=== PATIENT | female | born 1950 | race Caucasian/White ===

== ENCOUNTER 2023-08-15 10:11 | Outpatient (CLI) | payer MEDICARE, BC, SELFPAY ==
--- NOTE | 2023-08-15 10:30 | PE_ITS ---
[facility] [address] [address] Phone:?[phone] Fax:?[phone] Referring Physician Information: Elsie Dewey M.D. [address] [address] Phone:?[phone] Fax:?[phone] Patient:Chapito Cobos D.O.B:?1950 Sex:?Female Phone:?[phone] [facility] MRN:?[id number] Exam Date:?08/15/2023 EXAM: PET/CT EYES TO THIGHS, CANCER RESTAGING CLINICAL INFORMATION: Lung cancer, restaging. TECHNICAL INFORMATION: Helical acquisition of data was obtained from the orbits to the upper thighs with reconstruction of 3.75 mm thick images at 3.[address] data was used for attenuation correction. PET scanning was performed through the same anatomic range 60 minutes following administration of 9.6 mCi of 18-FDG delivered intravenously. The patient's glucose at the time of the injection was 120 mg/dL. PET, CT and PET/CT fusion images are interpreted using a computer viewing workstation. PET, CT and PET/CT fusion images were archived and saved in the patient's permanent medical record. COMPARISON: Chest CT report (no available images) from 06/22/2023. INTERPRETATION: Head and Neck: There are no abnormal hypermetabolic foci within the head or neck. There is physiologic uptake in the intracranial soft tissues. Chest: Perihilar nodule in the right upper lobe (Se 2 Im 92) measures 1.8 x 1.8 cm with a maximum SUV of 25.69. Spiculated opacity in the right lower lobe (Se 2 Im 126) has a maximum SUV of 3.97, indeterminate. Right hilar lymph node (Se 2 Im 102) measures 1.2 x 1.0 cm with a maximum SUV of 21.69. Right lower paratracheal lymph node (Se 2 Im 98) measures 1.0 x 0.6 cm with a maximum SUV of 16.66. Background mediastinal blood pool uptake has a maximum SUV of 2.54. Abdomen and Pelvis: There are no abnormal hypermetabolic foci within the abdomen or pelvis. Background hepatic parenchymal uptake has a maximum SUV of 3.10. There is physiologic excretion of radiotracer in the urine and bowel. Bilateral adnexal cysts are present, measuring up to 7 cm on the left. Skeleton, Musculature, and Integument: No abnormal hypermetabolic foci within the skeleton. No freida osteoblastic or osteolytic disease. CONCLUSION: 1. Findings suggest primary lung cancer in the right upper lobe with two ipsilateral (N2) gayle metastases. A spiculated opacity in the right lower lobe shows modest FDG uptake, indeterminate for neoplastic versus benign etiology. 2. Bilateral adnexal cysts are present. No hypermetabolism or internal complexity is identified, but recommend nonemergent pelvic ultrasound for further evaluation, if/when clinically appropriate. Electronically signed on 08/16/2023 1:17:00 PM by Vic Kennedy M.D.
== END 2023-08-15 10:12 | disposition home or self-care (01) ==
LOC: RAD 10:19
PROVIDERS: PCP Internal Medicine; Visit Provider Radiology Radiation Oncology
DX: C34.32 Malignant neoplasm of lower lobe, left bronchus or lung (principal)
CPT/HCPCS: 78815; A9552

== ENCOUNTER 2023-09-06 13:26 | Outpatient (CLI) | payer MEDICARE, BC, SELFPAY ==
--- NOTE | 2023-09-06 13:45 | MR_ITS ---
Patient: OLU ROMERO Facility:?[facility] Patient ID:?[id number] Site Patient ID:?[id number]. Site :?1950 Study:?MRI-Head W/ and W/O Cont 11cc dotarem-09/06/2023 2:51:29 PM Ordering Physician:Terrell Glover Final Report: INDICATION: Lung cancer. TECHNIQUE: Multiplanar multisequence MR imaging of the brain prior to and following intravenous contrast. COMPARISON: CT brain 03/29/2023. 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 Mild diffuse cerebral volume loss. No mass effect or midline shift. Patchy FLAIR hyperintensities in the supratentorial white matter, typical for moderate chronic microvascular ischemic changes. Small chronic infarctions within the high right frontal lobe, right basal ganglia, thalami, and right hemipons. No diffusion restriction to suggest acute infarction. No pathologic intracranial enhancement. Numerous punctate foci of susceptibility at the cortical- subcortical interface of both cerebral hemispheres, as well as involving the right cerebellar hemisphere to a lesser degree, typical for chronic microhemorrhages. No recent intracranial hemorrhage or pathologic extra-axial fluid collection. The major arterial flow voids of the skullbase are preserved. Thinning of the ocular lenses. Minimal ethmoid sinus mucosal thickening. The mastoid air cells are clear. IMPRESSION: 1. No acute intracranial abnormality or evidence for intracranial metastatic disease. 2. 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 Small chronic infarctions in the supratentorial and infratentorial parenchyma. 3. Numerous chronic microhemorrhages in the cerebral hemispheres, most typical for sequelae of cerebral amyloid angiopathy. A lesser degree of microhemorrhages in the cerebellum raises the possibility of superimposed hypertensive angiopathy. 4. Moderate chronic microvascular ischemic changes and mild diffuse cerebral volume loss. Dictated by Geo Nunez MD @ 09/07/2023 2:16:56 PM Signed by:?Geo Nunez MD @09/07/2023 2:16:56 PM (Electronic Signature)
== END 2023-09-06 13:27 | disposition home or self-care (01) ==
LOC: MRI 13:27
PROVIDERS: PCP Internal Medicine; Visit Provider Physician Assistant
DX: C34.91 Malignant neoplasm of unspecified part of right bronchus or lung (principal); I63.89 Other cerebral infarction; I67.82 Cerebral ischemia
CPT/HCPCS: 70553; A9575

== ENCOUNTER 2023-09-23 07:02 | Day surgery (SDC) | payer MEDICARE, BC, SELFPAY ==
--- OUTSIDE RECORDS SUMMARY | 2023-09-23 07:05 | XMS_ITS | Clinical Summary ---
Author Name Unknown Organization [facility] Address [place], [place] [address] Care Team Providers Care Bureau Chief Name Role Phone [facility] Primary Care Provider Allergies Active Allergy Reactions Criticality Noted Date Comments Aspirin Bleeding 03/21/2012 Atenolol Rash 02/24/2018 Penicillins *Unknown - Pt Doesn't Remember 09/16 Medications Medication Sig Dispensed Refills Start Date End Date Status multivitamin (MVI) tablet Take 1 tablet by mouth once daily. 0 2 Active medication order composer [facility] Collagen pepides, powder form, 1 scoop daily 1 Active albuterol HFA (PRO-AIR; VENTOLIN; PROVENTIL) 90 mcg/actuation inhalerIndications:C hronic obstructive pulmonary disease, unspecified COPD type (HC) Inhale 1-2 Puffs by mouth every 4 hours if needed for Shortness Of Breath or Wheezing (cough). 1 Each 2 3 Active warfarin (COUMADIN) 2 mg tabletIndications:Ce rebrovascular accident (CVA) due to embolism of left middle cerebral artery (HC),Anticoagulation monitoring, INR range 2-3,Acute ischemic stroke (HC),Cerebrovascular accident (CVA) due to thrombosis of precerebral artery (HC),Cerebrovascular accident (CVA), unspecified mechanism (HC) Take by mouth 2 mg (2 mg x 1) every Mon, Wed, Fri; 4 mg (2 mg x 2) all other days in the evening OR as directed 3 Active levothyroxine (SYNTHROID) 75 mcg tabletIndications:Hy pothyroidism (acquired) TAKE ONE TABLET BY MOUTH EVERY DAY 90 Tablet 2 3 Active sertraline (ZOLOFT) 50 mg tabletIndications:De pression, unspecified depression type TAKE ONE TABLET BY MOUTH EVERY DAY 90 Tablet 2 3 Active simvastatin (ZOCOR) 40 mg tabletIndications:Hy perlipidemia, unspecified hyperlipidemia type TAKE ONE TABLET BY MOUTH AT BEDTIME 90 Tablet 2 3 Active fluticasone bzl-yrfizxbrbhzx-ygu anterol (Trelegy Ellipta) 100-62.5-25 mcg inhalerIndications:C hronic obstructive pulmonary disease, unspecified COPD type (HC) Inhale 1 Puff by mouth once daily. 180 Each 3 4 Active HYDROcodone-acetamin ophen (5-325 mg/tablet)Indication s:Acute left-sided thoracic back pain Take 1 Tablet by mouth every 4 hours if needed for Pain. Max acetaminophen dose: 4000 mg in 24 hrs. 20 Tablet 4 09/18/19 24 Discontinu ed(*Patien t states no longer taking) Active Problems Problem Noted Date Diagnosed Date Adenocarcinoma of left lung 07/09/2018 Wears glasses 03/13/2018 Overview: Follows at [facility]. Hypothyroidism (acquired) 09/09/2017 Hyperlipidemia 08/25/2014 Depression 08/25/2014 COPD (chronic obstructive pulmonary disease) 04/2015 HTN (hypertension) 03/21/2012 Anticoagulation monitoring, INR range 2-3 2011 Overview: Ok for every 6 weeks. See telephone enc dated 08/25/14. Anticoagulation JOSE- 11/06/17 WANTS TO STAY 6 WKS INR NURSE VISITS Verbal messages may be left for anticoagulation result, dosing, and instructions. Nina Mcmanus RN .................... 11/06/2017 2:05 PM Cerebrovascular accident (CV A) due to embolism of left middle cerebral artery 10/04/2011 Resolved Problems Problem Noted Date Diagnosed Date Resolved Date Pneumonia of right middle lo be due to infectious organism 08/15/2015 12/30/2017 Encounters Date Type Department Care Team Description 09/20/[address] [facility] [place] [address] [facility], Questions 09/18/2023 11:30 AM CDT Preop Visit [address], [place] [address] [facility] DO Pre-Op Exam (port placement 0408/24 [employer] discuss going off warfrin) 09/18/2023 Travel 09/13/[address] [address] [facility] DO Referral (Port Placement order) 09/13/[address], [place] [address] [facility] DO Procedure (PORT PLACEMENT) 09/06/2023 Orders Only [facility] Scanner 1 scan: (1-Ord) [place], [place] W/WO, 09/06/2023 08/29/2023 1:00 PM CDT Orders Only [address], [place] [address] Lab, [facility] 08/29/2023 Anticoagulation (warfarin) [address], [place] [address] 1, [facility] Anticoagulation 08/29/2023 Travel 08/15/2023 Orders Only [facility] Scanner 1 scan: (1-Ord) [facility], PET SKULL TO MID THIGH, 08/15/2023 08/01/2023 1:30 PM PRODUCTION CLERK Orders Only [address] [place] [address] Lab, [facility] 08/01/2023 Anticoagulation (warfarin) [address] [place] [address] 1, [facility] Anticoagulation 08/01/2023 Travel 07/29/[address], [place] [address] [facility] DO Anticoagulation (Annual re-enrollment ) 07/24/2023 Medical Messaging [address], [place] [address] [facility] [facility] [address] Scans 07/15/2023 8:50 AM PRODUCTION CLERK Office Visit [address], [place] [address] [facility] DO Follow Up (on results) 07/14/2023 Travel 07/11/2023 1:00 PM PRODUCTION CLERK Orders Only [address], [place] [address] Lab, [facility] 07/11/2023 Anticoagulation (warfarin) [address] [place] [address] 1, [facility] Anticoagulation 07/11/2023 Travel 07/01/[address], [place] [address] [facility] DO Refill Request (Kailyn Roberts) from Last 3 Months Immunizations Name Administration Dates Next Due COVID-19 Vaccine Spikevax (M oderna 50mcg/0.5mL) 12YO+ [id number] Formula PF 03/28/2023 COVID-19 vaccine ([employer] 30mcg/0.3mL) 12YO+ BIVALENT PF, MDV 04/02/2022 COVID-19 vaccine ([employer] 30mcg/0.3mL) PF, MDV 04/20/2021,09/10/2020,08/20/2020 Influenza, High-dose Inactivated 02/13/2016,02/16 Influenza, IIV3 (Age >=3 years) 04/01/2013 Influenza, IIV4 03/10/2014 Influenza, Inactivated AIIV4 (Age 65+ Years) Preserv Free 03/28/2023,04/02/2022,04/20/2021,2019 Influenza, Inactivated IIV3 (Age 65+ Years) Preserv Free 03/13/2019,02/24/2018,03/08/2017,2012 Pneumococcal Conj 20-valent (Prevnar 20) 05/28/2022 Pneumococcal Poly,23-Valent (Pneumovax) 12/10/2013 Pneumococcal conj 13-Valent (Prevnar 13) 02/13/2016 Tdap 10/16/2012 Zoster (Shingrix-RZV, recombinant) 12/01/2018, Family History Medical History Relation Name Comments Heart Disease Brother 2 [place] Cancer-breast Maternal Aunt Diabetes Maternal Grandmother Heart Disease Mother Other Sister 2 emphysema Relation Name Status Comments Brother 1 Brother 2 Daughter Alive Father unknow Maternal Aunt Maternal Grandmother Mother (Age 71) Sister 1 (Age 54) emphysema Sister 2 Son car accident Social History Tobacco Use Types Packs/Day Years Used Date Smoking Tobacco: Former Cigarettes 2 50 0 09/18/1961 - 09/19/2011 Smokeless Tobacco: Never Tobacco Cessation:Counseling Given: Not Answered Alcohol Use Standard Drinks/Week Comments Yes 0 (1 standard drink = 0.6 oz pur e alcohol) occassionally PHQ-2 Answer Date Recorded PHQ-2 TOTAL SCORE 0 03/28/2023 Social Connections Answer Date Recorded Frequency of Communication with Friends and Fami ly Not on file 06/12/2021 Financial Resource Strain Answer Date R ecorded Difficulty of Paying Living Expenses Not on file 06/12/2021 Difficulty of Paying Living Expenses Not on file 06/12/2021 Sex and Gender Information Value Date Recorded Sex Assigned at Not on file Gender Identity Not on file Sexual Orientation Not on file Obstetrics History Last Filed Vital Signs Vital Sign Reading Time Taken Comments Blood Pressure 152/92 09/18/2023 11:59 AM CDT Pulse 75 09/18/2023 11:57 AM CDT Temperature 37.1 ??C (98.8 ??F) 03/29/2023 8:58 AM CD T Respiratory Rate 16 06/20/2023 3:30 PM PRODUCTION CLERK Oxygen Saturation 94% 09/18/2023 11:57 AM CDT Inhaled Oxygen Concentration - - Weight 59.1 kg (130 lb 3.2 oz) 09/18/2023 11:57 AM CDT Height 160 cm (5' 3) 09/18/2023 11:57 AM CDT Body Mass Index 23.06 09/18/2023 11:57 AM CDT Plan of Treatment Health Maintenance Due Date Last Done Comments Tetanus booster 10/16/2022 10/16/2012, 10/16/2012 COVID-19 vaccine series ( season) 2023 03/28/2023, 04/02/2022, 04/20/2021, Additional history exists Influenza for age 65+ 02/16/2024 03/28/2023 , 04/02/2022, 04/20/2021, Additional history exists Medicare Wellness for age 65+ 03/28/2024, 03/30/2020, 03/13/2019 Depression screening for age 12+ 03/29/2024 03/29/2023, 03/29/2023, 03/28/2023, Additional history exists Mammogram for age 45-75 04/23/2024 04/23/20, 04/08/2020, 09/16/2017, Additional history exists Low Dose CT (for lung CA) ag e 50-80 2024 2023, 11/01/2022, 10/30/2021, Additional history exists BMI (ht and wt on same day) for age 18+ 09/17/2024 09/18/2023, 07/15/2023, 03/28/2023, Additional history exists Fecal testing sDNA-FIT (Cary guard) for age 45-75 09/27/2024 09/27/2021 Lipids for age 45-75 03/28/2028 03/28/2023, 05/28/2022, 04/14/2021, Additional history exists Tdap Completed 10/16/2012 DEXA/DXA scan for age 65+ Completed 09/10/2016 Zoster (shingles) series for age 50+ Completed 12/01/2018, 09/30/2018 Hepatitis C screening for ag e 18-79 Completed 03/13/2019 Pneumococcal series for age 65+ Completed 05/28/2022, 02/13/2016, 12/10/2013 Procedures Procedure Name Priority Date/Time Associated Diagnosis Comments SCAN-MRI INTERPRETATION 09/06/2023 12:00 AM CDT PROTIME-INR STAT 08/29/2023 12:56 PM CDT Cerebrovascular accident (CVA) due to embolism of left middle cerebral artery (HC) Anticoagulation monitoring, INR range 2-3 SCAN-PET SCAN 08/15/2023 12:00 AM PRODUCTION CLERK PROTIME-INR STAT 08/01/2023 1:25 PM PRODUCTION CLERK Cerebrovascular accident (CVA) due to embolism of left middle cerebral artery (HC) Anticoagulation monitoring, INR range 2-3 PROTIME-INR STAT 07/11/2023 12:50 PM PRODUCTION CLERK Cerebrovascular accident (CVA) due to embolism of left middle cerebral artery (HC) Anticoagulation monitoring, INR range 2-3 CT CHEST WO KELLIE 2023 2:09 PM PRODUCTION CLERK Acute left-sided thoracic back pain Adenocarcinoma of left lung (HC) LIPID PANEL W REFLEX MEASURED LDL Routine 03/28/2023 1:16 PM CDT HTN (hypertension) Cerebrovascular accident (CVA) due to embolism of left middle cerebral artery (HC) Other hyperlipidemia XR MAMMO BILAT SCREENING Routine 04/23/2022 10:11 AM PRODUCTION CLERK Encounter for screening mammogram for malignant neoplasm of breast FECAL DNA (AKA COLOGUARD) Routine 09/27/2021 12:00 AM CDT Screening for colon cancer ANTI HCV Routine 03/13/2019 3:42 PM CDT Need for hepatitis C screening test XR DXA BONE DENSITY 2 SITES AXIAL Routine 09/10/2016 2:54 PM CDT Asymptomatic postmenopausal state from Last 3 Months or Most Recently Relevant to Health Maintenance Results * SCAN-MRI INTERPRETATION (09/06/2023 12:00 AM CDT) Anatomical Region Laterality Modality Other Scanner OTHER * (ABNORMAL) PROTIME-INR (08/29/2023 12:56 PM CDT) Only the most recent of3 resultswithin the time period is included. INR 2.1(H) <1.3 08/29/2023 1:13 PM CDT [facility] PROTIME 22.8(H) 10.3 - 12.3 sec 08/29/2023 1:13 PM CDT [facility] Blood BLOOD SPECIMEN / Unknown Venipuncture / Unknown 08/29/2023 12:56 PM CDT 08/29/2023 12:56 PM CDT Narrative [facility] - 08/29/2023 1:13 PM CDT ?Therapeutic Range 2.0-3.0 for most anticoagulated patients 2.5-3.5 or 4.0 for high risk patients The INR is only used for patients on stable oral anticoagulant therapy. It makes no significant contribution to the diagnosis or treatment of patients whose Protime is prolonged for other reasons. INR results are increased when heparin levels exceed 1.0 U/mL, which corresponds to an aPTT >125 seconds if the patient is on UFH. Marbella Heart DO HEMATOLOGY [facility] [address] [place] [address] * SCAN-PET SCAN (08/15/2023 12:00 AM PRODUCTION CLERK) Anatomical Region Laterality Modality Other Scanner OTHER * CT CHEST WO (2023 2:09 PM PRODUCTION CLERK) Anatomical Region Laterality Modality CHEST, THORAX, HEART Computed To mography 06/22/2023 1:16 AM PRODUCTION CLERK Addenda Addendum by Janna Wood MD on 07/17/2023 11:15 AM PRODUCTION CLERK For Patients: ??As a result of the s Act, medical imaging exams and procedure reports are released immediately into your electronic medical record. ??You may view this report before your referring provider. ?? If you have questions, please contact your health care provider. Addendum: The chest CT from July 10 2023 was compared to that of November 01, 2022. 1. A spiculated mass in the left upper lobe measuring 7.6 mm is unchanged compared to the prior study. 2. A spiculated mass near the right hilum measuring 1.8 x 1.4 cm is increased in size compared to the prior study at which time it measured 5.6 mm. 3. A spiculated mass in the right lower lobe measuring 2.2 x 1.4 cm on 2023 study currently measures 2.2 x 1.4 cm and contains more soft tissue density compared to the prior exam. 4. An ill-defined ground-glass opacity in the right lower lobe on image 64 currently measures 1.2 x 2.7 cm and appears stable compared to the prior exam. 5. These findings are concerning for metastatic disease. Consider PET-CT for further evaluation. Remainder of the exam is stable compared to the prior study. Please note that all CT scans at this facility use dose modulation, iterative reconstruction, and/or weight-based dosing when appropriate to reduce radiation dose to as low as reasonably achievable. Dictated by Janna Wood MD @ Jul 17 2023 11:14AM (Electronically Signed) ?? Impressions 06/22/2023 1:16 AM PRODUCTION CLERK 1. No etiology seen to explain left sided back pain. 2. Pulmonary masses in the left upper lobe, right hilum, right lower lobe, and left lower lobe. Findings are concerning for metastatic disease. Consider PET-CT for further evaluation. 3. Chronic pancreatitis. 4. Coronary artery disease. Please note that all CT scans at this facility use dose modulation, iterative reconstruction, and/or weight-based dosing when appropriate to reduce radiation dose to as low as reasonably achievable. Dictated by Janna Wood MD @ 06/22/2023 1:16:40 AM (Electronically Signed) Narrative 06/22/2023 1:16 AM PRODUCTION CLERK For Patients: ??As a result of the 21st Century Cures Act, medical imaging exams and procedure reports are released immediately into your electronic medical record. ??You may view this report before your referring provider. ??If you have questions, please contact your health care provider. INDICATION: Acute left-sided thoracic back pain, history of adenocarcinoma of the left lower lobe TECHNIQUE: CT chest without contrast. COMPARISON: Chest radiograph March 12, 2022 FINDINGS: Cardiovascular structures: Heart size is normal. Coronary artery calcifications. Thoracic aorta and main pulmonary artery are normal in caliber. ? Mediastinum and ruy: No sign of mass or adenopathy. ?? Lungs: Emphysema. 7.6 mm pulmonary nodule in left upper lobe on image 14 series 3. Spiculated mass near the right hilum measuring 1.8 x 1.4 cm. Spiculated mass in the right lower lobe measuring 2.2 x 1.4 cm. Ill-defined ground-glass opacity in the right lower lobe image 64 series 3. 1.2 x 2.7 cm mass in the left lower lobe image 61 series 3. Pleura and pericardium: No effusions. ?? Chest wall and axilla: No mass or adenopathy. ?? Upper abdomen: Multiple pancreatic calcifications. Bones: No significant findings. Specifically, no fracture, subluxation, bony erosion, or suspicious osseous lesion. Procedure Note Janna Wood MD - 06/22/2023 For Patients: As a result of the Cures Act, medical imagingexams and procedure reports are released immediately into your electronicmedical record. You may view this report before your referring provider.If you have questions, please contact your health care provider. INDICATION: Acute left-sided thoracic back pain, history of adenocarcinoma of the leftlower lobe TECHNIQUE: CT chest without contrast. COMPARISON: Chest radiograph March 12, 2022 FINDINGS: Cardiovascular structures: Heart size is normal. Coronary arterycalcifications. Thoracic aorta and main pulmonary artery are normal incaliber. Mediastinum and ruy: No sign of mass or adenopathy. Lungs: Emphysema. 7.6 mm pulmonary nodule in left upper lobe on image 14series 3. Spiculated mass near the right hilum measuring 1.8 x 1.4 cm.Spiculated mass in the right lower lobe measuring 2.2 x 1.4 cm.Ill-defined ground-glass opacity in the right lower lobe image 64 series3. 1.2 x 2.7 cm mass in the left lower lobe image 61 series 3. Pleura and pericardium: No effusions. Chest wall and axilla: No mass or adenopathy. Upper abdomen: Multiple pancreatic calcifications. Bones: No significant findings. Specifically, no fracture, subluxation,bony erosion, or suspicious osseous lesion. IMPRESSION: 1. No etiology seen to explain left sided back pain. 2. Pulmonary masses in the left upper lobe, right hilum, right lower lobe,and left lower lobe. Findings are concerning for metastatic disease.Consider PET-CT for further evaluation. 3. Chronic pancreatitis. 4. Coronary artery disease. Please note that all CT scans at this facility use dose modulation,iterative reconstruction, and/or weight-based dosing when appropriate toreduce radiation dose to as low as reasonably achievable. Dictated by Janna Wood MD @ 06/22/2023 1:16:40 AM (Electronically Signed) [facility] DO CT * (ABNORMAL) LIPID PANEL W REFLEX MEASURED LDL (03/28/2023 1:16 PM CDT) CHOLESTEROL,TOTAL 167 100 - 199 mg/dL 03/28/2023 2:56 PM [facility] Comment: Cholesterol, Total Reference Ranges Desirable <200 mg/dL Borderline 200-239 mg/dL High >=240 mg/dL TRIGLYCERIDES 150(H) <150 mg/dL 03/28/2023 2:56 PM [facility] HDL CHOLESTEROL 66 >40 mg/dL 2:56 PM [facility] NON-HDL CHOLESTEROL 101 <145 mg/dl 03/28/2023 2:56 PM [facility] CHOL/HDL RATIO 2.53 <4.50 03/28/2023 2:56 PM [facility] LDL CHOLESTEROL 71 <=130 mg/dL 03/28/2023 2:56 PM [facility] VLDL CHOLESTEROL 30 <=30 mg/dL 03/28/2023 2:56 PM [facility] PROVIDER ORDERED STATUS RANDOM 03/28/2023 2:56 PM CDT [facility] Blood BLOOD SPECIMEN / Unknown Venipuncture / Unknown 03/28/2023 1:16 PM CDT 03/28/2023 1:17 PM CDT [facility] DO CHEMISTRY [facility] [address] [place] [address] * XR MAMMO BILAT SCREENING (04/23/2022 10:11 AM PRODUCTION CLERK) Anatomical Region Laterality Modality BREASTS, Breast Left, Breast Right Bilateral Mammography Impressions 04/23/2022 11:55 AM PRODUCTION CLERK ??There is no radiographic evidence for malignancy. ??Recommend annual mammograms. MAMMOGRAM ASSESSMENT: ??ACR 1 Negative PATIENTS: You will also receive a letter with your examination results in an easy to read format. ??If you have questions about your results, please contact your referring provider. Narrative 04/23/2022 11:55 AM PRODUCTION CLERK For Patients: As a result of the Century Cures Act, medical imaging exams and procedure reports are released immediately into your electronic medical record. You may view this report before your referring provider. If you have questions, please contact your health care provider. XR MAMMO BILAT SCREENING [[id number]] CLINICAL HISTORY: ??This is an asymptomatic 71 y.o. patient. INDICATION FOR EXAM: Mammogram Screening. TECHNIQUE: CC & MLO views were obtained. ??This study was evaluated with the assistance of Computer-Aided Detection. COMPARISON FILM: Yes 04/08/20 ? FINDINGS: ??The breasts have scattered areas of fibroglandular density. There are no dominant masses, suspicious micro calcifications or areas of architectural distortion. [facility] DO MAMMO * FECAL DNA (AKA COLOGUARD) (09/27/2021 12:00 AM CDT) [facility] DO COMMUNICATION ORD * ANTI HCV (03/13/2019 3:42 PM CDT) HEPATITIS C ANTIBODY Non-React thanh Non-React thanh 03/13/2019 11:18 PM CDT [facility] Comment:Antibodies to HCV no t detected; does not exclude the possibility of exposure to HCV. Blood BLOOD SPECIMEN / Unknown Venipuncture / Unknown 03/13/2019 3:42 PM CDT 03/13/2019 3:42 PM CDT [facility] DO SEND OUTS [facility] [address] [place] [address], [place] * XR DXA BONE DENSITY 2 SITES AXIAL (09/10/2016 2:54 PM CDT) Anatomical Region Laterality Modality Spine, HIPS, HIPL, HIPR Bone Den sitometry Narrative 09/12/2016 8:48 AM CDT Please see scanned document for results of this study. [facility] DO DEXA from Last 3 Months or Most Recently Relevant to Health Maintenance Advance Directives Documents on File Type Date Recorded Patient Spring Forger Expl anation Healthcare Directive 06/30/2012 2:01 PM AD SHAFFER DIRECTIVE, 06/30/2012 Care Teams Bureau Chief Relationship Specialty Start Date End Date [facility] Heart DO [address] [place] [address] [place] [address] PCP - General Internal Medicine 08/25/14
--- OUTSIDE RECORDS SUMMARY | 2023-09-23 07:06 | XMS_ITS ---
Author Name Unknown Organization [facility] Address [address] [place] [address] Care Team Providers Care Shot Lighter Name Role Phone Unavailable Primary Care Provider Unavailabl e Active Problems Problem Noted Date Diagnosed Date Malignant Neoplasm Of Lung Right 08/29/2023 Malignant Neoplasm Of Lung Left 03/03/2015 Current Oncology Plans No current plan information found. Past Plans No past plan information found. Radiation Treatments * No radiation treatments are documented for this patient in [facility]. Treatments may have been administered in another system. Lifetime Dose Tracking * Chemical Lifetime Dose Automatic Entry Manual Entr y Radiation 264.4 mGy 264.4 mGy 0 mGy Fluoro Time 9.29 minutes 9.29 minutes 0 minutes DAP (uGy-m2) 4,088.8 uGy-m2 4,088.8 uGy-m2 0 uGy-m2
--- OUTSIDE RECORDS SUMMARY | 2023-09-23 07:06 | XMS_ITS | Encounter Summary ---
Author Name Unknown Organization [facility] Address [address] [place] [address] Care Team Providers Care Flat Lock Operator Name Role Phone Unavailable Primary Care Provider Unavailabl e Reason for Referral * Radiation Therapy (Routine) - Closed Specialty Diagnoses / Procedures Referred By Ervin frye Referred To Contact Diagnoses Malignant Neoplasm Of Lung Right (HCC) Procedures Initial Rad Onc Treatment Planning CT Simulation Elsie Dewey M.D. [address] [place] [address] [facility] Region Referral ID Status Reason Start Date Expiration Date Visits Re quested Visits Authorized [id number] Closed 09/09/2023 09/08/2024 1 1 Reason for Visit * Radiation Therapy (Routine) - Closed Specialty Diagnoses / Procedures Referred By Ervin frye Referred To Contact Diagnoses Malignant Neoplasm Of Lung Right (HCC) Procedures Initial Rad Onc Treatment Planning CT Simulation Elsie Dewey M.D. [address] [place] [address] [facility] Region Referral ID Status Reason Start Date Expiration Date Visits Re quested Visits Authorized [id number] Closed 09/09/2023 09/08/2024 1 1 Encounter Details Date Type Department Care Team (Latest Contact Info) Description 09/11/2023 12:30 PM CDT - 09/11/2023 3:09 PM CDT Hospital Encounter Department of Radiation Oncology in [place], [place] [address] [place] [phone] Elsie Dewey M.D. [address] [place] [address] Malignant Neoplasm Of Lung Right (HCC) Social History Tobacco Use Types Packs/Day Years Used Date Smoking Tobacco: Former Cigarettes 2.5 45 0 09/25/1962 - 10/19/2011 Smokeless Tobacco: Never Alcohol Use Standard Drinks/Week Comments Yes 1 (1 standard drink = 0.6 oz pur e alcohol) Humiliation, Afraid, Rape, and Kick questionnair e Answer Date Recorded Within the last year, have y ou been afraid of your partner or ex-partner? No 10/31/2022 Within the last year, have y ou been humiliated or emotionally abused in other ways by your partner or ex-partner? No Within the last year, have y ou been kicked, hit, slapped, or otherwise physically hurt by your partner or ex-partner? No 10/31/2022 Within the last year, have y ou been raped or forced to have any kind of sexual activity by your partner or ex-partner? No 10/31/2022 Social Connection and Isolation Panel [NHANES] A nswer Date Recorded In a typical week, how many times do you talk on the phone with family, friends, or neighbors? Once a week 10/31/2022 How often do you get togethe r with friends or relatives? Patient declined 10/31/2022 How often do you attend caodaism or orthodoxy serv ices? Never 10/31/2022 Do you belong to any clubs o r organizations such as caodaism groups, unions, fraternal or athletic groups, or school groups? No 10/31/2022 How often do you attend meet ings of the clubs or organizations you belong to? Never 10/31/2022 Are you , , di vorced, , never , or living with a partner? 10/31/2022 AUDIT-C Answer Date Recorded Q1: How often do you have a drink containing alc ohol? Monthly or less 10/31/2022 Q2: How many drinks containi ng alcohol do you have on a typical day when you are drinking? 3 or 4 10/31/2022 Q3: How often do you have si x or more drinks on one occasion? Never 10/31/2022 Overall Financial Resource Strain (CARDIA) Answe r Date Recorded How hard is it for you to pa y for the very basics like food, housing, medical care, and heating? Not hard at all 10/31/2022 [facility] Occup[facility] - Occupational Stress Questionnaire Answer Date Recorded Do you feel stress - tense, restless, nervous, or anxious, or unable to sleep at night because your mind is troubled all the time - these days? Only a little 10/31/2022 Exercise Vital Sign Answer Date Recorde d On average, how many days pe r week do you engage in moderate to strenuous exercise (like a brisk walk)? 3 days 10/31/2022 On average, how many minutes do you engage in exercise at this level? 60 min 10/31/2022 Hunger Vital Sign Answer Date Recorded Within the past 12 months, y ou worried that your food would run out before you got the money to buy more. Never true 11/01/19 23 Within the past 12 months, t he food you bought just didn't last and you didn't have money to get more. Never true 10/31/2022 PRAPARE - Transportation Answer Date Re corded In the past 12 months, has l ack of transportation kept you from medical appointments or from getting medications? No 10/15 In the past 12 months, has l ack of transportation kept you from meetings, work, or from getting things needed for daily living? No 10/31/2022 Housing Stability Vital Sign Answer Mckay e Recorded In the last 12 months, was t here a time when you were not able to pay the mortgage or rent on time? No 10/31/2022 In the last 12 months, how many places have you lived? 1 10/31/2022 In the last 12 months, was t here a time when you did not have a steady place to sleep or slept in a residential (including now)? No 10/31/2022 Nutrition Answer Date Recorded Nutrition: EVOO Fat Source Yes 10/31 On average, how many serving s of fruits and vegetables do you eat per day (serving size is equal to 1 cup or approximately the size of a tennis ball)? 2-3 10/31/2022 Dental Answer Date Recorded Dental: Regular Dentist No 11/01/19 Employment Answer Date Recorded Employment status Retired 10/31/2022 Education Answer Date Recorded What is the highest level of school you have completed or the highest degree you have received? 10th grade 10/24/2020 Sex and Gender Information Value Date Recorded Sex Assigned at Female 04/17/2018 10:15 AM CDT Gender Identity Female 04/17/2018 10:15 AM CDT Sexual Orientation Straight 04/17/2018 10 :15 AM CDT documented as of this encounter Medications at Time of Discharge Medication Sig Dispensed Refills Start Date End Date albuterol 90 mcg/actuation inhaler INHALE ONE TO TWO PUFFS BY MOUTH EVERY 4 HOURS NEEDED FOR SHORTNESS OF BREATH OR WHEEZING 0 levothyroxine (SYNTHROID, LEVOTHROID) 75 mcg tablet Take 75 mcg by mouth daily. 0 05/28/2022 multivitamin tablet Take 1 tablet by mouth daily. 0 09/19/2011 sertraline (ZOLOFT) 50 mg tablet Take 50 mg by mouth daily. 0 05/28/2022 simvastatin (ZOCOR) 40 mg tablet Take 40 mg by mouth at bedtime. 0 05/28/2022 warfarin (COUMADIN) 2 mg tablet TAKE 1.5 TABLETS BY MOUTH EVERY E AND SAT; TAKE TWO TABLETS ALL OTHER DAYS OR DIRECTED 0 09/17/2022 Advair Diskus 250-50 mcg/act diskus inhaler 1 puff 2 (two) times a day. 0 10/10/2022 09/13/2023 ipratropium-albuterol (COMBIVENT RESPIMAT) 20-100 mcg/actuation inhaler Inhale 1-2 puffs 4 (four) times a day as needed. shortness of breath, wheezing 0 11/25/2013 09/13/2023 ipratropium-albuteroL (Combivent Respimat) 20-100 mcg/actuation inhaler Inhale 1 puff as needed. 0 05/28/2022 09/13/2023 documented as of this encounter Procedure Notes * Ese Castaneda José Miguel, RTT - 09/11/2023 1:00 PM CDTAssociated Order(s): Initial Rad Onc Treatment Planning CT Simulation Pre-Procedure Diagnose(s): Malignant Neoplasm Of Lung Right (HCC) Post-Procedure Diagnose(s): Malignant Neoplasm Of Lung Right (HCC) Initial Rad Onc Treatment Planning CT Simulation Performed by: Elsie Dewey M.D. Authorized by: Elsie Dewey M.D. Simulation was performed under physician supervision based on physician order in preparation for radiation therapy. Physician was immediately available to provide assistance and direction throughout the procedure. Written consent for treatment was completed or confirmed. The patient was appropriately identified and placed in the treatment position using the necessary immobilization to ensure a reproducible treatment position. Reference smith were placed to facilitate marking of isocenter. Area scanned:Chest Contrast used for the simulation procedure: IV Patient position:head first supine and arms up Custom immobilization: Vac-cara Motion management: 4D CT scan Bolus: No CT guidance: Following positioning of the patient, a series of slices was obtained to be utilized in treatment planning. CT images were transferred to the Eclipse treatment planning system, after a reference isocenter was determined and marked. Segmentation and treatment planning will take place prior to treatment delivery. Patient set up and imaging was appropriate and completed without incident. Skirt Panel Assembler use:No Associated attestation - Elsie Dewey M.D. - 09/11/2023 3:09 PM CDT I was present during all critical and eubanks portions of the procedure(s) and immediately available [facility] services the entire duration. See note for details. documented in this encounter Plan of Treatment Upcoming Encounters Date Type Department Care Team (Late st Contact Info) Description 09/23/2023 2:00 PM CDT Appointment Department of Radiation Oncology in [address] [phone] Elsie Dewey M.D. [address] [place] [phone] 09/24/2023 9:00 AM CDT Appointment Department of Radiation Oncology in [place], [place] [address] [place] [address] Elsie Dewey M.D. [address] [place] [phone] 09/24/2023 9:30 AM CDT Appointment Department of Radiation Oncology in [address] [phone] Elsie Dewey M.D. [address] [place] [phone] 09/25/2023 1:00 PM CDT Appointment Department of Radiation Oncology in [place], [place] [address] [place] [phone] Elsie Dewey M.D. [address] [place] [phone] 09/26/2023 1:00 PM CDT Appointment Department of Radiation Oncology in [address] [address] Elsie Dewey M.D. [address] [place] [phone] 09/26/2023 1:15 PM CDT Appointment Department of Radiation Oncology in [address] [phone] Elsie Dewey M.D. [address] [place] [phone] Kirsten Bella R.N. [address] [place] [phone] 09/27/2023 1:00 PM CDT Appointment Department of Radiation Oncology in [address] [phone] Elsie Dewey M.D. [address] [place] [address] 09/30/2023 1:00 PM CDT Appointment Department of Radiation Oncology in [address] [address] Elsie Dewey M.D. [address] [place] [phone] 10/01/2023 1:45 PM CDT Appointment Department of Radiation Oncology in [address] [address] Elsie Dewey M.D. [address] [place] [phone] 10/01/2023 2:00 PM CDT Appointment Department of Radiation Oncology in [address] [address] Elsie Dewey M.D. [address] [place] [phone] 10/02/2023 1:00 PM CDT Appointment Department of Radiation Oncology in [address] [address] Elsie Dewey M.D. [address] [place] [phone] 10/03/2023 1:45 PM CDT Appointment Department of Radiation Oncology in [address] [address] Elsie Dewey M.D. [address] [place] [address] 10/04/2023 1:45 PM CDT Appointment Department of Radiation Oncology in [place], [place] [address] [place] [phone] Elsie Dewey M.D. [address] [place] [phone] 10/07/2023 1:45 PM CDT Appointment Department of Radiation Oncology in [address] [phone] Elsie Dewey M.D. [address] [place] [phone] 10/08/2023 1:45 PM CDT Appointment Department of Radiation Oncology in [address] [address] Elsie Dewey M.D. [address] [place] [phone] 10/08/2023 2:00 PM CDT Appointment Department of Radiation Oncology in [address] [address] Elsie Dewey M.D. [address] [place] [phone] 10/09/2023 1:45 PM CDT Appointment Department of Radiation Oncology in [address] [address] Elsie Dewey M.D. [address] [place] [address] 10/10/2023 1:45 PM CDT Appointment Department of Radiation Oncology in [place], [place] [address] [place] [address] Elsie Dewey M.D. [address] [place] [address] 10/11/2023 1:45 PM CDT Appointment Department of Radiation Oncology in [place], [place] [address] [place] [phone] Elsie Dewey M.D. [address] [place] [phone] 10/14/2023 1:45 PM CDT Appointment Department of Radiation Oncology in [address] [phone] Elsie Dewey M.D. [address] [place] [phone] 10/15/2023 1:45 PM CDT Appointment Department of Radiation Oncology in [address] [address] Elsie Dewey M.D. [address] [place] [phone] 10/15/2023 2:15 PM CDT Appointment Department of Radiation Oncology in [address] [address] Elsie Dewey M.D. [address] [place] [phone] 10/16/2023 1:45 PM CDT Appointment Department of Radiation Oncology in [address] [address] Elsie Dewey M.D. [address] [place] [phone] 10/17/2023 1:45 PM CDT Appointment Department of Radiation Oncology in [place], [place] [address] [place] [phone] Elsie Dewey M.D. [address] [place] [address] 10/18/2023 1:45 PM CDT Appointment Department of Radiation Oncology in [place], [place] [address] [place] [phone] Elsie Dewey M.D. [address] [place] [address] 10/21/2023 1:45 PM CDT Appointment Department of Radiation Oncology in [address] [address] Elsie Dewey M.D. [address] [place] [phone] 10/22/2023 1:45 PM CDT Appointment Department of Radiation Oncology in [address] [address] Elsie Dewey M.D. [address] [place] [address] 10/22/2023 2:00 PM CDT Appointment Department of Radiation Oncology in [place], [place] [address] [place] [phone] Elsie Dewey M.D. [address] [place] [phone] 10/23/2023 1:45 PM CDT Appointment Department of Radiation Oncology in [place], [place] [address] [place] [phone] Elsie Dewey M.D. [address] [place] [address] 10/24/2023 1:45 PM CDT Appointment Department of Radiation Oncology in [place], [place] [address] [place] [phone] Elsie Dewey M.D. [address] [place] [address] 10/25/2023 1:45 PM CDT Appointment Department of Radiation Oncology in [address] [address] Elsie Dewey M.D. [address] [place] [phone] 10/28/2023 1:45 PM CDT Appointment Department of Radiation Oncology in [address] [address] Elsie Dewey M.D. [address] [place] [address] 10/29/2023 1:45 PM CDT Appointment Department of Radiation Oncology in [address] [address] Elsie Dewey M.D. [address] [place] [address] 10/29/2023 2:00 PM CDT Appointment Department of Radiation Oncology in [address] [address] Elsie Dewey M.D. [address] [place] [address] 10/30/2023 1:45 PM CDT Appointment Department of Radiation Oncology in [place], [place] [address] [place] [address] Elsie Dewey M.D. [address] [place] [address] 10/31/2023 1:45 PM CDT Appointment Department of Radiation Oncology in [place], [place] [address] [place] [phone] Elsie Dewey M.D. [address] [place] [phone] 11/01/2023 1:45 PM CDT Appointment Department of Radiation Oncology in [place], [place] [address] [place] [address] Elsie Dewey M.D. [address] [place] [phone] documented as of this encounter Procedures Procedure Name Priority Date/Time Associated Diagnosis Comments INITIAL RAD ONC TREATMENT PLANNING CT SIMULATION Routine 09/11/2023 1:00 PM CDT Malignant Neoplasm Of Lung Right (HCC) documented in this encounter Results * Initial Rad Onc Treatment Planning CT Simulation (09/11/2023 1:00 PM CDT) Narrative [facility] - 09/11/2023 1:00 PM CDT Ese Castaneda, RTT ? 09/11/2023 ??1:10 PM Initial Rad Onc Treatment Planning CT Simulation Performed by: Elsie Dewey M.D. Authorized by: Zuleima, Elsie I., M.D. ?? Elsie Dewey M.D. RADIATION ONCOLOG Y ORDERABLES MENDOZA JAIME na documented in this encounter Visit Diagnoses Diagnosis Malignant Neoplasm Of Lung Right (HCC) documented in this encounter
--- OUTSIDE RECORDS SUMMARY | 2023-09-23 07:06 | XMS_ITS | Encounter Summary ---
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 [address] [place] [phone] Social History Tobacco Use Types Packs/Day Years [...] declined 10/31/2022 How often do you attend baptist or denominational serv ices? Never 10/31/2022 Do you belong to any clubs o r organizations such as baptist groups, unions, fraternal or athletic groups, or [...] and heating? Not hard at all 10/31/2022 [facility] - Occupational Stress Questionnaire Answer Date Recorded [...] the money to buy more. Never true 05/17/20 23 Within the past 12 months, t [...] place to sleep or slept in a detention (including now)? No 10/31/2022 Nutrition Answer Date [...] AM CDT documented as of this encounter Miscellaneous Notes * Tumor Board Note - Elsie Dewey M.D. - 09/10/2023 1:12 PM CDT MULTIDISCIPLINARY TUMOR BOARD NOTE This patient's case was presented at our multidisciplinary tumor board on 09/10/[address] Elsie Dewey. 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 Pathology reviewed: none Discussion: We discussed that we are still waiting for her PDL1 and NGS testing. We discussed that she likely would not want neoadjuvant chemotherapy and that she is a good candidate for definitive radiation and chemotherapy. Medical Oncology suggested weekly carboplatin/taxol with definitive radiation. If she is felt not to be a chemotherapy candidate, then hypofractionated radiation alone is reasonable. Adjuvant immunotherapy would depend upon NGS testing. Recommendation: See above. Elsie Dewey M.D. Note: Tumor board recommendations are developed via multidisciplinary specialty participation with the most current information available at that time, therefore, final treatment plan is to be decided between the patient and the treating physician. documented in this encounter Plan of Treatment Upcoming Encounters Date Type Department Care Team (Late st Contact Info) Description 09/23/2023 2:00 PM CDT Appointment Department of Radiation Oncology in [address] [phone] Elsie Dewey M.D. [address] [place] [phone] 09/24/2023 9:00 AM CDT Appointment Department of Radiation Oncology in [address] [phone] Elsie Dewey M.D. [address] [place] [phone] 09/24/2023 9:30 AM CDT Appointment Department of Radiation Oncology in [address] [phone] Elsie Dewey M.D. [address] [place] [phone] 09/25/2023 1:00 PM CDT Appointment Department of Radiation Oncology in [address] [phone] Elsie Dewey M.D. [address] [place] [phone] 09/26/2023 1:00 PM CDT Appointment Department of Radiation Oncology in [place], [place] [address] [place] [address] Elsie Dewey M.D. [address] [place] [phone] 09/26/2023 1:15 PM CDT Appointment Department of Radiation Oncology in [place], [place] [address] [place] [phone] Elsie Dewey M.D. [address] [place] [phone] Kirsten Bella R.N. [address] [place] [phone] 09/27/2023 1:00 PM CDT Appointment Department of Radiation Oncology in [place], [place] [address] [place] [phone] Elsie Dewey M.D. [address] [place] [phone] 09/30/2023 1:00 PM CDT Appointment Department of Radiation Oncology in [place], [place] [address] [place] [address] Elsie Dewey M.D. [address] [place] [phone] 10/01/2023 1:45 PM CDT Appointment Department of Radiation Oncology in [place], [place] [address] [place] [address] Elsie Dewey M.D. [address] [place] [phone] 10/01/2023 2:00 PM CDT Appointment Department of Radiation Oncology in [place], [place] [address] [place] [phone] Elsie Dewey M.D. [address] [place] [address] 10/02/2023 1:00 PM CDT Appointment Department of Radiation Oncology in [place], [place] [address] [place] [phone] Elsie Dewey M.D. [address] [place] [phone] 10/03/2023 1:45 PM CDT Appointment Department of Radiation Oncology in [place], [place] [address] [place] [phone] Elsie Dewey M.D. [address] [place] [phone] 10/04/2023 1:45 PM CDT Appointment Department of Radiation Oncology in [address] [address] Elsie Dewey M.D. [address] [place] [phone] 10/07/2023 1:45 PM CDT Appointment Department of Radiation Oncology in [address] [address] Elsie Dewey M.D. [address] [place] [phone] 10/08/2023 1:45 PM CDT Appointment Department of Radiation Oncology in [address] [place] [address] Elsie Dewey M.D. [address] [place] [phone] 10/08/2023 2:00 PM CDT Appointment Department of Radiation Oncology in [address] [address] Elsie Dewey M.D. [address] [place] [phone] 10/09/2023 1:45 PM CDT Appointment Department of Radiation Oncology in [address] [address] Elsie Dewey M.D. [address] [place] [phone] 10/10/2023 1:45 PM CDT Appointment Department of Radiation Oncology in [place], [place] [address] [place] [phone] Elsie Dewey M.D. [address] [place] [phone] 10/11/2023 1:45 PM CDT Appointment Department of Radiation Oncology in [place], [place] [address] [place] [address] Elsie Dewey M.D. [address] [place] [phone] 10/14/2023 1:45 PM CDT Appointment Department of Radiation Oncology in [address] [phone] Elsie Dewey M.D. [address] [place] [phone] 10/15/2023 1:45 PM CDT Appointment Department of Radiation Oncology in [address] [phone] Elsie Dewey M.D. [address] [place] [address] 10/15/2023 2:15 PM CDT Appointment Department of Radiation Oncology in [address] [phone] Elsie Dewey M.D. [address] [place] [phone] 10/16/2023 1:45 PM CDT Appointment Department of Radiation Oncology in [address] [phone] Elsie Dewey M.D. [address] [place] [phone] 10/17/2023 1:45 PM CDT Appointment Department of Radiation Oncology in [address] [phone] Elsie Dewey M.D. [address] [place] [phone] 10/18/2023 1:45 PM CDT Appointment Department of Radiation Oncology in [address] [address] Elsie Dewey M.D. [address] [place] [phone] 10/21/2023 1:45 PM CDT Appointment Department of Radiation Oncology in [address] [address] Elsie Dewey M.D. [address] [place] [phone] 10/22/2023 1:45 PM CDT Appointment Department of Radiation Oncology in [place], [place] [address] [place] [phone] Elsie Dewey M.D. [address] [place] [phone] 10/22/2023 2:00 PM CDT Appointment Department of Radiation Oncology in [place], [place] [address] [place] [phone] Elsie Dewey M.D. [address] [place] [phone] 10/23/2023 1:45 PM CDT Appointment Department of Radiation Oncology in [place], [place] [address] [place] [phone] Elsie Dewey M.D. [address] [place] [phone] 10/24/2023 1:45 PM CDT Appointment Department of Radiation Oncology in [place], [place] [address] [place] [phone] Elsie Dewey M.D. [address] [place] [phone] 10/25/2023 1:45 PM CDT Appointment Department of Radiation Oncology in [address] [address] Elsie Dewey M.D. [address] [place] [phone] 10/28/2023 1:45 PM CDT Appointment Department of Radiation Oncology in [place], [place] [address] [place] [phone] Elsie Dewey M.D. [address] [place] [phone] 10/29/2023 1:45 PM CDT Appointment Department of Radiation Oncology in [place], [place] [address] [place] [phone] Elsie Dewey M.D. [address] [place] [phone] 10/29/2023 2:00 PM CDT Appointment Department of Radiation Oncology in [address] [address] Elsie Dewey M.D. [address] [place] [phone] 10/30/2023 1:45 PM CDT Appointment Department of Radiation Oncology in [address] [address] Elsie Dewey M.D. [address] [place] [phone] 10/31/2023 1:45 PM CDT Appointment Department of Radiation Oncology in [address] [address] Elsie Dewey M.D. [address] [place] [phone] 11/01/2023 1:45 PM CDT Appointment Department of Radiation Oncology in [address] [address] Elsie Dewey M.D. [address] [place] [phone] documented as of this encounter Visit Diagnoses Not on filedocumented in this encounter
--- OUTSIDE RECORDS SUMMARY | 2023-09-23 07:06 | XMS_ITS | Clinical Summary ---
Author Name Unknown Organization [facility] Address [address] [place] [address] Care Team Providers Care Train Electronic Technician Name Role Phone Unavailable Primary Care Provider Unavailabl e Source Comments Patient records contain information from all sites at [facility]. For routine questions regarding patient records, call [phone] during business hours, M-F 8:00 AM - 5:00 PM Central Time. Record requests for emergency care only can be directed to [phone] at any time.[facility] Allergies Active Allergy Reactions Criticality Noted Date Comments Aspirin GI bleeding 03/21/2012 Atenolol Rash 10/29/2019 Penicillins Other (see comments) 09/22/2011 Unknown reaction Medications Medication Sig Dispensed Refills Start Date End Date Status multivitamin tablet Take 1 tablet by mouth daily. 0 09/19/2011 Active levothyroxine (SYNTHROID, LEVOTHROID) 75 mcg tablet Take 75 mcg by mouth daily. 0 05/28/2022 Active simvastatin (ZOCOR) 40 mg tablet Take 40 mg by mouth at bedtime. 0 05/28/2022 Active sertraline (ZOLOFT) 50 mg tablet Take 50 mg by mouth daily. 0 05/28/2022 Active warfarin (COUMADIN) 2 mg tablet TAKE 1.5 TABLETS BY MOUTH EVERY SAT AND SAT; TAKE TWO TABLETS ALL OTHER DAYS OR DIRECTED 0 09/17/2022 Active albuterol 90 mcg/actuation inhaler INHALE ONE TO TWO PUFFS BY MOUTH EVERY 4 HOURS NEEDED FOR SHORTNESS OF BREATH OR WHEEZING 0 Active ipratropium-albut tammie (COMBIVENT RESPIMAT) 20-100 mcg/actuation inhaler Inhale 1-2 puffs 4 (four) times a day as needed. shortness of breath, wheezing 0 11/25/2013 09/13/2023 Discontinue d Advair Diskus 250-50 mcg/act diskus inhaler 1 puff 2 (two) times a day. 0 10/10/2022 09/13/2023 Discontinued ipratropium-albut Tammie (Combivent Respimat) 20-100 mcg/actuation inhaler Inhale 1 puff as needed. 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 Malignant Neoplasm Of Lung Right (HCC) 09/11/2023 12:06 PM CDT - 09/13/2023 3:24 PM CDT Hospital Encounter Department of Radiation Oncology in [address] [phone] Elsie Dewey M.D. Grieman, Kari A, R.N. Malignant Neoplasm Of Lung Right (HCC) (Primary Dx); Malignant Neoplasm Of Lung Left (HCC) 09/10/2023 Clinical Communication Department of Radiation Oncology in [address] [address] Albertina Stiles APRN, C.N.P., D.N.P. Results 09/10/2023 Tumor Board Conference Department of Radiation Oncology in [address] [address] Elsie Dewey M.D. 09/09/2023 2:53 PM CDT - 09/09/2023 4:42 PM CDT Hospital Encounter Department of Radiation Oncology in [place], [place] [address] [place] [address] Elsie Dewey M.D. Malignant Neoplasm Of Lung Left (HCC) (Primary Dx); Malignant Neoplasm Of Lung Right (HCC) 09/09/2023 Orders Only Division of Pulmonary Medicine in [place], [place] [address] [place] [phone] Nilo Pickett APRN, C.N.P., D.N.P. 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 Housmans, Philippe R, M.D., Ph.D. 09/05/2023 7:15 AM CDT - 09/05/2023 10:05 AM CDT Surgery [facility] [address] [place] [phone] Phil Abreu M.D. BRONCHOSCOPY FLEXIBLE, ENDOBRONCHIAL ULTRASOUND-GUIDED TRANSBRONCHIAL NEEDLE ASPIRATION. 09/05/2023 6:35 AM CDT Ancillary Procedure Department of General Surgery 09/05/2023 5:44 AM CDT - 09/05/2023 11:57 AM CDT Hospital Encounter [facility] [address] [place] [phone] Phil Abreu M.D. Malignant Neoplasm Of Lung Left (HCC); Nodules Pulmonary Multiple; Lymphadenopathy Mediastinum; Abnormal Positron Emission Tomography Scan Discharge Disposition: Home or Self Care 09/04/2023 11:59 AM CDT - 09/04/2023 11:59 PM CDT Hospital Encounter Department of Laboratory Medicine and Pathology, [facility], in [place], [place] [address] [place] [address] Nilo Pickett APRN, C.N.P., D.N.P. Malignant Neoplasm Of Lung Left (HCC); Nodules Pulmonary Multiple; Lymphadenopathy Mediastinum; Abnormal Positron Emission Tomography Scan; Stroke Cerebrovascular Accident Personal History; Anemia Microcytic Discharge Disposition: Home or Self Care 09/04/2023 10:55 AM CDT - 09/04/2023 11:58 AM CDT Hospital Encounter Department of Radiology, [facility] in [place], [place] [address] [place] [address] Nilo Pickett APRN C.N.P., D.N.P. Malignant Neoplasm Of Lung Left (HCC); Nodules Pulmonary Multiple; Lymphadenopathy Mediastinum; Abnormal Positron Emission Tomography Scan Discharge Disposition: Home or Self Care 09/04/2023 Documentation Division of Pulmonary Medicine in [place], [place] [address] [place] [address] Nilo Pickett APRN, C.N.Carlos., D.N.P. 09/04/2023 Orders Only Division of Pulmonary Medicine in [place], [place] [address] [place] [address] Nilo Pickett APRN, C.N.PJessica, D.N.P. Anemia Microcytic (Primary Dx) 08/30/2023 Clinical Communication Department of Radiation Oncology in [address] [phone] Elsie Dewey M.D. 08/29/2023 9:14 AM CDT - 08/29/2023 4:11 PM CDT Hospital Encounter Department of Radiation Oncology in [address] [phone] Elsie Dewey M.D. Malignant Neoplasm Of Lung Left (HCC) (Primary Dx); Malignant Neoplasm Of Lung Right (HCC) 08/29/2023 Documentation Division of Pulmonary Medicine in [place], [place] [address] [place] [address] Nilo Pickett APRN, C.N.Murtaza, D.N.P. 08/27/2023 Orders Only Department of Radiation Oncology in [place] [id number] [place] [address] Danielle Glover P.A.-C., M.S. 07/30/2023 2:54 PM FILTER TANK TENDER - 07/30/2023 4:35 PM FILTER TANK TENDER Hospital Encounter Department of Radiation Oncology in [place], [place] [address] [place] [address] Elsie Dewey M.D. Malignant Neoplasm Of Lung Left (HCC) (Primary Dx) 07/30/2023 Tumor Board Conference Department of Radiation Oncology in [place], [place] [address] [place] [address] Elsie Dewey M.D. from Last 3 Months Immunizations Name Administration Dates Next Due Influenza Split 03/24/2013 Social History Tobacco Use Types Packs/Day Years Used Date Smoking Tobacco: Former Cigarettes 2.5 45 0 09/25/1962 - 10/19/2011 Smokeless Tobacco: Never Tobacco Cessation:Counseling Given: Not Answered Alcohol Use Standard Drinks/Week Comments Yes 1 [...] declined 10/31/2022 How often do you attend episcopalian or gnosticist serv ices? Never 10/31/2022 Do you belong to any clubs o r organizations such as episcopalian groups, unions, fraternal or athletic groups, or [...] and heating? Not hard at all 10/31/2022 [facility] - Occupational Stress [...] place to sleep or slept in a nursing home (including now)? No 10/31/2022 Nutrition Answer Date [...] Orientation Straight 04/17/2018 10 :15 AM CDT Last Filed Vital Signs Vital Sign Reading Time Taken Comments Blood Pressure 152/84 09/09/2023 3:26 PM CDT Pulse 87 09/09/2023 3:26 PM CDT Temperature 36.5 ??C (97.7 ??F) 09/09/2023 3:26 PM CD T Respiratory Rate 15 09/05/2023 11:1 5 AM CDT Oxygen Saturation 92% 09/05/2023 11: 40 AM CDT Inhaled Oxygen Concentration - - Weight 57.9 kg (127 lb 10.3 oz) 024 12:36 PM CDT Height 157.5 cm (5' 2) 09/05/2023 6:11 AM CDT Body Mass Index 23.35 09/05/2023 6:11 AM CDT Plan of Treatment Upcoming Encounters Date Type Department Care Team (Late st Contact Info) Description 09/23/2023 2:00 PM CDT Appointment Department of Radiation Oncology in [place], [place] [address] [place] [address] Elsie Dewey M.D. [address] [place] [phone] 09/24/2023 9:00 AM CDT Appointment Department of Radiation Oncology in [place], [place] [address] [place] [phone] Elsie Dewey M.D. [address] [place] [phone] 09/24/2023 9:30 AM CDT Appointment Department of Radiation Oncology in [address] [address] Elsie Dewey M.D. [address] [place] [phone] 09/25/2023 1:00 PM CDT Appointment Department of Radiation Oncology in [place], [place] [address] [place] [phone] Elsie Dewey M.D. [address] [place] [phone] 09/26/2023 1:00 PM CDT Appointment Department of Radiation Oncology in [address] [address] Elsie Dewey M.D. [address] [place] [phone] 09/26/2023 1:15 PM CDT Appointment Department of Radiation Oncology in [address] [phone] Elsie Dewey M.D. [address] [place] [phone] Kirsten Bella R.N. [address] [place] [phone] 09/27/2023 1:00 PM CDT Appointment Department of Radiation Oncology in [address] [phone] Elsie Dewey M.D. [address] [place] [phone] 09/30/2023 1:00 PM CDT Appointment Department of Radiation Oncology in [address] [address] Elsie Dewey M.D. [address] [place] [phone] 10/01/2023 1:45 PM CDT Appointment Department of Radiation Oncology in [address] [phone] Elsie Dewey M.D. [address] [place] [phone] 10/01/2023 2:00 PM CDT Appointment Department of Radiation Oncology in [address] [address] Elsie Dewey M.D. [address] [place] [phone] 10/02/2023 1:00 PM CDT Appointment Department of Radiation Oncology in [address] [phone] Elsie Dewey M.D. [address] [place] [phone] 10/03/2023 1:45 PM CDT Appointment Department of Radiation Oncology in [address] [address] Elsie Dewey M.D. [address] [place] [phone] 10/04/2023 1:45 PM CDT Appointment Department of Radiation Oncology in [place], [place] [address] [place] [address] Elsie Dewey M.D. [address] [place] [phone] 10/07/2023 1:45 PM CDT Appointment Department of Radiation Oncology in [place], [place] [address] [place] [phone] Elsie Dewey M.D. [address] [place] [phone] 10/08/2023 1:45 PM CDT Appointment Department of Radiation Oncology in [address] [address] Elsie Dewey M.D. [address] [place] [phone] 10/08/2023 2:00 PM CDT Appointment Department of Radiation Oncology in [place], [place] [address] [place] [phone] Elsie Dewey M.D. [address] [place] [phone] 10/09/2023 1:45 PM CDT Appointment Department of Radiation Oncology in [place], [place] [address] [place] [address] Elsie Dewey M.D. [address] [place] [phone] 10/10/2023 1:45 PM CDT Appointment Department of Radiation Oncology in [place], [place] [address] [place] [phone] Elsie Dewey M.D. [address] [place] [phone] 10/11/2023 1:45 PM CDT Appointment Department of Radiation Oncology in [place], [place] [address] [place] [address] Elsie Dewey M.D. [address] [place] [phone] 10/14/2023 1:45 PM CDT Appointment Department of Radiation Oncology in [address] [address] Elsie Dewey M.D. [address] [place] [phone] 10/15/2023 1:45 PM CDT Appointment Department of Radiation Oncology in [place], [place] [address] [place] [phone] Elsie Dewey M.D. [address] [place] [phone] 10/15/2023 2:15 PM CDT Appointment Department of Radiation Oncology in [address] [address] Elsie Dewey M.D. [address] [place] [phone] 10/16/2023 1:45 PM CDT Appointment Department of Radiation Oncology in [address] [address] Elsie Dewey M.D. [address] [place] [phone] 10/17/2023 1:45 PM CDT Appointment Department of Radiation Oncology in [place], [place] [address] [place] [address] Elsie Dewey M.D. [address] [place] [phone] 10/18/2023 1:45 PM CDT Appointment Department of Radiation Oncology in [place], [place] [address] [place] [address] Elsie Dewey M.D. [address] [place] [phone] 10/21/2023 1:45 PM CDT Appointment Department of Radiation Oncology in [place], [place] [address] [place] [phone] Elsie Dewey M.D. [address] [place] [phone] 10/22/2023 1:45 PM CDT Appointment Department of Radiation Oncology in [place], [place] [address] [place] [phone] Elsie Dewey M.D. [address] [place] [phone] 10/22/2023 2:00 PM CDT Appointment Department of Radiation Oncology in [place], [place] [address] [place] [address] Elsie Dewey M.D. [address] [place] [address] 10/23/2023 1:45 PM CDT Appointment Department of Radiation Oncology in [place], [place] [address] [place] [phone] Elsie Dewey M.D. [address] [place] [phone] 10/24/2023 1:45 PM CDT Appointment Department of Radiation Oncology in [place], [place] [address] [place] [phone] Elsie Dewey M.D. [address] [place] [phone] 10/25/2023 1:45 PM CDT Appointment Department of Radiation Oncology in [address] [phone] Elsie Dewey M.D. [address] [place] [phone] 10/28/2023 1:45 PM CDT Appointment Department of Radiation Oncology in [address] [phone] Elsie Dewey M.D. [address] [place] [phone] 10/29/2023 1:45 PM CDT Appointment Department of Radiation Oncology in [address] [phone] Elsie Dewey M.D. [address] [place] [phone] 10/29/2023 2:00 PM CDT Appointment Department of Radiation Oncology in [address] [phone] Elsie Dewey M.D. [address] [place] [address] 10/30/2023 1:45 PM CDT Appointment Department of Radiation Oncology in [place], [place] [address] [place] [address] Elsie Dewey M.D. [address] [place] [address] 10/31/2023 1:45 PM CDT Appointment Department of Radiation Oncology in [place], [place] [address] [place] [phone] Elsie Dewey M.D. [address] [place] [address] 11/01/2023 1:45 PM CDT Appointment Department of Radiation Oncology in [place], [place] [address] [place] [address] Elsie Dewey M.D. [address] [place] [address] Health Maintenance Due Date Last Done Comments Bone Density Scan (Osteoporosis Screen) 1949 CT Colonography 1950 Cologuard 1950 FIT 1950 Hepatitis C Screening 1950 Mammogram 11/24/2013 11/24/2012 (Perf ormed elsewhere), 10/15/2012 (Performed elsewhere), 10/16/2011 (Performed elsewhere) Colonoscopy 01/15/2022 01/16/2012 Colorectal Cancer Screening 01/15/2022 DTaP,Tdap,and Td Vaccines (2 - Td or Tdap) 10/16/2022 10/16/2012 Depression Screening (Annual PHQ-2) 06/17/2023 Fall Risk Screen (Annual) 06/17/2023 Thyroid Stimulating Hormone (TSH) test for thyroid function 03/28/2024 03/28/2023, 05/28/2022, 04/14/2021, Additional history exists Fasting Glucose for Diabetes Screening 09/03/2026 09/04/2023, 03/29/2023, 03/28/2023, Additional history exists Zoster Vaccines Completed 12/01/2018, 09/30/2018 Pneumococcal vaccine (65+ years) Completed 05/28/2022, 02/13/2016, 12/10/2013 COVID-19 Vaccine Completed 03/28/2023, , 04/20/2021, Additional history exists Influenza Vaccine Completed 03/28/2023, , 04/20/2021, Additional history exists HPV Vaccines Aged Out No longer eligi ble based on patient's age to complete this topic Procedures Procedure Name Priority Date/Time Associated Diagnosis Comments INITIAL RAD ONC TREATMENT PLANNING CT SIMULATION Routine 09/11/2023 1:00 PM CDT Malignant Neoplasm Of Lung Right (HCC) OUTSIDE MR NEURO Routine 09/06/2023 2:00 PM CDT SPSMA RESULT Routine 09/05/2023 12:02 PM CDT Anemia Microcytic VITAMIN B12 ASSAY, S Routine 09/05/2023 12:02 PM CDT Anemia Microcytic FOLATE, S Routine 09/05/2023 12:02 PM CDT Anemia Microcytic FERRITIN, S Routine 09/05/2023 12:02 PM CDT Anemia Microcytic IRON AND TOT IRON-BINDING CAPACITY, S/P Routine 09/05/2023 12:02 PM CDT Anemia Microcytic ADULT OXYGEN THERAPY Routine 09/05/2023 10:19 AM CDT FL FLUORO LESS THAN 1 HOUR RAD - Routine (most inpatients and all outpatients) 09/05/2023 10:18 AM CDT CYTOLOGY FINE NEEDLE ASPIRATION (INCLUDES CORE BIOPSIES Routine 09/05/2023 8:10 AM CDT Malignant Neoplasm Of Lung Left (HCC) Nodules Pulmonary Multiple Lymphadenopathy Mediastinum Abnormal Positron Emission Tomography Scan LDA ANE ENDOTRACHEAL AIRWAY Routine 09/05/2023 7:54 AM CDT ROBOTIC-ASSISTED BRONCHOSCOPY 09/05/2023 7:08 AM CDT Malignant Neoplasm Of Lung Left (HCC) Nodules Pulmonary Multiple Lymphadenopathy Mediastinum Abnormal Positron Emission Tomography Scan BRONCHOSCOPY FLEXIBLE: TRANSBRONCHOSCOPIC BIOPSY (FORCEPS) 09/05/2023 7:08 AM CDT Malignant Neoplasm Of Lung Left (HCC) Nodules Pulmonary Multiple Lymphadenopathy Mediastinum Abnormal Positron Emission Tomography Scan BRONCHOSCOPY FLEXIBLE: ENDOBRONCHIAL ULTRASOUND GUIDED TRANSBRONCHIAL NEEDLE ASPIRATION 09/05/2023 7:08 AM CDT Malignant Neoplasm Of Lung Left (HCC) Nodules Pulmonary Multiple Lymphadenopathy Mediastinum Abnormal Positron Emission Tomography Scan SURGERY IMAGE EXAM Routine 09/05/2023 6:35 AM CDT ECG Routine 09/04/2023 12:32 PM CDT Malignant Neoplasm Of Lung Left (HCC) Nodules Pulmonary Multiple Lymphadenopathy Mediastinum Abnormal Positron Emission Tomography Scan PROTHROMBIN TIME (PT), P Routine 09/04/2023 12:11 PM CDT Malignant Neoplasm Of Lung Left (HCC) Nodules Pulmonary Multiple Lymphadenopathy Mediastinum Abnormal Positron Emission Tomography Scan Stroke Cerebrovascular Accident Personal History COMPREHENSIVE METABOLIC PANEL, S/P Routine 09/04/2023 12:11 PM CDT Malignant Neoplasm Of Lung Left (HCC) Nodules Pulmonary Multiple Lymphadenopathy Mediastinum Abnormal Positron Emission Tomography Scan CBC WITH DIFFERENTIAL, B Routine 09/04/2023 12:11 PM CDT Malignant Neoplasm Of Lung Left (HCC) Nodules Pulmonary Multiple Lymphadenopathy Mediastinum Abnormal Positron Emission Tomography Scan CT CHEST WITHOUT IV CONTRAST RAD - Routine (most inpatients and all outpatients) 09/04/2023 11:56 AM CDT Malignant Neoplasm Of Lung Left (HCC) Nodules Pulmonary Multiple Lymphadenopathy Mediastinum Abnormal Positron Emission Tomography Scan OUTSIDE NM PET Routine 08/15/2023 12:05 PM FILTER TANK TENDER from Last 3 Months Results * Initial Rad Onc Treatment Planning CT Simulation (09/11/2023 1:00 PM CDT) Narrative REJI SANDOVAL - 09/11/2023 1:00 PM CDT Ese Castaneda, RTT ? 09/11/2023 ??1:10 PM Initial Rad Onc Treatment Planning CT Simulation Performed by: Elsie Dewey M.D. Authorized by: Elsie Dewey M.D. ?? Elsie Dewey M.D. RADIATION ONCOLOG Y ORDERABLES Performing Organization Address City/[facility]/ZIP Co de Phone Number REJI SANDOVAL na * MR head/brain wo/w con-Outside MR Neuro (09/06/2023 2:00 PM CDT) Narrative [facility] - 09/09/2023 2:16 PM CDT This order has been created and auto-finalized to support the import of outside images. If available, original interpretation can be found on the Media Tab in Chart Review, in Document Viewer, or as an image in QREADS. If a re-interpretation or overread is required please follow defined workflow. ?? Provider Not In System IMG MRI PROCEDURE S Performing Organization Address [facility] Co de Phone Number [facility] NA * (ABNORMAL) SPSMA Result (09/05/2023 12:02 PM CDT) Neutrophilic Segs and Bands 86(H) 50 - 75 % 09/05/2023 1:36 PM CDT [facility] Lymphocytes 12(L) 18 - 42 % 09/05/2023 1:36 PM CDT [facility] Monocytes 1(L) 2 - 11 % 09/05/2023 1:36 PM CDT [facility] Basophils 1 0 - 2 % 09/05/2023 1:36 PM CDT [facility] Interpretation See Comment 1:36 PM CDT [facility] Comment: Hypochromic microcytic red blood cells are present: consider iron deficiency anemia. Reviewed by: Sina 09/05/2023 1:36 PM CDT [facility] Blood (Blood, Venous) 09/05/2023 12:02 PM CDT 09/05/2023 12:21 PM CDT Nilo Pickett APRN, C.N.P., Perri.N.P. L AB BLOOD ADD-ON [facility] [address] [place] [address], [facility] [address] [place] [address] * (ABNORMAL) Iron and Total Iron-Binding Capacity (09/05/2023 12:02 PM CDT) Iron 14(L) 35 - 145 mcg/dL 09/05/2023 1:04 PM CDT DTL Total Iron Binding Capacity 372 250 - 400 mcg/dL 09/05/2023 1:04 PM CDT DTL Percent Saturation 4(L) 14 - 50 % 09/05/2023 1:04 PM CDT DTL Blood (Blood, Venous) 09/05/2023 12:02 PM CDT 09/05/2023 12:31 PM CDT Nilo Pickett APRN, C.N.P., Perri.N.P. L AB BLOOD ADD-ON Performing Organization Address City/[facility]/ZIP Co de Phone Number [facility] [address] [place] [address], [facility] [address] [place] [address] * Folate (09/05/2023 12:02 PM CDT) Folate, S >20.0 >=4.0 mcg/L 09/05/2023 1: 21 PM CDT DTL Blood (Blood, Venous) 09/05/2023 12:02 PM CDT 09/05/2023 12:31 PM CDT Nilo Pickett APRN, C.N.P., Perri.N.P. L AB BLOOD ADD-ON [facility] [address] [place], [place] [address] [address] [place] [address] * Ferritin (09/05/2023 12:02 PM CDT) [facility] Ferritin, S 14 11 - 328 mcg/L 09/05/2023 1:04 PM CDT DTL Blood (Blood, Venous) 09/05/2023 12:02 PM CDT 09/05/2023 12:31 PM CDT Sylvia Tejeda APRN.N.P., D.N.P. L AB BLOOD ADD-ON [facility] [address] [address] * (ABNORMAL) Vitamin B12 Assay (09/05/2023 12:02 PM CDT) [facility] Vitamin B12 Assay, S 1127(H) 180 - 914 ng/L 09/05/2023 1:22 PM CDT DTL Comment: ----ADDITIONAL INFORMATION---- In patients being evaluated for vitamin B12 deficiency who have intrinsic factor blocking antibodies (IFBA), false elevations of B12 may occur due to IFBA interference thus potentially obscuring a physiological deficiency of B12. If observed B12 concentrations are discordant with clinical presentation, measurement of methylmalonic acid (MMA) should be considered. Blood (Blood, Venous) 09/05/2023 12:02 PM CDT 09/05/2023 12:31 PM CDT Sylvia Tejeda APRN.N.P., D.N.P. L AB BLOOD ADD-ON Performing Organization Address City/[facility]/ZIP Co de Phone Number [facility] [address] [place] [address], [facility] [address] [place] [address] * FL Fluoro Less Than 1 Hour (09/05/2023 10:18 AM CDT) Narrative [facility] [address] [facility] - 09/05/2023 10:19 AM CDT This exam does not require a radiologist review or interpretation. Please refer to the patient's medical record on this date for clinical details. Phil Abreu M.D. IMG FLUOROSCOPY PRO CEDURES [address] [facility] [address] [facility] * (ABNORMAL) Cytology Fine Needle Aspiration (including core biopsies) (09/05/2023 8:10 AM CDT) (A) 09/09/2023 9:40 AM CDT DTL Participated in the Interpretation Josseline Frank M.D.-Pathology Fellow(A) 09/09/2023 9:40 AM CDT DTL Report electronically signed by Segun Carrillo M.D. I verify that I have examined all relevant slides/materials for the specimen(s) and rendered or confirmed the diagnosis. (A) 09/09/2023 9:40 AM CDT DTL Gross Description A: Received 4 spray-fixed smears, 4 Diff-Quik stained smears, and 2cc of blood-tinged fluid. Specimen evaluated for adequacy on site. B: Received 9 Diff-Quik stained smears and tissue. Specimen evaluated for adequacy on site. Additionally, received in formalin labeled with the patient's name, medical record number and lung, right upper lobe is a 1.4 x 0.1 x 0.1 cm brown-brown soft tissue core and multiple fragments, fragments measuring 0.2-0.4 cm in length. ??The specimens are submitted en toto in cassettes B1-B2, B1 containing one core and three fragments and B2 containing eight fragments. ??Grossed by LMB. C: Received 3 spray-fixed smears, 3 Diff-Quik stained smears, and 2cc of blood-tinged fluid. Specimen evaluated for adequacy on site. D: Received 5 spray-fixed smears, 5 Diff-Quik stained smears, and 2cc of blood-tinged fluid. Specimen evaluated for adequacy on site. (A) 09/09/2023 9:40 AM CDT DTL Source A. Lung, Right upper lobe, EBUS fine needle aspiration B. Lung, Right upper lobe, Biopsy Touch Prep C. Lymph node, Station 7, EBUS fine needle aspiration D. Lymph node, Station 4, right, EBUS fine needle aspiration (A) 09/09/2023 9:40 AM CDT DTL Addendum Lymph node, Station 4, right, EBUs fine needle aspiration (smears/cell block), specimen for PD-L1 immunohistochemist ry studies (cone 22C3, [employer] [place], [place], [place]; using a proprietary detection system (D1): 99% tumor cells are positive for PD-L1 (membranous positivity). Interpretation: Studies suggest that positive PD-L1 immunohistochemist ry in tumor cells and/or tumor-associated immune cells may predict tumor response to therapy with immune checkpoint inhibitors. This result should not be used as the sole factor in determining treatment, as other factors (for example, tumor mutation burden, and microsatellite instability) have been also studied as predictive markers. Fixation: This test has been validated for non-decalcified paraffin embedded tissue specimens fixed in 10% neutral buffered formalin. ??This assay has not been validated on tissues subjected to the decalcification process and/or use of alternative fixatives for bone/bone marrow specimens or cell blocks. Signed by Tena Kay M.D. 09/12/2023 8:24 AM This test was developed using an analyte specific reagent. Its performance characteristics were determined by [facility] in a manner consistent with CLIA requirements. This test has not been cleared or approved by the U.S. Food and Drug Administration. Test results for (IHC or SARA) testing are valid for specimens fixed between 6 and 72 hours. ??Delay to fixation, under fixation or over fixation fall outside of guidelines and may affect these results. Genetic testing for [facility] Solid Tumor Panel (MCSTP) will be performed and resulted in the patient's medical record. Signed by Palmer Chang M.D., Ph.D. 09/10/2023 11:52 AM(A) 09/12/2023 8:24 AM CDT DTL Comment:REVISED RESULTS Interpretation A. Lung, Right upper lobe, EBUS fine needle aspiration (smears/cell block): Atypical. ??Abnormal epithelial cells, favor reactive/degenerat thanh etiology. Scanty cellularity. ? The cell block is noncontributory. B. Lung, Right upper lobe, Biopsy Touch Prep (smears/tissue): Atypical. Scanty cellularity. ?Scattered atypical cells within alveolated lung parenchyma and bronchial tissue. The scarcity of atypical cells precludes a definitive diagnosis. C. Lymph node, Station 7, EBUS fine needle aspiration (smears/cell block): Negative for malignancy. Lymphocytes consistent with sampled lymph node. ?? The cell block is noncontributory. D. Lymph node, Station 4, right, EBUS fine needle aspiration (smears/cell block): Positive for malignancy. Consistent with metastatic pulmonary adenocarcinoma. Note: Tumor cells are positive for TTF-1, Napsin A, and CK7, and negative for p40, supporting the above diagnosis. Immunohistochemica l stains were performed at [facility] (block A1). KRT7, Napsin A, TTF1(SPT24), p40.(A) 09/12/2023 8:24 AM CDT DTL Aspirate (Lung, Right Upper Lobe) 09/05/2023 8:10 AM CDT Tissue (Lung, Right Upper Lobe) 09/05/2023 9:11 AM CDT Aspirate (Lymph Node) 09/05/2023 9:38 AM CDT Aspirate (Lymph Node) 09/05/2023 9:43 AM CDT Phil Abreu M.D. LAB SURG PATH ORDER MAGDALENO [facility] [address] [place] [address], [facility] DTL [address] [place] [address] * LDA ANE ENDOTRACHEAL AIRWAY (09/05/2023 7:54 AM CDT) Narrative Dariusz Pacheco APRN, CRNA, DNAP - 09/05/2023 7:54 AM CDT Dariusz Pacheco APRN, CRNA, DNAP ? 09/05/2023 ??7:57 AM Airway Date/Time: 09/05/2023 7:54 AM Performed by: Rufino Saavedra M.D., M.B.A. Authorized by: Darshana Reyes M.D. ?? Patient location during procedure: OR / Procedure Area PROCEDURE DETAILS: Mask difficulty assessment: oral/nasal airway needed Final airway type: video laryngoscope Laryngeal Manipulation: no ?? Final best view of glottic structures - Cormack/Lehane Score: grade 2A ETT location: oral VL device: glide scope Golden scope blade size: 3 Tube size: 8 ETT distance at teeth/gum: 21 Oral tube type: standard ETT Cuffed: yes Number of attempt to successful placement: 1 Airway confirmation: bilateral breath sounds, positive ETCO2 and bilateral chest rise Other previous techniques attempted: none PRE PROCEDURE DETAILS: Pre evaluation for airway management: procedure Urgency: elective Preop assessment of probable difficulty: no difficulty anticipated Preoxygenation: bag valve mask SEDATION / ANESTHESIA Anesthesia method: anesthesia POST PROCEDURE DETAILS: ? Procedure outcome: successful ?? Notable Events: no complications Darshana Reyes M.D. ANESTHESIA ORDERAB LES * Surgery Image Exam-Surgery Image Exam (09/05/2023 6:35 AM CDT) 09/05/2023 6:31 AM CDT Narrative IIMS - 09/05/2023 10:19 AM CDT This order has been created and auto-finalized to support the import of images acquired without order. The clinical documentation to support these images can be found on the encounter that produced images. Provider Not In System IMG NON RAD IMAGI NG PROCEDURES IIWV NA * ECG 12 Lead (09/04/2023 12:32 PM CDT) Ventricular Rate ECG/Min 70 BPM MUSE MN Interval 168 ms MUSE QRSD Interval 74 ms MUSE QT Interval 408 ms MUSE QTC Interval 440 ms MUSE P [place] 81 degrees MUSE R [place] 27 degrees MUSE T Wave [place] 49 degrees MUSE 09/04/2023 12:3 2 PM CDT 09/04/2023 12:49 PM CDT Impressions MUSE - 09/04/2023 12:49 PM CDT Normal sinus rhythm Normal ECG When compared with ECG of 30-MAR-2015 10:29, No significant change was found Reviewed by MATT Zuñiga Narrative Procedure Note Jerson Deleon M.D., M.P.H. - 09/04/2023 IMPRESSION: Normal sinus rhythm Normal ECG When compared with ECG of 30-MAR-2015 10:29, No significant change was found Reviewed by MATT Zuñiga Nilo Pickett APRN, C.N.P., D.N.P. E CG ORDERABLES Performing Organization Address City/[facility]/ZIP Co de Phone Number MUSE NA * Prothrombin Time (PT) (09/04/2023 12:11 PM CDT) Prothrombin Time, P 11.8 9.4 - 12.5 sec 09/04/2023 1:14 PM CDT DTL INR 1.1 0.9 - 1.1 09/04/2023 1:14 PM CDT DTL Comment: ----ADDITIONAL INFORMATION---- Standard intensity warfarin therapeutic range: 2.0 to 3.0 ?? High intensity warfarin therapeutic range: 2.5 to 3.5 Blood (Blood, Venous) 09/04/2023 12:11 PM CDT 09/04/2023 12:36 PM CDT Agustina Tejeda APRNN.PJessica, D.N.P. L AB BLOOD ADD-ON Performing Organization Address City/[facility]/ZIP Co de Phone Number [facility] [address] [place] [address], [facility] DTL [facility] [address] [place] [address] * (ABNORMAL) CBC with Differential, Blood (09/04/2023 12:11 PM CDT) Pathologist [facility] Hemoglobin 9.5(L) 11.6 - 15.0 g/dL 09/04/2023 12:47 PM CDT DTL Hematocrit 31.6(L) 35.5 - 44.9 % 09/04/2023 12:47 PM CDT DTL Erythrocytes 4.20 3.92 - 5.13 x10(12)/L 09/04/2023 12:47 PM CDT DTL MCV 75.2(L) 78.2 - 97.9 fL 09/04/2023 12:47 PM CDT DTL RBC Distrib Width 17.6(H) 12.2 - 16.1 % 09/04/2023 12:47 PM CDT DTL Platelet Count 297 157 - 371 x10(9)/L 09/04/2023 12:47 PM CDT DTL Leukocytes 7.5 3.4 - 9.6 x10(9)/L 09/04/2023 12:47 PM CDT DTL Neutrophils 4.15 1.56 - 6.45 x10(9)/L 09/04/2023 12:47 PM CDT DHPM Lymphocytes 2.55 0.95 - 3.07 x10(9)/L 09/04/2023 12:47 PM CDT DTL Monocytes 0.64 0.26 - 0.81 x10(9)/L 09/04/2023 12:47 PM CDT DTL Eosinophils 0.12 0.03 - 0.48 x10(9)/L 09/04/2023 12:47 PM CDT DTL Basophils 0.06 0.01 - 0.08 x10(9)/L 09/04/2023 12:47 PM CDT DTL Blood (Blood, Venous) 09/04/2023 12:11 PM CDT 09/04/2023 12:36 PM CDT Nilo Pickett APRN, C.N.P., D.N.P. L AB BLOOD ADD-ON [facility] [address] [place] [address], [facility] DTL [facility] [address] [place] [address] [facility] [address] [place] [address] * (ABNORMAL) Comprehensive Metabolic Panel (09/04/2023 12:11 PM CDT) [facility] Potassium, S 4.4 3.6 - 5.2 mmol/L 09/04/2023 1:33 PM CDT DTL Sodium, S 140 135 - 145 mmol/L 09/04/2023 1:33 PM CDT DTL Chloride, S 102 98 - 107 mmol/L 09/04/2023 1:33 PM CDT DTL Bicarbonate, S 28 22 - 29 mmol/L 09/04/2023 1:33 PM CDT DTL Anion Gap 10 7 - 15 09/04/2023 1:33 PM CDT DTL BUN (Blood Urea Nitrogen), S 20 6 - 21 mg/dL 09/04/2023 1:33 PM CDT DTL Creatinine 1.16(H) 0.59 - 1.04 mg/dL 09/04/2023 1:33 PM CDT DTL Estimated GFR (eGFR) 49(L) >=60 mL/min/BS A 09/04/2023 1:33 PM CDT DTL Comment: Estimated GFR calculated using the 2020 CKD_EPI creatinine equation. Calcium, Total, S 9.3 8.8 - 10.2 mg/dL 09/04/2023 1:33 PM CDT DTL Glucose, S 104 70 - 140 mg/dL 09/04/2023 1:33 PM CDT DTL Protein, Total, S 7.5 6.3 - 7.9 g/dL 09/04/2023 1:33 PM CDT DTL Albumin, S 4.6 3.5 - 5.0 g/dL 09/04/2023 1:33 PM CDT DTL Aspartate Aminotransferase (AST), S 23 8 - 43 U/L 09/04/2023 1:33 PM CDT DTL Alkaline Phosphatase, S 67 35 - 104 U/L 09/04/2023 1:33 PM CDT DTL Alanine Aminotransferase (ALT), S 15 7 - 45 U/L 09/04/2023 1:33 PM CDT DTL Bilirubin, Total, S 0.4 0.0 - 1.2 mg/dL 09/04/2023 1:33 PM CDT DTL Blood (Blood, Venous) 09/04/2023 12:11 PM CDT 09/04/2023 1:07 PM CDT Sylvia Tejeda APRN.N.P., D.N.PJessica L AB BLOOD ADD-ON [facility] [address] [place] [address], [place] DTL [facility] [address] [place] [address] * CT Chest without IV Contrast (09/04/2023 11:56 AM CDT) Anatomical Region Laterality Modality Chest, Thoracic RST LOS, Tho racic ARZ LOS, Thoracic FLA LOS N/A Computed Tomography, Compute d Tomography Impressions 09/04/2023 12:40 PM CDT 1. Continued interval increase in soft tissue component of a 20 mm nodule in the medial right upper lobe which is FDG avid on recent PET/CT and concerning for malignancy. 2. New indeterminate 3-4 mm soft tissue nodule in the central right upper lobe. 3. Stability of multiple variable sized irregular pulmonary nodules. Although stable cannot exclude multifocal bronchogenic carcinoma. Narrative 09/04/2023 12:40 PM CDT EXAM: CT CHEST WITHOUT IV CONTRAST COMPARISON: PET/CT 08/15/2023, chest CT 2023, 11/01/2022 FINDINGS: Continued interval increase in size of soft tissue component of a 20 mm soft tissue nodule in the medial right upper lobe (series 3/image 185). The lesion now completely fills of prior cavitary thin-walled lesion in this same location on comparison exams. Lesion has significant FDG activity on recent PET/CT and is concerning for malignancy. New 3-4 mm soft tissue nodule in the central right upper lobe (3/186). Stable 2 mm micronodule in the lateral anterior right upper lobe (3/251). Stable 20 mm peripheral groundglass lesion with central lucency in the lateral right lower lobe (3/403). Stable 20 mm thin-walled cavitary cyst in the central right lower lobe (3/361). Stable 20 x 18 mm irregular mixed solid and groundglass nodule in the posterior right lower lobe (3/452). Stable 26 x 13 mm mildly spiculated solid nodule in the medial left lower lobe (3/381). Stable 8 x 5 mm oval soft tissue nodule at the left apex (3/87). Scattered areas of diffuse mild and moderate centrilobular emphysema. No lymphadenopathy. Aberrant right subclavian artery. Aortic and moderate coronary artery calcification. Stable scattered coarse calcifications throughout the pancreas consistent with chronic pancreatitis. Slices of the upper abdomen otherwise negative. Mild degenerative changes of the spine. No aggressive osseous lesions. Procedure Note Jose Armando Villavicencio M.D. - 09/04/2023 EXAM: CT CHEST WITHOUT IV CONTRAST COMPARISON: PET/CT 08/15/2023, chest CT 2023, 11/01/2022 FINDINGS: Continued interval increase in size of soft tissue component of a 20 mmsoft tissue nodule in the medial right upper lobe (series 3/image 185).The lesion now completely fills of prior cavitary thin-walled lesion inthis same location on comparison exams. Lesion has significant FDG activity on recent PET/CT and isconcerning for malignancy. New 3-4 mm soft tissue nodule in the central right upper lobe (3/186). Stable 2 mm micronodule in the lateral anterior right upper lobe(3/251). Stable 20 mm peripheral groundglass lesion with central lucency in thelateral right lower lobe (3/403). Stable 20 mm thin-walled cavitary cyst in the central right lower lobe(3/361). Stable 20 x 18 mm irregular mixed solid and groundglass nodule in theposterior right lower lobe (3/452). Stable 26 x 13 mm mildly spiculated solid nodule in the medial left lowerlobe (3/381). Stable 8 x 5 mm oval soft tissue nodule at the left apex (3/87). Scattered areas of diffuse mild and moderate centrilobular emphysema. No lymphadenopathy. Aberrant right subclavian artery. Aortic and moderate coronary arterycalcification. Stable scattered coarse calcifications throughout thepancreas consistent with chronic pancreatitis. Slices of the upper abdomenotherwise negative. Mild degenerative changes of the spine. No aggressive osseous lesions. IMPRESSION: 1. Continued interval increase in soft tissue component of a 20 mm nodulein the medial right upper lobe which is FDG avid on recent PET/CT andconcerning for malignancy. 2. New indeterminate 3-4 mm soft tissue nodule in the central right upperlobe. 3. Stability of multiple variable sized irregular pulmonary nodules.Although stable cannot exclude multifocal bronchogenic carcinoma. Nilo Pickett APRN, C.N.P., D.N.P. I MG CT PROCEDURES * PET skull to mid thigh-Outside NM Pet (08/15/2023 12:05 PM FILTER TANK TENDER) 08/15/2023 12:0 5 PM FILTER TANK TENDER Narrative IIMS - 08/15/2023 1:19 PM FILTER TANK TENDER This order has been created and auto-finalized to support the import of outside images. If available, original interpretation can be found on the Media Tab in Chart Review, in Document Viewer, or as an image in QREADS. If a re-interpretation or overread is required please follow defined workflow. ?? 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 See document viewer.
--- OUTSIDE RECORDS SUMMARY | 2023-09-23 07:06 | XMS_ITS | Encounter Summary ---
Author Name Unknown Organization [facility] Address [address] [place] [address] Care Team Providers Care Consumer Safety Inspector Name Role Phone Unavailable Primary Care Provider Unavailabl e Reason for Visit * Reason Onset Date Comments Results 09/10/2023 Encounter Details Date Type Department Care Team (Late st Contact Info) Description 09/10/2023 Clinical Communication Department of Radiation Oncology in [place], [place] [address] [place] [phone] Albertina Stiles, SELINA, C.N.P., D.N.P. [address] [place] [phone] Results Social History Tobacco Use Types Packs/Day Years [...] declined 10/31/2022 How often do you attend roman catholic or worship serv ices? Never 10/31/2022 Do you belong to any clubs o r organizations such as roman catholic groups, unions, fraternal or athletic groups, or [...] and heating? Not hard at all 10/31/2022 [facility] [place] [facility] Occupat ional Health - Occupational Stress [...] money to buy more. Never true 11/01/19 Within the past 12 months, t he [...] place to sleep or slept in a half-way (including now)? No 10/31/2022 Nutrition Answer Date [...] as of this encounter Miscellaneous Notes * Telephone Encounter - Albertina Stiles APRN, C.N.P., D.N.P. - 09/10/2023 1:26 PM CDT I contacted the patient to update her of her final brain MRI report. This was not available at the time of her visit yesterday, 3/25, with Dr. Dewey. Brain MRI demonstrated no evidence for intracranial metastatic disease. She was reassured by this and verbalized appreciation. I reviewed her upcoming appointments scheduled for 09/10 regarding a planning scan to undergo radiation treatment. She verbalized understanding and agreement to the plan. documented in this encounter Plan of Treatment Upcoming Encounters Date Type Department Care Team (Late st Contact Info) Description 09/23/2023 2:00 PM CDT Appointment Department of Radiation Oncology in [address] [phone] Elsie Dewey M.D. [address] [place] [phone] 09/24/2023 9:00 AM CDT Appointment Department of Radiation Oncology in [address] [phone] Elsie Dewey M.D. [address] [place] [phone] 09/24/2023 9:30 AM CDT Appointment Department of Radiation Oncology in [address] [phone] Elsie Dewey M.D. [address] [place] [phone] 09/25/2023 1:00 PM CDT Appointment Department of Radiation Oncology in [address] [phone] Elsie Dewey M.D. [address] [place] [phone] 09/26/2023 1:00 PM CDT Appointment Department of Radiation Oncology in [place], [place] [address] [place] [phone] Elsie Dewey M.D. [address] [place] [phone] 09/26/2023 1:15 PM CDT Appointment Department of Radiation Oncology in [address] [phone] Elsie Dewey M.D. [address] [place] [phone] Kirsten Bella R.N. [address] [place] [phone] 09/27/2023 1:00 PM CDT Appointment Department of Radiation Oncology in [address] [phone] Elsie Dewey M.D. [address] [place] [phone] 09/30/2023 1:00 PM CDT Appointment Department of Radiation Oncology in [address] [phone] Elsie Dewey M.D. [address] [place] [phone] 10/01/2023 1:45 PM CDT Appointment Department of Radiation Oncology in [address] [phone] Elsie Dewey M.D. [address] [place] [phone] 10/01/2023 2:00 PM CDT Appointment Department of Radiation Oncology in [address] [phone] Elsie Dewey M.D. [address] [place] [phone] 10/02/2023 1:00 PM CDT Appointment Department of Radiation Oncology in [place], [place] [address] [place] [phone] Elsie Dewey M.D. [address] [place] [address] 10/03/2023 1:45 PM CDT Appointment Department of Radiation Oncology in [place], [place] [address] [place] [address] Elsie Dewey M.D. 200 [place] [phone] 10/04/2023 1:45 PM CDT Appointment Department of Radiation Oncology in [place], [place] [address] [place] [phone] Elsie Dewey M.D. 200 [place] [phone] 10/07/2023 1:45 PM CDT Appointment Department of Radiation Oncology in [place], [place] [address] [place] [address] Elsie Dewey M.D. 200 [place] [address] 10/08/2023 1:45 PM CDT Appointment Department of Radiation Oncology in [address] [phone] Elsie Dewey M.D. 200 [place] [address] 10/08/2023 2:00 PM CDT Appointment Department of Radiation Oncology in [address] [phone] Elsie Dewey M.D. [address] [place] [phone] 10/09/2023 1:45 PM CDT Appointment Department of Radiation Oncology in [address] [phone] Elsie Dewey M.D. [address] [place] [phone] 10/10/2023 1:45 PM CDT Appointment Department of Radiation Oncology in [address] [address] Elsie Dewey M.D. [address] [place] [phone] 10/11/2023 1:45 PM CDT Appointment Department of Radiation Oncology in [address] [phone] Elsie Dewey M.D. [address] [place] [phone] 10/14/2023 1:45 PM CDT Appointment Department of Radiation Oncology in [address] [address] Elsie Dewey M.D. [address] [place] [phone] 10/15/2023 1:45 PM CDT Appointment Department of Radiation Oncology in [address] [phone] Elsie Dewey M.D. [address] [place] [phone] 10/15/2023 2:15 PM CDT Appointment Department of Radiation Oncology in [place], [place] [address] [place] [address] Elsie Dewey M.D. [address] [place] [phone] 10/16/2023 1:45 PM CDT Appointment Department of Radiation Oncology in [place], [place] [address] [place] [phone] Elsie Dewey M.D. [address] [place] [phone] 10/17/2023 1:45 PM CDT Appointment Department of Radiation Oncology in [place], [place] [address] [place] [phone] Elsie Dewey M.D. [address] [place] [phone] 10/18/2023 1:45 PM CDT Appointment Department of Radiation Oncology in [place], [place] [address] [place] [phone] Elsie Dewey M.D. [address] [place] [phone] 10/21/2023 1:45 PM CDT Appointment Department of Radiation Oncology in [place], [place] [address] [place] [address] Elsei Dewey M.D. [address] [place] [phone] 10/22/2023 1:45 PM CDT Appointment Department of Radiation Oncology in [place], [place] [address] [place] [phone] Elsie Dewey M.D. [address] [place] [phone] 10/22/2023 2:00 PM CDT Appointment Department of Radiation Oncology in [place], [place] [address] [place] [phone] Elsie Dewey M.D. [address] [place] [phone] 10/23/2023 1:45 PM CDT Appointment Department of Radiation Oncology in [address] [address] Elsie Dewey M.D. [address] [place] [phone] 10/24/2023 1:45 PM CDT Appointment Department of Radiation Oncology in [place], [place] [address] [place] [phone] Elsie Dewey M.D. [address] [place] [phone] 10/25/2023 1:45 PM CDT Appointment Department of Radiation Oncology in [address] [address] Elsie Dewey M.D. [address] [place] [phone] 10/28/2023 1:45 PM CDT Appointment Department of Radiation Oncology in [address] [address] Elsie Dewey M.D. [address] [place] [phone] 10/29/2023 1:45 PM CDT Appointment Department of Radiation Oncology in [place], [place] [address] [place] [phone] Elsie Dewey M.D. [address] [place] [phone] 10/29/2023 2:00 PM CDT Appointment Department of Radiation Oncology in [place], [place] [address] [place] [phone] Elsie Dewey M.D. [address] [place] [phone] 10/30/2023 1:45 PM CDT Appointment Department of Radiation Oncology in [place], [place] [address] [place] [phone] Elsie Dewey M.D. [address] [place] [phone] 10/31/2023 1:45 PM CDT Appointment Department of Radiation Oncology in [place], [place] [address] [place] [phone] Elsie Dewey M.D. [address] [place] [phone] 11/01/2023 1:45 PM CDT Appointment Department of Radiation Oncology in [place], [place] [address] [place] [phone] Elsie Dewey M.D. [address] [place] [phone] documented as of this encounter Visit Diagnoses Not on filedocumented in this encounter
--- OUTSIDE RECORDS SUMMARY | 2023-09-23 07:06 | XMS_ITS | Encounter Summary ---
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 [address] [place] [address] [facility] Region Referral ID Status Reason Start Date Expiration Date Visits Re quested Visits Authorized [id number] Closed 09/09/2023 09/08/2024 1 1 Encounter Details Date Type Department Care Team (Latest Contact Info) Description 09/11/2023 12:06 PM CDT - 09/13/2023 3:24 PM CDT Hospital Encounter Department of Radiation Oncology in [place], [place] [address] [place] [phone] Elsie Dewey M.D. [address] [place] [phone] Bella Win R.N. [address] [place] [phone] Malignant Neoplasm Of Lung Right (HCC) (Primary Dx); Malignant Neoplasm Of Lung Left (HCC) Social History Tobacco Use Types Packs/Day [...] declined 10/31/2022 How often do you attend jewish or caodaism serv ices? Never 10/31/2022 Do you belong to any clubs o r organizations such as jewish groups, unions, fraternal or athletic groups, or [...] and heating? Not hard at all 10/31/2022 [facility] [place] [facility] Occup[facility] - Occupational Stress Questionnaire Answer Date Recorded [...] place to sleep or slept in a mcc (including now)? No 10/31/2022 Nutrition Answer Date Recorded Nutrition: EVOO Fat Source Yes 10/31 On average, how many serving s of fruits and vegetables do you eat per day (serving size is equal to 1 cup or approximately the size of a tennis ball)? 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 documented as of this encounter Last Filed Vital Signs Vital Sign Reading Time Taken Comments Blood Pressure - - Pulse - - Temperature - - Respiratory Rate - - Oxygen Saturation - - Inhaled Oxygen Concentration - - Weight 57.9 kg (127 lb 10.3 oz) 024 12:36 PM CDT Height - - Body Mass Index 23.35 09/05/2023 6:11 AM CDT documented in this encounter Medications at Time of Discharge [...] tablet TAKE 1.5 TABLETS BY MOUTH EVERY TUE AND SAT; TAKE TWO TABLETS ALL OTHER DAYS OR DIRECTED 0 09/17/2022 documented as of this encounter Plan of Treatment Upcoming Encounters Date Type Department Care Team (Late st Contact Info) Description 09/23/2023 2:00 PM CDT Appointment Department of Radiation Oncology in [place], [place] [address] [place] [phone] Elsie Dewey M.D. [address] [place] [address] 09/24/2023 9:00 AM CDT Appointment Department of Radiation Oncology in [place], [place] [address] [place] [address] Elsie Dewey M.D. [address] [place] [phone] 09/24/2023 9:30 AM CDT Appointment Department of Radiation Oncology in [address] [phone] Elsie Dewey M.D. [address] [place] [phone] 09/25/2023 1:00 PM CDT Appointment Department of Radiation Oncology in [place], [place] [address] [place] [phone] Elsie Dewey M.D. [address] [place] [phone] 09/26/2023 1:00 PM CDT Appointment Department of Radiation Oncology in [place], [place] [address] [place] [phone] Elsie Dewey M.D. [address] [place] [phone] 09/26/2023 1:15 PM CDT Appointment Department of Radiation Oncology in [place], [place] [address] [place] [address] Elsie Dewey M.D. [address] [place] [phone] Kirsten Bella R.N. [address] [place] [phone] 09/27/2023 1:00 PM CDT Appointment Department of Radiation Oncology in [place], [place] [address] [place] [address] Elsie Dewey M.D. [address] [place] [phone] 09/30/2023 1:00 PM CDT Appointment Department of Radiation Oncology in [place], [place] [address] [place] [address] Elsie Dewey M.D. [address] [place] [phone] 10/01/2023 1:45 PM CDT Appointment Department of Radiation Oncology in [place], [place] [address] [place] [phone] Eslie Dewey M.D. [address] [place] [phone] 10/01/2023 2:00 PM CDT Appointment Department of Radiation Oncology in [address] [phone] Elsie Dewey M.D. [address] [place] [phone] 10/02/2023 1:00 PM CDT Appointment Department of Radiation Oncology in [place], [place] [address] [place] [phone] Elsie Dewey M.D. [address] [place] [phone] 10/03/2023 1:45 PM CDT Appointment Department of Radiation Oncology in [place], [place] [address] [place] [phone] Elsie Dewey M.D. [address] [place] [phone] 10/04/2023 1:45 PM CDT Appointment Department of Radiation Oncology in [place], [place] [address] [place] [phone] Elsie Dewey M.D. [address] [place] [address] 10/07/2023 1:45 PM CDT Appointment Department of Radiation Oncology in [place], [place] [address] [place] [phone] Elsie Dewey M.D. [address] [place] [phone] 10/08/2023 1:45 PM CDT Appointment Department of Radiation Oncology in [address] [phone] Elsie Dewey M.D. [address] [place] [phone] 10/08/2023 2:00 PM CDT Appointment Department of Radiation Oncology in [address] [address] Elsie Dewey M.D. [address] [place] [phone] 10/09/2023 1:45 PM CDT Appointment Department of Radiation Oncology in [address] [address] Elsie Dewey M.D. [address] [place] [address] 10/10/2023 1:45 PM CDT Appointment Department of Radiation Oncology in [address] [address] Elsie Dewey M.D. [address] [place] [phone] 10/11/2023 1:45 PM CDT Appointment Department of Radiation Oncology in [place], [place] [address] [place] [address] Elsie Dewey M.D. [address] [place] [address] 10/14/2023 1:45 PM CDT Appointment Department of Radiation Oncology in [place], [place] [address] [place] [phone] Elsie Dewey M.D. [address] [place] [phone] 10/15/2023 1:45 PM CDT Appointment Department of Radiation Oncology in [place], [place] [address] [place] [address] Elsie Dewey M.D. [address] [place] [phone] 10/15/2023 2:15 PM CDT Appointment Department of Radiation Oncology in [place], [place] [address] [place] [phone] Elsie Dewey M.D. [address] [place] [address] 10/16/2023 1:45 PM CDT Appointment Department of Radiation Oncology in [place], [place] [address] [place] [phone] Elsie Dewey M.D. [address] [place] [phone] 10/17/2023 1:45 PM CDT Appointment Department of Radiation Oncology in [place], [place] [address] [place] [phone] Elsie Dewey M.D. [address] [place] [phone] 10/18/2023 1:45 PM CDT Appointment Department of Radiation Oncology in [place], [place] [address] [place] [phone] Elsie Dewey M.D. [address] [place] [phone] 10/21/2023 1:45 PM CDT Appointment Department of Radiation Oncology in [address] [address] Elsie Dewey M.D. [address] [place] [phone] 10/22/2023 1:45 PM CDT Appointment Department of Radiation Oncology in [place], [place] [address] [place] [phone] Elsie Dewey M.D. [address] [place] [address] 10/22/2023 2:00 PM CDT Appointment Department of Radiation Oncology in [place], [place] [address] [place] [phone] Elsie Dewey M.D. [address] [place] [phone] 10/23/2023 1:45 PM CDT Appointment Department of Radiation Oncology in [address] [address] Elsie Dewey M.D. [address] [place] [phone] 10/24/2023 1:45 PM CDT Appointment Department of Radiation Oncology in [place], [place] [address] [place] [phone] Elsie Dewey M.D. [address] [place] [address] 10/25/2023 1:45 PM CDT Appointment Department of Radiation Oncology in [address] [address] Elsie Dewey M.D. [address] [place] [address] 10/28/2023 1:45 PM CDT Appointment Department of Radiation Oncology in [address] [address] Elsie Dewey M.D. [address] [place] [address] 10/29/2023 1:45 PM CDT Appointment Department of Radiation Oncology in [address] [address] Elsie Dewey M.D. [address] [place] [address] 10/29/2023 2:00 PM CDT Appointment Department of Radiation Oncology in [address] [address] Elsie Dewey M.D. [address] [place] [address] 10/30/2023 1:45 PM CDT Appointment Department of Radiation Oncology [place] [address] [place] [address] Elsie Dewey M.D. [address] [place] [address] 10/31/2023 1:45 PM CDT Appointment Department of Radiation Oncology in [place], [place] [address] [place] [phone] Elsie Dewey M.D. [address] [place] [address] 11/01/2023 1:45 PM CDT Appointment Department of Radiation Oncology in [place], [place] [address] [place] [address] Elsie Dewey M.D. [address] [place] [address] documented as of this encounter Visit Diagnoses Diagnosis Malignant Neoplasm Of Lung Right (HCC)- Primary Malignant Neoplasm Of Lung Left (HCC) documented in this encounter Administered Medications Inactive Administered Medications - up to 3 most recent administrations Medication Order MAR Action Action Date Dose Rate Site iohexoL 300 mg iodine/mL solution 80 mL (OMNIPAQUE) 80 mL, intravenous, Once in imaging, contrast, Starting on Sat09/11/23 at 1426, For 1 dose Given 09/11/2023 1:18 PM CDT 80 mL sodium chloride 0.9 % injection 10 mL 10 mL, intravenous, As needed, line care, Peripheral Intravenous Catheter and Rapid Infusion Catheter, Starting on Sat09/11/23 at 1426, Prior to blood sampling, post blood transfusion or post blood sampling. Given 09/11/2023 1:25 PM CDT 10 mL Given 09/11/2023 1:10 PM CDT 10 mL documented in this encounter
--- OUTSIDE RECORDS SUMMARY | 2023-09-23 07:06 | XMS_ITS | Referral Summary ---
Author Name Unknown Organization [facility] Address [address] [place] [address] Care Team Providers Care Head Stock Transfer Clerk Name Role Phone Unavailable Primary Care Provider Unavailabl e Source Comments Patient records contain information from all sites at [facility]. For routine questions regarding patient records, call [phone] during business hours, M-F 8:00 AM - 5:00 PM Central Time. Record requests for emergency care only can be directed to [phone] at any time.[facility] Encounters Date Type Department Care Team Description 09/11/2023 12:06 PM CDT - 09/13/2023 3:24 PM CDT Hospital Encounter Department of Radiation Oncology in [address] [address] Elsie Dewey M.D. Grieman, Kari A, R.N. Malignant Neoplasm Of Lung Right (HCC) (Primary Dx); Malignant Neoplasm Of Lung Left (HCC) 09/11/2023 12:30 PM CDT - 09/11/2023 3:09 PM CDT Hospital Encounter Department of Radiation Oncology in [address] [address] Elsie Dewey M.D. Malignant Neoplasm Of Lung Right (HCC) 09/10/2023 Clinical Communication Department of Radiation Oncology in [address] [address] Albertina Stiles APRN, C.NGavin, D.N.P. Results 09/10/2023 Tumor Board Conference Department of Radiation Oncology in [place], [place] [address] [place] [address] Elsie Dewey M.D. 09/09/2023 Orders Only Division of Pulmonary Medicine in [place], [place] [address] [place] [address] Nilo Pickett APRN, C.NGavin, D.N.P. 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 Malignant Neoplasm Of Lung Left (HCC) (Primary Dx); Malignant Neoplasm Of Lung Right (HCC) 09/05/2023 6:35 AM CDT Ancillary Procedure Department of General Surgery 09/05/2023 7:15 AM CDT - 09/05/2023 10:05 AM CDT Surgery [facility] OR [address] [place] [phone] Phil Abreu M.D. BRONCHOSCOPY FLEXIBLE, ENDOBRONCHIAL ULTRASOUND-GUIDED TRANSBRONCHIAL NEEDLE ASPIRATION. 09/05/2023 7:38 AM CDT Anesthesia Event [facility] OR [address] [place] [phone] Darshana Reyes M.D. Syd Patton M.D., Ph.D. 09/05/2023 5:44 AM CDT - 09/05/2023 11:57 AM CDT Hospital Encounter [facility] OR [address] [place] [phone] Phil Abreu M.D. Malignant Neoplasm Of Lung Left (HCC); Nodules Pulmonary Multiple; Lymphadenopathy Mediastinum; Abnormal Positron Emission Tomography Scan Discharge Disposition: Home or Self Care 09/04/2023 Documentation Division of Pulmonary Medicine in [place], [place] [address] [place] [address] Nilo Pickett APRN, AgustinaN.PJessica, D.N.P. 09/04/2023 Orders Only Division of Pulmonary Medicine in [place], [place] [address] [place] [address] Nilo Pickett APRN, C.N.PJessica, D.N.P. Anemia Microcytic (Primary Dx) 09/04/2023 11:59 AM CDT - 09/04/2023 11:59 PM CDT Hospital Encounter Department of Laboratory Medicine and Pathology, [place], [place] [address] [place] [address] Nilo Pickett APRN, Sylvia.N.P., D.N.P. Malignant Neoplasm Of Lung Left (HCC); Nodules Pulmonary Multiple; Lymphadenopathy Mediastinum; Abnormal Positron Emission Tomography Scan; Stroke Cerebrovascular Accident Personal History; Anemia Microcytic Discharge Disposition: Home or Self Care 09/04/2023 10:55 AM CDT - 09/04/2023 11:58 AM CDT Hospital Encounter Department of Radiology, [facility] in [place], [place] [address] [place] [address] Nilo Pickett APRN, Sylvia.N.P., D.N.P. Malignant Neoplasm Of Lung Left (HCC); Nodules Pulmonary Multiple; Lymphadenopathy Mediastinum; Abnormal Positron Emission Tomography Scan Discharge Disposition: Home or Self Care 08/30/2023 Clinical Communication Department of Radiation Oncology in [place], [place] [address] [place] [address] Elsie Dewey M.D. 08/29/2023 Documentation Division of Pulmonary Medicine in [place], [place] [address] [place] [address] Nilo Pickett APRN, Sylvia.N.P., D.N.P. 08/29/2023 9:14 AM CDT - 08/29/2023 4:11 PM CDT Hospital Encounter Department of Radiation Oncology in [place], [place] [address] [place] [phone] Elsie Dewey M.D. Malignant Neoplasm Of Lung Left (HCC) (Primary Dx); Malignant Neoplasm Of Lung Right (HCC) 08/27/2023 Orders Only Department of Radiation Oncology in [address] [address] Danielle Glover P.A.-C., M.S. 07/30/2023 Tumor Board Conference Department of Radiation Oncology in [address] [address] Elsie Dewey M.D. 07/30/2023 2:54 PM SENIOR QC TECHNICIAN - 07/30/2023 4:35 PM SENIOR QC TECHNICIAN Hospital Encounter Department of Radiation Oncology in [address] [address] Elsie Dewey M.D. Malignant Neoplasm Of Lung Left (HCC) (Primary Dx) from Last 3 Months Allergies Active Allergy Reactions Criticality Noted Date [...] 08/29/2023 Malignant Neoplasm Of Lung Left 03/03/2015 Immunizations Name Administration Dates Next Due Influenza [...] declined 10/31/2022 How often do you attend gnosticist or yazdanism serv ices? Never 10/31/2022 Do you belong to any clubs o r organizations such as gnosticist groups, unions, fraternal or athletic groups, or [...] and heating? Not hard at all 10/31/2022 [facility] - Occupational [...] CDT Appointment Department of Radiation Oncology in [place], [place] [address] [place] [address] Elsie Dewey M.D. [address] [place] [address] 09/24/2023 9:00 AM CDT Appointment Department of Radiation Oncology in [place], [place] [address] [place] [phone] Elsie Dewey M.D. [address] [place] [address] 09/24/2023 9:30 AM CDT Appointment Department of Radiation Oncology in [address] [address] Elsie Dewey M.D. [address] [place] [address] 09/25/2023 1:00 PM CDT Appointment Department of Radiation Oncology in [place], [place] [address] [place] [phone] Elsie Dewey M.D. [address] [place] [phone] 09/26/2023 1:00 PM CDT Appointment Department of Radiation Oncology in [address] [address] Elsie Dewey M.D. [address] [place] [address] 09/26/2023 1:15 PM CDT Appointment Department of Radiation Oncology in [address] [address] Elsie Dewey M.D. [address] [place] [phone] Kirsten Bella R.N. [address] [place] [address] 09/27/2023 1:00 PM CDT Appointment Department of Radiation Oncology in [address] [address] Elsie Dewey M.D. [address] [place] [address] 09/30/2023 1:00 PM CDT Appointment Department of Radiation Oncology in [address] [address] Elsie Dewey M.D. [address] [place] [address] 10/01/2023 1:45 PM CDT Appointment Department of Radiation Oncology in [address] [address] Elsie Dewey M.D. [address] [place] [address] 10/01/2023 2:00 PM CDT Appointment Department of Radiation Oncology in [address] [address] Elsie Dewey M.D. [address] [place] [address] 10/02/2023 1:00 PM CDT Appointment Department of Radiation Oncology in [address] [address] Elsie Dewey M.D. [address] [place] [address] 10/03/2023 1:45 PM CDT Appointment Department of Radiation Oncology in [address] [address] Elsie Dewey M.D. [address] [place] [address] 10/04/2023 1:45 PM CDT Appointment Department of Radiation Oncology in [place], [place] [address] [place] [address] Elsie Dewey M.D. [address] [place] [address] 10/07/2023 1:45 PM CDT Appointment Department of Radiation Oncology in [place], [place] [address] [place] [phone] Elsie Dewey M.D. [address] [place] [address] 10/08/2023 1:45 PM CDT Appointment Department of Radiation Oncology in [address] [address] Elsie Dewey M.D. [address] [place] [phone] 10/08/2023 2:00 PM CDT Appointment Department of Radiation Oncology in [place], [place] [address] [place] [address] Elsie Dewey M.D. [address] [place] [address] 10/09/2023 1:45 PM CDT Appointment Department of Radiation Oncology in [place], [place] [address] [place] [address] Elsie Dewey M.D. [address] [place] [phone] 10/10/2023 1:45 PM CDT Appointment Department of Radiation Oncology in [place], [place] [address] [place] [address] Elsie Dewey M.D. [address] [place] [address] 10/11/2023 1:45 PM CDT Appointment Department of Radiation Oncology in [place], [place] [address] [place] [address] Elsie Dewey M.D. [address] [place] [address] 10/14/2023 1:45 PM CDT Appointment Department of Radiation Oncology in [address] [address] Elsie Dewey M.D. [address] [place] [address] 10/15/2023 1:45 PM CDT Appointment Department of Radiation Oncology in [place], [place] [address] [place] [phone] Elsie Dewey M.D. [address] [place] [address] 10/15/2023 2:15 PM CDT Appointment Department of Radiation Oncology in [address] [address] Elsie Dewey M.D. [address] [place] [address] 10/16/2023 1:45 PM CDT Appointment Department of Radiation Oncology in [address] [address] Elsie Dewey M.D. [address] [place] [phone] 10/17/2023 1:45 PM CDT Appointment Department of Radiation Oncology in [place], [place] [address] [place] [address] Elsie Dewey M.D. [address] [place] [address] 10/18/2023 1:45 PM CDT Appointment Department of Radiation Oncology in [place], [place] [address] [place] [address] Elsie Dewey M.D. [address] [place] [address] 10/21/2023 1:45 PM CDT Appointment Department of Radiation Oncology in [place], [place] [address] [place] [phone] Elsie Dewey M.D. [address] [place] [address] 10/22/2023 1:45 PM CDT Appointment Department of Radiation Oncology in [place], [place] [address] [place] [address] Elsie Dewey M.D. [address] [place] [phone] 10/22/2023 2:00 PM CDT Appointment Department of Radiation Oncology in [place], [place] [address] [place] [address] Elsie Dewey M.D. [address] [place] [address] 10/23/2023 1:45 PM CDT Appointment Department of Radiation Oncology in [place], [place] [address] [place] [phone] Elsie Dewey M.D. [address] [place] [address] 10/24/2023 1:45 PM CDT Appointment Department of Radiation Oncology in [place], [place] [address] [place] [phone] Elsie Dewey M.D. [address] [place] [address] 10/25/2023 1:45 PM CDT Appointment Department of Radiation Oncology in [address] [address] Elsie Dewey M.D. [address] [place] [phone] 10/28/2023 1:45 PM CDT Appointment Department of Radiation Oncology in [address] [address] Elsie Dewey M.D. [address] [place] [address] 10/29/2023 1:45 PM CDT Appointment Department of Radiation Oncology in [address] [address] Elsie Dewey M.D. [address] [place] [address] 10/29/2023 2:00 PM CDT Appointment Department of Radiation Oncology in [address] [address] Elsie Dewey M.D. [address] [place] [address] 10/30/2023 1:45 PM CDT Appointment Department of Radiation Oncology in [place], [place] [address] [place] [address] Elsie Dewey M.D. [address] [place] [address] 10/31/2023 1:45 PM CDT Appointment Department of Radiation Oncology in [place], [place] [address] [place] [address] Elsie Dewey M.D. [address] [place] [address] 11/01/2023 1:45 PM CDT Appointment Department of Radiation Oncology in [place], [place] [address] [place] [address] Elsie Dewey M.D. [address] [place] [address] Procedures Procedure Name Priority Date/Time Associated Diagnosis [...] OUTSIDE NM PET Routine 08/15/2023 12:05 PM SENIOR QC TECHNICIAN from Last 3 Months Results * Initial Rad Onc Treatment Planning CT Simulation (09/11/2023 1:00 PM CDT) Narrative REJI SANDOVAL - 09/11/2023 1:00 PM CDT Ese Castaneda, RTT ? 09/11/2023 ??1:10 PM Initial Rad Onc Treatment Planning CT Simulation Performed by: Elsie Dewey M.D. Authorized by: Elsie Dewey M.D. ?? Elsie Dewey M.D. RADIATION ONCOLOG Y ORDERABLES Performing Organization Address City/[facility]/ZIP Co de Phone Number REJI SANDOVAL na * MR head/brain wo/w con-Outside MR Neuro (09/06/2023 2:00 PM CDT) Narrative IIMS - 09/09/2023 2:16 PM CDT This order has been created and auto-finalized to support the import of outside images. If available, original interpretation can be found on the Media Tab in Chart Review, in Document Viewer, or as an image in [employer]. If a re-interpretation or overread is required please follow defined workflow. ?? Provider Not In System IMG MRI PROCEDURE S Performing Organization Address City/[facility] Co de Phone Number MARISSA NA * (ABNORMAL) SPSMA Result (09/05/2023 12:02 [...] 12:02 PM CDT 09/05/2023 12:21 PM CDT Agustina Tejeda APRNN.P., D.N.P. L AB BLOOD ADD-ON Performing Organization Address City/[facility]/ZIP Co de Phone Number [facility] [address] DHPM [facility] [address] [place] [address] * (ABNORMAL) Iron and Total Iron-Binding Capacity [...] Tejeda APRN.N.P., D.N.P. L AB BLOOD ADD-ON [facility] [address] DTL [facility] [address] [place] [address] * Folate (09/05/2023 12:02 PM CDT) [facility] Folate, S >20.0 >=4.0 mcg/L 09/05/2023 1: 21 PM CDT DT Blood (Blood, Venous) 09/05/2023 12:02 PM CDT 09/05/2023 12:31 PM CDT Agustina Tejeda APRNN.P., D.N.P. L AB BLOOD ADD-ON Performing Organization Address City/[facility]/ZIP Co de Phone Number [facility] [address] [place] [address] * Ferritin (09/05/2023 12:02 PM CDT) [facility] Ferritin, S 14 11 - 328 mcg/L 09/05/2023 1:04 PM CDT DT Blood (Blood, Venous) 09/05/2023 12:02 PM CDT 09/05/2023 12:31 PM CDT Sylvia Tejeda APRN.N.P., D.N.P. L AB BLOOD ADD-ON Performing Organization Address City/[facility] Co de Phone Number [facility] [address] [place] [address], [facility] 200 [place] [address] * (ABNORMAL) Vitamin B12 Assay (09/05/2023 12:02 PM CDT) [facility] Vitamin B12 Assay, S 1127(H) 180 - 914 ng/L 09/05/2023 1:22 PM CDT DT Comment: ----ADDITIONAL INFORMATION---- In patients being evaluated [...] 12:02 PM CDT 09/05/2023 12:31 PM CDT Agustina Tejeda APRNNGavin, JeanethPJessica L AB BLOOD ADD-ON Performing Organization Address City/[facility]/ZIP Co de Phone Number [facility] [address] [place] [address], [facility] DTL [facility] [address] [place] [address] * FL Fluoro Less Than 1 Hour (09/05/2023 10:18 AM CDT) Narrative [address] - 09/05/2023 10:19 AM CDT This exam does not require a radiologist review or interpretation. Please refer to the patient's medical record on this date for clinical details. Phil Abreu M.D. IMG FLUOROSCOPY PRO CEDURES Performing Organization Address City/[facility] Co de Phone Number [address] * (ABNORMAL) Cytology [...] ry studies (cone 22C3, [employer] [place], [place], [place]; using a proprietary detection system (D1): [...] reagent. Its performance characteristics were determined by [facility] in a manner consistent with CLIA requirements. This test has not been cleared or approved by the U.S. Food and Drug Administration. Test results for (IHC or SARA) testing are valid for specimens fixed between 6 and 72 hours. ??Delay to fixation, under fixation or over fixation fall outside of guidelines and may affect these results. Genetic testing for [facility] Solid Tumor Panel (MCSTP) will be performed [...] diagnosis. Immunohistochemica l stains were performed at [facility] (block A1). KRT7, Napsin A, TTF1(SPT24), p40.(A) 09/12/2023 8:24 AM CDT DTL Aspirate (Lung, Right Upper Lobe) 09/05/2023 8:10 AM CDT Tissue (Lung, Right Upper Lobe) 09/05/2023 9:11 AM CDT Aspirate (Lymph Node) 09/05/2023 9:38 AM CDT Aspirate (Lymph Node) 09/05/2023 9:43 AM CDT Phil Abreu M.D. LAB SURG PATH ORDER MAGDALENO [facility] [address] [place], [place] [address] DT 200 [facility] 200 [place] [address] * LDA ANE ENDOTRACHEAL AIRWAY (09/05/2023 7:54 [...] ETT location: oral VL device: glide scope [place] scope blade size: 3 Tube size: 8 [...] System IMG NON RAD IMAGI NG PROCEDURES IIMS NA * ECG 12 Lead (09/04/2023 12:32 PM CDT) Ventricular Rate ECG/Min 70 BPM MUSE DC Interval 168 ms MUSE QRSD Interval 74 ms MUSE QT Interval 408 ms MUSE QTC Interval 440 ms MUSE P [place] 81 degrees MUSE R [place] 27 degrees MUSE T Wave [place] 49 degrees MUSE 09/04/2023 12:3 2 PM [...] change was found Reviewed by MATT Zuñiga Agustina Tejeda APRNNGavin, D.N.P. E CG ORDERABLES Performing Organization Address [facility] de Phone Number [place] NA * Prothrombin Time (PT) (09/04/2023 12:11 PM CDT) Prothrombin Time, P 11.8 9.4 - 12.5 sec 09/04/2023 1:14 PM CDT DTL INR 1.1 0.9 - 1.1 09/04/2023 1:14 PM CDT DTL Comment: ----ADDITIONAL INFORMATION---- Standard intensity warfarin therapeutic range: 2.0 to 3.0 ?? High intensity warfarin therapeutic range: 2.5 to 3.5 Blood (Blood, Venous) 09/04/2023 12:11 PM CDT 09/04/2023 12:36 PM CDT Sylvia Tejeda APRN.N.P., D.N.P. L AB BLOOD ADD-ON Performing Organization Address City/State/[facility] Co de Phone Number [facility] [address] [place] [address], [facility] DTL [facility] [address] [place] [address] * (ABNORMAL) CBC with Differential, Blood (09/04/2023 12:11 PM CDT) Hemoglobin 9.5(L) 11.6 - 15.0 g/dL 09/04/2023 [...] 09/04/2023 12:36 PM CDT Nilo Pickett APRN, Sylvia.N.PJessica, JeanethPJessica L AB BLOOD ADD-ON [facility] [address] [place] [address], [place] DTL [facility] [address] [place] [address] [facility] [address] [place] [address] * (ABNORMAL) Comprehensive Metabolic Panel (09/04/2023 12:11 PM CDT) [facility] Potassium, S 4.4 3.6 - 5.2 mmol/L [...] 12:11 PM CDT 09/04/2023 1:07 PM CDT Nilo Pickett APRN, C.N.P., D.N.P. L AB BLOOD ADD-ON [facility] [address] [place] [address], [place] DTL [facility] [address] [place] [address] * CT Chest without IV Contrast (09/04/2023 [...] soft tissue nodule at the left apex (). Scattered areas of diffuse mild and moderate [...] cannot exclude multifocal bronchogenic carcinoma. Nilo Pickett APRN C.N.P., D.N.P. I MG CT PROCEDURES * PET skull to mid thigh-Outside NM Pet (08/15/2023 12:05 PM SENIOR QC TECHNICIAN) 08/15/2023 12:0 5 PM SENIOR QC TECHNICIAN Narrative IIMS - 08/15/2023 1:19 PM SENIOR QC TECHNICIAN This order has been created and auto-finalized [...] Advance Directives For more information, please contact: [phone] Documents on File Type Date Recorded Patient Observatory Director Expl anation Advance Directives 09/20/2023 6:06 PM SUSANNA LUCERO VALIDATION Advance Directives 01/12/2013 12:00 AM Leg acy document. See document viewer.
--- OUTSIDE RECORDS SUMMARY | 2023-09-23 07:06 | XMS_ITS ---
Author Name Unknown Organization [facility] Address [address] [place] [address] Care Team Providers Care Bundles Hanger Name Role Phone Unavailable Unavailable Unavailable Surgery Details Not on file Complications Check Surgery Details section. Procedure Estimated Blood Loss Check Surgery Details section. Procedure Findings Check Surgery Details section. Procedure Specimens Taken Check Surgery Details section.
--- OUTSIDE RECORDS SUMMARY | 2023-09-23 07:07 | XMS_ITS | Encounter Summary ---
Author Name Unknown Organization [facility] Address [address] [place] [address] Care Team Providers Care Property Underwriter Name Role Phone Unavailable Primary Care Provider Unavailabl e Encounter Details Date Type Department Care Team (Latest Contact Info) Description 09/05/2023 5:44 AM CDT - 09/05/2023 11:57 AM CDT Hospital Encounter [facility] OR [address] [place] [address] Phil Abreu M.D. [address] [place] [address] Malignant Neoplasm Of Lung Left (HCC); Nodules Pulmonary Multiple; Lymphadenopathy Mediastinum; Abnormal Positron Emission Tomography Scan Discharge Disposition: Home or Self Care Social History Tobacco Use Types Packs/Day Years [...] declined 10/31/2022 How often do you attend sabianist or zoroastrian serv ices? Never 10/31/2022 Do you belong to any clubs o r organizations such as sabianist groups, unions, fraternal or athletic groups, or [...] and heating? Not hard at all 10/31/2022 [facility] - Occupational Stress [...] Sign Reading Time Taken Comments Blood Pressure 136/76 09/05/2023 11:40 AM CDT Pulse 73 09/05/2023 11:40 AM CDT Temperature 36.7 ??C (98.1 ??F) 09/05/2023 1 1:52 AM CDT Respiratory Rate 15 09/05/2023 11:1 5 AM CDT Oxygen Saturation 92% 09/05/2023 11: 40 AM CDT Inhaled Oxygen Concentration - - Weight 56.1 kg (123 lb 10.9 oz) 09/05/2023 6:11 AM CDT Height 157.5 cm (5' 2) 09/05/2023 6:11 AM CDT Body Mass Index 22.62 09/05/2023 6:11 AM CDT documented in this encounter Discharge Instructions * Discharge Instructions* Cass Orozco R.N. - 09/05/2023 10:32 AM CDT Care After Your Bronchoscopy: After the procedure After the procedure a member of your team will let you know when you can leave. Eating Your mouth and throat stay numb for one to two hours. Do not eat or drink while your mouth and throat are numb. This helps keep food and liquids from entering your airways and lungs. You may begin to eat and drink after your mouth and throat no longer feel numb and you are able to swallow, gag, and cough normally again. Start with sips of water. If you have no problems and you can feel as you swallow, you may eat soft foods such as soup and applesauce. Add other foods when you feel comfortable. When you are able to swallow, warm water gargles and throat lozenges may help lessen discomfort. Medications Begin taking your medications as you have been told by your health care provider. Results Your primary health care provider usually discusses results with you the day after the procedure. Common Side Effects The following side effects are common: Coughing Sore throat for two to three days Small streaks of blood in your mucus, also called sputum Mild fever or rise in temperature Talk with your health care provider about these and any other side effects or risks. Some common pain relievers can affect blood thinning. Examples include aspirin, aspirin-containing products, ibuprofen products such as Advil??? and Motrin???, and naproxen such as Aleve??? and Naprosyn???. Talk with your health care provider about what you can take for pain. When to seek medical help A mild rise in temperature or a mild fever is common after your procedure. However, if your temperature continues to be higher than normal after you take the pain reliever recommended by your health care provider, call and ask to speak with your health care provider. When to call 911 Call 911 or your local emergency response telephone number, or have someone take you to an emergency department if you have: New or different chest pain. New or different breathing difficulty. Repeated coughing up of ?? cup or more of blood, or coughing up increasing amounts of blood. * Attachments The following attachments cannot be sent through Care Everywhere. * Instructions After Sedation or Anesthesia for Adults (Greek) documented in this encounter Medications at Time [...] 05/28/2022 09/13/2023 documented as of this encounter OR Notes * Op Note - Phil Abreu M.D. - 09/05/2023 7:59 AM CDT Pre-op Diagnosis Malignant Neoplasm Of Lung Left (HCC),Nodules Pulmonary Multiple,Lymphadenopathy Mediastinum,Abnormal Positron Emission Tomography Scan Post-op Diagnosis Malignant Neoplasm Of Lung Left (HCC),Nodules Pulmonary Multiple,Lymphadenopathy Mediastinum,Abnormal Positron Emission Tomography Scan Findings As expected. Complications Operative Note Narrative Following a procedural pause for patient identification she was intubated after rapid sequence induction under anesthesia guidance. A cuffed endotracheal tube was placed. Inspection with the P1 90 thereafter showed a small amount of thick ropy secretions but inspection was otherwise unremarkable. Robot planning had been achieved the night before. The robot was brought into position docked and registration achieved. We then navigated to the lesion. This was in the posterior branch of the apical segment and more than 180??. We could see the lesion under fluoroscopy. The radial probe signal was eccentric in our initial couple spins showed us to be just anterior to the lesion. We had trouble getting the catheter to point enough in a posterior direction which I believe was due to the more [id number] degree position and the size of the bronchus. A 23 gauge needle was placed and appeared to be on the edge within the lesion however several passes were nondiagnostic. We eventually switched to the many cryoprobe when we had a much better radial signal though the samples remained diagnostic. We did a total of 4 Cios spins and never achieved the center of the lesion, but did appear within the edge. The robot was then undocked and we then inspected with the P1 90. There was minimal amount of bleeding that had stopped and was easily removed with suctioning. We then switched to the linear EBUSscope. We did not find any evaluable nodes in 4 L. In station 7 we sampled a 6 mm node. In station 4R adjacent to the azygous we identified the 6 mm node that was hot on the PET scan. This was diagnostic. A total of 8 specimens were obtained from the node with support for adequacy on several slidesfor mutation. Five slides were made in 3 passes were placed directly into the container for cell block analysis. Phil Abreu M.D. documented in this encounter Plan of Treatment Upcoming Encounters Date Type Department Care Team (Late st Contact Info) Description 09/23/2023 2:00 PM CDT Appointment Department of Radiation Oncology in [address] [phone] Elsie Dewey M.D. [address] [place] [phone] 09/24/2023 9:00 AM CDT Appointment Department of Radiation Oncology in [address] [phone] Elsie Dewey M.D. [address] [place] [phone] 09/24/2023 9:30 AM CDT Appointment Department of Radiation Oncology in [address] [address] Elsie Dewey M.D. [address] [place] [phone] 09/25/2023 1:00 PM CDT Appointment Department of Radiation Oncology in [address] [address] Elsie Dewey M.D. [address] [place] [phone] 09/26/2023 1:00 PM CDT Appointment Department of Radiation Oncology in [address] [address] Elsie Dewey M.D. [address] [place] [phone] 09/26/2023 1:15 PM CDT Appointment Department of Radiation Oncology in [address] [place] [address] Elsie Dewey M.D. [address] [place] [phone] Kirsten Bella R.N. [address] [place] [phone] 09/27/2023 1:00 PM CDT Appointment Department of Radiation Oncology in [address] [address] Elsie Dewey M.D. [address] [place] [phone] 09/30/2023 1:00 PM CDT Appointment Department of Radiation Oncology in [address] [address] Elsie Dewey M.D. [address] [place] [phone] 10/01/2023 1:45 PM CDT Appointment Department of Radiation Oncology in [address] [address] Elsie Dewey M.D. [address] [place] [phone] 10/01/2023 2:00 PM CDT Appointment Department of Radiation Oncology in [address] [address] Elsie Dewey M.D. [address] [place] [phone] 10/02/2023 1:00 PM CDT Appointment Department of Radiation Oncology in [address] [address] Elsie Dewey M.D. [address] [place] [phone] 10/03/2023 1:45 PM CDT Appointment Department of Radiation Oncology in [place], [place] [address] [place] [address] Elsie Dewey M.D. [address] [place] [phone] 10/04/2023 1:45 PM CDT Appointment Department of Radiation Oncology in [place], [place] [address] [place] [phone] Elsie Dewey M.D. [address] [place] [phone] 10/07/2023 1:45 PM CDT Appointment Department of Radiation Oncology in [place], [place] [address] [place] [phone] Elsie Dewey M.D. [address] [place] [phone] 10/08/2023 1:45 PM CDT Appointment Department of Radiation Oncology in [place], [place] [address] [place] [phone] Elsie Dewey M.D. [address] [place] [phone] 10/08/2023 2:00 PM CDT Appointment Department of Radiation Oncology in [place], [place] [address] [place] [address] Elsie Dewey M.D. [address] [place] [phone] 10/09/2023 1:45 PM CDT Appointment Department of Radiation Oncology in [place], [place] [address] [place] [phone] Elsie Dewey M.D. [address] [place] [phone] 10/10/2023 1:45 PM CDT Appointment Department of Radiation Oncology in [place], [place] [address] [place] [phone] Elsie Dewey M.D. [address] [place] [phone] 10/11/2023 1:45 PM CDT Appointment Department of Radiation Oncology in [address] [address] Elsie Dewey M.D. [address] [place] [phone] 10/14/2023 1:45 PM CDT Appointment Department of Radiation Oncology in [address] [address] Elsie Dewey M.D. [address] [place] [phone] 10/15/2023 1:45 PM CDT Appointment Department of Radiation Oncology in [address] [address] Elsie Dewey M.D. [address] [place] [phone] 10/15/2023 2:15 PM CDT Appointment Department of Radiation Oncology in [address] [address] Elsie Dewey M.D. [address] [place] [phone] 10/16/2023 1:45 PM CDT Appointment Department of Radiation Oncology in [place], [place] [address] [place] [phone] Elsie Dewey M.D. [address] [place] [phone] 10/17/2023 1:45 PM CDT Appointment Department of Radiation Oncology in [place], [place] [address] [place] [phone] Elsie Dewey M.D. [address] [place] [phone] 10/18/2023 1:45 PM CDT Appointment Department of Radiation Oncology in [place], [place] [address] [place] [phone] Elsie Dewey M.D. [address] [place] [phone] 10/21/2023 1:45 PM CDT Appointment Department of Radiation Oncology in [place], [place] [address] [place] [phone] Elsie Dewey M.D. [address] [place] [phone] 10/22/2023 1:45 PM CDT Appointment Department of Radiation Oncology in [place], [place] [address] [place] [phone] Elsie Dewey M.D. [address] [place] [phone] 10/22/2023 2:00 PM CDT Appointment Department of Radiation Oncology in [place], [place] [address] [place] [phone] Elsie Dewey M.D. [address] [place] [phone] 10/23/2023 1:45 PM CDT Appointment Department of Radiation Oncology in [address] [address] Elsie Dewey M.D. [address] [place] [phone] 10/24/2023 1:45 PM CDT Appointment Department of Radiation Oncology in [address] [address] Elsie Dewey M.D. [address] [place] [phone] 10/25/2023 1:45 PM CDT Appointment Department of Radiation Oncology in [address] [address] Elsie Dewey M.D. [address] [place] [phone] 10/28/2023 1:45 PM CDT Appointment Department of Radiation Oncology in [address] [address] Elsie Dewey M.D. [address] [place] [phone] 10/29/2023 1:45 PM CDT Appointment Department of Radiation Oncology in [address] [address] Elsie Dewey M.D. [address] [place] [phone] 10/29/2023 2:00 PM CDT Appointment Department of Radiation Oncology in [place], [place] [address] [place] [phone] Elsie Dewey M.D. [address] [place] [phone] 10/30/2023 1:45 PM CDT Appointment Department of Radiation Oncology in [place], [place] [address] [place] [phone] Elsie Dewey M.D. [address] [place] [phone] 10/31/2023 1:45 PM CDT Appointment Department of Radiation Oncology in [place], [place] [address] [place] [phone] Elsie Dewey M.D. [address] [place] [phone] 11/01/2023 1:45 PM CDT Appointment Department of Radiation Oncology in [place], [place] [address] [place] [phone] Elsie Dewey M.D. [address] [place] [phone] documented as of this encounter Procedures Procedure Name Priority Date/Time Associated Diagnosis Comments ADULT OXYGEN THERAPY Routine 09/05/2023 10:19 AM CDT FL FLUORO LESS THAN 1 HOUR RAD - Routine (most inpatients and all outpatients) 09/05/2023 10:18 AM CDT CYTOLOGY FINE NEEDLE ASPIRATION (INCLUDES CORE BIOPSIES Routine 09/05/2023 8:10 AM CDT Malignant Neoplasm Of Lung Left (HCC) Nodules Pulmonary Multiple Lymphadenopathy Mediastinum Abnormal Positron Emission Tomography Scan ROBOTIC-ASSISTED BRONCHOSCOPY 09/05/2023 7:08 AM CDT Malignant [...] Lymphadenopathy Mediastinum Abnormal Positron Emission Tomography Scan documented in this encounter Results * FL Fluoro Less Than 1 Hour (09/05/2023 10:18 AM CDT) Narrative 152 HOS LOS R[facility] - 09/05/2023 10:19 AM CDT This exam does not require a radiologist review or interpretation. Please refer to the patient's medical record on this date for clinical details. Phil Abreu M.D. IMMarcy FLUOROSCOPY PRO CEDURES 152 HOS LOS RST [...] ry studies (cone 22C3, [employer] [place], [place], [place]; using a proprietary detection system (D1): [...] reagent. Its performance characteristics were determined by [facility] in a manner consistent with CLIA requirements. This test has not been cleared or approved by the U.S. Food and Drug Administration. Test results for (IHC or SARA) testing are valid for specimens fixed between 6 and 72 hours. ??Delay to fixation, under fixation or over fixation fall outside of guidelines and may affect these results. Genetic testing for [facility] Solid Tumor Panel (MCSTP) will be [...] diagnosis. Immunohistochemica l stains were performed at [facility] (block A1). KRT7, Napsin A, TTF1(SPT24), p40.(A) 09/12/2023 8:24 AM CDT DTL Aspirate (Lung, Right Upper Lobe) 09/05/2023 8:10 AM CDT Tissue (Lung, Right Upper Lobe) 09/05/2023 9:11 AM CDT Aspirate (Lymph Node) 09/05/2023 9:38 AM CDT Aspirate (Lymph Node) 09/05/2023 9:43 AM CDT Phil Abreu M.D. LAB SURG PATH ORDER [facility] [address] [place] [address], [facility] [address] [place] [address] documented in this encounter Visit Diagnoses Diagnosis Malignant Neoplasm Of Lung Left (HCC) Nodules Pulmonary Multiple Lymphadenopathy Mediastinum Abnormal Positron Emission Tomography Scan documented in this encounter Administered Medications Inactive Administered Medications - up to 3 most recent administrations Medication Order MAR Action Action Date Dose Rate Site acetaminophen tablet 1,000 mg (TYLENOL) 1,000 mg, oral, Once, On Natali 09/05/23 at 0730, For 1 dose, Pre-Op Given 09/05/2023 7:20 AM CDT 1,000 mg Lactated Ringer's 20 mL/hr, intravenous, Continuous, Starting on Natali 09/05/23 at 0830, PACU & Post-Op Continued from OR 09/05/2023 10:24 AM CDT 20 mL/hr 20 mL/hr documented in this encounter Active and Recently Administered Medications Times are shown in CDT. Scheduled Medication Order 09/03/2023 09/04/2023 09/05/2023 acetaminophen tablet 1,000 mg (TYLENOL) (COMPLETED) 1,000 mg, oral, Once, On Natali 09/05/23 at 0730, For 1 dose, Pre-Op 0720 (Given - Provid er: Marbella Heard R.N.) Continuous Medication Order 09/03/2023 09/04/2023 09/05/2023 Lactated Ringer's 80 mL/hr, intravenous, Continuous, Starting on Natali 09/05/23 at 0730, Pre-Op 0730 (Due) Lactated Ringer's 20 mL/hr, intravenous, Continuous, Starting on Natali 09/05/23 at 0830, PACU & Post-Op 1024 (Continued from OR - Provider: Cass Orozco R.N.) PRN Medication Order 09/03/2023 09/04/2023 09/05/2023 fentaNYL injection 25 mcg (SUBLIMAZE) 25 mcg, intravenous, Every 2 min PRN, moderate pain or score 4-6 of 10, severe pain or score 7-10 of 10, Starting on Natali 09/05/23 at 1019, PACU (only), Up to maximum total dose of 200 mcg documented in this encounter
--- OUTSIDE RECORDS SUMMARY | 2023-09-23 07:07 | XMS_ITS | Encounter Summary ---
Author Name Unknown Organization [facility] Address [address] [place] [address] Care Team Providers Care Detective Precinct Name Role Phone Unavailable Primary Care Provider Unavailabl e Encounter Details Date Type Department Care Team (Late st Contact Info) Description 09/04/2023 Orders Only Division of Pulmonary Medicine in [place], [place] [address] [place] [phone] Nilo Pickett APRN, C.N.P., D.N.P. [address] [place] [phone] Anemia Microcytic (Primary Dx) Social History Tobacco Use Types Packs/Day Years [...] declined 10/31/2022 How often do you attend tenriism or church serv ices? Never 10/31/2022 Do you belong to any clubs o r organizations such as tenriism groups, unions, fraternal or athletic groups, or [...] and heating? Not hard at all 10/31/2022 [facility] - Occupational [...] place to sleep or slept in a retirement (including now)? No 10/31/2022 Nutrition Answer Date [...] AM CDT documented as of this encounter Plan of Treatment Upcoming Encounters Date Type Department Care Team (Late st Contact Info) Description 09/23/2023 2:00 PM CDT Appointment Department of Radiation Oncology in [place], [place] [address] [place] [address] Elsie Dewey M.D. 200 [place] [address] 09/24/2023 9:00 AM CDT Appointment Department of Radiation Oncology in [place], [place] [address] [place] [phone] Elsie Dewey M.D. [address] [place] [phone] 09/24/2023 9:30 AM CDT Appointment Department of Radiation Oncology in [place], [place] [address] [place] [phone] Elsie Dewey M.D. [address] [place] [address] 09/25/2023 1:00 PM CDT Appointment Department of Radiation Oncology in [address] [address] Elsie Dewey M.D. [address] [place] [address] 09/26/2023 1:00 PM CDT Appointment Department of Radiation Oncology in [address] [address] Elsie Dewey M.D. [address] [place] [address] 09/26/2023 1:15 PM CDT Appointment Department of Radiation Oncology in [address] [address] Elsie Dewey M.D. [address] [place] [phone] Kirsten Bella R.N. [address] [place] [address] 09/27/2023 1:00 PM CDT Appointment Department of Radiation Oncology in [place], [place] [address] [place] [phone] Elsie Dewey M.D. [address] [place] [address] 09/30/2023 1:00 PM CDT Appointment Department of Radiation Oncology in [address] [address] Elsie Dewey M.D. [address] [place] [address] 10/01/2023 1:45 PM CDT Appointment Department of Radiation Oncology in [address] [address] Elsie Dewey M.D. [address] [place] [address] 10/01/2023 2:00 PM CDT Appointment Department of Radiation Oncology in [address] [address] Elsie Dewey M.D. [address] [place] [phone] 10/02/2023 1:00 PM CDT Appointment Department of Radiation Oncology in [address] [address] Elsie Dewey M.D. [address] [place] [address] 10/03/2023 1:45 PM CDT Appointment Department of Radiation Oncology in [address] [address] Elsie Dewey M.D. [address] [place] [address] 10/04/2023 1:45 PM CDT Appointment Department of Radiation Oncology in [place], [place] [address] [place] [address] Elsie Dewey M.D. [address] [place] [address] 10/07/2023 1:45 PM CDT Appointment Department of Radiation Oncology in [place], [place] [address] [place] [phone] Elsie Dewey M.D. [address] [place] [address] 10/08/2023 1:45 PM CDT Appointment Department of Radiation Oncology in [place], [place] [address] [place] [address] Elsie Dewey M.D. [address] [place] [address] 10/08/2023 2:00 PM CDT Appointment Department of Radiation Oncology in [place], [place] [address] [place] [address] Elsie Dewey M.D. [address] [place] [address] 10/09/2023 1:45 PM CDT Appointment Department of Radiation Oncology in [place], [place] [address] [place] [phone] Elsie Dewey M.D. [address] [place] [address] 10/10/2023 1:45 PM CDT Appointment Department of Radiation Oncology in [place], [place] [address] [place] [phone] Elsie Dewey M.D. [address] [place] [address] 10/11/2023 1:45 PM CDT Appointment Department of Radiation Oncology in [place], [place] [address] [place] [phone] Elsie Dewey M.D. [address] [place] [address] 10/14/2023 1:45 PM CDT Appointment Department of Radiation Oncology in [address] [address] Elsie Dewey M.D. [address] [place] [address] 10/15/2023 1:45 PM CDT Appointment Department of Radiation Oncology in [place], [place] [address] [place] [phone] Elsie Dewey M.D. [address] [place] [address] 10/15/2023 2:15 PM CDT Appointment Department of Radiation Oncology in [place], [place] [address] [place] [address] Elsie Dewey M.D. [address] [place] [address] 10/16/2023 1:45 PM CDT Appointment Department of Radiation Oncology in [address] [address] Elsie Dewey M.D. [address] [place] [address] 10/17/2023 1:45 PM CDT Appointment Department of Radiation Oncology in [place], [place] [address] [place] [phone] Elsie Dewey M.D. [address] [place] [address] 10/18/2023 1:45 PM CDT Appointment Department of Radiation Oncology in [address] [address] Elsie Dewey M.D. [address] [place] [address] 10/21/2023 1:45 PM CDT Appointment Department of Radiation Oncology in [address] [address] Elsie Dewey M.D. 200 [place] [address] 10/22/2023 1:45 PM CDT Appointment Department of Radiation Oncology in [address] [address] Elsie Dewey M.D. [address] [place] [address] 10/22/2023 2:00 PM CDT Appointment Department of Radiation Oncology in [address] [address] Elsie Dewey M.D. [address] [place] [address] 10/23/2023 1:45 PM CDT Appointment Department of Radiation Oncology in [address] [address] Elsie Dewey M.D. [address] [place] [address] 10/24/2023 1:45 PM CDT Appointment Department of Radiation Oncology in [place], [place] [address] [place] [address] Elsie Dewey M.D. 200 [place] [address] 10/25/2023 1:45 PM CDT Appointment Department of Radiation Oncology in [place], [place] [address] [place] [address] Elsie Dewey M.D. 200 [place] [address] 10/28/2023 1:45 PM CDT Appointment Department of Radiation Oncology in [address] [address] Elsie Dewey M.D. 200 [place] [address] 10/29/2023 1:45 PM CDT Appointment Department of Radiation Oncology in [place], [place] [address] [place] [address] Elsie Dewey M.D. 200 [place] [address] 10/29/2023 2:00 PM CDT Appointment Department of Radiation Oncology in [address] [address] Elsie Dewey M.D. 200 [place] [address] 10/30/2023 1:45 PM CDT Appointment Department of Radiation Oncology in [place], [place] [address] [place] [address] Elsie Dewey M.D. [address] [place] [address] 10/31/2023 1:45 PM CDT Appointment Department of Radiation Oncology in [place], [place] [address] [place] [address] Elsie Dewey M.D. [address] [place] [address] 11/01/2023 1:45 PM CDT Appointment Department of Radiation Oncology in [place], [place] [address] [place] [address] Elsie Dewey M.D. [address] [place] [address] documented as of this encounter Visit Diagnoses Diagnosis Anemia Microcytic- Primary documented in this encounter
--- OUTSIDE RECORDS SUMMARY | 2023-09-23 07:07 | XMS_ITS | Encounter Summary ---
Author Name Unknown Organization [facility] Address [address] [place] [address] Care Team Providers Care [employer] Name Role Phone Unavailable Primary Care Provider Unavailabl e Encounter Details Date Type Department Care Team (Late st Contact Info) Description 09/05/2023 6:35 AM CDT Ancillary Procedure Department of General Surgery Social History Tobacco Use Types Packs/Day Years [...] declined 10/31/2022 How often do you attend anabaptism or jain serv ices? Never 10/31/2022 Do you belong to any clubs o r organizations such as anabaptism groups, unions, fraternal or athletic groups, or [...] and heating? Not hard at all 10/31/2022 [facility] - Occupational Stress [...] place to sleep or slept in a senior care (including now)? No 10/31/2022 Nutrition Answer Date [...] CDT Appointment Department of Radiation Oncology in [place], [place] [address] [place] [address] Elsie Dewey M.D. 200 [place] [phone] 09/24/2023 9:00 AM CDT Appointment Department of Radiation Oncology in [place], [place] [address] [place] [address] Elsie Dewey M.D. 200 [place] [address] 09/24/2023 9:30 AM CDT Appointment Department of Radiation Oncology in [address] [address] Elsie Dewey M.D. [address] [place] [address] 09/25/2023 1:00 PM CDT Appointment Department of Radiation Oncology in [address] [address] Elsie Dewey M.D. [address] [place] [address] 09/26/2023 1:00 PM CDT Appointment Department of Radiation Oncology in [address] [address] Elsie Dewey M.D. [address] [place] [address] 09/26/2023 1:15 PM CDT Appointment Department of Radiation Oncology in [address] [address] Elsie Dewey M.D. [address] [place] [address] Kirsten Bella R.N. [address] [place] [address] 09/27/2023 1:00 PM CDT Appointment Department of Radiation Oncology in [address] [address] Elsie Dewey M.D. [address] [place] [address] 09/30/2023 1:00 PM CDT Appointment Department of Radiation Oncology in [place], [place] [address] [place] [address] Elsie Dewey M.D. [address] [place] [address] 10/01/2023 1:45 PM CDT Appointment Department of Radiation Oncology in [place], [place] [address] [place] [address] Elsie Dewey M.D. [address] [place] [address] 10/01/2023 2:00 PM CDT Appointment Department of Radiation Oncology in [address] [address] Elsie Dewey M.D. [address] [place] [address] 10/02/2023 1:00 PM CDT Appointment Department of Radiation Oncology in [place], [place] [address] [place] [phone] Elsie Dewey M.D. [address] [place] [address] 10/03/2023 1:45 PM CDT Appointment Department of Radiation Oncology in [address] [address] Elsie Dewey M.D. [address] [place] [address] 10/04/2023 1:45 PM CDT Appointment Department of Radiation Oncology in [address] [address] Elsie Dewey M.D. [address] [place] [address] 10/07/2023 1:45 PM CDT Appointment Department of Radiation Oncology in [place], [place] [address] [place] [address] Elsie Dewey M.D. [address] [place] [address] 10/08/2023 1:45 PM CDT Appointment Department of Radiation Oncology in [place], [place] [address] [place] [phone] Elsie Dewey M.D. [address] [place] [address] 10/08/2023 2:00 PM CDT Appointment Department of Radiation Oncology in [address] [address] Elsie Dewey M.D. [address] [place] [address] 10/09/2023 1:45 PM CDT Appointment Department of Radiation Oncology in [place], [place] [address] [place] [address] Elsie Dewey M.D. [address] [place] [address] 10/10/2023 1:45 PM CDT Appointment Department of Radiation Oncology in [place], [place] [address] [place] [address] Elsie Dewey M.D. [address] [place] [address] 10/11/2023 1:45 PM CDT Appointment Department of Radiation Oncology in [place], [place] [address] [place] [phone] Elsie Dewey M.D. [address] [place] [address] 10/14/2023 1:45 PM CDT Appointment Department of Radiation Oncology in [place], [place] [address] [place] [address] Elsie Dewey M.D. 200 [place] [address] 10/15/2023 1:45 PM CDT Appointment Department of Radiation Oncology in [address] [address] Elsie Dewey M.D. [address] [place] [address] 10/15/2023 2:15 PM CDT Appointment Department of Radiation Oncology in [address] [address] Elsie Dewey M.D. [address] [place] [address] 10/16/2023 1:45 PM CDT Appointment Department of Radiation Oncology in [address] [address] Elsie Dewey M.D. [address] [place] [address] 10/17/2023 1:45 PM CDT Appointment Department of Radiation Oncology in [address] [address] Elsie Dewey M.D. [address] [place] [address] 10/18/2023 1:45 PM CDT Appointment Department of Radiation Oncology in [place], [place] [address] [place] [address] Elsie Dewey M.D. 200 [place] [address] 10/21/2023 1:45 PM CDT Appointment Department of Radiation Oncology in [place], [place] [address] [place] [address] Elsie Dewey M.D. [address] [place] [address] 10/22/2023 1:45 PM CDT Appointment Department of Radiation Oncology in [place], [place] [address] [place] [address] Elsie Dewey M.D. [address] [place] [address] 10/22/2023 2:00 PM CDT Appointment Department of Radiation Oncology in [place], [place] [address] [place] [address] Elsie Dewey M.D. [address] [place] [address] 10/23/2023 1:45 PM CDT Appointment Department of Radiation Oncology in [place], [place] [address] [place] [address] Elsie Dewey M.D. [address] [place] [address] 10/24/2023 1:45 PM CDT Appointment Department of Radiation Oncology in [place], [place] [address] [place] [address] Elsie Dewey M.D. [address] [place] [address] 10/25/2023 1:45 PM CDT Appointment Department of Radiation Oncology in [place], [place] [address] [place] [address] Elsie Dewey M.D. [address] [place] [address] 10/28/2023 1:45 PM CDT Appointment Department of Radiation Oncology in [address] [address] Elsie Dewey M.D. [address] [place] [address] 10/29/2023 1:45 PM CDT Appointment Department of Radiation Oncology in [place], [place] [address] [place] [address] Elsie Dewey M.D. [address] [place] [address] 10/29/2023 2:00 PM CDT Appointment Department of Radiation Oncology in [place], [place] [address] [place] [address] Elsie Dewey M.D. [address] [place] [address] 10/30/2023 1:45 PM CDT Appointment Department of Radiation Oncology in [address] [address] Elsie Dewey M.D. [address] [place] [address] 10/31/2023 1:45 PM CDT Appointment Department of Radiation Oncology in [place], [place] [address] [place] [address] Elsie Dewey M.D. [address] [place] [address] 11/01/2023 1:45 PM CDT Appointment Department of Radiation Oncology in [place], [place] [address] [place] [address] Elsie Dewey M.D. 200 [place] [address] documented as of this encounter Procedures Procedure Name Priority Date/Time Associated Diagnosis Comments SURGERY IMAGE EXAM Routine 09/05/2023 6: 35 AM CDT documented in this encounter Results * Surgery Image Exam-Surgery Image Exam (09/05/2023 [...] NON RAD IMAGI NG PROCEDURES IIMS NA documented in this encounter Visit Diagnoses Not on filedocumented in this encounter
--- OUTSIDE RECORDS SUMMARY | 2023-09-23 07:07 | XMS_ITS | Encounter Summary ---
Author Name Unknown Organization [facility] Address [address] [place] [address] Care Team Providers Care Dry Talc Racker Name Role Phone Unavailable Primary Care Provider Unavailabl e Encounter Details Date Type Department Care Team (Late st Contact Info) Description 09/09/2023 Orders Only Division of Pulmonary Medicine in [place], [place] [address] [place] [phone] Nilo Pickett APRN, C.N.P., D.N.P. 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 Never 10/31/2022 Do you belong to any clubs o r organizations such as confucianism groups, unions, fraternal or athletic groups, or [...] and heating? Not hard at all 10/31/2022 [facility] of Occupat ional Health - Occupational Stress [...] CDT Appointment Department of Radiation Oncology in [place], [place] [address] [place] [phone] Elsie Dewey M.D. [address] [place] [address] 09/24/2023 9:00 AM CDT Appointment Department of Radiation Oncology in [address] [address] Elsie Dewey M.D. [address] [place] [phone] 09/24/2023 9:30 AM CDT Appointment Department of Radiation Oncology in [address] [address] Elsie Dewey M.D. [address] [place] [phone] 09/25/2023 1:00 PM CDT Appointment Department of Radiation Oncology in [address] [address] Elsie Dewey M.D. [address] [place] [phone] 09/26/2023 1:00 PM CDT Appointment Department of Radiation Oncology in [address] [address] Elsie Dewey M.D. [address] [place] [phone] 09/26/2023 1:15 PM CDT Appointment Department of Radiation Oncology in [address] [address] Elsie Dewey M.D. [address] [place] [phone] Kirsten Bella R.N. [address] [place] [phone] 09/27/2023 1:00 PM CDT Appointment Department of Radiation Oncology in [address] [address] Elsie Dewey M.D. [address] [place] [phone] 09/30/2023 1:00 PM CDT Appointment Department of Radiation Oncology in [address] [address] Elsie Dewey M.D. [address] [place] [phone] 10/01/2023 1:45 PM CDT Appointment Department of Radiation Oncology in [address] [address] Elsie Dewey M.D. [address] [place] [phone] 10/01/2023 2:00 PM CDT Appointment Department of Radiation Oncology in [address] [address] Elsie Dewey M.D. [address] [place] [phone] 10/02/2023 1:00 PM CDT Appointment Department of Radiation Oncology in [address] [address] Elsie Dewey M.D. [address] [place] [phone] 10/03/2023 1:45 PM CDT Appointment Department of Radiation Oncology in [address] [address] Elsie Dewey M.D. [address] [place] [address] 10/04/2023 1:45 PM CDT Appointment Department of Radiation Oncology in [place], [place] [address] [place] [address] Elsie Dewey M.D. [address] [place] [address] 10/07/2023 1:45 PM CDT Appointment Department of Radiation Oncology in [place], [place] [address] [place] [address] Elsie Dewey M.D. [address] [place] [phone] 10/08/2023 1:45 PM CDT Appointment Department of Radiation Oncology in [place], [place] [address] [place] [address] Elsie Dewey M.D. [address] [place] [phone] 10/08/2023 2:00 PM CDT Appointment Department of Radiation Oncology in [address] [address] Elsie Dewey M.D. [address] [place] [phone] 10/09/2023 1:45 PM CDT Appointment Department of Radiation Oncology in [address] [address] Elsie Dewey M.D. [address] [place] [phone] 10/10/2023 1:45 PM CDT Appointment Department of Radiation Oncology in [place], [place] [address] [place] [address] Elsie Dewey M.D. [address] [place] [phone] 10/11/2023 1:45 PM CDT Appointment Department of Radiation Oncology in [place], [place] [address] [place] [address] Elsie Dewey M.D. [address] [place] [phone] 10/14/2023 1:45 PM CDT Appointment Department of Radiation Oncology in [address] [address] Elsie Dewey M.D. [address] [place] [phone] 10/15/2023 1:45 PM CDT Appointment Department of Radiation Oncology in [place], [place] [address] [place] [address] Elsie Dewey M.D. [address] [place] [phone] 10/15/2023 2:15 PM CDT Appointment Department of Radiation Oncology in [place], [place] [address] [place] [phone] Elsie Dewey M.D. [address] [place] [phone] 10/16/2023 1:45 PM CDT Appointment Department of Radiation Oncology in [place], [place] [address] [place] [address] Elsie Dewey M.D. [address] [place] [phone] 10/17/2023 1:45 PM CDT Appointment Department of Radiation Oncology in [place], [place] [address] [place] [address] Elsie Dewey M.D. [address] [place] [address] 10/18/2023 1:45 PM CDT Appointment Department of Radiation Oncology in [place], [place] [address] [place] [address] Elsie Dewey M.D. [address] [place] [address] 10/21/2023 1:45 PM CDT Appointment Department of Radiation Oncology in [place], [place] [address] [place] [address] Elsie Dewey M.D. 200 [place] [address] 10/22/2023 1:45 PM CDT Appointment Department of Radiation Oncology in [address] [address] Elsie Dewey M.D. 200 [place] [address] 10/22/2023 2:00 PM CDT Appointment Department of Radiation Oncology in [address] [address] Elsie Dewey M.D. [address] [place] [address] 10/23/2023 1:45 PM CDT Appointment Department of Radiation Oncology in [address] [place] [address] Elsie Dewey M.D. [address] [place] [phone] 10/24/2023 1:45 PM CDT Appointment Department of Radiation Oncology in [place], [place] [address] [place] [phone] Elsie Dewey M.D. 200 [place] [address] 10/25/2023 1:45 PM CDT Appointment Department of Radiation Oncology in [address] [address] Elsie Dewey M.D. 200 [place] [address] 10/28/2023 1:45 PM CDT Appointment Department of Radiation Oncology in [place], [place] [address] [place] [address] Elsie Dewey M.D. [address] [place] [phone] 10/29/2023 1:45 PM CDT Appointment Department of Radiation Oncology in [place], [place] [address] [place] [address] Elsie Dewey M.D. 200 [place] [address] 10/29/2023 2:00 PM CDT Appointment Department of Radiation Oncology in [address] [address] Elsie Dewey M.D. 200 [place] [address] 10/30/2023 1:45 PM CDT Appointment Department of Radiation Oncology in [place], [place] [address] [place] [address] Elsie Dewey M.D. [address] [place] [address] 10/31/2023 1:45 PM CDT Appointment Department of Radiation Oncology in [place], [place] [address] [place] [address] Elsie Dewey M.D. [address] [place] [address] 11/01/2023 1:45 PM CDT Appointment Department of Radiation Oncology in [place], [place] [address] [place] [address] Elsie Dewey M.D. [address] [place] [address] documented as of this encounter Visit Diagnoses Diagnosis Malignant Neoplasm Of Lung Adenocarcinoma Right (HCC)- Primary documented in this encounter
--- OUTSIDE RECORDS SUMMARY | 2023-09-23 07:07 | XMS_ITS | Encounter Summary ---
Author Name Unknown Organization [facility] Address [address] [place] [address] Care Team Providers Care Shagger Name Role Phone Unavailable Primary Care Provider Unavailabl e Encounter Details Date Type Department Care Team (Late st Contact Info) Description 09/05/2023 7:15 AM CDT - 09/05/2023 10:05 AM CDT Surgery [facility] MAIN OR [address] [place] [phone] Phil Abreu M.D. [address] [place] [phone] BRONCHOSCOPY FLEXIBLE, ENDOBRONCHIAL ULTRASOUND-GUIDED TRANSBRONCHIAL NEEDLE ASPIRATION. Social History Tobacco Use Types Packs/Day Years [...] declined 10/31/2022 How often do you attend rastafari or baptism serv ices? Never 10/31/2022 Do you belong to any clubs o r organizations such as rastafari groups, unions, fraternal or athletic groups, or [...] and heating? Not hard at all 10/31/2022 [facility] of Occupat ional Health - Occupational Stress [...] place to sleep or slept in a alf (including now)? No 10/31/2022 Nutrition Answer Date [...] Sign Reading Time Taken Comments Blood Pressure 159/73 09/05/2023 6:11 AM CDT Pulse - - Temperature 36.1 ??C (97 ??F) 09/05/2023 6:11 AM CDT Respiratory Rate 16 09/05/2023 6:11 AM CDT Oxygen Saturation 95% 09/05/2023 6:11 AM CDT Inhaled Oxygen Concentration - - [...] Instructions After Sedation or Anesthesia for Adults (Somali) documented in this encounter Medications at Time [...] I believe was due to the more [id number] degree position and the size of the [...] CDT Appointment Department of Radiation Oncology in [address] [address] Elsie Dewey M.D. [address] [place] [phone] 09/24/2023 9:00 AM CDT Appointment Department of Radiation Oncology in [address] [address] Elsie Dewey M.D. [address] [place] [address] 09/24/2023 9:30 AM CDT Appointment Department of Radiation Oncology in [address] [address] Elsie Dewey M.D. [address] [place] [address] 09/25/2023 1:00 PM CDT Appointment Department of Radiation Oncology in [address] [address] Elsie Dewey M.D. [address] [place] [address] 09/26/2023 1:00 PM CDT Appointment Department of Radiation Oncology in [address] [address] Elsie Dewey M.D. [address] [place] [address] 09/26/2023 1:15 PM CDT Appointment Department of Radiation Oncology in [address] [address] Elsie Dewey M.D. [address] [place] [phone] Kirsten Bella R.N. [address] [place] [address] 09/27/2023 1:00 PM CDT Appointment Department of Radiation Oncology in [address] [address] Elsie Dewey M.D. [address] [place] [address] 09/30/2023 1:00 PM CDT Appointment Department of Radiation Oncology in [address] [address] Elsie Dewey M.D. [address] [place] [address] 10/01/2023 1:45 PM CDT Appointment Department of Radiation Oncology in [address] [address] Elsie Dewey M.D. [address] [place] [address] 10/01/2023 2:00 PM CDT Appointment Department of Radiation Oncology in [address] [address] Elsie Dewey M.D. [address] [place] [address] 10/02/2023 1:00 PM CDT Appointment Department of Radiation Oncology in [address] [address] Elsie Dewey M.D. [address] [place] [address] 10/03/2023 1:45 PM CDT Appointment Department of Radiation Oncology in [address] [address] Elsie Dewey M.D. [address] [place] [address] 10/04/2023 1:45 PM CDT Appointment Department of Radiation Oncology in [address] [address] Elsie Dewey M.D. [address] [place] [address] 10/07/2023 1:45 PM CDT Appointment Department of Radiation Oncology in [address] [address] Elsie Dewey M.D. [address] [place] [address] 10/08/2023 1:45 PM CDT Appointment Department of Radiation Oncology in [address] [address] Elsie Dewey M.D. [address] [place] [address] 10/08/2023 2:00 PM CDT Appointment Department of Radiation Oncology in [address] [address] Elsie Dewey M.D. [address] [place] [phone] 10/09/2023 1:45 PM CDT Appointment Department of Radiation Oncology in [address] [address] Elsie Dewey M.D. [address] [place] [address] 10/10/2023 1:45 PM CDT Appointment Department of Radiation Oncology in [place], [place] [address] [place] [address] Elsie Dewey M.D. [address] [place] [address] 10/11/2023 1:45 PM CDT Appointment Department of Radiation Oncology in [address] [address] Elsie Dewey M.D. [address] [place] [address] 10/14/2023 1:45 PM CDT Appointment Department of Radiation Oncology in [address] [address] Elsie Dewey M.D. [address] [place] [address] 10/15/2023 1:45 PM CDT Appointment Department of Radiation Oncology in [place], [place] [address] [place] [address] Elsie Dewey M.D. [address] [place] [address] 10/15/2023 2:15 PM CDT Appointment Department of Radiation Oncology in [address] [address] Elsie Dewey M.D. [address] [place] [address] 10/16/2023 1:45 PM CDT Appointment Department of Radiation Oncology in [place], [place] [address] [place] [address] Elsie Dewey M.D. [address] [place] [address] 10/17/2023 1:45 PM CDT Appointment Department of Radiation Oncology in [place], [place] [address] [place] [address] Elsie Dewey M.D. [address] [place] [address] 10/18/2023 1:45 PM CDT Appointment Department of Radiation Oncology in [address] [address] Elsie Dewey M.D. [address] [place] [address] 10/21/2023 1:45 PM CDT Appointment Department of Radiation Oncology in [address] [address] Elsie Dewey M.D. [address] [place] [address] 10/22/2023 1:45 PM CDT Appointment Department of Radiation Oncology in [address] [address] Elsie Dewey M.D. [address] [place] [address] 10/22/2023 2:00 PM CDT Appointment Department of Radiation Oncology in [address] [address] Elsie Dewey M.D. [address] [place] [address] 10/23/2023 1:45 PM CDT Appointment Department of Radiation Oncology in [place], [place] [address] [place] [address] Elsie Dewey M.D. [address] [place] [address] 10/24/2023 1:45 PM CDT Appointment Department of Radiation Oncology in [place], [place] [address] [place] [address] Elsie Dewey M.D. [address] [place] [address] 10/25/2023 1:45 PM CDT Appointment Department of Radiation Oncology in [place], [place] [address] [place] [address] Elsie Dewey M.D. [address] [place] [address] 10/28/2023 1:45 PM CDT Appointment Department of Radiation Oncology in [place], [place] [address] [place] [address] Elsie Dewey M.D. [address] [place] [address] 10/29/2023 1:45 PM CDT Appointment Department of Radiation Oncology in [place], [place] [address] [place] [address] Elsie Dewye M.D. [address] [place] [address] 10/29/2023 2:00 PM CDT Appointment Department of Radiation Oncology in [place], [place] [address] [place] [address] Elsie Dewey M.D. [address] [place] [address] 10/30/2023 1:45 PM CDT Appointment Department of Radiation Oncology in [place], [place] [address] [place] [address] Elsie Dewey M.D. [address] [place] [address] 10/31/2023 1:45 PM CDT Appointment Department of Radiation Oncology in [address] [address] Elsie Dewey M.D. [address] [place] [address] 11/01/2023 1:45 PM CDT Appointment Department of Radiation Oncology in [address] [address] Elsie Dewey M.D. [address] [place] [address] documented as of this encounter Procedures Procedure [...] ry studies (cone 22C3, [employer] [place], [place], [place]; using a proprietary detection system (D1): [...] reagent. Its performance characteristics were determined by [facility] in a manner consistent with CLIA requirements. This test has not been cleared or approved by the U.S. Food and Drug Administration. Test results for (IHC or SARA) testing are valid for specimens fixed between 6 and 72 hours. ??Delay to fixation, under fixation or over fixation fall outside of guidelines and may affect these results. Genetic testing for [facility] Solid Tumor Panel (MCSTP) will be [...] diagnosis. Immunohistochemica l stains were performed at [facility] (block A1). KRT7, Napsin A, TTF1(SPT24), p40.(A) 09/12/2023 8:24 AM CDT DTL Aspirate (Lung, Right Upper Lobe) 09/05/2023 8:10 AM CDT Tissue (Lung, Right Upper Lobe) 09/05/2023 9:11 AM CDT Aspirate (Lymph Node) 09/05/2023 9:38 AM CDT Aspirate (Lymph Node) 09/05/2023 9:43 AM CDT Phil Abreu M.D. LAB SURG PATH ORDER [facility] [address] [place] [address], [facility] DTL [address] [place] [address] documented in this encounter Visit Diagnoses Diagnosis Malignant Neoplasm Of Lung Left (HCC) Nodules Pulmonary Multiple Lymphadenopathy Mediastinum Abnormal Positron Emission Tomography Scan Malignant Neoplasm Of Lung Left (HCC) Nodules [...]
--- OUTSIDE RECORDS SUMMARY | 2023-09-23 07:07 | XMS_ITS | Encounter Summary ---
Author Name Unknown Organization [facility] Address [address] [place] [id number] Care Team Providers Care Family And Divorce Legal Assistant Name Role Phone Unavailable Primary Care Provider Unavailabl e Encounter Details Date Type Department Care Team (Late st Contact Info) Description 09/04/2023 Documentation Division of Pulmonary Medicine in [place], [place] [address] [place] [phone] Nilo Pickett APRN, C.N.P., D.N.P. [address] [place] [phone] Social History Tobacco Use Types Packs/Day Years [...] declined 10/31/2022 How often do you attend buddhism or hoahaoism serv ices? Never 10/31/2022 Do you belong to any clubs o r organizations such as buddhism groups, unions, fraternal or athletic groups, or [...] place to sleep or slept in a longterm (including now)? No 10/31/2022 Nutrition Answer Date [...] AM CDT documented as of this encounter Progress Notes * Nilo Pickett APRN, C.N.P., D.N.P. - 09/04/2023 1:35 PM CDT Chart Update Preprocedure laboratory studies do demonstrate a microcytic anemia. Will obtain a basic laboratory anemia workup. I have updated the referring provider, Dr. Dewey. documented in this encounter Plan of Treatment Upcoming Encounters Date Type Department Care Team (Late st Contact Info) Description 09/23/2023 2:00 PM CDT Appointment Department of Radiation Oncology in [address] [phone] Elsie Dewey M.D. [address] [place] [address] 09/24/2023 9:00 AM CDT Appointment Department of Radiation Oncology in [address] [phone] Elsie Dewey M.D. [address] [place] [address] 09/24/2023 9:30 AM CDT Appointment Department of Radiation Oncology in [address] [phone] Elsie Dewey M.D. [address] [place] [phone] 09/25/2023 1:00 PM CDT Appointment Department of Radiation Oncology in [address] [phone] Elsie Dewey M.D. [address] [place] [address] 09/26/2023 1:00 PM CDT Appointment Department of Radiation Oncology in [address] [address] Elsie Dewey M.D. [address] [place] [phone] 09/26/2023 1:15 PM CDT Appointment Department of Radiation Oncology in [address] [address] Elsie Dewey M.D. [address] [place] [phone] Kirsten Bella R.N. [address] [place] [phone] 09/27/2023 1:00 PM CDT Appointment Department of Radiation Oncology in [address] [address] Elsie Dewey M.D. [address] [place] [phone] 09/30/2023 1:00 PM CDT Appointment Department of Radiation Oncology in [address] [phone] Elsie Dewey M.D. [address] [place] [phone] 10/01/2023 1:45 PM CDT Appointment Department of Radiation Oncology in [address] [address] Elsie Dewey M.D. [address] [place] [phone] 10/01/2023 2:00 PM CDT Appointment Department of Radiation Oncology in [address] [phone] Elsie Dewey M.D. [address] [place] [phone] 10/02/2023 1:00 PM CDT Appointment Department of Radiation Oncology in [address] [address] Elsie Dewey M.D. [address] [place] [phone] 10/03/2023 1:45 PM CDT Appointment Department of Radiation Oncology in [place], [place] [address] [place] [phone] Elsie Dewey M.D. [address] [place] [phone] 10/04/2023 1:45 PM CDT Appointment Department of Radiation Oncology in [place], [place] [address] [place] [phone] Elsie Dewey M.D. [address] [place] [phone] 10/07/2023 1:45 PM CDT Appointment Department of Radiation Oncology in [address] [address] Elsie Dewey M.D. [address] [place] [phone] 10/08/2023 1:45 PM CDT Appointment Department of Radiation Oncology in [place], [place] [address] [place] [phone] Elsie Deewy M.D. [address] [place] [phone] 10/08/2023 2:00 PM CDT Appointment Department of Radiation Oncology in [address] [address] Elsie Dewey M.D. [address] [place] [phone] 10/09/2023 1:45 PM CDT Appointment Department of Radiation Oncology in [place], [place] [address] [place] [phone] Elsie Dewey M.D. [address] [place] [phone] 10/10/2023 1:45 PM CDT Appointment Department of Radiation Oncology in [address] [address] Elsie Dewey M.D. [address] [place] [phone] 10/11/2023 1:45 PM CDT Appointment Department of Radiation Oncology in [address] [address] Elsie Dewey M.D. [address] [place] [phone] 10/14/2023 1:45 PM CDT Appointment Department of Radiation Oncology in [address] [address] Elsie Dewey M.D. [address] [place] [phone] 10/15/2023 1:45 PM CDT Appointment Department of Radiation Oncology in [address] [address] Elsie Dewey M.D. [address] [place] [phone] 10/15/2023 2:15 PM CDT Appointment Department of Radiation Oncology in [address] [address] Elsie Dewey M.D. [address] [place] [phone] 10/16/2023 1:45 PM CDT Appointment Department of Radiation Oncology in [place], [place] [address] [place] [phone] Elsie Dewey M.D. [address] [place] [phone] 10/17/2023 1:45 PM CDT Appointment Department of Radiation Oncology in [place], [place] [address] [place] [phone] Elsie Dewey M.D. [address] [place] [phone] 10/18/2023 1:45 PM CDT Appointment Department of Radiation Oncology in [place], [place] [address] [place] [phone] Elsie Dewey M.D. [address] [place] [phone] 10/21/2023 1:45 PM CDT Appointment Department of Radiation Oncology in [place], [place] [address] [place] [address] Elsie Dewey M.D. [address] [place] [phone] 10/22/2023 1:45 PM CDT Appointment Department of Radiation Oncology in [place], [place] [address] [place] [address] Elsie Dewey M.D. [address] [place] [phone] 10/22/2023 2:00 PM CDT Appointment Department of Radiation Oncology in [place], [place] [address] [place] [phone] Elsie Dewey M.D. [address] [place] [phone] 10/23/2023 1:45 PM CDT Appointment Department of Radiation Oncology in [place], [place] [address] [place] [phone] Elsie Dewey M.D. [address] [place] [phone] 10/24/2023 1:45 PM CDT Appointment Department of Radiation Oncology in [address] [address] Elsie Dewey M.D. [address] [place] [phone] 10/25/2023 1:45 PM CDT Appointment Department of Radiation Oncology in [address] [address] Elsie Dewey M.D. [address] [place] [phone] 10/28/2023 1:45 PM CDT Appointment Department of Radiation Oncology in [address] [address] Elsie Dewey M.D. [address] [place] [phone] 10/29/2023 1:45 PM CDT Appointment Department of Radiation Oncology in [address] [address] Elsie Dewey M.D. [address] [place] [phone] 10/29/2023 2:00 PM CDT Appointment Department of Radiation Oncology in [place], [place] [address] [place] [phone] Elsie Dewey M.D. [address] [place] [phone] 10/30/2023 1:45 PM CDT Appointment Department of Radiation Oncology in [place], [place] [address] [place] [phone] Elsie Dewey M.D. [address] [place] [phone] 10/31/2023 1:45 PM CDT Appointment Department of Radiation Oncology in [place], [place] [address] [place] [phone] Elsie Dewey M.D. [address] [place] [phone] 11/01/2023 1:45 PM CDT Appointment Department of Radiation Oncology in [place], [place] [address] [place] [phone] Elsie Dewey M.D. [address] [place] [phone] documented as of this encounter Visit Diagnoses Not on filedocumented in this encounter
--- OUTSIDE RECORDS SUMMARY | 2023-09-23 07:07 | XMS_ITS | Encounter Summary ---
Author Name Unknown Organization [facility] Address [address] [place] [address] Care Team Providers Care Health Program Manager Name Role Phone Unavailable Primary Care Provider Unavailabl e Reason for Referral * Specialty Diagnoses / Procedures Referred By Cassac t Referred To Contact Albertina Stiles APRN, C.N.PJessica, D.N.PJessica [address] [place] [address] [facility] Region Referral ID Status Reason Start Date Expiration Date Visits Re quested Visits Authorized * Specialty Diagnoses / Procedures Referred By Contac t Referred To Contact Albertina Stiles APRN C.N.PJessica, D.N.P. [address] [place] [address] [facility] Region Referral ID Status Reason Start Date Expiration Date Visits Re quested Visits Authorized * Radiation Therapy (Routine) - Authorized Specialty Diagnoses / Procedures Referred By Contac t Referred To Contact Diagnoses Malignant Neoplasm Of Lung Right (HCC) Procedures Management Visit Elsie Dewey M.D. [address] [place] [address] [facility] Region Referral ID Status Reason Start Date Expiration Date V isits Requested Visits Authorized [id number] Authorized 09/09/2023 09/08/2024 10 10 * Radiation Therapy (Routine) - Authorized Specialty Diagnoses / Procedures Referred By Contac t Referred To Contact Diagnoses Malignant Neoplasm Of Lung Right (HCC) Procedures Prior Auth Rad Tx Elsie Dewey M.D. [address] [place] [address] [facility] Referral ID Status Reason Start Date Expiration Date V isits Requested Visits Authorized [id number] Authorized 09/09/2023 09/08/2024 1 1 * Radiation Therapy (Routine) - Closed Specialty Diagnoses / Procedures Referred By Contac t Referred To Contact Diagnoses Malignant Neoplasm Of Lung Right (HCC) Procedures Initial Rad Onc Treatment Planning CT Simulation Elsie Dewey M.D. [address] [place] [phone] [facility] Region Referral ID Status Reason Start Date Expiration Date Visits Re quested Visits Authorized [id number] Closed 09/09/2023 09/08/2024 1 1 * Outpatient (Routine) - Closed Specialty Diagnoses / Procedures Referred By Contac t Referred To Contact Radiation Oncology Danielle Glover P.A.-C., M.S. [address] [place] [phone] Elsie Dewey M.D. [address] [place] [phone] Referral ID Status Reason Start Date Expiration Date Visits Re quested Visits Authorized [id number] Closed 08/29/2023 02/27/2025 1 1 Scheduling Instructions MRI brain and bronchoscopy prior in [place] Reason for Visit * Outpatient (Routine) - Closed Specialty Diagnoses / Procedures Referred By Contfely t Referred To Contact Radiation Oncology Danielle Glover P.A.-C., M.S. [address] [place] [phone] Elsie Dewey M.D. [address] [place] [phone] Referral ID Status Reason Start Date Expiration Date Visits Re quested Visits Authorized [id number] Closed 08/29/2023 02/27/2025 1 1 Encounter Details Date Type Department Care Team (Latest Contact Info) Description 09/09/2023 2:53 PM CDT - 09/09/2023 4:42 PM CDT Hospital Encounter Department of Radiation Oncology in [place], [place] [address] [place] [address] Elsie Dewey M.D. [address] [place] [phone] Malignant Neoplasm Of Lung Left (HCC) (Primary Dx); Malignant Neoplasm Of Lung Right (HCC) Social [...] declined 10/31/2022 How often do you attend sikh or anabaptist serv ices? Never 10/31/2022 Do you belong to any clubs o r organizations such as sikh groups, unions, fraternal or athletic groups, or [...] and heating? Not hard at all 10/31/2022 [facility] [place] [facility] ional [facility] - Occupational Stress [...] 09/09/2023 3:26 PM CD T Respiratory Rate - - Oxygen Saturation - - Inhaled Oxygen Concentration - - Weight 57.8 kg (127 lb 6.8 oz) 09/09/2023 3:26 P M CDT Height - - Body Mass Index 23.31 09/05/2023 6:11 AM CDT documented in this [...] tablet TAKE 1.5 TABLETS BY MOUTH EVERY TU AND SAT; TAKE TWO TABLETS ALL OTHER [...] 05/28/2022 09/13/2023 documented as of this encounter Progress Notes * Elsie Dewey M.D. - 09/09/2023 3:30 PM CDT RADIATION ONCOLOGY FOLLOW-UP NOTE SUBJECTIVE REFERRAL SOURCE Established patient DIAGNOSIS 1. Multifocal lung cancer, progressing nodules 2. Medically inoperable lung cancer, s/p SBRT 2014 3. PET/CT avid mediastinal node and rapidly enlarging RUL lesion, s/p biopsy CHIEF COMPLAINT/REASON FOR VISIT Mrs. Anila Henderson is a 73 y.o. woman with history of a history of multifocal lung cancer and a previously treated MILC with SBRT in 2014 who now returns after undergoing bronchoscopy and EBUS for mediastinal avidity and a rapidly enlarging RUL lesion. She also underwent a brain MRI last Saturday at [facility]. She returns now to receive the results. She is accompanied by her and daughter today. Oncology History Malignant Neoplasm Of Lung Left (HCC) 09/2011 Other 1. September 2011: Mrs. Henderson was diagnosed with endocarditis and an embolic stroke for which she was placed on Coumadin. A CT of the chest completed at that time showed indeterminate pulmonary nodules. Most of these were ground-glass, although a left upper lobe nodule was solid. This left upper lobe nodule had been stable, however, over the previous three years. 2. June 25, 2012: PFTs showed an FEV1 of 1.6 L, or 49% of predicted, that clair to 1.45 L with bronchodilation, and her DLCO was 54% of predicted. 3. November 25, 2013: Left lower lobe nodule identified on scans measuring 3.7 mm. 4. November 2014: Followup scans continued to show the left lower lung nodule. 5. February 16, 2015: Increasing size of the left lower lobe nodule, now measuring 8 mm. 03/21/2015 - 03/23/2015 Radiation Therapy SBRT (5400 in three fractions) completed to the left lower lung nodule. 03/2015 Other 7. March 30, 2015: ETU evaluation for left-sided chest pain. CT of the chest negative for PE. 8. July 11, 2015: CT scan of the chest showed a decrease in the size of the left lower lobe pulmonary nodule treated with radiation. There were changes in this area consistent with the radiation. Ground-glass nodules present in the right lung appeared minimally increased. 9. January 19, 2016: CT of the chest showing changes at the site of the nodule in the left lower lobewhich was targeted with radiation therapy including increasing opacity and surrounding ground-glass. This could represent either post radiation fibrosis versus a disease progression. An additional ground-glass nodule in the lateral right lobe is slightly increased in size and density. Another ground-glass nodule in the posterior right lobe remains unchanged. 10. July 23, 2016: CT scan of the chest showing stable postradiation changes in the left lower lobe stable since scans in January. A 13-mm nodule in the right lower lobe posterior laterally has grown only slightly. Additional ground-glass and solid nodules are stable. No new nodules present. No lymphadenopathy. Adrenal glands are negative. 11. January 31, 2017, CT chest shows new and increasing nodules in the right apex and left base, indeterminate. This includes an irregular 15 x 9 mm nodular opacity in the left base abutting the hemidiaphragm. Increased in size as compared to prior scan. A new 5 millimeter solid nodule in the right upper lobe is noted. This could be a mucus plug. Additional small ground-glass nodules in both lungsare stable and unchanged including a 13 x 8 mm nodule in the right lower lobe and an 11 mm ground-glass nodule in the right lower lobe. 12. April 30, 2017, CT chest shows that the 15 x 8 mm nodular opacity in the left lower lobe abutting the diaphragm is unchanged in size as are the surrounding reticular opacities and micro nodularity. The nodular opacity in the right upper lobe has resolved and was likely a mucous plug. Radiation fibrosis in the left lower lobe at the site of the treated nodule is stable. Additional solid andsub solid nodules including the 2 ground-glass opacities in the right lower lobe are stable. A partially calcified solid nodule in the left apex is unchanged. 13. April 17, 2018, CT chest showed increased soft tissue density at the site of previous radiation fibrosis in the medial left lower lobe. Disease recurrence cannot be excluded. Stable solid and subsolid nodules, with the two right lower nodules likely in home sales representative of low-grade adenocarcinoma. 14. April 22, 2019, CT chest demonstrated continued increased soft tissue density at the site of previous radiation fibrosis in the medial left lower lobe. Two right lower lobe sub-solid nodules, one of which had increased in size, likely representing low-grade adenocarcinoma. Solid partially calcified irregular nodule in the left apex had increased in size, indeterminate. 15. October 26, 2019: CT chest demonstrated stable 1.5 x 3.7 cm mass in the left lower lobe. Interval decrease in the size of the 13 mm ground-glass nodule in the right lower lobe. The remaining pulmonary nodules were stable. 16. October 26, 2020: CT chest demonstrated a stable left lower lobe lesion. Stable additional smaller bilateral pulmonary nodules. 17. October 30, 2021: CT chest demonstrated a stable exam with stable few scattered lateral pulmonary nodular opacities and areas of scarring. Negative for new or progressive neoplasm. 18. November 03, 2021: CANARY analysis was performed on the dominant right lower lobe nodule and retrospectively on the same nodule back to 2017. The volume of the nodule had increased. The CANARY features had shifted from the good category to the indeterminate category, which corresponds to the increase in size and enlarging solid density components that had developed in the interval. The CANARY features suggest there may be a transition to more aggressive/invasive disease than on older exams. 19. November 01, 2022: CT chest without IV contrast demonstrated a stable ovoid nodular area with volumeloss in the left lower lobe, compatible with the site of the left lower lobe nodule that was treated with radiation. Increased cavitary changes in the inferior nodularity associated in the right upper lobe measuring approximately 2.1 x 1.8 cm. The increased nodularity measured approximately 10 x 8 mm. 2.1 x 1.5 cm semi solid irregular right lower lobe nodule showed some increased nodularity alongits inferior aspect measuring 7 mm. There was a 2.2 x 1.8 cm cystic area with surrounding ground-glass attenuation and slight reticulation in the right lower lobe laterally, unchanged. A small area of subsolid nodularity or reticulation in the left upper lobe medially appeared unchanged. Additionalsmaller nodular opacities bilaterally were unchanged, including a stable partially calcified left apical nodule. No thoracic adenopathy. 20. November 29, 2022: PFTs demonstrate and FEV1 of 1.08 L (54% of predicted); unable to perform a DLCO. 12/20/2022 Other Last f/u visit with Dr. Dewey. Patient elected to not get any additional imaging or follow-up unless clinically indicated by symptoms. [address] chest demonstrated a spiculated mass in the left upper lobe measuring 7.6 mm, unchanged. Malignant Neoplasm Of Lung Right (HCC) 06/20/2023 Other Patient being followed by her primary care provider after she elected not to pursue any additional CT imaging in December 2022. She started to notice back pain in early May 2023 in left mid back that was progressively worsening without any relief. Primary care provider obtained CT imaging for further evaluation [address] chest demonstrated a spiculated mass near the right hilum measuring 1.8 x 1.4 cm, increased in size. A spiculated mass in the right lower lobe measuring 2.2 x 1.4 cm and contains more soft tissue density compared to the prior exam. An ill-defined ground-glass opacity in the right lower lobe currently measures 1.2 x 2.7 cm and appears stable. These findings are concerning for metastatic disease. Consider PET-CT for further evaluation. Remainder of the exam is stable compared to the prior study. 07/30/2023 Tumor Board Her case was reviewed at daily lung tumor board. Recommendation was to consider PET/CT, biopsy and chemo, chemo/immunotherapy or radiation. 08/15/2023 Critical Imaging PET-CT demonstrated a nodule in the right upper lobe measuring 1.8 x 1.8 cm, SUV max 25.69. Spiculated opacity in the right lower lobe, SUV max 3.97, indeterminate. Right hilar lymph node measuring 1.2 x 1.0 cm, SUV max 21.69. Right lower paratracheal lymph node measuring 1.0 x 0.6 cm, SUV max 16.66. Bilateral adnexal cysts were present. No hypermetabolism or internal complexity was identified, but recommend nonemergent pelvic ultrasound for further evaluation, if/when clinically appropriate. 09/04/[address] Chest without IV contrast demonstrated continued interval increase in soft tissue component of a20 mm nodule in the medial right upper lobe which is FDG avid on recent PET/CT and concerning for malignancy. A new indeterminate 3-4 mm soft tissue nodule in the central right upper lobe. Stability of multiple variable sized irregular pulmonary nodules, although stable cannot exclude multifocal bronchogenic carcinoma 09/05/2023 Biopsy/Pathology EBUS demonstrated lesion was in the posterior branch of the apical segment and more than 180??. We could see the lesion under fluoroscopy. The radial probe signal was eccentric in our initial couple spins showed us to be just anterior to the lesion. We had trouble getting the catheter to point enough in a posterior direction which I believe was due to the more than 180 degree position and the size of the [...] lesion, but did appear within the edge. We then switched to the linear EBUS scope. We did not find any evaluable nodes in 4 L. In station 7 we sampled a 6 mm node. In station 4R adjacent to the azygous we identified the 6 mm node that was hot on the PET scan. This was diagnostic. A total of 8 specimens were obtained from the node with support for adequacy on several slides for mutation A. Lung, Right upper lobe, EBUS fine needle aspiration (smears/cell block): Atypical. Abnormal epithelial cells, favor reactive/degenerative etiology. Scanty cellularity. B. Lung, Right upper lobe, Biopsy Touch Prep (smears/tissue): Atypical. Scanty cellularity. Scattered atypical cells within alveolated lung parenchyma and bronchial tissue. The scarcity of atypical cells precludes a definitive diagnosis. C. Lymph node, Station 7, EBUS fine needle aspiration (smears/cell block): Negative for malignancy.Lymphocytes consistent with sampled lymph node. The cell block is noncontributory. D. Lymph node, Station 4, right, EBUS fine needle aspiration (smears/cell block): Positive for malignancy. Consistent with metastatic pulmonary adenocarcinoma. Note: Tumor cells are positive for TTF-1, Napsin A, and CK7, and negative for p40, supporting the above diagnosis. 09/06/2023 Critical Imaging Brain MRI results are pending. 09/23/2023 - Radiation Therapy Radiation Therapy Treatment Details (Noted on 09/09/2023) Site: Right Lung Technique: No technique specified Goal: Curative Planned Treatment Start Date: 09/23/2023 INTERVAL HISTORY: Since I last saw Mrs. Anila Henderson she reports that she tolerated the bronchoscopy well and she is back on her Coumadin. She has no new complaints. PATIENT REPORTED SYMPTOM SCREEN FATIGUE (Scale: 0 = no fatigue; 10 = worst fatigue you can imagine):2 PAIN (Scale: 0 = no pain; 10 = worst pain you can imagine): 0 OVERALL QUALITY OF LIFE (Scale: 0 = as bad as can be; 10 = as good as can be):8 OBJECTIVE There were no vitals taken for this visit. General: Mrs. Anila Henderson is a well-developed, well-nourished woman. she is seated in the examination room in no acute distress. ECO - asymptomatic. DIAGNOSTICS I have reviewed the available imaging, operative and pathology reports as described above and reviewed in the EMR. ASSESSMENT / PLAN #1 Stage IIIA non-small cell lung cancer (adenocarcinoma), cT1c N2 MX, await PD- L1 and NGS testing #2 Medically inoperable left lower lobe cancer, not biopsy proven, treated with SBRT in March 2015 #3 Multiple pulmonary nodules, suspicious for multiple synchronous early lung cancers I reviewed the above findings with Mrs. Henderson and her family. We reviewed her imaging together. Her MRI has not yet been finalized by [facility]. I have reviewed the imaging and see no obvious brain metastases, but await the final report. We had a discussion regarding her treatment options assuming that this scan is negative. We also discussed that we are awaiting her PDL1 and NGS testing on her recent biopsy. We discussed her treatment alternatives. We discussed curative vs palliative treatments. We discussed curative radiation and chemotherapy followed by Durvalumab. If she is not a chemo/immunotherapy candidate we discussed hypofractionated radiation therapy with 60 Gy in 15 fractions. I shared with them that we would continue to watch the other multifocal lung cancers for now as they are very slowly changing. We also discussed that sometimes there isn't enough tissue for the PD-L1 or NGS testing and that this likely wouldn't change my recommendations for now. I don't think I would put her through another bronchoscopy for more tissue if this were the case. I also shared with them that she does have smallvolume disease, so I see no indications for neoadjuvant therapy. Also, I am pleased that I will be a ble to stay off of her esophagus with my radiation plan as that will make it much more tolerable for her. We discussed the rationale, risks, side effects and goals of radiation therapy. We discussed the acute as well as parts counterman risks, including, but not limited to fatigue, esophagitis (I do not anticipate being on her esophagus), rib fracture, chest wall pain, radiation pneumonitis (10-15% risk with a 1% mortality), and cardiac risks. They understood and their questions were answered. He wished to proceed with treatment. We tentatively plan on delivering 6000 cGy in 30 fractions with chemotherapystarting after she has been evaluated by Medical Oncology. She has an appointment to see them on September 25, 2023. I will see if I can move that sooner. They also know that I am away this coming Saturday and all next week. I will sign out her case to my colleague Dr. Cardona to make final decisions on 15 vs 30 treatments if this happens when I am away. My thanks to Rosalia and Stephen for the opportunity to participate in this patient's care. Mrs. Anila Henderson knows to contact us at any point should any questions or concerns arise. EDUCATION: Ready to learn, no apparent learning barriers were identified; learning preferences include listening. Explained diagnosis and treatment plan; patient expressed understanding of the content. CONSENT: Discussed the risks, benefits, alternatives, and the necessity of other members of the healthcare team participating in the procedure. All questions answered and consent given. I personally spent 45 minutes in care of the patient today. Time includes both non face to face andface to face patient care. Signed by: Elsie Dewey M.D. 09/09/2023 4:39 PM CDT Radiation Oncology [facility] [address] [place] [phone] documented in this encounter Plan of Treatment Upcoming Encounters Date Type Department Care Team (Late st Contact Info) Description 09/23/2023 2:00 PM CDT Appointment Department of Radiation Oncology in [address] [phone] Elsie Dewey M.D. [address] [place] [phone] 09/24/2023 9:00 AM CDT Appointment Department of Radiation Oncology in [address] [phone] Elsie Dewey M.D. [address] [place] [phone] 09/24/2023 9:30 AM CDT Appointment Department of Radiation Oncology in [address] [place] [address] Elsie Dewey M.D. [address] [place] [phone] 09/25/2023 1:00 PM CDT Appointment Department of Radiation Oncology in [address] [phone] Elsie Dewey M.D. [address] [place] [phone] 09/26/2023 1:00 PM CDT Appointment Department of Radiation Oncology in [address] [phone] Elsie Dewey M.D. [address] [place] [phone] 09/26/2023 1:15 PM CDT Appointment Department of Radiation Oncology in [address] [phone] Elsie Dewey M.D. [address] [place] [phone] Kirsten Bella R.N. [address] [place] [phone] 09/27/2023 1:00 PM CDT Appointment Department of Radiation Oncology in [address] [phone] Elsie Dewey M.D. [address] [place] [phone] 09/30/2023 1:00 PM CDT Appointment Department of Radiation Oncology in [address] [phone] Elsie Dewey M.D. [address] [place] [phone] 10/01/2023 1:45 PM CDT Appointment Department of Radiation Oncology in [place], [place] [address] [place] [phone] Elsie Dewey M.D. [address] [place] [phone] 10/01/2023 2:00 PM CDT Appointment Department of Radiation Oncology in [address] [phone] Elsie Dewey M.D. [address] [place] [phone] 10/02/2023 1:00 PM CDT Appointment Department of Radiation Oncology in [address] [phone] Elsie Dewey M.D. [address] [place] [phone] 10/03/2023 1:45 PM CDT Appointment Department of Radiation Oncology in [address] [phone] Elsie Dewey M.D. [address] [place] [phone] 10/04/2023 1:45 PM CDT Appointment Department of Radiation Oncology in [address] [phone] Elsie Dewey M.D. [address] [place] [phone] 10/07/2023 1:45 PM CDT Appointment Department of Radiation Oncology in [address] [phone] Elsie Dewey M.D. [address] [place] [phone] 10/08/2023 1:45 PM CDT Appointment Department of Radiation Oncology in [address] [phone] Elsie Dewey M.D. [address] [place] [phone] 10/08/2023 2:00 PM CDT Appointment Department of Radiation Oncology in [address] [phone] Elsie Dewey M.D. [address] [place] [phone] 10/09/2023 1:45 PM CDT Appointment Department of Radiation Oncology in [address] [address] Elsie Dewey M.D. [address] [place] [phone] 10/10/2023 1:45 PM CDT Appointment Department of Radiation Oncology in [address] [phone] Elsie Dewey M.D. [address] [place] [phone] 10/11/2023 1:45 PM CDT Appointment Department of Radiation Oncology in [address] [phone] Elsie Dewey M.D. [address] [place] [address] 10/14/2023 1:45 PM CDT Appointment Department of Radiation Oncology in [place], [place] [address] [place] [phone] Elsie Dewey M.D. [address] [place] [address] 10/15/2023 1:45 PM CDT Appointment Department of Radiation Oncology in [place], [place] [address] [place] [phone] Elsie Dewey M.D. [address] [place] [phone] 10/15/2023 2:15 PM CDT Appointment Department of Radiation Oncology in [address] [phone] Elsie Dewey M.D. [address] [place] [phone] 10/16/2023 1:45 PM CDT Appointment Department of Radiation Oncology in [address] [phone] Elsie Dewey M.D. [address] [place] [phone] 10/17/2023 1:45 PM CDT Appointment Department of Radiation Oncology in [address] [phone] Elsie Dewey M.D. [address] [place] [phone] 10/18/2023 1:45 PM CDT Appointment Department of Radiation Oncology in [place], [place] [address] [place] [phone] Elsie Dewey M.D. [address] [place] [phone] 10/21/2023 1:45 PM CDT Appointment Department of Radiation Oncology in [address] [phone] Elsie Dewey M.D. [address] [place] [phone] 10/22/2023 1:45 PM CDT Appointment Department of Radiation Oncology in [address] [address] Elsie Dewey M.D. [address] [place] [phone] 10/22/2023 2:00 PM CDT Appointment Department of Radiation Oncology in [address] [address] Elsie Dewey M.D. [address] [place] [phone] 10/23/2023 1:45 PM CDT Appointment Department of Radiation Oncology in [address] [address] Elsie Dewey M.D. [address] [place] [phone] 10/24/2023 1:45 PM CDT Appointment Department of Radiation Oncology in [address] [address] Elsie Dewey M.D. [address] [place] [phone] 10/25/2023 1:45 PM CDT Appointment Department of Radiation Oncology in [place], [place] [address] [place] [phone] Elsie Dewey M.D. 200 [place] [address] 10/28/2023 1:45 PM CDT Appointment Department of Radiation Oncology in [place], [place] [address] [place] [phone] Elsie Dewey M.D. [address] [place] [phone] 10/29/2023 1:45 PM CDT Appointment Department of Radiation Oncology in [place], [place] [address] [place] [phone] Elsie Dewey M.D. 200 [place] [address] 10/29/2023 2:00 PM CDT Appointment Department of Radiation Oncology in [address] [address] Elsie Dewey M.D. [address] [place] [phone] 10/30/2023 1:45 PM CDT Appointment Department of Radiation Oncology in [address] [address] Elsie Dewey M.D. [address] [place] [phone] 10/31/2023 1:45 PM CDT Appointment Department of Radiation Oncology in [address] [place] [address] Elsie Dewey M.D. 200 [place] [address] 11/01/2023 1:45 PM CDT Appointment Department of Radiation Oncology in [place], [place] [address] [place] [address] Elsie Dewey M.D. 200 [place] [address] Scheduled Orders Name Type Priority Associated Diagnoses Order Schedule Prior Auth Rad Tx Radiation Oncology Routine Malignant Neoplasm Of Lung Right (HCC) Ordered: 09/09/2023 Management Visit Radiation Oncology Routine Malignant Neoplasm Of Lung Right (HCC) 10 Occurrences starting 09/09/2023 until 09/08/2024 Scheduled Referrals Name Type Priority Associated Diagnoses Order Schedule Radiation Oncology office visit (clinic) Outpatient Referral Routine Once for 1 Occurrences starting 09/09/2023 until 09/09/2023 Radiation Oncology - PRO education visit Outpatient Referral Routine Malignant Neoplasm Of Lung Right (HCC) Expected: 09/09/2023 (Approximate), Expires: 12/09/2024 Radiation Oncology - Nurse education visit (clinic) Outpatient Referral Routine Malignant Neoplasm Of Lung Right (HCC) Expected: 09/09/2023 (Approximate), Expires: 09/08/2024 documented as of this encounter Results * Initial Rad Onc Treatment Planning CT Simulation (09/11/2023 1:00 PM CDT) Narrative [facility] - 09/11/2023 1:00 PM CDT Ese Castaneda, RTT ? 09/11/2023 ??1:10 PM Initial Rad Onc Treatment Planning CT Simulation Performed by: Elsie Dewey M.D. Authorized by: Elsie Dewey M.D. ?? Elsie Dewey M.D. RADIATION ONCOLOG Y ORDERABLES REJI SANDOVAL neelima documented in this encounter Visit Diagnoses Diagnosis Malignant Neoplasm Of Lung Left (HCC)- Primary Malignant Neoplasm Of Lung Right (HCC) Malignant Neoplasm Of Lung Right (HCC) documented in this encounter
--- OUTSIDE RECORDS SUMMARY | 2023-09-23 07:07 | XMS_ITS | Encounter Summary ---
Author Name Unknown Organization [facility] Address [address] [place] [address] Care Team Providers Care Replenishment Associate Name Role Phone Unavailable Primary Care Provider Unavailabl e Encounter Details Date Type Department Care Team (Latest Contact Info) Description 09/04/2023 11:59 AM CDT - 09/04/2023 11:59 PM CDT Hospital Encounter Department of Laboratory Medicine and Pathology, [facility], in [place], [place] [address] [place] [address] Nilo Pickett APRN, C.N.P., D.N.P. [address] [place] [address] Malignant Neoplasm Of Lung Left (HCC); Nodules Pulmonary Multiple; Lymphadenopathy Mediastinum; Abnormal Positron Emission Tomography Scan; Stroke Cerebrovascular Accident Personal History; Anemia Microcytic Discharge Disposition: Home or Self Care Social [...] declined 10/31/2022 How often do you attend mu-ism or sikh serv ices? Never 10/31/2022 Do you belong to any clubs o r organizations such as mu-ism groups, unions, fraternal or athletic groups, or [...] and heating? Not hard at all 10/31/2022 [facility] [place] of Occupat ional Health - Occupational Stress [...] place to sleep or slept in a [facility] (including now)? No 10/31/2022 Nutrition Answer Date [...] 05/28/2022 09/13/2023 documented as of this encounter Plan of Treatment Upcoming Encounters Date Type Department Care Team (Late st Contact Info) Description 09/23/2023 2:00 PM CDT Appointment Department of Radiation Oncology in [address] [phone] Elsie Dewey M.D. 200 [place] [address] 09/24/2023 9:00 AM CDT Appointment Department of Radiation Oncology in [place] [address] [place] [address] Elsie Dewey M.D. 200 [place] [address] 09/24/2023 9:30 AM CDT Appointment Department of Radiation Oncology in [place], [place] [address] [place] [phone] Elsie Dewey M.D. [address] [place] [phone] 09/25/2023 1:00 PM CDT Appointment Department of Radiation Oncology in [place], [place] [address] [place] [phone] Elsie Dewey M.D. [address] [place] [phone] 09/26/2023 1:00 PM CDT Appointment Department of Radiation Oncology in [address] [address] Elsie Dewey M.D. [address] [place] [phone] 09/26/2023 1:15 PM CDT Appointment Department of Radiation Oncology in [address] [address] Elsie Dewey M.D. [address] [place] [phone] Kirsten Bella R.N. [address] [place] [phone] 09/27/2023 1:00 PM CDT Appointment Department of Radiation Oncology in [address] [address] Elsie Dewey M.D. [address] [place] [phone] 09/30/2023 1:00 PM CDT Appointment Department of Radiation Oncology in [address] [address] Elsie Dewey M.D. [address] [place] [phone] 10/01/2023 1:45 PM CDT Appointment Department of Radiation Oncology in [place], [place] [address] [place] [phone] Elsie Dewey M.D. [address] [place] [phone] 10/01/2023 2:00 PM CDT Appointment Department of Radiation Oncology in [address] [address] Elsie Dewey M.D. [address] [place] [phone] 10/02/2023 1:00 PM CDT Appointment Department of Radiation Oncology in [place], [place] [address] [place] [phone] Elsie Dewey M.D. [address] [place] [phone] 10/03/2023 1:45 PM CDT Appointment Department of Radiation Oncology in [place], [place] [address] [place] [phone] Elsie Dewey M.D. [address] [place] [phone] 10/04/2023 1:45 PM CDT Appointment Department of Radiation Oncology in [address] [address] Elsie Dewey M.D. [address] [place] [phone] 10/07/2023 1:45 PM CDT Appointment Department of Radiation Oncology in [place], [place] [address] [place] [phone] Elsie Dewey M.D. [address] [place] [phone] 10/08/2023 1:45 PM CDT Appointment Department of Radiation Oncology in [place], [place] [address] [place] [phone] Elsie Dewey M.D. [address] [place] [phone] 10/08/2023 2:00 PM CDT Appointment Department of Radiation Oncology in [address] [address] Elsie Dewey M.D. [address] [place] [phone] 10/09/2023 1:45 PM CDT Appointment Department of Radiation Oncology in [address] [address] Elsie Dewey M.D. [address] [place] [phone] 10/10/2023 1:45 PM CDT Appointment Department of Radiation Oncology in [address] [address] Elsie Dewey M.D. [address] [place] [address] 10/11/2023 1:45 PM CDT Appointment Department of Radiation Oncology in [address] [address] Elsie Dewey M.D. [address] [place] [phone] 10/14/2023 1:45 PM CDT Appointment Department of Radiation Oncology in [place], [place] [address] [place] [phone] Elsie Dewey M.D. [address] [place] [phone] 10/15/2023 1:45 PM CDT Appointment Department of Radiation Oncology in [address] [address] Elsie Dewey M.D. [address] [place] [phone] 10/15/2023 2:15 PM CDT Appointment Department of Radiation Oncology in [address] [address] Elsie Dewey M.D. [address] [place] [phone] 10/16/2023 1:45 PM CDT Appointment Department of Radiation Oncology in [address] [address] Elsie Dewey M.D. [address] [place] [phone] 10/17/2023 1:45 PM CDT Appointment Department of Radiation Oncology in [address] [address] Elsie Dewey M.D. [address] [place] [phone] 10/18/2023 1:45 PM CDT Appointment Department of Radiation Oncology in [place], [place] [address] [place] [phone] Elsie Dewey M.D. [address] [place] [phone] 10/21/2023 1:45 PM CDT Appointment Department of Radiation Oncology in [place], [place] [address] [place] [phone] Elsie Dewey M.D. [address] [place] [address] 10/22/2023 1:45 PM CDT Appointment Department of Radiation Oncology in [address] [address] Elsie Dewey M.D. [address] [place] [address] 10/22/2023 2:00 PM CDT Appointment Department of Radiation Oncology in [address] [address] Elsie Dewey M.D. [address] [place] [address] 10/23/2023 1:45 PM CDT Appointment Department of Radiation Oncology in [address] [address] Elsie Dewey M.D. [address] [place] [phone] 10/24/2023 1:45 PM CDT Appointment Department of Radiation Oncology in [address] [address] Elsie Dewey M.D. [address] [place] [address] 10/25/2023 1:45 PM CDT Appointment Department of Radiation Oncology in [place], [place] [address] [place] [address] Elsie Dewey M.D. 200 [place] [address] 10/28/2023 1:45 PM CDT Appointment Department of Radiation Oncology in [place], [place] [address] [place] [phone] Elsie Dewey M.D. 200 [place] [address] 10/29/2023 1:45 PM CDT Appointment Department of Radiation Oncology in [place], [place] [address] [place] [address] Elsie Dewey M.D. [address] [place] [phone] 10/29/2023 2:00 PM CDT Appointment Department of Radiation Oncology in [address] [address] Elsie Dewey M.D. 200 [place] [address] 10/30/2023 1:45 PM CDT Appointment Department of Radiation Oncology in [place], [place] [address] [place] [phone] Elsie Dewey M.D. [address] [place] [phone] 10/31/2023 1:45 PM CDT Appointment Department of Radiation Oncology in [place], [place] [address] [place] [address] Elsie Dewey M.D. 200 [place] [address] 11/01/2023 1:45 PM CDT Appointment Department of Radiation Oncology in [place], [place] [address] [place] [address] Elsie Dewey M.D. 200 [place] [address] Scheduled Orders Name Type Priority Associated Diagnoses Order Schedule SPSMA Result Pathology and Cytology Routine Anemia Microcytic Once for 1 Occurrences starting 09/04/2023 until 09/04/2023 Iron and Total Iron-Binding Capacity Lab Routine Anemia Microcytic Once for 1 Occurrences starting 09/04/2023 until 09/04/2023 Ferritin Lab Routine Anemia Microcytic Once for 1 Occurrences starting 09/04/2023 until 09/04/2023 Vitamin B12 Assay Lab Routine Anemia Microcytic Once for 1 Occurrences starting 09/04/2023 until 09/04/2023 Folate Lab Routine Anemia Microcytic Once for 1 Occurrences starting 09/04/2023 until 09/04/2023 documented as of this encounter Procedures Procedure Name Priority Date/Time Associated Diagnosis Comments PROTHROMBIN TIME (PT), P Routine 09/04/2023 12:11 PM CDT Malignant Neoplasm Of Lung Left (HCC) Nodules Pulmonary Multiple Lymphadenopathy Mediastinum Abnormal Positron Emission Tomography Scan Stroke Cerebrovascular Accident Personal History CBC WITH DIFFERENTIAL, B Routine 09/04/2023 12:11 PM CDT Malignant Neoplasm Of Lung Left (HCC) Nodules Pulmonary Multiple Lymphadenopathy Mediastinum Abnormal Positron Emission Tomography Scan COMPREHENSIVE METABOLIC PANEL, S/P Routine 09/04/2023 12:11 PM CDT Malignant Neoplasm Of Lung Left (HCC) Nodules Pulmonary Multiple Lymphadenopathy Mediastinum Abnormal Positron Emission Tomography Scan documented in this encounter Results * Prothrombin Time (PT) (09/04/2023 12:11 PM [...] APRN, C.N.P., D.N.P. L AB BLOOD ADD-ON [facility] [address] [place] [address], [facility] [place] [address] [place] [address] * (ABNORMAL) Comprehensive Metabolic Panel (09/04/2023 12:11 PM CDT) Pathologist [facility] Potassium, S 4.4 3.6 - [...] APRN, C.N.P., D.N.P. L AB BLOOD ADD-ON [address] [address], [facility] [place] [address] [place] [address] * (ABNORMAL) CBC with Differential, Blood (09/04/2023 [...] APRN, C.N.P., D.N.P. L AB BLOOD ADD-ON [facility] [address] [place] [address], [facility] DTL [facility] [address] [place] [address] DHPM [facility] [address] [place] [address] documented in this encounter Visit Diagnoses Diagnosis Malignant Neoplasm Of Lung Left (HCC) Nodules Pulmonary Multiple Lymphadenopathy Mediastinum Abnormal Positron Emission Tomography Scan Stroke Cerebrovascular Accident Personal History Anemia Microcytic documented in this encounter
--- OUTSIDE RECORDS SUMMARY | 2023-09-23 07:07 | XMS_ITS | Encounter Summary ---
Author Name Unknown Organization [facility] Address [address] [place] [id number] Care Team Providers Care Drawer In Jacquard Loom Name Role Phone Unavailable Primary Care Provider Unavailabl e Encounter Details Date Type Department Care Team (Late st Contact Info) Description 09/05/2023 7:38 AM CDT Anesthesia Event RST ROMB MAIN OR [address] [place] [phone] Darshana Reyes M.D. [address] [place] [address] [phone] Syd Patton M.D., Ph.D. [address] [place] [address] [phone] Anesthesia Record Procedure Summary Procedure Name Responsible Anesthesiologist Anesthesia Start Time Anesthesia Stop Time BRONCHOSCOPY FLEXIBLE, ENDOBRONCHIAL ULTRASOUND-GUIDED TRANSBRONCHIAL NEEDLE ASPIRATION. Darshana Reyes M.D. 09/05/23 0738 09/05/23 1018 Events Date Time Event Comment 09/05/2023 0730 0738 An Start Machine/Equipme nt Checked Infection Precautions Followed Procedure/Site Verified NPO Status Verified Supine Standard ASA Monitors Applied 0744 An Induction 0754 An Intubation 0756 Turnover to Proceduralist 0759 Proc Start 1002 Turnover to ANE Staff 1003 Proc Fin 1010 Airway Removal Criteria Met 1010 Extubation/Airway Removed 1013 an stop data 1018 An End I completed my handoff to the receiving staff during which we 1. Identified the patient 2. Identified the responsible provider 3. Reviewed the pertinent medical history 4. Discussed the surgical course 5. Reviewed intra-op anesthesia management and issues during anesthesia 6. Set expectations for post-procedure period 7. Allowed opportunity for questions and acknowledgement of understanding. Meds Name Total fentanyl injection 50 mcg/mL 100 mcg lidocaine 2% (mg) injection 60 mg rocuronium 10 mg/mL injection 80 mg phenylephrine 100 mcg/mL injection 450 m cg ondansetron 4 mg/2 mL injection 4 mg sugammadex 100 mg/mL injection 200 mg propofol 10 mg/mL infusion 741.08 mg propofol 10 mg/mL injection 200 mg dexAMETHasone (DECADRON) injection 4 mg/ mL 8 mg Lactated Ringers Free Drip 800 mL * Agents No agents on file. * Blood No blood administrations on file. Lines, Drains, and Airways Type Details Placement Removal Peripheral IV Placement Date: 08/16 07/10; Placement Time: 0612; Catheter Size: 20 G; Orientation: Right; Location: Forearm; Site Prep: Chlorhexidine (Preferred); Technique: Anatomical landmarks; Insertion Attempts: 1; Removal Date: 09/05/23; Removal Time: 1155 09/05/23 0612 by Daisy Pizano, R.NJessica 09/05/23 1155 by Cass Orozco, R.N. ETT Placement Date: 08/16 07/10; Placement Time: 0754 (created via procedure documentation); Mask Ventilation: Oral/Nasal airway needed; Technique: Video laryngoscopy; Type: Standard ETT; Single Lumen Tube Size: 8 mm; Cuffed: Yes; Location: Oral; Grade View: Grade 2A; Insertion Attempts: 1; Placement Verification: Bilateral breath sounds, Positive ETCO2, Symmetrical chest wall movement; Removal Date: 09/05/23; Removal Time: 1013 09/05/23 0754 by Rufino Saavedra M.D., M.B.A. 09/05/23 1013 by Dariusz Pacheco APRN, STEVE, DNAP documented in this encounter Social History Tobacco Use Types Packs/Day Years [...] declined 10/31/2022 How often do you attend lutheran or orthodoxy serv ices? Never 10/31/2022 Do you belong to any clubs o r organizations such as lutheran groups, unions, fraternal or athletic groups, or [...] and heating? Not hard at all 10/31/2022 [employer] - Occupational Stress [...] AM CDT documented as of this encounter OR Notes * Anesthesia Postprocedure Evaluation - Darshana Reyes M.D. - 09/05/2023 10:42 AM CDT Patient: Anila Henderson Procedure Summary Date: 09/05/23 Room / Location: [address] / [facility] in [place], [place] Anesthesia Start: 737 Anesthesia Stop: 101 Procedures: BRONCHOSCOPY FLEXIBLE, ENDOBRONCHIAL ULTRASOUND-GUIDED TRANSBRONCHIAL NEEDLE ASPIRATION. BRONCHOSCOPY FLEXIBLE, TRANSBRONCHOSCOPIC BIOPSY, FORCEPS. ROBOTIC-ASSISTED BRONCHOSCOPY. Diagnosis: Malignant Neoplasm Of Lung Left (HCC) Nodules Pulmonary Multiple Lymphadenopathy Mediastinum Abnormal Positron Emission Tomography Scan (Malignant Neoplasm Lung Left (HCC) [C34.92], Nodules Pulmonary Multiple [R91.8], Lymphadenopathy Mediastinum [R59.0], Abnormal Positron Emission Tomography Scan [R94.8].) Providers: Phil Abreu M.D. Responsible Provider: Darshana Reyes M.D. Anesthesia Type: general ASA Status: 3 Anesthesia Type: general Last vitals Vitals Value Taken Time BP 143/77 09/05/23 1030 Temp 36.6 ??C 09/05/23 1020 Pulse 72 09/05/23 1042 Resp 16 09/05/23 1042 SpO2 95 % 09/05/23 1042 Vitals shown include unfiled device data. Please reference Vitals flowsheet for most recent vital signs. Anesthesia Post Evaluation Patient Disposition: dismissal Cardiovascular status: hemodynamics (HR & BP) acceptable Respiratory status: patent airway with spontaneous effort Temperature: normothermic Oxygen requirements: room air Level of consciousness: awake Pain score: pain adequately controlled and/or at baseline Post Op nausea/vomiting: none Hydration status: euvolemic * Anesthesia Procedure Notes - Dariusz Pacheco, WAGE CONCILIATOR, FIXING MACHINE OPERATOR, DNAP - 09/05/2023 7:56 AM CDTAssociated Order(s): Airway Airway Date/Time: 09/05/2023 7:54 AM Performed by: Rufino Saavedra M.D., M.B.A. Authorized by: Darshana Reyes M.D. Patient location during procedure: OR / Procedure Area PROCEDURE DETAILS: Mask difficulty assessment: oral/nasal airway needed Final airway type: video laryngoscope Laryngeal Manipulation: no Final best view of glottic structures - Cormack/Lehane Score: grade 2A ETT location: oral VL device: glide scope Zelienople scope blade size: 3 Tube size: 8 [...] ANESTHESIA Anesthesia method: anesthesia POST PROCEDURE DETAILS: Procedure outcome: successful Notable Events: no complications * Anesthesia Preprocedure Evaluation - Darshana Reyes M.D. - 09/05/2023 7:30 AM CDT Preprocedure Anesthesia & H&P Assessment Procedure Summary Date/Time: 09/05/23 0715 Procedures: BRONCHOSCOPY FLEXIBLE, ENDOBRONCHIAL ULTRASOUND-GUIDED TRANSBRONCHIAL NEEDLE ASPIRATION. BRONCHOSCOPY FLEXIBLE, TRANSBRONCHOSCOPIC BIOPSY, FORCEPS. ROBOTIC-ASSISTED BRONCHOSCOPY. Diagnosis: Malignant Neoplasm Of Lung Left (HCC) [C34.92] Nodules Pulmonary Multiple [R91.8] Lymphadenopathy Mediastinum [R59.0] Abnormal Positron Emission Tomography Scan [R94.8] Pre-op diagnosis: Malignant Neoplasm Lung Left (HCC) [C34.92], Nodules Pulmonary Multiple [R91.8], Lymphadenopathy Mediastinum [R59.0], Abnormal Positron Emission Tomography Scan [R94.8]. Location: [address] [facility] / [facility] in [place], [place] Providers: Phil Abreu M.D. Pertinent components of the patient's history including current problem list, medical history, surgical history, family history, social history, medications and allergies were reviewed. Present illness and pre-op diagnosis were confirmed. The planned surgery / procedure was verified with the patient / legal guardian. The patient's general health condition remains unchanged RELEVANT COMORBID CONDITIONS No relevant active problems OBJECTIVE PHYSICAL EXAMINATION Airway (HEENT) Mallampati: III TM Distance: >3 FB Neck ROM: Full Mouth Opening: >3 cm Cardiovascular Rhythm: Regular Rate: Normal Cardiovascular Assessment: cardiovascular normal Pulmonary Pulmonary Assessment: Clear General / Constitutional Constitutional Assessment: Normal General State of Health:: healthy appearing and calm Neurological Neurologic Assessment: alert and alert and oriented x 3 Dental Dental Assessment: lower dentures and upper dentures ASSESSMENT / PLAN ANESTHESIA PLAN ASA: 3 Anesthesia Plan: general Videolaryngoscopy; GETA Patient seen and allergies reviewed, anesthesia plan and risks discussed directly with patient /legal guardian or through an letter of credit document examiner. Risks/Benefits/Alternatives of Blood transfusion discussed with patient / legal guardian, includingan opportunity to ask questions and/or decline some or all transfusion therapies. The patient / legal guardian consented to the use of all blood products, as deemed medically necessary Approval to Proceed: approved for anesthesia documented in this encounter Plan of Treatment Upcoming Encounters Date Type Department Care Team (Late st Contact Info) Description 09/23/2023 2:00 PM CDT Appointment Department of Radiation Oncology in [address] [phone] Elsie Dewey M.D. 200 [place] [phone] 09/24/2023 9:00 AM CDT Appointment Department of Radiation Oncology in [address] [phone] Elsie Dewey M.D. 200 [place] [phone] 09/24/2023 9:30 AM CDT Appointment Department of Radiation Oncology [place] [address] [place] [phone] Elsie Dewey M.D. [address] [place] [phone] 09/25/2023 1:00 PM CDT Appointment Department of Radiation Oncology in [address] [phone] Elsie Dewey M.D. [address] [place] [phone] 09/26/2023 1:00 PM CDT Appointment Department of Radiation Oncology in [address] [phone] Elsie Dewey M.D. [address] [place] [phone] 09/26/2023 1:15 PM CDT Appointment Department of Radiation Oncology in [address] [phone] Elsie Dewey M.D. [address] [place] [phone] Kirsten Bella R.N. [address] [place] [phone] 09/27/2023 1:00 PM CDT Appointment Department of Radiation Oncology in [address] [phone] Elsie Dewey M.D. [address] [place] [phone] 09/30/2023 1:00 PM CDT Appointment Department of Radiation Oncology in [address] [phone] Elsie Dewey M.D. [address] [place] [phone] 10/01/2023 1:45 PM CDT Appointment Department of Radiation Oncology in [place] [address] [place] [phone] Elsie Dewey M.D. [address] [place] [phone] 10/01/2023 2:00 PM CDT Appointment Department of Radiation Oncology in [address] [phone] Elsie Dewey M.D. [address] [place] [phone] 10/02/2023 1:00 PM CDT Appointment Department of Radiation Oncology in [place], [place] [address] [place] [phone] Elsie Dewey M.D. [address] [place] [phone] 10/03/2023 1:45 PM CDT Appointment Department of Radiation Oncology in [place], [place] [address] [place] [phone] Elsie Dewey M.D. [address] [place] [phone] 10/04/2023 1:45 PM CDT Appointment Department of Radiation Oncology in [place], [place] [address] [place] [phone] Elsie Dewey M.D. [address] [place] [phone] 10/07/2023 1:45 PM CDT Appointment Department of Radiation Oncology in [place], [place] [address] [place] [phone] Elsie Dewey M.D. [address] [place] [phone] 10/08/2023 1:45 PM CDT Appointment Department of Radiation Oncology in [address] [phone] Elsie Dewey M.D. [address] [place] [phone] 10/08/2023 2:00 PM CDT Appointment Department of Radiation Oncology in [address] [phone] Elsie Dewey M.D. [address] [place] [phone] 10/09/2023 1:45 PM CDT Appointment Department of Radiation Oncology in [address] [phone] Elsie Dewey M.D. [address] [place] [phone] 10/10/2023 1:45 PM CDT Appointment Department of Radiation Oncology in [address] [phone] Elsie Dewey M.D. [address] [place] [phone] 10/11/2023 1:45 PM CDT Appointment Department of Radiation Oncology in [address] [phone] Elsie Dewey M.D. [address] [place] [phone] 10/14/2023 1:45 PM CDT Appointment Department of Radiation Oncology in [place], [place] [address] [place] [phone] Elsie Dewey M.D. [address] [place] [phone] 10/15/2023 1:45 PM CDT Appointment Department of Radiation Oncology in [address] [phone] Elsie Dewey M.D. [address] [place] [phone] 10/15/2023 2:15 PM CDT Appointment Department of Radiation Oncology in [address] [phone] Elsie Dewey M.D. [address] [place] [phone] 10/16/2023 1:45 PM CDT Appointment Department of Radiation Oncology in [address] [phone] Elsie Dewey M.D. [address] [place] [phone] 10/17/2023 1:45 PM CDT Appointment Department of Radiation Oncology in [address] [phone] Elsie Dewey M.D. [address] [place] [phone] 10/18/2023 1:45 PM CDT Appointment Department of Radiation Oncology in [place], [place] [address] [place] [phone] Elsie Dewey M.D. [address] [place] [phone] 10/21/2023 1:45 PM CDT Appointment Department of Radiation Oncology in [address] [phone] Elsie Dewey M.D. [address] [place] [phone] 10/22/2023 1:45 PM CDT Appointment Department of Radiation Oncology in [address] [phone] Elsie Dewey M.D. [address] [place] [phone] 10/22/2023 2:00 PM CDT Appointment Department of Radiation Oncology in [address] [phone] Elsie Dewey M.D. [address] [place] [phone] 10/23/2023 1:45 PM CDT Appointment Department of Radiation Oncology in [address] [phone] Elsie Dewey M.D. [address] [place] [phone] 10/24/2023 1:45 PM CDT Appointment Department of Radiation Oncology in [address] [phone] Elsie Dewey M.D. [address] [place] [phone] 10/25/2023 1:45 PM CDT Appointment Department of Radiation Oncology in [place], [place] [address] [place] [address] Elsie Dewey M.D. 200 [place] [address] 10/28/2023 1:45 PM CDT Appointment Department of Radiation Oncology in [place], [place] [address] [place] [phone] Elsie Dewey M.D. [address] [place] [phone] 10/29/2023 1:45 PM CDT Appointment Department of Radiation Oncology in [place], [place] [address] [place] [phone] Elsie Dewey M.D. 200 [place] [address] 10/29/2023 2:00 PM CDT Appointment Department of Radiation Oncology in [place], [place] [address] [place] [phone] Elsie Dewey M.D. [address] [place] [phone] 10/30/2023 1:45 PM CDT Appointment Department of Radiation Oncology in [place], [place] [address] [place] [phone] Elsie Dewey M.D. [address] [place] [phone] 10/31/2023 1:45 PM CDT Appointment Department of Radiation Oncology in [place] [address] [place] [address] Elsie Dewey M.D. 200 [place] [address] 11/01/2023 1:45 PM CDT Appointment Department of Radiation Oncology in [place], [place] [address] [place] [address] Elsie Dewey M.D. 200 [place] [phone] documented as of this encounter Procedures Procedure Name Priority Date/Time Associated Diagnosis Comments LDA ANE ENDOTRACHEAL AIRWAY Routine 09/05/2023 7:54 AM CDT documented in this encounter Results * LDA ANE ENDOTRACHEAL AIRWAY (09/05/2023 7:54 [...] ETT location: oral VL device: glide scope Zelienople scope blade size: 3 Tube size: 8 [...] complications Darshana Reyes M.D. ANESTHESIA ORDERAB LES documented in this encounter Visit Diagnoses Not on filedocumented in this encounter Administered Medications Inactive Administered Medications - up to 3 most recent administrations Medication Order MAR Action Action Date Dose Rate Site dexAMETHasone injection (DECADRON) intravenous, As needed, Starting on Natali 09/05/23 at 0802, Anesthesia Intra-op Given 09/05/2023 8:02 AM CDT 8 mg fentaNYL injection (SUBLIMAZE) intravenous, As needed, Starting on Natali 09/05/23 at 0758, Anesthesia Intra-op Given 09/05/2023 9:10 AM CDT 50 mcg Given 09/05/2023 9:07 AM CDT 25 mcg Given 09/05/2023 7:58 AM CDT 25 mcg Lactated Ringer's intravenous, Continuous Infusion: Per Instructions PRN, Starting on Natali 09/05/23 at 0741, Anesthesia Intra-op New Bag 09/05/2023 7:41 AM CDT lidocaine (PF) (cardiac) injection intravenous, As needed, Starting on Natali 09/05/23 at 0748, Anesthesia Intra-op Given 09/05/2023 7:48 AM CDT 60 mg ondansetron (PF) injection (ZOFRAN) intravenous, As needed, Starting on Natali 09/05/23 at 0930, Anesthesia Intra-op Given 09/05/2023 9:30 AM CDT 4 mg phenylephrine injection intravenous, As needed, Starting on Natali 09/05/23 at 0823, Anesthesia Intra-op Given 09/05/2023 9:26 AM CDT 100 mcg Given 09/05/2023 9:19 AM CDT 100 mcg Given 09/05/2023 9:16 AM CDT 50 mcg propofol 10 mg/mL infusion (DIPRIVAN) intravenous, Continuous Infusion: Per Instructions PRN, Starting on Natali 09/05/23 at 0748, Anesthesia Intra-op Rate/Dose Change 09/05/2023 9:58 AM CDT 50 mcg/kg/min 16.83 mL/hr Rate/Dose Change 09/05/2023 9:51 AM CDT 70 mcg/kg/min 23.5 62 mL/hr Rate/Dose Change 09/05/2023 9:32 AM CDT 80 mcg/kg/min 26.9 28 mL/hr propofoL injection (DIPRIVAN) intravenous, As needed, Starting on Natali 09/05/23 at 0748, Anesthesia Intra-op Given 09/05/2023 9:11 AM CDT 40 mg Given 09/05/2023 8:05 AM CDT 30 mg Given 09/05/2023 7:51 AM CDT 30 mg rocuronium injection (ZEMURON) intravenous, As needed, Starting on Natali 09/05/23 at 0748, Anesthesia Intra-op Given 09/05/2023 9:08 AM CDT 20 mg Given 09/05/2023 8:34 AM CDT 20 mg Given 09/05/2023 7:48 AM CDT 40 mg sugammadex injection (BRIDION) intravenous, As needed, Starting on Natali 09/05/23 at 1003, Anesthesia Intra-op Given 09/05/2023 10:03 AM CDT 200 mg documented in this encounter
--- OUTSIDE RECORDS SUMMARY | 2023-09-23 07:08 | XMS_ITS | Encounter Summary ---
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 [address] [place] [phone] Elsie Dewey M.D. [address] [place] [phone] Referral ID Status Reason Start Date Expiration Date Visits Re quested Visits Authorized [id number] Closed 08/29/2023 02/27/2025 1 1 Scheduling Instructions MRI brain and bronchoscopy prior in [place] * Outpatient (Routine) - Authorized Specialty Diagnoses / Procedures Referred By Ervin frye Referred To Contact Medical Oncology / Oncology Diagnoses Malignant Neoplasm Of Lung Right (HCC) Danielle Glover P.A.-C., M.S. [address] [place] [phone] [facility] Referral ID Status Reason Start Date Expiration Date V isits Requested Visits Authorized [id number] Authorized 08/29/2023 02/27/2025 1 1 Scheduling Instructions [facility] [place], please schedule in approximately 2 weeks. MRI brain and bronchoscopy consult already ordered in [place]. * Outpatient (Routine) - Closed Specialty Diagnoses / Procedures Referred By Ervin frye Referred To Contact Radiation Oncology Danielle Glover P.A.-C., M.S. [address] [place] [phone] Elsie Dewey M.D. [address] [place] [phone] Referral ID Status Reason Start Date Expiration Date Visits Re quested Visits Authorized [id number] Closed 08/27/2023 02/25/2025 1 1 Reason for Visit * Outpatient (Routine) - Closed Specialty Diagnoses / Procedures Referred By Ervin frye Referred To Contact Radiation Oncology Danielle Glover P.A.-C., M.S. [address] [place] [phone] Elsie Dewey M.D. [address] [place] [phone] Referral ID Status Reason Start Date Expiration Date Visits Re quested Visits Authorized [id number] Closed 08/27/2023 02/25/2025 1 1 Encounter Details Date Type Department Care Team (Latest Contact Info) Description 08/29/2023 9:14 AM CDT - 08/29/2023 4:11 PM CDT Hospital Encounter Department of Radiation Oncology in [place], [place] [address] [place] [phone] Elsie Dewey M.D. [address] [place] [address] [place] [phone] Malignant Neoplasm Of Lung Left (HCC) (Primary [...] declined 10/31/2022 How often do you attend [employer] or druze serv ices? Never 10/31/2022 Do you belong to any clubs o r organizations such as [employer] groups, unions, fraternal or athletic groups, or [...] and heating? Not hard at all 10/31/2022 [facility] - Occupational [...] place to sleep or slept in a fdc (including now)? No 10/31/2022 Nutrition Answer Date [...] Sign Reading Time Taken Comments Blood Pressure 155/75 08/29/2023 9:19 AM CDT Pulse 82 08/29/2023 9:19 AM CDT Temperature 35.7 ??C (96.3 ??F) 08/29/2023 9:19 AM CD T Respiratory Rate - - Oxygen Saturation - - Inhaled Oxygen Concentration - - Weight 57.9 kg (127 lb 10.3 oz) 08/29/2023 9:19 AM CDT Height - - Body Mass Index 23.25 11/19/2014 2:51 PM CDT documented in this encounter Medications at [...] as of this encounter Progress Notes * Danielle Glover P.A.-C., M.S. - 08/29/2023 9:30 AM CDT SUBJECTIVE DIAGNOSIS 1. Malignant Neoplasm Of Lung Left (HCC) 2. Malignant Neoplasm Of Lung Right (HCC) SUPERVISED BY: Elsie Dewey M.D. HISTORY OF PRESENT ILLNESS Mrs. Anila Henderson is a 73-year-old female with a history of left lower lung cancer and multiple pulmonary nodules that had been monitored until December 2022 when the patient elected to discontinue routine monitoring. She is now being seen for a follow-up visit after a having a PET-CT scan performed. Her oncologic history is as follows: 1. September 2011: Mrs. Henderson was diagnosed [...] lower lobe nodule, now measuring 8 mm. 6. March 23, 2015: SBRT (5400 in three fractions) completed to the left lower lung nodule. 7. March 30, 2015: ETU evaluation for [...] with the two right lower nodules likely marketing representative of low-grade adenocarcinoma. 14. April 22, [...] retrospectively on the same nodule back to 2016. The volume of the nodule had increased. [...] 29, 2022: PFTs demonstrate and FEV1 of 1.08L (54% of predicted); unable to perform a DLCO. 21. 2023: CT chest demonstrated a spiculated mass in the left upper lobe measuring 7.6 mm, unchanged. A spiculated mass near the right hilum [...] is stable compared to the prior study. 22. July 30, 2023: Her case was reviewed at daily lung tumor board. Recommendation was to consider PET/CT, biopsy and chemo, chemo/immunotherapy or radiation. 23. August 15, 2023: PET-CT demonstrated a nodule in the right upper lobe measuring 1.8 x 1.8 cm,SUV max 25.69. Spiculated opacity in the right lower lobe, SUV max 3.97, indeterminate. Right hilarlymph node measuring 1.2 x 1.0 cm, SUV max 21.69. Right lower paratracheal lymph node measuring 1.0x 0.6 cm, SUV max 16.66. Bilateral adnexal cysts were present. No hypermetabolism or internal complexity was identified, but recommend nonemergent pelvic ultrasound for further evaluation, if/when clinically appropriate. INTERVAL HISTORY: The patient was seen and examined today with Dr. Dewey. The patient reports good energy levels. She denies shortness of breath at rest. She reports being able to walk on the treadmill for 12 minutes before needing to stop due to breathing. She has persistent swallowing issues since her stroke and she will cough with eating. She otherwise denies coughing. She denies hemoptysis. She denies fever. She reports occasional discomfort in the central chest that comes and goes. She is not aware of any precipitating causes of the pain. She denies any other specific symptoms or concerns at this time. REVIEW OF SYSTEMS Review of systems was negative except as documented above. PATIENT REPORTED SYMPTOM SCREEN: FATIGUE (Scale: 0 = no fatigue; 10 = worst fatigue you can imagine): 1 PAIN (Scale: 0 = no pain; 10 = worst pain you can imagine): 1 OVERALL QUALITY OF LIFE (Scale: 0 = as bad as can be; 10 = as good as can be): 8 OBJECTIVE BP 155/75 (BP Location: Right arm, Patient Position: Sitting, Cuff Size: Regular) Pulse 82 Temp(!) 35.7 ??C (Temporal) Wt 57.9 kg BMI 23.25 kg/m?? PHYSICAL EXAMINATION General: Patient is alert and oriented and in no apparent distress. The patient is here today with her .. Heart: Regular rate and rhythm. Lungs: Clear to auscultation bilaterally. Lymph: No palpable cervical, supraclavicular, or infraclavicular lymphadenopathy. ASSESSMENT / PLAN #1 RUL nodule, moderate progression #2 Right lower lobe lesion, mild progression #3 Stable AMANDA and upper RLL lesions #4 Medically inoperable left lower lobe cancer, not biopsy proven, treated with SBRT in March 2015 #5 Multiple pulmonary nodules, suspicious for multiple synchronous early lung cancers #6 PET avid right upper lung and mediastinal/hilar lymph nodes #7 Mild FDG avidity in a right lower lung lesion The patient is doing well overall. She denies any specific symptoms or concerns today. She does have persistent swallowing difficulties following her stroke. We reviewed her recent PET-CT scan results that demonstrated findings suggesting a primary lung cancer in the right upper lobe of the lung with two ipsilateral gayle metastases. There was also an indeterminate opacity in the right lower lobewith modest FDG uptake. We discussed Dr. Dewey' recommendation to proceed with a brain MRI and bronchoscopy and EBUS evaluation for tissue confirmation. She also recommends referral to Medical Oncology. Dr. Dewey also metwith the patient today, please see her attestation for details. After their discussion it was agreed to order for a brain MRI and bronchoscopy consult to be scheduled in [place]. Dr. Dewey plans to present the patient's case at Tumor Board today as well. In addition, a referral order to Medical Oncology at [facility] was placed, to be scheduled in approximately 2 weeks. We will also order for a return visit to be scheduled here to review the results and discuss the plan of care for the patient. The patient will contact us with questions or concerns. She verbally expressed her understanding of the plan. EDUCATION: Ready to learn, no apparent learning barriers were identified; learning preferences include listening. Explained diagnosis and treatment plan; patient expressed understanding of the content. I personally spent 35 minutes in care of the patient today. Time includes both non face to face andface to face patient care. Signed by: Danielle Glover P.A.-C., MDong. 08/29/2023 10:51 AM CDT [facility] [address] [place] [address] Associated attestation - Elsie Dewey M.D. - 08/29/2023 4:10 PM CDT RADIATION ONCOLOGY FOLLOW-UP VISIT I saw and evaluated the patient and participated in the eubanks portions of the service. I reviewed thedocumentation of Ms. Danielle Glover PA-C, and agree with the findings and plan. Mrs. Anila Henderson is a 73-year-old female former smoker treated in March of 2015 with 54Gy in 3 fractions for a growing left lower lobe lung nodule consistent with early stage lung cancer. She had pulmonary nodules that were being monitored, but then in December of 2022 she elected to not want routine monitoring with me and was sent back to her primary care, Dr. Heart, for regular follow-up and imaging if clinically needed. She then had some back pain that prompted a CT chest that show progression of some of the known lung nodules. She returns now to discuss results from her PET/CT. We discussed the findings above and below in this note with the patient and her . We discussed her treatment alternatives. We reviewed her imaging together. I would recommend that we obtain a brain MRI and tissue confirmation. I would recommend bronchoscopy and EBUS evaluation of her lymph nodes and biopsy of the enlarging highly PET avid right upper lung lesion. I am concerned that she could have more advanced gayle disease. I will refer her to [facility] and see her back after these tests are done for further discussion. My thanks to for the opportunity to participate in this patient's care. EDUCATION Ready to learn, no apparent learning barriers were identified; learning preferences include listening. Explained diagnosis and treatment plan; patient expressed understanding of the content. CONSENT Discussed the risks, benefits, alternatives, and the necessity of other members of the healthcare team participating in the procedure. All questions answered and consent given. DIAGNOSIS #1 RUL nodule, moderate progression #2 Right lower lobe lesion, mild progression #3 Stable AMANDA and upper RLL lesions #4 Medically inoperable left lower lobe cancer, not biopsy proven, treated with SBRT in March 2015 #5 Multiple pulmonary nodules, suspicious for multiple synchronous early lung cancers #6 PET avid right upper lung and mediastinal/hilar lymph nodes. #7 Mild FDG avidity in a right lower and upper lung lesions Signed by: Elsie Dewey M.D., 08/29/2023 documented in this encounter Plan of Treatment Upcoming Encounters Date Type Department Care Team (Late st Contact Info) Description 09/23/2023 2:00 PM CDT Appointment Department of Radiation Oncology in [address] [phone] Elsie Dewey M.D. [address] [place] [phone] 09/24/2023 9:00 AM CDT Appointment Department of Radiation Oncology in [address] [phone] Elsie Dewey M.D. [address] [place] [phone] 09/24/2023 9:30 AM CDT Appointment Department of Radiation Oncology in [address] [phone] Elsie Dewey M.D. [address] [place] [phone] 09/25/2023 1:00 PM CDT Appointment Department of Radiation Oncology in [address] [phone] Elsie Dewey M.D. [address] [place] [phone] 09/26/2023 1:00 PM CDT Appointment Department of Radiation Oncology in [place], [place] [address] [place] [phone] Elsie Dewey M.D. [address] [place] [phone] 09/26/2023 1:15 PM CDT Appointment Department of Radiation Oncology in [address] [phone] Elsie Dewey M.D. [address] [place] [phone] Kirsten Bella R.N. [address] [place] [phone] 09/27/2023 1:00 PM CDT Appointment Department of Radiation Oncology in [address] [phone] Elsie Dewey M.D. [address] [place] [phone] 09/30/2023 1:00 PM CDT Appointment Department of Radiation Oncology in [address] [phone] Elsie Dewey M.D. [address] [place] [phone] 10/01/2023 1:45 PM CDT Appointment Department of Radiation Oncology in [address] [phone] Elsie Dewey M.D. [address] [place] [phone] 10/01/2023 2:00 PM CDT Appointment Department of Radiation Oncology in [address] [phone] Elsie Dewey M.D. [address] [place] [phone] 10/02/2023 1:00 PM CDT Appointment Department of Radiation Oncology in [place], [place] [address] [place] [address] Elsie Dewey M.D. [address] [place] [phone] 10/03/2023 1:45 PM CDT Appointment Department of Radiation Oncology in [place], [place] [address] [place] [phone] Elsie Dewey M.D. [address] [place] [phone] 10/04/2023 1:45 PM CDT Appointment Department of Radiation Oncology in [place], [place] [address] [place] [phone] Elsie Dewey M.D. [address] [place] [phone] 10/07/2023 1:45 PM CDT Appointment Department of Radiation Oncology in [place], [place] [address] [place] [phone] Elsie Dewey M.D. [address] [place] [phone] 10/08/2023 1:45 PM CDT Appointment Department of Radiation Oncology in [address] [phone] Elsie Dewey M.D. [address] [place] [phone] 10/08/2023 2:00 PM CDT Appointment Department of Radiation Oncology in [place], [place] [address] [place] [phone] Elsie Dewey M.D. [address] [place] [phone] 10/09/2023 1:45 PM CDT Appointment Department of Radiation Oncology in [address] [phone] Elsie Dewey M.D. [address] [place] [phone] 10/10/2023 1:45 PM CDT Appointment Department of Radiation Oncology in [address] [phone] Elsie Dewey M.D. [address] [place] [phone] 10/11/2023 1:45 PM CDT Appointment Department of Radiation Oncology in [address] [phone] Elsie Dewey M.D. [address] [place] [phone] 10/14/2023 1:45 PM CDT Appointment Department of Radiation Oncology in [address] [phone] Elsie Dewey M.D. [address] [place] [phone] 10/15/2023 1:45 PM CDT Appointment Department of Radiation Oncology in [address] [phone] Elsie Dewey M.D. [address] [place] [phone] 10/15/2023 2:15 PM CDT Appointment Department of Radiation Oncology in [place], [place] [address] [place] [phone] Elsie Dewey M.D. [address] [place] [phone] 10/16/2023 1:45 PM CDT Appointment Department of Radiation Oncology in [place], [place] [address] [place] [phone] Elsie Dewey M.D. [address] [place] [phone] 10/17/2023 1:45 PM CDT Appointment Department of Radiation Oncology in [place], [place] [address] [place] [phone] Elsie Dewey M.D. [address] [place] [phone] 10/18/2023 1:45 PM CDT Appointment Department of Radiation Oncology in [place], [place] [address] [place] [address] Elsie Dewey M.D. [address] [place] [phone] 10/21/2023 1:45 PM CDT Appointment Department of Radiation Oncology in [place], [place] [address] [place] [address] Elsie Dewey M.D. [address] [place] [phone] 10/22/2023 1:45 PM CDT Appointment Department of Radiation Oncology in [place], [place] [address] [place] [phone] Elsie Dewey M.D. [address] [place] [phone] 10/22/2023 2:00 PM CDT Appointment Department of Radiation Oncology in [place], [place] [address] [place] [phone] Elsie Dewey M.D. [address] [place] [phone] 10/23/2023 1:45 PM CDT Appointment Department of Radiation Oncology in [address] [phone] Elsie Dewey M.D. [address] [place] [phone] 10/24/2023 1:45 PM CDT Appointment Department of Radiation Oncology in [address] [address] Elsie Dewey M.D. [address] [place] [phone] 10/25/2023 1:45 PM CDT Appointment Department of Radiation Oncology in [address] [address] Elsie Dewey M.D. [address] [place] [phone] 10/28/2023 1:45 PM CDT Appointment Department of Radiation Oncology in [address] [address] Elsie Dewey M.D. [address] [place] [phone] 10/29/2023 1:45 PM CDT Appointment Department of Radiation Oncology in [address] [address] Elsie Dewey M.D. [address] [place] [phone] 10/29/2023 2:00 PM CDT Appointment Department of Radiation Oncology in [address] [phone] Elsie Dewey M.D. [address] [place] [phone] 10/30/2023 1:45 PM CDT Appointment Department of Radiation Oncology in [address] [phone] Elsie Dewey M.D. [address] [place] [phone] 10/31/2023 1:45 PM CDT Appointment Department of Radiation Oncology in [address] [address] Elsie Dewey M.D. [address] [place] [phone] 11/01/2023 1:45 PM CDT Appointment Department of Radiation Oncology in [address] [phone] Elsie Dewey M.D. [address] [place] [phone] Scheduled Referrals Name Type Priority Associated Diagnoses Order Schedule Radiation Oncology office visit (clinic) Outpatient Referral Routine Once for 1 Occurrences starting 08/29/2023 until 08/29/2023 Oncology - Medical, lung consult (clinic) Outpatient Referral Routine Malignant Neoplasm Of Lung Right (HCC) Expected: 08/29/2023 (Approximate), Expires: 11/28/2024 Radiation Oncology office visit (clinic) Outpatient Referral Routine Expected: 09/12/2023, Expires: 11/28/2024 documented as of this encounter Visit Diagnoses Diagnosis Malignant Neoplasm Of Lung Left (HCC)- Primary Malignant Neoplasm Of Lung Right (HCC) documented in this encounter
--- OUTSIDE RECORDS SUMMARY | 2023-09-23 07:08 | XMS_ITS | Encounter Summary ---
Author Name Unknown Organization [facility] Address [address] [place] [address] Care Team Providers Care Crester Name Role Phone Unavailable Primary Care Provider Unavailabl e Reason for Referral * MRI/CAT/PET Scan (Routine) - Closed Specialty Diagnoses / Procedures Referred By Contac t Referred To Contact Radiology Diagnoses Malignant Neoplasm Of Lung Left (HCC) Nodules Pulmonary Multiple Lymphadenopathy Mediastinum Abnormal Positron Emission Tomography Scan Procedures CT Chest without IV Contrast Nilo Pickett APRN, C.N.P., D.N.P. [address] [place] [phone] [facility] Referral ID Status Reason Start Date Expiration Date Visits Re quested Visits Authorized [id number] Closed 08/29/2023 08/28/2024 1 1 * Outpatient (Routine) - Closed Specialty Diagnoses / Procedures Referred By Contac t Referred To Contact Diagnoses Malignant Neoplasm Of Lung Left (HCC) Nodules Pulmonary Multiple Lymphadenopathy Mediastinum Abnormal Positron Emission Tomography Scan Procedures ECG 12 Lead Nilo Pickett APRN, C.N.P., D.N.P. [address] [place] [phone] [facility] Referral ID Status Reason Start Date Expiration Date Visits Re quested Visits Authorized [id number] Closed 08/29/2023 08/28/2024 1 1 Encounter Details Date Type Department Care Team (Late st Contact Info) Description 08/29/2023 Documentation Division of Pulmonary Medicine in [place], [place] [address] [place] [address] Nilo Pickett APRN, C.N.P., Perri.N.P. [address] [place] [address] Social History Tobacco Use Types Packs/Day Years [...] declined 10/31/2022 How often do you attend cheondoism or sikhism serv ices? Never 10/31/2022 Do you belong to any clubs o r organizations such as cheondoism groups, unions, fraternal or athletic groups, or [...] heating? Not hard at all 10/31/2022 [facility] of Occupat ional Health - Occupational Stress [...] place to sleep or slept in a penitentiary (including now)? No 10/31/2022 Nutrition Answer Date [...] of this encounter Progress Notes * Nilo Pickett, SELINA, C.N.P., D.N.P. - 08/29/2023 1:28 PM CDT Images from the original note were not included. Chart Update I was contacted by my radiation oncology colleague, Dr Dewey, to assist in listing this patient for bronchoscopy. Note, I have not personally evaluated this patient. Briefly, this is a 73 year-old female former smoker status post left lower lobe radiation therapy in March 2015. Her most recent PET scan from 08/15/2023 demonstrates slow progression of mixed density nodules and dominant right upper lobe hypermetabolic solid nodule; additional hypermetabolic intrathoracic nodes (not enlarged) are noted. She is reportedly of good functional status. History of stroke in 2011 for which she is on warfarin. Her case was discussed at our multidisciplinary tumor board with recommendation to proceed with bronchoscopy for lymph node sampling and transbronchial sampling of the right upper lobe nodule. We will update a thin cut chest CT scan for robotic bronchoscopy planning. She will hold anticoagulation for five days prior to procedure. We will obtain an INR the morning of her procedure. Preprocedure laboratory studies and EKG will all be updated. Note to proceduralist: Please perform flexible bronchoscopy with EBUS and TBNA for mediastinal surveillance; please also perform transbronchial sampling of the right upper lobe centrally located hypermetabolic nodule. Please obtain sufficient sampling for genomic analysis. PDL1 and MCSTP have been pre-requested for these specimens. Note: This is a bronchoscopy listing note only, not a formal pulmonary consult. Therefore, the results of this bronchoscopy will be the responsibility of the referring service: Radiation Oncology. documented in this encounter Plan of Treatment Upcoming Encounters Date Type Department Care Team (Late st Contact Info) Description 09/23/2023 2:00 PM CDT Appointment Department of Radiation Oncology in [address] [address] Elsie Dewey M.D. [address] [place] [phone] 09/24/2023 9:00 AM CDT Appointment Department of Radiation Oncology in [address] [address] Elsie Dewey M.D. [address] [place] [phone] 09/24/2023 9:30 AM CDT Appointment Department of Radiation Oncology in [address] [address] Elsie Dewey M.D. [address] [place] [phone] 09/25/2023 1:00 PM CDT Appointment Department of Radiation Oncology in [address] [address] Elsie Dewey M.D. [address] [place] [phone] 09/26/2023 1:00 PM CDT Appointment Department of Radiation Oncology in [place], [place] [address] [place] [phone] Elsie Dewey M.D. [address] [place] [phone] 09/26/2023 1:15 PM CDT Appointment Department of Radiation Oncology in [address] [address] Elsie Dewey M.D. [address] [place] [phone] Kirsten Bella R.N. [address] [place] [phone] 09/27/2023 1:00 PM CDT Appointment Department of Radiation Oncology in [address] [address] Elsie Dewey M.D. [address] [place] [phone] 09/30/2023 1:00 PM CDT Appointment Department of Radiation Oncology in [address] [address] Elsie Dewey M.D. [address] [place] [phone] 10/01/2023 1:45 PM CDT Appointment Department of Radiation Oncology in [address] [address] Elsie Dewey M.D. [address] [place] [phone] 10/01/2023 2:00 PM CDT Appointment Department of Radiation Oncology in [address] [address] Elsie Dewey M.D. [address] [place] [phone] 10/02/2023 1:00 PM CDT Appointment Department of Radiation Oncology in [address] [address] Elsie Dewey M.D. [address] [place] [phone] 10/03/2023 1:45 PM CDT Appointment Department of Radiation Oncology in [address] [address] Elsie Dewey M.D. [address] [place] [phone] 10/04/2023 1:45 PM CDT Appointment Department of Radiation Oncology in [address] [address] Elsie Dewey M.D. [address] [place] [phone] 10/07/2023 1:45 PM CDT Appointment Department of Radiation Oncology in [address] [address] Elsie Dewey M.D. [address] [place] [phone] 10/08/2023 1:45 PM CDT Appointment Department of Radiation Oncology in [address] [address] Elsie Dewey M.D. [address] [place] [address] 10/08/2023 2:00 PM CDT Appointment Department of Radiation Oncology in [place], [place] [address] [place] [phone] Elsie Dewey M.D. [address] [place] [address] 10/09/2023 1:45 PM CDT Appointment Department of Radiation Oncology in [place], [place] [address] [place] [address] Elsie Dewey M.D. [address] [place] [phone] 10/10/2023 1:45 PM CDT Appointment Department of Radiation Oncology in [place], [place] [address] [place] [address] Elsie Dewey M.D. [address] [place] [phone] 10/11/2023 1:45 PM CDT Appointment Department of Radiation Oncology in [address] [address] Elsie Dewey M.D. [address] [place] [phone] 10/14/2023 1:45 PM CDT Appointment Department of Radiation Oncology in [place], [place] [address] [place] [address] Elsie Dewey M.D. [address] [place] [phone] 10/15/2023 1:45 PM CDT Appointment Department of Radiation Oncology in [place], [place] [address] [place] [phone] Elsie Dewey M.D. [address] [place] [phone] 10/15/2023 2:15 PM CDT Appointment Department of Radiation Oncology in [address] [address] Elsie Dewey M.D. [address] [place] [phone] 10/16/2023 1:45 PM CDT Appointment Department of Radiation Oncology in [address] [address] Elsie Dewey M.D. [address] [place] [phone] 10/17/2023 1:45 PM CDT Appointment Department of Radiation Oncology in [address] [address] Elsie Dewey M.D. [address] [place] [phone] 10/18/2023 1:45 PM CDT Appointment Department of Radiation Oncology in [place], [place] [address] [place] [phone] Elsie Dewey M.D. [address] [place] [phone] 10/21/2023 1:45 PM CDT Appointment Department of Radiation Oncology in [address] [address] Elsie Dewey M.D. [address] [place] [phone] 10/22/2023 1:45 PM CDT Appointment Department of Radiation Oncology in [place], [place] [address] [place] [phone] Elsie Dewey M.D. 200 [place] [address] 10/22/2023 2:00 PM CDT Appointment Department of Radiation Oncology in [place], [place] [address] [place] [phone] Elsie Dewey M.D. [address] [place] [phone] 10/23/2023 1:45 PM CDT Appointment Department of Radiation Oncology in [place], [place] [address] [place] [phone] Elsie Dewey M.D. 200 [place] [address] 10/24/2023 1:45 PM CDT Appointment Department of Radiation Oncology in [address] [address] Elsie Dewey M.D. [address] [place] [phone] 10/25/2023 1:45 PM CDT Appointment Department of Radiation Oncology in [place], [place] [address] [place] [address] Elsie Dewey M.D. [address] [place] [phone] 10/28/2023 1:45 PM CDT Appointment Department of Radiation Oncology in [address] [place] [address] Elsie Dewey M.D. [address] [place] [phone] 10/29/2023 1:45 PM CDT Appointment Department of Radiation Oncology in [place], [place] [address] [place] [address] Elsie Dewey M.D. [address] [place] [phone] 10/29/2023 2:00 PM CDT Appointment Department of Radiation Oncology in [address] [address] Elsie Dewey M.D. [address] [place] [phone] 10/30/2023 1:45 PM CDT Appointment Department of Radiation Oncology in [place], [place] [address] [place] [address] Elsie Dewey M.D. [address] [place] [phone] 10/31/2023 1:45 PM CDT Appointment Department of Radiation Oncology in [place], [place] [address] [place] [address] Elsie Dewey M.D. [address] [place] [phone] 11/01/2023 1:45 PM CDT Appointment Department of Radiation Oncology in [address] [address] Elsie Dewey M.D. [address] [place] [phone] Pending Results Name Type Priority Associated Diagnoses Date /Time [facility] Panel, Next-Generation Sequencing, Tumor Lab Routine Malignant Neoplasm Of Lung Left (HCC) Nodules Pulmonary Multiple Lymphadenopathy Mediastinum Abnormal Positron Emission Tomography Scan 09/05/2023 10:05 AM CDT Scheduled Orders Name Type Priority Associated Diagnoses Orde r Schedule [facility] Solid Tumor Panel, Next-Generation Sequencing, Tumor Lab Add-On Malignant Neoplasm Of Lung Left (HCC) Nodules Pulmonary Multiple Lymphadenopathy Mediastinum Abnormal Positron Emission Tomography Scan Expected: 09/05/2023 (Approximate), Expires: 11/28/2024 documented as of this encounter Results * ECG 12 Lead (09/04/2023 12:32 PM CDT) Ventricular Rate ECG/Min 70 BPM MUSE WI Interval 168 ms MUSE QRSD Interval 74 ms MUSE QT Interval 408 ms MUSE QTC Interval 440 ms MUSE P Mission 81 degrees MUSE R Mission 27 degrees MUSE T Wave Mission 49 degrees MUSE 09/04/2023 12:3 2 PM [...] Pickett APRN, C.N.P., D.N.P. E CG ORDERABLES MUSE NA * Prothrombin Time (PT) (09/04/2023 [...] APRN, C.N.P., D.N.P. L AB BLOOD ADD-ON [facility] [address] [place] [address], [facility] [address] [place] [address] * (ABNORMAL) Comprehensive Metabolic Panel (09/04/2023 12:11 PM CDT) [facility] Potassium, S 4.4 3.6 - 5.2 mmol/L [...] APRN, C.N.P., D.N.P. L AB BLOOD ADD-ON [facility] [address] [place] [address], [facility] [address] [place] [address] * (ABNORMAL) CBC with Differential, Blood (09/04/2023 12:11 PM CDT) Pathologist [facility] Hemoglobin 9.5(L) 11.6 - 15.0 g/dL 09/04/2023 [...] APRN, C.N.P., D.N.P. L AB BLOOD ADD-ON [facility] [address] [place] [address], [facility] DTL [facility] [address] [place] [address] DHPM [facility] [address] [place] [address] * CT Chest without IV Contrast (09/04/2023 [...] APRN, C.N.P., D.N.P. I MG CT PROCEDURES documented in this encounter Visit Diagnoses Diagnosis Malignant Neoplasm Of Lung Left (HCC)- Primary Nodules Pulmonary Multiple Lymphadenopathy Mediastinum Abnormal Positron Emission Tomography Scan Abnormal Finding Of Blood Chemistry Unspecified Stroke Cerebrovascular Accident Personal History Malignant Neoplasm Of Lung Left (HCC) Nodules Pulmonary Multiple Lymphadenopathy Mediastinum Abnormal Positron Emission Tomography Scan documented in this encounter
--- OUTSIDE RECORDS SUMMARY | 2023-09-23 07:08 | XMS_ITS | Encounter Summary ---
Author Name Unknown Organization [facility] Address [address] [place] [address] Care Team Providers Care Vp Customer Service Name Role Phone Unavailable Primary Care Provider Unavailabl e Encounter Details Date Type Department Care Team (Late st Contact Info) Description 08/30/2023 Clinical Communication Department of Radiation Oncology in [place], [place] [address] [place] [phone] Elsie Dewey M.D. [address] [place] [phone] Social History Tobacco Use Types Packs/Day Years [...] declined 10/31/2022 How often do you attend religion or mandaen serv ices? Never 10/31/2022 Do you belong to any clubs o r organizations such as religion groups, unions, fraternal or athletic groups, or [...] and heating? Not hard at all 10/31/2022 [facility] of Occupat ional Health - Occupational Stress [...] place to sleep or slept in a assisted (including now)? No 10/31/2022 Nutrition Answer Date [...] CDT Appointment Department of Radiation Oncology in [place], [place] [address] [place] [address] Elsie Dewey M.D. [address] [place] [phone] 09/24/2023 9:00 AM CDT Appointment Department of Radiation Oncology in [place], [place] [address] [place] [phone] Elsie Dewey M.D. [address] [place] [phone] 09/24/2023 9:30 AM CDT Appointment Department of Radiation Oncology in [address] [address] Elsie Dewey M.D. [address] [place] [phone] 09/25/2023 1:00 PM CDT Appointment Department of Radiation Oncology in [address] [address] Elsie Dewey M.D. [address] [place] [address] 09/26/2023 1:00 PM CDT Appointment Department of Radiation Oncology in [address] [address] Elsie Dewey M.D. [address] [place] [phone] 09/26/2023 1:15 PM CDT Appointment Department of Radiation Oncology in [address] [address] Elsie Dewey M.D. [address] [place] [phone] Kirsten Bella R.N. [address] [place] [phone] 09/27/2023 1:00 PM CDT Appointment Department of Radiation Oncology in [place] [address] [place] [address] Elsie Dewey M.D. [address] [place] [phone] 09/30/2023 1:00 PM CDT Appointment Department of Radiation Oncology in [place], [place] [address] [place] [address] Elsie Dewey M.D. [address] [place] [phone] 10/01/2023 1:45 PM CDT Appointment Department of Radiation Oncology in [address] [address] Elsie Dewey M.D. [address] [place] [phone] 10/01/2023 2:00 PM CDT Appointment Department of Radiation Oncology in [address] [address] Elsie Dewey M.D. [address] [place] [address] 10/02/2023 1:00 PM CDT Appointment Department of Radiation Oncology in [place], [place] [address] [place] [address] Elsie Dewey M.D. [address] [place] [phone] 10/03/2023 1:45 PM CDT Appointment Department of Radiation Oncology in [address] [address] Elsie Dewey M.D. [address] [place] [phone] 10/04/2023 1:45 PM CDT Appointment Department of Radiation Oncology in [address] [address] Elsie Dewey M.D. [address] [place] [phone] 10/07/2023 1:45 PM CDT Appointment Department of Radiation Oncology in [address] [address] Elsie Dewey M.D. [address] [place] [address] 10/08/2023 1:45 PM CDT Appointment Department of Radiation Oncology in [address] [address] Elsie Dewey M.D. [address] [place] [phone] 10/08/2023 2:00 PM CDT Appointment Department of Radiation Oncology in [address] [address] Elsie Dewey M.D. [address] [place] [phone] 10/09/2023 1:45 PM CDT Appointment Department of Radiation Oncology in [address] [address] Elsie Dewey M.D. [address] [place] [phone] 10/10/2023 1:45 PM CDT Appointment Department of Radiation Oncology in [address] [address] Elsie Dewey M.D. [address] [place] [address] 10/11/2023 1:45 PM CDT Appointment Department of Radiation Oncology in [place], [place] [address] [place] [address] Elsie Dewey M.D. [address] [place] [phone] 10/14/2023 1:45 PM CDT Appointment Department of Radiation Oncology in [place], [place] [address] [place] [address] Elsie Dewey M.D. [address] [place] [address] 10/15/2023 1:45 PM CDT Appointment Department of Radiation Oncology in [place], [place] [address] [place] [address] Elsie Dewey M.D. [address] [place] [phone] 10/15/2023 2:15 PM CDT Appointment Department of Radiation Oncology in [place], [place] [address] [place] [address] Elsie Dewey M.D. [address] [place] [address] 10/16/2023 1:45 PM CDT Appointment Department of Radiation Oncology in [address] [address] Elsie Dewey M.D. [address] [place] [phone] 10/17/2023 1:45 PM CDT Appointment Department of Radiation Oncology in [place], [place] [address] [place] [address] Elsie Dewey M.D. [address] [place] [address] 10/18/2023 1:45 PM CDT Appointment Department of Radiation Oncology in [address] [address] Elsie Dewey M.D. [address] [place] [phone] 10/21/2023 1:45 PM CDT Appointment Department of Radiation Oncology in [address] [address] Elsie Dewey M.D. [address] [place] [phone] 10/22/2023 1:45 PM CDT Appointment Department of Radiation Oncology in [address] [address] Elsie Dewey M.D. [address] [place] [address] 10/22/2023 2:00 PM CDT Appointment Department of Radiation Oncology in [address] [address] Elsie Dewey M.D. [address] [place] [phone] 10/23/2023 1:45 PM CDT Appointment Department of Radiation Oncology in [address] [address] Elsie Dewey M.D. [address] [place] [address] 10/24/2023 1:45 PM CDT Appointment Department of Radiation Oncology in [place], [place] [address] [place] [address] Elsie Dewey M.D. [address] [place] [phone] 10/25/2023 1:45 PM CDT Appointment Department of Radiation Oncology in [place], [place] [address] [place] [address] Elsie Dewey M.D. [address] [place] [address] 10/28/2023 1:45 PM CDT Appointment Department of Radiation Oncology in [place], [place] [address] [place] [address] Elsie Dewey M.D. [address] [place] [phone] 10/29/2023 1:45 PM CDT Appointment Department of Radiation Oncology in [place], [place] [address] [place] [address] Elsie Dewey M.D. [address] [place] [phone] 10/29/2023 2:00 PM CDT Appointment Department of Radiation Oncology in [place], [place] [address] [place] [address] Elsie Dewey M.D. [address] [place] [address] 10/30/2023 1:45 PM CDT Appointment Department of Radiation Oncology in [place], [place] [address] [place] [address] Elsie Dewey M.D. [address] [place] [address] 10/31/2023 1:45 PM CDT Appointment Department of Radiation Oncology in [place], [place] [address] [place] [address] Elsie Dewey M.D. [address] [place] [phone] 11/01/2023 1:45 PM CDT Appointment Department of Radiation Oncology in [place], [place] [address] [place] [address] Elsie Dewey M.D. [address] [place] [address] documented as of this encounter Visit Diagnoses Not on filedocumented in this encounter
--- OUTSIDE RECORDS SUMMARY | 2023-09-23 07:08 | XMS_ITS | Encounter Summary ---
Author Name Unknown Organization [facility] Address [address] [place] [address] Care Team Providers Care Forger Helper Name Role Phone Unavailable Primary Care Provider Unavailabl e Reason for Referral * Outpatient (Routine) - Closed Specialty Diagnoses / Procedures Referred By Ervin frye Referred To Contact Radiation Oncology Danielle Glover P.A.-C., M.S. [address] [place] [phone] Elsie Dewey M.D. [address] [place] [phone] Referral ID Status Reason Start Date Expiration Date Visits Re quested Visits Authorized [id number] Closed 08/27/2023 02/25/2025 1 1 Encounter Details Date Type Department Care Team (Late st Contact Info) Description 08/27/2023 Orders Only Department of Radiation Oncology in [place], [place] [address] [place] [address] Danielle Glover P.A.-C., M.S. [address] [place] [phone] Social History Tobacco Use Types Packs/Day Years [...] declined 10/31/2022 How often do you attend orthodox or alevism serv ices? Never 10/31/2022 Do you belong to any clubs o r organizations such as orthodox groups, unions, fraternal or athletic groups, or [...] and heating? Not hard at all 10/31/2022 [facility] of Occupat ional Health - Occupational Stress [...] place to sleep or slept in a long-term (including now)? No 10/31/2022 Nutrition Answer Date [...] CDT Appointment Department of Radiation Oncology in [address] [address] Elsie Dewey M.D. [address] [place] [phone] 09/24/2023 9:00 AM CDT Appointment Department of Radiation Oncology in [address] [address] Elsie Dewey M.D. [address] [place] [phone] 09/24/2023 9:30 AM CDT Appointment Department of Radiation Oncology in [address] [address] Elsie Dewey M.D. [address] [place] [phone] 09/25/2023 1:00 PM CDT Appointment Department of Radiation Oncology in [address] [address] Elsie Dewey M.D. [address] [place] [phone] 09/26/2023 1:00 PM CDT Appointment Department of Radiation Oncology in [address] [address] Elsie Dewey M.D. [address] [place] [phone] 09/26/2023 1:15 PM CDT Appointment Department of Radiation Oncology in [place], [place] [address] [place] [address] Elsie Dewey M.D. [address] [place] [phone] Kirsten Bella R.N. [address] [place] [phone] 09/27/2023 1:00 PM CDT Appointment Department of Radiation Oncology in [address] [address] Elsie Dewey M.D. [address] [place] [phone] 09/30/2023 1:00 PM CDT Appointment Department of Radiation Oncology in [address] [address] Elsie Dewey M.D. [address] [place] [phone] 10/01/2023 1:45 PM CDT Appointment Department of Radiation Oncology in [address] [address] Elsie Dewey M.D. [address] [place] [phone] 10/01/2023 2:00 PM CDT Appointment Department of Radiation Oncology in [address] [address] Elsie Dewey M.D. [address] [place] [address] 10/02/2023 1:00 PM CDT Appointment Department of Radiation Oncology in [place], [place] [address] [place] [address] Elsie Dewey M.D. 200 [place] [address] 10/03/2023 1:45 PM CDT Appointment Department of Radiation Oncology in [place], [place] [address] [place] [phone] Elsie Dewey M.D. [address] [place] [address] 10/04/2023 1:45 PM CDT Appointment Department of Radiation Oncology in [place], [place] [address] [place] [address] Elsie Dewey M.D. 200 [place] [address] 10/07/2023 1:45 PM CDT Appointment Department of Radiation Oncology in [address] [address] Elsie Dewey M.D. [address] [place] [phone] 10/08/2023 1:45 PM CDT Appointment Department of Radiation Oncology in [place], [place] [address] [place] [address] Elsie Dewey M.D. [address] [place] [phone] 10/08/2023 2:00 PM CDT Appointment Department of Radiation Oncology in [place] [address] [place] [address] Elsie Dewey M.D. [address] [place] [phone] 10/09/2023 1:45 PM CDT Appointment Department of Radiation Oncology in [place], [place] [address] [place] [address] Elsie Dewey M.D. [address] [place] [address] 10/10/2023 1:45 PM CDT Appointment Department of Radiation Oncology in [address] [address] Elsie Dewey M.D. [address] [place] [address] 10/11/2023 1:45 PM CDT Appointment Department of Radiation Oncology in [place], [place] [address] [place] [address] Elsie Dewey M.D. [address] [place] [phone] 10/14/2023 1:45 PM CDT Appointment Department of Radiation Oncology in [place], [place] [address] [place] [address] Elsie Dewey M.D. [address] [place] [phone] 10/15/2023 1:45 PM CDT Appointment Department of Radiation Oncology in [address] [address] Elsie Dewey M.D. [address] [place] [phone] 10/15/2023 2:15 PM CDT Appointment Department of Radiation Oncology in [address] [address] Elsie Dewey M.D. [address] [place] [phone] 10/16/2023 1:45 PM CDT Appointment Department of Radiation Oncology in [address] [address] Elsie Dewey M.D. [address] [place] [phone] 10/17/2023 1:45 PM CDT Appointment Department of Radiation Oncology in [address] [address] Elsie Dewey M.D. [address] [place] [phone] 10/18/2023 1:45 PM CDT Appointment Department of Radiation Oncology in [address] [address] Elsie Dewey M.D. [address] [place] [phone] 10/21/2023 1:45 PM CDT Appointment Department of Radiation Oncology in [address] [address] Elsie Dewey M.D. [address] [place] [phone] 10/22/2023 1:45 PM CDT Appointment Department of Radiation Oncology in [address] [address] Elsie Dewey M.D. [address] [place] [address] 10/22/2023 2:00 PM CDT Appointment Department of Radiation Oncology in [place], [place] [address] [place] [address] Elsie Dewey M.D. [address] [place] [address] 10/23/2023 1:45 PM CDT Appointment Department of Radiation Oncology in [place], [place] [address] [place] [address] Elsie Dewey M.D. [address] [place] [address] 10/24/2023 1:45 PM CDT Appointment Department of Radiation Oncology in [place], [place] [address] [place] [address] Elsie Dewey M.D. [address] [place] [phone] 10/25/2023 1:45 PM CDT Appointment Department of Radiation Oncology in [place], [place] [address] [place] [address] Elsie Dewey M.D. 200 [place] [address] 10/28/2023 1:45 PM CDT Appointment Department of Radiation Oncology in [address] [address] Elsie Dewey M.D. [address] [place] [phone] 10/29/2023 1:45 PM CDT Appointment Department of Radiation Oncology in [place], [place] [address] [place] [address] Elsie Dewey M.D. [address] [place] [phone] 10/29/2023 2:00 PM CDT Appointment Department of Radiation Oncology in [address] [address] Elsie Dewey M.D. [address] [place] [phone] 10/30/2023 1:45 PM CDT Appointment Department of Radiation Oncology in [address] [address] Elsie Dewey M.D. [address] [place] [phone] 10/31/2023 1:45 PM CDT Appointment Department of Radiation Oncology in [address] [address] Elsie Dewey M.D. [address] [place] [phone] 11/01/2023 1:45 PM CDT Appointment Department of Radiation Oncology in [address] [address] Elsie Dewey M.D. [address] [place] [phone] Scheduled Referrals Name Type Priority Associated Diagnoses Orde r Schedule Radiation Oncology office visit (clinic) Outpatient Referral Routine Expected: 08/27/2023 (Approximate), Expires: 11/26/2024 documented as of this encounter Visit Diagnoses Not on filedocumented in this encounter
--- OUTSIDE RECORDS SUMMARY | 2023-09-23 07:08 | XMS_ITS | Encounter Summary ---
Author Name Unknown Organization [facility] Address [address] [place] [address] Care Team Providers Care Peanut Grader Name Role Phone Unavailable Primary Care Provider Unavailabl e Reason for Referral * MRI/CAT/PET Scan (Routine) - Closed Specialty Diagnoses / Procedures Referred By Ervin frye Referred To Contact Radiology Diagnoses Malignant Neoplasm Of Lung Left (HCC) Nodules Pulmonary Multiple Lymphadenopathy Mediastinum Abnormal Positron Emission Tomography Scan Procedures CT Chest without IV Contrast Nilo Pickett APRN, C.N.P., D.N.P. [address] [place] [phone] [facility] Referral ID Status Reason Start Date Expiration Date Visits Re quested Visits Authorized [id number] Closed 08/29/2023 08/28/2024 1 1 Reason for Visit * MRI/CAT/PET Scan (Routine) - Closed Specialty Diagnoses / Procedures Referred By Ervin frye Referred To Contact Radiology Diagnoses Malignant Neoplasm Of Lung Left (HCC) Nodules Pulmonary Multiple Lymphadenopathy Mediastinum Abnormal Positron Emission Tomography Scan Procedures CT Chest without IV Contrast Nilo Pickett APRN, C.N.P., D.N.P. [address] [place] [phone] [facility] Referral ID Status Reason Start Date Expiration Date Visits Re quested Visits Authorized [id number] Closed 08/29/2023 08/28/2024 1 1 Encounter Details Date Type Department Care Team (Latest Contact Info) Description 09/04/2023 10:55 AM CDT - 09/04/2023 11:58 AM CDT Hospital Encounter [facility] [place], [place] [address] [place] [address] Nilo Pickett APRN, C.N.P., D.N.P. [address] [place] [address] Malignant Neoplasm Of Lung Left (HCC); Nodules [...] often do you attend roman catholic or methodist serv ices? Never 10/31/2022 Do you belong [...] and heating? Not hard at all 10/31/2022 [facility] of Occupat ional Health - Occupational Stress [...] CDT Appointment Department of Radiation Oncology in [address] [address] Elsie Dewey M.D. [address] [place] [address] 09/24/2023 9:00 AM CDT Appointment Department of Radiation Oncology in [address] [address] Elsie Dewey M.D. [address] [place] [address] 09/24/2023 9:30 AM CDT Appointment Department of Radiation Oncology in [address] [address] Elsie Dewey M.D. [address] [place] [phone] 09/25/2023 1:00 PM CDT Appointment Department of Radiation Oncology in [address] [address] Elsie Dewey M.D. [address] [place] [address] 09/26/2023 1:00 PM CDT Appointment Department of Radiation Oncology in [address] [address] Elsie Dewey M.D. [address] [place] [address] 09/26/2023 1:15 PM CDT Appointment Department of Radiation Oncology in [place], [place] [address] [place] [address] Elsie Dewey M.D. [address] [place] [address] Kirsten Bella R.N. [address] [place] [address] 09/27/2023 1:00 PM CDT Appointment Department of Radiation Oncology in [address] [address] Elsie Dewey M.D. [address] [place] [address] 09/30/2023 1:00 PM CDT Appointment Department of Radiation Oncology in [place], [place] [address] [place] [address] Elsie Dewey M.D. [address] [place] [address] 10/01/2023 1:45 PM CDT Appointment Department of Radiation Oncology in [address] [address] Elsie Dewey M.D. [address] [place] [address] 10/01/2023 2:00 PM CDT Appointment Department of Radiation Oncology in [address] [address] Elsie Dewey M.D. [address] [place] [address] 10/02/2023 1:00 PM CDT Appointment Department of Radiation Oncology in [place], [place] [address] [place] [address] Elsie Dewey M.D. [address] [place] [address] 10/03/2023 1:45 PM CDT Appointment Department of Radiation Oncology in [place], [place] [address] [place] [address] Elsie Dewey M.D. [address] [place] [address] 10/04/2023 1:45 PM CDT Appointment Department of Radiation Oncology in [place], [place] [address] [place] [address] Elsie Dewey M.D. [address] [place] [address] 10/07/2023 1:45 PM CDT Appointment Department of Radiation Oncology in [place], [place] [address] [place] [phone] Elsie Dewey M.D. [address] [place] [address] 10/08/2023 1:45 PM CDT Appointment Department of Radiation Oncology in [place], [place] [address] [place] [address] Elsie Dewey M.D. [address] [place] [address] 10/08/2023 2:00 PM CDT Appointment Department of Radiation Oncology in [place], [place] [address] [place] [address] Elsie Dewey M.D. [address] [place] [address] 10/09/2023 1:45 PM CDT Appointment Department of Radiation Oncology in [address] [address] Elsie Dewey M.D. [address] [place] [address] 10/10/2023 1:45 PM CDT Appointment Department of Radiation Oncology in [address] [address] Elsie Dewey M.D. [address] [place] [address] 10/11/2023 1:45 PM CDT Appointment Department of Radiation Oncology in [address] [address] Elsie Dewey M.D. [address] [place] [address] 10/14/2023 1:45 PM CDT Appointment Department of Radiation Oncology in [address] [address] Elsie Dewey M.D. [address] [place] [address] 10/15/2023 1:45 PM CDT Appointment Department of Radiation Oncology in [address] [address] Elsie Dewey M.D. [address] [place] [address] 10/15/2023 2:15 PM CDT Appointment Department of Radiation Oncology in [place], [place] [address] [place] [address] Elsie Dewey M.D. 200 [place] [address] 10/16/2023 1:45 PM CDT Appointment Department of Radiation Oncology in [place], [place] [address] [place] [address] Elsie Dewey M.D. [address] [place] [address] 10/17/2023 1:45 PM CDT Appointment Department of Radiation Oncology in [place], [place] [address] [place] [address] Elsie Dewey M.D. [address] [place] [address] 10/18/2023 1:45 PM CDT Appointment Department of Radiation Oncology in [place], [place] [address] [place] [address] Elsie Dewey M.D. [address] [place] [address] 10/21/2023 1:45 PM CDT Appointment Department of Radiation Oncology in [place], [place] [address] [place] [address] Elsie Dewey M.D. [address] [place] [address] 10/22/2023 1:45 PM CDT Appointment Department of Radiation Oncology in [place], [place] [address] [place] [address] Elsie Dewey M.D. [address] [place] [address] 10/22/2023 2:00 PM CDT Appointment Department of Radiation Oncology in [place], [place] [address] [place] [address] Elsie Dewey M.D. [address] [place] [address] 10/23/2023 1:45 PM CDT Appointment Department of Radiation Oncology in [address] [address] Elsie Dewey M.D. [address] [place] [address] 10/24/2023 1:45 PM CDT Appointment Department of Radiation Oncology in [place], [place] [address] [place] [address] Elsie Dewey M.D. [address] [place] [address] 10/25/2023 1:45 PM CDT Appointment Department of Radiation Oncology in [place], [place] [address] [place] [address] Elsie Dewey M.D. [address] [place] [phone] 10/28/2023 1:45 PM CDT Appointment Department of Radiation Oncology in [address] [address] Elsie Dewey M.D. [address] [place] [address] 10/29/2023 1:45 PM CDT Appointment Department of Radiation Oncology in [address] [address] Elsie Dewey M.D. [address] [place] [phone] 10/29/2023 2:00 PM CDT Appointment Department of Radiation Oncology in [address] [address] Elsie Dewey M.D. [address] [place] [address] 10/30/2023 1:45 PM CDT Appointment Department of Radiation Oncology in [address] [address] Elsie Dewey M.D. [address] [place] [phone] 10/31/2023 1:45 PM CDT Appointment Department of Radiation Oncology in [address] [address] Elsie Dewey M.D. [address] [place] [address] 11/01/2023 1:45 PM CDT Appointment Department of Radiation Oncology in [address] [address] Elsie Dewey M.D. [address] [place] [phone] documented as of this encounter Procedures Procedure Name Priority Date/Time Associated Diagnosis Comments CT CHEST WITHOUT IV CONTRAST RAD - Routine (most inpatients and all outpatients) 09/04/2023 11:56 AM CDT Malignant Neoplasm Of Lung Left (HCC) Nodules Pulmonary Multiple Lymphadenopathy Mediastinum Abnormal Positron Emission Tomography Scan documented in this encounter Results * CT Chest without IV Contrast (09/04/2023 [...] APRN C.N.P., D.N.P. I MG CT PROCEDURES documented in this encounter Visit Diagnoses Diagnosis Malignant Neoplasm Of Lung Left (HCC) Nodules Pulmonary Multiple Lymphadenopathy Mediastinum Abnormal Positron Emission Tomography Scan documented in this encounter
--- OUTSIDE RECORDS SUMMARY | 2023-09-23 07:08 | XMS_ITS | Encounter Summary ---
Author Name Unknown Organization [facility] Address [address] [place] [address] Care Team Providers Care Air Hose Coupler Name Role Phone Unavailable Primary Care Provider Unavailabl e Encounter Details Date Type Department Care Team (Late st Contact Info) Description 07/30/2023 Tumor Board Conference Department of Radiation Oncology in [place], [place] [address] [place] [phone] Elsie Dewey M.D. [address] [place] [phone] Social History Tobacco Use Types Packs/Day Years [...] How often do you attend cheondoism or uatsdin serv ices? Never 10/31/2022 Do you belong [...] and heating? Not hard at all 10/31/2022 [facility] - Occupational Stress Questionnaire Answer Date [...] place to sleep or slept in a custodial (including now)? No 10/31/2022 Nutrition Answer Date [...] Board Note - Elsie Dewey M.D. - 07/30/2023 3:43 PM CST MULTIDISCIPLINARY TUMOR BOARD NOTE This patient's case was presented at our multidisciplinary tumor board on 07/30/2023 by Elsie Dewey. Diagnosis: Multifocal lung cancer Stage: Medically inoperable early lung cancers, multifocal Imaging reviewed: yes, CT chest from [address] chest from 11/01/2022 Pathology reviewed: n/a Discussion: We reviewed her last two CT scans that show progression of some of the lesions. We understand that the CT was done due to back pain. Recommendation: We discussed obtaining a PET/CT and then biopsy for either chemotherapy, chemo/immunotherapy or radiation pending the results. Elsie Dewey M.D. Note: Tumor board recommendations are developed via multidisciplinary specialty participation with the most current information available at that time, therefore, final treatment plan is to be decided between the patient and the treating physician. SUPERVISOR documented in this encounter Plan of Treatment Upcoming Encounters Date Type Department Care Team (Late st Contact Info) Description 09/23/2023 2:00 PM CDT Appointment Department of Radiation Oncology in [address] [phone] Elsie Dewey M.D. [address] [place] [address] 09/24/2023 9:00 AM CDT Appointment Department of Radiation Oncology in [address] [address] Elsie Dewey M.D. [address] [place] [address] 09/24/2023 9:30 AM CDT Appointment Department of Radiation Oncology in [address] [address] Elsie Dewey M.D. [address] [place] [address] 09/25/2023 1:00 PM CDT Appointment Department of Radiation Oncology in [address] [address] Elsie Dewey M.D. [address] [place] [address] 09/26/2023 1:00 PM CDT Appointment Department of Radiation Oncology in [place], [place] [address] [place] [address] Elsie Dewey M.D. [address] [place] [address] 09/26/2023 1:15 PM CDT Appointment Department of Radiation Oncology in [place], [place] [address] [place] [address] Elsie Dewey M.D. [address] [place] [address] Kirsten Bella R.N. [address] [place] [phone] 09/27/2023 1:00 PM CDT Appointment Department of Radiation Oncology in [address] [address] Elsie Dewey M.D. [address] [place] [address] 09/30/2023 1:00 PM CDT Appointment Department of Radiation Oncology in [place], [place] [address] [place] [phone] Elsie Dewey M.D. [address] [place] [address] 10/01/2023 1:45 PM CDT Appointment Department of Radiation Oncology in [address] [address] Elsie Dewey M.D. [address] [place] [address] 10/01/2023 2:00 PM CDT Appointment Department of Radiation Oncology in [place], [place] [address] [place] [address] Elsie Dewey M.D. [address] [place] [address] 10/02/2023 1:00 PM CDT Appointment Department of Radiation Oncology in [address] [address] Elsie Dewey M.D. [address] [place] [address] 10/03/2023 1:45 PM CDT Appointment Department of Radiation Oncology in [address] [address] Elsie Dewey M.D. [address] [place] [address] 10/04/2023 1:45 PM CDT Appointment Department of Radiation Oncology in [address] [address] Elsie Dewye M.D. [address] [place] [address] 10/07/2023 1:45 PM CDT Appointment Department of Radiation Oncology in [address] [address] Elsie Dewey M.D. [address] [place] [address] 10/08/2023 1:45 PM CDT Appointment Department of Radiation Oncology in [address] [address] Elsie Dewey M.D. [address] [place] [address] 10/08/2023 2:00 PM CDT Appointment Department of Radiation Oncology in [place], [place] [address] [place] [address] Elsie Dewey M.D. [address] [place] [address] 10/09/2023 1:45 PM CDT Appointment Department of Radiation Oncology in [place], [place] [address] [place] [address] Elsie Dewey M.D. [address] [place] [address] 10/10/2023 1:45 PM CDT Appointment Department of Radiation Oncology in [place], [place] [address] [place] [phone] Elsie Dewey M.D. [address] [place] [address] 10/11/2023 1:45 PM CDT Appointment Department of Radiation Oncology in [place], [place] [address] [place] [phone] Elsie Dewey M.D. [address] [place] [address] 10/14/2023 1:45 PM CDT Appointment Department of Radiation Oncology in [place], [place] [address] [place] [address] Elsie Dewey M.D. [address] [place] [address] 10/15/2023 1:45 PM CDT Appointment Department of Radiation Oncology in [place], [place] [address] [place] [address] Elsie Dewey M.D. [address] [place] [address] 10/15/2023 2:15 PM CDT Appointment Department of Radiation Oncology in [place], [place] [address] [place] [address] Elsie Dewey M.D. [address] [place] [address] 10/16/2023 1:45 PM CDT Appointment Department of Radiation Oncology in [address] [address] Elsie Dewey M.D. [address] [place] [address] 10/17/2023 1:45 PM CDT Appointment Department of Radiation Oncology in [place], [place] [address] [place] [phone] Elsie Dewey M.D. [address] [place] [phone] 10/18/2023 1:45 PM CDT Appointment Department of Radiation Oncology in [address] [address] Elsie Dewey M.D. [address] [place] [phone] 10/21/2023 1:45 PM CDT Appointment Department of Radiation Oncology in [address] [address] Elsie Dewey M.D. [address] [place] [phone] 10/22/2023 1:45 PM CDT Appointment Department of Radiation Oncology in [place], [place] [address] [place] [address] Elsie Dewey M.D. [address] [place] [address] 10/22/2023 2:00 PM CDT Appointment Department of Radiation Oncology in [place], [place] [address] [place] [phone] Elsie Dewey M.D. [address] [place] [address] 10/23/2023 1:45 PM CDT Appointment Department of Radiation Oncology in [place], [place] [address] [place] [address] Elsie Dewey M.D. [address] [place] [address] 10/24/2023 1:45 PM CDT Appointment Department of Radiation Oncology in [place], [place] [address] [place] [address] Elsie Dewey M.D. [address] [place] [address] 10/25/2023 1:45 PM CDT Appointment Department of Radiation Oncology in [place], [place] [address] [place] [address] Elsie Dewey M.D. [address] [place] [address] 10/28/2023 1:45 PM CDT Appointment Department of Radiation Oncology in [place], [place] [address] [place] [address] Elsie Dewey M.D. [address] [place] [address] 10/29/2023 1:45 PM CDT Appointment Department of Radiation Oncology in [address] [address] Elsie Dewey M.D. [address] [place] [address] 10/29/2023 2:00 PM CDT Appointment Department of Radiation Oncology in [address] [address] Elsie Dewey M.D. [address] [place] [address] 10/30/2023 1:45 PM CDT Appointment Department of Radiation Oncology in [address] [address] Elsie Dewey M.D. [address] [place] [address] 10/31/2023 1:45 PM CDT Appointment Department of Radiation Oncology in [address] [address] Elsie Dewey M.D. [address] [place] [address] 11/01/2023 1:45 PM CDT Appointment Department of Radiation Oncology in [address] [address] Elsie Dewey M.D. [address] [place] [address] documented as of this encounter Visit Diagnoses Not on filedocumented in this encounter
--- OUTSIDE RECORDS SUMMARY | 2023-09-23 07:08 | XMS_ITS | Encounter Summary ---
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 [address] [place] [address] Referral ID Status Reason Start Date Expiration Date Visits Re quested Visits Authorized [id number] Closed 07/29/2023 07/28/2024 1 1 Encounter Details Date Type Department Care Team (Latest Contact Info) Description 07/30/2023 2:54 PM SALES ENGINEER [employer] - 07/30/2023 4:35 PM [facility] Hospital Encounter Department of Radiation Oncology in [place], [place] [address] [place] [phone] Elsie Dewey M.D. [address] [place] [address] Malignant Neoplasm Of Lung Left (HCC) (Primary Dx) Social History Tobacco Use [...] declined 10/31/2022 How often do you attend voodoo or denominational serv ices? Never 10/31/2022 Do you belong to any clubs o r organizations such as voodoo groups, unions, fraternal or athletic groups, or [...] and heating? Not hard at all 10/31/2022 [facility] - Occupational [...] Sign Reading Time Taken Comments Blood Pressure 154/73 07/30/2023 3:04 PM SALES ENGINEER [employer] Pulse 105 07/30/2023 3:04 PM SALES ENGINE[employer] Temperature 35.8 ??C (96.4 ??F) 07/30/2023 3:04 PM CS T Respiratory Rate - - Oxygen Saturation - - Inhaled Oxygen Concentration - - Weight 57.7 kg (127 lb 3.3 oz) 07/30/2023 3:04 P M SALES ENGINEER [employer] Height - - Body Mass Index 23.17 11/19/2014 2:51 PM CDT documented in this [...] Progress Notes * Elsie Dewey M.D. - 07/30/2023 3:00 PM CST RADIATION ONCOLOGY FOLLOW-UP NOTE SUBJECTIVE REFERRAL SOURCE Established patient DIAGNOSIS 1. Multifocal lung cancer, progressing nodules 2. Medically inoperable lung cancer, s/p SBRT 2014 CHIEF COMPLAINT/REASON FOR VISIT Mrs. Anila Henderson is a 73-year-old female [...] Heart, for regular follow-up and imaging if clincally needed. She returns now after having back pain and undergoing a CT chest that show progression of some of the known lung nodules. Her oncologic history is as follows: 1. [...] with the two right lower nodules likely liability claims representative of low-grade adenocarcinoma. 14. April 22, [...] perform a DLCO. 21. 2023: CT chest shows the following: Addendum: The chest CT from July 10 [...] lobe on image 64 currently measures 1.2 x2.7 cm and appears stable compared to the prior exam. 5. These findings are concerning for metastatic disease. Consider PET-CT for further evaluation. Remainder of the exam is stable compared to the prior study. 22. July 30, 2023: Her case was reviewed at daily lung tumor board. Recommendation was to consider PET/CT, biopsy and chemo,chemo/immunotherapy or radiation. INTERVAL HISTORY: Since I last saw Mrs. Anila Henderson she reports that in her breathing improved after being placed on Trelegy inhaler, but she still has a chronic cough. She notes no hemoptysis. She states that in May she developed severe upper left sided back pain. It was not like the back pain she had after radiation in 2014. She states that she was found to have scoliosis and a started using a brace for a couple hours a day and noticing her posture more. The pain has now improved and is almost gone. She notes no other back or bone pain. She denies headache, nausea/vomiting, lumps or masses. She remains active going out with her friends. PATIENT REPORTED SYMPTOM SCREEN FATIGUE (Scale: 0 = no fatigue; 10 = worst fatigue you can imagine):6 PAIN (Scale: 0 = no pain; 10 = worst pain you can imagine): 1 OVERALL QUALITY OF LIFE (Scale: 0 = as bad as can be; 10 = as good as can be):9 OBJECTIVE BP 154/73 (BP Location: Right arm, Patient Position: Sitting, Cuff Size: Regular) Pulse 105 Temp (!) 35.8 ??C (Temporal) Wt 57.7 kg BMI 23.17 kg/m?? General: Mrs. Anila Henderson is a well-developed, well-nourished woman. she is seated in the examination room in no acute distress. ECO - asymptomatic. HEENT: Mucous membranes are pink and intact. No oral lesions. No palpable masses. Good opening of mouth. Good movement of tongue. Lymph: There is no cervical or supraclavicular lymphadenopathy. Cardiovascular: Heart rhythm with regular rate. Lungs: Lung keenan are clear to auscultation throughout. No adventitious lung sounds. Abdomen: Soft, non-tender and non-distended. Musculoskeletal: No pain to palpation along the spine. DIAGNOSTICS I have reviewed the available imaging, operative and pathology reports as described above and reviewed in the EMR. ASSESSMENT / PLAN #1 RUL nodule, moderate progression #2 Right lower lobe lesion, mild progression #3 Stable AMANDA and upper RLL lesions #4 Medically inoperable left lower lobe cancer, not biopsy proven, treated with SBRT in March 2015 #5 Multiple pulmonary nodules, suspicious for multiple synchronous early lung cancers I reviewed the above findings with Mrs. Henderson and her . We reviewed her imaging together. The right upper lung nodule has progressed quite a bit and is larger and more solid. The right lower lung nodule also has had some mild progression, but the other three lesions look fairly stable to me. I don't see any obvious metastatic disease and her back pain has improved. So, I think she still has multifocal lung cancer. We discussed the tumor board recommendation which was for a PET/CT as our next step, if she is willing to accept some treatment. At this time, she is more willing to consider it given the change in the RUL nodule/cancer. I will get this at [facility] and then see her back for further discussion. We discussed the possibility of a biopsy (endobronchially to target more than 1 lesion) and then pending those results to consider either chemotherapy to treat all the lesions or SBRT to the dominantmore rapidly changing lesion. Of course, we also discussed the option of continuing to observe her or going back to supportive care only for symptoms. I will see her back after her PET/CT for further discussion. Their questions were answered; they were comfortable with this plan. Mrs. Anila Henderson knows to contact us at any point should any questions or concerns arise. My thanks to for the opportunity to participate in this patient's care. EDUCATION: Ready to learn, no apparent learning barriers were identified; learning preferences include listening. Explained diagnosis and treatment plan; patient expressed understanding of the content. I personally spent 45 minutes in care of the patient today. Time includes both non face to face andface to face patient care. Signed by: Elsie Dewey M.D. 07/30/2023 4:27 PM SALES ENGINEER [employer] Radiation Oncology [facility] [address] [place] [phone] S ENGINEER [employer] documented in this encounter Plan of Treatment Upcoming Encounters Date Type Department Care Team (Late st Contact Info) Description 09/23/2023 2:00 PM CDT Appointment Department of Radiation Oncology in [address] [address] Elsie Dewey M.D. [address] [place] [address] 09/24/2023 9:00 AM CDT Appointment Department of Radiation Oncology in [address] [address] Elsie Dewey M.D. [address] [place] [address] 09/24/2023 9:30 AM CDT Appointment Department of Radiation Oncology in [address] [address] Elsie Dewey M.D. [address] [place] [address] 09/25/2023 1:00 PM CDT Appointment Department of Radiation Oncology in [address] [address] Elsie Dewey M.D. [address] [place] [address] 09/26/2023 1:00 PM CDT Appointment Department of Radiation Oncology in [place], [place] [address] [place] [address] Elsie Dewey M.D. [address] [place] [address] 09/26/2023 1:15 PM CDT Appointment Department of Radiation Oncology in [place], [place] [address] [place] [address] Elsie Dewey M.D. [address] [place] [address] Kirsten Bella R.N. [address] [place] [address] 09/27/2023 1:00 PM CDT Appointment Department of Radiation Oncology in [address] [address] Elsie Dewey M.D. [address] [place] [address] 09/30/2023 1:00 PM CDT Appointment Department of Radiation Oncology in [address] [address] Elsie Dewey M.D. [address] [place] [address] 10/01/2023 1:45 PM CDT Appointment Department of Radiation Oncology in [address] [address] Elsie Dewey M.D. [address] [place] [address] 10/01/2023 2:00 PM CDT Appointment Department of Radiation Oncology in [address] [address] Elsie Dewey M.D. [address] [place] [address] 10/02/2023 1:00 PM CDT Appointment Department of Radiation Oncology in [place], [place] [address] [place] [address] Elsie Dewey M.D. [address] [place] [address] 10/03/2023 1:45 PM CDT Appointment Department of Radiation Oncology in [place], [place] [address] [place] [address] Elsie Dewey M.D. [address] [place] [address] 10/04/2023 1:45 PM CDT Appointment Department of Radiation Oncology in [place], [place] [address] [place] [address] Elsie Dewey M.D. [address] [place] [address] 10/07/2023 1:45 PM CDT Appointment Department of Radiation Oncology in [place], [place] [address] [place] [address] Elsie Dewey M.D. [address] [place] [address] 10/08/2023 1:45 PM CDT Appointment Department of Radiation Oncology in [address] [address] Elsie Dewey M.D. [address] [place] [address] 10/08/2023 2:00 PM CDT Appointment Department of Radiation Oncology in [place], [place] [address] [place] [address] Elsie Dewey M.D. [address] [place] [address] 10/09/2023 1:45 PM CDT Appointment Department of Radiation Oncology in [place], [place] [address] [place] [address] Elsie Dewey M.D. [address] [place] [address] 10/10/2023 1:45 PM CDT Appointment Department of Radiation Oncology in [address] [address] Elsie Dewey M.D. [address] [place] [address] 10/11/2023 1:45 PM CDT Appointment Department of Radiation Oncology in [address] [address] Elsie Dewey M.D. [address] [place] [address] 10/14/2023 1:45 PM CDT Appointment Department of Radiation Oncology in [address] [address] Elsie Dewey M.D. [address] [place] [address] 10/15/2023 1:45 PM CDT Appointment Department of Radiation Oncology in [address] [address] Elsie Dewey M.D. [address] [place] [address] 10/15/2023 2:15 PM CDT Appointment Department of Radiation Oncology in [place], [place] [address] [place] [address] Elsie Dewey M.D. [address] [place] [address] 10/16/2023 1:45 PM CDT Appointment Department of Radiation Oncology in [place], [place] [address] [place] [address] Elsie Dewey M.D. [address] [place] [address] 10/17/2023 1:45 PM CDT Appointment Department of Radiation Oncology in [address] [address] Elsie Dewey M.D. [address] [place] [address] 10/18/2023 1:45 PM CDT Appointment Department of Radiation Oncology in [place], [place] [address] [place] [address] Elsie Dewey M.D. [address] [place] [address] 10/21/2023 1:45 PM CDT Appointment Department of Radiation Oncology in [place], [place] [address] [place] [address] Elsie Dewey M.D. [address] [place] [address] 10/22/2023 1:45 PM CDT Appointment Department of Radiation Oncology in [place], [place] [address] [place] [address] Elsie Dewey M.D. [address] [place] [address] 10/22/2023 2:00 PM CDT Appointment Department of Radiation Oncology in [place], [place] [address] [place] [address] Elsie Dewey M.D. [address] [place] [address] 10/23/2023 1:45 PM CDT Appointment Department of Radiation Oncology in [address] [address] Elsie Dewey M.D. [address] [place] [phone] 10/24/2023 1:45 PM CDT Appointment Department of Radiation Oncology in [address] [address] Elsie Dewey M.D. [address] [place] [address] 10/25/2023 1:45 PM CDT Appointment Department of Radiation Oncology in [address] [address] Elsie Dewey M.D. [address] [place] [address] 10/28/2023 1:45 PM CDT Appointment Department of Radiation Oncology in [address] [address] Elsie Dewey M.D. [address] [place] [address] 10/29/2023 1:45 PM CDT Appointment Department of Radiation Oncology in [place], [place] [address] [place] [address] Elsie Dewey M.D. [address] [place] [address] 10/29/2023 2:00 PM CDT Appointment Department of Radiation Oncology in [address] [address] Elsie Dewey M.D. [address] [place] [address] 10/30/2023 1:45 PM CDT Appointment Department of Radiation Oncology in [place], [place] [address] [place] [address] Elsie Dewey M.D. [address] [place] [address] 10/31/2023 1:45 PM CDT Appointment Department of Radiation Oncology in [address] [address] Elsie Dewey M.D. [address] [place] [address] 11/01/2023 1:45 PM CDT Appointment Department of Radiation Oncology in [address] [address] Elsie Dewey M.D. [address] [place] [address] documented as of this encounter Visit Diagnoses Diagnosis Malignant Neoplasm Of Lung Left (HCC)- Primary documented in this encounter
[2023-09-23 07:28] VITALS: BMI 23.5
[2023-09-23 07:51] VITALS: BP 147/83; PULSE 89; RESP 16; TEMP 36.7; O2SAT 92
[2023-09-23] MEDS: LACTATED RINGERS 1000 ML 1,000 ML 100 ML IV (08:22)
[2023-09-23] MEDS: SODIUM CHLORIDE 0.9 % (FLUSH) 10 ML SYRINGE IVF (08:22)
[2023-09-23 08:26] LABS: INR, Point of Care* 0.9 (0.8-1.4)
--- NOTE | 2023-09-23 08:26 | SUR.PREOP ---
POC INR performed in preop room, result 0.9
--- NOTE | 2023-09-23 08:30 | XR_ITS ---
Patient: OLU ROMERO Facility:?[facility] RIS Patient ID:?[id number] Site Patient ID:?[id number] Site :?06/21/1990 Study:?XRay-Chest PORT PLACEMENT-09/23/2023 10:23:55 AM Ordering Physician:JOSE ALFREDO Final Report: Indication: Port placement Technique: Fluoroscopic image of the chest. Fluoroscopic time 33.9 seconds. IMPRESSION: Fluoroscopic guidance for port placement. Dictated by Phil Muhammad MD @ 09/23/2023 12:01:53 PM Signed by:?Phil Muhammad MD @09/23/2023 12:01:53 PM (Electronic Signature)
--- NOTE | 2023-09-23 09:34 | W.PM.H&PU ---
History & Physical Update History & Physical Update H&P Reviewed and patient assessed: No changes noted H&P Updates: Patient has held Coumadin. INR 0.9. Images reviewed.
[2023-09-23] MEDS: CEFAZOLIN 2 GM INJ IVP (09:45)
[2023-09-23] MEDS: BUPIVACAINE 0.5% 30 ML INJECTION (09:59)
[2023-09-23] MEDS: LIDOCAINE 1% MDV 20 ML INJECTION (09:59)
[2023-09-23] MEDS: 0.9% SODIUM CHL 50 ML VIAL INJECTION (10:18)
--- NOTE | 2023-09-23 10:30 | W.ANESCHARGE ---
Anesthesia Charges Start Date/Time Anesthesia Start Date: 09/23/23 Anesthesia Start Time: 09:33 Stop Date/Time Anesthesia Stop Date: 09/23/23 Anesthesia Stop Time: 10:55 Summary Extremes of Age - Over 70 or under 1: MDA
--- NOTE | 2023-09-23 10:31 | XR_ITS ---
Patient: OLU ROMERO Facility:?[facility] RIS Patient ID:?[id number] Site Patient ID:?[id number]. Site :?[id number] Study:?XRay-Chest 1 VIEW PORTABLE-09/23/2023 10:58:22 AM Ordering Physician:?DR. PEÑA Final Report: INDICATION: Check port placement. TECHNIQUE: Chest 1 views. COMPARISON: PET-CT 08/15/2023. FINDINGS: Cardiovasculature and mediastinum: Interval placement of right chest wall port with catheter tip projecting over the lower SVC. Heart size and vasculature are normal in caliber and appearance. Lungs and pleural spaces: Known spiculated FDG avid nodules in the right lung left lung clear. No sign of infiltrate or mass. No sign of pleural effusion. No pneumothorax. Bones and soft tissues: No significant findings. IMPRESSION: 1. Interval placement of chest port in satisfactory position. No pneumothorax. 2. Known FDG avid pulmonary nodules in the right lung. Dictated by Michelet Martinez MD @ 09/23/2023 11:13:30 AM Signed by:?Michelet Martinez MD @09/23/2023 11:13:30 AM (Electronic Signature)
--- NOTE | 2023-09-23 10:32 | PM.GSPRC ---
Operative Note Date of procedure: 09/23/23 Pre-op diagnosis: Multifocal lung cancer Post-op diagnosis: Same Type of Procedure: Right IJ port placement with ultrasound and fluoroscopic guidance Indications: The patient is a 73-year-old female with inoperable bilateral lung cancer with planned chemo radiation therapy. Port placement was requested for chemotherapy administration. Imaging was reviewed and the patient had right hilar and lower lobe lesions as well as left upper lesions. Therefore, the right side was chosen for port placement. Procedure Description: After discussing the risks and benefits of the procedure, the patient signed informed consent.? The operative site was marked and the patient was brought to the operating room and placed on the operating table in supine position.? Care was taken to pad the patient's pressure points.?? The patient was then given sedation by anesthesia.?? The operative site was then prepped and draped in the usual sterile fashion.? A time-out was then performed. The patient's right internal jugular vein was visualized using ultrasound. Local anesthetic was injected into the skin overlying the vein. This was accessed percutaneously using ultrasound guidance. Using Seldinger technique, a guidewire was threaded through the needle. A skin sherin was made around the wire. Next, local anesthetic was injected into the skin below the clavicle and along the proposed tract to the neck incision. A skin incision was then made with a 15 blade and a pocket created in the subcutaneous tissue with cautery. A tunneler was then used to thread the catheter from the chest wall pocket to the neck incision. Once this was done fluoroscopy was brought into the field. Over the wire the tract was dilated using fluoroscopy. The wire and the dilator were then removed leaving the sheath in the vein. Through this, the catheter was threaded. Using fluoroscopy, the catheter was positioned into the distal SVC. The catheter was noted to flush and aspirate easily. The catheter was then connected to the port. The port was placed in the pocket and secured in place with 2 0 Prolene sutures. It was noted to flush and aspirate easily. The skin was closed with absorbable suture. Sterile dressings were applied. The port was then access for planned chemotherapy tomorrow. Tegaderm and a cushioned dressing with Kerlix was placed. Instrument sponge and needle counts were correct at the end of the case. The patient was woken and taken to the PACU in stable condition. The patient tolerated the procedure well. Findings: Right IJ power port placed in the low SVC. Implants: Power port. Anesthesia: GETA Surgeon: Ese Amaral MD Estimated blood loss (mL): 5 Condition: stable Disposition: same day
[2023-09-23 10:35] VITALS: BP 162/88; PULSE 67; RESP 16; TEMP 36.4; O2SAT 91
--- NOTE | 2023-09-23 10:39 | W.ANESCHARGE ---
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
[2023-09-23 10:45] VITALS: BP 151/103; PULSE 70; RESP 16; O2SAT 91
[2023-09-23 11:00] VITALS: BP 166/96; PULSE 68; RESP 16; O2SAT 95
[2023-09-23 11:41] VITALS: BP 170/85; PULSE 81; RESP 16; O2SAT 92
== END 2023-09-23 11:50 | disposition home or self-care (01) ==
PROVIDERS: PCP Internal Medicine; Visit Provider Surgery
PROC: (CPT 36561; principal; 2023-09-23 08:30)
DX: Z45.2 Encounter for adjustment and management of vascular access device (principal); C34.11 Malignant neoplasm of upper lobe, right bronchus or lung; C77.1 Secondary and unspecified malignant neoplasm of intrathoracic lymph nodes
CPT/HCPCS: 36561; 00532; 71045; 76000; 76998; 85610; 99100; C1788; J0665; J0690; J1100; J2250; J2405; J2704; J3010; J3490; J7120

== ENCOUNTER 2023-10-02 09:59 | Emergency (ER) | payer MEDICARE, BC, SELFPAY ==
[2023-10-02 10:13] VITALS: BP 166/91; PULSE 79; RESP 18; TEMP 37.2; O2SAT 98; BMI 23.6
--- NOTE | 2023-10-02 11:30 | CT_ITS ---
Patient: OLU ROMERO Facility:?[facility] RIS Patient ID:?[id number] Site Patient ID:?[id number]. Site :?[id number] Study:?CT-Chest 95CC ISOVUE 370-10/02/2023 12:18:50 PM Ordering Physician:?DR. ALVARADO Final Report: Indication: Chest pain Technique: CTA chest, pulmonary embolism protocol, utilizing 95 mL Isovue 370 Comparison: None Findings: No thyroid nodules. There are few prominent mediastinal lymph nodes. The heart is normal in size. No significant pericardial effusion. Coronary artery calcifications. The thoracic aorta and pulmonary artery are within normal limits in caliber. Right IJ approach port catheter with tip in the mid SVC. There is a small pulmonary embolism in the right apical segmental artery (series number 4, image 64). There is a nodule in the medial aspect of the right upper lobe measuring approximately 1.7 by 1.8 centimeters. Additional nodular like opacity seen in the medial aspect of the left lung base measuring approximately 1.8 x 1.1 centimeters. Mild centrilobular emphysematous changes throughout. There are some focal cystic changes seen in the right lower lobe with some surrounding ground- glass opacities. Ground-glass and solid posterior right lower lung zone opacity measuring approximately 2.1 centimeters in greatest dimension. These findings are grossly unchanged compared to prior PET-CT. The visualized upper abdomen is without acute process. No acute fracture or malalignment. No suspicious osseous lesions. Impression: 1. Small pulmonary embolism in the right apical segmental artery (series number 4, image 64). 2. Right upper lobe pulmonary nodule and additional nodular and ground-glass opacities seen in the bilateral lungs, stable compared to prior PET-CT, consistent with history of lung malignancy. Findings were discussed with Dr. Alvarado by Dr. Jones at 12:35 p.m. central standard time on 10/02/2023. Please note that all CT scans at this facility use dose modulation, iterative reconstruction, and/or weight-based dosing when appropriate to reduce radiation dose to as low as reasonably achievable. Dictated by Yusef Jones MD @ 10/02/2023 12:40:20 PM Signed by:?Yusef Jones MD @10/02/2023 12:40:20 PM (Electronic Signature)
--- NOTE | 2023-10-02 11:32 | ED_ITS ---
HPI - Chest Pain General Chief Complaint: Chest Pain Stated Complaint: chest pain Time Seen by Provider: 10/02/23 10:51 History of Present Illness HPI narrative: This 73-year-old female comes here from the cancer center because she had stated that she had some occasions of mild chest discomfort over the past couple days. She has a history of a cerebral vascular accident with some persistent speech difficulty. This occurred several years ago. She is on Coumadin. This had been discontinued for procedure few weeks ago but she has been taking it now for 9 days again. She does not report any shortness of breath. She does have history of chronic anemia due to iron deficiency and hemoglobin today is noted to be at 8.2. The patient and her state this is not new for her. She does not report any nausea, vomiting, lightheadedness, shortness of breath, diaphoresis, or exercise intolerance. The patient states that she did have a workup with labs and imaging at the [facility] a couple weeks ago. She thinks that her symptoms are related to the recent radiation treatment. She also states that she wants to do whatever it takes to be able to resume her treatments for her lung cancer. Related Data Home Medications Medication Instructions Recorded Confirmed acetaminophen 500 mg tablet 1,000 mg PO Q6H PRN 09/11/23 10/02/23 (Tylenol Extra Strength) albuterol sulfate 90 mcg/actuation 1 - 2 puff inhalation Q4H PRN 09/11/23 10/02/23 aerosol inhaler wheezing cholecalciferol (vitamin D3) 10 10 mcg PO QDAY 09/11/23 10/02/23 mcg (400 unit) tablet fluticasone fur. 100 mcg-umeclid 1 ea inhalation DAILY 09/11/23 10/02/23 62.5 mcg-vilant 25 mcg inhalat.powder (Trelegy Ellipta) levothyroxine 75 mcg tablet 75 mcg PO DAILY 09/11/23 10/02/23 multivitamin 1 tab PO QAM 09/11/23 10/02/23 sertraline 50 mg tablet 50 mg PO DAILY 09/11/23 10/02/23 simvastatin 40 mg tablet 40 mg PO QPM 09/11/23 10/02/23 amino acid-hydrolyzed 1 ea PO DAILY 09/24/23 10/02/23 collagen-whey 15 gram-100 kcal/30 mL oral liquid warfarin 2 mg tablet 2 mg PO .COMPLEX 09/30/23 10/02/23 Previous Rx's Medication Instructions Recorded ondansetron HCl 4 mg tablet 4 mg PO Q8H #30 tabs 09/24/23 prochlorperazine maleate 5 mg 5 mg PO TID PRN nausea and 09/24/23 tablet (Compazine) vomiting #30 tabs apixaban 5 mg (74 tabs) tablets in See Rx Instructions PO .COMPLEX 10/02/23 a dose pack (Eliquis DVT-PE Treat #74 ea 30D Start) Allergies Allergy/AdvReac Type Severity Reaction Status Date / Time aspirin Allergy Intermediate Unknown Verified 10/02/23 12:11 atenolol Allergy Intermediate psoriasis Verified 10/02/23 12:11 Penicillins Allergy Unknown Verified 10/02/23 12:11 Review of Systems Status of ROS Reports: 10 or more systems reviewed and unremarkable except as noted in History and below Narrative Constitutional: No fevers, no weight gain or loss. Eyes: No discharge. No vision changes. HENT: No congestion, no sore throat, no ear pain. Cardiovascular: No palpitations. Chest discomfort as described above. Respiratory: No shortness of breath, no wheezes, no cough. Gastrointestinal: No abdominal pain, no vomiting, no diarrhea. Genitourinary: No dysuria, no hematuria. Musculoskeletal: Normal range of motion. Skin: No pruritis. Neurological: No dizziness, weakness, sensory change, speech change. Late effects of CVA occurring several years ago. Endo/Heme/Allergies: No bruising or bleeding. No polydipsia. Pysch: no suicidality, no anxiety, no insomnia. All other systems reviewed and are negative. [facility] Medical History (Updated 10/02/23 @ 13:06 by Evan Méndez MD) Vegetative endocarditis of mitral valve ?I33.0 - Acute and subacute infective endocarditis (ICD-10) Social History Smoking Status: Former smoker How often do you have a drink containing alcohol: monthly or less How many standard drinks containing alcohol do you have on a typical day: 1 or 2 How often do you have six or more drinks on one occasion: Never AUDIT-C Alcohol total score: 1 Non-prescribed substance use: denies use Caffeine: Yes (coffee) Exam Narrative Exam Narrative: Constitutional: Well-developed, well-nourished, no acute distress. HEENT: Normocephalic, atraumatic. Neck: Normal range of motion. Nontender. Supple. Heart: Regular. No murmurs. Normal rate. Intact distal pulses. Lungs: Clear to auscultation. No chest discomfort. No wheezes, rhonchi, or rales. Abdomen: Normal bowel sounds. Nontender. No rebound tenderness. Genitalia: Deferred. Back: No midline tenderness. Normal range of motion. Extremities: Normal range of motion. No injury. Skin: Intact. No rash. Warm. No erythema or pallor. Neurologic: No altered sensation. No weakness. Alert and oriented. Psychiatric: No suicidality. No anxiety or depression. No insomnia. Nursing notes and vitals signs are reviewed. Const Vital Signs, click to edit/add: Vital Signs - 24 hr 10/02/23 10:13 Temperature 98.9 F Pulse Rate [Right] 79 Respiratory Rate 18 Blood Pressure [Right Upper Arm] 166/91 H Pulse Oximetry 98 Oxygen Delivery Method Room Air Course Vital Signs Vital signs: Initial Vital Signs Temperature 98.9 F 10/02/23 10:13 Temperature Source Temporal Artery Scan 10/02/23 10:13 Pulse Rate 79 10/02/23 10:13 Respiratory Rate 18 10/02/23 10:13 Blood Pressure 166/91 H 10/02/23 10:13 Blood Pressure Mean 116 H 10/02/23 10:13 Blood Pressure Position Sitting 10/02/23 10:13 Pulse Oximetry 98 10/02/23 10:13 Oxygen Delivery Method Room Air 10/02/23 10:13 Vital Signs Temperature 98.9 F 10/02/23 10:13 Pulse Rate 79 10/02/23 10:13 Respiratory Rate 18 10/02/23 10:13 Blood Pressure 166/91 H 10/02/23 10:13 Pulse Oximetry 98 10/02/23 10:13 Oxygen Delivery Method Room Air 10/02/23 10:13 Temperature 98.9 F 10/02/23 10:13 Pulse Rate 79 10/02/23 10:13 Respiratory Rate 18 10/02/23 10:13 Blood Pressure 166/91 H 10/02/23 10:13 Pulse Oximetry 98 10/02/23 10:13 Oxygen Delivery Method Room Air 10/02/23 10:13 MDM - Chest Pain MDM Narrative Medical decision making narrative: This patient comes in with a report of very mild chest discomfort and is requested to have CT scan of her chest to rule out pulmonary embolism as well as evaluate for cardiac cause of her chest discomfort. Her EKG is reassuring and her troponin returns at 0. CT scan of the chest does show small embolism in the right apical with no heart strain. The patient has normal vital signs. She is taking Coumadin and has been doing so resuming this treatment for the past 9 days. She takes 2 mg tablets with every other day taking 4 mg dose. Today her INR returns at 1.13. The patient did receive an oral dose of Eliquis and I did prescribe a starter pack for this same medicine. They plan to connect with her primary physician to consider this is a medicine instead of Coumadin. She is okay to be discharged home. Lab Data Labs: Lab Results 10/02/23 10/02/23 Range/Units 11:31 11:40 INR 1.13 H (0.91-1.10) Sodium 137 (135-149) mmol/L Potassium 3.9 (3.6-5.1) mmol/L Chloride 108 (96-114) mmol/L Carbon Dioxide 28 (20-32) mmol/L Anion Gap 1 L (7-15) mEq/L BUN 31 H (7-30) mg/dL Creatinine 0.9 (0.5-1.5) mg/dL Estimated Creat Clear 39.04 Estimated GFR 67 ml/min Glucose 90 (60-115) mg/dL Calcium 8.7 (8.4-10.6) mg/dL POC Troponin I 0.00 L (0.01-0.04) ng/ml Imaging Data CT scan - chest: Radiologist's impression: 1. Small pulmonary embolism in the right apical segmental artery (series number 4, image 64). 2. Right upper lobe pulmonary nodule and additional nodular and ground-glass opacities seen in the bilateral lungs, stable compared to prior PET-CT, consistent with history of lung malignancy. ECG Data Attestation: I personally reviewed and interpreted this ECG as follows: Interpretation: Normal sinus rhythm. Rate is 69 beats per minute. There are no ST or T-wave abnormalities. Discharge Plan Discharge Clinical Impression: Pulmonary embolism, Adenocarcinoma, lung, Subtherapeutic international normalized ratio (INR) Patient Disposition: Home w/ Parent or Adult Condition: Stable Additional Instructions: Follow-up with primary physician and INR Clinic for ongoing management of anticoagulation. Consider Eliquis instead of Coumadin. Follow up with MD as scheduled and needed. Return if worsening. Prescriptions: New Eliquis DVT-PE Treat 30D Start 5 mg (74 tabs) tablets,dose pack See Rx Instructions PO .COMPLEX Qty: 74 0RF Rx Instructions: orally per package directions No Action simvastatin 40 mg tablet 40 mg PO QPM sertraline 50 mg tablet 50 mg PO DAILY levothyroxine 75 mcg tablet 75 mcg PO DAILY Trelegy Ellipta 100-62.5-25 mcg blister with device 1 ea inhalation DAILY albuterol sulfate 90 mcg/actuation HFA aerosol inhaler 1 - 2 puff inhalation Q4H PRN (Reason: wheezing) multivitamin Tablet 1 tab PO QAM acetaminophen [Tylenol Extra Strength] 500 mg tablet 1,000 mg PO Q6H PRN cholecalciferol (vitamin D3) 10 mcg (400 unit) tablet 10 mcg PO QDAY warfarin 2 mg tablet 2 mg PO .COMPLEX Rx Instructions: Take one tablet, MWF. Take 2 tablets, the remainder. amino ac-hydroly collagen-whey 15 gram-100 kcal/30 mL liquid 1 ea PO DAILY ondansetron HCl 4 mg tablet 4 mg PO Q8H Qty: 30 0RF prochlorperazine maleate [Compazine] 5 mg tablet 5 mg PO TID PRN (Reason: nausea and vomiting) Qty: 30 0RF Follow Up/Referrals: [facility] [Primary Care Provider] - Stand Alone Forms: [employer] Info Instructions
--- OUTSIDE RECORDS SUMMARY | 2023-10-02 11:43 | XMS_ITS | Clinical Summary ---
Author Name Unknown Organization [facility] Address [place], [place] [address] Care Team Providers Care Band Edger Name Role Phone [facility] Primary Care [...] BEDTIME 90 Tablet 2 3 Active fluticasone lst-epadnphakecd-jvb anterol (Trelegy Ellipta) 100-62.5-25 mcg inhalerIndications:C hronic [...] 07/09/2018 Wears glasses 03/13/2018 Overview: Follows at [facility]. Hypothyroidism (acquired) 09/09/2017 Hyperlipidemia 08/25/2014 Depression 08/25/2014 [...] Encounters Date Type Department Care Team Description 10/01/2023 12:50 PM CDT Office Visit [address] [address] Amrita Henriquez NP Follow Up (After chemo infusions, iron low and blood pressure elevated) 10/01/2023 Travel 09/23/2023 8:00 AM CDT Office Visit [facility] [address] [place] [address] Ese Amaral MD 09/23/2023 Orders Only [facility] Scanner 1 scan: (1-Ord) [facility], XR CHEST 1V, 09/23/2023 09/23/2023 Orders Only [facility] Scanner 1 scan: (1-Ord) [facility], RT IJ PORT PLACEMENT W US AND FLUOROSCOPIC GUIDANCE, 09/23/2023 09/20/[address] [address] [facility], Questions 09/18/2023 11:30 AM CDT Preop Visit [address] [address] [facility] DO Pre-Op Exam (port placement 0408/24 [facility] discuss going off warfrin) 09/18/2023 Travel 09/13/[address] [address] Marbella Herat DO Referral (Port Placement order) 09/13/[address] [address] [facility] DO Procedure (PORT PLACEMENT) 09/06/2023 Orders Only [facility] Scanner 1 scan: (1-Ord) [facility], HEAD W/WO, 09/06/2023 08/29/2023 1:00 PM CDT Orders Only [address] [place] [address] Lab, [facility] 08/29/2023 Anticoagulation (warfarin) [address] [place] [address] 1, [facility] Anticoagulation 08/29/2023 Travel 08/15/2023 Orders Only [facility] Scanner 1 scan: (1-Ord) [facility], PET SKULL TO MID THIGH, 08/15/2023 08/01/2023 1:30 PM SENIOR ENGINEERING SPECIALIST Orders Only [address] [place] [address] Lab, [facility] 08/01/2023 Anticoagulation (warfarin) [address] [place] [address] 1, [facility] Anticoagulation 08/01/2023 Travel 07/29/[address] [place] [address] [facility], Anticoagulation (Annual re-enrollment ) 07/24/2023 Medical Messaging [address] [place] [address] [facility], DO CT Scans 07/15/2023 8:50 AM SENIOR ENGINEERING SPECIALIST Office Visit [address], [place] [address] [facility], Follow Up (on results) 07/14/2023 Travel 07/11/2023 1:00 PM SENIOR ENGINEERING SPECIALIST Orders Only [address] [place] [address] Lab, [facility] 07/11/2023 Anticoagulation (warfarin) [address] [place] [address] 1, [facility] Anticoagulation 07/11/2023 Travel from Last 3 Months Immunizations Name Administration Dates Next Due COVID-19 Vaccine Spikevax (M oderna 50mcg/0.5mL) 12YO+ 6800-5222 Formula PF 03/28/2023 COVID-19 vaccine ([employer] NTech 30mcg/0.3mL) 12YO+ BIVALENT PF, MDV 04/02/2022 COVID-19 vaccine ([employer] NTech 30mcg/0.3mL) PF, MDV 04/20/2021,09/10/2020,08/20/2020 Influenza, High-dose [...] Relation Name Comments Heart Disease Brother 2 [place] Cancer-breast Maternal Aunt Diabetes Maternal Grandmother Heart [...] Sign Reading Time Taken Comments Blood Pressure 140/82 10/01/2023 12:57 PM CDT Pulse 72 10/01/2023 12:52 PM CDT Temperature 37.1 ??C (98.8 ??F) 03/29/2023 8:58 AM CD T Respiratory Rate 16 06/20/2023 3:30 PM SENIOR ENGINEERING SPECIALIST Oxygen Saturation 93% 10/01/2023 12:52 PM CDT Inhaled Oxygen Concentration - - Weight 59.7 kg (131 lb 9.6 oz) 10/01/2023 12:52 PM CDT Height 160 cm (5' 3) 10/01/2023 12:52 PM CDT Body Mass Index 23.31 10/01/2023 12:52 PM CDT Plan of Treatment Health Maintenance Due [...] history exists Mammogram for age 45-75 04/23/2024 04/23/20 22, 04/08/2020, 09/16/2017, Additional history exists Low Dose CT (for lung CA) ag e 50-80 2024 2023, 11/01/2022, 10/30/2021, Additional history exists Fecal testing sDNA-FIT ([place] guard) for age 45-75 09/27/2024 09/27/2021 BMI (ht and wt on same day) for age 18+ 09/30/2024 10/01/2023, 09/18/2023, 07/15/2023, Additional history exists Lipids for age 45-75 03/28/2028 03/28/2023, 05/28/2022, 04/14/2021, Additional history exists Tdap Completed 10/16/2012 DEXA/DXA scan for age 65+ Completed 09/10/2016 Zoster (shingles) series for age 50+ Completed 12/01/2018, 09/30/2018 Hepatitis C screening for ag e 18-79 Completed 03/13/2019 Pneumococcal series for age 65+ Completed 05/28/2022, 02/13/2016, 12/10/2013 Procedures Procedure Name Priority Date/Time Associated Diagnosis Comments SCAN-RADIOLOGY REPORT 09/23/2023 12:00 AM CDT SCAN-OPERATIVE/PROCEDU RE REPORT 09/23/2023 12:00 AM CDT SCAN-MRI INTERPRETATION 09/06/2023 12:00 AM CDT PROTIME-INR STAT 08/29/2023 12:56 PM CDT Cerebrovascular accident (CVA) due to embolism of left middle cerebral artery (HC) Anticoagulation monitoring, INR range 2-3 SCAN-PET SCAN 08/15/2023 12:00 AM SENIOR ENGINEERING SPECIALIST PROTIME-INR STAT 08/01/2023 1:25 PM SENIOR ENGINEERING SPECIALIST Cerebrovascular accident (CVA) due to embolism of left middle cerebral artery (HC) Anticoagulation monitoring, INR range 2-3 PROTIME-INR STAT 07/11/2023 12:50 PM SENIOR ENGINEERING SPECIALIST Cerebrovascular accident (CVA) due to embolism of left middle cerebral artery (HC) Anticoagulation monitoring, INR range 2-3 CT CHEST WO KELLIE 2023 2:09 PM SENIOR ENGINEERING SPECIALIST Acute left-sided thoracic back pain Adenocarcinoma of left lung (HC) LIPID PANEL W REFLEX MEASURED LDL Routine 03/28/2023 1:16 PM CDT HTN (hypertension) Cerebrovascular accident (CVA) due to embolism of left middle cerebral artery (HC) Other hyperlipidemia XR MAMMO BILAT SCREENING Routine 04/23/2022 10:11 AM SENIOR ENGINEERING SPECIALIST Encounter for screening mammogram for malignant neoplasm of breast FECAL DNA (AKA COLOGUARD) Routine 09/27/2021 12:00 AM CDT Screening for colon cancer ANTI HCV Routine 03/13/2019 3:42 PM CDT Need for hepatitis C screening test XR DXA BONE DENSITY 2 SITES AXIAL Routine 09/10/2016 2:54 PM CDT Asymptomatic postmenopausal state from Last 3 Months or Most Recently Relevant to Health Maintenance Results * SCAN-RADIOLOGY REPORT (09/23/2023 12:00 AM CDT) Anatomical Region Laterality Modality Other Scanner OTHER * SCAN-OPERATIVE/PROCEDURE REPORT (09/23/2023 12:00 AM CDT) Scanner OTHER * SCAN-MRI INTERPRETATION (09/06/2023 12:00 AM CDT) Anatomical Region Laterality Modality Other Scanner OTHER * (ABNORMAL) PROTIME-INR (08/29/2023 12:56 PM CDT) Only the most recent of3 resultswithin the time period is included. INR 2.1(H) <1.3 08/29/2023 1:13 PM CDT [facility] PROTIME 22.8(H) 10.3 - 12.3 sec 08/29/2023 1:13 PM CDT [facility] Blood BLOOD SPECIMEN / Unknown Venipuncture / Unknown 08/29/2023 12:56 PM CDT 08/29/2023 12:56 PM CDT Narrative [facility] - 08/29/2023 1:13 PM CDT ?Therapeutic [...] is on UFH. [facility] DO HEMATOLOGY [facility] [address] [place] [address] * SCAN-PET SCAN (08/15/2023 12:00 AM SENIOR ENGINEERING SPECIALIST) Anatomical Region Laterality Modality Other Scanner OTHER * CT CHEST WO (2023 2:09 PM SENIOR ENGINEERING SPECIALIST) Anatomical Region Laterality Modality CHEST, THORAX, HEART Computed To mography 06/22/2023 1:16 AM SENIOR ENGINEERING SPECIALIST Addenda Addendum by Janna Wood MD on 07/17/2023 11:15 AM SENIOR ENGINEERING SPECIALIST For Patients: ??As a result of the Cures Act, medical imaging exams and procedure [...] (Electronically Signed) ?? Impressions 06/22/2023 1:16 AM SENIOR ENGINEERING SPECIALIST 1. No etiology seen to explain left [...] AM (Electronically Signed) Narrative 06/22/2023 1:16 AM SENIOR ENGINEERING SPECIALIST For Patients: ??As a result of the [...] 100 - 199 mg/dL 03/28/2023 2:56 PM CDT [facility] Comment: Cholesterol, Total Reference Ranges Desirable <200 mg/dL Borderline 200-239 mg/dL High >=240 mg/dL TRIGLYCERIDES 150(H) <150 mg/dL 03/28/2023 2:56 PM CDT [facility] HDL CHOLESTEROL 66 >40 mg/dL 2:56 PM T [facility] NON-HDL CHOLESTEROL 101 <145 mg/dl 03/28/2023 2:56 PM T [facility] CHOL/HDL RATIO 2.53 <4.50 03/28/2023 2:56 PM CDT [facility] LDL CHOLESTEROL 71 <=130 mg/dL 03/28/2023 2:56 PM T [facility] VLDL CHOLESTEROL 30 <=30 mg/dL 03/28/2023 2:56 PM T [facility] PROVIDER ORDERED STATUS RANDOM 03/28/2023 2:56 PM T [facility] Blood BLOOD SPECIMEN / Unknown Venipuncture / Unknown 03/28/2023 1:16 PM CDT 03/28/2023 1:17 PM CDT [facility] DO CHEMISTRY Performing Organization Address [facility] Co de Phone Number [facility] [address] [place] [address] * XR MAMMO BILAT SCREENING (04/23/2022 10:11 AM SENIOR ENGINEERING SPECIALIST) Anatomical Region Laterality Modality BREASTS, Breast Left, Breast Right Bilateral Mammography Impressions 04/23/2022 11:55 AM SENIOR ENGINEERING SPECIALIST ??There is no radiographic evidence for malignancy. ??Recommend annual mammograms. MAMMOGRAM ASSESSMENT: ??ACR 1 Negative PATIENTS: You will also receive a letter with your examination results in an easy to read format. ??If you have questions about your results, please contact your referring provider. Narrative 04/23/2022 11:55 AM SENIOR ENGINEERING SPECIALIST For Patients: As a result of the Century Cures Act, medical imaging exams and procedure reports are released immediately into your electronic medical record. You may view this report before your referring provider. If you have questions, please contact your health care provider. XR MAMMO BILAT SCREENING [[id number]] CLINICAL HISTORY: ??This is an asymptomatic 71 [...] thanh Non-React thanh 03/13/2019 11:18 PM CDT [facility] Comment:Antibodies to HCV no t detected; does not exclude the possibility of exposure to HCV. Blood BLOOD SPECIMEN / Unknown Venipuncture / Unknown 03/13/2019 3:42 PM CDT 03/13/2019 3:42 PM CDT [facility] DO [facility] [address] [place] [address], * XR DXA BONE DENSITY 2 SITES AXIAL (09/10/2016 2:54 PM CDT) Anatomical Region Laterality Modality Spine, HIPS, HIPL, HIPR Bone Den sitometry Narrative 09/12/2016 8:48 AM CDT Please see scanned document for results of this study. Mar[facility]ella BOBA from Last 3 Months or Most Recently Relevant to Health Maintenance Advance Directives Documents on File Type Date Recorded Patient Television Servicer Expl anation Healthcare Directive 09/17/2023 024 Healthcare Directive 06/30/2012 2:01 PM AD SHAFFER DIRECTIVE, 06/30/2012 Care Teams Band Edger Relationship Specialty Start Date End Date [facility] DO [address] [place] [address] [place] [address] PCP - General Internal Medicine 08/25/14
--- OUTSIDE RECORDS SUMMARY | 2023-10-02 11:43 | XMS_ITS | Clinical Summary ---
Author Name Unknown Organization [facility] Address [address] [place] [address] Care Team Providers Care Director Supplier Quality Name Role Phone Unavailable Primary Care Provider Unavailabl e Source Comments Patient records contain information from all sites at [facility]. For routine questions regarding patient records, call [phone] during business hours, M-F 8:00 AM - 5:00 PM Central Time. Record requests for emergency care only can be directed to [phone] at any time.[facility] Allergies Active Allergy Reactions Criticality Noted Date Comments Aspirin GI bleeding 03/21/2012 Atenolol Rash 10/29/2019 Penicillins Other (see comments) 09/22/2011 Unknown reaction Medications Medication Sig Dispensed Refills Start Date End Date Status multivitamin tablet Take 1 tablet by mouth daily. 09/19/2011 Active levothyroxine (SYNTHROID, LEVOTHROID) 75 mcg tablet Take 75 mcg by mouth daily. 05/28/2022 Active simvastatin (ZOCOR) 40 mg tablet Take 40 mg by mouth at bedtime. 05/28/2022 Active sertraline (ZOLOFT) 50 mg tablet Take 50 mg by mouth daily. 05/28/2022 Active warfarin (COUMADIN) 2 mg tablet TAKE 1.5 TABLETS BY MOUTH EVERY E AND SAT; TAKE TWO TABLETS ALL OTHER DAYS OR DIRECTED 09/17/2022 Active albuterol 90 mcg/actuation inhaler INHALE ONE TO TWO PUFFS BY MOUTH EVERY 4 HOURS NEEDED FOR SHORTNESS OF BREATH OR WHEEZING Active prochlorperazine (COMPAZINE) 5 mg tablet Take 5 mg by mouth every 8 (eight) hours as needed for nausea or vomiting. 09/24/2023 Active ondansetron (ZOFRAN) 4 mg tablet Take 1 tablet by mouth 3 (three) times a day with meals. 09/24/2023 Active Trelegy Ellipta 100-62.5-25 mcg inhaler Inhale 1 puff daily. Active cholecalciferol, vitamin D3, 10 mcg (400 unit) capsule Take 10 mcg by mouth. 09/11/2023 Active ipratropium-albut tammie (COMBIVENT RESPIMAT) 20-100 mcg/actuation inhaler Inhale 1-2 puffs 4 (four) times a day as needed. shortness of breath, wheezing 11/25/2013 09/13/2023 Discontinue d Advair Diskus 250-50 mcg/act diskus inhaler 1 puff 2 (two) times a day. 10/10/2022 09/13/2023 Discontinued ipratropium-albut Tammie (Combivent Respimat) 20-100 mcg/actuation inhaler Inhale 1 puff as needed. 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 10/01/2023 1:44 PM CDT Hospital Encounter Department of Radiation Oncology in [address] [address] Elsie Dewey M.D. Malignant Neoplasm Of Lung Right (HCC) 10/01/2023 Clinical Communication Department of Radiation Oncology in [address] [address] Elsie Dewey M.D. 10/01/2023 Documentation Department of Oncology in [address] [address] Willow Smith P.A.-C., P.A. 09/30/2023 1:24 PM CDT Hospital Encounter Department of Radiation Oncology in [address] [address] Elsie Dewey M.D. 09/27/2023 12:34 PM CDT Hospital Encounter Department of Radiation Oncology in [address] [address] Elsie Dewey M.D. 09/26/2023 12:35 PM CDT - 09/26/2023 2:44 PM CDT Hospital Encounter Department of Radiation Oncology in [address] [address] Elsie Dewey M.D. Retterath, Chelsey A, R.N. Malignant Neoplasm Of Lung Right (HCC) 09/26/2023 12:35 PM CDT Hospital Encounter Department of Radiation Oncology in [address] [address] Elsie Dewey M.D. 09/25/2023 12:34 PM CDT Hospital Encounter Department of Radiation Oncology in [address] [address] lEsie Dewey M.D. 09/24/2023 9:00 AM CDT Hospital Encounter Department of Radiation Oncology in [address] [address] Elsie Dewey M.D. 09/24/2023 8:42 AM CDT - 09/24/2023 8:59 AM CDT Hospital Encounter Department of Radiation Oncology in [address] [address] Elsie Dewey M.D. Malignant Neoplasm Of Lung Right (HCC) 09/23/2023 1:23 PM CDT Hospital Encounter Department of Radiation Oncology in [address] [address] Elsie Dewey M.D. 09/23/2023 Abstract [place], [place] [address] [place] [phone] Provider, Historical 09/11/2023 12:30 PM CDT - 09/11/2023 3:09 PM CDT Hospital Encounter Department of Radiation Oncology in [address] [address] Elsie Dewey M.D. Malignant Neoplasm Of Lung Right (HCC) 09/11/2023 12:06 PM CDT - 09/13/2023 3:24 PM CDT Hospital Encounter Department of Radiation Oncology in [address] [phone] Elsie Dewey M.D. Grieman, Kari A, R.NJessica Malignant Neoplasm Of Lung Right (HCC) (Primary Dx); Malignant Neoplasm Of Lung Left (HCC) 09/10/2023 Clinical Communication Department of Radiation Oncology in [address] [address] Albertina Stiles APRN, C.N.P., D.N.P. Results 09/10/2023 Tumor Board Conference Department of Radiation Oncology in [address] [address] Elsie Dewey M.D. 09/09/2023 2:53 PM CDT - 09/09/2023 4:42 PM CDT Hospital Encounter Department of Radiation Oncology in [address] [address] Elsie Dewey M.D. Malignant Neoplasm Of Lung Left (HCC) (Primary Dx); Malignant Neoplasm Of Lung Right (HCC) 09/09/2023 Orders Only Division of Pulmonary Medicine in [place], [place] [address] [place] [phone] Nilo Pickett APRN, C.N.P., D.N.P. 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 Malignant Neoplasm Of Lung Left (HCC); Nodules Pulmonary Multiple; Lymphadenopathy Mediastinum; Abnormal Positron Emission Tomography Scan 09/05/2023 7:38 AM CDT Anesthesia Event RST ROMB MAIN OR [facility] [place] [phone] Darshana Reyes M.D. Housmans, Philippe R, M.D., Ph.D. 09/05/2023 7:15 AM CDT - 09/05/2023 10:05 AM CDT Surgery RST ROM MAIN OR [address] [place] [phone] Phil Abreu M.D. BRONCHOSCOPY FLEXIBLE, ENDOBRONCHIAL ULTRASOUND-GUIDED TRANSBRONCHIAL NEEDLE ASPIRATION. 09/05/2023 6:35 AM CDT Ancillary Procedure Department of General Surgery 09/05/2023 5:44 AM CDT - 09/05/2023 11:57 AM CDT [facility] [address] [place] [phone] Phil Abreu M.D. Malignant Neoplasm Of Lung Left (HCC); Nodules Pulmonary Multiple; Lymphadenopathy Mediastinum; Abnormal Positron Emission Tomography Scan Discharge Disposition: Home or Self Care 09/04/2023 11:59 AM CDT - 09/04/2023 11:59 PM CDT Hospital Encounter Department of Laboratory Medicine and Pathology, [facility] in [place], [place] [address] [place] [phone] Nilo Pickett APRN, C.N.P., D.N.P. Malignant Neoplasm Of Lung Left (HCC); Nodules Pulmonary Multiple; Lymphadenopathy Mediastinum; Abnormal Positron Emission Tomography Scan; Stroke Cerebrovascular Accident Personal History; Anemia Microcytic Discharge Disposition: Home or Self Care 09/04/2023 10:55 AM CDT - 09/04/2023 11:58 AM CDT Hospital Encounter Department of Radiology, [facility], in [place], [place] [address] [place] [address] Nilo Pickett APRN, C.N.P., D.N.P. Malignant Neoplasm Of Lung Left (HCC); Nodules Pulmonary Multiple; Lymphadenopathy Mediastinum; Abnormal Positron Emission Tomography Scan Discharge Disposition: Home or Self Care 09/04/2023 Documentation Division of Pulmonary Medicine in [place], [place] [address] [place] [address] Nilo Pickett APRN, C.N.P., D.N.P. 09/04/2023 Orders Only Division of Pulmonary Medicine in [place], [place] [address] [place] [address] Nilo Pickett APRN, C.N.Carlos., D.N.P. Anemia Microcytic (Primary Dx) 08/30/2023 Clinical Communication Department of Radiation Oncology in [address] [phone] Elsie Dewey M.D. 08/29/2023 9:14 AM CDT - 08/29/2023 4:11 PM CDT Hospital Encounter Department of Radiation Oncology in [address] [address] Elsie Dewey M.D. Malignant Neoplasm Of Lung Left (HCC) (Primary Dx); Malignant Neoplasm Of Lung Right (HCC) 08/29/2023 Documentation Division of Pulmonary Medicine in [place], [place] [address] [place] [address] Nilo Pickett APRN, C.N.P., D.N.P. 08/27/2023 Orders Only Department of Radiation Oncology in [address] [address] Danielle Glover P.A.-C., M.S. 07/30/2023 2:54 PM HOTBED TRANSFER OPERATOR - 07/30/2023 4:35 PM HOTBED TRANSFER OPERATOR Hospital Encounter Department of Radiation Oncology in [place], [place] [address] [place] [address] Elsie Dewey M.D. Malignant Neoplasm Of Lung Left (HCC) (Primary Dx) 07/30/2023 Tumor Board Conference Department of Radiation Oncology in [place], [place] [address] [place] [address] Elsie Dewey M.D. from Last 3 Months Immunizations Name Administration Dates Next Due Influenza Split 03/24/2013 Social History Tobacco Use Types Packs/Day Years Used Date Smoking Tobacco: Former Cigarettes 2.5 49.1 0 09/25/1962 - 10/19/2011 Smokeless Tobacco: Never [...] declined 10/31/2022 How often do you attend moravian or yazidism serv ices? Never 10/31/2022 Do you belong to any clubs o r organizations such as moravian groups, unions, fraternal or athletic groups, or [...] and heating? Not hard at all 10/31/2022 [facility] [place] of Occupat ional Health - Occupational Stress [...] place to sleep or slept in a prison (including now)? No 10/31/2022 Nutrition Answer Date [...] Sign Reading Time Taken Comments Blood Pressure 149/71 10/01/2023 2:20 PM CDT Pulse 74 10/01/2023 2:40 PM CDT Temperature 36.4 ??C (97.5 ??F) 10/01/2023 2:20 PM CD T Respiratory Rate 18 10/01/2023 2:20 PM CDT Oxygen Saturation 98% 10/01/2023 2:20 PM CDT Inhaled Oxygen Concentration - - Weight 59.2 kg (130 lb 8.2 oz) 10/01/2023 2:20 P M CDT Height 157.5 cm (5' 2) 09/05/2023 6:11 AM CDT Body Mass Index 23.87 09/05/2023 6:11 AM CDT Plan of Treatment Upcoming Encounters Date Type Department Care Team (Late st Contact Info) Description 10/02/2023 1:00 PM CDT Appointment Department of Radiation Oncology in [place], [place] [address] [place] [phone] Elsie Dewey M.D. [address] [place] [address] 10/03/2023 1:45 PM CDT Appointment Department of Radiation Oncology in [place], [place] [address] [place] [phone] Elsie Dewey M.D. [address] [place] [phone] 10/04/2023 1:45 PM CDT Appointment Department of Radiation Oncology in [place], [place] [address] [place] [address] Elsie Dewey M.D. [address] [place] [phone] 10/07/2023 1:45 PM CDT Appointment Department of Radiation Oncology in [address] [address] Elsie Dewey M.D. [address] [place] [phone] 10/08/2023 1:45 PM CDT Appointment Department of Radiation Oncology in [place], [place] [address] [place] [address] Elsie Dewey M.D. [address] [place] [phone] 10/08/2023 2:00 PM CDT Appointment Department of Radiation Oncology in [place], [place] [address] [place] [phone] Elsie Dewey M.D. [address] [place] [phone] 10/09/2023 1:45 PM CDT Appointment Department of Radiation Oncology in [address] [address] Elsie Dewey M.D. [address] [place] [phone] 10/10/2023 1:45 PM CDT Appointment Department of Radiation Oncology in [place], [place] [address] [place] [address] Elsie Dewey M.D. [address] [place] [phone] 10/11/2023 1:45 PM CDT Appointment Department of Radiation Oncology in [place], [place] [address] [place] [phone] Elsie Dewey M.D. [address] [place] [phone] 10/14/2023 1:45 PM CDT Appointment Department of Radiation Oncology in [address] [phone] Elsie Dewey M.D. [address] [place] [phone] 10/15/2023 1:45 PM CDT Appointment Department of Radiation Oncology in [address] [address] Elsie Dewey M.D. [address] [place] [phone] 10/15/2023 2:15 PM CDT Appointment Department of Radiation Oncology in [address] [address] Elsie Dewey M.D. [address] [place] [phone] 10/16/2023 1:45 PM CDT Appointment Department of Radiation Oncology in [place], [place] [address] [place] [phone] Elsie Dewey M.D. [address] [place] [address] 10/17/2023 1:45 PM CDT Appointment Department of Radiation Oncology in [place], [place] [address] [place] [phone] Elsie Dewey M.D. [address] [place] [address] 10/18/2023 1:45 PM CDT Appointment Department of Radiation Oncology in [address] [address] Elsie Dewey M.D. [address] [place] [address] 10/21/2023 1:45 PM CDT Appointment Department of Radiation Oncology in [address] [address] Elsie Dewey M.D. [address] [place] [address] 10/22/2023 1:45 PM CDT Appointment Department of Radiation Oncology in [place], [place] [address] [place] [phone] Elsie Dewey M.D. [address] [place] [address] 10/22/2023 2:00 PM CDT Appointment Department of Radiation Oncology in [address] [phone] Elsie Dewey M.D. [address] [place] [address] 10/23/2023 1:45 PM CDT Appointment Department of Radiation Oncology in [place], [place] [address] [place] [address] Elsie Dewey M.D. [address] [place] [address] 10/24/2023 1:45 PM CDT Appointment Department of Radiation Oncology in [place], [place] [address] [place] [phone] Elsie Dewey M.D. [address] [place] [phone] 10/25/2023 1:45 PM CDT Appointment Department of Radiation Oncology in [place], [place] [address] [place] [address] Elsie Dewey M.D. [address] [place] [phone] 10/28/2023 1:45 PM CDT Appointment Department of Radiation Oncology in [place], [place] [address] [place] [phone] Elsie Dewey M.D. [address] [place] [address] 10/29/2023 1:45 PM CDT Appointment Department of Radiation Oncology in [place], [place] [address] [place] [phone] Elsie Dewey M.D. [address] [place] [phone] 10/29/2023 2:00 PM CDT Appointment Department of Radiation Oncology in [place], [place] [address] [place] [phone] Elsie Dewey M.D. [address] [place] [phone] 10/30/2023 1:45 PM CDT Appointment Department of Radiation Oncology in [place], [place] [address] [place] [phone] Elsie Dewey M.D. [address] [place] [phone] 10/31/2023 1:45 PM CDT Appointment Department of Radiation Oncology in [address] [phone] Elsie Dewey M.D. [address] [place] [phone] 11/01/2023 1:45 PM CDT Appointment Department of Radiation Oncology in [place], [place] [address] [place] [phone] Elsie Dewey M.D. [address] [place] [phone] Health Maintenance Due Date Last Done Comments Bone Density Scan (Osteoporosis Screen) 1949 CT Colonography 1950 Cologuard 1949 FIT 1950 Hepatitis C Screening 1950 Mammogram 11/24/2013 11/24/2012 (Perf ormed elsewhere), 10/15/2012 (Performed elsewhere), 10/16/2011 (Performed elsewhere) Colonoscopy 01/15/2022 01/16/2012 Colorectal Cancer Screening 01/15/2022 DTaP,Tdap,and Td Vaccines (2 - Td or Tdap) 10/16/2022 10/16/2012 Depression Screening (Annual PHQ-2) 06/17/2023 Thyroid Stimulating Hormone (TSH) test for thyroid function 03/28/2024 03/28/2023, 05/28/2022, 04/14/2021, Additional history exists Fasting Glucose for Diabetes Screening 09/03/2026 09/04/2023, 03/29/2023, 03/28/2023, Additional history exists Zoster Vaccines Completed 12/01/2018, 09/30/2018 Pneumococcal vaccine (65+ years) Completed 05/28/2022, 02/13/2016, 12/10/2013 COVID-19 Vaccine Completed 03/28/2023, , 04/20/2021, Additional history exists Influenza Vaccine Completed 03/28/2023, , 04/20/2021, Additional history exists Fall Risk Screen (Annual) Completed 09/26/2023 HPV Vaccines Aged Out No longer eligi ble based on patient's age to complete this topic Procedures Procedure Name Priority Date/Time Associated Diagnosis Comments ARIA DAILY TREATMENT INFORMATION Routine 10/01/2023 2:11 PM CDT ARIA DAILY TREATMENT INFORMATION Routine 09/30/2023 2:03 PM CDT ARIA DAILY TREATMENT INFORMATION Routine 09/27/2023 1:18 PM CDT ARIA DAILY TREATMENT INFORMATION Routine 09/26/2023 12:53 PM CDT ARIA DAILY TREATMENT INFORMATION Routine 09/25/2023 1:00 PM CDT ARIA DAILY TREATMENT INFORMATION Routine 09/24/2023 9:28 AM CDT ARIA DAILY TREATMENT INFORMATION Routine 09/23/2023 2:05 PM CDT INITIAL RAD ONC TREATMENT PLANNING CT SIMULATION [...] and all outpatients) 09/05/2023 10:18 AM CDT [facility] SOLID TUMOR PANEL Routine 09/05/2023 10:05 AM CDT Malignant Neoplasm Of Lung Left (HCC) Nodules Pulmonary Multiple Lymphadenopathy Mediastinum Abnormal Positron Emission Tomography Scan CYTOLOGY FINE NEEDLE ASPIRATION (INCLUDES CORE BIOPSIES [...] OUTSIDE NM PET Routine 08/15/2023 12:05 PM HOTBED TRANSFER OPERATOR EXTI THYROID-STIMULATING HORMONE-SENSITIVE (S-TSH), S Routine 03/28/2023 1:16 PM CDT from Last 3 Months or Most Recently Relevant to Health Maintenance Results * Aria Daily Treatment Information (10/01/2023 2:11 PM CDT) Only the most recent of7 resultswithin the time period is included. Course ID [id number] [facility] Course Start Date 4 15:26 CDT [facility] First Treatment Date 4 14:04 CDT [facility] Last Treatment Date 4 14:11 CDT [facility] Treatment Elapsed Days 8 [facility] Reference Point [id number] [facility] ARIA Dosage Given to Date cGy 1400 [facility] Session Dosage Given 200 [facility] Plan ID [id number] [facility] Fractions Treated to Date 7 [facility] Planned Total Fractions 30 [facility] Prescribed Dose Per Fraction 200 [facility] Prescription Dose in cGy 6000 [facility] Plan Primary Reference Point [id number] [facility] 10/01/2023 2:11 PM CDT Provider Not In System RADIATION ONCOLOG Y ORDERABLES Performing Organization Address [facility] de Phone Number REJI SANDOVAL na * Initial Rad Onc Treatment Planning CT Simulation (09/11/2023 1:00 PM CDT) Narrative [facility] - 09/11/2023 1:00 PM CDT Ese Castaneda, RTT ? 09/11/2023 ??1:10 PM Initial Rad Onc Treatment Planning CT Simulation Performed by: Elsie Dewey M.D. Authorized by: Elsie Dewey M.D. ?? Elsie Dewey M.D. RADIATION ONCOLOG Y ORDERABLES Performing Organization Address [facility] Phone Number REJI SANDOVAL na * MR head/brain wo/w con-Outside MR Neuro (09/06/2023 2:00 PM CDT) Narrative [facility] - 09/09/2023 2:16 PM CDT This order [...] IMG MRI PROCEDURE S Performing Organization Address [facility] Co de Phone Number [facility] NA * (ABNORMAL) SPSMA Result (09/05/2023 12:02 [...] 12:02 PM CDT 09/05/2023 12:21 PM CDT Sylvia Tejeda APRN.N.P., D.N.P. L AB BLOOD ADD-ON Performing Organization Address City/[facility]/ZIP Co de Phone Number [facility] [address] [place], [place] [phone] [place] [address] [address] [place] [address] * (ABNORMAL) Iron and Total Iron-Binding Capacity [...] L AB BLOOD ADD-ON Performing Organization Address City/[facility]/ZIP Co de Phone Number [facility] [address] [place] [address], [facility] [place] [address] [place] [address] * Folate (09/05/2023 12:02 PM CDT) Folate, S >20.0 >=4.0 mcg/L 09/05/2023 1: 21 PM CDT DTL Blood (Blood, Venous) 09/05/2023 12:02 PM CDT 09/05/2023 12:31 PM CDT Agustina Tejeda APRNN.P., Perri.N.P. L AB BLOOD ADD-ON [facility] [address] [place] [address] * Ferritin (09/05/2023 12:02 PM CDT) Ferritin, S 14 11 - 328 mcg/L 09/05/2023 1:04 PM CDT DT Blood (Blood, Venous) 09/05/2023 12:02 PM CDT 09/05/2023 12:31 PM CDT Sylvia Tejeda APRN.N.P., D.N.P. L AB BLOOD ADD-ON [facility] [address] [place] [address] * (ABNORMAL) Vitamin B12 Assay (09/05/2023 12:02 PM CDT) Vitamin B12 Assay, S 1127(H) 180 - [...] 09/05/2023 12:31 PM CDT Nilo Pickett APRN, CJessicaNJessicaP., JeanethPJessica L AB BLOOD ADD-ON [facility] [address] [place] [address], [place] DTL [facility] [address] [place] [address] * FL Fluoro Less Than 1 Hour (09/05/2023 10:18 AM CDT) Narrative 152 HOS LOS RST - 09/05/2023 10:19 AM CDT This exam does not require a radiologist review or interpretation. Please refer to the patient's medical record on this date for clinical details. Phil Abreu M.D. IMG FLUOROSCOPY PRO CEDURES 152 [facility] RST * [facility] Solid Tumor Panel, Next-Generation Sequencing, Tumor (09/05/2023 10:05 AM CDT) Result PROVIDED DIAGNOSIS: LUNG ADENOCARCINOMA INVOLVING A LYMPH NODE 09/25/2023 6:50 PM CDT DTL Additional Information Sequencing coverage greater than or equal to 100X was observed in 98.2% of targeted regions. Low coverage regions (< 100X coverage): ACVR1B (Promoter); ARID1A (Exon 1); CHD2 (Exon 11, Exon 15); COP1 (5'UTR); EPCAM (5'UTR); FANCE (5'UTR, Exon 1); FLT3 (Exon 1); GATA4 (Exon 2); MALT1 (5'UTR); NCOR1 (Exon 42,Exon 43); PRKDC (5'UTR); RAB35 (5'UTR); RANBP2 (Exon 11); SETBP1 (5'UTR); SH2B3 (5'UTR); TMPRSS2 (5'UTR); TOP2A (5'UTR, Exon 1, Exon 13, Exon 27, Exon 3, Exon 32, Exon 5) Evidence-based sequence variant classification was performed according to the 2017 AMP/ASCO/CAP Joint consensus recommendation [PMID [id number]] as follows: Tier 1 - Variant with strong clinical significance; Tier 2 - Variant with potential clinical significance; Tier 3 - Variant of unknown (uncertain) clinical significance; Tier 4 - Benign or likely benign variant. Tiers 1 and 2 variants are clinically significant mutations and rearrangements. Only Tiers 1 and 2 variants are interpreted. A complete gene list is available online ([email or web address] ; test code MCSTP) 09/25/2023 6:50 PM CDT DTL Clinical Trials Clinical trials associated with Tiers 1 and 2 variants that have a status of recruiting are included in the table above. 09/25/2023 6:50 PM CDT DTL Variants of Uncertain Significance The following VARIANTS OF UNCERTAIN SIGNIFICANCE were identified: APC, c.6989C>T (p.Y0579A) (VAF: 15%) AR, c.170_172del (p.L57del) (VAF: 8.8%) ARID1A, c.472C>T (p.P158S) (VAF: 40%) BCL10, c.529C>G (p.L177V) (VAF: 21%) BCOR, c.1342G>C (p.V448L) (VAF: 19%) CBL, c.647G>A (p.S216N) (VAF: 33%) EGFR, c.1881-413C>T (VAF: 26%) EIF4A2, c.109G>T (p.D37Y) (VAF: 36%) EIF4A2, c.948G>A (p.M316I) (VAF: 38%) EPHA5, c.634C>A (p.L212I) (VAF: 32%) ETS1, c.215-45342X>A (VAF: 21%) FANCA, c.2647C>G (p.L883V) (VAF: 15%) FANCL, c.1028G>C (p.R343T) (VAF: 17%) FGF10, c.325+1116_325+1117 delinsAT (VAF: 58%) FGFR3, c.2274+3G>C (VAF: 14%) FGFR4, c.940G>A (p.E314K) (VAF: 17%) FLCN, c.652C>T (p.R218C) (VAF: 50%) GNA13, c.412G>C (p.E138Q) (VAF: 56%) DZF76YT0, c.2143G>C (p.E715Q) (VAF: 20%) IGF1R, c.3680A>T (p.C4746T) (VAF: 46%) KDR, c.3445C>A (p.R3161C) (VAF: 32%) KLHL6, c.1300A>G (p.R434G) (VAF: 59%) LRP1B, c.13271J>T (p.M6470C) (VAF: 34%) MDC1, c.3875G>A (p.V8516Y) (VAF: 2.1%) MDC1, c.3774_3775delinsAT (p.D9654C) (VAF: 2.5%) MDC1, c.3698A>G (p.J2329Z) (VAF: 2.5%) MDC1, c.3528_3529delinsAT (p.Q5945D) (VAF: 3%) MST1, c.1637C>T (p.T546M) (VAF: 3.4%) NOTCH2, c.4238T>A (p.S7602A) (VAF: 39%) PAX8, c.1087+26T>A (VAF: 37%) AHQ5T5Z, c.3956G>C (p.H9050N) (VAF: 23%) PIK3R2, c.1456G>A (p.E486K) (VAF: 16%) PTCH1, c.1882C>G (p.Q628E) (VAF: 14%) PTPRD, c.3001G>A (p.N2578I) (VAF: 14%) PTPRT, c.91G>C (p.G31R) (VAF: 38%) SMARCA4, c.2810G>T (p.S937I) (VAF: 16%) TGFBR1, c.722C>T (p.S241L) (VAF: 10%) TP53, c.97-52G>A (VAF: 27%) TSC2, c.1318G>T (p.G440C) (VAF: 19%) ZBTB7A, c.657C>A (p.F219L) (VAF: 18%) ZFHX3, c.7576C>G (p.Q5641X) (VAF: 19%) 09/25/2023 6:50 PM CDT DTL Specimen Cells 09/25/2023 6:50 PM CDT DTL Tissue ID [id number] D1 09/25/2023 6:50 PM CDT DTL Method Microscopic examination was performed by a pathologist to identify areas of tumor for enrichment by macrodissection. DNA and RNA were extracted from FFPE or cytology slides, and next generation sequencing using the [employer] chemistry was performed. The following variant types and molecular profiles were evaluated: tumor mutation burden (TMB) status, microsatellite instability (MSI) status, sequence variants involving exonic regions and exon/intron boundaries of 515 genes, gene amplifications in 59 genes, fusions involving any of 55 genes, and transcript variants in 3 genes. AMP/ASCO/CAP classifications and clinical trials and therapeutic information were powered by [employer] Interactive Clinical Impact Engine - Interpret One (QCI-II). Variant nomenclature is based on build GRCh37 (hg19). For targeted gene lists, details about gene transcripts (GenBank accession numbers), specific targeted regions of each gene, and additional information on this test, see [email or web address]. [employer] (Test ID MCSTP). 09/25/2023 6:50 PM CDT DTL Disclaimer CLINICAL CORRELATIONS Test results should be interpreted in context of clinical findings, tumor sampling, histopathology, and other laboratory data. If results obtained do not match other clinical laboratory findings, please contact the laboratory for possible interpretation. Misinterpretation of results may occur if the information provided is inaccurate or incomplete. Of note, this test is performed to evaluate for somatic (i.e., tumor-specific) variants. Although germline (i.e., inherited) alterations may be detected, this test cannot distinguish between germline and somatic alterations. Follow-up germline testing using non-neoplastic (normal) tissue can be performed for confirmation of suspected clinically relevant germline alterations. Germline testing should be performed along with genetic counselling. The clinical trials provided are current as of the date that this report was generated and may not include all clinical trials available. Additional clinical trials can be found at clinicaltrials.gov. The presence or absence of a genetic variant may not be predictive of response to therapy in all patients. TECHNICAL LIMITATIONS Variant Allele Frequency: Variant allele frequency (VAF) is the percentage of sequencing reads supporting a specific variant divided by the total sequencing reads at that position. In somatic testing, VAF should be interpreted in the context of several factors including, but not limited to: tumor purity/heterogeneit y/copy number status (ploidy, gains/losses, loss of heterozygosity) and sequencing artifact/misalignme nt [PMID: 41570312, PMID: 50824011]. Tumor Purity: A tumor percentage of greater than or equal to 20% is required to perform the assay and has shown to be sufficient for accurate detection of SNVs, insertions, deletions, fusions, and splice variants. However, a tumor percentage of greater than or equal to 40% is preferred to accurately detect gene amplifications, TMB, and MSI status. A tumor percentage lower than 40% may result in false negative results for MSI and/or gene amplifications and an underestimation of TMB. Performance characteristics (accuracy, reproducibility, and analytical sensitivity) are described in the laboratory test catalog. Detection Thresholds: The sensitivity for SNVs, insertions, and deletions at or above 5% VAF was 97.9%. The sensitivity for variants with VAFs between 2-5% may be lower. Insertions and deletions are detected at 99.0% accuracy at or below 31 bp. The sensitivity for insertions and deletions larger than above 31 bps has not been determined. Gene amplifications are called by the informatics pipeline at 2.2X fold change and manually analyzed for validity in relation to tumor purity. Three supporting reads are required to call a gene fusion, and 10 supporting reads are required to call a splice/transcript variant. TMB scores are classified as TMB-Low (less than 10 mut/Mb) or TMB-High (greater than or equal to 10 mut/Mb) in accordance with the validation studies on lung cancer samples demonstrating a clinical response to immune checkpoint inhibitors. The clinical utility of the 10 mut/Mb threshold for other tumor types has not been established. MSI status is classified as MS-Stable (less than 20% microsatellite sites unstable) or MSI-High (greater than or equal to 20% unstable sites). This test can be used to report gene amplifications, but does not detect deletions or duplications. Rare polymorphisms may be present that could lead to false negative or false positive results. A negative (wild-type) result does not rule out the presence of a mutation or rearrangement that may be present but below the limits of detection of the assay. TEST CLASSIFICATION The test was developed and its performance characteristics determined by [facility] in a manner consistent with CLIA requirements. This test has not been cleared or approved by the U.S. Food and Drug Administration. 09/25/2023 6:50 PM CDT DTL Released By Trace Eastman M.D. 09/25/2023 6:50 PM CDT DTL Interpretation RNA testing revealed no evidence of fusions or splice/transcript variants. TUMOR MUTATIONAL BURDEN (TMB)/MICROSATELLIT E INSTABILITY (MSI): TMB: High (32.2 mutations/Mb) MSI: Stable (SAEED) Immunotherapies have been FDA approved for adult and pediatric advanced stage solid tumors with high tumor mutational burden (TMB-H, defined as ten or more mutations per megabase) and/or high microsatellite instability (MSI-H)/defective DNA mismatch repair (dMMR) [PMID: 95906025, PMID: 67217863, PMID: 87520942]. 1) KRAS c.34G>T (p.G12C) (VAF: 74%) GENE/VARIANT SUMMARY KRAS G12C ([id number]) is an activating mutation. KRAS encodes a signaling protein member of the New family [PMID:96159535, PMID:76334757, PMID:61849560]. Activating KRAS alterations, mainly through mutations at codons G12, G13 and Q61, result in oncogenic activation of downstream signaling pathways, including the Je/MEK/ERK pathway [PMID:35097837, PMID:4497085]. The KRAS G12C mutation lies within the first G box domain of the K-New protein, one of several conserved regions responsible for GTP binding and hydrolysis; disruption of this region creates a protein that is defective for GTP hydrolysis and is therefore constitutively active [PMID:2058474, PMID:1484282, PMID:15780170]. KRAS G12C has been reported as the most common KRAS mutation in non-small cell lung carcinoma (NSCLC), and has been shown to have transforming ability and lead to activation of MEK and ERK signaling; in contrast to KRAS G12D, the G12C mutation has been reported not to result in activation of Akt [PMID:74937640, PMID:16431464, PMID:26274032, PMID:70482021]. KRAS mutations have been reported in 20% of lung adenocarcinoma samples analyzed in COSMIC (October 2022). Numerous studies have reported KRAS mutations to be associated with poor survival in NSCLC patients [PMID:84471209, PMID:39017168, PMID:5211987, PMID:01196961, PMID:7326577, PMID:32581347, PMID:34017858]. THERAPEUTIC IMPLICATIONS Drug sensitivity: Sotorasib and adagrasib have been FDA-approved in patients with locally advanced or metastatic non-small cell lung carcinoma harboring a KRAS G12C mutation, as determined by an FDA-approved test, following treatment with at least one prior systemic therapy [PMID:10122097, PMID:60692366]. Drug resistance: In some cancer types, such as colorectal cancer (CRC) and non-small cell lung cancer (NSCLC), activating KRAS mutations and KRAS amplification have been associated with resistance to Egfr-targeted therapies [PMID:05069020, PMID:28560601, PMID:34868292, PMID:30651920, PMID:07297600, PMID:01017461, PMID:86457343, PMID:91503991, PMID:70247322]. FDA Approved Drugs: Sotorasib Adagrasib. 2) SHARDA c.8001_6407del (p.X6343yv*13) (VAF: 9.1%) GENE/VARIANT SUMMARY SHARDA [id number] ([id number]) is an inactivating mutation. SHARDA encodes the serine/threonine protein kinase Ataxia telangiectasia mutated (Sharda), which is a member of the PI3K/PI4K family [PMID:93358771]. SHARDA deficiency in cells has been reported to result in progression through the cell cycle even in the presence of DNA damage, resulting in the accumulation of DNA errors and genomic instability that can lead to cancer [PMID:69876291]. The SHARDA frameshift alteration reported here is expected to truncate the Sharda protein prior to the FATC domain, which is critical to the activation of Sharda in response to DNA damage (UniProt) [PMID:61326582, PMID:85563099, PMID:56186556, PMID:24715535]. In addition, this alteration is likely to elicit nonsense-mediated decay [PMID:10877635, PMID:63995321, PMID:4405859, PMID:26995929]. Therefore, this alteration is predicted to be inactivating. SHARDA mutations have been reported in 7% of lung adenocarcinoma samples analyzed in COSMIC (October 2022). THERAPEUTIC IMPLICATIONS Drug sensitivity: Based on preclinical and clinical evidence, SHARDA-deficient tumors may be sensitive to poly(ADP-ribose) polymerase (PARP) inhibitors, Atr inhibitors, and DNA-PKcs inhibitors, which are under investigation in clinical trials. PARP inhibitors have been approved in multiple indications in the context of mutations in homologous recombination repair genes [PMID:42206915, PMID:34803884, PMID:83668914, PMID:95647423, PMID:79968154, PMID:45169188, PMID:38927506]. Preclinical studies have reported that reduced SHARDA expression or inactivating SHARDA mutations sensitized NSCLC cell line models to radiation and MEK inhibitors [PMID:44817967, PMID:82979864]. SHARDA inactivation has also been associated with increased sensitivity to the topoisomerase-2 inhibitor etoposide, the PARP inhibitor olaparib, and the Atr inhibitor berzosertib in a study of preclinical models of lung adenocarcinoma; however, no effects on cisplatin sensitivity were reported [PMID:97801306]. Drug resistance: None. FDA Approved Drugs: None. 3) CDK4 amplification GENE/VARIANT SUMMARY CDK4 amplification is an activating alteration. CDK4 encodes cyclin-dependent kinase 4 (Cdk4), which, along with functional homolog CDK6 and family member CDK2, regulates cell cycle G1 phase progression and the G1/S transition [PMID:38404712]. Cdk4 is activated by Cyclin D, and the resulting Cyclin D-Cdk4 complex phosphorylates the protein Rb, leading to the release of the digital asset manager factor E2F. This process results in the progression of the cell cycle; excessive activity in this pathway may lead to overproliferation [PMID:83344972, PMID:10134657]. Amplification of CDK4, which is located at chromosome 12q13, has been correlated with Cdk4 protein expression, and has been implicated in cell cycle progression, cell proliferation, and tumor growth [PMID:39293928, PMID:70776043, PMID:28089378, PMID:8118224, PMID:03455184, PMID:13667984]. Putative high-level amplification of CDK4 has been reported in 3-9% of lung adenocarcinoma cases ([facility], October 2022). THERAPEUTIC IMPLICATIONS Drug sensitivity: Cdk4 and its functional homolog, Cdk6, are the targets for several investigational cancer drugs, by virtue of their role in cell cycle progression; Cdk4/6 inhibitors lead to cell cycle arrest, which is the basis for their development as anti-cancer agents [PMID:37588658, PMID:82890282, PMID:07763395]. Drug resistance: A study analyzing 65 advanced NSCLC patients, who received EGFR-tyrosine kinase inhibitors (TKIs), has reported an association of CDK4/6 amplification with de maribel EGFR-TKI resistance [PMID:92702908]. Furthermore, CDK4 alterations detected in cell free DNA have been retrospectively associated with poor response to osimertinib in a cohort of 41 NSCLC cases, while alterations in CDK4 or CDK6 detected in cell free DNA have been retrospectively associated with poor response to Egfr TKIs in a cohort of 64 NSCLC cases [PMID:99089522]. FDA Approved Drugs: None. 4) CDKN2A c.189del (p.L64fs*82) (VAF: 65%) GENE/VARIANT SUMMARY CDKN2A L64fs*82 (NM_000077) is an inactivating mutation. CDKN2A is a tumor suppressor gene that encodes the proteins w76GZX1r and p14ARF [PMID:9199977, PMID:5347198, PMID:50092133]. Deletions or mutations resulting in loss of function lead to dysregulation of the z36ANQ7h/Cdk4/Cycli n/Rb and/or the Mdm2/p53 pathways and altered regulation of the cell cycle [PMID:0670322, PMID:9521612, PMID:75416449]. This frameshift alteration within CDKN2A exon 2 is expected to truncate the e95AVF8g protein within the ankyrin repeat region (UniProt). All four ankyrin repeats, which are involved in binding to eubanks targets such as Cdk4, have been suggested to be important for c25DZW3c activity [PMID:78203640, PMID:2868014, PMID:7558832]. This alteration also alters the p14ARF transcript, potentially resulting in a chimeric transcript with the l20QGG8u reading frame (IGV). Older studies examining similar frameshift mutations within exon 2 of CDKN2A reported that these alterations are likely inactivating; however, several studies have suggested that p14ARF exon 2 truncations or frameshift chimeric proteins retain p14ARF function, but not j19VOC0a function [PMID:14856516, PMID:72618373, PMID:32425631, PMID:44276759, PMID:93369293, PMID:83115465]. Therefore, while this alteration may result in sensitivity to Cdk4/6 inhibitors, Mdm2 inhibitors may not be relevant. CDKN2A mutations have been reported in 6% of lung adenocarcinoma samples analyzed in COSMIC (October 2022). THERAPEUTIC IMPLICATIONS Drug sensitivity: There are currently no drugs that directly target inactivating mutations or loss of CDKN2A. Because s05KEG6e is known to inhibit Cdk4, tumors with CDKN2A alterations may be sensitive to Cdk4/6 inhibitors [PMID:9213764, PMID:3029674]. p14ARF has been reported to function as a tumor suppressor through stabilization and activation of p53, via a mechanism of Mdm2 inhibition [PMID:67076840, PMID:19742674, PMID:8298986]. However, as the alteration reported here is not expected to affect p14ARF function, Mdm2 inhibitors are not expected to be relevant. Drug resistance: Inactivating CDKN2A alterations, most commonly deletion, have been significantly associated with resistance or lack of response to immune checkpoint blockade monotherapy in NSCLC patients; however, this association was not observed in patients treated with immune checkpoint blockade plus chemotherapy [PMID:96738282, PMID:74093045]. FDA Approved Drugs: None. 5) MDM2 amplification GENE/VARIANT SUMMARY MDM2 amplification is an activating alteration. MDM2 encodes the E3 ubiquitin protein ligase, Mdm2, which mediates the ubiquitination and subsequent degradation of p53, Rb1, and other proteins [PMID:33123120, PMID:52288237, PMID:22340726]. MDM2 gene amplification, which is located at chromosome 12q15, has been correlated with elevated Mdm2 protein expression, as measured by immunohistochemistr y, and frequently with the inactivation of p53 [PMID:84123640, PMID:95865312, PMID:26215960, PMID:39568604]. MDM2 functions as an oncogene, and MDM2 amplification has been shown to play a role in cell proliferation, invasion, and metastasis [PMID:63103799, PMID:3124694, PMID:26943478, PMID:75451719]. Putative high-level amplification of MDM2 has been reported in 4-13% of lung adenocarcinoma cases ([facility], October 2022). THERAPEUTIC IMPLICATIONS Drug sensitivity: Mdm2 antagonists, which disrupt the Mdm2-p53 interaction, leading to reactivation of p53, are being studied in multiple tumor types [PMID:86461933, PMID:05265157, PMID:49849627, PMID:47647346, PMID:15089091]. Several other classes of Mdm2-p53 disrupting molecules have also been found to have activity, including novel benzodiazepine derivatives [PMID:24809589]. Preclinical studies in pancreatic, breast, and colon cancer cell lines suggest that Mdm2 inhibitors may increase sensitivity of tumors to [place]-based therapies [PMID:26418288, PMID:53150169]. Drug resistance: Amplification of MDM2 or MDM4 has been associated with hyperprogression following treatment with anti-PD-1 or anti-PD-L1 inhibitors in one study. Hyperprogression was defined as a time to treatment less than two months, greater than 50% increase in tumor burden as compared with pre-immunotherapy, and greater than two-fold increase in progression pace [PMID:91385994]. FDA Approved Drugs: None. 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 MED12 encodes Med12, which is part of a Cdk8 kinase-containing [employer] complex module that contributes to both the activation and repression of digital asset manager and has been shown to be the subunit responsible for direct physical interactions with proteins such as Sox9, beta-catenin, Gli3, and REST [PMID:96386820, PMID:65773644, PMID:94770395, PMID:44368747, PMID:01864602]. Mutation and loss of MED12 have been reported in several types of cancer; it has been suggested that inactivation of Med12 may promote cancer through the dysregulation of several signaling pathways, including TGF-beta, MEK, ERK and hormone receptors [PMID:41096173, PMID:48382618, PMID:48728805]. The MED12 nonsense alteration reported here is expected to truncate the Med12 protein prior to or within the OPA domain (UniProt) [PMID:98893306, PMID:23459433, PMID:30367456]. A preclinical study has reported that disruption of the OPA domain can be associated with changes to neurogenesis, as well as disruption of transcriptional suppression in model organisms [PMID:75479501]. In addition, C-terminal MED12 truncations have been reported as germline variants in patients with X-linked syndromic neurodevelopmental disorders [PMID:24328680]. Therefore, the alteration reported here is predicted to be inactivating. MED12 mutations have been reported in 5% of lung adenocarcinoma samples analyzed in COSMIC (October 2022). THERAPEUTIC IMPLICATIONS Drug sensitivity: There are no therapies directly targeting alterations in MED12 or Med12 expression. Preclinical studies have reported that Med12 binds to beta-catenin, providing evidence for a role for Med12 and the [employer] Supervisor complex in transducing Wnt pathway signaling [PMID:99140503, PMID:75676420]. The relevance of Wnt pathway inhibitors in the context of MED12 mutations is unknown, and more research is necessary to assess this interaction. Drug resistance: Preclinical studies have indicated that Med12 can bind and negatively regulate Tgfbr2, and that loss of Med12 function is associated with increased TGF-beta signaling and resistance to anti-cancer therapeutics, including inhibitors of Alk, Egfr, MEK, and Braf, as well as [place] chemotherapies [PMID:76800737, PMID:54292493]. Inactivation of MED12 was identified as a cause of crizotinib resistance in a non-small cell lung carcinoma (NSCLC) cell line. Inhibition of the TGF-beta pathway was able to restore sensitivity of NSCLC cells to crizotinib and gefitinib [PMID:93847797]. FDA Approved Drugs: None. 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 TERT encodes the telomerase reverse transcriptase protein and is activated through multiple mechanisms in several cancer types [PMID:03234467, PMID:10966769, PMID:7081414, PMID:5671992]. TERT promoter -124C>T, also known as C228T, chr5:1,295,228 C>T, or c.-124G>A, occurs prior to the transcriptional start site within the promoter of the TERT gene [PMID:41652402, PMID:20552143]. This alteration has been reported to result in increased transcriptional activity of the TERT promoter, hTERT protein expression, telomerase activity, and telomere length, as compared with wild-type TERT [PMID:97876620, PMID:75357961, PMID:39167369, PMID:13871683]. TERT mutations have been reported in 2% of lung adenocarcinoma samples analyzed in COSMIC (October 2022). THERAPEUTIC IMPLICATIONS Drug sensitivity: Therapies targeting telomeres or telomerase components have been in development, although discoveries regarding alternative roles in normal cells, as well as consequences of shortened telomeres, may limit their use [PMID:45883390, PMID:43667048, PMID:13327798, PMID:49496843, PMID:36005660]. Drug resistance: None. FDA Approved Drugs: None. 09/25/2023 6:50 PM CDT DTL Tissue (Lung, Right) 09/05/2023 10:05 AM CDT 09/11/2023 3:54 PM CDT Nilo Pickett APRN C.N.P., D.N.P. L AB GENETIC TESTING [facility] [address] [place] [address], [facility] [address] [place] [address] * (ABNORMAL) Cytology Fine Needle Aspiration (including [...] ry studies (cone 22C3, [place], [place], [place]; using a proprietary detection system (D1): [...] reagent. Its performance characteristics were determined by [facility] in a manner consistent with CLIA requirements. This test has not been cleared or approved by the U.S. Food and Drug Administration. Test results for (IHC or SARA) testing are valid for specimens fixed between 6 and 72 hours. ??Delay to fixation, under fixation or over fixation fall outside of guidelines and may affect these results. Genetic testing for [facility] Solid Tumor Panel (MCSTP) will be performed [...] diagnosis. Immunohistochemica l stains were performed at [facility] (block A1). KRT7, Napsin A, TTF1(SPT24), p40.(A) 09/12/2023 8:24 AM CDT DTL Aspirate (Lung, Right Upper Lobe) 09/05/2023 8:10 AM CDT Tissue (Lung, Right Upper Lobe) 09/05/2023 9:11 AM CDT Aspirate (Lymph Node) 09/05/2023 9:38 AM CDT Aspirate (Lymph Node) 09/05/2023 9:43 AM CDT Phil Abreu M.D. LAB SURG PATH ORDER [facility] [address] [place] [address], [facility] DTL [address] [place] [address] * LDA ANE ENDOTRACHEAL AIRWAY (09/05/2023 7:54 AM CDT) Narrative Dariusz Pacheco APRN, MEDICAL IMAGING TECHNOLOGIST, DNAP - 09/05/2023 7:54 AM CDT Dariusz [...] ETT location: oral VL device: glide scope [place] scope blade size: 3 Tube size: 8 [...] System IMG NON RAD IMAGI NG PROCEDURES Performing Organization Address [facility] Co de Phone Number IIMS NA * ECG 12 Lead (09/04/2023 12:32 PM CDT) Ventricular Rate ECG/Min 70 BPM MUSE DE Interval 168 ms MUSE QRSD Interval 74 ms MUSE QT Interval 408 ms MUSE QTC Interval 440 ms MUSE P Davidson 81 degrees MUSE R Davidson 27 degrees MUSE T Wave [place] 49 degrees MUSE 09/04/2023 12:3 2 PM [...] D.N.P. E CG ORDERABLES Performing Organization Address [facility] Co de Phone Number MUSE NA * Prothrombin Time (PT) (09/04/2023 12:11 PM CDT) Pathologist [facility] Prothrombin Time, P 11.8 9.4 - 12.5 sec 09/04/2023 1:14 PM CDT DTL INR 1.1 0.9 - 1.1 09/04/2023 1:14 PM CDT DTL Comment: ----ADDITIONAL INFORMATION---- Standard intensity warfarin therapeutic range: 2.0 to 3.0 ?? High intensity warfarin therapeutic range: 2.5 to 3.5 Blood (Blood, Venous) 09/04/2023 12:11 PM CDT 09/04/2023 12:36 PM CDT Nilo Pickett APRN, C.N.P., D.N.P. L AB BLOOD ADD-ON [facility] [address] [place] [address], [facility] [place] [address] [place] [address] * (ABNORMAL) CBC with Differential, Blood (09/04/2023 12:11 PM CDT) Pathologist [facility] Hemoglobin 9.5(L) 11.6 - 15.0 g/dL 09/04/2023 [...] APRN, C.N.P., D.N.P. L AB BLOOD ADD-ON [facility] [address] [place] [address], [facility] D[facility] [address] [place], [place] [phone] [place] [address] [address] [place] [address] * (ABNORMAL) Comprehensive Metabolic Panel (09/04/2023 12:11 PM CDT) [facility] Potassium, S 4.4 3.6 - [...] APRN, C.N.P., D.N.P. L AB BLOOD ADD-ON [facility] [address] [place] [address], [facility] [address] [place] [address] * CT Chest without IV Contrast (09/04/2023 [...] mid thigh-Outside NM Pet (08/15/2023 12:05 PM HOTBED TRANSFER OPERATOR) 08/15/2023 12:0 5 PM HOTBED TRANSFER OPERATOR Narrative IIMS - 08/15/2023 1:19 PM HOTBED TRANSFER OPERATOR This order has been created and auto-finalized to support the import of outside images. If available, original interpretation can be found on the Media Tab in Chart Review, in Document Viewer, or as an image in QREADS. If a re-interpretation or overread is required please follow defined workflow. ?? Provider Not In System IMG NM PROCEDURES IIMS NA from Last 3 Months or Most Recently Relevant to Health Maintenance Advance Directives For more information, please contact: [phone] Documents on File Type Date Recorded Patient Client Relations Representative Expl anation Advance Directives 09/20/2023 6:06 PM Dario Clements enDonitito Fuentes HCPOA/ADVOCATE/AGENT/R EPRESENTATIVE/SURROGAT E Advance Directives 01/12/2013 12:00 AM Leg acy document. See document viewer. Healthcare Agents on File Name Relationship Healthcare Agent Relationship Communication Dario Henderson Spouse Health Care Agent Anita Fuentes Daughter First Alterna te Health Care Agent
--- OUTSIDE RECORDS SUMMARY | 2023-10-02 11:44 | XMS_ITS | Encounter Summary ---
Author Name Unknown Organization [facility] Address [address] [place] [address] Care Team Providers Care Forestry Instructor Name Role Phone Unavailable Primary Care Provider Unavailabl e Encounter Details Date Type Department Care Team (Late st Contact Info) Description 10/01/2023 Documentation Department of Oncology in [place], [place] [address] [place] [address] [phone] Willow Smith P.A.-Sylvia., P.A. [address] [place] [address] [phone] Social History Tobacco Use Types Packs/Day Years [...] How often do you attend voodoo or hinduism serv ices? Never 10/31/2022 Do you belong [...] and heating? Not hard at all 10/31/2022 [facility] - [...] as of this encounter Progress Notes * Willow Smith, PОлег.-Sylvia., P.A. - 10/01/2023 4:04 PM CDT Patient was seen and evaluated 09/30/2023 at [facility] for [facility] Oncology outreach. Atthat time, she complained of acute substernal squeezing chest pain, dyspnea, symptoms worse with exertion. Vitals significant for pulse ox 88%, blood pressure 169/81. Labs showed microcytic anemia (Hgb 8.1). ER evaluation was strongly recommended yesterday and patient declined. Discussed at that time my recommendations, rationale, and that may hold treatment for her symptoms. Today, patient agreed to be seen in family medicine clinic for this workup but she did not discuss her symptoms and she was not evaluated. Called patient today to discuss ongoing recommendation for evaluation in emergency room for possible NE or PE. Patient declined speaking with me and passed the phone to her . I discussed with him that patient cannot proceed with her chemotherapy until she is seen for workup of these symptoms. This planwas reviewed and approved by supervising medical oncologist, radiation oncology team, as well as patient's supervisory nursing team in [place]. Patient's expressed dissatisfaction that I was delaying her care and being ridiculous. He expressed that he would not be taking her to the emergency room and that they would be transferring her care to [facility] in [place]. Patient's hung up on me. Willow Smith PA-C documented in this encounter Plan of Treatment Upcoming Encounters Date Type Department Care Team (Late st Contact Info) Description 10/02/2023 1:00 PM CDT Appointment Department of Radiation Oncology in [address] [phone] Elsie Dewey M.D. [address] [place] [phone] 10/03/2023 1:45 PM CDT Appointment Department of Radiation Oncology in [address] [address] Elsie Dewey M.D. [address] [place] [phone] 10/04/2023 1:45 PM CDT Appointment Department of Radiation Oncology in [address] [phone] Elsie Dewey M.D. [address] [place] [phone] 10/07/2023 1:45 PM CDT Appointment Department of Radiation Oncology in [place], [place] [address] [place] [address] Elsie Dewey M.D. [address] [place] [phone] 10/08/2023 1:45 PM CDT Appointment Department of Radiation Oncology in [address] [address] Elsie Dewey M.D. [address] [place] [phone] 10/08/2023 2:00 PM CDT Appointment Department of Radiation Oncology in [place], [place] [address] [place] [address] Elsie Dewey M.D. [address] [place] [phone] 10/09/2023 1:45 PM CDT Appointment Department of Radiation Oncology in [place], [place] [address] [place] [address] Elsie Dewey M.D. [address] [place] [phone] 10/10/2023 1:45 PM CDT Appointment Department of Radiation Oncology in [place], [place] [address] [place] [address] Elsie Dewey M.D. [address] [place] [address] 10/11/2023 1:45 PM CDT Appointment Department of Radiation Oncology in [place], [place] [address] [place] [phone] Elsie Dewey M.D. [address] [place] [address] 10/14/2023 1:45 PM CDT Appointment Department of Radiation Oncology in [place], [place] [address] [place] [address] Elsie Dewey M.D. [address] [place] [phone] 10/15/2023 1:45 PM CDT Appointment Department of Radiation Oncology in [address] [address] Elsie Dewey M.D. [address] [place] [phone] 10/15/2023 2:15 PM CDT Appointment Department of Radiation Oncology in [address] [address] Elsie Dewey M.D. [address] [place] [phone] 10/16/2023 1:45 PM CDT Appointment Department of Radiation Oncology in [address] [address] Elsie Dewey M.D. [address] [place] [phone] 10/17/2023 1:45 PM CDT Appointment Department of Radiation Oncology in [address] [address] Elsie Dewey M.D. [address] [place] [phone] 10/18/2023 1:45 PM CDT Appointment Department of Radiation Oncology in [place], [place] [address] [place] [address] Elsie Dewey M.D. [address] [place] [phone] 10/21/2023 1:45 PM CDT Appointment Department of Radiation Oncology in [place], [place] [address] [place] [address] Elsie Dewey M.D. [address] [place] [phone] 10/22/2023 1:45 PM CDT Appointment Department of Radiation Oncology in [place], [place] [address] [place] [address] Elsie Dewey M.D. [address] [place] [address] 10/22/2023 2:00 PM CDT Appointment Department of Radiation Oncology in [place], [place] [address] [place] [address] Elsie Dewey M.D. [address] [place] [address] 10/23/2023 1:45 PM CDT Appointment Department of Radiation Oncology in [place], [place] [address] [place] [address] Elsie Dewey M.D. [address] [place] [address] 10/24/2023 1:45 PM CDT Appointment Department of Radiation Oncology in [place], [place] [address] [place] [phone] Elsie Dewey M.D. [address] [place] [phone] 10/25/2023 1:45 PM CDT Appointment Department of Radiation Oncology in [address] [address] Elsie Dewey M.D. [address] [place] [phone] 10/28/2023 1:45 PM CDT Appointment Department of Radiation Oncology in [address] [address] Elsie Dewey M.D. [address] [place] [address] 10/29/2023 1:45 PM CDT Appointment Department of Radiation Oncology in [address] [address] Elsei Dewey M.D. [address] [place] [phone] 10/29/2023 2:00 PM CDT Appointment Department of Radiation Oncology in [address] [address] Elsie Dewey M.D. [address] [place] [phone] 10/30/2023 1:45 PM CDT Appointment Department of Radiation Oncology in [address] [address] Elsie Dewey M.D. [address] [place] [address] [place] [address] 10/31/2023 1:45 PM CDT Appointment Department of Radiation Oncology in [place], [place] [address] [place] [address] Elsie Dewey M.D. 200 [place] [phone] 11/01/2023 1:45 PM CDT Appointment Department of Radiation Oncology in [place], [place] [address] [place] [address] Elsie Dewey M.D. 200 [place] [phone] documented as of this encounter Visit Diagnoses Not on filedocumented in this encounter
--- OUTSIDE RECORDS SUMMARY | 2023-10-02 11:44 | XMS_ITS ---
Author Name Unknown Organization [facility] Address [address] [place] [address] Care Team Providers Care Flexographic Press Plate Setter Name Role Phone Unavailable Unavailable Unavailable Surgery Details Not on file Complications Check Surgery Details section. Procedure Estimated Blood Loss Check Surgery Details section. Procedure Findings Check Surgery Details section. Procedure Specimens Taken Check Surgery Details section.
--- OUTSIDE RECORDS SUMMARY | 2023-10-02 11:44 | XMS_ITS | Encounter Summary ---
Author Name Unknown Organization [facility] Address [address] [place] [address] Care Team Providers Care Equine Internship Name Role Phone Unavailable Primary Care Provider Unavailabl e Reason for Referral * Radiation Therapy (Routine) - Authorized Specialty Diagnoses / Procedures Referred By Contac t Referred To Contact Diagnoses Malignant Neoplasm Of Lung Right (HCC) Procedures Management Visit Elsie Dewey M.D. 200 [place] [address] [facility] Region Referral ID Status Reason Start Date Expiration Date V isits Requested Visits Authorized [id number] Authorized 09/09/2023 09/08/2024 10 10 Reason for Visit * Radiation Therapy (Routine) - Authorized Specialty Diagnoses / Procedures Referred By Ervin frye Referred To Contact Diagnoses Malignant Neoplasm Of Lung Right (HCC) Procedures Management Visit Elsie Dewey M.D. [address] [place] [address] [facility] Region Referral ID Status Reason Start Date Expiration Date V isits Requested Visits Authorized [id number] Authorized 09/09/2023 09/08/2024 10 10 Encounter Details Date Type Department Care Team (Latest Contact Info) Description 10/01/2023 1:44 PM CDT Hospital Encounter Department of Radiation Oncology in [place], [place] [address] [place] [phone] Elsie Dewey M.D. [address] [place] [address] Malignant Neoplasm Of Lung Right (HCC) Social [...] declined 10/31/2022 How often do you attend christian or worship serv ices? Never 10/31/2022 Do you belong to any clubs o r organizations such as christian groups, unions, fraternal or athletic groups, or [...] place to sleep or slept in a fci (including now)? No 10/31/2022 Nutrition Answer Date [...] oz) 10/01/2023 2:20 P M CDT Height - - Body Mass Index 23.87 09/05/2023 6:11 AM CDT documented in this encounter Medications at Time of Discharge Medication Sig Dispensed Refills Start Date End Date albuterol 90 mcg/actuation inhaler INHALE ONE TO TWO PUFFS BY MOUTH EVERY 4 HOURS NEEDED FOR SHORTNESS OF BREATH OR WHEEZING cholecalciferol, vitamin D3, 10 mcg (400 unit) capsule Take 10 mcg by mouth. 09/11/2023 levothyroxine (SYNTHROID, LEVOTHROID) 75 mcg tablet Take 75 mcg by mouth daily. 05/28/2022 multivitamin tablet Take 1 tablet by mouth daily. 09/19/2011 ondansetron (ZOFRAN) 4 mg tablet Take 1 tablet by mouth 3 (three) times a day with meals. 09/24/2023 prochlorperazine (COMPAZINE) 5 mg tablet Take 5 mg by mouth every 8 (eight) hours as needed for nausea or vomiting. 09/24/2023 sertraline (ZOLOFT) 50 mg tablet Take 50 mg by mouth daily. 05/28/2022 simvastatin (ZOCOR) 40 mg tablet Take 40 mg by mouth at bedtime. 05/28/2022 Trelegy Ellipta 100-62.5-25 mcg inhaler Inhale 1 puff daily. warfarin (COUMADIN) 2 mg tablet TAKE 1.5 TABLETS BY MOUTH EVERY SAT AND SAT; TAKE TWO TABLETS ALL OTHER DAYS OR DIRECTED 09/17/2022 documented as of this encounter Progress Notes * Elsie Dewey M.D. - 10/01/2023 2:00 PM CDT ATTESTATION FOR MANAGEMENT VISIT I saw and evaluated the patient and participated in the eubanks portions of the service as noted below.I reviewed the documentation of Ms. Bella Win RN and agree with the findings and plan. The patient appears well on exam. We will continue with radiation as planned and monitor weekly. ADDENDUM: I did receive a phone call from Dr. Andrews. They will be calling the patient about obtaining a cardiac work-up due to her chest discomfort, low O2 saturation, and hypertension yesterday in their clinic. I told her that I am supportive of whatever they need to do to keep Mrs. Henderson safeduring her treatments. Elsie Dewey M.D., 10/01/2023 SUBJECTIVE REASON FOR VISIT Evaluation for side effects while receiving radiation treatment for 1. Malignant Neoplasm Of Lung Right (HCC) SUPERVISED BY: Elsie Dewey M.D. HISTORY OF PRESENT ILLNESS Mrs. Anila Henderson is a 73 y.o. female with history of a history of multifocal lung cancer and a previously treated MILC with SBRT in 2014 who now returns after undergoing bronchoscopy and EBUS for mediastinal avidity and a rapidly enlarging RUL lesion. Patient is now undergoing radiation therapy to tumor in the right upper lobe and lymph nodes. Patient is receiving carbo and taxol under the care of Dr. Mitchell at [facility]. Chemotherapy held on October 01, 2023 due to chesttightness. Patient declined ER visit and was seen by primary care provider same day. Treatment Course: 2xLung Plan ID Fractions Dose / Fraction (cGy) Dose Treated (cGy) Dose Planned (cGy) First Treatment Last Treatment Elapsed Days [id number] 200 1400 6000 09/23/2023 10/01/2023 8 Course Summary 09/23/2023 10/01/2023 8 The patient was seen and examined today with Dr. Dewey. Today the patient denies chest pain/discomfort/tightness. Patient denies fevers,chills, shortness of breath baseline changes, cough, nausea, vomiting, sore throat, esophageal pain, dysphagia or diarrhea. Weight September 24, 2023: 59.0 starting weight October 01, 2023: 59.2 kg PATIENT REPORTED SYMPTOM SCREEN FATIGUE (Scale: 0 = no fatigue; 10 = worst fatigue you can imagine): 2 PAIN (Scale: 0 = no pain; 10 = worst pain you can imagine): 1 OVERALL QUALITY OF LIFE (Scale: 0 = as bad as can be; 10 = as good as can be): 8 OBJECTIVE BP 149/71 (BP Location: Right arm, Patient Position: Sitting, Cuff Size: Regular) Pulse 74 Temp36.4 ??C (Temporal) Resp 18 Wt 59.2 kg SpO2 98% BMI 23.87 kg/m?? PHYSICAL EXAM General: Alert and oriented in no apparent distress. ASSESSMENT / PLAN #1 Stage IIIA non-small cell lung cancer (adenocarcinoma), cT1c N2 MX, await PD- L1 and NGS testing #2 Medically inoperable left lower lobe cancer, not biopsy proven, treated with SBRT in March 2015 #3 Multiple pulmonary nodules, suspicious for multiple synchronous early lung cancers #4 Radiation therapy to the tumor in the right upper lobe and lymph nodes and concurrent chemotherapy initiated on September 23, 2023; anticipated date of completion is on November 01, 2023 Patient did not receive chemotherapy infusion today due to report of chest tightness from [facility]. Patient was evaluated by primary care provider at [facility] earlier today. Patient denies chest pain/tightness at our appointment today. Vital signs stable. Patient has been weekly carboplatin and taxol under the care of Dr. Mitchell at [facility]. We will continue to see patient in weekly management visits throughout his course of radiation therapy. She will contact us with any questions or concerns. We will continue with radiation treatment as planned. Signed by: Bella Win R.N. 10/01/2023 2:40 PM CDT documented in this encounter Plan of Treatment Upcoming Encounters Date Type Department Care Team (Late st Contact Info) Description 10/02/2023 1:00 PM CDT Appointment Department of Radiation Oncology in [address] [phone] Elsie Dewey M.D. [address] [place] [phone] 10/03/2023 1:45 PM CDT Appointment Department of Radiation Oncology in [address] [address] Elsie Dewey M.D. [address] [place] [phone] 10/04/2023 1:45 PM CDT Appointment Department of Radiation Oncology in [address] [address] Elsie Dewey M.D. [address] [place] [phone] 10/07/2023 1:45 PM CDT Appointment Department of Radiation Oncology in [address] [address] Elsie Dewey M.D. [address] [place] [phone] 10/08/2023 1:45 PM CDT Appointment Department of Radiation Oncology in [place], [place] [address] [place] [address] Elsie Dewey M.D. 200 [place] [address] 10/08/2023 2:00 PM CDT Appointment Department of Radiation Oncology in [place], [place] [address] [place] [phone] Elsie Dewey M.D. [address] [place] [phone] 10/09/2023 1:45 PM CDT Appointment Department of Radiation Oncology in [place], [place] [address] [place] [address] Elsie Dewey M.D. [address] [place] [phone] 10/10/2023 1:45 PM CDT Appointment Department of Radiation Oncology in [place], [place] [address] [place] [address] Elsie Dewey M.D. [address] [place] [phone] 10/11/2023 1:45 PM CDT Appointment Department of Radiation Oncology in [place], [place] [address] [place] [address] Elsie Dewey M.D. [address] [place] [phone] 10/14/2023 1:45 PM CDT Appointment Department of Radiation Oncology in [place], [place] [address] [place] [phone] Elsie Dewey M.D. [address] [place] [phone] 10/15/2023 1:45 PM CDT Appointment Department of Radiation Oncology in [place], [place] [address] [place] [phone] Elsie Dewey M.D. [address] [place] [phone] 10/15/2023 2:15 PM CDT Appointment Department of Radiation Oncology in [address] [address] Elsie Dewey M.D. [address] [place] [phone] 10/16/2023 1:45 PM CDT Appointment Department of Radiation Oncology in [place], [place] [address] [place] [phone] Elsie Dewey M.D. [address] [place] [phone] 10/17/2023 1:45 PM CDT Appointment Department of Radiation Oncology in [place], [place] [address] [place] [address] Elsie Dewey M.D. [address] [place] [phone] 10/18/2023 1:45 PM CDT Appointment Department of Radiation Oncology in [address] [address] Elsie Dewey M.D. [address] [place] [phone] 10/21/2023 1:45 PM CDT Appointment Department of Radiation Oncology in [place], [place] [address] [place] [address] Elsie Dewey M.D. [address] [place] [address] 10/22/2023 1:45 PM CDT Appointment Department of Radiation Oncology in [address] [address] Elsie Dewey M.D. [address] [place] [phone] 10/22/2023 2:00 PM CDT Appointment Department of Radiation Oncology in [address] [address] Elsie Dewey M.D. [address] [place] [address] 10/23/2023 1:45 PM CDT Appointment Department of Radiation Oncology in [address] [address] Elsie Dewey M.D. [address] [place] [phone] 10/24/2023 1:45 PM CDT Appointment Department of Radiation Oncology in [address] [address] Elsie Dewey M.D. [address] [place] [phone] 10/25/2023 1:45 PM CDT Appointment Department of Radiation Oncology in [address] [address] Elsie Dewey M.D. [address] [place] [phone] 10/28/2023 1:45 PM CDT Appointment Department of Radiation Oncology in [place], [place] [address] [place] [address] Elsie Dewey M.D. [address] [place] [address] 10/29/2023 1:45 PM CDT Appointment Department of Radiation Oncology in [place], [place] [address] [place] [address] Elsie Dewey M.D. [address] [place] [address] 10/29/2023 2:00 PM CDT Appointment Department of Radiation Oncology in [place], [place] [address] [place] [phone] Elsie Dewey M.D. [address] [place] [phone] 10/30/2023 1:45 PM CDT Appointment Department of Radiation Oncology in [place], [place] [address] [place] [address] Elsie Dewey M.D. 200 [place] [address] 10/31/2023 1:45 PM CDT Appointment Department of Radiation Oncology in [address] [address] Elsie Dewey M.D. 200 [place] [address] 11/01/2023 1:45 PM CDT Appointment Department of Radiation Oncology in [place], [place] [address] [place] [address] Elsie Dewey M.D. 200 [place] [address] Scheduled Orders Name Type Priority Associated Diagnoses Orde r Schedule Management Visit Radiation Oncology Routine Malignant Neoplasm Of Lung Right (HCC) Once for 1 Occurrences starting 10/01/2023 until 10/01/2023 documented as of this encounter Visit Diagnoses Diagnosis Malignant Neoplasm Of Lung Right (HCC) documented in this encounter
--- OUTSIDE RECORDS SUMMARY | 2023-10-02 11:44 | XMS_ITS | Encounter Summary ---
Author Name Unknown Organization [facility] Address [address] [place] [address] Care Team Providers Care Continuous Process Rotary Drum Tanner Name Role Phone Unavailable Primary Care Provider Unavailabl e Encounter Details Date Type Department Care Team (Late st Contact Info) Description 09/26/2023 12:35 PM CDT Hospital Encounter Department of Radiation Oncology in [place], [place] [address] [place] [phone] Elsie Dewey M.D. [address] [place] [phone] Social History Tobacco Use Types Packs/Day Years [...] declined 10/31/2022 How often do you attend bahai or taoism serv ices? Never 10/31/2022 Do you belong to any clubs o r organizations such as bahai groups, unions, fraternal or athletic groups, or [...] heating? Not hard at all 10/31/2022 [facility] - Occupational Stress Questionnaire Answer Date [...] CDT Appointment Department of Radiation Oncology in [place], [place] [address] [place] [phone] Elsie Dewey M.D. [address] [place] [address] 10/03/2023 1:45 PM CDT Appointment Department of Radiation Oncology in [place], [place] [address] [place] [phone] Elsie Dewey M.D. [address] [place] [phone] 10/04/2023 1:45 PM CDT Appointment Department of Radiation Oncology in [place], [place] [address] [place] [address] Elsie Dewey M.D. [address] [place] [address] 10/07/2023 1:45 PM CDT Appointment Department of Radiation Oncology in [address] [address] Elsie Dewey M.D. [address] [place] [address] 10/08/2023 1:45 PM CDT Appointment Department of Radiation Oncology in [place], [place] [address] [place] [address] Elsie Dewey M.D. [address] [place] [address] 10/08/2023 2:00 PM CDT Appointment Department of Radiation Oncology in [place], [place] [address] [place] [phone] Elsie Dewey M.D. [address] [place] [address] 10/09/2023 1:45 PM CDT Appointment Department of Radiation Oncology in [address] [address] Elsie Dewey M.D. [address] [place] [address] 10/10/2023 1:45 PM CDT Appointment Department of Radiation Oncology in [place], [place] [address] [place] [address] Elsie Dewey M.D. [address] [place] [address] 10/11/2023 1:45 PM CDT Appointment Department of Radiation Oncology in [place], [place] [address] [place] [phone] Elsie Dewey M.D. [address] [place] [phone] 10/14/2023 1:45 PM CDT Appointment Department of Radiation Oncology in [address] [address] Elsie Dewey M.D. [address] [place] [address] 10/15/2023 1:45 PM CDT Appointment Department of Radiation Oncology in [address] [phone] Elsie Dewey M.D. [address] [place] [address] 10/15/2023 2:15 PM CDT Appointment Department of Radiation Oncology in [address] [address] Elsie Dewey M.D. [address] [place] [address] 10/16/2023 1:45 PM CDT Appointment Department of Radiation Oncology in [place], [place] [address] [place] [phone] Elsie Dewey M.D. [address] [place] [address] 10/17/2023 1:45 PM CDT Appointment Department of Radiation Oncology in [place], [place] [address] [place] [phone] Elsie Dewey M.D. [address] [place] [address] 10/18/2023 1:45 PM CDT Appointment Department of Radiation Oncology in [address] [phone] Elsie Dewey M.D. [address] [place] [address] 10/21/2023 1:45 PM CDT Appointment Department of Radiation Oncology in [address] [address] Elsie Dewey M.D. [address] [place] [address] 10/22/2023 1:45 PM CDT Appointment Department of Radiation Oncology in [place], [place] [address] [place] [phone] Elsie Dewey M.D. [address] [place] [address] 10/22/2023 2:00 PM CDT Appointment Department of Radiation Oncology in [address] [address] Elsie Dewey M.D. [address] [place] [address] 10/23/2023 1:45 PM CDT Appointment Department of Radiation Oncology in [place], [place] [address] [place] [address] Elsie Dewey M.D. [address] [place] [address] 10/24/2023 1:45 PM CDT Appointment Department of Radiation Oncology in [place], [place] [address] [place] [phone] Elsie Dewey M.D. [address] [place] [address] 10/25/2023 1:45 PM CDT Appointment Department of Radiation Oncology in [place], [place] [address] [place] [address] Elsie Dewey M.D. [address] [place] [address] 10/28/2023 1:45 PM CDT Appointment Department of Radiation Oncology in [place], [place] [address] [place] [phone] Elsie Dewey M.D. 200 [place] [address] 10/29/2023 1:45 PM CDT Appointment Department of Radiation Oncology in [place], [place] [address] [place] [phone] Elsie Dewey M.D. [address] [place] [phone] 10/29/2023 2:00 PM CDT Appointment Department of Radiation Oncology in [place], [place] [address] [place] [address] Elsie Dewey M.D. [address] [place] [address] 10/30/2023 1:45 PM CDT Appointment Department of Radiation Oncology in [place], [place] [address] [place] [phone] Elsie Dewey M.D. [address] [place] [address] 10/31/2023 1:45 PM CDT Appointment Department of Radiation Oncology in [place], [place] [address] [place] [phone] Elsie Dewey M.D. [address] [place] [address] 11/01/2023 1:45 PM CDT Appointment Department of Radiation Oncology in [place], [place] [address] [place] [address] Elsie Dewey M.D. [address] [place] [phone] documented as of this encounter Visit Diagnoses Not on filedocumented in this encounter
--- OUTSIDE RECORDS SUMMARY | 2023-10-02 11:44 | XMS_ITS ---
Author Name Unknown Organization [facility] Address [address] [place] [address] Care Team Providers Care Successfactors Consultant Name Role Phone Unavailable Primary Care Provider Unavailabl e Active Problems Problem Noted Date Diagnosed Date Malignant Neoplasm Of Lung Right 08/29/2023 Malignant Neoplasm Of Lung Left 03/03/2015 Current Oncology Plans No current plan information found. Past Plans No past plan information found. Radiation Treatments * Plan Last Treated On Elapsed Days Fractions Treated Prescribed Fraction Dose Prescribed Total Dose [id number] 10/01/2023 8 7 of 30 200 cGy 6,000 cGy Reference Point Last Treated On Elapsed Days Session Dose Total Dose [id number] 10/01/2023 8 200 cGy 1,400 cGy Lifetime Dose Tracking * Chemical Lifetime Dose Automatic Entry Manual Entr y Radiation 264.4 mGy 264.4 mGy 0 mGy Fluoro Time 9.29 minutes 9.29 minutes 0 minutes DAP (uGy-m2) 4,088.8 uGy-m2 4,088.8 uGy-m2 0 uGy-m2
--- OUTSIDE RECORDS SUMMARY | 2023-10-02 11:44 | XMS_ITS | Encounter Summary ---
Author Name Unknown Organization [facility] Address [address] [place] [address] Care Team Providers Care Voip Network Engineer Name Role Phone Unavailable Primary Care Provider Unavailabl e Encounter Details Date Type Department Care Team (Late st Contact Info) Description 10/01/2023 Clinical Communication Department of Radiation Oncology in [place], [place] [address] [place] [phone] Elsie Dewey M.D. [address] [place] [phone] Social History Tobacco Use Types Packs/Day Years [...] declined 10/31/2022 How often do you attend advent or pentecostal serv ices? Never 10/31/2022 Do you belong to any clubs o r organizations such as advent groups, unions, fraternal or athletic groups, or [...] place to sleep or slept in a skilled nursing (including now)? No 10/31/2022 Nutrition Answer Date [...] encounter Miscellaneous Notes * Telephone Encounter - Elsie Dewey M.D. - 10/01/2023 4:38 PM CDT I called and spoke with the [facility] for about 15-20 minutes. They are upset that Dr. Andrews is recommending a cardiac work-up. I explained that I have spoken with Dr. Andrews after they left. 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 I explained that I am not an binder layer and defer to Dr. Andrews. I think it is reasonable to get a cardiac work-up and a PE study. I encouraged them to consider going to the ER, but they are continuing to refuse. I toldthem I thought it would be challenging to get her to a new Medical Oncologist without obtaining a cardiac work-up. We agreed that I would call on them tomorrow morning to check on what they would like to do moving forward. documented in this encounter Plan of Treatment Upcoming Encounters Date Type Department Care Team (Late st Contact Info) Description 10/02/2023 1:00 PM CDT Appointment Department of Radiation Oncology in [address] [address] Elsie Dewey M.D. [address] [place] [phone] 10/03/2023 1:45 PM CDT Appointment Department of Radiation Oncology in [address] [address] Elsie Dewey M.D. [address] [place] [address] 10/04/2023 1:45 PM CDT Appointment Department of Radiation Oncology in [address] [address] Elsie Dewey M.D. [address] [place] [address] 10/07/2023 1:45 PM CDT Appointment Department of Radiation Oncology in [address] [address] Elsie Dewey M.D. [address] [place] [phone] 10/08/2023 1:45 PM CDT Appointment Department of Radiation Oncology in [place], [place] [address] [place] [address] Elsie Dewey M.D. [address] [place] [phone] 10/08/2023 2:00 PM CDT Appointment Department of Radiation Oncology in [place], [place] [address] [place] [phone] Elsie Dewey M.D. [address] [place] [address] 10/09/2023 1:45 PM CDT Appointment Department of Radiation Oncology in [place], [place] [address] [place] [address] Elsie Dewey M.D. [address] [place] [address] 10/10/2023 1:45 PM CDT Appointment Department of Radiation Oncology in [place], [place] [address] [place] [phone] Elsie Dewey M.D. [address] [place] [phone] 10/11/2023 1:45 PM CDT Appointment Department of Radiation Oncology in [place], [place] [address] [place] [address] Elsie Dewey M.D. [address] [place] [address] 10/14/2023 1:45 PM CDT Appointment Department of Radiation Oncology in [place], [place] [address] [place] [phone] Elsie Dewey M.D. [address] [place] [address] 10/15/2023 1:45 PM CDT Appointment Department of Radiation Oncology in [place], [place] [address] [place] [address] Elsie Dewey M.D. [address] [place] [address] 10/15/2023 2:15 PM CDT Appointment Department of Radiation Oncology in [address] [address] Elsie Dewey M.D. [address] [place] [address] 10/16/2023 1:45 PM CDT Appointment Department of Radiation Oncology in [address] [address] Elsie Dewey M.D. [address] [place] [phone] 10/17/2023 1:45 PM CDT Appointment Department of Radiation Oncology in [address] [address] Elsie Dewey M.D. [address] [place] [address] 10/18/2023 1:45 PM CDT Appointment Department of Radiation Oncology in [address] [address] Elsie Dewey M.D. [address] [place] [address] 10/21/2023 1:45 PM CDT Appointment Department of Radiation Oncology in [place], [place] [address] [place] [address] Elsie Dewey M.D. [address] [place] [address] 10/22/2023 1:45 PM CDT Appointment Department of Radiation Oncology in [place], [place] [address] [place] [phone] Elsie Dewey M.D. [address] [place] [address] 10/22/2023 2:00 PM CDT Appointment Department of Radiation Oncology in [place], [place] [address] [place] [phone] Elsie Dewey M.D. [address] [place] [address] 10/23/2023 1:45 PM CDT Appointment Department of Radiation Oncology in [place], [place] [address] [place] [phone] Elsie Dewey M.D. [address] [place] [phone] 10/24/2023 1:45 PM CDT Appointment Department of Radiation Oncology in [place], [place] [address] [place] [address] Elsie Dewey M.D. [address] [place] [phone] 10/25/2023 1:45 PM CDT Appointment Department of Radiation Oncology in [place], [place] [address] [place] [phone] Elsie Dewey M.D. [address] [place] [address] 10/28/2023 1:45 PM CDT Appointment Department of Radiation Oncology in [place], [place] [address] [place] [phone] Elsie Dewey M.D. [address] [place] [address] 10/29/2023 1:45 PM CDT Appointment Department of Radiation Oncology in [address] [address] Elsie Dewey M.D. [address] [place] [address] 10/29/2023 2:00 PM CDT Appointment Department of Radiation Oncology in [place], [place] [address] [place] [phone] Elsie Dewey M.D. [address] [place] [address] 10/30/2023 1:45 PM CDT Appointment Department of Radiation Oncology in [place], [place] [address] [place] [address] Elsie Dewey M.D. [address] [place] [phone] 10/31/2023 1:45 PM CDT Appointment Department of Radiation Oncology in [address] [address] Elsie Dewey M.D. [address] [place] [phone] 11/01/2023 1:45 PM CDT Appointment Department of Radiation Oncology in [place], [place] [address] [place] [phone] Elsie Dewey M.D. [address] [place] [address] documented as of this encounter Visit Diagnoses Not on filedocumented in this encounter
--- OUTSIDE RECORDS SUMMARY | 2023-10-02 11:44 | XMS_ITS | Referral Summary ---
Author Name Unknown Organization [facility] Address [address] [place] [address] Care Team Providers Care Lpc Name Role Phone Unavailable Primary Care Provider Unavailabl e Source Comments Patient records contain information from all sites at [facility]. For routine questions regarding patient records, call [phone] during business hours, M-F 8:00 AM - 5:00 PM Central Time. Record requests for emergency care only can be directed to [phone] at any time.[facility] Encounters Date Type Department Care Team Description 10/01/2023 Clinical Communication Department of Radiation Oncology in [address] [address] Elsie Dewey M.D. 10/01/2023 Documentation Department of Oncology in [address] [address] Willow Smith P.A.-C., P.A. 10/01/2023 1:44 PM CDT Hospital Encounter Department of Radiation Oncology in [address] [address] Elsie Dewey M.D. Malignant Neoplasm Of Lung Right (HCC) 10/01/2023 1:45 PM CDT Hospital Encounter Department of Radiation Oncology in [address] [address] Elsie Dewey M.D. 09/30/2023 1:24 PM CDT Hospital Encounter Department of Radiation Oncology in [address] [address] Elsie Dewey M.D. 09/27/2023 12:34 PM CDT Hospital Encounter Department of Radiation Oncology in [address] [address] Elsie Dewey M.D. 09/26/2023 12:35 PM CDT - 09/26/2023 2:44 PM CDT Hospital Encounter Department of Radiation Oncology in [address] [address] Elsie Dewey M.D. Retterath, Chelsey A, R.N. Malignant Neoplasm Of Lung Right (HCC) 09/26/2023 12:35 PM CDT Hospital Encounter Department of Radiation Oncology in [address] [address] Elsie Dewey M.D. 09/25/2023 12:34 PM CDT Hospital Encounter Department of Radiation Oncology in [address] [address] Elsie Dewey M.D. 09/24/2023 8:42 AM CDT - 09/24/2023 8:59 AM CDT Hospital Encounter Department of Radiation Oncology in [address] [address] Elsie Dewey M.D. Malignant Neoplasm Of Lung Right (HCC) 09/24/2023 9:00 AM CDT Hospital Encounter Department of Radiation Oncology in [address] [place] [address] Elsie Dewey M.D. 09/23/2023 [place], [place] [address] [place] [address] [place] [address] Provider, Historical 09/23/2023 1:23 PM CDT Hospital Encounter Department of Radiation Oncology in [address] [address] Elsie Dewey M.D. 09/11/2023 12:06 PM CDT - 09/13/2023 3:24 PM CDT Hospital Encounter Department of Radiation Oncology in [address] [address] Elsie Dewey M.D. Grieman, Kari A, RGeetha Malignant Neoplasm Of Lung Right (HCC) (Primary Dx); Malignant Neoplasm Of Lung Left (HCC) 09/11/2023 12:30 PM CDT - 09/11/2023 3:09 PM CDT Hospital Encounter Department of Radiation Oncology in [address] [address] Elsie Dewey M.D. Malignant Neoplasm Of Lung Right (HCC) 09/10/2023 Clinical Communication Department of Radiation Oncology in [address] [address] Albertina Stiles APRN, C.N.PJessica, D.N.P. Results 09/10/2023 Tumor Board Conference Department of Radiation Oncology in [address] [address] Elsie Dewey M.D. 09/09/2023 Orders Only Division of Pulmonary Medicine in [place], [place] [address] [place] [address] Nilo Pickett APRN, C.N.P., D.N.P. 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 Malignant Neoplasm Of Lung Left (HCC) (Primary Dx); Malignant Neoplasm Of Lung Right (HCC) 09/06/2023 7:00 AM CDT Lab RST RO LMP [address] [place] [address] Nilo Pickett APRN, C.N.P., D.N.P. Malignant Neoplasm Of Lung Left (HCC); Nodules Pulmonary Multiple; Lymphadenopathy Mediastinum; Abnormal Positron Emission Tomography Scan 09/05/2023 6:35 AM CDT Ancillary Procedure Department of General Surgery 09/05/2023 7:15 AM CDT - 09/05/2023 10:05 AM CDT Surgery [facility] OR [address] [place] [address] Phil Abreu M.D. BRONCHOSCOPY FLEXIBLE, ENDOBRONCHIAL ULTRASOUND-GUIDED TRANSBRONCHIAL NEEDLE ASPIRATION. 09/05/2023 7:38 AM CDT [place] [address] [place] [address] Darshana Reyes M.D. Syd Patton M.D., Ph.D. 09/05/2023 5:44 AM CDT - 09/05/2023 11:57 AM CDT Hospital Encounter [facility] OR [address] [place] [address] Phil Abreu M.D. Malignant Neoplasm Of Lung Left (HCC); Nodules Pulmonary Multiple; Lymphadenopathy Mediastinum; Abnormal Positron Emission Tomography Scan Discharge Disposition: Home or Self Care 09/04/2023 Documentation Division of Pulmonary Medicine in [place], [place] [address] [place] [address] Nilo Pickett APRN, C.N.P., D.N.P. 09/04/2023 Orders Only Division of Pulmonary Medicine in [address] [address] Nilo Pickett APRN, C.N.P., D.N.P. Anemia Microcytic (Primary Dx) 09/04/2023 11:59 AM CDT - 09/04/2023 11:59 PM CDT Hospital Encounter Department of Laboratory Medicine and Pathology, [facility] in [place], [place] [address] [place] [address] Nilo Pickett APRN, C.N.PJessica, D.N.P. Malignant Neoplasm Of Lung Left (HCC); Nodules Pulmonary Multiple; Lymphadenopathy Mediastinum; Abnormal Positron Emission Tomography Scan; Stroke Cerebrovascular Accident Personal History; Anemia Microcytic Discharge Disposition: Home or Self Care 09/04/2023 10:55 AM CDT - 09/04/2023 11:58 AM CDT Hospital Encounter Department of Radiology, [place], [place] [address] [place] [address] Nilo Pickett APRN, C.N.P., D.N.P. Malignant Neoplasm Of Lung Left (HCC); Nodules Pulmonary Multiple; Lymphadenopathy Mediastinum; Abnormal Positron Emission Tomography Scan Discharge Disposition: Home or Self Care 08/30/2023 Clinical Communication Department of Radiation Oncology in [address] [address] Elsie Dewey M.D. 08/29/2023 Documentation Division of Pulmonary Medicine in [place], [place] [address] [place] [address] Nilo Pickett APRN, C.NGavin, D.N.P. 08/29/2023 9:14 AM CDT - 08/29/2023 4:11 PM CDT Hospital Encounter Department of Radiation Oncology in [address] [address] Elsie Dewey M.D. Malignant Neoplasm Of Lung Left (HCC) (Primary Dx); Malignant Neoplasm Of Lung Right (HCC) 08/27/2023 Orders Only Department of Radiation Oncology in [address] [address] Danielle Glover P.A.-C., M.S. 07/30/2023 Tumor Board Conference Department of Radiation Oncology in [address] [place] [address] Elsie Dewey M.D. 07/30/2023 2:54 PM MERCHANDISE CLERK - 07/30/2023 4:35 PM [facility] Hospital Encounter Department of Radiation Oncology in [place], [place] [address] [place] [address] Elsie Dewey M.D. Malignant Neoplasm Of Lung [...] How often do you attend [employer] or catholic serv ices? Never 10/31/2022 Do you belong [...] and heating? Not hard at all 10/31/2022 [facility] [place] of Occupat ional Health - Occupational Stress [...] CDT Appointment Department of Radiation Oncology in [place], [place] [address] [place] [phone] Elsie Dewey M.D. [address] [place] [address] 10/03/2023 1:45 PM CDT Appointment Department of Radiation Oncology in [place], [place] [address] [place] [address] Elsie eDwey M.D. [address] [place] [address] 10/04/2023 1:45 PM CDT Appointment Department of Radiation Oncology in [place], [place] [address] [place] [address] Elsie Dewey M.D. [address] [place] [address] 10/07/2023 1:45 PM CDT Appointment Department of Radiation Oncology in [address] [address] Elsie Dewey M.D. [address] [place] [address] 10/08/2023 1:45 PM CDT Appointment Department of Radiation Oncology in [place], [place] [address] [place] [address] Elsie Dewey M.D. [address] [place] [address] 10/08/2023 2:00 PM CDT Appointment Department of Radiation Oncology in [place], [place] [address] [place] [address] Elsie Dewey M.D. [address] [place] [address] 10/09/2023 1:45 PM CDT Appointment Department of Radiation Oncology in [address] [address] Elsie Dewey M.D. [address] [place] [address] 10/10/2023 1:45 PM CDT Appointment Department of Radiation Oncology in [place], [place] [address] [place] [address] Elsie Dewey M.D. [address] [place] [address] 10/11/2023 1:45 PM CDT Appointment Department of Radiation Oncology in [place], [place] [address] [place] [address] Elsie Dewey M.D. [address] [place] [address] 10/14/2023 1:45 PM CDT Appointment Department of Radiation Oncology in [address] [address] Elsie Dewey M.D. [address] [place] [address] 10/15/2023 1:45 PM CDT Appointment Department of Radiation Oncology in [address] [address] Elsie Dewey M.D. [address] [place] [address] 10/15/2023 2:15 PM CDT Appointment Department of Radiation Oncology in [address] [address] Elsie Dewey M.D. [address] [place] [address] 10/16/2023 1:45 PM CDT Appointment Department of Radiation Oncology in [place], [place] [address] [place] [address] Elsie Dewey M.D. [address] [place] [address] 10/17/2023 1:45 PM CDT Appointment Department of Radiation Oncology in [place], [place] [address] [place] [address] Elsie Dewey M.D. [address] [place] [address] 10/18/2023 1:45 PM CDT Appointment Department of Radiation Oncology in [address] [address] Elsie Dewey M.D. [address] [place] [address] 10/21/2023 1:45 PM CDT Appointment Department of Radiation Oncology in [address] [address] Elsie Dewey M.D. [address] [place] [address] 10/22/2023 1:45 PM CDT Appointment Department of Radiation Oncology in [place], [place] [address] [place] [address] Elsie Dewey M.D. [address] [place] [address] 10/22/2023 2:00 PM CDT Appointment Department of Radiation Oncology in [address] [address] Elsie Dewey M.D. [address] [place] [address] 10/23/2023 1:45 PM CDT Appointment Department of Radiation Oncology in [place], [place] [address] [place] [address] Elsie Dewey M.D. [address] [place] [address] 10/24/2023 1:45 PM CDT Appointment Department of Radiation Oncology in [place], [place] [address] [place] [phone] Elsie Dewey M.D. [address] [place] [address] 10/25/2023 1:45 PM CDT Appointment Department of Radiation Oncology in [place], [place] [address] [place] [address] Elsie Dewey M.D. [address] [place] [address] 10/28/2023 1:45 PM CDT Appointment Department of Radiation Oncology in [place], [place] [address] [place] [address] Elsie Dewey M.D. [address] [place] [address] 10/29/2023 1:45 PM CDT Appointment Department of Radiation Oncology in [place], [place] [address] [place] [address] Elsie Dewey M.D. [address] [place] [address] 10/29/2023 2:00 PM CDT Appointment Department of Radiation Oncology in [place], [place] [address] [place] [address] Elsie Dewey M.D. [address] [place] [address] 10/30/2023 1:45 PM CDT Appointment Department of Radiation Oncology in [place], [place] [address] [place] [address] Elsie Dewey M.D. [address] [place] [address] 10/31/2023 1:45 PM CDT Appointment Department of Radiation Oncology in [place], [place] [address] [place] [address] Elsie Dewey M.D. [address] [place] [address] 11/01/2023 1:45 PM CDT Appointment Department of Radiation Oncology in [place], [place] [address] [place] [address] Elsie Dewey M.D. [address] [place] [address] Procedures Procedure Name Priority Date/Time Associated Diagnosis [...] and all outpatients) 09/05/2023 10:18 AM CDT MAYOCOMPLETE SOLID TUMOR PANEL Routine 09/05/2023 10:05 AM [...] OUTSIDE NM PET Routine 08/15/2023 12:05 PM MERCHANDISE CLERK EXTI THYROID-STIMULATING HORMONE-SENSITIVE (S-TSH), S Routine 03/28/2023 1:16 PM CDT from Last 3 Months or Most Recently Relevant to Health Maintenance Results * Aria Daily Treatment Information (10/01/2023 2:11 PM CDT) Only the most recent of7 resultswithin the time period is included. Course ID [id number] MENDOZA ARIA Course Start Date 4 15:26 CDT MENDOZA ARIA First Treatment Date 4 14:04 CDT MENDOZA ARIA Last Treatment Date 4 14:11 CDT MENDOZA ARIA Treatment Elapsed Days 8 MENDOZA ARIA Reference Point [id number] MENDOZA ARIA Dosage Given to Date cGy 1400 MENDOZA ARIA Session Dosage Given 200 MENDOZA ARIA Plan ID [id number] MENDOZA ARIA Fractions Treated to Date 7 MENDOZA ARIA Planned Total Fractions 30 MENDOZA ARIA Prescribed Dose Per Fraction 200 MENDOZA ARIA Prescription Dose in cGy 6000 MENDOZA ARIA Plan Primary Reference Point [id number] MNEDOZA ARIA 10/01/2023 2:11 PM CDT Provider Not In System RADIATION ONCOLOG Y ORDERABLES REJI SANDOVAL na * Initial Rad Onc Treatment Planning CT Simulation (09/11/2023 1:00 PM CDT) Narrative MENDOZA ARIA - 09/11/2023 1:00 PM CDT Ese Castaneda, RTT ? 09/11/2023 ??1:10 PM Initial Rad Onc Treatment Planning CT Simulation Performed by: Elsie Dewey M.D. Authorized by: Elsie Dewey M.D. ?? Elsie Dewey M.D. RADIATION ONCOLOG Y ORDERABLES REJI SANDOVAL na * MR head/brain wo/w [...] Not In System IMG MRI PROCEDURE S IIMS NA * (ABNORMAL) SPSMA Result (09/05/2023 12:02 [...] 12:21 PM CDT Nilo Pickett APRN, C.N.P., D.N.P. L AB BLOOD ADD-ON Performing Organization Address City/[facility]/ZIP Co de Phone Number [facility] [address] [place] [address], [facility] [address] [place] [address] * (ABNORMAL) Iron and Total Iron-Binding Capacity [...] Tejeda APRN.N.P., D.N.P. L AB BLOOD ADD-ON [facility] [address] [place] [address] * Folate (09/05/2023 12:02 PM CDT) [facility] Folate, S >20.0 >=4.0 mcg/L 09/05/2023 1: 21 PM CDT DTL Blood (Blood, Venous) 09/05/2023 12:02 PM CDT 09/05/2023 12:31 PM CDT Sylvia Tejeda APRN.N.P., D.N.P. L AB BLOOD ADD-ON Performing Organization Address City/[facility]/ZIP Co de Phone Number [facility] [address] [place], [place] [id number] [place] [address] [address] [place] [address] * Ferritin (09/05/2023 12:02 PM CDT) [facility] Ferritin, S 14 11 - 328 mcg/L 09/05/2023 1:04 PM CDT DT Blood (Blood, Venous) 09/05/2023 12:02 PM CDT 09/05/2023 12:31 PM CDT Sylvia Tejeda APRN.N.P., D.N.P. L AB BLOOD ADD-ON [facility] [address] [place] [address] * (ABNORMAL) Vitamin B12 Assay (09/05/2023 12:02 PM CDT) [facility] Vitamin B12 Assay, S 1127(H) 180 - [...] 12:31 PM CDT Nilo Pickett APRN, C.N.P., D.N.P. L AB BLOOD ADD-ON [facility] [address] [place] [address], [facility] DTL [facility] [address] [place] [address] * FL Fluoro Less Than 1 Hour (09/05/2023 10:18 AM CDT) Narrative [facility] - 09/05/2023 10:19 AM CDT This exam does not require a radiologist review or interpretation. Please refer to the patient's medical record on this date for clinical details. Phil Abreu M.D. IMG FLUOROSCOPY PRO CEDURES Performing Organization Address City/[facility] Co de Phone Number 152 [facility] R[facility] * [facility] Solid Tumor Panel, Next-Generation Sequencing, Tumor (09/05/2023 [...] the 2017 AMP/ASCO/CAP Joint consensus recommendation [PMID [id number]] as follows: Tier 1 - Variant with strong clinical significance; Tier 2 - Variant with potential clinical significance; Tier 3 - Variant of unknown (uncertain) clinical significance; Tier 4 - Benign or likely benign variant. Tiers 1 and 2 variants are clinically significant mutations and rearrangements. Only Tiers 1 and 2 variants are interpreted. A complete gene list is available online ([email or web address] ; test code MCSTP) 09/25/2023 6:50 PM CDT DTL Clinical Trials Clinical trials associated with Tiers 1 and 2 variants that have a status of recruiting are included in the table above. 09/25/2023 6:50 PM CDT DTL Variants of Uncertain Significance The following VARIANTS OF UNCERTAIN SIGNIFICANCE were identified: APC, c.6989C>T (p.G2055S) (VAF: 15%) AR, c.170_172del (p.L57del) (VAF: 8.8%) ARID1A, c.472C>T (p.P158S) (VAF: 40%) BCL10, c.529C>G (p.L177V) (VAF: 21%) BCOR, c.1342G>C (p.V448L) (VAF: 19%) CBL, c.647G>A (p.S216N) (VAF: 33%) EGFR, c.2631-293C>T (VAF: 26%) EIF4A2, c.109G>T (p.D37Y) (VAF: 36%) EIF4A2, c.948G>A (p.M316I) (VAF: 38%) EPHA5, c.634C>A (p.L212I) (VAF: 32%) ETS1, c.786-97733G>A (VAF: 21%) FANCA, c.2647C>G (p.L883V) (VAF: 15%) FANCL, c.1028G>C (p.R343T) (VAF: 17%) FGF10, c.325+1116_325+1117 delinsAT (VAF: 58%) FGFR3, c.2274+3G>C (VAF: 14%) FGFR4, c.940G>A (p.E314K) (VAF: 17%) FLCN, c.652C>T (p.R218C) (VAF: 50%) GNA13, c.412G>C (p.E138Q) (VAF: 56%) IZI23TH3, c.2143G>C (p.E715Q) (VAF: 20%) IGF1R, c.3680A>T (p.X0249H) (VAF: 46%) KDR, c.3445C>A (p.S0800H) (VAF: 32%) KLHL6, c.1300A>G (p.R434G) (VAF: 59%) LRP1B, c.81360J>T (p.U4014B) (VAF: 34%) MDC1, c.3875G>A (p.B5673R) (VAF: 2.1%) MDC1, c.3774_3775delinsAT (p.E4929I) (VAF: 2.5%) MDC1, c.3698A>G (p.S1441G) (VAF: 2.5%) MDC1, c.3528_3529delinsAT (p.S4004Z) (VAF: 3%) MST1, c.1637C>T (p.T546M) (VAF: 3.4%) NOTCH2, c.4238T>A (p.R5974J) (VAF: 39%) PAX8, c.1087+26T>A (VAF: 37%) RRI7M7H, c.3956G>C (p.M1955Z) (VAF: 23%) PIK3R2, c.1456G>A (p.E486K) (VAF: 16%) PTCH1, c.1882C>G (p.Q628E) (VAF: 14%) PTPRD, c.3001G>A (p.P5396M) (VAF: 14%) PTPRT, c.91G>C (p.G31R) (VAF: 38%) SMARCA4, c.2810G>T (p.S937I) (VAF: 16%) TGFBR1, c.722C>T (p.S241L) (VAF: 10%) TP53, c.97-52G>A (VAF: 27%) TSC2, c.1318G>T (p.G440C) (VAF: 19%) ZBTB7A, c.657C>A (p.F219L) (VAF: 18%) ZFHX3, c.7576C>G (p.U9926T) (VAF: 19%) 09/25/2023 6:50 PM CDT DTL Specimen Cells 09/25/2023 6:50 PM CDT DTL Tissue ID [id number] D1 09/25/2023 6:50 PM CDT DTL Method Microscopic examination was performed by a pathologist to identify areas of tumor for enrichment by macrodissection. DNA and RNA were extracted from FFPE or cytology slides, and next generation sequencing using the [employer] Interactive 500 chemistry was performed. The following variant types and molecular profiles were evaluated: tumor mutation burden (TMB) status, microsatellite instability (MSI) status, sequence variants involving exonic regions and exon/intron boundaries of 515 genes, gene amplifications in 59 genes, fusions involving any of 55 genes, and transcript variants in 3 genes. AMP/ASCO/CAP classifications and clinical trials and therapeutic information were powered by [employer] - Interpret One (QCI-II). Variant nomenclature is based on build GRCh37 (hg19). For targeted gene lists, details about gene transcripts (GenBank accession numbers), specific targeted regions of each gene, and additional information on this test, see [email or web address] (Test ID MCSTP). 09/25/2023 6:50 PM CDT [...] of heterozygosity) and sequencing artifact/misalignme nt [PMID: 29152771, PMID: 68448240]. Tumor Purity: A tumor percentage of greater [...] developed and its performance characteristics determined by [facility] in a manner consistent with CLIA [...] instability (MSI-H)/defective DNA mismatch repair (dMMR) [PMID: 28858370, PMID: 12197163, PMID: 17537366]. 1) KRAS c.34G>T (p.G12C) (VAF: 74%) GENE/VARIANT SUMMARY KRAS G12C ([id number]) is an activating mutation. KRAS encodes a signaling protein member of the New family [PMID:31243368, PMID:23603402, PMID:68496861]. Activating KRAS alterations, mainly through mutations at codons G12, G13 and Q61, result in oncogenic activation of downstream signaling pathways, including the Je/MEK/ERK pathway [PMID:56237530, PMID:3828425]. The KRAS G12C mutation lies within the first G box domain of the K-New protein, one of several conserved regions responsible for GTP binding and hydrolysis; disruption of this region creates a protein that is defective for GTP hydrolysis and is therefore constitutively active [PMID:8612714, PMID:8281325, PMID:22828360]. KRAS G12C has been reported as the most common KRAS mutation in non-small cell lung carcinoma (NSCLC), and has been shown to have transforming ability and lead to activation of MEK and ERK signaling; in contrast to KRAS G12D, the G12C mutation has been reported not to result in activation of Akt [PMID:38513652, PMID:14774402, PMID:75121332, PMID:77192786]. KRAS mutations have been reported in 20% of lung adenocarcinoma samples analyzed in [employer] (October 2022). Numerous studies have reported KRAS mutations to be associated with poor survival in NSCLC patients [PMID:75369990, PMID:95040623, PMID:8283622, PMID:66279047, PMID:0634233, PMID:72840146, PMID:25182902]. THERAPEUTIC IMPLICATIONS Drug sensitivity: Sotorasib and adagrasib have been FDA-approved in patients with locally advanced or metastatic non-small cell lung carcinoma harboring a KRAS G12C mutation, as determined by an FDA-approved test, following treatment with at least one prior systemic therapy [PMID:26684712, PMID:52626553]. Drug resistance: In some cancer types, such as colorectal cancer (CRC) and non-small cell lung cancer (NSCLC), activating KRAS mutations and KRAS amplification have been associated with resistance to Egfr-targeted therapies [PMID:44640253, PMID:45601584, PMID:11068638, PMID:71450100, PMID:88875539, PMID:53507145, PMID:72120310, PMID:55158826, PMID:97489500]. FDA Approved Drugs: Sotorasib Adagrasib. 2) SHARDA c.8001_1067del (p.K9091rt*13) (VAF: 9.1%) GENE/VARIANT SUMMARY SHARDA K8982nw ([id number]) is an inactivating mutation. SHARDA encodes the serine/threonine protein kinase Ataxia telangiectasia mutated (Sharda), which is a member of the PI3K/PI4K family [PMID:75992038]. SHARDA deficiency in cells has been reported to result in progression through the cell cycle even in the presence of DNA damage, resulting in the accumulation of DNA errors and genomic instability that can lead to cancer [PMID:57722169]. The SHARDA frameshift alteration reported here is expected to truncate the Sharda protein prior to the FATC domain, which is critical to the activation of Sharda in response to DNA damage (UniProt) [PMID:36560786, PMID:06802072, PMID:65211595, PMID:80402655]. In addition, this alteration is likely to elicit nonsense-mediated decay [PMID:08256390, PMID:67287508, PMID:9251594, PMID:70112250]. Therefore, this alteration is predicted to be [...] of mutations in homologous recombination repair genes [PMID:59175506, PMID:54172046, PMID:22216493, PMID:53877326, PMID:66304865, PMID:75761976, PMID:60384836]. Preclinical studies have reported that reduced SHARDA expression or inactivating SHARDA mutations sensitized NSCLC cell line models to radiation and MEK inhibitors [PMID:71562673, PMID:63298019]. SHARDA inactivation has also been associated with increased sensitivity to the topoisomerase-2 inhibitor etoposide, the PARP inhibitor olaparib, and the Atr inhibitor berzosertib in a study of preclinical models of lung adenocarcinoma; however, no effects on cisplatin sensitivity were reported [PMID:16016796]. Drug resistance: None. FDA Approved Drugs: None. 3) CDK4 amplification GENE/VARIANT SUMMARY CDK4 amplification is an activating alteration. CDK4 encodes cyclin-dependent kinase 4 (Cdk4), which, along with functional homolog CDK6 and family member CDK2, regulates cell cycle G1 phase progression and the G1/S transition [PMID:84715708]. Cdk4 is activated by Cyclin D, and the resulting Cyclin D-Cdk4 complex phosphorylates the protein Rb, leading to the release of the merchandise clerk factor E2F. This process results in the progression of the cell cycle; excessive activity in this pathway may lead to overproliferation [PMID:84273420, PMID:[id number]]. Amplification of CDK4, which is located at chromosome 12q13, has been correlated with Cdk4 protein expression, and has been implicated in cell cycle progression, cell proliferation, and tumor growth [PMID:13834554, PMID:79965713, PMID:66175372, PMID:5705137, PMID:44048279, PMID:99936283]. Putative high-level amplification of CDK4 has been [...] basis for their development as anti-cancer agents [PMID:73985435, PMID:14380692, PMID:34195964]. Drug resistance: A study analyzing 65 advanced NSCLC patients, who received EGFR-tyrosine kinase inhibitors (TKIs), has reported an association of CDK4/6 amplification with de maribel EGFR-TKI resistance [PMID:29581759]. Furthermore, CDK4 alterations detected in cell free DNA have been retrospectively associated with poor response to osimertinib in a cohort of 41 NSCLC cases, while alterations in CDK4 or CDK6 detected in cell free DNA have been retrospectively associated with poor response to Egfr TKIs in a cohort of 64 NSCLC cases [PMID:17437485]. FDA Approved Drugs: None. 4) CDKN2A c.189del (p.L64fs*82) (VAF: 65%) GENE/VARIANT SUMMARY CDKN2A L64fs*82 (NM_[id number]) is an inactivating mutation. CDKN2A is a tumor suppressor gene that encodes the proteins c55PBF1t and p14ARF [PMID:3608471, PMID:8493430, PMID:77259858]. Deletions or mutations resulting in loss of function lead to dysregulation of the z39VVA5g/Cdk4/Cycli n/Rb and/or the Mdm2/p53 pathways and altered regulation of the cell cycle [PMID:3306462, PMID:7105490, PMID:04079392]. This frameshift alteration within CDKN2A exon 2 is expected to truncate the i48ORN8h protein within the ankyrin repeat region (UniProt). All four ankyrin repeats, which are involved in binding to eubanks targets such as Cdk4, have been suggested to be important for t52NBW9n activity [PMID:80356320, PMID:1283829, PMID:2825020]. This alteration also alters the p14ARF transcript, potentially resulting in a chimeric transcript with the p70YJY0m reading frame (IGV). Older studies examining similar frameshift mutations within exon 2 of CDKN2A reported that these alterations are likely inactivating; however, several studies have suggested that p14ARF exon 2 truncations or frameshift chimeric proteins retain p14ARF function, but not q22XDY6k function [PMID:83990258, PMID:54410826, PMID:44077445, PMID:79188093, PMID:24295426, PMID:55418148]. Therefore, while this alteration may result in sensitivity to Cdk4/6 inhibitors, Mdm2 inhibitors may not be relevant. CDKN2A mutations have been reported in 6% of lung adenocarcinoma samples analyzed in [facility] (October 2022). THERAPEUTIC IMPLICATIONS Drug sensitivity: There are currently no drugs that directly target inactivating mutations or loss of CDKN2A. Because j97KOI8j is known to inhibit Cdk4, tumors with CDKN2A alterations may be sensitive to Cdk4/6 inhibitors [PMID:6756577, PMID:1760449]. p14ARF has been reported to function as a tumor suppressor through stabilization and activation of p53, via a mechanism of Mdm2 inhibition [PMID:81387109, PMID:56560758, PMID:2056557]. However, as the alteration reported here is not expected to affect p14ARF function, Mdm2 inhibitors are not expected to be relevant. Drug resistance: Inactivating CDKN2A alterations, most commonly deletion, have been significantly associated with resistance or lack of response to immune checkpoint blockade monotherapy in NSCLC patients; however, this association was not observed in patients treated with immune checkpoint blockade plus chemotherapy [PMID:63428910, PMID:77071532]. FDA Approved Drugs: None. 5) MDM2 amplification GENE/VARIANT SUMMARY MDM2 amplification is an activating alteration. MDM2 encodes the E3 ubiquitin protein ligase, Mdm2, which mediates the ubiquitination and subsequent degradation of p53, Rb1, and other proteins [PMID:96154258, PMID:37362212, PMID:50316695]. MDM2 gene amplification, which is located at chromosome 12q15, has been correlated with elevated Mdm2 protein expression, as measured by immunohistochemistr y, and frequently with the inactivation of p53 [PMID:08985933, PMID:04304410, PMID:77010500, PMID:21368367]. MDM2 functions as an oncogene, and MDM2 amplification has been shown to play a role in cell proliferation, invasion, and metastasis [PMID:63646062, PMID:1921454, PMID:22495141, PMID:96645457]. Putative high-level amplification of MDM2 has been reported in 4-13% of lung adenocarcinoma cases ([facility], October 2022). THERAPEUTIC IMPLICATIONS Drug sensitivity: Mdm2 antagonists, which disrupt the Mdm2-p53 interaction, leading to reactivation of p53, are being studied in multiple tumor types [PMID:42329056, PMID:03462434, PMID:64747803, PMID:38841405, PMID:48124678]. Several other classes of Mdm2-p53 disrupting molecules have also been found to have activity, including novel benzodiazepine derivatives [PMID:52434252]. Preclinical studies in pancreatic, breast, and colon cancer cell lines suggest that Mdm2 inhibitors may increase sensitivity of tumors to havasupai-based therapies [PMID:30111125, PMID:09072302]. Drug resistance: Amplification of MDM2 or MDM4 has been associated with hyperprogression following treatment with anti-PD-1 or anti-PD-L1 inhibitors in one study. Hyperprogression was defined as a time to treatment less than two months, greater than 50% increase in tumor burden as compared with pre-immunotherapy, and greater than two-fold increase in progression pace [PMID:82240635]. FDA Approved Drugs: None. 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 MED12 encodes Med12, which is part of a Cdk8 kinase-containing Tank Bottom Assembler complex module that contributes to both the activation and repression of merchandise clerk and has been shown to be the subunit responsible for direct physical interactions with proteins such as Sox9, beta-catenin, Gli3, and REST [PMID:84155367, PMID:88970263, PMID:47078413, PMID:06835731, PMID:43328624]. Mutation and loss of MED12 have been reported in several types of cancer; it has been suggested that inactivation of Med12 may promote cancer through the dysregulation of several signaling pathways, including TGF-beta, MEK, ERK and hormone receptors [PMID:16403254, PMID:63527215, PMID:52170199]. The MED12 nonsense alteration reported here is expected to truncate the Med12 protein prior to or within the OPA domain (UniProt) [PMID:13398764, PMID:73872701, PMID:78747917]. A preclinical study has reported that disruption of the OPA domain can be associated with changes to neurogenesis, as well as disruption of transcriptional suppression in model organisms [PMID:44381941]. In addition, C-terminal MED12 truncations have been reported as germline variants in patients with X-linked syndromic neurodevelopmental disorders [PMID:17678885]. Therefore, the alteration reported here is predicted to be inactivating. MED12 mutations have been reported in 5% of lung adenocarcinoma samples analyzed in [facility] (October 2022). THERAPEUTIC IMPLICATIONS Drug sensitivity: There are no therapies directly targeting alterations in MED12 or Med12 expression. Preclinical studies have reported that Med12 binds to beta-catenin, providing evidence for a role for Med12 and the Tank Bottom Assembler complex in transducing Wnt pathway signaling [PMID:34804774, PMID:26178613]. The relevance of Wnt pathway inhibitors in [...] Egfr, MEK, and Braf, as well as havasupai chemotherapies [PMID:73526554, PMID:51298691]. Inactivation of MED12 was identified as a cause of crizotinib resistance in a non-small cell lung carcinoma (NSCLC) cell line. Inhibition of the TGF-beta pathway was able to restore sensitivity of NSCLC cells to crizotinib and gefitinib [PMID:90462184]. FDA Approved Drugs: None. 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 TERT encodes the telomerase reverse transcriptase protein and is activated through multiple mechanisms in several cancer types [PMID:96677244, PMID:35016888, PMID:3118235, PMID:9819805]. TERT promoter -124C>T, also known as C228T, chr5:1,295,228 C>T, or c.-124G>A, occurs prior to the transcriptional start site within the promoter of the TERT gene [PMID:04851471, PMID:40594961]. This alteration has been reported to result in increased transcriptional activity of the TERT promoter, hTERT protein expression, telomerase activity, and telomere length, as compared with wild-type TERT [PMID:38544585, PMID:46234151, PMID:78926735, PMID:39228999]. TERT mutations have been reported in 2% of lung adenocarcinoma samples analyzed in [facility] (October 2022). THERAPEUTIC IMPLICATIONS Drug sensitivity: Therapies targeting telomeres or telomerase components have been in development, although discoveries regarding alternative roles in normal cells, as well as consequences of shortened telomeres, may limit their use [PMID:95970589, PMID:86937626, PMID:56917261, PMID:51930811, PMID:40968616]. Drug resistance: None. FDA Approved Drugs: None. 09/25/2023 6:50 PM CDT DTL Tissue (Lung, Right) 09/05/2023 10:05 AM CDT 09/11/2023 3:54 PM CDT Nilo Pickett APRN, C.N.P., Kvng [employer] AB GENETIC TESTING [facility] [address] [place] [address], [facility] DTL [address] [place] [address] * (ABNORMAL) Cytology Fine Needle Aspiration (including [...] ry studies (cone 22C3, [place], [place], [place]; using a proprietary detection system (D1): [...] characteristics were determined by [facility] in a manner consistent with CLIA requirements. This test has not been cleared or approved by the U.S. Food and Drug Administration. Test results for (IHC or SARA) testing are valid for specimens fixed between 6 and 72 hours. ??Delay to fixation, under fixation or over fixation fall outside of guidelines and may affect these results. Genetic testing for [facility] Solid Tumor Panel (MCSTP) will be [...] stains were performed at [facility] (block A1). KRT7, Napsin A, TTF1(SPT24), p40.(A) 09/12/2023 8:24 AM CDT DTL Aspirate (Lung, Right Upper Lobe) 09/05/2023 8:10 AM CDT Tissue (Lung, Right Upper Lobe) 09/05/2023 9:11 AM CDT Aspirate (Lymph Node) 09/05/2023 9:38 AM CDT Aspirate (Lymph Node) 09/05/2023 9:43 AM CDT Phil Abreu M.D. LAB SURG PATH ORDER MAGDALENO [facility] [address] [place] [address], [facility] DTL [address] [place] [address] * LDA ANE ENDOTRACHEAL AIRWAY (09/05/2023 7:54 [...] ETT location: oral VL device: glide scope [place] scope blade size: 3 Tube size: 8 [...] System IMG NON RAD IMAGI NG PROCEDURES IIOH NA * ECG 12 Lead (09/04/2023 12:32 PM CDT) Ventricular Rate ECG/Min 70 BPM MUSE PA Interval 168 ms MUSE QRSD Interval 74 ms MUSE QT Interval 408 ms MUSE QTC Interval 440 ms MUSE P [place] 81 degrees MUSE R [place] 27 degrees MUSE T Wave [place] 49 degrees MUSE 09/04/2023 12:3 2 PM [...] D.N.P. E CG ORDERABLES Performing Organization Address City/[facility]/ZIP Co de Phone Number MUSE NA * [...] L AB BLOOD ADD-ON Performing Organization Address City/[facility]/ZIP Co de Phone Number [facility] [address] [place] [address], [facility] DTL [facility] [address] [place] [address] * (ABNORMAL) CBC with Differential, Blood (09/04/2023 12:11 PM CDT) Pathologist [facility] Hemoglobin 9.5(L) 11.6 - 15.0 g/dL 09/04/2023 [...] APRN, C.N.P., D.N.P. L AB BLOOD ADD-ON [facility] [address] [place] [address], [place] DTL [facility] [address] [place] [address] [facility] [address] [place] [address] * (ABNORMAL) Comprehensive Metabolic Panel (09/04/2023 12:11 PM CDT) [facility] Potassium, S 4.4 3.6 - 5.2 mmol/L [...] PM CDT 09/04/2023 1:07 PM CDT Nilo J Piyush SPORTS REPORTER, C.N.P., D.N.P. L AB BLOOD ADD-ON [facility] [address] [place] [address], [place] DTL [facility] [address] [place] [address] * CT Chest without IV Contrast (09/04/2023 [...] mid thigh-Outside [place] Pet (08/15/2023 12:05 PM MERCHANDISE CLERK) 08/15/2023 12:0 5 PM MERCHANDISE CLERK Narrative [facility] - 08/15/2023 1:19 PM MERCHANDISE CLERK This order has been created and auto-finalized [...] Advance Directives For more information, please contact: [phone] Documents on File Type Date Recorded Patient Lithostripper Expl anation Advance Directives 09/20/2023 6:06 PM Dario Dutton HCPOA/ADVOCATE/AGENT/R EPRESENTATIVE/SURROGAT E Advance Directives 01/12/2013 12:00 AM Leg acy document. See document viewer. Healthcare Agents on File Name Relationship Healthcare Agent Relationship Communication Dario Henderson Spouse Health Care Agent Anita Fuentes Daughter First Alterna carrie Health Care Agent
--- OUTSIDE RECORDS SUMMARY | 2023-10-02 11:44 | XMS_ITS | Encounter Summary ---
Author Name Unknown Organization [facility] Address [address] [place] [address] Care Team Providers Care Community Relations Rep Name Role Phone Unavailable Primary Care Provider Unavailabl e Encounter Details Date Type Department Care Team (Late st Contact Info) Description 10/01/2023 1:45 PM CDT Hospital Encounter Department of Radiation Oncology in [place], [place] [address] [place] [phone] Elsie Dewey M.D. [address] [place] [phone] Social History Tobacco Use Types Packs/Day Years [...] declined 10/31/2022 How often do you attend mosque or spiritism serv ices? Never 10/31/2022 Do you belong to any clubs o r organizations such as mosque groups, unions, fraternal or athletic groups, or [...] and heating? Not hard at all 10/31/2022 [facility] - Occupational Stress Questionnaire Answer Date Recorded [...] No 10/31/2022 Housing Stability Vital Sign Answer Mckya e Recorded In the last 12 months, [...] CDT Appointment Department of Radiation Oncology in [place], [place] [address] [place] [phone] Elsie Dewey M.D. [address] [place] [address] 10/03/2023 1:45 PM CDT Appointment Department of Radiation Oncology in [place], [place] [address] [place] [phone] Elsie Dewey M.D. [address] [place] [phone] 10/04/2023 1:45 PM CDT Appointment Department of Radiation Oncology in [place], [place] [address] [place] [address] Elsie Dewey M.D. [address] [place] [phone] 10/07/2023 1:45 PM CDT Appointment Department of Radiation Oncology in [address] [phone] Elsie Dewey M.D. [address] [place] [phone] 10/08/2023 1:45 PM CDT Appointment Department of Radiation Oncology in [place], [place] [address] [place] [address] Elsie Dewey M.D. [address] [place] [phone] 10/08/2023 2:00 PM CDT Appointment Department of Radiation Oncology in [place], [place] [address] [place] [phone] Elsie Dewey M.D. [address] [place] [phone] 10/09/2023 1:45 PM CDT Appointment Department of Radiation Oncology in [address] [phone] Elsie Dewey M.D. [address] [place] [phone] 10/10/2023 1:45 PM CDT Appointment Department of Radiation Oncology in [place], [place] [address] [place] [address] Elsie Dewey M.D. [address] [place] [phone] 10/11/2023 1:45 PM CDT Appointment Department of Radiation Oncology in [place], [place] [address] [place] [phone] Elsie Dewey M.D. [address] [place] [phone] 10/14/2023 1:45 PM CDT Appointment Department of Radiation Oncology in [address] [address] Elsie Dewey M.D. [address] [place] [phone] 10/15/2023 1:45 PM CDT Appointment Department of Radiation Oncology in [address] [address] Elsie Dewey M.D. [address] [place] [phone] 10/15/2023 2:15 PM CDT Appointment Department of Radiation Oncology in [address] [phone] Elsie Dewey M.D. [address] [place] [phone] 10/16/2023 1:45 PM CDT Appointment Department of Radiation Oncology in [place], [place] [address] [place] [phone] Elsie Dewey M.D. [address] [place] [address] 10/17/2023 1:45 PM CDT Appointment Department of Radiation Oncology in [place], [place] [address] [place] [phone] Elsie Dewey M.D. [address] [place] [address] 10/18/2023 1:45 PM CDT Appointment Department of Radiation Oncology in [address] [phone] Elsie Dewey M.D. [address] [place] [address] 10/21/2023 1:45 PM CDT Appointment Department of Radiation Oncology in [address] [address] Elsie Dewey M.D. [address] [place] [address] 10/22/2023 1:45 PM CDT Appointment Department of Radiation Oncology in [place], [place] [address] [place] [phone] Elsie Dewey M.D. [address] [place] [address] 10/22/2023 2:00 PM CDT Appointment Department of Radiation Oncology in [address] [address] Elsie Dewey M.D. [address] [place] [address] 10/23/2023 1:45 PM CDT Appointment Department of Radiation Oncology in [place], [place] [address] [place] [address] Elsie Dewey M.D. [address] [place] [address] 10/24/2023 1:45 PM CDT Appointment Department of Radiation Oncology in [place], [place] [address] [place] [phone] Elsie Dewey M.D. [address] [place] [phone] 10/25/2023 1:45 PM CDT Appointment Department of Radiation Oncology in [place], [place] [address] [place] [address] Elsie Dewey M.D. [address] [place] [phone] 10/28/2023 1:45 PM CDT Appointment Department of Radiation Oncology in [place], [place] [address] [place] [address] Elsie Dewey M.D. [address] [place] [address] 10/29/2023 1:45 PM CDT Appointment Department of Radiation Oncology in [place], [place] [address] [place] [phone] Elsie Dewey M.D. [address] [place] [phone] 10/29/2023 2:00 PM CDT Appointment Department of Radiation Oncology in [place], [place] [address] [place] [address] Elsie Dewey M.D. [address] [place] [phone] 10/30/2023 1:45 PM CDT Appointment Department of Radiation Oncology in [place], [place] [address] [place] [address] Elsie Dewey M.D. [address] [place] [address] 10/31/2023 1:45 PM CDT Appointment Department of Radiation Oncology in [place], [place] [address] [place] [phone] Elsie Dewey M.D. [address] [place] [address] 11/01/2023 1:45 PM CDT Appointment Department of Radiation Oncology in [place], [place] [address] [place] [address] Elsie Dewey M.D. [address] [place] [phone] documented as of this encounter Visit Diagnoses Not on filedocumented in this encounter
--- OUTSIDE RECORDS SUMMARY | 2023-10-02 11:44 | XMS_ITS | Encounter Summary ---
Author Name Unknown Organization [facility] Address [address] [place] [address] Care Team Providers Care Control Analyst Name Role Phone Unavailable Primary Care Provider Unavailabl e Encounter Details Date Type Department Care Team (Late st Contact Info) Description 09/30/2023 1:24 PM CDT Hospital Encounter Department of Radiation Oncology in [place], [place] [address] [place] [address] Elsie Dewey M.D. [address] [place] [phone] Social History Tobacco Use Types Packs/Day Years [...] declined 10/31/2022 How often do you attend confucianist or sabianism serv ices? Never 10/31/2022 Do you belong to any clubs o r organizations such as confucianist groups, unions, fraternal or athletic groups, or [...] at all 10/31/2022 [facility] - Occupational Stress Questionnaire Answer Date [...] CDT Appointment Department of Radiation Oncology in [place], [place] [address] [place] [address] Elsie Dewey M.D. [address] [place] [address] 10/03/2023 1:45 PM CDT Appointment Department of Radiation Oncology in [place], [place] [address] [place] [phone] Elsie Dewey M.D. [address] [place] [address] 10/04/2023 1:45 PM CDT Appointment Department of Radiation Oncology in [place], [place] [address] [place] [address] Elsie Dewey M.D. [address] [place] [address] 10/07/2023 1:45 PM CDT Appointment Department of Radiation Oncology in [address] [address] Elsie Dewey M.D. [address] [place] [address] 10/08/2023 1:45 PM CDT Appointment Department of Radiation Oncology in [place], [place] [address] [place] [address] Elsie Dewey M.D. [address] [place] [address] 10/08/2023 2:00 PM CDT Appointment Department of Radiation Oncology in [place], [place] [address] [place] [phone] Elsie Dewey M.D. [address] [place] [address] 10/09/2023 1:45 PM CDT Appointment Department of Radiation Oncology in [address] [address] Elsie Dewey M.D. [address] [place] [address] 10/10/2023 1:45 PM CDT Appointment Department of Radiation Oncology in [place], [place] [address] [place] [address] Elsie Dewey M.D. [address] [place] [address] 10/11/2023 1:45 PM CDT Appointment Department of Radiation Oncology in [place], [place] [address] [place] [address] Elsie Dewey M.D. [address] [place] [address] 10/14/2023 1:45 PM CDT Appointment Department of Radiation Oncology in [address] [address] Elsie Dewey M.D. [address] [place] [address] 10/15/2023 1:45 PM CDT Appointment Department of Radiation Oncology in [address] [address] Elsie Dewey M.D. [address] [place] [address] 10/15/2023 2:15 PM CDT Appointment Department of Radiation Oncology in [address] [address] Elsie Dewey M.D. [address] [place] [address] 10/16/2023 1:45 PM CDT Appointment Department of Radiation Oncology in [place], [place] [address] [place] [address] Elsie Dewey M.D. [address] [place] [address] 10/17/2023 1:45 PM CDT Appointment Department of Radiation Oncology in [place], [place] [address] [place] [address] Elsie Dewey M.D. [address] [place] [address] 10/18/2023 1:45 PM CDT Appointment Department of Radiation Oncology in [address] [address] Elsie Dewey M.D. [address] [place] [address] 10/21/2023 1:45 PM CDT Appointment Department of Radiation Oncology in [address] [address] Elsie Dewey M.D. [address] [place] [address] 10/22/2023 1:45 PM CDT Appointment Department of Radiation Oncology in [place], [place] [address] [place] [phone] Elsie Dewey M.D. [address] [place] [address] 10/22/2023 2:00 PM CDT Appointment Department of Radiation Oncology in [address] [address] Elsie Dewey M.D. [address] [place] [address] 10/23/2023 1:45 PM CDT Appointment Department of Radiation Oncology in [place], [place] [address] [place] [address] Elsie Dewey M.D. 200 [place] [address] 10/24/2023 1:45 PM CDT Appointment Department of Radiation Oncology in [place], [place] [address] [place] [address] Elsie Dewey M.D. [address] [place] [address] 10/25/2023 1:45 PM CDT Appointment Department of Radiation Oncology in [place], [place] [address] [place] [address] Elsie Dewey M.D. [address] [place] [address] 10/28/2023 1:45 PM CDT Appointment Department of Radiation Oncology in [place], [place] [address] [place] [address] Elsie Dewey M.D. 200 [place] [address] 10/29/2023 1:45 PM CDT Appointment Department of Radiation Oncology in [place], [place] [address] [place] [address] Elsie Dewey M.D. [address] [place] [address] 10/29/2023 2:00 PM CDT Appointment Department of Radiation Oncology in [place], [place] [address] [place] [address] Elsie Dewey M.D. [address] [place] [address] 10/30/2023 1:45 PM CDT Appointment Department of Radiation Oncology in [place], [place] [address] [place] [address] Elsie Dewey M.D. [address] [place] [address] 10/31/2023 1:45 PM CDT Appointment Department of Radiation Oncology in [place], [place] [address] [place] [address] Elsie Dewey M.D. 200 [place] [address] 11/01/2023 1:45 PM CDT Appointment Department of Radiation Oncology in [place], [place] [address] [place] [address] Elsie Dewey M.D. [address] [place] [phone] documented as of this encounter Visit Diagnoses Not on filedocumented in this encounter
--- OUTSIDE RECORDS SUMMARY | 2023-10-02 11:44 | XMS_ITS | Encounter Summary ---
Author Name Unknown Organization [facility] Address [address] [place] [address] Care Team Providers Care Core Analyst Name Role Phone Unavailable Primary Care Provider Unavailabl e Encounter Details Date Type Department Care Team (Late st Contact Info) Description 09/27/2023 12:34 PM CDT Hospital Encounter Department of Radiation Oncology in [place], [place] [address] [place] [phone] Elsie Dewey M.D. [address] [place] [address] Social History Tobacco Use Types Packs/Day Years [...] declined 10/31/2022 How often do you attend pentecostal or sabianist serv ices? Never 10/31/2022 Do you belong to any clubs o r organizations such as pentecostal groups, unions, fraternal or athletic groups, or [...] and heating? Not hard at all 10/31/2022 [facility] - Occupational Stress Questionnaire Answer [...] CDT Appointment Department of Radiation Oncology in [place], [place] [address] [place] [address] Elsie Dewey M.D. [address] [place] [address] 10/03/2023 1:45 PM CDT Appointment Department of Radiation Oncology in [place], [place] [address] [place] [address] Elsie Dewey M.D. [address] [place] [address] 10/04/2023 1:45 PM CDT Appointment Department of Radiation Oncology in [place], [place] [address] [place] [address] Elsie Dewey M.D. [address] [place] [address] 10/07/2023 1:45 PM CDT Appointment Department of Radiation Oncology in [address] [address] Elsie Dewey M.D. [address] [place] [address] 10/08/2023 1:45 PM CDT Appointment Department of Radiation Oncology in [place], [place] [address] [place] [address] Elsie Dewey M.D. [address] [place] [address] 10/08/2023 2:00 PM CDT Appointment Department of Radiation Oncology in [place], [place] [address] [place] [address] Elsie Dewey M.D. [address] [place] [address] 10/09/2023 1:45 PM CDT Appointment Department of Radiation Oncology in [address] [address] Elsie Deewy M.D. [address] [place] [address] 10/10/2023 1:45 PM CDT Appointment Department of Radiation Oncology in [place], [place] [address] [place] [address] Elsie Dewey M.D. [address] [place] [address] 10/11/2023 1:45 PM CDT Appointment Department of Radiation Oncology in [place], [place] [address] [place] [address] Elsie Dewey M.D. [address] [place] [address] 10/14/2023 1:45 PM CDT Appointment Department of Radiation Oncology in [address] [address] Elsie Dewey M.D. [address] [place] [address] 10/15/2023 1:45 PM CDT Appointment Department of Radiation Oncology in [address] [address] Elsie Dewey M.D. [address] [place] [address] 10/15/2023 2:15 PM CDT Appointment Department of Radiation Oncology in [address] [address] Elsie Dewey M.D. [address] [place] [address] 10/16/2023 1:45 PM CDT Appointment Department of Radiation Oncology in [place], [place] [address] [place] [address] Elsie Dewey M.D. [address] [place] [address] 10/17/2023 1:45 PM CDT Appointment Department of Radiation Oncology in [place], [place] [address] [place] [address] Elsie Dewey M.D. [address] [place] [address] 10/18/2023 1:45 PM CDT Appointment Department of Radiation Oncology in [address] [address] Elsie Dewey M.D. [address] [place] [address] 10/21/2023 1:45 PM CDT Appointment Department of Radiation Oncology in [address] [address] Elsie Dewey M.D. [address] [place] [address] 10/22/2023 1:45 PM CDT Appointment Department of Radiation Oncology in [place], [place] [address] [place] [address] Elsie Dewey M.D. [address] [place] [address] 10/22/2023 2:00 PM CDT Appointment Department of Radiation Oncology in [address] [address] Elsie Dewey M.D. [address] [place] [address] 10/23/2023 1:45 PM CDT Appointment Department of Radiation Oncology in [place], [place] [address] [place] [address] Elsie Dewey M.D. 200 [place] [address] 10/24/2023 1:45 PM CDT Appointment Department of Radiation Oncology in [place], [place] [address] [place] [address] Elsie Dewey M.D. [address] [place] [address] 10/25/2023 1:45 PM CDT Appointment Department of Radiation Oncology in [place], [place] [address] [place] [address] Elsie Dewey M.D. [address] [place] [address] 10/28/2023 1:45 PM CDT Appointment Department of Radiation Oncology in [place], [place] [address] [place] [address] Elsie Dewey M.D. [address] [place] [address] 10/29/2023 1:45 PM CDT Appointment Department of Radiation Oncology in [place], [place] [address] [place] [address] Elsie Dewey M.D. [address] [place] [address] 10/29/2023 2:00 PM CDT Appointment Department of Radiation Oncology in [place], [place] [address] [place] [address] Elsie Dewey M.D. [address] [place] [address] 10/30/2023 1:45 PM CDT Appointment Department of Radiation Oncology in [place], [place] [address] [place] [address] Elsie Dewey M.D. [address] [place] [address] 10/31/2023 1:45 PM CDT Appointment Department of Radiation Oncology in [place], [place] [address] [place] [address] Elsie Dewey M.D. [address] [place] [address] 11/01/2023 1:45 PM CDT Appointment Department of Radiation Oncology in [place], [place] [address] [place] [address] Elsie Dewey M.D. [address] [place] [phone] documented as of this encounter Visit Diagnoses Not on filedocumented in this encounter
--- OUTSIDE RECORDS SUMMARY | 2023-10-02 11:44 | XMS_ITS | Encounter Summary ---
Author Name Unknown Organization [facility] Address [address] [place] [address] Care Team Providers Care [facility] Psychiatrist Name Role Phone Unavailable Primary Care Provider Unavailabl e Reason for Referral * Specialty Diagnoses / Procedures Referred By Ervin frye Referred To Contact Albertina Stiles APRN, C.N.P., D.N.P. [address] [place] [phone] [facility] Region Referral ID Status Reason Start Date Expiration Date Visits Re quested Visits Authorized Encounter Details Date Type Department Care Team (Latest Contact Info) Description 09/26/2023 12:35 PM CDT - 09/26/2023 2:44 PM CDT Hospital Encounter Department of Radiation Oncology in [place], [place] [address] [place] [address] Elsie Dewey M.D. [address] [place] [phone] Kirsten Bella RGeetha [address] [place] [phone] Malignant Neoplasm Of Lung Right (HCC) Social [...] How often do you attend religion or yarsanism serv ices? Never 10/31/2022 Do you belong [...] and heating? Not hard at all 10/31/2022 [facility] - Occupational Stress Questionnaire Answer Date [...] place to sleep or slept in a long term (including now)? No 10/31/2022 Nutrition Answer Date [...] as of this encounter Progress Notes * Kirsten Bella, R.N. - 09/26/2023 1:15 PM CDT Patient was educated on side effects of radiation therapy. Their questions were answered to the best of my ability. The patient was encouraged to contact the team at any point, with questions or concerns. documented in this encounter Plan of Treatment Upcoming Encounters Date Type Department Care Team (Late st Contact Info) Description 10/02/2023 1:00 PM CDT Appointment Department of Radiation Oncology in [address] [address] Elsie Dewey M.D. [address] [place] [address] 10/03/2023 1:45 PM CDT Appointment Department of Radiation Oncology in [address] [address] Elsie Dewey M.D. [address] [place] [address] 10/04/2023 1:45 PM CDT Appointment Department of Radiation Oncology in [address] [address] Elsie Dewey M.D. [address] [place] [address] 10/07/2023 1:45 PM CDT Appointment Department of Radiation Oncology in [address] [address] Elsie Dewey M.D. [address] [place] [address] 10/08/2023 1:45 PM CDT Appointment Department of Radiation Oncology in [address] [address] Elsei Dewey M.D. [address] [place] [address] 10/08/2023 2:00 PM CDT Appointment Department of Radiation Oncology in [address] [address] Elsie Dewey M.D. [address] [place] [address] 10/09/2023 1:45 PM CDT Appointment Department of Radiation Oncology in [place], [place] [address] [place] [address] Elsie Dewey M.D. [address] [place] [address] 10/10/2023 1:45 PM CDT Appointment Department of Radiation Oncology in [place], [place] [address] [place] [address] Elsie Dewey M.D. [address] [place] [address] 10/11/2023 1:45 PM CDT Appointment Department of Radiation Oncology in [place], [place] [address] [place] [address] Elsie Dewey M.D. [address] [place] [address] 10/14/2023 1:45 PM CDT Appointment Department of Radiation Oncology in [address] [address] Elsie Dewey M.D. [address] [place] [address] 10/15/2023 1:45 PM CDT Appointment Department of Radiation Oncology in [address] [address] Elsie Dewey M.D. [address] [place] [address] 10/15/2023 2:15 PM CDT Appointment Department of Radiation Oncology in [place], [place] [address] [place] [address] Elsie Dewey M.D. [address] [place] [address] 10/16/2023 1:45 PM CDT Appointment Department of Radiation Oncology in [place], [place] [address] [place] [address] Elsie Dewey M.D. [address] [place] [address] 10/17/2023 1:45 PM CDT Appointment Department of Radiation Oncology in [address] [address] Elsie Dewey M.D. [address] [place] [address] 10/18/2023 1:45 PM CDT Appointment Department of Radiation Oncology in [place], [place] [address] [place] [address] Elsie Dewey M.D. [address] [place] [address] 10/21/2023 1:45 PM CDT Appointment Department of Radiation Oncology in [place], [place] [address] [place] [address] Elsie Dewey M.D. [address] [place] [address] 10/22/2023 1:45 PM CDT Appointment Department of Radiation Oncology in [place], [place] [address] [place] [address] Elsie Dewey M.D. [address] [place] [address] 10/22/2023 2:00 PM CDT Appointment Department of Radiation Oncology in [place], [place] [address] [place] [address] Elsie Dewey M.D. [address] [place] [address] 10/23/2023 1:45 PM CDT Appointment Department of Radiation Oncology in [place], [place] [address] [place] [address] Elsie Dewey M.D. [address] [place] [address] 10/24/2023 1:45 PM CDT Appointment Department of Radiation Oncology in [place], [place] [address] [place] [address] Elsie Dewey M.D. 200 [place] [address] 10/25/2023 1:45 PM CDT Appointment Department of Radiation Oncology in [address] [address] Elsie Dewey M.D. 200 [place] [address] 10/28/2023 1:45 PM CDT Appointment Department of Radiation Oncology in [address] [address] Elsie Dewey M.D. [address] [place] [address] 10/29/2023 1:45 PM CDT Appointment Department of Radiation Oncology in [address] [place] [address] Elsie Dewey M.D. [address] [place] [phone] 10/29/2023 2:00 PM CDT Appointment Department of Radiation Oncology in [address] [address] Elsie Dewey M.D. 200 [place] [address] 10/30/2023 1:45 PM CDT Appointment Department of Radiation Oncology in [address] [address] Elsie Dewey M.D. 200 [place] [address] 10/31/2023 1:45 PM CDT Appointment Department of Radiation Oncology in [address] [address] Elsie Dewey M.D. 200 [place] [address] 11/01/2023 1:45 PM CDT Appointment Department of Radiation Oncology in [address] [address] Elsie Dewey M.D. [address] [place] [address] Scheduled Referrals Name Type Priority Associated Diagnoses Order Schedule Radiation Oncology - Nurse education visit (clinic) Outpatient Referral Routine Malignant Neoplasm Of Lung Right (HCC) Once for 1 Occurrences starting 09/26/2023 until 09/26/2023 documented as of this encounter Visit Diagnoses Diagnosis Malignant Neoplasm Of Lung Right (HCC) documented in this encounter
--- OUTSIDE RECORDS SUMMARY | 2023-10-02 11:45 | XMS_ITS | Encounter Summary ---
Author Name Unknown Organization [facility] Address [address] [place] [address] Care Team Providers Care Transcript Clerk Name Role Phone Unavailable Primary Care Provider Unavailabl e Encounter Details Date Type Department Care Team (Late st Contact Info) Description 09/09/2023 Orders Only Division of Pulmonary Medicine in [place], [place] [address] [place] [phone] Nilo Pickett APRN, C.N.P., D.N.P. 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 Never 10/31/2022 Do you belong to any clubs o r organizations such as rastafarian groups, unions, fraternal or athletic groups, or [...] and heating? Not hard at all 10/31/2022 [facility] - Occupational [...] place to sleep or slept in a care home (including now)? No 10/31/2022 Nutrition Answer [...] CDT Appointment Department of Radiation Oncology in [place], [place] [address] [place] [phone] Elsie [place] [address] 10/03/2023 1:45 PM CDT Appointment Department of Radiation Oncology in [address] [address] Elsie Dewey M.D. [address] [place] [address] 10/04/2023 1:45 PM CDT Appointment Department of Radiation Oncology in [address] [address] Elsie Dewey M.D. [address] [place] [phone] 10/07/2023 1:45 PM CDT Appointment Department of Radiation Oncology in [address] [address] Elsie Dewey M.D. [address] [place] [phone] 10/08/2023 1:45 PM CDT Appointment Department of Radiation Oncology in [address] [address] Elsie Dewey M.D. [address] [place] [address] 10/08/2023 2:00 PM CDT Appointment Department of Radiation Oncology in [address] [address] Elsie Dewey M.D. [address] [place] [address] 10/09/2023 1:45 PM CDT Appointment Department of Radiation Oncology in [address] [address] Elsie Dewey M.D. [address] [place] [address] 10/10/2023 1:45 PM CDT Appointment Department of Radiation Oncology in [place], [place] [address] [place] [address] Elsie Dewey M.D. [address] [place] [address] 10/11/2023 1:45 PM CDT Appointment Department of Radiation Oncology in [address] [address] Elsie Dewey M.D. [address] [place] [address] 10/14/2023 1:45 PM CDT Appointment Department of Radiation Oncology in [address] [address] Elsie Dewey M.D. [address] [place] [address] 10/15/2023 1:45 PM CDT Appointment Department of Radiation Oncology in [address] [address] Elsie Dewey M.D. [address] [place] [address] 10/15/2023 2:15 PM CDT Appointment Department of Radiation Oncology in [address] [address] Elsie Dewey M.D. [address] [place] [address] 10/16/2023 1:45 PM CDT Appointment Department of Radiation Oncology in [place], [place] [address] [place] [phone] Elsie Dewey M.D. [address] [place] [address] 10/17/2023 1:45 PM CDT Appointment Department of Radiation Oncology in [place], [place] [address] [place] [address] Elsie Dewey M.D. [address] [place] [address] 10/18/2023 1:45 PM CDT Appointment Department of Radiation Oncology in [address] [address] Elsie Dewey M.D. [address] [place] [address] 10/21/2023 1:45 PM CDT Appointment Department of Radiation Oncology in [place], [place] [address] [place] [address] Elsie Dewey M.D. [address] [place] [address] 10/22/2023 1:45 PM CDT Appointment Department of Radiation Oncology in [place], [place] [address] [place] [address] Elsie Dewey M.D. [address] [place] [address] 10/22/2023 2:00 PM CDT Appointment Department of Radiation Oncology in [address] [address] Elsie Dewey M.D. [address] [place] [address] 10/23/2023 1:45 PM CDT Appointment Department of Radiation Oncology in [place], [place] [address] [place] [phone] Elsie Dewey M.D. [address] [place] [address] 10/24/2023 1:45 PM CDT Appointment Department of Radiation Oncology in [place], [place] [address] [place] [phone] Elsie Dewey M.D. [address] [place] [address] 10/25/2023 1:45 PM CDT Appointment Department of Radiation Oncology in [address] [address] Elsie Dewey M.D. [address] [place] [address] 10/28/2023 1:45 PM CDT Appointment Department of Radiation Oncology in [place], [place] [address] [place] [address] Elsie Dewey M.D. [address] [place] [address] 10/29/2023 1:45 PM CDT Appointment Department of Radiation Oncology in [place], [place] [address] [place] [address] Elsie Dewey M.D. [address] [place] [address] 10/29/2023 2:00 PM CDT Appointment Department of Radiation Oncology in [place], [place] [address] [place] [phone] Elsie Dewey M.D. [address] [place] [address] 10/30/2023 1:45 PM CDT Appointment Department of Radiation Oncology in [place], [place] [address] [place] [phone] Elsie Dewey M.D. [address] [place] [address] 10/31/2023 1:45 PM CDT Appointment Department of Radiation Oncology in [address] [address] Elsie Dewey M.D. [address] [place] [address] 11/01/2023 1:45 PM CDT Appointment Department of Radiation Oncology in [address] [address] Elsie Dewey M.D. 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
--- OUTSIDE RECORDS SUMMARY | 2023-10-02 11:45 | XMS_ITS | Encounter Summary ---
Author Name Unknown Organization [facility] Address [address] [place] [address] Care Team Providers Care Wheat Buyer Name Role Phone Unavailable Primary Care Provider Unavailabl e Encounter Details Date Type Department Care Team (Late st Contact Info) Description 09/24/2023 9:00 AM CDT Hospital Encounter Department of Radiation Oncology in [place], [place] [address] [place] [phone] Elsie Dewey M.D. [address] [place] [phone] Social History Tobacco Use Types Packs/Day Years [...] declined 10/31/2022 How often do you attend faith or mandaen serv ices? Never 10/31/2022 Do you belong to any clubs o r organizations such as faith groups, unions, fraternal or athletic groups, or [...] and heating? Not hard at all 10/31/2022 [facility] - Occupational Stress Questionnaire Answer Date Recorded [...] place to sleep or slept in a halfway (including now)? No 10/31/2022 Nutrition Answer Date [...] CDT Appointment Department of Radiation Oncology in [place], [place] [address] [place] [address] Elsie Dewey M.D. [address] [place] [address] 10/03/2023 1:45 PM CDT Appointment Department of Radiation Oncology in [place], [place] [address] [place] [address] Elsie Dewey M.D. [address] [place] [address] 10/04/2023 1:45 PM CDT Appointment Department of Radiation Oncology in [place], [place] [address] [place] [address] Elsie Dewey M.D. [address] [place] [address] 10/07/2023 1:45 PM CDT Appointment Department of Radiation Oncology in [address] [address] Elsie Dewey M.D. [address] [place] [address] 10/08/2023 1:45 PM CDT Appointment Department of Radiation Oncology in [place], [place] [address] [place] [address] Elsie Dewey M.D. [address] [place] [address] 10/08/2023 2:00 PM CDT Appointment Department of Radiation Oncology in [place], [place] [address] [place] [phone] Elsie Dewey M.D. [address] [place] [address] 10/09/2023 1:45 PM CDT Appointment Department of Radiation Oncology in [address] [address] Elsie Dewey M.D. [address] [place] [address] 10/10/2023 1:45 PM CDT Appointment Department of Radiation Oncology in [place], [place] [address] [place] [address] Elsie Dewey M.D. [address] [place] [address] 10/11/2023 1:45 PM CDT Appointment Department of Radiation Oncology in [place], [place] [address] [place] [address] Elsie Dewey M.D. [address] [place] [address] 10/14/2023 1:45 PM CDT Appointment Department of Radiation Oncology in [address] [address] Elsie Dewey M.D. [address] [place] [phone] 10/15/2023 1:45 PM CDT Appointment Department of Radiation Oncology in [address] [address] Elsie Dewey M.D. [address] [place] [address] 10/15/2023 2:15 PM CDT Appointment Department of Radiation Oncology in [address] [address] Elsie Dewey M.D. [address] [place] [address] 10/16/2023 1:45 PM CDT Appointment Department of Radiation Oncology in [place], [place] [address] [place] [phone] Elsie Dewey M.D. [address] [place] [address] 10/17/2023 1:45 PM CDT Appointment Department of Radiation Oncology in [place], [place] [address] [place] [address] Elsie Dewey M.D. [address] [place] [address] 10/18/2023 1:45 PM CDT Appointment Department of Radiation Oncology in [address] [address] Elsie Dewey M.D. [address] [place] [address] 10/21/2023 1:45 PM CDT Appointment Department of Radiation Oncology in [address] [address] Elsie Dewey M.D. [address] [place] [address] 10/22/2023 1:45 PM CDT Appointment Department of Radiation Oncology in [place], [place] [address] [place] [address] Elsie Dewey M.D. [address] [place] [address] 10/22/2023 2:00 PM CDT Appointment Department of Radiation Oncology in [address] [address] Elsie Dewey M.D. [address] [place] [address] 10/23/2023 1:45 PM CDT Appointment Department of Radiation Oncology in [place], [place] [address] [place] [address] Elsie Dewey M.D. [address] [place] [address] 10/24/2023 1:45 PM CDT Appointment Department of Radiation Oncology in [place], [place] [address] [place] [address] Elsie Dewey M.D. [address] [place] [address] 10/25/2023 1:45 PM CDT Appointment Department of Radiation Oncology in [place], [place] [address] [place] [address] Elsie Dewey M.D. [address] [place] [address] 10/28/2023 1:45 PM CDT Appointment Department of Radiation Oncology in [place], [place] [address] [place] [address] Elsie Dewey M.D. 200 [place] [address] 10/29/2023 1:45 PM CDT Appointment Department of Radiation Oncology in [place], [place] [address] [place] [address] Elsie Dewey M.D. [address] [place] [address] 10/29/2023 2:00 PM CDT Appointment Department of Radiation Oncology in [place], [place] [address] [place] [address] Elsie Dewey M.D. [address] [place] [address] 10/30/2023 1:45 PM CDT Appointment Department of Radiation Oncology in [place], [place] [address] [place] [address] Elsie Dewey M.D. [address] [place] [address] 10/31/2023 1:45 PM CDT Appointment Department of Radiation Oncology in [place], [place] [address] [place] [address] Elsie Dewey M.D. [address] [place] [address] 11/01/2023 1:45 PM CDT Appointment Department of Radiation Oncology in [place], [place] [address] [place] [address] Elsie Dewey M.D. [address] [place] [phone] documented as of this encounter Visit Diagnoses Not on filedocumented in this encounter
--- OUTSIDE RECORDS SUMMARY | 2023-10-02 11:45 | XMS_ITS | Encounter Summary ---
Author Name Unknown Organization [facility] Address [address] [place] [address] Care Team Providers Care Can Patcher Name Role Phone Unavailable Primary Care Provider Unavailabl e Encounter Details Date Type Department Care Team (Late st Contact Info) Description 09/25/2023 12:34 PM CDT Hospital Encounter Department of Radiation Oncology in [place], [place] [address] [place] [address] Elsie Dewey M.D. [address] [place] [phone] Social History Tobacco Use Types Packs/Day Years [...] How often do you attend presybeterian or christian serv ices? Never 10/31/2022 Do you belong [...] heating? Not hard at all 10/31/2022 [facility] - Occupational Stress Questionnaire Answer [...] CDT Appointment Department of Radiation Oncology in [place], [place] [address] [place] [address] Elsie Dewey M.D. [address] [place] [address] 10/03/2023 1:45 PM CDT Appointment Department of Radiation Oncology in [place], [place] [address] [place] [phone] Elsie Dewey M.D. [address] [place] [address] 10/04/2023 1:45 PM CDT Appointment Department of Radiation Oncology in [place], [place] [address] [place] [address] Elsie Dewey M.D. [address] [place] [address] 10/07/2023 1:45 PM CDT Appointment Department of Radiation Oncology in [address] [address] Elsie Dewey M.D. [address] [place] [address] 10/08/2023 1:45 PM CDT Appointment Department of Radiation Oncology in [place], [place] [address] [place] [address] Elsie Dewey M.D. [address] [place] [address] 10/08/2023 2:00 PM CDT Appointment Department of Radiation Oncology in [place], [place] [address] [place] [address] Elsie Dewey M.D. [address] [place] [address] 10/09/2023 1:45 PM CDT Appointment Department of Radiation Oncology in [address] [address] Elsie Dewey M.D. [address] [place] [address] 10/10/2023 1:45 PM CDT Appointment Department of Radiation Oncology in [place], [place] [address] [place] [address] Elsie Dewey M.D. [address] [place] [address] 10/11/2023 1:45 PM CDT Appointment Department of Radiation Oncology in [place], [place] [address] [place] [address] Elsie Dewey M.D. [address] [place] [address] 10/14/2023 1:45 PM CDT Appointment Department of Radiation Oncology in [address] [address] Elsie Dewey M.D. [address] [place] [address] 10/15/2023 1:45 PM CDT Appointment Department of Radiation Oncology in [address] [address] Elsie Dewey M.D. [address] [place] [address] 10/15/2023 2:15 PM CDT Appointment Department of Radiation Oncology in [address] [address] Elsie Dewey M.D. [address] [place] [address] 10/16/2023 1:45 PM CDT Appointment Department of Radiation Oncology in [place], [place] [address] [place] [address] Elsie Dewey M.D. [address] [place] [address] 10/17/2023 1:45 PM CDT Appointment Department of Radiation Oncology in [place], [place] [address] [place] [address] Elsie Dewey M.D. [address] [place] [address] 10/18/2023 1:45 PM CDT Appointment Department of Radiation Oncology in [address] [address] Elsie Dewey M.D. [address] [place] [address] 10/21/2023 1:45 PM CDT Appointment Department of Radiation Oncology in [address] [address] Elsie Dewey M.D. [address] [place] [address] 10/22/2023 1:45 PM CDT Appointment Department of Radiation Oncology in [place], [place] [address] [place] [address] Elsie Dewey M.D. [address] [place] [address] 10/22/2023 2:00 PM CDT Appointment Department of Radiation Oncology in [address] [address] Elsie Dewey M.D. [address] [place] [address] 10/23/2023 1:45 PM CDT Appointment Department of Radiation Oncology in [place], [place] [address] [place] [address] Elsie Dewey M.D. 200 [place] [address] 10/24/2023 1:45 PM CDT Appointment Department of Radiation Oncology in [place], [place] [address] [place] [address] Elsie Dewey M.D. [address] [place] [address] 10/25/2023 1:45 PM CDT Appointment Department of Radiation Oncology in [place], [place] [address] [place] [address] Elsie Dewey M.D. [address] [place] [address] 10/28/2023 1:45 PM CDT Appointment Department of Radiation Oncology in [place], [place] [address] [place] [address] Elsie Dewey M.D. 200 [place] [address] 10/29/2023 1:45 PM CDT Appointment Department of Radiation Oncology in [place], [place] [address] [place] [address] Elsie Dewey M.D. [address] [place] [address] 10/29/2023 2:00 PM CDT Appointment Department of Radiation Oncology in [place], [place] [address] [place] [address] Elsie Dewey M.D. [address] [place] [address] 10/30/2023 1:45 PM CDT Appointment Department of Radiation Oncology in [place], [place] [address] [place] [address] Elsie Dewey M.D. [address] [place] [address] 10/31/2023 1:45 PM CDT Appointment Department of Radiation Oncology in [place], [place] [address] [place] [address] Elsie Dewey M.D. 200 [place] [address] 11/01/2023 1:45 PM CDT Appointment Department of Radiation Oncology in [place], [place] [address] [place] [address] Elsie Dewey M.D. [address] [place] [phone] documented as of this encounter Visit Diagnoses Not on filedocumented in this encounter
--- OUTSIDE RECORDS SUMMARY | 2023-10-02 11:45 | XMS_ITS | Encounter Summary ---
Author Name Unknown Organization [facility] Address [address] [place] [address] Care Team Providers Care Production Engineer Track Name Role Phone Unavailable Primary Care Provider Unavailabl e Reason for Referral * Radiation Therapy (Routine) - Authorized Specialty Diagnoses / Procedures Referred By Contac t Referred To Contact Diagnoses Malignant Neoplasm Of Lung Right (HCC) Procedures Management Visit Elsie Dewey M.D. [address] [place] [address] [facility] Region Referral ID Status Reason Start Date Expiration Date V isits Requested Visits Authorized [id number] Authorized 09/09/2023 09/08/2024 10 10 Reason for Visit * Radiation Therapy (Routine) - Authorized Specialty Diagnoses / Procedures Referred By Ervin frye Referred To Contact Diagnoses Malignant Neoplasm Of Lung Right (HCC) Procedures Management Visit Elsie Dewey M.D. [address] [place] [address] [facility] Region Referral ID Status Reason Start Date Expiration Date V isits Requested Visits Authorized [id number] Authorized 09/09/2023 09/08/2024 10 10 Encounter Details Date Type Department Care Team (Latest Contact Info) Description 09/24/2023 8:42 AM CDT - 09/24/2023 8:59 AM CDT Hospital Encounter Department of Radiation Oncology in [place], [place] [address] [place] [phone] Elsie Dewey M.D. [address] [place] [address] Malignant Neoplasm Of Lung Right (HCC) Social [...] How often do you attend anabaptism or advent serv ices? Never 10/31/2022 Do you belong [...] and heating? Not hard at all 10/31/2022 [facility] [place] of Occupat ional Health - Occupational Stress [...] Sign Reading Time Taken Comments Blood Pressure 144/69 09/24/2023 8:52 AM CDT Pulse 70 09/24/2023 8:52 AM CDT Temperature 36.8 ??C (98.3 ??F) 09/24/2023 8:52 AM CD T Respiratory Rate - - Oxygen Saturation - - Inhaled Oxygen Concentration - - Weight 59 kg (130 lb 1.1 oz) 09/24/2023 8:52 AM CDT Height - - Body Mass Index 23.79 09/05/2023 6:11 AM CDT documented in this [...] 40 mg by mouth at bedtime. 05/28/2022 warfarin (COUMADIN) 2 mg tablet TAKE 1.5 TABLETS BY MOUTH EVERY SAT AND SAT; TAKE TWO TABLETS ALL OTHER DAYS OR DIRECTED 09/17/2022 documented as of this encounter Progress Notes * Elsie Dewey M.D. - 09/24/2023 9:15 AM CDT ATTESTATION FOR MANAGEMENT VISIT I saw and evaluated the patient and participated in the eubanks portions of the service as noted below.I reviewed the documentation of Ms. Bella Win RN and agree with the findings and plan. The patient appears well on exam. We will continue with radiation as planned and monitor weekly. Elsie Dewey M.D., 09/24/2023 SUBJECTIVE REASON FOR VISIT Evaluation for side effects while receiving radiation treatment for 1. Malignant Neoplasm Of Lung Right (HCC) SUPERVISED BY: Elsie Dewey M.D. HISTORY OF PRESENT ILLNESS Mrs. Anila Henderson is a 73 y.o. female with history of a history of multifocal lung cancer and a previously treated MILC with SBRT in 2015 who now returns after undergoing bronchoscopy and EBUS for mediastinal avidity and a rapidly enlarging RUL lesion. Patient is now undergoing radiation therapy to tumor in the right upper lobe and lymph nodes. Treatment Course: 2xLung Plan ID Fractions Dose / Fraction (cGy) Dose Treated (cGy) Dose Planned (cGy) First Treatment Last Treatment Elapsed Days [id number] [phone] 09/23/2023 09/24/2023 1 Course Summary 09/23/2023 09/24/2023 1 The patient was seen and examined today with Dr. Dewey. The patient reports that she had her port placed yesterday. Patient denies fevers, sore throat or cough. Patient feels like she is eating and drinking well. Weight September 24, 2023: 59.0 starting weight PATIENT REPORTED SYMPTOM SCREEN FATIGUE (Scale: 0 = no fatigue; 10 = worst fatigue you can imagine): 6 PAIN (Scale: 0 = no pain; 10 = worst pain you can imagine): 5 OVERALL QUALITY OF LIFE (Scale: 0 = as bad as can be; 10 = as good as can be): 9 OBJECTIVE BP 144/69 (BP Location: Left arm, Patient Position: Sitting, Cuff Size: Regular) Pulse 70 Temp 36.8 ??C (Temporal) Wt 59 kg BMI 23.79 kg/m?? PHYSICAL EXAM General: Alert and oriented [...] of completion is on November 01, 2023 The patient is tolerating radiation treatment well overall. We will continue to see patient in weekly management visits through our her course of radiation therapy. Nurse education visit has been scheduled. Patient had port placed yesterday. Patient is receiving weekly carboplatin and taxol under the care of Dr. Mitchell at [facility]. She will contact us with any questions or concerns. We will continue with radiation treatment as planned. Signed by: Bella Win R.N. 09/24/2023 10:26 AM CDT documented in this encounter Plan of Treatment Upcoming Encounters Date Type Department Care Team (Late st Contact Info) Description 10/02/2023 1:00 PM CDT Appointment Department of Radiation Oncology in [address] [phone] Elsie Dewey M.D. [address] [place] [phone] 10/03/2023 1:45 PM CDT Appointment Department of Radiation Oncology in [place], [place] [address] [place] [phone] Elsie Dewey M.D. [address] [place] [phone] 10/04/2023 1:45 PM CDT Appointment Department of Radiation Oncology in [address] [address] Elsie Dewey M.D. [address] [place] [phone] 10/07/2023 1:45 PM CDT Appointment Department of Radiation Oncology in [address] [address] Elsie Dewey M.D. [address] [place] [phone] 10/08/2023 1:45 PM CDT Appointment Department of Radiation Oncology in [address] [address] Elsie Dewey M.D. [address] [place] [phone] 10/08/2023 2:00 PM CDT Appointment Department of Radiation Oncology in [address] [address] Elsie Dewey M.D. [address] [place] [phone] 10/09/2023 1:45 PM CDT Appointment Department of Radiation Oncology in [place], [place] [address] [place] [phone] Elsie Dewey M.D. [address] [place] [phone] 10/10/2023 1:45 PM CDT Appointment Department of Radiation Oncology in [place], [place] [address] [place] [address] Elsie Dewey M.D. [address] [place] [address] 10/11/2023 1:45 PM CDT Appointment Department of Radiation Oncology in [address] [address] Elsie Dewey M.D. [address] [place] [phone] 10/14/2023 1:45 PM CDT Appointment Department of Radiation Oncology in [address] [address] Elsie Dewey M.D. [address] [place] [address] 10/15/2023 1:45 PM CDT Appointment Department of Radiation Oncology in [address] [address] Elsie Dewey M.D. [address] [place] [phone] 10/15/2023 2:15 PM CDT Appointment Department of Radiation Oncology in [address] [address] Elsie Dewey M.D. [address] [place] [address] 10/16/2023 1:45 PM CDT Appointment Department of Radiation Oncology in [place], [place] [address] [place] [address] Elsie Dewey M.D. [address] [place] [address] 10/17/2023 1:45 PM CDT Appointment Department of Radiation Oncology in [place], [place] [address] [place] [phone] Elsie Dewey M.D. [address] [place] [address] 10/18/2023 1:45 PM CDT Appointment Department of Radiation Oncology in [place], [place] [address] [place] [address] Elsie Dewey M.D. [address] [place] [address] 10/21/2023 1:45 PM CDT Appointment Department of Radiation Oncology in [place], [place] [address] [place] [address] Elsie Dewey M.D. [address] [place] [address] 10/22/2023 1:45 PM CDT Appointment Department of Radiation Oncology in [place], [place] [address] [place] [phone] Elsie Dewey M.D. [address] [place] [address] 10/22/2023 2:00 PM CDT Appointment Department of Radiation Oncology in [place], [place] [address] [place] [address] Elsie Dewey M.D. [address] [place] [phone] 10/23/2023 1:45 PM CDT Appointment Department of Radiation Oncology in [place], [place] [address] [place] [address] Elsie Dewey M.D. [address] [place] [phone] 10/24/2023 1:45 PM CDT Appointment Department of Radiation Oncology in [address] [address] Elsie Dewey M.D. [address] [place] [phone] 10/25/2023 1:45 PM CDT Appointment Department of Radiation Oncology in [place], [place] [address] [place] [address] Elsie Dewey M.D. [address] [place] [phone] 10/28/2023 1:45 PM CDT Appointment Department of Radiation Oncology in [place], [place] [address] [place] [phone] Elsie Dewey M.D. [address] [place] [phone] 10/29/2023 1:45 PM CDT Appointment Department of Radiation Oncology in [place], [place] [address] [place] [address] Elsie Dewey M.D. [address] [place] [phone] 10/29/2023 2:00 PM CDT Appointment Department of Radiation Oncology in [place], [place] [address] [place] [address] Elsie Dewey M.D. [address] [place] [address] 10/30/2023 1:45 PM CDT Appointment Department of Radiation Oncology in [address] [address] Elsie Dewey M.D. [address] [place] [address] 10/31/2023 1:45 PM CDT Appointment Department of Radiation Oncology in [address] [address] Elsie Dewey M.D. [address] [place] [address] 11/01/2023 1:45 PM CDT Appointment Department of Radiation Oncology in [address] [address] Elsie Dewey M.D. [address] [place] [phone] Scheduled Orders Name Type Priority Associated Diagnoses Orde r Schedule Management Visit Radiation Oncology Routine Malignant Neoplasm Of Lung Right (HCC) Once for 1 Occurrences starting 09/24/2023 until 09/24/2023 documented as of this encounter Visit Diagnoses Diagnosis Malignant Neoplasm Of Lung Right (HCC) documented in this encounter
--- OUTSIDE RECORDS SUMMARY | 2023-10-02 11:45 | XMS_ITS | Encounter Summary ---
Author Name Unknown Organization [facility] Address [address] [place] [address] Care Team Providers Care Apartment Maintenance Name Role Phone Unavailable Primary Care Provider Unavailabl e Encounter Details Date Type Department Care Team (Late st Contact Info) Description 09/23/2023 1:23 PM CDT Hospital Encounter Department of Radiation Oncology in [place], [place] [address] [place] [address] Elsie Dewey M.D. [address] [place] [phone] Social History Tobacco Use Types Packs/Day Years [...] declined 10/31/2022 How often do you attend pentecostalism or restorationist serv ices? Never 10/31/2022 Do you belong to any clubs o r organizations such as pentecostalism groups, unions, fraternal or athletic groups, or [...] and heating? Not hard at all 10/31/2022 [facility] - Occupational Stress Questionnaire Answer [...] place to sleep or slept in a [place] health care facility (including now)? No 10/31/2022 Nutrition Answer Date [...] CDT Appointment Department of Radiation Oncology in [place], [place] [address] [place] [phone] Elsie Dewey M.D. [address] [place] [address] 10/03/2023 1:45 PM CDT Appointment Department of Radiation Oncology in [place], [place] [address] [place] [phone] Elsie Dewey M.D. [address] [place] [address] 10/04/2023 1:45 PM CDT Appointment Department of Radiation Oncology in [place], [place] [address] [place] [address] Elsie Dewey M.D. [address] [place] [address] 10/07/2023 1:45 PM CDT Appointment Department of Radiation Oncology in [address] [address] Elsie Dewey M.D. [address] [place] [address] 10/08/2023 1:45 PM CDT Appointment Department of Radiation Oncology in [place], [place] [address] [place] [address] Elsie Dewey M.D. [address] [place] [address] 10/08/2023 2:00 PM CDT Appointment Department of Radiation Oncology in [place], [place] [address] [place] [phone] Elsie Dewey M.D. [address] [place] [address] 10/09/2023 1:45 PM CDT Appointment Department of Radiation Oncology in [address] [address] Elsie Dewey M.D. [address] [place] [address] 10/10/2023 1:45 PM CDT Appointment Department of Radiation Oncology in [place], [place] [address] [place] [address] Elsie Dewey M.D. [address] [place] [address] 10/11/2023 1:45 PM CDT Appointment Department of Radiation Oncology in [place], [place] [address] [place] [phone] Elsie Dewey M.D. [address] [place] [address] 10/14/2023 1:45 PM CDT Appointment Department of Radiation Oncology in [address] [address] Elsie Dewey M.D. [address] [place] [address] 10/15/2023 1:45 PM CDT Appointment Department of Radiation Oncology in [address] [address] Elsie Dewey M.D. [address] [place] [address] 10/15/2023 2:15 PM CDT Appointment Department of Radiation Oncology in [address] [address] Elsie Dewey M.D. [address] [place] [address] 10/16/2023 1:45 PM CDT Appointment Department of Radiation Oncology in [place], [place] [address] [place] [address] Elsie Dewey M.D. [address] [place] [address] 10/17/2023 1:45 PM CDT Appointment Department of Radiation Oncology in [place], [place] [address] [place] [address] Elsie Dewey M.D. [address] [place] [address] 10/18/2023 1:45 PM CDT Appointment Department of Radiation Oncology in [address] [address] Elsie Dewey M.D. [address] [place] [address] 10/21/2023 1:45 PM CDT Appointment Department of Radiation Oncology in [address] [address] Elsie Dewey M.D. [address] [place] [address] 10/22/2023 1:45 PM CDT Appointment Department of Radiation Oncology in [place], [place] [address] [place] [address] Elsie Dewey M.D. [address] [place] [address] 10/22/2023 2:00 PM CDT Appointment Department of Radiation Oncology in [address] [address] Elsie Dewey M.D. [address] [place] [address] 10/23/2023 1:45 PM CDT Appointment Department of Radiation Oncology in [place], [place] [address] [place] [address] Elsie Dewey M.D. [address] [place] [address] 10/24/2023 1:45 PM CDT Appointment Department of Radiation Oncology in [place], [place] [address] [place] [address] Elsie Dewey M.D. [address] [place] [address] 10/25/2023 1:45 PM CDT Appointment Department of Radiation Oncology in [place], [place] [address] [place] [address] Elsie Dewey M.D. [address] [place] [address] 10/28/2023 1:45 PM CDT Appointment Department of Radiation Oncology in [place], [place] [address] [place] [address] Elsie Dewey M.D. [address] [place] [address] 10/29/2023 1:45 PM CDT Appointment Department of Radiation Oncology in [place], [place] [address] [place] [address] Elsie Dewey M.D. [address] [place] [address] 10/29/2023 2:00 PM CDT Appointment Department of Radiation Oncology in [place], [place] [address] [place] [address] Elsie Dewey M.D. [address] [place] [address] 10/30/2023 1:45 PM CDT Appointment Department of Radiation Oncology in [place], [place] [address] [place] [address] Elsie Dewey M.D. [address] [place] [address] 10/31/2023 1:45 PM CDT Appointment Department of Radiation Oncology in [place], [place] [address] [place] [address] Elsie Dewey M.D. [address] [place] [address] 11/01/2023 1:45 PM CDT Appointment Department of Radiation Oncology in [place], [place] [address] [place] [address] Elsie Dewey M.D. [address] [place] [phone] documented as of this encounter Visit Diagnoses Not on filedocumented in this encounter
--- OUTSIDE RECORDS SUMMARY | 2023-10-02 11:45 | XMS_ITS | Encounter Summary ---
Author Name Unknown Organization [facility] Address [address] [place] [address] Care Team Providers Care Dentist Private Practice Name Role Phone Unavailable Primary Care Provider Unavailabl e Reason for Visit * Radiation Therapy (Routine) - Closed Specialty Diagnoses / Procedures Referred By Ervin frye Referred To Contact Diagnoses Malignant Neoplasm Of Lung Right (HCC) Procedures Initial Rad Onc Treatment Planning CT Simulation Elsie Dewey M.D. [address] [place] [address] [facility] Region Referral ID Status Reason Start Date Expiration Date Visits Re quested Visits Authorized [id number] Closed 09/09/2023 09/08/2024 1 1 Encounter Details Date Type Department Care Team (Latest Contact Info) Description 09/11/2023 12:06 PM CDT - 09/13/2023 3:24 PM CDT Hospital Encounter Department of Radiation Oncology in [place], [place] [address] [place] [phone] Elsie Dewey M.D. [address] [place] [phone] Bella Win R.N. [address] [place] [phone] Malignant Neoplasm Of Lung Right (HCC) [...] declined 10/31/2022 How often do you attend oriental orthodox or lutheran serv ices? Never 10/31/2022 Do you belong to any clubs o r organizations such as oriental orthodox groups, unions, fraternal or athletic groups, [...] and heating? Not hard at all 10/31/2022 [facility] of Occupat ional Health - Occupational Stress [...] Take 1 tablet by mouth daily. 09/19/2011 sertraline (ZOLOFT) 50 mg tablet Take 50 mg by mouth daily. 05/28/2022 simvastatin (ZOCOR) 40 mg tablet Take 40 mg by mouth at bedtime. 05/28/2022 warfarin (COUMADIN) 2 mg tablet TAKE 1.5 TABLETS BY MOUTH EVERY TUE AND SAT; TAKE TWO TABLETS ALL OTHER DAYS OR DIRECTED 09/17/2022 documented as of this encounter Plan of Treatment Upcoming Encounters Date Type Department Care Team (Late st Contact Info) Description 10/02/2023 1:00 PM CDT Appointment Department of Radiation Oncology in [place], [place] [address] [place] [address] Elsie Dewey M.D. [address] [place] [address] 10/03/2023 1:45 PM CDT Appointment Department of Radiation Oncology in [place], [place] [address] [place] [phone] Elsie Dewey M.D. [address] [place] [address] 10/04/2023 1:45 PM CDT Appointment Department of Radiation Oncology in [place], [place] [address] [place] [address] Elsie Dweey M.D. [address] [place] [address] 10/07/2023 1:45 PM CDT Appointment Department of Radiation Oncology in [address] [address] Elsie Dewey M.D. [address] [place] [address] 10/08/2023 1:45 PM CDT Appointment Department of Radiation Oncology in [address] [address] Elsie Dewey M.D. [address] [place] [address] 10/08/2023 2:00 PM CDT Appointment Department of Radiation Oncology in [address] [address] Elsie Dewey M.D. [address] [place] [address] 10/09/2023 1:45 PM CDT Appointment Department of Radiation Oncology in [address] [address] Elsie Dewey M.D. [address] [place] [address] 10/10/2023 1:45 PM CDT Appointment Department of Radiation Oncology in [place], [place] [address] [place] [address] Elsie Dewey M.D. [address] [place] [address] 10/11/2023 1:45 PM CDT Appointment Department of Radiation Oncology in [place], [place] [address] [place] [address] Elsie Dewey M.D. [address] [place] [address] 10/14/2023 1:45 PM CDT Appointment Department of Radiation Oncology in [place], [place] [address] [place] [address] Elsie Deewy M.D. [address] [place] [address] 10/15/2023 1:45 PM CDT Appointment Department of Radiation Oncology in [place], [place] [address] [place] [address] Elsie Dewey M.D. [address] [place] [address] 10/15/2023 2:15 PM CDT Appointment Department of Radiation Oncology in [place], [place] [address] [place] [phone] Elsie Dewey M.D. [address] [place] [address] 10/16/2023 1:45 PM CDT Appointment Department of Radiation Oncology in [place], [place] [address] [place] [address] Elsie Dewey M.D. [address] [place] [address] 10/17/2023 1:45 PM CDT Appointment Department of Radiation Oncology in [place], [place] [address] [place] [address] Elsie Dewey M.D. [address] [place] [address] 10/18/2023 1:45 PM CDT Appointment Department of Radiation Oncology in [address] [address] Elsie Dewey M.D. [address] [place] [address] 10/21/2023 1:45 PM CDT Appointment Department of Radiation Oncology in [place], [place] [address] [place] [address] Elsie Dewey M.D. [address] [place] [address] 10/22/2023 1:45 PM CDT Appointment Department of Radiation Oncology in [place], [place] [address] [place] [address] Elsie Dewey M.D. [address] [place] [address] 10/22/2023 2:00 PM CDT Appointment Department of Radiation Oncology in [address] [address] Elsie Dewey M.D. [address] [place] [address] 10/23/2023 1:45 PM CDT Appointment Department of Radiation Oncology in [place], [place] [address] [place] [address] Elsie Dewey M.D. [address] [place] [address] 10/24/2023 1:45 PM CDT Appointment Department of Radiation Oncology in [address] [address] Elsie Dewey M.D. [address] [place] [address] 10/25/2023 1:45 PM CDT Appointment Department of Radiation Oncology in [address] [address] Elsie Dewey M.D. [address] [place] [address] 10/28/2023 1:45 PM CDT Appointment Department of Radiation Oncology in [address] [address] Elsie Dewey M.D. [address] [place] [address] 10/29/2023 1:45 PM CDT Appointment Department of Radiation Oncology in [address] [address] Elsie Dewey M.D. [address] [place] [address] 10/29/2023 2:00 PM CDT Appointment Department of Radiation Oncology in [address] [place] [address] Elsie Dewey M.D. [address] [place] [address] 10/30/2023 1:45 PM CDT Appointment Department of Radiation Oncology in [address] [address] Elsie Dewey M.D. [address] [place] [address] 10/31/2023 1:45 PM CDT Appointment Department of Radiation Oncology in [address] [address] Elsie Dewey M.D. [address] [place] [address] 11/01/2023 1:45 PM CDT Appointment Department of Radiation Oncology in [address] [address] Elsie Dewey M.D. [address] [place] [address] documented as of this encounter Visit Diagnoses [...]
--- OUTSIDE RECORDS SUMMARY | 2023-10-02 11:45 | XMS_ITS | Encounter Summary ---
Author Name Unknown Organization [facility] Address [address] [place] [address] Care Team Providers Care Inbound Call Center Representative Name Role Phone Unavailable Primary Care Provider Unavailabl e Encounter Details Date Type Department Care Team (Late st Contact Info) Description 09/10/2023 Tumor Board Conference Department of Radiation Oncology in [place], [place] [address] [place] [phone] Elsie Dewey M.D. [address] [place] [phone] Social History Tobacco Use Types Packs/Day Years [...] How often do you attend anabaptism or church serv ices? Never 10/31/2022 Do [...] and heating? Not hard at all 10/31/2022 [facility] - Occupational [...] Appointment Department of Radiation Oncology in [address] [address] [place]sie Dewey M.D. [address] [place] [phone] 10/03/2023 1:45 PM CDT Appointment Department of Radiation Oncology in [address] [address] Elsie Dewey M.D. [address] [place] [phone] 10/04/2023 1:45 PM CDT Appointment Department of Radiation Oncology in [address] [address] [place]sie Dewey M.D. [address] [place] [phone] 10/07/2023 1:45 PM CDT Appointment Department of Radiation Oncology in [address] [address] [place]sie Dewey M.D. [address] [place] [phone] 10/08/2023 1:45 PM CDT Appointment Department of Radiation Oncology in [place], [place] [address] [place] [address] Elsie Dewey M.D. [address] [place] [phone] 10/08/2023 2:00 PM CDT Appointment Department of Radiation Oncology in [address] [address] [place] Dewey M.D. [address] [place] [phone] 10/09/2023 1:45 PM CDT Appointment Department of Radiation Oncology in [address] [address] [place]sie Dewey M.D. [address] [place] [phone] 10/10/2023 1:45 PM CDT Appointment Department of Radiation Oncology in [address] [address] [place] Dewey M.D. [address] [place] [phone] 10/11/2023 1:45 PM CDT Appointment Department of Radiation Oncology in [place], [place] [address] [place] [address] [place] Dewey M.D. [address] [place] [address] 10/14/2023 1:45 PM CDT Appointment Department of Radiation Oncology in [address] [address] [place]sie Dewey M.D. [address] [place] [address] 10/15/2023 1:45 PM CDT Appointment Department of Radiation Oncology in [place], [place] [address] [place] [address] [place]sie Dewey M.D. [address] [place] [phone] 10/15/2023 2:15 PM CDT Appointment Department of Radiation Oncology in [address] [address] [place] Dewey M.D. [address] [place] [address] 10/16/2023 1:45 PM CDT Appointment Department of Radiation Oncology in [address] [address] [place]sie Dewey M.D. [address] [place] [address] 10/17/2023 1:45 PM CDT Appointment Department of Radiation Oncology in [address] [address] [place] Dewey M.D. [address] [place] [address] 10/18/2023 1:45 PM CDT Appointment Department of Radiation Oncology in [address] [address] [place] Dewey M.D. [address] [place] [address] 10/21/2023 1:45 PM CDT Appointment Department of Radiation Oncology in [place], [place] [address] [place] [address] Elsie Dewey M.D. [address] [place] [address] 10/22/2023 1:45 PM CDT Appointment Department of Radiation Oncology in [place], [place] [address] [place] [address] [place]sie Dewey M.D. [address] [place] [phone] 10/22/2023 2:00 PM CDT Appointment Department of Radiation Oncology in [place], [place] [address] [place] [address] [place] Dewey M.D. [address] [place] [phone] 10/23/2023 1:45 PM CDT Appointment Department of Radiation Oncology in [address] [address] [place] Dewey M.D. 200 [place] [address] 10/24/2023 1:45 PM CDT Appointment Department of Radiation Oncology in [address] [address] [place] Dewey M.D. [address] [place] [phone] 10/25/2023 1:45 PM CDT Appointment Department of Radiation Oncology in [place], [place] [address] [place] [phone] [place] Dewey M.D. [address] [place] [address] 10/28/2023 1:45 PM CDT Appointment Department of Radiation Oncology in [place], [place] [address] [place] [address] [place] Dewey M.D. [address] [place] [address] 10/29/2023 1:45 PM CDT Appointment Department of Radiation Oncology in [address] [address] [place] Dewey M.D. [address] [place] [phone] 10/29/2023 2:00 PM CDT Appointment Department of Radiation Oncology in [address] [address] [place] Dewey M.D. [address] [place] [address] 10/30/2023 1:45 PM CDT Appointment Department of Radiation Oncology in [place], [place] [address] [place] [address] [place]sie Dewey M.D. [address] [place] [address] 10/31/2023 1:45 PM CDT Appointment Department of Radiation Oncology in [address] [address] [place] Dewey M.D. [address] [place] [address] 11/01/2023 1:45 PM CDT Appointment Department of Radiation Oncology in [place], [place] [address] [place] [address] [place]sie Dewey M.D. [address] [place] [phone] documented as of this encounter Visit Diagnoses Not on filedocumented in this encounter
--- OUTSIDE RECORDS SUMMARY | 2023-10-02 11:45 | XMS_ITS | Encounter Summary ---
Author Name Unknown Organization [facility] Address [address] [place] [address] Care Team Providers Care Juice Mixer Name Role Phone Unavailable Primary Care Provider Unavailabl e Reason for Visit * Reason Onset Date Comments Results 09/10/2023 Encounter Details Date Type Department Care Team (Late st Contact Info) Description 09/10/2023 Clinical Communication Department of Radiation Oncology in [place], [place] [address] [place] [address] Albertina Stiles APRN, C.N.P., D.N.P. [address] [place] [phone] Results Social History Tobacco Use Types Packs/Day [...] declined 10/31/2022 How often do you attend holiness or cheondoism serv ices? Never 10/31/2022 Do you belong to any clubs o r organizations such as holiness groups, unions, fralink bird or athletic groups, or school groups? No [...] and heating? Not hard at all 10/31/2022 [facility] - Occupational [...] at the time of her visit yesterday, 09/08, with Dr. Dewey. Brain MRI demonstrated no [...] CDT Appointment Department of Radiation Oncology in [address] [address] [place] Dewey M.D. [address] [place] [phone] 10/03/2023 1:45 PM CDT Appointment Department of Radiation Oncology in [address] [address] [place]sie Dewey M.D. [address] [place] [phone] 10/04/2023 1:45 PM CDT Appointment Department of Radiation Oncology in [address] [address] [place]sie Dewey M.D. [address] [place] [phone] 10/07/2023 1:45 PM CDT Appointment Department of Radiation Oncology in [address] [address] [place]sie Dewey M.D. [address] [place] [address] 10/08/2023 1:45 PM CDT Appointment Department of Radiation Oncology in [place], [place] [address] [place] [address] [place]sie Dewey M.D. [address] [place] [phone] 10/08/2023 2:00 PM CDT Appointment Department of Radiation Oncology in [address] [address] Elsie Dewey M.D. [address] [place] [address] 10/09/2023 1:45 PM CDT Appointment Department of Radiation Oncology in [address] [address] Elsie Dewey M.D. [address] [place] [address] 10/10/2023 1:45 PM CDT Appointment Department of Radiation Oncology in [address] [address] [place]sie Dewey M.D. [address] [place] [phone] 10/11/2023 1:45 PM CDT Appointment Department of Radiation Oncology in [address] [address] [place] Dewey M.D. [address] [place] [phone] 10/14/2023 1:45 PM CDT Appointment Department of Radiation Oncology in [address] [address] [place]sie Dewey M.D. [address] [place] [address] 10/15/2023 1:45 PM CDT Appointment Department of Radiation Oncology in [place], [place] [address] [place] [address] Elsie Dewey M.D. [address] [place] [address] 10/15/2023 2:15 PM CDT Appointment Department of Radiation Oncology in [place], [place] [address] [place] [address] [place]sie Dewey M.D. [address] [place] [address] 10/16/2023 1:45 PM CDT Appointment Department of Radiation Oncology in [place], [place] [address] [place] [address] Elsie Dewey M.D. 200 [place] [address] 10/17/2023 1:45 PM CDT Appointment Department of Radiation Oncology in [place], [place] [address] [place] [address] Elsie Dewey M.D. [address] [place] [address] 10/18/2023 1:45 PM CDT Appointment Department of Radiation Oncology in [place], [place] [address] [place] [address] Elsie Dewey M.D. [address] [place] [address] 10/21/2023 1:45 PM CDT Appointment Department of Radiation Oncology in [place], [place] [address] [place] [address] Elsie Dewey M.D. [address] [place] [address] 10/22/2023 1:45 PM CDT Appointment Department of Radiation Oncology in [place], [place] [address] [place] [address] Elsie Dewey M.D. [address] [place] [phone] 10/22/2023 2:00 PM CDT Appointment Department of Radiation Oncology in [address] [address] Elsie Dewey M.D. [address] [place] [address] 10/23/2023 1:45 PM CDT Appointment Department of Radiation Oncology in [place], [place] [address] [place] [address] Elsie Dewey M.D. [address] [place] [phone] 10/24/2023 1:45 PM CDT Appointment Department of Radiation Oncology in [place], [place] [address] [place] [address] Elsie Dewey M.D. [address] [place] [phone] 10/25/2023 1:45 PM CDT Appointment Department of Radiation Oncology in [address] [address] Elsie Dewey M.D. [address] [place] [address] 10/28/2023 1:45 PM CDT Appointment Department of Radiation Oncology in [place], [place] [address] [place] [address] Elsie Dewey M.D. [address] [place] [address] 10/29/2023 1:45 PM CDT Appointment Department of Radiation Oncology in [address] [address] Elsie Dewey M.D. [address] [place] [address] 10/29/2023 2:00 PM CDT Appointment Department of Radiation Oncology in [address] [address] Elsie Dewey M.D. [address] [place] [phone] 10/30/2023 1:45 PM CDT Appointment Department of Radiation Oncology in [address] [address] Elsie Dewey M.D. [address] [place] [address] 10/31/2023 1:45 PM CDT Appointment Department of Radiation Oncology in [address] [address] Elsie Dewey M.D. [address] [place] [address] 11/01/2023 1:45 PM CDT Appointment Department of Radiation Oncology in [address] [address] Elsie Dewey M.D. [address] [place] [phone] documented as of this encounter Visit Diagnoses Not on filedocumented in this encounter
--- OUTSIDE RECORDS SUMMARY | 2023-10-02 11:45 | XMS_ITS | Encounter Summary ---
Author Name Unknown Organization [facility] Address [address] [place] [address] Care Team Providers Care Plumbing Engineering Draftsperson Name Role Phone Unavailable Primary Care Provider Unavailabl e Encounter Details Date Type Department Care Team (Late st Contact Info) Description 09/23/2023 Abstract [place], [place] [address] [place] [phone] Provider, Historical Social History Tobacco Use Types Packs/Day Years [...] declined 10/31/2022 How often do you attend samaritan or orthodoxy serv ices? Never 10/31/2022 Do you belong to any clubs o r organizations such as samaritan groups, unions, fraternal or athletic groups, or [...] heating? Not hard at all 10/31/2022 [facility] Occupat ional Health - Occupational Stress [...] CDT Appointment Department of Radiation Oncology in [place], [place] [address] [place] [address] Elsie Dewey M.D. 200 [place] [address] 10/03/2023 1:45 PM CDT Appointment Department of Radiation Oncology in [place], [place] [address] [place] [address] Elsie Dewey M.D. [address] [place] [address] 10/04/2023 1:45 PM CDT Appointment Department of Radiation Oncology in [place], [place] [address] [place] [address] Elsie Dewey M.D. [address] [place] [address] 10/07/2023 1:45 PM CDT Appointment Department of Radiation Oncology in [address] [address] Elsie Dewey M.D. [address] [place] [phone] 10/08/2023 1:45 PM CDT Appointment Department of Radiation Oncology in [address] [address] Elsie Dewey M.D. [address] [place] [address] 10/08/2023 2:00 PM CDT Appointment Department of Radiation Oncology in [address] [address] Elsie Dewey M.D. [address] [place] [address] 10/09/2023 1:45 PM CDT Appointment Department of Radiation Oncology in [address] [address] Elsie Dweey M.D. [address] [place] [address] 10/10/2023 1:45 PM CDT Appointment Department of Radiation Oncology in [place], [place] [address] [place] [address] Elsie Dewey M.D. [address] [place] [address] 10/11/2023 1:45 PM CDT Appointment Department of Radiation Oncology in [address] [address] Elsie Dewey M.D. [address] [place] [address] 10/14/2023 1:45 PM CDT Appointment Department of Radiation Oncology in [address] [address] Elsie Dewey M.D. [address] [place] [address] 10/15/2023 1:45 PM CDT Appointment Department of Radiation Oncology in [address] [address] Elsie Dewey M.D. [address] [place] [address] 10/15/2023 2:15 PM CDT Appointment Department of Radiation Oncology in [address] [address] Elsie Dewey M.D. [address] [place] [address] 10/16/2023 1:45 PM CDT Appointment Department of Radiation Oncology in [address] [address] Elsie Dewey M.D. [address] [place] [address] 10/17/2023 1:45 PM CDT Appointment Department of Radiation Oncology in [place], [place] [address] [place] [address] Elsie Dewey M.D. 200 [place] [address] 10/18/2023 1:45 PM CDT Appointment Department of Radiation Oncology in [place], [place] [address] [place] [address] Elsie Dewey M.D. 200 [place] [address] 10/21/2023 1:45 PM CDT Appointment Department of Radiation Oncology in [place], [place] [address] [place] [address] Elsie Dewey M.D. 200 [place] [address] 10/22/2023 1:45 PM CDT Appointment Department of Radiation Oncology in [place], [place] [address] [place] [address] Elsie Dewey M.D. 200 [place] [address] 10/22/2023 2:00 PM CDT Appointment Department of Radiation Oncology in [place], [place] [address] [place] [phone] Elsie Dewey M.D. [address] [place] [address] 10/23/2023 1:45 PM CDT Appointment Department of Radiation Oncology in [place] [address] [place] [address] Elsie Dewey M.D. [address] [place] [phone] 10/24/2023 1:45 PM CDT Appointment Department of Radiation Oncology in [place], [place] [address] [place] [address] Elsie Dewey M.D. [address] [place] [address] 10/25/2023 1:45 PM CDT Appointment Department of Radiation Oncology in [address] [address] Elsie Dewey M.D. [address] [place] [address] 10/28/2023 1:45 PM CDT Appointment Department of Radiation Oncology in [place], [place] [address] [place] [address] Elsie Dewey M.D. [address] [place] [address] 10/29/2023 1:45 PM CDT Appointment Department of Radiation Oncology in [place], [place] [address] [place] [address] Elsie Dewey M.D. [address] [place] [address] 10/29/2023 2:00 PM CDT Appointment Department of Radiation Oncology in [address] [address] Elsie Dewey M.D. [address] [place] [address] 10/30/2023 1:45 PM CDT Appointment Department of Radiation Oncology in [place], [place] [address] [place] [address] Elsie Dewey M.D. [address] [place] [address] 10/31/2023 1:45 PM CDT Appointment Department of Radiation Oncology in [place], [place] [address] [place] [address] Elsie Dewey M.D. [address] [place] [address] 11/01/2023 1:45 PM CDT Appointment Department of Radiation Oncology in [place], [place] [address] [place] [address] Elsie Dewey M.D. [address] [place] [address] documented as of this encounter Visit Diagnoses Not on filedocumented in this encounter
--- OUTSIDE RECORDS SUMMARY | 2023-10-02 11:45 | XMS_ITS | Encounter Summary ---
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 [address] [place] [address] [facility] Region Referral ID Status Reason Start Date Expiration Date Visits Re quested Visits Authorized [id number] Closed 09/09/2023 09/08/2024 1 1 Reason for Visit * Radiation Therapy (Routine) - Closed Specialty Diagnoses / Procedures Referred By Ervin frye Referred To Contact Diagnoses Malignant Neoplasm Of Lung Right (HCC) Procedures Initial Rad Onc Treatment Planning CT Simulation Elsie Dewey M.D. [address] [place] [address] [facility] Region Referral ID Status Reason Start Date Expiration Date Visits Re quested Visits Authorized [id number] Closed 09/09/2023 09/08/2024 1 1 Encounter Details Date Type Department Care Team (Latest Contact Info) Description 09/11/2023 12:30 PM CDT - 09/11/2023 3:09 PM CDT Hospital Encounter Department of Radiation Oncology in [place], [place] [address] [place] [phone] Elsie Dewey M.D. [address] [place] [address] Malignant Neoplasm Of Lung Right (HCC) Social [...] declined 10/31/2022 How often do you attend hinduism or jew serv ices? Never 10/31/2022 Do you belong to any clubs o r organizations such as hinduism groups, unions, fraternal or athletic groups, or [...] and heating? Not hard at all 10/31/2022 [facility] of Occupat ional Health - Occupational Stress [...] TABLETS ALL OTHER DAYS OR DIRECTED 09/17/2022 Advair Diskus 250-50 mcg/act diskus inhaler 1 puff 2 (two) times a day. 10/10/2022 09/13/2023 ipratropium-albuterol (COMBIVENT RESPIMAT) 20-100 mcg/actuation inhaler Inhale 1-2 puffs 4 (four) times a day as needed. shortness of breath, wheezing 11/25/2013 09/13/2023 ipratropium-albuteroL (Combivent Respimat) 20-100 mcg/actuation inhaler Inhale 1 puff as needed. 05/28/2022 09/13/2023 documented as of this encounter Procedure Notes * Leonel Ese J, RTT - 09/11/2023 1:00 PM CDTAssociated Order(s): [...] planning. CT images were transferred to the GoGoPin treatment planning system, after a reference isocenter was determined and marked. Segmentation and treatment planning will take place prior to treatment delivery. Patient set up and imaging was appropriate and completed without incident. Demonstrator Sewing Techniques use:No Associated attestation - Elsie Dewey M.D. - 09/11/2023 3:09 PM CDT I was present during all critical and eubanks portions of the procedure(s) and immediately available [facility] services the entire duration. See note for details. documented in this encounter Plan of Treatment Upcoming Encounters Date Type Department Care Team (Late st Contact Info) Description 10/02/2023 1:00 PM CDT Appointment Department of Radiation Oncology in [address] [address] Elsie Dewey M.D. [address] [place] [phone] 10/03/2023 1:45 PM CDT Appointment Department of Radiation Oncology in [place], [place] [address] [place] [address] Elsie Dewey M.D. [address] [place] [address] 10/04/2023 1:45 PM CDT Appointment Department of Radiation Oncology in [address] [address] Elsie Dewey M.D. [address] [place] [address] 10/07/2023 1:45 PM CDT Appointment Department of Radiation Oncology in [address] [address] Elsie Dewey M.D. [address] [place] [address] 10/08/2023 1:45 PM CDT Appointment Department of Radiation Oncology in [place], [place] [address] [place] [address] Elsie Dewey M.D. [address] [place] [address] 10/08/2023 2:00 PM CDT Appointment Department of Radiation Oncology in [address] [address] Elsie Dewey M.D. [address] [place] [address] 10/09/2023 1:45 PM CDT Appointment Department of Radiation Oncology in [place], [place] [address] [place] [phone] Elsie Dewey M.D. [address] [place] [address] 10/10/2023 1:45 PM CDT Appointment Department of Radiation Oncology in [place], [place] [address] [place] [address] Elsie Dewey M.D. [address] [place] [address] 10/11/2023 1:45 PM CDT Appointment Department of Radiation Oncology in [address] [address] Elsie Dewey M.D. [address] [place] [address] 10/14/2023 1:45 PM CDT Appointment Department of Radiation Oncology in [place], [place] [address] [place] [address] Elsie Dewey M.D. [address] [place] [address] 10/15/2023 1:45 PM CDT Appointment Department of Radiation Oncology in [place], [place] [address] [place] [address] Elsie Dewey M.D. [address] [place] [address] 10/15/2023 2:15 PM CDT Appointment Department of Radiation Oncology in [address] [address] Elsie Dewey M.D. [address] [place] [address] 10/16/2023 1:45 PM CDT Appointment Department of Radiation Oncology in [place], [place] [address] [place] [address] Elsie Dewey M.D. [address] [place] [address] 10/17/2023 1:45 PM CDT Appointment Department of Radiation Oncology in [place], [place] [address] [place] [address] Elsie Dewey M.D. [address] [place] [address] 10/18/2023 1:45 PM CDT Appointment Department of Radiation Oncology in [place], [place] [address] [place] [phone] Elsie Dewey M.D. [address] [place] [address] 10/21/2023 1:45 PM CDT Appointment Department of Radiation Oncology in [place], [place] [address] [place] [address] Elsie Dewey M.D. [address] [place] [address] 10/22/2023 1:45 PM CDT Appointment Department of Radiation Oncology in [place], [place] [address] [place] [address] Elsie Dewey M.D. [address] [place] [address] 10/22/2023 2:00 PM CDT Appointment Department of Radiation Oncology in [place], [place] [address] [place] [phone] Elsie Dewey M.D. [address] [place] [address] 10/23/2023 1:45 PM CDT Appointment Department of Radiation Oncology in [place], [place] [address] [place] [address] Elsie Dewey M.D. [address] [place] [address] 10/24/2023 1:45 PM CDT Appointment Department of Radiation Oncology in [address] [address] Elsie Dewey M.D. [address] [place] [address] 10/25/2023 1:45 PM CDT Appointment Department of Radiation Oncology in [address] [address] Elsie Dewey M.D. [address] [place] [address] 10/28/2023 1:45 PM CDT Appointment Department of Radiation Oncology in [address] [address] Elsie Dewey M.D. [address] [place] [address] 10/29/2023 1:45 PM CDT Appointment Department of Radiation Oncology in [address] [address] Elsie Dewey M.D. [address] [place] [address] 10/29/2023 2:00 PM CDT Appointment Department of Radiation Oncology in [place], [place] [address] [place] [address] Elsie Dewey M.D. [address] [place] [address] 10/30/2023 1:45 PM CDT Appointment Department of Radiation Oncology in [place], [place] [address] [place] [address] Elsie Dewey M.D. [address] [place] [address] 10/31/2023 1:45 PM CDT Appointment Department of Radiation Oncology in [place], [place] [address] [place] [address] Elsie Dewey M.D. [address] [place] [address] 11/01/2023 1:45 PM CDT Appointment Department of Radiation Oncology in [place], [place] [address] [place] [phone] Elsie Dewey M.D. [address] [place] [phone] documented as of this encounter Procedures Procedure [...]
--- OUTSIDE RECORDS SUMMARY | 2023-10-02 11:46 | XMS_ITS | Encounter Summary ---
Author Name Unknown Organization [facility] Address [address] [place] [address] Care Team Providers Care Supervisor Sleeping Bag Department Name Role Phone Unavailable Primary Care Provider [...] How often do you attend bahai or quaker serv ices? Never 10/31/2022 Do you belong [...] and heating? Not hard at all 10/31/[address] [facility] of Occupat ional Health - Occupational Stress [...] CDT Appointment Department of Radiation Oncology in [place], [place] [address] [place] [address] Elsie Dewey M.D. [address] [place] [phone] 10/03/2023 1:45 PM CDT Appointment Department of Radiation Oncology in [place], [place] [address] [place] [address] Elsie Dewey M.D. [address] [place] [address] 10/04/2023 1:45 PM CDT Appointment Department of Radiation Oncology in [address] [address] Elsie Dewey M.D. [address] [place] [address] 10/07/2023 1:45 PM CDT Appointment Department of Radiation Oncology in [address] [address] Elsie Dewey M.D. [address] [place] [address] 10/08/2023 1:45 PM CDT Appointment Department of Radiation Oncology in [address] [address] Elsie Dewey M.D. [address] [place] [address] 10/08/2023 2:00 PM CDT Appointment Department of Radiation Oncology in [address] [address] Elsie Dewey M.D. [address] [place] [address] 10/09/2023 1:45 PM CDT Appointment Department of Radiation Oncology in [address] [address] Elsie Dewey M.D. [address] [place] [address] 10/10/2023 1:45 PM CDT Appointment Department of Radiation Oncology in [address] [address] Elsie Dewey M.D. [address] [place] [address] 10/11/2023 1:45 PM CDT Appointment Department of Radiation Oncology in [place], [place] [address] [place] [address] Elsie Dewey M.D. [address] [place] [address] 10/14/2023 1:45 PM CDT Appointment Department of Radiation Oncology in [place], [place] [address] [place] [address] Elsie Dewey M.D. [address] [place] [address] 10/15/2023 1:45 PM CDT Appointment Department of Radiation Oncology in [address] [address] Elsie Dewey M.D. [address] [place] [address] 10/15/2023 2:15 PM CDT Appointment Department of Radiation Oncology in [place], [place] [address] [place] [phone] Elsie Dewey M.D. [address] [place] [address] 10/16/2023 1:45 PM CDT Appointment Department of Radiation Oncology in [address] [address] Elsie Dewey M.D. [address] [place] [address] 10/17/2023 1:45 PM CDT Appointment Department of Radiation Oncology in [place], [place] [address] [place] [address] Elsie Dewey M.D. [address] [place] [address] 10/18/2023 1:45 PM CDT Appointment Department of Radiation Oncology in [address] [address] Elsie Dewey M.D. [address] [place] [address] 10/21/2023 1:45 PM CDT Appointment Department of Radiation Oncology in [address] [address] Elsie Dewey M.D. [address] [place] [address] 10/22/2023 1:45 PM CDT Appointment Department of Radiation Oncology in [address] [address] Elsie Dewey M.D. [address] [place] [address] 10/22/2023 2:00 PM CDT Appointment Department of Radiation Oncology in [address] [address] Elsie Dewey M.D. [address] [place] [address] 10/23/2023 1:45 PM CDT Appointment Department of Radiation Oncology in [address] [address] Elsie Dewey M.D. [address] [place] [address] 10/24/2023 1:45 PM CDT Appointment Department of Radiation Oncology in [place], [place] [address] [place] [address] Elsie Dewey M.D. [address] [place] [address] 10/25/2023 1:45 PM CDT Appointment Department of Radiation Oncology in [place], [place] [address] [place] [phone] Elsie Dewey M.D. [address] [place] [address] 10/28/2023 1:45 PM CDT Appointment Department of Radiation Oncology in [place], [place] [address] [place] [address] Elsie Dewey M.D. [address] [place] [address] 10/29/2023 1:45 PM CDT Appointment Department of Radiation Oncology in [place], [place] [address] [place] [phone] Elsie Dewey M.D. [address] [place] [address] 10/29/2023 2:00 PM CDT Appointment Department of Radiation Oncology in [place], [place] [address] [place] [address] Elsie Dewey M.D. [address] [place] [address] 10/30/2023 1:45 PM CDT Appointment Department of Radiation Oncology in [place], [place] [address] [place] [address] Elsie Dewey M.D. [address] [place] [address] 10/31/2023 1:45 PM CDT Appointment Department of Radiation Oncology in [place], [place] [address] [place] [address] Elsie Dewey M.D. [address] [place] [address] 11/01/2023 1:45 PM CDT Appointment Department of Radiation Oncology in [place], [place] [address] [place] [address] Elsie Dewey M.D. [address] [place] [address] documented as of this encounter Procedures Procedure [...]
--- OUTSIDE RECORDS SUMMARY | 2023-10-02 11:46 | XMS_ITS | Encounter Summary ---
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 [address] [place] [address] Social History Tobacco Use Types Packs/Day Years [...] declined 10/31/2022 How often do you attend jehovah's witness or hoahaoism serv ices? Never 10/31/2022 Do you belong to any clubs o r organizations such as jehovah's witness groups, unions, fraternal or athletic groups, or [...] and heating? Not hard at all 10/31/2022 [facility] of Occupat ional [facility] - Occupational Stress Questionnaire Answer Date Recorded [...] Appointment Department of Radiation Oncology in [address] [address] Elsie Dewey M.D. [address] [place] [address] 10/03/2023 1:45 PM CDT Appointment Department of Radiation Oncology in [address] [address] Elsie Dewey M.D. [address] [place] [address] 10/04/2023 1:45 PM CDT Appointment Department of Radiation Oncology in [address] [address] Elsie Dewey M.D. [address] [place] [address] 10/07/2023 1:45 PM CDT Appointment Department of Radiation Oncology in [address] [address] Elsie Dewey M.D. [address] [place] [address] 10/08/2023 1:45 PM CDT Appointment Department of Radiation Oncology in [address] [address] Elsie Dewey M.D. [address] [place] [address] 10/08/2023 2:00 PM CDT Appointment Department of Radiation Oncology in [address] [address] Elsie Dewey M.D. [address] [place] [address] 10/09/2023 1:45 PM CDT Appointment Department of Radiation Oncology in [address] [address] Elsie Dewey M.D. [address] [place] [address] 10/10/2023 1:45 PM CDT Appointment Department of Radiation Oncology in [address] [address] Elsie Dewey M.D. [address] [place] [address] 10/11/2023 1:45 PM CDT Appointment Department of Radiation Oncology in [address] [address] Elsie Dewey M.D. [address] [place] [address] 10/14/2023 1:45 PM CDT Appointment Department of Radiation Oncology in [address] [address] Elsie Dewey M.D. [address] [place] [address] 10/15/2023 1:45 PM CDT Appointment Department of Radiation Oncology in [address] [address] Elsie Dewey M.D. [address] [place] [address] 10/15/2023 2:15 PM CDT Appointment Department of Radiation Oncology in [place], [place] [address] [place] [address] Elsie Dewey M.D. [address] [place] [address] 10/16/2023 1:45 PM CDT Appointment Department of Radiation Oncology in [place], [place] [address] [place] [address] Elsie Dewey M.D. [address] [place] [address] 10/17/2023 1:45 PM CDT Appointment Department of Radiation Oncology in [place], [place] [address] [place] [address] Elsie Dewey M.D. [address] [place] [address] 10/18/2023 1:45 PM CDT Appointment Department of Radiation Oncology in [address] [address] Elsie Dewey M.D. [address] [place] [address] 10/21/2023 1:45 PM CDT Appointment Department of Radiation Oncology in [address] [address] Elsie Dewey M.D. [address] [place] [address] 10/22/2023 1:45 PM CDT Appointment Department of Radiation Oncology in [address] [place] [address] Elsie Dewey M.D. [address] [place] [address] 10/22/2023 2:00 PM CDT Appointment Department of Radiation Oncology in [place], [place] [address] [place] [address] Elsie Dewey M.D. [address] [place] [address] 10/23/2023 1:45 PM CDT Appointment Department of Radiation Oncology in [address] [address] Elsie Dewey M.D. [address] [place] [address] 10/24/2023 1:45 PM CDT Appointment Department of Radiation Oncology in [place], [place] [address] [place] [address] Elsie Dewey M.D. [address] [place] [address] 10/25/2023 1:45 PM CDT Appointment Department of Radiation Oncology in [place], [place] [address] [place] [address] Elsie Dewey M.D. [address] [place] [address] 10/28/2023 1:45 PM CDT Appointment Department of Radiation Oncology in [address] [address] Elsie Dewey M.D. [address] [place] [address] 10/29/2023 1:45 PM CDT Appointment Department of Radiation Oncology in [place], [place] [address] [place] [address] Elsie Dewey M.D. [address] [place] [address] 10/29/2023 2:00 PM CDT Appointment Department of Radiation Oncology in [address] [address] Elsie Dewey M.D. [address] [place] [address] 10/30/2023 1:45 PM CDT Appointment Department of Radiation Oncology in [address] [address] Elsie Dewey M.D. [address] [place] [address] 10/31/2023 1:45 PM CDT Appointment Department of Radiation Oncology in [address] [address] Elsie Dewey M.D. [address] [place] [address] 11/01/2023 1:45 PM CDT Appointment Department of Radiation Oncology in [address] [address] Elsie Dewey M.D. [address] [place] [phone] documented as of this encounter Visit Diagnoses Not on filedocumented in this encounter
--- OUTSIDE RECORDS SUMMARY | 2023-10-02 11:46 | XMS_ITS | Encounter Summary ---
Author Name Unknown Organization [facility] [place] Address [address] [place] [id number] Care Team Providers Care Project Geophysicist Name Role Phone Unavailable Primary Care Provider Unavailabl e Encounter Details Date Type Department Care Team (Late st Contact Info) Description 09/06/2023 7:00 AM CDT Lab RST RO LMP [address] [place] [phone] Nilo Pickett APRN, C.N.P., D.N.P. [address] [place] [phone] Malignant Neoplasm Of Lung Left (HCC); Nodules Pulmonary Multiple; Lymphadenopathy Mediastinum; Abnormal Positron Emission Tomography Scan Social History Tobacco Use Types Packs/Day Years [...] declined 10/31/2022 How often do you attend shinto or congregation serv ices? Never 10/31/2022 Do you belong to any clubs o r organizations such as shinto groups, unions, fraternal or athletic groups, or [...] and heating? Not hard at all 10/31/2022 [facility] - Occupational [...] CDT Appointment Department of Radiation Oncology in [place], [place] [address] [place] [address] Elsie Dewey M.D. 200 [place] [address] 10/03/2023 1:45 PM CDT Appointment Department of Radiation Oncology in [address] [phone] Elsie Dewey M.D. [address] [place] [phone] 10/04/2023 1:45 PM CDT Appointment Department of Radiation Oncology in [address] [phone] Elsie Dewey M.D. [address] [place] [phone] 10/07/2023 1:45 PM CDT Appointment Department of Radiation Oncology in [address] [phone] Elsie Dewey M.D. [address] [place] [phone] 10/08/2023 1:45 PM CDT Appointment Department of Radiation Oncology in [address] [phone] Elsie Dewey M.D. [address] [place] [phone] 10/08/2023 2:00 PM CDT Appointment Department of Radiation Oncology in [address] [address] Elsie Dewey M.D. [address] [place] [phone] 10/09/2023 1:45 PM CDT Appointment Department of Radiation Oncology in [address] [address] Elsie Dewey M.D. [address] [place] [phone] 10/10/2023 1:45 PM CDT Appointment Department of Radiation Oncology in [place], [place] [address] [place] [phone] Elsie Dewey M.D. [address] [place] [phone] 10/11/2023 1:45 PM CDT Appointment Department of Radiation Oncology in [address] [address] Elsie Dewey M.D. [address] [place] [phone] 10/14/2023 1:45 PM CDT Appointment Department of Radiation Oncology in [address] [address] Elsie Dewey M.D. [address] [place] [address] 10/15/2023 1:45 PM CDT Appointment Department of Radiation Oncology in [address] [phone] Elsie Dewey M.D. [address] [place] [address] 10/15/2023 2:15 PM CDT Appointment Department of Radiation Oncology in [address] [phone] Elsie Dewey M.D. [address] [place] [address] 10/16/2023 1:45 PM CDT Appointment Department of Radiation Oncology in [place], [place] [address] [place] [phone] Elsie Dewey M.D. [address] [place] [phone] 10/17/2023 1:45 PM CDT Appointment Department of Radiation Oncology in [place], [place] [address] [place] [phone] Elsie Dewey M.D. [address] [place] [address] 10/18/2023 1:45 PM CDT Appointment Department of Radiation Oncology in [address] [address] Elsie Dewey M.D. [address] [place] [address] 10/21/2023 1:45 PM CDT Appointment Department of Radiation Oncology in [address] [address] Elsie Dewey M.D. [address] [place] [phone] 10/22/2023 1:45 PM CDT Appointment Department of Radiation Oncology in [address] [address] Elsie Dewey M.D. [address] [place] [phone] 10/22/2023 2:00 PM CDT Appointment Department of Radiation Oncology in [address] [phone] Elsie Dewey M.D. [address] [place] [phone] 10/23/2023 1:45 PM CDT Appointment Department of Radiation Oncology in [place], [place] [address] [place] [phone] Elsie Dewey M.D. [address] [place] [address] 10/24/2023 1:45 PM CDT Appointment Department of Radiation Oncology in [place], [place] [address] [place] [phone] Elsie Dewey M.D. [address] [place] [phone] 10/25/2023 1:45 PM CDT Appointment Department of Radiation Oncology in [place], [place] [address] [place] [phone] Elsie Dewey M.D. [address] [place] [phone] 10/28/2023 1:45 PM CDT Appointment Department of Radiation Oncology in [place], [place] [address] [place] [phone] Elsie Dewey M.D. [address] [place] [phone] 10/29/2023 1:45 PM CDT Appointment Department of Radiation Oncology in [place], [place] [address] [place] [phone] Elsie Dewey M.D. [address] [place] [phone] 10/29/2023 2:00 PM CDT Appointment Department of Radiation Oncology in [place], [place] [address] [place] [phone] Elsie Dewey M.D. [address] [place] [phone] 10/30/2023 1:45 PM CDT Appointment Department of Radiation Oncology in [place], [place] [address] [place] [address] Elsie Dewey M.D. [address] [place] [address] 10/31/2023 1:45 PM CDT Appointment Department of Radiation Oncology in [address] [address] Elsie Dewey M.D. [address] [place] [address] 11/01/2023 1:45 PM CDT Appointment Department of Radiation Oncology in [address] [address] Elsie Dewey M.D. [address] [place] [phone] documented as of this encounter Procedures Procedure Name Priority Date/Time Associated Diagnosis Comments [facility] Routine 09/05/2023 10:05 AM CDT Malignant Neoplasm Of Lung Left (HCC) Nodules Pulmonary Multiple Lymphadenopathy Mediastinum Abnormal Positron Emission Tomography Scan documented in this encounter Results * [facility], Next-Generation Sequencing, Tumor (09/05/2023 [...] the 2017 AMP/ASCO/CAP Joint consensus recommendation [PMID [id number]] as follows: Tier 1 - Variant with strong clinical significance; Tier 2 - Variant with potential clinical significance; Tier 3 - Variant of unknown (uncertain) clinical significance; Tier 4 - Benign or likely benign variant. Tiers 1 and 2 variants are clinically significant mutations and rearrangements. Only Tiers 1 and 2 variants are interpreted. A complete gene list is available online ([email or web address] ; test code MCSTP) 09/25/2023 6:50 PM CDT DTL Clinical Trials Clinical trials associated with Tiers 1 and 2 variants that have a status of recruiting are included in the table above. 09/25/2023 6:50 PM CDT DTL Variants of Uncertain Significance The following VARIANTS OF UNCERTAIN SIGNIFICANCE were identified: APC, c.6989C>T (p.T1972Q) (VAF: 15%) AR, c.170_172del (p.L57del) (VAF: 8.8%) ARID1A, c.472C>T (p.P158S) (VAF: 40%) BCL10, c.529C>G (p.L177V) (VAF: 21%) BCOR, c.1342G>C (p.V448L) (VAF: 19%) CBL, c.647G>A (p.S216N) (VAF: 33%) EGFR, c.1881-783C>T (VAF: 26%) EIF4A2, c.109G>T (p.D37Y) (VAF: 36%) EIF4A2, c.948G>A (p.M316I) (VAF: 38%) EPHA5, c.634C>A (p.L212I) (VAF: 32%) ETS1, c.215-13708G>A (VAF: 21%) FANCA, c.2647C>G (p.L883V) (VAF: 15%) FANCL, c.1028G>C (p.R343T) (VAF: 17%) FGF10, c.325+1116_325+1117 delinsAT (VAF: 58%) FGFR3, c.2274+3G>C (VAF: 14%) FGFR4, c.940G>A (p.E314K) (VAF: 17%) FLCN, c.652C>T (p.R218C) (VAF: 50%) GNA13, c.412G>C (p.E138Q) (VAF: 56%) VOB92DL6, c.2143G>C (p.E715Q) (VAF: 20%) IGF1R, c.3680A>T (p.M7063F) (VAF: 46%) KDR, c.3445C>A (p.J1747J) (VAF: 32%) KLHL6, c.1300A>G (p.R434G) (VAF: 59%) LRP1B, c.41168P>T (p.D0668C) (VAF: 34%) MDC1, c.3875G>A (p.P1678C) (VAF: 2.1%) MDC1, c.3774_3775delinsAT (p.W8405M) (VAF: 2.5%) MDC1, c.3698A>G (p.U5463D) (VAF: 2.5%) MDC1, c.3528_3529delinsAT (p.U5756S) (VAF: 3%) MST1, c.1637C>T (p.T546M) (VAF: 3.4%) NOTCH2, c.4238T>A (p.X1245S) (VAF: 39%) PAX8, c.1087+26T>A (VAF: 37%) YSE2N3M, c.3956G>C (p.U3840E) (VAF: 23%) PIK3R2, c.1456G>A (p.E486K) (VAF: 16%) PTCH1, c.1882C>G (p.Q628E) (VAF: 14%) PTPRD, c.3001G>A (p.B8651S) (VAF: 14%) PTPRT, c.91G>C (p.G31R) (VAF: 38%) SMARCA4, c.2810G>T (p.S937I) (VAF: 16%) TGFBR1, c.722C>T (p.S241L) (VAF: 10%) TP53, c.97-52G>A (VAF: 27%) TSC2, c.1318G>T (p.G440C) (VAF: 19%) ZBTB7A, c.657C>A (p.F219L) (VAF: 18%) ZFHX3, c.7576C>G (p.C4455V) (VAF: 19%) 09/25/2023 6:50 PM CDT DTL Specimen Cells 09/25/2023 6:50 PM CDT DTL Tissue ID [id number] D1 09/25/2023 6:50 PM CDT DTL Method Microscopic examination was performed by a pathologist to identify areas of tumor for enrichment by macrodissection. DNA and RNA were extracted from FFPE or cytology slides, and next generation sequencing using the [employer] chemistry was performed. The following variant types and molecular profiles were evaluated: tumor mutation burden (TMB) status, microsatellite instability (MSI) status, sequence variants involving exonic regions and exon/intron boundaries of 515 genes, gene amplifications in 59 genes, fusions involving any of 55 genes, and transcript variants in 3 genes. AMP/ASCO/CAP classifications and clinical trials and therapeutic information were powered by [employer] Clinical Insights - Interpret One (QCI-II). Variant nomenclature is based on build GRCh37 (hg19). For targeted gene lists, details about gene transcripts (GenBank accession numbers), specific targeted regions of each gene, and additional information on this test, see [email or web address] (Test ID MCSTP). 09/25/2023 6:50 PM CDT [...] of heterozygosity) and sequencing artifact/misalignme nt [PMID: 51411127, PMID: 46236656]. Tumor Purity: A tumor percentage of greater [...] developed and its performance characteristics determined by [facility] [place] in a manner consistent with CLIA requirements. [...] instability (MSI-H)/defective DNA mismatch repair (dMMR) [PMID: 25376739, PMID: 45802951, PMID: 54805664]. 1) KRAS c.34G>T (p.G12C) (VAF: 74%) GENE/VARIANT SUMMARY KRAS G12C ([id number]) is an activating mutation. KRAS encodes a signaling protein member of the New family [PMID:66230068, PMID:89336927, PMID:81992889]. Activating KRAS alterations, mainly through mutations at codons G12, G13 and Q61, result in oncogenic activation of downstream signaling pathways, including the Je/MEK/ERK pathway [PMID:28623010, PMID:7252037]. The KRAS G12C mutation lies within the first G box domain of the K-New protein, one of several conserved regions responsible for GTP binding and hydrolysis; disruption of this region creates a protein that is defective for GTP hydrolysis and is therefore constitutively active [PMID:4010431, PMID:7605880, PMID:28805350]. KRAS G12C has been reported as the most common KRAS mutation in non-small cell lung carcinoma (NSCLC), and has been shown to have transforming ability and lead to activation of MEK and ERK signaling; in contrast to KRAS G12D, the G12C mutation has been reported not to result in activation of Akt [PMID:65133113, PMID:74542579, PMID:93307445, PMID:44797306]. KRAS mutations have been reported in 20% of lung adenocarcinoma samples analyzed in COSMIC (October 2022). Numerous studies have reported KRAS mutations to be associated with poor survival in NSCLC patients [PMID:54812221, PMID:36737684, PMID:0760739, PMID:79185025, PMID:5495180, PMID:45229729, PMID:77789910]. THERAPEUTIC IMPLICATIONS Drug sensitivity: Sotorasib and adagrasib have been FDA-approved in patients with locally advanced or metastatic non-small cell lung carcinoma harboring a KRAS G12C mutation, as determined by an FDA-approved test, following treatment with at least one prior systemic therapy [PMID:84534702, PMID:46845794]. Drug resistance: In some cancer types, such as colorectal cancer (CRC) and non-small cell lung cancer (NSCLC), activating KRAS mutations and KRAS amplification have been associated with resistance to Egfr-targeted therapies [PMID:91880494, PMID:35162894, PMID:40913457, PMID:77409722, PMID:78766146, PMID:15956183, PMID:87967184, PMID:61267118, PMID:77028217]. FDA Approved Drugs: Sotorasib Adagrasib. 2) SHARDA c.8001_8007del (p.C4099xk*13) (VAF: 9.1%) GENE/VARIANT SUMMARY SHARDA G9966ag ([id number]) is an inactivating mutation. SHARDA encodes the serine/threonine protein kinase Ataxia telangiectasia mutated (Sharda), which is a member of the PI3K/PI4K family [PMID:86644225]. SHARDA deficiency in cells has been reported to result in progression through the cell cycle even in the presence of DNA damage, resulting in the accumulation of DNA errors and genomic instability that can lead to cancer [PMID:12365363]. The SHARDA frameshift alteration reported here is expected to truncate the Sharda protein prior to the FATC domain, which is critical to the activation of Sharda in response to DNA damage (UniProt) [PMID:73176725, PMID:39626207, PMID:10590350, PMID:67660458]. In addition, this alteration is likely to elicit nonsense-mediated decay [PMID:09225096, PMID:80032646, PMID:4486035, PMID:11225029]. Therefore, this alteration is predicted to be [...] of mutations in homologous recombination repair genes [PMID:41872030, PMID:71076830, PMID:57495119, PMID:38327841, PMID:28447687, PMID:00236564, PMID:55825865]. Preclinical studies have reported that reduced SHARDA expression or inactivating SHARDA mutations sensitized NSCLC cell line models to radiation and MEK inhibitors [PMID:48934780, PMID:35610300]. SHARDA inactivation has also been associated with increased sensitivity to the topoisomerase-2 inhibitor etoposide, the PARP inhibitor olaparib, and the Atr inhibitor berzosertib in a study of preclinical models of lung adenocarcinoma; however, no effects on cisplatin sensitivity were reported [PMID:23774661]. Drug resistance: None. FDA Approved Drugs: None. 3) CDK4 amplification GENE/VARIANT SUMMARY CDK4 amplification is an activating alteration. CDK4 encodes cyclin-dependent kinase 4 (Cdk4), which, along with functional homolog CDK6 and family member CDK2, regulates cell cycle G1 phase progression and the G1/S transition [PMID:05133558]. Cdk4 is activated by Cyclin D, and the resulting Cyclin D-Cdk4 complex phosphorylates the protein Rb, leading to the release of the process manager factor E2F. This process results in the progression of the cell cycle; excessive activity in this pathway may lead to overproliferation [PMID:87342122, PMID:11915166]. Amplification of CDK4, which is located at chromosome 12q13, has been correlated with Cdk4 protein expression, and has been implicated in cell cycle progression, cell proliferation, and tumor growth [PMID:59981038, PMID:33635988, PMID:25824265, PMID:9380854, PMID:25833318, PMID:83775057]. Putative high-level amplification of CDK4 has been [...] basis for their development as anti-cancer agents [PMID:18443360, PMID:44107705, PMID:87630007]. Drug resistance: A study analyzing 65 advanced NSCLC patients, who received EGFR-tyrosine kinase inhibitors (TKIs), has reported an association of CDK4/6 amplification with de maribel EGFR-TKI resistance [PMID:75494517]. Furthermore, CDK4 alterations detected in cell free DNA have been retrospectively associated with poor response to osimertinib in a cohort of 41 NSCLC cases, while alterations in CDK4 or CDK6 detected in cell free DNA have been retrospectively associated with poor response to Egfr TKIs in a cohort of 64 NSCLC cases [PMID:54362228]. FDA Approved Drugs: None. 4) CDKN2A c.189del (p.L64fs*82) (VAF: 65%) GENE/VARIANT SUMMARY CDKN2A L64fs*82 (NM_000077) is an inactivating mutation. CDKN2A is a tumor suppressor gene that encodes the proteins b29EKL7k and p14ARF [PMID:3008433, PMID:6282362, PMID:71533757]. Deletions or mutations resulting in loss of function lead to dysregulation of the b33PEW3k/Cdk4/Cycli n/Rb and/or the Mdm2/p53 pathways and altered regulation of the cell cycle [PMID:6522809, PMID:1097403, PMID:49533913]. This frameshift alteration within CDKN2A exon 2 is expected to truncate the z94GAJ5g protein within the ankyrin repeat region (UniProt). All four ankyrin repeats, which are involved in binding to eubanks targets such as Cdk4, have been suggested to be important for x34PKQ3c activity [PMID:40486508, PMID:7737449, PMID:8018132]. This alteration also alters the p14ARF transcript, potentially resulting in a chimeric transcript with the g97ZYG9o reading frame (IGV). Older studies examining similar frameshift mutations within exon 2 of CDKN2A reported that these alterations are likely inactivating; however, several studies have suggested that p14ARF exon 2 truncations or frameshift chimeric proteins retain p14ARF function, but not y90RXP4w function [PMID:62329718, PMID:74596989, PMID:22546066, PMID:85937433, PMID:46289839, PMID:38108684]. Therefore, while this alteration may result in sensitivity to Cdk4/6 inhibitors, Mdm2 inhibitors may not be relevant. CDKN2A mutations have been reported in 6% of lung adenocarcinoma samples analyzed in COSMIC (October 2022). THERAPEUTIC IMPLICATIONS Drug sensitivity: There are currently no drugs that directly target inactivating mutations or loss of CDKN2A. Because t82UDJ7q is known to inhibit Cdk4, tumors with CDKN2A alterations may be sensitive to Cdk4/6 inhibitors [PMID:4670650, PMID:4746718]. p14ARF has been reported to function as a tumor suppressor through stabilization and activation of p53, via a mechanism of Mdm2 inhibition [PMID:93900913, PMID:05330310, PMID:9846527]. However, as the alteration reported here is not expected to affect p14ARF function, Mdm2 inhibitors are not expected to be relevant. Drug resistance: Inactivating CDKN2A alterations, most commonly deletion, have been significantly associated with resistance or lack of response to immune checkpoint blockade monotherapy in NSCLC patients; however, this association was not observed in patients treated with immune checkpoint blockade plus chemotherapy [PMID:86356177, PMID:48757446]. FDA Approved Drugs: None. 5) MDM2 amplification GENE/VARIANT SUMMARY MDM2 amplification is an activating alteration. MDM2 encodes the E3 ubiquitin protein ligase, Mdm2, which mediates the ubiquitination and subsequent degradation of p53, Rb1, and other proteins [PMID:58675840, PMID:07201296, PMID:97657896]. MDM2 gene amplification, which is located at chromosome 12q15, has been correlated with elevated Mdm2 protein expression, as measured by immunohistochemistr y, and frequently with the inactivation of p53 [PMID:72937545, PMID:08739776, PMID:33619717, PMID:05667064]. MDM2 functions as an oncogene, and MDM2 amplification has been shown to play a role in cell proliferation, invasion, and metastasis [PMID:68604814, PMID:8605528, PMID:38466133, PMID:71493561]. Putative high-level amplification of MDM2 has been reported in 4-13% of lung adenocarcinoma cases ([facility], October 2022). THERAPEUTIC IMPLICATIONS Drug sensitivity: Mdm2 antagonists, which disrupt the Mdm2-p53 interaction, leading to reactivation of p53, are being studied in multiple tumor types [PMID:20699681, PMID:10238090, PMID:15637018, PMID:16715579, PMID:65648948]. Several other classes of Mdm2-p53 disrupting molecules have also been found to have activity, including novel benzodiazepine derivatives [PMID:49418884]. Preclinical studies in pancreatic, breast, and colon cancer cell lines suggest that Mdm2 inhibitors may increase sensitivity of tumors to [place]-based therapies [PMID:08996832, PMID:52319190]. Drug resistance: Amplification of MDM2 or MDM4 has been associated with hyperprogression following treatment with anti-PD-1 or anti-PD-L1 inhibitors in one study. Hyperprogression was defined as a time to treatment less than two months, greater than 50% increase in tumor burden as compared with pre-immunotherapy, and greater than two-fold increase in progression pace [PMID:05047958]. FDA Approved Drugs: None. 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 MED12 encodes Med12, which is part of a Cdk8 kinase-containing Fire Control Technician complex module that contributes to both the activation and repression of process manager and has been shown to be the subunit responsible for direct physical interactions with proteins such as Sox9, beta-catenin, Gli3, and REST [PMID:33546237, PMID:15853344, PMID:21646912, PMID:08036839, PMID:80686851]. Mutation and loss of MED12 have been reported in several types of cancer; it has been suggested that inactivation of Med12 may promote cancer through the dysregulation of several signaling pathways, including TGF-beta, MEK, ERK and hormone receptors [PMID:51200808, PMID:25216745, PMID:98202687]. The MED12 nonsense alteration reported here is expected to truncate the Med12 protein prior to or within the OPA domain (UniProt) [PMID:98220243, PMID:20814764, PMID:29386354]. A preclinical study has reported that disruption of the OPA domain can be associated with changes to neurogenesis, as well as disruption of transcriptional suppression in model organisms [PMID:05507232]. In addition, C-terminal MED12 truncations have been reported as germline variants in patients with X-linked syndromic neurodevelopmental disorders [PMID:73912684]. Therefore, the alteration reported here is predicted to be inactivating. MED12 mutations have been reported in 5% of lung adenocarcinoma samples analyzed in COSMIC (October 2022). THERAPEUTIC IMPLICATIONS Drug sensitivity: There are no therapies directly targeting alterations in MED12 or Med12 expression. Preclinical studies have reported that Med12 binds to beta-catenin, providing evidence for a role for Med12 and the Fire Control Technician complex in transducing Wnt pathway signaling [PMID:21158687, PMID:75250641]. The relevance of Wnt pathway inhibitors in [...] Egfr, MEK, and Braf, as well as [place] chemotherapies [PMID:59237284, PMID:84058861]. Inactivation of MED12 was identified as a cause of crizotinib resistance in a non-small cell lung carcinoma (NSCLC) cell line. Inhibition of the TGF-beta pathway was able to restore sensitivity of NSCLC cells to crizotinib and gefitinib [PMID:71728903]. FDA Approved Drugs: None. 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 TERT encodes the telomerase reverse transcriptase protein and is activated through multiple mechanisms in several cancer types [PMID:16871794, PMID:17749319, PMID:8819588, PMID:7255250]. TERT promoter -124C>T, also known as C228T, chr5:1,295,228 C>T, or c.-124G>A, occurs prior to the transcriptional start site within the promoter of the TERT gene [PMID:11852632, PMID:92557014]. This alteration has been reported to result in increased transcriptional activity of the TERT promoter, hTERT protein expression, telomerase activity, and telomere length, as compared with wild-type TERT [PMID:76690564, PMID:76656058, PMID:89308629, PMID:18857771]. TERT mutations have been reported in 2% of lung adenocarcinoma samples analyzed in COSMIC (October 2022). THERAPEUTIC IMPLICATIONS Drug sensitivity: Therapies targeting telomeres or telomerase components have been in development, although discoveries regarding alternative roles in normal cells, as well as consequences of shortened telomeres, may limit their use [PMID:28588705, PMID:01677308, PMID:90239152, PMID:90370316, PMID:66829443]. Drug resistance: None. FDA Approved Drugs: None. 09/25/2023 6:50 PM CDT DTL Tissue (Lung, Right) 09/05/2023 10:05 AM CDT 09/11/2023 3:54 PM CDT Nilo Pickett APRN C.N.P., D.N.P. L [facility] TESTING [facility] [address] [place] [address], [facility] DTL [address] [place] [address] documented in this encounter Visit Diagnoses Diagnosis Malignant Neoplasm Of Lung Left (HCC) Nodules Pulmonary Multiple Lymphadenopathy Mediastinum Abnormal Positron Emission Tomography Scan documented in this encounter
--- OUTSIDE RECORDS SUMMARY | 2023-10-02 11:46 | XMS_ITS | Encounter Summary ---
Author Name Unknown Organization [facility] Address [address] [place] [address] Care Team Providers Care Clinical Laboratory Assistant Name Role Phone Unavailable Primary Care Provider Unavailabl e Encounter Details Date Type Department Care Team (Latest Contact Info) Description 09/05/2023 5:44 AM CDT - 09/05/2023 11:57 AM CDT Hospital Encounter [facility] MAIN OR [address] [place] [address] Phil Abreu M.D. [address] [place] [address] Malignant Neoplasm Of Lung Left (HCC); Nodules [...] declined 10/31/2022 How often do you attend mandaen or restorationist serv ices? Never 10/31/2022 Do you belong to any clubs o r organizations such as mandaen groups, unions, fraternal or athletic groups, or [...] and heating? Not hard at all 10/31/2022 [facility] [place] of Occupat ional Health - Occupational Stress [...] place to sleep or slept in a group home (including now)? No 10/31/2022 Nutrition Answer [...] Instructions After Sedation or Anesthesia for Adults ([place]) documented in this encounter Medications at Time of Discharge Medication Sig Dispensed Refills Start Date End Date albuterol 90 mcg/actuation inhaler INHALE ONE TO TWO PUFFS BY MOUTH EVERY 4 HOURS NEEDED FOR SHORTNESS OF BREATH OR WHEEZING levothyroxine (SYNTHROID, LEVOTHROID) 75 mcg tablet Take [...] I believe was due to the more [id number] degree position and the size of the [...] Appointment Department of Radiation Oncology in [address] [address] Elsie Dewey M.D. [address] [place] [phone] 10/03/2023 1:45 PM CDT Appointment Department of Radiation Oncology in [address] [address] Elsie Dewey M.D. [address] [place] [address] 10/04/2023 1:45 PM CDT Appointment Department of Radiation Oncology in [address] [address] Elsie Dewey M.D. [address] [place] [address] 10/07/2023 1:45 PM CDT Appointment Department of Radiation Oncology in [address] [address] Elsie Dewey M.D. [address] [place] [address] 10/08/2023 1:45 PM CDT Appointment Department of Radiation Oncology in [address] [address] Elsie Dewey M.D. [address] [place] [address] 10/08/2023 2:00 PM CDT Appointment Department of Radiation Oncology in [address] [address] Elsie Dewey M.D. [address] [place] [address] 10/09/2023 1:45 PM CDT Appointment Department of Radiation Oncology in [place], [place] [address] [place] [address] Elsie eDwey M.D. 200 [place] [address] 10/10/2023 1:45 PM CDT Appointment Department of Radiation Oncology in [place], [place] [address] [place] [address] Elsie Dewey M.D. 200 [place] [address] 10/11/2023 1:45 PM CDT Appointment Department of Radiation Oncology in [place], [place] [address] [place] [phone] Elsie Dewey M.D. [address] [place] [address] 10/14/2023 1:45 PM CDT Appointment Department of Radiation Oncology in [place], [place] [address] [place] [address] Elsie Dewey M.D. 200 [place] [address] 10/15/2023 1:45 PM CDT Appointment Department of Radiation Oncology in [address] [address] Elsie Dewey M.D. 200 [place] [address] 10/15/2023 2:15 PM CDT Appointment Department of Radiation Oncology in [place], [place] [address] [place] [phone] Elsie Dewey M.D. [address] [place] [address] 10/16/2023 1:45 PM CDT Appointment Department of Radiation Oncology in [address] [address] Elsie Dewey M.D. [address] [place] [address] 10/17/2023 1:45 PM CDT Appointment Department of Radiation Oncology in [address] [address] Elsie Dewey M.D. [address] [place] [address] 10/18/2023 1:45 PM CDT Appointment Department of Radiation Oncology in [address] [address] Elsie Dewey M.D. [address] [place] [address] 10/21/2023 1:45 PM CDT Appointment Department of Radiation Oncology in [address] [address] Elsie Dewey M.D. [address] [place] [address] 10/22/2023 1:45 PM CDT Appointment Department of Radiation Oncology in [address] [address] Elsie Dewey M.D. [address] [place] [address] 10/22/2023 2:00 PM CDT Appointment Department of Radiation Oncology in [place], [place] [address] [place] [address] Elsie Dewey M.D. [address] [place] [address] 10/23/2023 1:45 PM CDT Appointment Department of Radiation Oncology in [place], [place] [address] [place] [address] Elsie Dewey M.D. [address] [place] [address] 10/24/2023 1:45 PM CDT Appointment Department of Radiation Oncology in [place], [place] [address] [place] [address] Elsie Dewey M.D. [address] [place] [address] 10/25/2023 1:45 PM CDT Appointment Department of Radiation Oncology in [place], [place] [address] [place] [address] Elsie Dewey M.D. [address] [place] [address] 10/28/2023 1:45 PM CDT Appointment Department of Radiation Oncology in [place], [place] [address] [place] [address] Elsie Dewey M.D. [address] [place] [address] 10/29/2023 1:45 PM CDT Appointment Department of Radiation Oncology in [address] [address] Elsie Dewey M.D. [address] [place] [address] 10/29/2023 2:00 PM CDT Appointment Department of Radiation Oncology in [address] [address] Elsie Dewey M.D. [address] [place] [address] 10/30/2023 1:45 PM CDT Appointment Department of Radiation Oncology in [address] [address] Elsie Dewey M.D. [address] [place] [address] 10/31/2023 1:45 PM CDT Appointment Department of Radiation Oncology in [address] [address] Elsie Dewey M.D. [address] [place] [address] 11/01/2023 1:45 PM CDT Appointment Department of Radiation Oncology in [address] [address] Elsie Dewey M.D. [address] [place] [phone] documented as of this encounter Procedures Procedure [...] Abreu M.D. IMG FLUOROSCOPY PRO CEDURES 152 [facility] LOS RST * (ABNORMAL) Cytology Fine Needle [...] ry studies (cone 22C3, [employer] [place], [place], [place]; using a proprietary detection system (D1): [...] reagent. Its performance characteristics were determined by [facility] in a manner consistent with CLIA requirements. This test has not been cleared or approved by the U.S. Food and Drug Administration. Test results for (IHC or SARA) testing are valid for specimens fixed between 6 and 72 hours. ??Delay to fixation, under fixation or over fixation fall outside of guidelines and may affect these results. Genetic testing for [facility] Solid Tumor Panel (MCSTP) will be [...] diagnosis. Immunohistochemica l stains were performed at [facility] (block A1). KRT7, Napsin A, TTF1(SPT24), p40.(A) 09/12/2023 8:24 AM CDT DTL Aspirate (Lung, Right Upper Lobe) 09/05/2023 8:10 AM CDT Tissue (Lung, Right Upper Lobe) 09/05/2023 9:11 AM CDT Aspirate (Lymph Node) 09/05/2023 9:38 AM CDT Aspirate (Lymph Node) 09/05/2023 9:43 AM CDT Phil Abreu M.D. LAB SURG PATH ORDER [facility] [address] [place] [address], [facility] DTL [address] [place] [address] documented in this encounter Visit Diagnoses Diagnosis [...] Ringer's 20 mL/hr, intravenous, Continuous, Starting on Natail 09/05/23 at 0830, PACU & Post-Op 1024 [...]
--- OUTSIDE RECORDS SUMMARY | 2023-10-02 11:46 | XMS_ITS | Encounter Summary ---
Author Name Unknown Organization [facility] Address [address] [place] [address] Care Team Providers Care Picture Engraver Name Role Phone Unavailable Primary Care Provider Unavailabl e Encounter Details Date Type Department Care Team (Late st Contact Info) Description 09/05/2023 7:15 AM CDT - 09/05/2023 10:05 AM CDT Surgery [facility] MAIN OR [address] [place] [phone] Phil Abreu M.D. [address] [place] [phone] BRONCHOSCOPY FLEXIBLE, ENDOBRONCHIAL ULTRASOUND-GUIDED TRANSBRONCHIAL NEEDLE ASPIRATION. [...] How often do you attend moravian or spiritism serv ices? Never 10/31/2022 Do [...] and heating? Not hard at all 10/31/2022 [facility] [place] of Occupat ional Health - Occupational Stress [...] Instructions After Sedation or Anesthesia for Adults ([place]ian) documented in this encounter Medications at Time [...] I believe was due to the more [id number] degree position and the size of the [...] CDT Appointment Department of Radiation Oncology in [place], [place] [address] [place] [address] Elsie Dewey M.D. [address] [place] [address] 10/03/2023 1:45 PM CDT Appointment Department of Radiation Oncology in [address] [address] Elsie Dewey M.D. [address] [place] [address] 10/04/2023 1:45 PM CDT Appointment Department of Radiation Oncology in [address] [address] Elsie Dewey M.D. [address] [place] [address] 10/07/2023 1:45 PM CDT Appointment Department of Radiation Oncology in [address] [address] Elsie Dewey M.D. [address] [place] [address] 10/08/2023 1:45 PM CDT Appointment Department of Radiation Oncology in [address] [address] Elsie Dewey M.D. [address] [place] [address] 10/08/2023 2:00 PM CDT Appointment Department of Radiation Oncology in [address] [address] Elsie Dewey M.D. [address] [place] [address] 10/09/2023 1:45 PM CDT Appointment Department of Radiation Oncology in [place], [place] [address] [place] [address] Elsie Dewey M.D. 200 [place] [address] 10/10/2023 1:45 PM CDT Appointment Department of Radiation Oncology in [place], [place] [address] [place] [address] Elsie Dewey M.D. [address] [place] [address] 10/11/2023 1:45 PM CDT Appointment Department of Radiation Oncology in [place], [place] [address] [place] [address] Elsie Dewey M.D. 200 [place] [address] 10/14/2023 1:45 PM CDT Appointment Department of Radiation Oncology in [address] [address] Elsie Dewey M.D. [address] [place] [address] 10/15/2023 1:45 PM CDT Appointment Department of Radiation Oncology in [place], [place] [address] [place] [address] Elsie Dewey M.D. [address] [place] [address] 10/15/2023 2:15 PM CDT Appointment Department of Radiation Oncology in [place] [address] [place] [address] Elsie Dewey M.D. [address] [place] [address] 10/16/2023 1:45 PM CDT Appointment Department of Radiation Oncology in [place], [place] [address] [place] [address] Elsie Dewey M.D. [address] [place] [address] 10/17/2023 1:45 PM CDT Appointment Department of Radiation Oncology in [address] [address] Elsie Dewey M.D. [address] [place] [address] 10/18/2023 1:45 PM CDT Appointment Department of Radiation Oncology in [place], [place] [address] [place] [address] Elsie Dewey M.D. [address] [place] [address] 10/21/2023 1:45 PM CDT Appointment Department of Radiation Oncology in [place], [place] [address] [place] [address] Elsie Dewey M.D. [address] [place] [address] 10/22/2023 1:45 PM CDT Appointment Department of Radiation Oncology in [address] [address] Elsie Dewey M.D. [address] [place] [address] 10/22/2023 2:00 PM CDT Appointment Department of Radiation Oncology in [address] [address] Elsie Dewey M.D. [address] [place] [address] 10/23/2023 1:45 PM CDT Appointment Department of Radiation Oncology in [address] [address] Elsie Dewey M.D. [address] [place] [address] 10/24/2023 1:45 PM CDT Appointment Department of Radiation Oncology in [address] [address] Elsie Dewey M.D. [address] [place] [address] 10/25/2023 1:45 PM CDT Appointment Department of Radiation Oncology in [address] [address] Elsie Dewey M.D. [address] [place] [address] 10/28/2023 1:45 PM CDT Appointment Department of Radiation Oncology in [address] [address] Elsie Dewey M.D. [address] [place] [address] 10/29/2023 1:45 PM CDT Appointment Department of Radiation Oncology in [address] [address] Elsie Dewey M.D. [address] [place] [address] 10/29/2023 2:00 PM CDT Appointment Department of Radiation Oncology in [place], [place] [address] [place] [address] Elsie Dewey M.D. [address] [place] [phone] 10/30/2023 1:45 PM CDT Appointment Department of Radiation Oncology in [address] [address] Elsie Dewey M.D. [address] [place] [address] 10/31/2023 1:45 PM CDT Appointment Department of Radiation Oncology in [place], [place] [address] [place] [address] Elsie Dewey M.D. [address] [place] [address] 11/01/2023 1:45 PM CDT Appointment Department of Radiation Oncology in [address] [address] Elsie Dewey M.D. [address] [place] [phone] documented as of this encounter Procedures Procedure [...] on this date for clinical details. Phil Arbeu M.D. IMG FLUOROSCOPY PRO CEDURES 152 [facility] LOS RST * (ABNORMAL) Cytology Fine Needle [...] ry studies (cone 22C3, [employer] [place], [place], [place]; using a proprietary detection system (D1): [...] reagent. Its performance characteristics were determined by [facility] in a manner consistent with CLIA requirements. This test has not been cleared or approved by the U.S. Food and Drug Administration. Test results for (IHC or SARA) testing are valid for specimens fixed between 6 and 72 hours. ??Delay to fixation, under fixation or over fixation fall outside of guidelines and may affect these results. Genetic testing for [facility] Solid Tumor Panel (MCSTP) will be [...] diagnosis. Immunohistochemica l stains were performed at [facility] (block A1). KRT7, Napsin A, TTF1(SPT24), p40.(A) 09/12/2023 8:24 AM CDT DTL Aspirate (Lung, Right Upper Lobe) 09/05/2023 8:10 AM CDT Tissue (Lung, Right Upper Lobe) 09/05/2023 9:11 AM CDT Aspirate (Lymph Node) 09/05/2023 9:38 AM CDT Aspirate (Lymph Node) 09/05/2023 9:43 AM CDT Phil Abreu M.D. LAB SURG PATH ORDER MAGDALENO [facility] [address] [place] [address], [facility] [address] [place] [address] documented in this encounter Visit Diagnoses Diagnosis [...]
--- OUTSIDE RECORDS SUMMARY | 2023-10-02 11:46 | XMS_ITS | Encounter Summary ---
Author Name Unknown Organization [facility] Address [address] [place] [address] Care Team Providers Care Retail General Manager Name Role Phone Unavailable Primary Care Provider Unavailabl e Reason for Referral * Specialty Diagnoses / Procedures Referred By Ervin t Referred To Contact Albertina Stiles APRN, C.N.PJessica, D.N.PJessica [address] [place] [phone] [facility] Region Referral ID Status Reason Start Date Expiration Date Visits Re quested Visits Authorized * Specialty Diagnoses / Procedures Referred By Cassac t Referred To Contact Albertina Stiles APRN, C.N.PJessica, D.N.P. [address] [place] [phone] [facility] Region Referral ID Status Reason Start Date Expiration Date Visits Re quested Visits Authorized * Radiation Therapy (Routine) - Authorized Specialty Diagnoses / Procedures Referred By Contac t Referred To Contact Diagnoses Malignant Neoplasm Of Lung Right (HCC) Procedures Management Visit Elsie Dewey M.D. [address] [place] [phone] [facility] Region Referral ID Status Reason Start Date Expiration Date V isits Requested Visits Authorized [id number] Authorized 09/09/2023 09/08/2024 10 10 * Radiation Therapy (Routine) - Authorized Specialty Diagnoses / Procedures Referred By Contac t Referred To Contact Diagnoses Malignant Neoplasm Of Lung Right (HCC) Procedures Prior Auth Rad Tx Elsie Dewey M.D. 200 [place] [address] [facility] Referral ID Status Reason Start Date Expiration Date V isits Requested Visits Authorized [id number] Authorized 09/09/2023 09/08/2024 1 1 * Radiation Therapy (Routine) - Closed Specialty Diagnoses / Procedures Referred By Contac t Referred To Contact Diagnoses Malignant Neoplasm Of Lung Right (HCC) Procedures Initial Rad Onc Treatment Planning CT Simulation Elsie Dewey M.D. [address] [place] [phone] [facility] Region Referral ID Status Reason Start Date Expiration Date Visits Re quested Visits Authorized [id number] Closed 09/09/2023 09/08/2024 1 1 * Outpatient (Routine) - Closed Specialty Diagnoses / Procedures Referred By Contac t Referred To Contact Radiation Oncology Danielle Glover P.A.-C., M.S. [address] [place] [phone] Elsie Dewey M.D. [address] [place] [phone] Referral ID Status Reason Start Date Expiration Date Visits Re quested Visits Authorized [id number] Closed 08/29/2023 02/27/2025 1 1 Scheduling Instructions MRI brain and bronchoscopy prior in [place] Reason for Visit * Outpatient (Routine) - Closed Specialty Diagnoses / Procedures Referred By Ervin t Referred To Contact Radiation Oncology Danielle Glover P.A.-C., M.S. [address] [place] [phone] Elsie Dewey M.D. [address] [place] [phone] Referral ID Status Reason Start Date Expiration Date Visits Re quested Visits Authorized [id number] Closed 08/29/2023 02/27/2025 1 1 Encounter Details Date Type Department Care Team (Latest Contact Info) Description 09/09/2023 2:53 PM CDT - 09/09/2023 4:42 PM CDT Hospital Encounter Department of Radiation Oncology in [place], [place] [address] [place] [phone] Elsie Dewey M.D. [address] [place] [phone] Malignant Neoplasm Of Lung Left (HCC) (Primary [...] declined 10/31/2022 How often do you attend nondenominational or restorationism serv ices? Never 10/31/2022 Do you belong to any clubs o r organizations such as nondenominational groups, unions, fraternal or athletic groups, or [...] heating? Not hard at all 10/31/2022 [facility] of Occupat ional Health - Occupational Stress [...] underwent a brain MRI last Saturday at [facility]. 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 14. April 22, [...] MRI has not yet been finalized by [facility]. I have reviewed the imaging and [...] M.D. 09/09/2023 4:39 PM CDT Radiation Oncology [facility] [address] [place], [place] [phone] documented in this encounter Plan of Treatment Upcoming Encounters Date Type Department Care Team (Late st Contact Info) Description 10/02/2023 1:00 PM CDT Appointment Department of Radiation Oncology in [address] [phone] Elsie Dewey M.D. [address] [place] [phone] 10/03/2023 1:45 PM CDT Appointment Department of Radiation Oncology in [address] [phone] Elsie Dewey M.D. [address] [place] [phone] 10/04/2023 1:45 PM CDT Appointment Department of Radiation Oncology in [address] [phone] Elsie Dewey M.D. [address] [place] [phone] 10/07/2023 1:45 PM CDT Appointment Department of Radiation Oncology in [place], [place] [address] [place] [phone] Elsie Dewey M.D. [address] [place] [phone] 10/08/2023 1:45 PM CDT Appointment Department of Radiation Oncology in [address] [phone] Elsie Dewey M.D. [address] [place] [phone] 10/08/2023 2:00 PM CDT Appointment Department of Radiation Oncology in [address] [phone] Elsie Dewey M.D. [address] [place] [phone] 10/09/2023 1:45 PM CDT Appointment Department of Radiation Oncology in [address] [address] Elsie Dewey M.D. [address] [place] [phone] 10/10/2023 1:45 PM CDT Appointment Department of Radiation Oncology in [address] [address] Elsie Dewey M.D. [address] [place] [phone] 10/11/2023 1:45 PM CDT Appointment Department of Radiation Oncology in [place], [place] [address] [place] [phone] Elsie Dewey M.D. [address] [place] [phone] 10/14/2023 1:45 PM CDT Appointment Department of Radiation Oncology in [place], [place] [address] [place] [phone] Elsie Dewey M.D. [address] [place] [phone] 10/15/2023 1:45 PM CDT Appointment Department of Radiation Oncology in [address] [address] Elsie Dewey M.D. [address] [place] [phone] 10/15/2023 2:15 PM CDT Appointment Department of Radiation Oncology in [address] [address] Elsie Dewey M.D. [address] [place] [phone] 10/16/2023 1:45 PM CDT Appointment Department of Radiation Oncology in [address] [address] Elsie Dewey M.D. [address] [place] [phone] 10/17/2023 1:45 PM CDT Appointment Department of Radiation Oncology in [address] [phone] Elsie Dewey M.D. [address] [place] [phone] 10/18/2023 1:45 PM CDT Appointment Department of Radiation Oncology in [place], [place] [address] [place] [phone] Elsie Dewey M.D. [address] [place] [phone] 10/21/2023 1:45 PM CDT Appointment Department of Radiation Oncology in [place], [place] [address] [place] [phone] Elsie Dewey M.D. [address] [place] [phone] 10/22/2023 1:45 PM CDT Appointment Department of Radiation Oncology in [place], [place] [address] [place] [phone] Elsie Dewey M.D. [address] [place] [phone] 10/22/2023 2:00 PM CDT Appointment Department of Radiation Oncology in [place], [place] [address] [place] [phone] Elsie Dewey M.D. [address] [place] [phone] 10/23/2023 1:45 PM CDT Appointment Department of Radiation Oncology in [place], [place] [address] [place] [phone] Elsie Dewey M.D. [address] [place] [phone] 10/24/2023 1:45 PM CDT Appointment Department of Radiation Oncology in [place], [place] [address] [place] [phone] Elsie Dewey M.D. [address] [place] [phone] 10/25/2023 1:45 PM CDT Appointment Department of Radiation Oncology in [place], [place] [address] [place] [phone] Elsie Dewey M.D. [address] [place] [phone] 10/28/2023 1:45 PM CDT Appointment Department of Radiation Oncology in [address] [address] Elsie Dewey M.D. [address] [place] [phone] 10/29/2023 1:45 PM CDT Appointment Department of Radiation Oncology in [address] [address] Elsie Dewey M.D. [address] [place] [phone] 10/29/2023 2:00 PM CDT Appointment Department of Radiation Oncology in [address] [address] Elsie Dewey M.D. [address] [place] [phone] 10/30/2023 1:45 PM CDT Appointment Department of Radiation Oncology in [address] [phone] Elsie Dewey M.D. 200 [place] [address] 10/31/2023 1:45 PM CDT Appointment Department of Radiation Oncology in [place], [place] [address] [place] [phone] Elsie Dewey M.D. 200 [place] [address] 11/01/2023 1:45 PM CDT Appointment Department of Radiation Oncology in [place], [place] [address] [place] [phone] Elsie Dewey M.D. 200 [place] [address] Scheduled Orders Name Type Priority Associated Diagnoses [...] Dewey M.D. 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
--- OUTSIDE RECORDS SUMMARY | 2023-10-02 11:46 | XMS_ITS | Encounter Summary ---
Author Name Unknown Organization [facility] Address [address] [place] [address] Care Team Providers Care Cam Maker Name Role Phone Unavailable Primary Care Provider Unavailabl e Encounter Details Date Type Department Care Team ([facility] st Contact Info) Description 09/05/2023 7:38 AM CDT Anesthesia Event RST ROMB MAIN OR [address] [place] [phone] Darshana Reyes M.D. [address] [place] [phone] Syd Patton M.D., Ph.D. [address] [place] [phone] Anesthesia Record Procedure Summary Procedure Name Responsible [...] declined 10/31/2022 How often do you attend episcopal or sabianism serv ices? Never 10/31/2022 Do you belong to any clubs o r organizations such as episcopal groups, unions, fraternal or athletic groups, or [...] and heating? Not hard at all 10/31/2022 [facility] of Occupat ional Health - Occupational Stress [...] place to sleep or slept in a chcf (including now)? No 10/31/2022 Nutrition Answer Date [...] Procedure Summary Date: 09/05/23 Room / Location: [address] / [facility] in [place], [place] Anesthesia Start: 0738 Anesthesia Stop: 101 Procedures: BRONCHOSCOPY FLEXIBLE, ENDOBRONCHIAL [...] * Anesthesia Procedure Notes - Dariusz Pacheco, ANATOMIC PATHOLOGY ASSISTANT, TESTING LEAD, DNAP - 09/05/2023 7:56 AM CDTAssociated Order(s): [...] ETT location: oral VL device: glide scope Dilworth scope blade size: 3 Tube size: 8 [...] Abnormal Positron Emission Tomography Scan [R94.8]. Location: [place] [address] / [facility] in [place], [place] Providers: Phil Abreu M.D. Pertinent components [...] with patient /legal guardian or through an director of retail. Risks/Benefits/Alternatives of Blood transfusion discussed with patient [...] CDT Appointment Department of Radiation Oncology in [address] [phone] Elsie Dewey M.D. [address] [place] [phone] 10/03/2023 1:45 PM CDT Appointment Department of Radiation Oncology in [address] [address] Elsie Dewey M.D. [address] [place] [phone] 10/04/2023 1:45 PM CDT Appointment Department of Radiation Oncology in [address] [place] [address] Elsie Dewey M.D. [address] [place] [phone] 10/07/2023 1:45 PM CDT Appointment Department of Radiation Oncology in [place], [place] [address] [place] [phone] Elsie Dewey M.D. [address] [place] [phone] 10/08/2023 1:45 PM CDT Appointment Department of Radiation Oncology in [address] [address] Elsie Dewey M.D. [address] [place] [phone] 10/08/2023 2:00 PM CDT Appointment Department of Radiation Oncology in [address] [address] Elsie Dewey M.D. [address] [place] [phone] 10/09/2023 1:45 PM CDT Appointment Department of Radiation Oncology in [place], [place] [address] [place] [phone] Elsie Dewey M.D. [address] [place] [phone] 10/10/2023 1:45 PM CDT Appointment Department of Radiation Oncology in [address] [address] Elsie Dewey M.D. [address] [place] [phone] 10/11/2023 1:45 PM CDT Appointment Department of Radiation Oncology in [address] [phone] Elsie Dewey M.D. [address] [place] [phone] 10/14/2023 1:45 PM CDT Appointment Department of Radiation Oncology in [address] [address] Elsie Dewey M.D. [address] [place] [phone] 10/15/2023 1:45 PM CDT Appointment Department of Radiation Oncology in [address] [address] Elsie Dewey M.D. [address] [place] [phone] 10/15/2023 2:15 PM CDT Appointment Department of Radiation Oncology in [address] [address] Elsie Dewey M.D. [address] [place] [phone] 10/16/2023 1:45 PM CDT Appointment Department of Radiation Oncology in [address] [address] Elsie Dewey M.D. [address] [place] [phone] 10/17/2023 1:45 PM CDT Appointment Department of Radiation Oncology in [address] [address] Elsie Dewey M.D. [address] [place] [phone] 10/18/2023 1:45 PM CDT Appointment Department of Radiation Oncology in [place], [place] [address] [place] [phone] Elsie Dewey M.D. [address] [place] [phone] 10/21/2023 1:45 PM CDT Appointment Department of Radiation Oncology in [place], [place] [address] [place] [phone] Elsie Dewey M.D. [address] [place] [phone] 10/22/2023 1:45 PM CDT Appointment Department of Radiation Oncology in [place], [place] [address] [place] [phone] Elsie Dewey M.D. [address] [place] [phone] 10/22/2023 2:00 PM CDT Appointment Department of Radiation Oncology in [place], [place] [address] [place] [phone] Elsie Dewey M.D. [address] [place] [phone] 10/23/2023 1:45 PM CDT Appointment Department of Radiation Oncology in [address] [address] Elsie Dweey M.D. [address] [place] [phone] 10/24/2023 1:45 PM CDT Appointment Department of Radiation Oncology in [place], [place] [address] [place] [phone] Elsie Dewey M.D. [address] [place] [phone] 10/25/2023 1:45 PM CDT Appointment Department of Radiation Oncology in [place], [place] [address] [place] [phone] Elsie Dewey M.D. [address] [place] [phone] 10/28/2023 1:45 PM CDT Appointment Department of Radiation Oncology in [address] [address] Elsie Dewey M.D. [address] [place] [phone] 10/29/2023 1:45 PM CDT Appointment Department of Radiation Oncology in [address] [address] Elsie Dewey M.D. [address] [place] [phone] 10/29/2023 2:00 PM CDT Appointment Department of Radiation Oncology in [address] [address] Elsie Dewey M.D. [address] [place] [phone] 10/30/2023 1:45 PM CDT Appointment Department of Radiation Oncology in [address] [address] Elsie Dewey M.D. 200 [place] [phone] 10/31/2023 1:45 PM CDT Appointment Department of Radiation Oncology in [place], [place] [address] [place] [address] Elsie Dewey M.D. 200 [place] [phone] 11/01/2023 1:45 PM CDT Appointment Department of Radiation Oncology in [place], [place] [address] [place] [phone] Elsie Dewey M.D. 200 [place] [address] documented as of this encounter Procedures Procedure Name Priority Date/Time Associated Diagnosis Comments LDA ANE ENDOTRACHEAL AIRWAY Routine 09/05/2023 7:54 AM CDT documented in this encounter Results * LDA ANE ENDOTRACHEAL AIRWAY (09/05/2023 7:54 AM CDT) Narrative Dariusz Pacheco APRN, TESTING LEAD, DNAP - 09/05/2023 7:54 AM CDT Dariusz Pacheco APRN, TESTING LEAD, DNAP ? 09/05/2023 ??7:57 AM Airway Date/Time: [...] ETT location: oral VL device: glide scope Dilworth scope blade size: 3 Tube size: 8 [...]
--- OUTSIDE RECORDS SUMMARY | 2023-10-02 11:47 | XMS_ITS | Encounter Summary ---
Author Name Unknown Organization [facility] Address [address] [place] [address] Care Team Providers Care Liability Claims Adjuster Name Role Phone Unavailable Primary Care Provider Unavailabl e Reason for Referral * MRI/CAT/PET Scan (Routine) - Closed Specialty Diagnoses / Procedures Referred By Ervin t Referred To Contact Radiology Diagnoses Malignant Neoplasm Of Lung Left (HCC) Nodules Pulmonary Multiple Lymphadenopathy Mediastinum Abnormal Positron Emission Tomography Scan Procedures CT Chest without IV Contrast Nilo Pickett APRN, C.N.P., D.N.P. [address] [place] [phone] [facility] Referral ID Status Reason Start Date Expiration Date Visits Re quested Visits Authorized [id number] Closed 08/29/2023 08/28/2024 1 1 * Outpatient (Routine) - Closed Specialty Diagnoses / Procedures Referred By Ervin frye Referred To Contact Diagnoses Malignant Neoplasm Of Lung Left (HCC) Nodules Pulmonary Multiple Lymphadenopathy Mediastinum Abnormal Positron Emission Tomography Scan Procedures ECG 12 Lead Nilo Pickett APRN, C.N.P., D.N.P. [address] [place] [phone] [facility] Referral ID Status Reason Start Date Expiration Date Visits Re quested Visits Authorized [id number] Closed 08/29/2023 08/28/2024 1 1 Encounter Details Date Type Department Care Team (Late st Contact Info) Description 08/29/2023 Documentation Division of Pulmonary Medicine in [place], [place] [address] [place] [address] Nilo Pickett APRN, C.N.P., Perri.N.P. [address] [place] [address] Social History Tobacco Use Types Packs/Day Years [...] How often do you attend episcopal or cheondoism serv ices? Never 10/31/2022 Do [...] CDT Appointment Department of Radiation Oncology in [address] [address] Elsie Dewey M.D. [address] [place] [phone] 10/03/2023 1:45 PM CDT Appointment Department of Radiation Oncology in [address] [address] Elsie Dewey M.D. [address] [place] [phone] 10/04/2023 1:45 PM CDT Appointment Department of Radiation Oncology in [address] [address] Elsie Dewey M.D. [address] [place] [phone] 10/07/2023 1:45 PM CDT Appointment Department of Radiation Oncology in [address] [address] Elsie Dewey M.D. [address] [place] [phone] 10/08/2023 1:45 PM CDT Appointment Department of Radiation Oncology in [address] [address] Elsie Dewey M.D. [address] [place] [phone] 10/08/2023 2:00 PM CDT Appointment Department of Radiation Oncology in [address] [address] Elsie Dewey M.D. [address] [place] [phone] 10/09/2023 1:45 PM CDT Appointment Department of Radiation Oncology in [address] [address] Elsie Dewey M.D. [address] [place] [phone] 10/10/2023 1:45 PM CDT Appointment Department of Radiation Oncology in [address] [address] Elsie Dewey M.D. [address] [place] [phone] 10/11/2023 1:45 PM CDT Appointment Department of Radiation Oncology in [address] [address] Elsie Dewey M.D. [address] [place] [phone] 10/14/2023 1:45 PM CDT Appointment Department of Radiation Oncology in [address] [address] Elsie Dewey M.D. [address] [place] [phone] 10/15/2023 1:45 PM CDT Appointment Department of Radiation Oncology in [place], [place] [address] [place] [phone] Elsie Dewey M.D. [address] [place] [phone] 10/15/2023 2:15 PM CDT Appointment Department of Radiation Oncology in [address] [address] Elsie Dewey M.D. [address] [place] [phone] 10/16/2023 1:45 PM CDT Appointment Department of Radiation Oncology in [place], [place] [address] [place] [phone] Elsie Dewey M.D. [address] [place] [phone] 10/17/2023 1:45 PM CDT Appointment Department of Radiation Oncology in [address] [address] Elsie Dewey M.D. [address] [place] [phone] 10/18/2023 1:45 PM CDT Appointment Department of Radiation Oncology in [address] [address] Elsie Dewey M.D. [address] [place] [phone] 10/21/2023 1:45 PM CDT Appointment Department of Radiation Oncology in [place], [place] [address] [place] [phone] Elsie Dewey M.D. [address] [place] [phone] 10/22/2023 1:45 PM CDT Appointment Department of Radiation Oncology in [place], [place] [address] [place] [phone] Elsie Dewey M.D. [address] [place] [phone] 10/22/2023 2:00 PM CDT Appointment Department of Radiation Oncology in [address] [address] Elsie Dewey M.D. [address] [place] [phone] 10/23/2023 1:45 PM CDT Appointment Department of Radiation Oncology in [address] [address] Elsie Dewey M.D. [address] [place] [address] 10/24/2023 1:45 PM CDT Appointment Department of Radiation Oncology in [address] [address] Elsie Dewey M.D. [address] [place] [phone] 10/25/2023 1:45 PM CDT Appointment Department of Radiation Oncology in [address] [address] Elsie Dewey M.D. [address] [place] [phone] 10/28/2023 1:45 PM CDT Appointment Department of Radiation Oncology in [place], [place] [address] [place] [phone] Elsie Dewey M.D. [address] [place] [address] 10/29/2023 1:45 PM CDT Appointment Department of Radiation Oncology in [address] [address] Elsie Dewey M.D. [address] [place] [phone] 10/29/2023 2:00 PM CDT Appointment Department of Radiation Oncology in [address] [address] Elsie Dewey M.D. [address] [place] [phone] 10/30/2023 1:45 PM CDT Appointment Department of Radiation Oncology in [address] [address] Elsie Dewey M.D. [address] [place] [phone] 10/31/2023 1:45 PM CDT Appointment Department of Radiation Oncology in [place], [place] [address] [place] [phone] Elsie Dewey M.D. [address] [place] [phone] 11/01/2023 1:45 PM CDT Appointment Department of Radiation Oncology in [place], [place] [address] [place] [phone] Elsie Dewey M.D. [address] [place] [address] documented as of this encounter Results * [facility] Solid Tumor Panel, Next-Generation Sequencing, Tumor [...] the 2017 AMP/ASCO/CAP Joint consensus recommendation [PMID [id number]] as follows: Tier 1 - Variant with strong clinical significance; Tier 2 - Variant with potential clinical significance; Tier 3 - Variant of unknown (uncertain) clinical significance; Tier 4 - Benign or likely benign variant. Tiers 1 and 2 variants are clinically significant mutations and rearrangements. Only Tiers 1 and 2 variants are interpreted. A complete gene list is available online ([email or web address] ; test code MCSTP) 09/25/2023 6:50 PM CDT DTL Clinical Trials Clinical trials associated with Tiers 1 and 2 variants that have a status of recruiting are included in the table above. 09/25/2023 6:50 PM CDT DTL Variants of Uncertain Significance The following VARIANTS OF UNCERTAIN SIGNIFICANCE were identified: APC, c.6989C>T (p.F0710F) (VAF: 15%) AR, c.170_172del (p.L57del) (VAF: 8.8%) ARID1A, c.472C>T (p.P158S) (VAF: 40%) BCL10, c.529C>G (p.L177V) (VAF: 21%) BCOR, c.1342G>C (p.V448L) (VAF: 19%) CBL, c.647G>A (p.S216N) (VAF: 33%) EGFR, c.5121-273C>T (VAF: 26%) EIF4A2, c.109G>T (p.D37Y) (VAF: 36%) EIF4A2, c.948G>A (p.M316I) (VAF: 38%) EPHA5, c.634C>A (p.L212I) (VAF: 32%) ETS1, c.215-17571X>A (VAF: 21%) FANCA, c.2647C>G (p.L883V) (VAF: 15%) FANCL, c.1028G>C (p.R343T) (VAF: 17%) FGF10, c.325+1116_325+1117 delinsAT (VAF: 58%) FGFR3, c.2274+3G>C (VAF: 14%) FGFR4, c.940G>A (p.E314K) (VAF: 17%) FLCN, c.652C>T (p.R218C) (VAF: 50%) GNA13, c.412G>C (p.E138Q) (VAF: 56%) NPK98IA6, c.2143G>C (p.E715Q) (VAF: 20%) IGF1R, c.3680A>T (p.U0312U) (VAF: 46%) KDR, c.3445C>A (p.J7614V) (VAF: 32%) KLHL6, c.1300A>G (p.R434G) (VAF: 59%) LRP1B, c.28168C>T (p.P6931I) (VAF: 34%) MDC1, c.3875G>A (p.I0823V) (VAF: 2.1%) MDC1, c.3774_3775delinsAT (p.X1520A) (VAF: 2.5%) MDC1, c.3698A>G (p.Y7063G) (VAF: 2.5%) MDC1, c.3528_3529delinsAT (p.S4512Z) (VAF: 3%) MST1, c.1637C>T (p.T546M) (VAF: 3.4%) NOTCH2, c.4238T>A (p.R0658V) (VAF: 39%) PAX8, c.1087+26T>A (VAF: 37%) HDM7S7B, c.3956G>C (p.Q7066D) (VAF: 23%) PIK3R2, c.1456G>A (p.E486K) (VAF: 16%) PTCH1, c.1882C>G (p.Q628E) (VAF: 14%) PTPRD, c.3001G>A (p.Q3217E) (VAF: 14%) PTPRT, c.91G>C (p.G31R) (VAF: 38%) SMARCA4, c.2810G>T (p.S937I) (VAF: 16%) TGFBR1, c.722C>T (p.S241L) (VAF: 10%) TP53, c.97-52G>A (VAF: 27%) TSC2, c.1318G>T (p.G440C) (VAF: 19%) ZBTB7A, c.657C>A (p.F219L) (VAF: 18%) ZFHX3, c.7576C>G (p.S3562B) (VAF: 19%) 09/25/2023 6:50 PM CDT DTL Specimen Cells 09/25/2023 6:50 PM CDT DTL Tissue ID [id number] D1 09/25/2023 6:50 PM CDT DTL Method Microscopic examination was performed by a pathologist to identify areas of tumor for enrichment by macrodissection. DNA and RNA were extracted from FFPE or cytology slides, and next generation sequencing using the Shout 500 chemistry was performed. The following variant types and molecular profiles were evaluated: tumor mutation burden (TMB) status, microsatellite instability (MSI) status, sequence variants involving exonic regions and exon/intron boundaries of 515 genes, gene amplifications in 59 genes, fusions involving any of 55 genes, and transcript variants in 3 genes. AMP/ASCO/CAP classifications and clinical trials and therapeutic information were powered by [employer] - Interpret One (QCI-II). Variant nomenclature is based on build GRCh37 (hg19). For targeted gene lists, details about gene transcripts (GenBank accession numbers), specific targeted regions of each gene, and additional information on this test, see www.[employer] (Test ID MCSTP). 09/25/2023 6:50 PM CDT [...] of heterozygosity) and sequencing artifact/misalignme nt [PMID: 66917509, PMID: 98426210]. Tumor Purity: A tumor percentage of greater [...] developed and its performance characteristics determined by [facility] in a manner consistent with [...] instability (MSI-H)/defective DNA mismatch repair (dMMR) [PMID: 64154398, PMID: 37998240, PMID: 82834059]. 1) KRAS c.34G>T (p.G12C) (VAF: 74%) GENE/VARIANT SUMMARY KRAS G12C ([id number]) is an activating mutation. KRAS encodes a signaling protein member of the New family [PMID:05301249, PMID:72893267, PMID:86972928]. Activating KRAS alterations, mainly through mutations at codons G12, G13 and Q61, result in oncogenic activation of downstream signaling pathways, including the Je/MEK/ERK pathway [PMID:00671674, PMID:0556718]. The KRAS G12C mutation lies within the first G box domain of the K-New protein, one of several conserved regions responsible for GTP binding and hydrolysis; disruption of this region creates a protein that is defective for GTP hydrolysis and is therefore constitutively active [PMID:1588837, PMID:3103049, PMID:82882894]. KRAS G12C has been reported as the most common KRAS mutation in non-small cell lung carcinoma (NSCLC), and has been shown to have transforming ability and lead to activation of MEK and ERK signaling; in contrast to KRAS G12D, the G12C mutation has been reported not to result in activation of Akt [PMID:78935475, PMID:90956761, PMID:46801978, PMID:15807342]. KRAS mutations have been reported in 20% of lung adenocarcinoma samples analyzed in COSMIC (October 2022). Numerous studies have reported KRAS mutations to be associated with poor survival in NSCLC patients [PMID:14775184, PMID:13962068, PMID:1897969, PMID:58688039, PMID:6133750, PMID:63825397, PMID:13077148]. THERAPEUTIC IMPLICATIONS Drug sensitivity: Sotorasib and adagrasib have been FDA-approved in patients with locally advanced or metastatic non-small cell lung carcinoma harboring a KRAS G12C mutation, as determined by an FDA-approved test, following treatment with at least one prior systemic therapy [PMID:58692450, PMID:40614781]. Drug resistance: In some cancer types, such as colorectal cancer (CRC) and non-small cell lung cancer (NSCLC), activating KRAS mutations and KRAS amplification have been associated with resistance to Egfr-targeted therapies [PMID:44719223, PMID:75842274, PMID:20145568, PMID:60686727, PMID:97264173, PMID:35583117, PMID:17710844, PMID:74579615, PMID:72597718]. FDA Approved Drugs: Sotorasib Adagrasib. 2) SHARDA c.8001_8007del (p.F0694nh*13) (VAF: 9.1%) GENE/VARIANT SUMMARY SHARDA M8413oj ([id number]) is an inactivating mutation. SHARDA encodes the serine/threonine protein kinase Ataxia telangiectasia mutated (Sharda), which is a member of the PI3K/PI4K family [PMID:63537322]. SHARDA deficiency in cells has been reported to result in progression through the cell cycle even in the presence of DNA damage, resulting in the accumulation of DNA errors and genomic instability that can lead to cancer [PMID:08346852]. The SHARDA frameshift alteration reported here is expected to truncate the Sharda protein prior to the FATC domain, which is critical to the activation of Sharda in response to DNA damage (UniProt) [PMID:46623312, PMID:95412478, PMID:75744532, PMID:77781050]. In addition, this alteration is likely to elicit nonsense-mediated decay [PMID:69192974, PMID:04820416, PMID:2290193, PMID:01028005]. Therefore, this alteration is predicted to be [...] of mutations in homologous recombination repair genes [PMID:97112393, PMID:32062739, PMID:79002535, PMID:27240663, PMID:48689087, PMID:00340091, PMID:90173751]. Preclinical studies have reported that reduced SHARDA expression or inactivating SHARDA mutations sensitized NSCLC cell line models to radiation and MEK inhibitors [PMID:85047359, PMID:45019771]. SHARDA inactivation has also been associated with increased sensitivity to the topoisomerase-2 inhibitor etoposide, the PARP inhibitor olaparib, and the Atr inhibitor berzosertib in a study of preclinical models of lung adenocarcinoma; however, no effects on cisplatin sensitivity were reported [PMID:17265508]. Drug resistance: None. FDA Approved Drugs: None. 3) CDK4 amplification GENE/VARIANT SUMMARY CDK4 amplification is an activating alteration. CDK4 encodes cyclin-dependent kinase 4 (Cdk4), which, along with functional homolog CDK6 and family member CDK2, regulates cell cycle G1 phase progression and the G1/S transition [PMID:13644127]. Cdk4 is activated by Cyclin D, and the resulting Cyclin D-Cdk4 complex phosphorylates the protein Rb, leading to the release of the vineyard tender factor E2F. This process results in the progression of the cell cycle; excessive activity in this pathway may lead to overproliferation [PMID:69391513, PMID:80339742]. Amplification of CDK4, which is located at chromosome 12q13, has been correlated with Cdk4 protein expression, and has been implicated in cell cycle progression, cell proliferation, and tumor growth [PMID:58292877, PMID:46800964, PMID:68307581, PMID:0025796, PMID:62908912, PMID:95228947]. Putative high-level amplification of CDK4 has been [...] basis for their development as anti-cancer agents [PMID:26595250, PMID:75416773, PMID:90641092]. Drug resistance: A study analyzing 65 advanced NSCLC patients, who received EGFR-tyrosine kinase inhibitors (TKIs), has reported an association of CDK4/6 amplification with de maribel EGFR-TKI resistance [PMID:04792101]. Furthermore, CDK4 alterations detected in cell free DNA have been retrospectively associated with poor response to osimertinib in a cohort of 41 NSCLC cases, while alterations in CDK4 or CDK6 detected in cell free DNA have been retrospectively associated with poor response to Egfr TKIs in a cohort of 64 NSCLC cases [PMID:38840641]. FDA Approved Drugs: None. 4) CDKN2A c.189del (p.L64fs*82) (VAF: 65%) GENE/VARIANT SUMMARY CDKN2A L64fs*82 (NM_000077) is an inactivating mutation. CDKN2A is a tumor suppressor gene that encodes the proteins s69XSV3f and p14ARF [PMID:4198629, PMID:7438086, PMID:53129029]. Deletions or mutations resulting in loss of function lead to dysregulation of the p40VQZ3w/Cdk4/Cycli n/Rb and/or the Mdm2/p53 pathways and altered regulation of the cell cycle [PMID:7877976, PMID:2962526, PMID:45988030]. This frameshift alteration within CDKN2A exon 2 is expected to truncate the m65YKP8i protein within the ankyrin repeat region (UniProt). All four ankyrin repeats, which are involved in binding to eubanks targets such as Cdk4, have been suggested to be important for u04UKB3o activity [PMID:09682962, PMID:5015772, PMID:2634132]. This alteration also alters the p14ARF transcript, potentially resulting in a chimeric transcript with the x66JLX1f reading frame (IGV). Older studies examining similar frameshift mutations within exon 2 of CDKN2A reported that these alterations are likely inactivating; however, several studies have suggested that p14ARF exon 2 truncations or frameshift chimeric proteins retain p14ARF function, but not y46JZC5h function [PMID:75268035, PMID:40139768, PMID:77577091, PMID:15535746, PMID:59762528, PMID:05829002]. Therefore, while this alteration may result in sensitivity to Cdk4/6 inhibitors, Mdm2 inhibitors may not be relevant. CDKN2A mutations have been reported in 6% of lung adenocarcinoma samples analyzed in COSMIC (October 2022). THERAPEUTIC IMPLICATIONS Drug sensitivity: There are currently no drugs that directly target inactivating mutations or loss of CDKN2A. Because o99NME8g is known to inhibit Cdk4, tumors with CDKN2A alterations may be sensitive to Cdk4/6 inhibitors [PMID:6382809, PMID:2898697]. p14ARF has been reported to function as a tumor suppressor through stabilization and activation of p53, via a mechanism of Mdm2 inhibition [PMID:03973301, PMID:07526752, PMID:8797875]. However, as the alteration reported here is not expected to affect p14ARF function, Mdm2 inhibitors are not expected to be relevant. Drug resistance: Inactivating CDKN2A alterations, most commonly deletion, have been significantly associated with resistance or lack of response to immune checkpoint blockade monotherapy in NSCLC patients; however, this association was not observed in patients treated with immune checkpoint blockade plus chemotherapy [PMID:80576599, PMID:82567980]. FDA Approved Drugs: None. 5) MDM2 amplification GENE/VARIANT SUMMARY MDM2 amplification is an activating alteration. MDM2 encodes the E3 ubiquitin protein ligase, Mdm2, which mediates the ubiquitination and subsequent degradation of p53, Rb1, and other proteins [PMID:09555382, PMID:83626097, PMID:96870817]. MDM2 gene amplification, which is located at chromosome 12q15, has been correlated with elevated Mdm2 protein expression, as measured by immunohistochemistr y, and frequently with the inactivation of p53 [PMID:96681029, PMID:72775270, PMID:29017408, PMID:51518632]. MDM2 functions as an oncogene, and MDM2 amplification has been shown to play a role in cell proliferation, invasion, and metastasis [PMID:78289325, PMID:4370285, PMID:32894644, PMID:02322260]. Putative high-level amplification of MDM2 has been reported in 4-13% of lung adenocarcinoma cases ([facility] [facility], October 2022). THERAPEUTIC IMPLICATIONS Drug sensitivity: Mdm2 antagonists, which disrupt the Mdm2-p53 interaction, leading to reactivation of p53, are being studied in multiple tumor types [PMID:58432104, PMID:18014373, PMID:51413108, PMID:01176880, PMID:27274554]. Several other classes of Mdm2-p53 disrupting molecules have also been found to have activity, including novel benzodiazepine derivatives [PMID:26954049]. Preclinical studies in pancreatic, breast, and colon cancer cell lines suggest that Mdm2 inhibitors may increase sensitivity of tumors to buckland-based therapies [PMID:30175451, PMID:77543442]. Drug resistance: Amplification of MDM2 or MDM4 has been associated with hyperprogression following treatment with anti-PD-1 or anti-PD-L1 inhibitors in one study. Hyperprogression was defined as a time to treatment less than two months, greater than 50% increase in tumor burden as compared with pre-immunotherapy, and greater than two-fold increase in progression pace [PMID:54240889]. FDA Approved Drugs: None. 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 MED12 encodes Med12, which is part of a Cdk8 kinase-containing Lift Supervisor complex module that contributes to both the activation and repression of vineyard tender and has been shown to be the subunit responsible for direct physical interactions with proteins such as Sox9, beta-catenin, Gli3, and REST [PMID:52707608, PMID:19727070, PMID:19100834, PMID:61376411, PMID:47460952]. Mutation and loss of MED12 have been reported in several types of cancer; it has been suggested that inactivation of Med12 may promote cancer through the dysregulation of several signaling pathways, including TGF-beta, MEK, ERK and hormone receptors [PMID:59827705, PMID:99177812, PMID:29593200]. The MED12 nonsense alteration reported here is expected to truncate the Med12 protein prior to or within the OPA domain (UniProt) [PMID:21375173, PMID:27567972, PMID:95728680]. A preclinical study has reported that disruption of the OPA domain can be associated with changes to neurogenesis, as well as disruption of transcriptional suppression in model organisms [PMID:04213550]. In addition, C-terminal MED12 truncations have been reported as germline variants in patients with X-linked syndromic neurodevelopmental disorders [PMID:13443312]. Therefore, the alteration reported here is predicted to be inactivating. MED12 mutations have been reported in 5% of lung adenocarcinoma samples analyzed in [facility]MIC (October 2022). THERAPEUTIC IMPLICATIONS Drug sensitivity: There are no therapies directly targeting alterations in MED12 or Med12 expression. Preclinical studies have reported that Med12 binds to beta-catenin, providing evidence for a role for Med12 and the Lift Supervisor complex in transducing Wnt pathway signaling [PMID:90941601, PMID:62620955]. The relevance of Wnt pathway inhibitors in [...] Egfr, MEK, and Braf, as well as buckland chemotherapies [PMID:28719982, PMID:33293665]. Inactivation of MED12 was identified as a cause of crizotinib resistance in a non-small cell lung carcinoma (NSCLC) cell line. Inhibition of the TGF-beta pathway was able to restore sensitivity of NSCLC cells to crizotinib and gefitinib [PMID:31280354]. FDA Approved Drugs: None. 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 TERT encodes the telomerase reverse transcriptase protein and is activated through multiple mechanisms in several cancer types [PMID:75826423, PMID:04179349, PMID:8302300, PMID:6354305]. TERT promoter -124C>T, also known as C228T, chr5:1295,149 C>T, or c.-124G>A, occurs prior to the transcriptional start site within the promoter of the TERT gene [PMID:39516457, PMID:97930555]. This alteration has been reported to result in increased transcriptional activity of the TERT promoter, hTERT protein expression, telomerase activity, and telomere length, as compared with wild-type TERT [PMID:84873485, PMID:27791491, PMID:71418982, PMID:66591333]. TERT mutations have been reported in 2% of lung adenocarcinoma samples analyzed in COS[facility] (October 2022). THERAPEUTIC IMPLICATIONS Drug sensitivity: Therapies targeting telomeres or telomerase components have been in development, although discoveries regarding alternative roles in normal cells, as well as consequences of shortened telomeres, may limit their use [PMID:02951675, PMID:12859519, PMID:80721600, PMID:97766173, PMID:08757628]. Drug resistance: None. FDA Approved Drugs: None. 09/25/2023 6:50 PM CDT DTL Tissue (Lung, Right) 09/05/2023 10:05 AM CDT 09/11/2023 3:54 PM CDT Nilo Pickett APRN C.N.P., D.N.P. L AB GENETIC TESTING [facility] [address] [place] [address], [facility] DT [address] [place] [address] * ECG 12 Lead (09/04/2023 12:32 PM CDT) Ventricular Rate ECG/Min 70 BPM MUSE UT Interval 168 ms MUSE QRSD Interval 74 ms MUSE QT Interval 408 ms MUSE QTC Interval 440 ms MUSE P [place] 81 degrees MUSE R [place] 27 degrees MUSE T Wave [place] 49 degrees MUSE 09/04/2023 12:3 2 PM [...] D.N.P. E CG ORDERABLES Performing Organization Address City/[facility]/ZIP Co de Phone Number MUSE NA * [...] L AB BLOOD ADD-ON Performing Organization Address City/[facility] Co de Phone Number [facility] [address] [place] [address], [facility] DTL [facility] [address] [place] [address] * (ABNORMAL) Comprehensive Metabolic Panel (09/04/2023 12:11 PM CDT) Potassium, S 4.4 3.6 - 5.2 mmol/L [...] APRN, C.N.P., D.N.P. L AB BLOOD ADD-ON [facility] [address] [place] [address], [facility] DTL [facility] [address] [place] [address] * (ABNORMAL) CBC with Differential, Blood (09/04/2023 [...] APRN, C.N.P., D.N.P. L AB BLOOD ADD-ON [facility] [address] [place] [address], [place] DTL [facility] [address] [place] [address] [facility] [address] [place] [address] * CT Chest without IV Contrast (09/04/2023 [...]
--- OUTSIDE RECORDS SUMMARY | 2023-10-02 11:47 | XMS_ITS | Encounter Summary ---
Author Name Unknown Organization [facility] Address [address] [place] [address] Care Team Providers Care Form Block Maker Name Role Phone Unavailable Primary Care Provider Unavailabl e Encounter Details Date Type Department Care Team (Late st Contact Info) Description 08/30/2023 Clinical Communication Department of Radiation Oncology in [place], [place] [address] [place] [phone] Elsie Dewey M.D. [address] [place] [phone] Social History Tobacco Use Types Packs/Day Years [...] declined 10/31/2022 How often do you attend latter day or sikh serv ices? Never 10/31/2022 Do you belong to any clubs o r organizations such as latter day groups, unions, fraternal or athletic groups, or [...] and heating? Not hard at all 10/31/2022 [facility] of Occupat ional Health - Occupational Stress [...] CDT Appointment Department of Radiation Oncology in [place], [place] [address] [place] [address] Elsie Dewey M.D. [address] [place] [address] 10/03/2023 1:45 PM CDT Appointment Department of Radiation Oncology in [address] [address] Elsie Dewey M.D. [address] [place] [phone] 10/04/2023 1:45 PM CDT Appointment Department of Radiation Oncology in [address] [address] Elsie Dewey M.D. [address] [place] [phone] 10/07/2023 1:45 PM CDT Appointment Department of Radiation Oncology in [address] [address] Elsie Dewey M.D. [address] [place] [phone] 10/08/2023 1:45 PM CDT Appointment Department of Radiation Oncology in [address] [address] Elsie Dewey M.D. [address] [place] [address] 10/08/2023 2:00 PM CDT Appointment Department of Radiation Oncology in [address] [address] Elsie Dewey M.D. [address] [place] [address] 10/09/2023 1:45 PM CDT Appointment Department of Radiation Oncology in [address] [address] Elsie Dewey M.D. [address] [place] [address] 10/10/2023 1:45 PM CDT Appointment Department of Radiation Oncology in [place], [place] [address] [place] [phone] Elsie Dewey M.D. 200 [place] [address] 10/11/2023 1:45 PM CDT Appointment Department of Radiation Oncology in [place], [place] [address] [place] [address] Elsie Dewey M.D. [address] [place] [phone] 10/14/2023 1:45 PM CDT Appointment Department of Radiation Oncology in [place], [place] [address] [place] [phone] Elsie Dewey M.D. [address] [place] [address] 10/15/2023 1:45 PM CDT Appointment Department of Radiation Oncology in [address] [address] Elsie Dewey M.D. [address] [place] [address] 10/15/2023 2:15 PM CDT Appointment Department of Radiation Oncology in [address] [address] Elsie Dewey M.D. [address] [place] [address] 10/16/2023 1:45 PM CDT Appointment Department of Radiation Oncology in [place], [place] [address] [place] [phone] Elsie Dewey M.D. [address] [place] [address] 10/17/2023 1:45 PM CDT Appointment Department of Radiation Oncology in [place], [place] [address] [place] [phone] Elsie Dewey M.D. [address] [place] [address] 10/18/2023 1:45 PM CDT Appointment Department of Radiation Oncology in [address] [address] Elsie Dewey M.D. [address] [place] [address] 10/21/2023 1:45 PM CDT Appointment Department of Radiation Oncology in [address] [address] Elsie Dewey M.D. [address] [place] [address] 10/22/2023 1:45 PM CDT Appointment Department of Radiation Oncology in [place], [place] [address] [place] [phone] Elsie Dewey M.D. [address] [place] [address] 10/22/2023 2:00 PM CDT Appointment Department of Radiation Oncology in [address] [address] Elsie Dewey M.D. [address] [place] [phone] 10/23/2023 1:45 PM CDT Appointment Department of Radiation Oncology in [place], [place] [address] [place] [phone] Elsie Dewey M.D. 200 [place] [address] 10/24/2023 1:45 PM CDT Appointment Department of Radiation Oncology in [place], [place] [address] [place] [phone] Elsie Dewey M.D. [address] [place] [address] 10/25/2023 1:45 PM CDT Appointment Department of Radiation Oncology in [place], [place] [address] [place] [phone] Elsie Dewey M.D. 200 [place] [address] 10/28/2023 1:45 PM CDT Appointment Department of Radiation Oncology in [address] [address] Elsie Dewey M.D. [address] [place] [phone] 10/29/2023 1:45 PM CDT Appointment Department of Radiation Oncology in [address] [address] Elsie Dewey M.D. [address] [place] [address] 10/29/2023 2:00 PM CDT Appointment Department of Radiation Oncology in [address] [place] [address] Elsie Dewey M.D. [address] [place] [address] 10/30/2023 1:45 PM CDT Appointment Department of Radiation Oncology in [place], [place] [address] [place] [address] Elsie Dewey M.D. 200 [place] [address] 10/31/2023 1:45 PM CDT Appointment Department of Radiation Oncology in [place], [place] [address] [place] [address] Elsie Dewey M.D. 200 [place] [address] 11/01/2023 1:45 PM CDT Appointment Department of Radiation Oncology in [place], [place] [address] [place] [address] Elsie Dewey M.D. [address] [place] [phone] documented as of this encounter Visit Diagnoses Not on filedocumented in this encounter
--- OUTSIDE RECORDS SUMMARY | 2023-10-02 11:47 | XMS_ITS | Encounter Summary ---
Author Name Unknown Organization [facility] Address [address] [place] [address] Care Team Providers Care Automotive Electrical Helper Name Role Phone Unavailable Primary Care Provider Unavailabl e Encounter Details Date Type Department Care Team (Late st Contact Info) Description 09/04/2023 Orders Only Division of Pulmonary Medicine in [place], [place] [address] [place] [phone] Nilo Pickett APRN, C.N.P., D.N.P. [address] [place] [phone] Anemia Microcytic (Primary Dx) Social History Tobacco [...] declined 10/31/2022 How often do you attend yazidi or hindu serv ices? Never 10/31/2022 Do you belong to any clubs o r organizations such as yazidi groups, unions, fraternal or athletic groups, or [...] heating? Not hard at all 10/31/2022 [facility] - Occupational Stress Questionnaire Answer Date [...] CDT Appointment Department of Radiation Oncology in [place], [place] [address] [place] [address] Elsie Dewey M.D. [address] [place] [address] 10/03/2023 1:45 PM CDT Appointment Department of Radiation Oncology in [place], [place] [address] [place] [phone] Elsie Dewey M.D. [address] [place] [address] 10/04/2023 1:45 PM CDT Appointment Department of Radiation Oncology in [address] [address] Elsie Dewey M.D. [address] [place] [address] 10/07/2023 1:45 PM CDT Appointment Department of Radiation Oncology in [address] [address] Elsie Dewey M.D. [address] [place] [address] 10/08/2023 1:45 PM CDT Appointment Department of Radiation Oncology in [address] [address] Elsie Dewey M.D. [address] [place] [address] 10/08/2023 2:00 PM CDT Appointment Department of Radiation Oncology in [address] [address] Elsie Dewey M.D. [address] [place] [address] 10/09/2023 1:45 PM CDT Appointment Department of Radiation Oncology in [address] [address] Elsie Dewey M.D. [address] [place] [address] 10/10/2023 1:45 PM CDT Appointment Department of Radiation Oncology in [place], [place] [address] [place] [address] Elsie Dewey M.D. [address] [place] [address] 10/11/2023 1:45 PM CDT Appointment Department of Radiation Oncology in [address] [address] Elsie Dewey M.D. [address] [place] [address] 10/14/2023 1:45 PM CDT Appointment Department of Radiation Oncology in [place], [place] [address] [place] [address] Elsie Dewey M.D. [address] [place] [address] 10/15/2023 1:45 PM CDT Appointment Department of Radiation Oncology in [place], [place] [address] [place] [address] Elsie Dewey M.D. [address] [place] [address] 10/15/2023 2:15 PM CDT Appointment Department of Radiation Oncology in [address] [address] Elsie Dewey M.D. [address] [place] [address] 10/16/2023 1:45 PM CDT Appointment Department of Radiation Oncology in [place], [place] [address] [place] [address] Elsie Dewey M.D. [address] [place] [phone] 10/17/2023 1:45 PM CDT Appointment Department of Radiation Oncology in [place], [place] [address] [place] [address] Elsie Dewey M.D. [address] [place] [address] 10/18/2023 1:45 PM CDT Appointment Department of Radiation Oncology in [address] [address] Elsie Dewey M.D. [address] [place] [address] 10/21/2023 1:45 PM CDT Appointment Department of Radiation Oncology in [address] [address] Elsie Dewey M.D. [address] [place] [address] 10/22/2023 1:45 PM CDT Appointment Department of Radiation Oncology in [address] [address] Elsie Dewey M.D. [address] [place] [address] 10/22/2023 2:00 PM CDT Appointment Department of Radiation Oncology in [address] [address] Elsie Dewey M.D. [address] [place] [address] 10/23/2023 1:45 PM CDT Appointment Department of Radiation Oncology in [place], [place] [address] [place] [address] Elsie Dewey M.D. [address] [place] [address] 10/24/2023 1:45 PM CDT Appointment Department of Radiation Oncology in [place], [place] [address] [place] [address] Elsie Dewey M.D. [address] [place] [phone] 10/25/2023 1:45 PM CDT Appointment Department of Radiation Oncology in [place], [place] [address] [place] [address] Elsie Dewey M.D. [address] [place] [phone] 10/28/2023 1:45 PM CDT Appointment Department of Radiation Oncology in [address] [address] Elsie Dewey M.D. [address] [place] [address] 10/29/2023 1:45 PM CDT Appointment Department of Radiation Oncology in [place], [place] [address] [place] [address] Elsie Dewey M.D. [address] [place] [phone] 10/29/2023 2:00 PM CDT Appointment Department of Radiation Oncology in [place], [place] [address] [place] [address] Elsie Dewey M.D. [address] [place] [address] 10/30/2023 1:45 PM CDT Appointment Department of Radiation Oncology in [place], [place] [address] [place] [address] Elsie Dewey M.D. [address] [place] [address] 10/31/2023 1:45 PM CDT Appointment Department of Radiation Oncology in [place] [address] [place] [address] Elsie Dewey M.D. [address] [place] [address] 11/01/2023 1:45 PM CDT Appointment Department of Radiation Oncology in [place], [place] [address] [place] [address] Elsie Dewey M.D. [address] [place] [address] documented as of this encounter Visit Diagnoses Diagnosis Anemia Microcytic- Primary documented in this encounter
--- OUTSIDE RECORDS SUMMARY | 2023-10-02 11:47 | XMS_ITS | Encounter Summary ---
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 [address] [place] [address] Referral ID Status Reason Start Date Expiration Date Visits Re quested Visits Authorized [id number] Closed 07/29/2023 07/28/2024 1 1 Encounter Details Date Type Department Care Team (Latest Contact Info) Description 07/30/2023 2:54 PM [facility] - 07/30/2023 4:35 PM [facility] Hospital Encounter Department of Radiation Oncology in [place], [place] [address] [place] [phone] Elsie Dewey M.D. 200 [place] [address] Malignant Neoplasm Of Lung Left (HCC) (Primary [...] How often do you attend anabaptism or orthodoxy serv ices? Never 10/31/2022 Do [...] and heating? Not hard at all 10/31/2022 [facility] [place] of Occupat ional Health - Occupational Stress [...] Comments Blood Pressure 154/73 07/30/2023 3:04 PM NEUROPSYCHIATRIC AIDE Pulse 105 07/30/2023 3:04 PM NEUROPSYCHIATRIC AIDE Temperature 35.8 ??C (96.4 ??F) 07/30/2023 3:04 PM CS T Respiratory Rate - - Oxygen Saturation - - Inhaled Oxygen Concentration - - Weight 57.7 kg (127 lb 3.3 oz) 07/30/2023 3:04 P M NEUROPSYCHIATRIC AIDE Height - - Body Mass Index 23.17 [...] with the two right lower nodules likely parts sales representative of low-grade adenocarcinoma. 14. April [...] RUL nodule/cancer. I will get this at [facility] and then see her back [...] by: Elsie Dewey M.D. 07/30/2023 4:27 PM NEUROPSYCHIATRIC AIDE Radiation Oncology [facility] [address] [place] [address] OPSYCHIATRIC AIDE documented in this encounter Plan of Treatment Upcoming Encounters Date Type Department Care Team (Late st Contact Info) Description 10/02/2023 1:00 PM CDT Appointment Department of Radiation Oncology in [address] [address] Elsie Dewey M.D. [address] [place] [address] 10/03/2023 1:45 PM CDT Appointment Department of Radiation Oncology in [address] [address] Elsie Dewey M.D. [address] [place] [address] 10/04/2023 1:45 PM CDT Appointment Department of Radiation Oncology in [address] [address] Elsie Dewey M.D. [address] [place] [address] 10/07/2023 1:45 PM CDT Appointment Department of Radiation Oncology in [address] [address] Elsie Dewey M.D. [address] [place] [address] 10/08/2023 1:45 PM CDT Appointment Department of Radiation Oncology in [address] [place] [address] Elsie Dewey M.D. [address] [place] [address] 10/08/2023 2:00 PM CDT Appointment Department of Radiation Oncology in [address] [address] Elsei Dewey M.D. [address] [place] [address] 10/09/2023 1:45 PM CDT Appointment Department of Radiation Oncology in [address] [address] Elsie Dewey M.D. [address] [place] [address] 10/10/2023 1:45 PM CDT Appointment Department of Radiation Oncology in [address] [address] Elsie Dewey M.D. [address] [place] [address] 10/11/2023 1:45 PM CDT Appointment Department of Radiation Oncology in [place], [place] [address] [place] [address] Elsie Dewey M.D. 200 [place] [address] 10/14/2023 1:45 PM CDT Appointment Department of Radiation Oncology in [address] [address] Elsie Dewey M.D. [address] [place] [address] 10/15/2023 1:45 PM CDT Appointment Department of Radiation Oncology in [place], [place] [address] [place] [address] Elsie Dewey M.D. [address] [place] [address] 10/15/2023 2:15 PM CDT Appointment Department of Radiation Oncology in [address] [address] Elsie Dewey M.D. [address] [place] [address] 10/16/2023 1:45 PM CDT Appointment Department of Radiation Oncology in [address] [address] Elsie Dewey M.D. [address] [place] [address] 10/17/2023 1:45 PM CDT Appointment Department of Radiation Oncology in [address] [address] Elsie Dewey M.D. [address] [place] [address] 10/18/2023 1:45 PM CDT Appointment Department of Radiation Oncology in [address] [address] Elsie Dewey M.D. [address] [place] [address] 10/21/2023 1:45 PM CDT Appointment Department of Radiation Oncology in [address] [address] Elsie Dewey M.D. [address] [place] [address] 10/22/2023 1:45 PM CDT Appointment Department of Radiation Oncology in [place], [place] [address] [place] [address] Elsie Dewey M.D. [address] [place] [address] 10/22/2023 2:00 PM CDT Appointment Department of Radiation Oncology in [place], [place] [address] [place] [phone] Elsie Dewey M.D. [address] [place] [address] 10/23/2023 1:45 PM CDT Appointment Department of Radiation Oncology in [place], [place] [address] [place] [address] Elsie Dewey M.D. [address] [place] [address] 10/24/2023 1:45 PM CDT Appointment Department of Radiation Oncology in [place], [place] [address] [place] [phone] Elsie Dewey M.D. [address] [place] [address] 10/25/2023 1:45 PM CDT Appointment Department of Radiation Oncology in [address] [address] Elsie Dewey M.D. [address] [place] [address] 10/28/2023 1:45 PM CDT Appointment Department of Radiation Oncology in [place], [place] [address] [place] [address] Elsie Dewey M.D. [address] [place] [address] 10/29/2023 1:45 PM CDT Appointment Department of Radiation Oncology in [place], [place] [address] [place] [address] Elsie Dewey M.D. [address] [place] [address] 10/29/2023 2:00 PM CDT Appointment Department of Radiation Oncology in [address] [address] Elsie Dewey M.D. [address] [place] [address] 10/30/2023 1:45 PM CDT Appointment Department of Radiation Oncology in [address] [address] Elsie Dewey M.D. [address] [place] [phone] 10/31/2023 1:45 PM CDT Appointment Department of Radiation Oncology in [address] [address] Elsie Dewey M.D. [address] [place] [address] 11/01/2023 1:45 PM CDT Appointment Department of Radiation Oncology in [address] [address] [place] [address] documented as of this encounter Visit Diagnoses Diagnosis Malignant Neoplasm Of Lung Left (HCC)- Primary documented in this encounter
--- OUTSIDE RECORDS SUMMARY | 2023-10-02 11:47 | XMS_ITS | Encounter Summary ---
Author Name Unknown Organization [facility] Address [address] [place] [address] Care Team Providers Care Special Effects Makeup Artist Name Role Phone Unavailable Primary Care Provider Unavailabl e Reason for Referral * MRI/CAT/PET Scan (Routine) - Closed Specialty Diagnoses / Procedures Referred By Ervin frye Referred To Contact Radiology Diagnoses Malignant Neoplasm Of Lung Left (HCC) Nodules Pulmonary Multiple Lymphadenopathy Mediastinum Abnormal Positron Emission Tomography Scan Procedures CT Chest without IV Contrast Nilo Pickett APRN, C.N.P., D.N.P. [address] [place] [phone] [facility] Referral ID Status Reason Start Date Expiration Date Visits Re quested Visits Authorized [id number] Closed 08/29/2023 08/28/2024 1 1 Reason for Visit * MRI/CAT/PET Scan (Routine) - Closed Specialty Diagnoses / Procedures Referred By Ervin frye Referred To Contact Radiology Diagnoses Malignant Neoplasm Of Lung Left (HCC) Nodules Pulmonary Multiple Lymphadenopathy Mediastinum Abnormal Positron Emission Tomography Scan Procedures CT Chest without IV Contrast Nilo Pickett APRN, C.N.P., D.N.P. [address] [place] [phone] [facility] Referral ID Status Reason Start Date Expiration Date Visits Re quested Visits Authorized [id number] Closed 08/29/2023 08/28/2024 1 1 Encounter Details Date Type Department Care Team (Latest Contact Info) Description 09/04/2023 10:55 AM CDT - 09/04/2023 11:58 AM CDT Hospital Encounter Department of Radiology, [facility], in [place], [place] [address] [place] [address] Nilo Pickett APRN, C.N.P., D.N.P. [address] [place] [address] Malignant Neoplasm Of Lung Left (HCC); Nodules [...] declined 10/31/2022 How often do you attend yazdanism or congregation serv ices? Never 10/31/2022 Do you belong to any clubs o r organizations such as yazdanism groups, unions, fraternal or athletic groups, or [...] CDT Appointment Department of Radiation Oncology in [address] [address] Elsie Dewey M.D. [address] [place] [phone] 10/03/2023 1:45 PM CDT Appointment Department of Radiation Oncology in [address] [address] Elsie Dewey M.D. [address] [place] [phone] 10/04/2023 1:45 PM CDT Appointment Department of Radiation Oncology in [address] [address] Elsie Dewey M.D. [address] [place] [phone] 10/07/2023 1:45 PM CDT Appointment Department of Radiation Oncology in [address] [address] Elsie Dewey M.D. [address] [place] [phone] 10/08/2023 1:45 PM CDT Appointment Department of Radiation Oncology in [address] [address] Elsie Dewey M.D. [address] [place] [phone] 10/08/2023 2:00 PM CDT Appointment Department of Radiation Oncology in [place], [place] [address] [place] [address] Elsie Dewey M.D. [address] [place] [phone] 10/09/2023 1:45 PM CDT Appointment Department of Radiation Oncology in [place], [place] [address] [place] [phone] Elsie Dewey M.D. [address] [place] [phone] 10/10/2023 1:45 PM CDT Appointment Department of Radiation Oncology in [place], [place] [address] [place] [phone] Elsie Dewey M.D. [address] [place] [phone] 10/11/2023 1:45 PM CDT Appointment Department of Radiation Oncology in [place], [place] [address] [place] [phone] Elsie Dewey M.D. [address] [place] [phone] 10/14/2023 1:45 PM CDT Appointment Department of Radiation Oncology in [place], [place] [address] [place] [address] Elsie Dewey M.D. [address] [place] [phone] 10/15/2023 1:45 PM CDT Appointment Department of Radiation Oncology in [place], [place] [address] [place] [phone] Elsie Dewey M.D. [address] [place] [phone] 10/15/2023 2:15 PM CDT Appointment Department of Radiation Oncology in [place], [place] [address] [place] [phone] Elsie Dewey M.D. [address] [place] [phone] 10/16/2023 1:45 PM CDT Appointment Department of Radiation Oncology in [address] [address] Elsie Dewey M.D. [address] [place] [phone] 10/17/2023 1:45 PM CDT Appointment Department of Radiation Oncology in [place], [place] [address] [place] [phone] Elsie Dewey M.D. [address] [place] [phone] 10/18/2023 1:45 PM CDT Appointment Department of Radiation Oncology in [address] [address] Elsie Dewey M.D. [address] [place] [phone] 10/21/2023 1:45 PM CDT Appointment Department of Radiation Oncology in [address] [address] Elsie Dewey M.D. [address] [place] [phone] 10/22/2023 1:45 PM CDT Appointment Department of Radiation Oncology in [place], [place] [address] [place] [address] Elsie Dewey M.D. [address] [place] [phone] 10/22/2023 2:00 PM CDT Appointment Department of Radiation Oncology in [place], [place] [address] [place] [phone] Elsie Dewey M.D. [address] [place] [phone] 10/23/2023 1:45 PM CDT Appointment Department of Radiation Oncology in [place], [place] [address] [place] [phone] Elsie Dewey M.D. [address] [place] [phone] 10/24/2023 1:45 PM CDT Appointment Department of Radiation Oncology in [place], [place] [address] [place] [phone] Elsie Dewey M.D. [address] [place] [phone] 10/25/2023 1:45 PM CDT Appointment Department of Radiation Oncology in [place], [place] [address] [place] [address] Elsie Dewey M.D. [address] [place] [phone] 10/28/2023 1:45 PM CDT Appointment Department of Radiation Oncology in [place], [place] [address] [place] [phone] Elsie Dewey M.D. [address] [place] [phone] 10/29/2023 1:45 PM CDT Appointment Department of Radiation Oncology in [address] [address] Elsie Dewey M.D. [address] [place] [phone] 10/29/2023 2:00 PM CDT Appointment Department of Radiation Oncology in [address] [address] Elsie Dewey M.D. [address] [place] [phone] 10/30/2023 1:45 PM CDT Appointment Department of Radiation Oncology in [address] [address] Elsie Dewey M.D. [address] [place] [phone] 10/31/2023 1:45 PM CDT Appointment Department of Radiation Oncology in [address] [address] Elsie Dewey M.D. [address] [place] [phone] 11/01/2023 1:45 PM CDT Appointment Department of Radiation Oncology in [address] [address] Elsie Dewey M.D. [address] [place] [address], [place] [address] documented as of this encounter Procedures Procedure [...]
--- OUTSIDE RECORDS SUMMARY | 2023-10-02 11:47 | XMS_ITS | Encounter Summary ---
Author Name Unknown Organization [facility] Address [address] [place] [address] Care Team Providers Care Director Of Marketing Operations Name Role Phone Unavailable Primary Care Provider Unavailabl e Encounter Details Date Type Department Care Team (Latest Contact Info) Description 09/04/2023 11:59 AM CDT - 09/04/2023 11:59 PM CDT Hospital Encounter Department of Laboratory Medicine and Pathology, [facility], in [place], [place] [address] [place] [address] Nilo Pickett APRN, C.N.P., D.N.P. [address] [place] [address] Malignant Neoplasm Of Lung Left (HCC); Nodules [...] How often do you attend jewish or adventism serv ices? Never 10/31/2022 Do you belong [...] and heating? Not hard at all 10/31/2022 [facility] [place] of Occupat ional Health - Occupational Stress [...] place to sleep or slept in a snf (including now)? No 10/31/2022 Nutrition Answer Date [...] CDT Appointment Department of Radiation Oncology in [address] [address] Elsie Dewey M.D. 200 [place] [address] 10/03/2023 1:45 PM CDT Appointment Department of Radiation Oncology in [address] [address] Elsie Dewey M.D. 200 [place] [address] 10/04/2023 1:45 PM CDT Appointment Department of Radiation Oncology in [address] [place] [address] Elsie Dewey M.D. [address] [place] [phone] 10/07/2023 1:45 PM CDT Appointment Department of Radiation Oncology in [address] [address] Elsie Dewey M.D. [address] [place] [phone] 10/08/2023 1:45 PM CDT Appointment Department of Radiation Oncology in [address] [address] Elsie Dewey M.D. [address] [place] [phone] 10/08/2023 2:00 PM CDT Appointment Department of Radiation Oncology in [address] [address] Elsie Dewey M.D. [address] [place] [phone] 10/09/2023 1:45 PM CDT Appointment Department of Radiation Oncology in [address] [address] Elsie Dewey M.D. 200 [place] [address] 10/10/2023 1:45 PM CDT Appointment Department of Radiation Oncology in [address] [address] Elsie Dewey M.D. [address] [place] [phone] 10/11/2023 1:45 PM CDT Appointment Department of Radiation Oncology in [address] [address] Elsie Dewey M.D. [address] [place] [phone] 10/14/2023 1:45 PM CDT Appointment Department of Radiation Oncology in [address] [address] Elsie Dewey M.D. [address] [place] [phone] 10/15/2023 1:45 PM CDT Appointment Department of Radiation Oncology in [address] [address] Elsie Dewey M.D. [address] [place] [phone] 10/15/2023 2:15 PM CDT Appointment Department of Radiation Oncology in [address] [address] Elsie Dewey M.D. [address] [place] [phone] 10/16/2023 1:45 PM CDT Appointment Department of Radiation Oncology in [address] [address] Elsie Dewey M.D. [address] [place] [phone] 10/17/2023 1:45 PM CDT Appointment Department of Radiation Oncology in [address] [address] Elsie Dewey M.D. [address] [place] [phone] 10/18/2023 1:45 PM CDT Appointment Department of Radiation Oncology in [place], [place] [address] [place] [phone] Elsie Dewey M.D. [address] [place] [phone] 10/21/2023 1:45 PM CDT Appointment Department of Radiation Oncology in [place], [place] [address] [place] [phone] Elsie Dewey M.D. [address] [place] [phone] 10/22/2023 1:45 PM CDT Appointment Department of Radiation Oncology in [place], [place] [address] [place] [phone] Elsie Dewey M.D. [address] [place] [phone] 10/22/2023 2:00 PM CDT Appointment Department of Radiation Oncology in [place], [place] [address] [place] [phone] Elsie Dewey M.D. [address] [place] [phone] 10/23/2023 1:45 PM CDT Appointment Department of Radiation Oncology in [place], [place] [address] [place] [phone] Elsie Dewey M.D. [address] [place] [phone] 10/24/2023 1:45 PM CDT Appointment Department of Radiation Oncology in [place], [place] [address] [place] [phone] Elsie Dewey M.D. [address] [place] [phone] 10/25/2023 1:45 PM CDT Appointment Department of Radiation Oncology in [place], [place] [address] [place] [phone] Elsie Dewey M.D. [address] [place] [phone] 10/28/2023 1:45 PM CDT Appointment Department of Radiation Oncology in [address] [address] Elsie Dewey M.D. [address] [place] [phone] 10/29/2023 1:45 PM CDT Appointment Department of Radiation Oncology in [place], [place] [address] [place] [phone] Elsie Dewey M.D. [address] [place] [phone] 10/29/2023 2:00 PM CDT Appointment Department of Radiation Oncology in [place], [place] [address] [place] [phone] Elsie Dewey M.D. [address] [place] [phone] 10/30/2023 1:45 PM CDT Appointment Department of Radiation Oncology in [address] [address] Elsie Dewey M.D. 200 [place] [phone] 10/31/2023 1:45 PM CDT Appointment Department of Radiation Oncology in [place], [place] [address] [place] [address] Elsie Dewey M.D. 200 [place] [phone] 11/01/2023 1:45 PM CDT Appointment Department of Radiation Oncology in [place], [place] [address] [place] [phone] Elsie Dewey M.D. 200 [place] [phone] Scheduled Orders Name Type Priority Associated Diagnoses [...] APRN, C.N.P., D.N.P. L AB BLOOD ADD-ON [place] [address] [place] [address], [facility] 200 [place] [address] * (ABNORMAL) Comprehensive Metabolic Panel (09/04/2023 12:11 PM CDT) Pathologist [facility] Potassium, S 4.4 3.6 - 5.2 [...] C.N.P., D.N.P. L AB BLOOD ADD-ON [facility] [address] [place] [address], [facility] [address] [place] [address] * (ABNORMAL) CBC with Differential, Blood (09/04/2023 [...] C.N.P., D.N.P. L AB BLOOD ADD-ON [facility] [address] [place] [address], [place] DTL [facility] [address] [place] [address] [facility] [address] [place] [address] documented in this encounter Visit Diagnoses Diagnosis Malignant Neoplasm Of Lung Left (HCC) Nodules Pulmonary Multiple Lymphadenopathy Mediastinum Abnormal Positron Emission Tomography Scan Stroke Cerebrovascular Accident Personal History Anemia Microcytic documented in this encounter
--- OUTSIDE RECORDS SUMMARY | 2023-10-02 11:47 | XMS_ITS | Encounter Summary ---
Author Name Unknown Organization [facility] Address [address] [place] [address] Care Team Providers Care Licensing Manager Name Role Phone Unavailable Primary Care Provider Unavailabl e Reason for Referral * Outpatient (Routine) - Closed Specialty Diagnoses / Procedures Referred By Ervin frye Referred To Contact Radiation Oncology Danielle Glover P.A.-C., M.SJessica [address] [place] [phone] Elsie Dewey M.D. [address] [place] [phone] Referral ID Status Reason Start Date Expiration Date Visits Re quested Visits Authorized [id number] Closed 08/29/2023 02/27/2025 1 1 Scheduling Instructions MRI brain and bronchoscopy prior in [place] * Outpatient (Routine) - Closed Specialty Diagnoses / Procedures Referred By Cassac t Referred To Contact Radiation Oncology Danielle Glover P.A.-C., M.SJessica [address] [place] [phone] Elsie Dewey M.D. [address] [place] [phone] Referral ID Status Reason Start Date Expiration Date Visits Re quested Visits Authorized [id number] Closed 08/27/2023 02/25/2025 1 1 Reason for Visit * Outpatient (Routine) - Closed Specialty Diagnoses / Procedures Referred By Ervin t Referred To Contact Radiation Oncology Danielle Glover P.A.-C., M.S. [address] [place] [phone] Elsie Dewey M.D. [address] [place] [phone] Referral ID Status Reason Start Date Expiration Date Visits Re quested Visits Authorized [id number] Closed 08/27/2023 02/25/2025 1 1 Encounter Details Date Type Department Care Team (Latest Contact Info) Description 08/29/2023 9:14 AM CDT - 08/29/2023 4:11 PM CDT Hospital Encounter Department of Radiation Oncology in [place], [place] [address] [place] [address] Elsie Dewey M.D. [address] [place] [phone] Malignant Neoplasm Of Lung Left (HCC) (Primary [...] How often do you attend confucianist or gnosticist serv ices? 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 14. April 22, [...] and bronchoscopy consult to be scheduled in [place]. Dr. Dewey plans to present the patient's case at [facility] today as well. In addition, a referral order to Medical Oncology at [facility] was placed, to be scheduled in approximately [...] patient care. Signed by: Danielle Glover P.A.-C., M.S. 08/29/2023 10:51 AM CDT [facility] [address] [place] [address] Associated attestation - Elsie Dewey M.D. - 08/29/2023 4:10 PM CDT RADIATION ONCOLOGY FOLLOW-UP VISIT I saw and evaluated the patient and participated in the eubanks portions of the service. I reviewed thedocumentation of . Danielle Glover PA-C, MS and agree with the findings and plan. [...] gayle disease. I will refer her to [facility] and see her back after [...] Appointment Department of Radiation Oncology in [address] [phone] Elsie Dewey M.D. [address] [place] [address] 10/03/2023 1:45 PM CDT Appointment Department of Radiation Oncology in [place], [place] [address] [place] [address] Elsie Dewey M.D. [address] [place] [address] 10/04/2023 1:45 PM CDT Appointment Department of Radiation Oncology in [place], [place] [address] [place] [phone] Elsie Dewey M.D. [address] [place] [phone] 10/07/2023 1:45 PM CDT Appointment Department of Radiation Oncology in [place], [place] [address] [place] [phone] Elsie Dewey M.D. [address] [place] [phone] 10/08/2023 1:45 PM CDT Appointment Department of Radiation Oncology in [address] [phone] Elsie Dewey M.D. [address] [place] [phone] 10/08/2023 2:00 PM CDT Appointment Department of Radiation Oncology in [address] [address] Elsie Dewey M.D. [address] [place] [phone] 10/09/2023 1:45 PM CDT Appointment Department of Radiation Oncology in [place], [place] [address] [place] [phone] Elsie Dewey M.D. [address] [place] [phone] 10/10/2023 1:45 PM CDT Appointment Department of Radiation Oncology in [place], [place] [address] [place] [phone] Elsie Dewey M.D. [address] [place] [phone] 10/11/2023 1:45 PM CDT Appointment Department of Radiation Oncology in [address] [address] Elsie Dewey M.D. [address] [place] [phone] 10/14/2023 1:45 PM CDT Appointment Department of Radiation Oncology in [place], [place] [address] [place] [phone] Elsie Dewey M.D. [address] [place] [phone] 10/15/2023 1:45 PM CDT Appointment Department of Radiation Oncology in [place], [place] [address] [place] [phone] Elsie Dewey M.D. [address] [place] [phone] 10/15/2023 2:15 PM CDT Appointment Department of Radiation Oncology in [address] [address] Elsie Dewey M.D. [address] [place] [phone] 10/16/2023 1:45 PM CDT Appointment Department of Radiation Oncology in [place], [place] [address] [place] [phone] Elsie Dewey M.D. [address] [place] [address] 10/17/2023 1:45 PM CDT Appointment Department of Radiation Oncology in [place], [place] [address] [place] [phone] Elsie Dewey M.D. [address] [place] [address] 10/18/2023 1:45 PM CDT Appointment Department of Radiation Oncology in [place], [place] [address] [place] [phone] Elsie Dewey M.D. 200 [place] [address] 10/21/2023 1:45 PM CDT Appointment Department of Radiation Oncology in [address] [address] Elsie Dewey M.D. 200 [place] [address] 10/22/2023 1:45 PM CDT Appointment Department of Radiation Oncology in [address] [address] Elsie Dewey M.D. [address] [place] [address] 10/22/2023 2:00 PM CDT Appointment Department of Radiation Oncology in [address] [place] [address] Elsie Dewey M.D. [address] [place] [phone] 10/23/2023 1:45 PM CDT Appointment Department of Radiation Oncology in [place], [place] [address] [place] [phone] Elsie Dewey M.D. 200 [place] [address] 10/24/2023 1:45 PM CDT Appointment Department of Radiation Oncology in [address] [address] Elsie Dewey M.D. 200 [place] [address] 10/25/2023 1:45 PM CDT Appointment Department of Radiation Oncology in [place], [place] [address] [place] [phone] Elsie Dewey M.D. [address] [place] [phone] 10/28/2023 1:45 PM CDT Appointment Department of Radiation Oncology in [place], [place] [address] [place] [phone] Elsie Dewey M.D. 200 [place] [address] 10/29/2023 1:45 PM CDT Appointment Department of Radiation Oncology in [address] [address] Elsie Dewey M.D. 200 [place] [address] 10/29/2023 2:00 PM CDT Appointment Department of Radiation Oncology in [address] [address] Elsie Dewey M.D. [address] [place] [address] 10/30/2023 1:45 PM CDT Appointment Department of Radiation Oncology in [address] [address] Elsie Dewey M.D. [address] [place] [phone] 10/31/2023 1:45 PM CDT Appointment Department of Radiation Oncology in [address] [address] Elsie Dewey M.D. [address] [place] [phone] 11/01/2023 1:45 PM CDT Appointment Department of Radiation Oncology in [address] [address] Elsie Dewey M.D. [address] [place] [phone] Scheduled Referrals Name Type Priority Associated Diagnoses Order Schedule Radiation Oncology office visit (clinic) Outpatient Referral Routine Once for 1 Occurrences starting 08/29/2023 until 08/29/2023 Radiation Oncology office visit (clinic) Outpatient Referral Routine Expected: 09/12/2023, Expires: 11/28/2024 documented as of this encounter Visit Diagnoses Diagnosis Malignant Neoplasm Of Lung Left (HCC)- Primary Malignant Neoplasm Of Lung Right (HCC) documented in this encounter
--- OUTSIDE RECORDS SUMMARY | 2023-10-02 11:47 | XMS_ITS | Encounter Summary ---
Author Name Unknown Organization [facility] Address [address] [place] [id number] Care Team Providers Care Kinesiology Professor Name Role Phone Unavailable Primary Care Provider Unavailabl e Reason for Referral * Outpatient (Routine) - Closed Specialty Diagnoses / Procedures Referred By Ervin frye Referred To Contact Radiation Oncology Danielle Glover P.A.-C., M.S. [address] [place] [phone] Elsie Dewey M.D. [address] [place] [phone] Referral ID Status Reason Start Date Expiration Date Visits Re quested Visits Authorized [id number] Closed 08/27/2023 02/25/2025 1 1 Encounter Details Date Type Department Care Team (Late st Contact Info) Description 08/27/2023 Orders Only Department of Radiation Oncology in [place], [place] [address] [place] [address] Danielle Glover P.A.-C., M.S. [address] [place] [phone] Social History Tobacco Use Types Packs/Day Years [...] How often do you attend moravian or buddhism serv ices? Never 10/31/2022 Do you belong [...] and heating? Not hard at all 10/31/2022 [facility]at [facility] - Occupational Stress [...] Appointment Department of Radiation Oncology in [address] [phone] Elsie Dewey M.D. [address] [place] [phone] 10/03/2023 1:45 PM CDT Appointment Department of Radiation Oncology in [address] [phone] Elsie Dewey M.D. [address] [place] [phone] 10/04/2023 1:45 PM CDT Appointment Department of Radiation Oncology in [address] [phone] Elsie Dewey M.D. [address] [place] [phone] 10/07/2023 1:45 PM CDT Appointment Department of Radiation Oncology in [address] [address] Elsie Dewey M.D. [address] [place] [phone] 10/08/2023 1:45 PM CDT Appointment Department of Radiation Oncology in [address] [address] Elsie Dewey M.D. [address] [place] [phone] 10/08/2023 2:00 PM CDT Appointment Department of Radiation Oncology in [place], [place] [address] [place] [phone] Elsie Dewey M.D. [address] [place] [phone] 10/09/2023 1:45 PM CDT Appointment Department of Radiation Oncology in [address] [address] Elsie Dewey M.D. [address] [place] [phone] 10/10/2023 1:45 PM CDT Appointment Department of Radiation Oncology in [address] [address] Elsie Dewey M.D. [address] [place] [address] 10/11/2023 1:45 PM CDT Appointment Department of Radiation Oncology in [place], [place] [address] [place] [phone] Elsie Dewey M.D. [address] [place] [phone] 10/14/2023 1:45 PM CDT Appointment Department of Radiation Oncology in [address] [address] Elsie Dewey M.D. [address] [place] [phone] 10/15/2023 1:45 PM CDT Appointment Department of Radiation Oncology in [place], [place] [address] [place] [phone] Elsie Dewey M.D. [address] [place] [phone] 10/15/2023 2:15 PM CDT Appointment Department of Radiation Oncology in [place], [place] [address] [place] [phone] Elsie Dewey M.D. [address] [place] [phone] 10/16/2023 1:45 PM CDT Appointment Department of Radiation Oncology in [address] [phone] Elsie Dewey M.D. [address] [place] [phone] 10/17/2023 1:45 PM CDT Appointment Department of Radiation Oncology in [address] [address] Elsie Dewey M.D. 200 [place] [address] 10/18/2023 1:45 PM CDT Appointment Department of Radiation Oncology in [address] [address] Elsie Dewey M.D. [address] [place] [phone] 10/21/2023 1:45 PM CDT Appointment Department of Radiation Oncology in [address] [address] Elsie Dewey M.D. [address] [place] [address] 10/22/2023 1:45 PM CDT Appointment Department of Radiation Oncology in [place], [place] [address] [place] [phone] Elsie Dewey M.D. [address] [place] [address] 10/22/2023 2:00 PM CDT Appointment Department of Radiation Oncology in [place], [place] [address] [place] [phone] Elsie Dewey M.D. [address] [place] [phone] 10/23/2023 1:45 PM CDT Appointment Department of Radiation Oncology in [place], [place] [address] [place] [phone] Elsie Dewey M.D. [address] [place] [phone] 10/24/2023 1:45 PM CDT Appointment Department of Radiation Oncology in [address] [address] Elsie Dewey M.D. [address] [place] [phone] 10/25/2023 1:45 PM CDT Appointment Department of Radiation Oncology in [place], [place] [address] [place] [phone] Elsie Dewey M.D. [address] [place] [phone] 10/28/2023 1:45 PM CDT Appointment Department of Radiation Oncology in [place], [place] [address] [place] [phone] Elsie Dewey M.D. [address] [place] [phone] 10/29/2023 1:45 PM CDT Appointment Department of Radiation Oncology in [place], [place] [address] [place] [phone] Elsie Dewey M.D. [address] [place] [phone] 10/29/2023 2:00 PM CDT Appointment Department of Radiation Oncology in [address] [address] Elsie Dewey M.D. [address] [place] [phone] 10/30/2023 1:45 PM CDT Appointment Department of Radiation Oncology in [address] [address] Elsie Dewey M.D. [address] [place] [address] 10/31/2023 1:45 PM CDT Appointment Department of Radiation Oncology in [place], [place] [address] [place] [phone] Elsie Dewey M.D. [address] [place] [phone] 11/01/2023 1:45 PM CDT Appointment Department of Radiation Oncology in [address] [address] Elsie Dewey M.D. [address] [place] [phone] Scheduled Referrals Name Type Priority Associated Diagnoses Orde r Schedule Radiation Oncology office visit (clinic) Outpatient Referral Routine Expected: 08/27/2023 (Approximate), Expires: 11/26/2024 documented as of this encounter Visit Diagnoses Not on filedocumented in this encounter
--- OUTSIDE RECORDS SUMMARY | 2023-10-02 11:47 | XMS_ITS | Encounter Summary ---
Author Name Unknown Organization [facility] Address [address] [place] [address] Care Team Providers Care Data Engineer Name Role Phone Unavailable Primary Care Provider Unavailabl e Encounter Details Date Type Department Care Team (Late st Contact Info) Description 07/30/2023 Tumor Board Conference Department of Radiation Oncology in [place], [place] [address] [place] [phone] Elsie Dewey M.D. [address] [place] [phone] Social History Tobacco Use Types Packs/Day Years [...] How often do you attend anabaptism or pentecostal serv ices? Never 10/31/2022 Do [...] between the patient and the treating physician. UITS ENGINEER documented in this encounter Plan of Treatment Upcoming Encounters Date Type Department Care Team (Late st Contact Info) Description 10/02/2023 1:00 PM CDT Appointment Department of Radiation Oncology in [address] [phone] Elsie Dewey M.D. [address] [place] [phone] 10/03/2023 1:45 PM CDT Appointment Department of Radiation Oncology in [address] [address] Elsie Dewey M.D. [address] [place] [phone] 10/04/2023 1:45 PM CDT Appointment Department of Radiation Oncology in [address] [address] Elsie Dewey M.D. [address] [place] [phone] 10/07/2023 1:45 PM CDT Appointment Department of Radiation Oncology in [address] [address] Elsie Dewey M.D. [address] [place] [address] 10/08/2023 1:45 PM CDT Appointment Department of Radiation Oncology in [place], [place] [address] [place] [address] Elsie Dewey M.D. 200 [place] [address] 10/08/2023 2:00 PM CDT Appointment Department of Radiation Oncology in [place], [place] [address] [place] [phone] Elsie Dewey M.D. [address] [place] [phone] 10/09/2023 1:45 PM CDT Appointment Department of Radiation Oncology in [place], [place] [address] [place] [address] Elsie Dewey M.D. [address] [place] [phone] 10/10/2023 1:45 PM CDT Appointment Department of Radiation Oncology in [place], [place] [address] [place] [address] Elsie Dewey M.D. [address] [place] [phone] 10/11/2023 1:45 PM CDT Appointment Department of Radiation Oncology in [place], [place] [address] [place] [phone] Elsie Dewey M.D. [address] [place] [phone] 10/14/2023 1:45 PM CDT Appointment Department of Radiation Oncology in [place], [place] [address] [place] [phone] Elsie Dewey M.D. [address] [place] [phone] 10/15/2023 1:45 PM CDT Appointment Department of Radiation Oncology in [place], [place] [address] [place] [phone] Elsie Dewey M.D. [address] [place] [phone] 10/15/2023 2:15 PM CDT Appointment Department of Radiation Oncology in [address] [address] Elsie Dewey M.D. [address] [place] [phone] 10/16/2023 1:45 PM CDT Appointment Department of Radiation Oncology in [place], [place] [address] [place] [phone] Elsie Dewey M.D. [address] [place] [address] 10/17/2023 1:45 PM CDT Appointment Department of Radiation Oncology in [place], [place] [address] [place] [address] Elsie Dewey M.D. [address] [place] [phone] 10/18/2023 1:45 PM CDT Appointment Department of Radiation Oncology in [address] [address] Elsie Dewey M.D. [address] [place] [phone] 10/21/2023 1:45 PM CDT Appointment Department of Radiation Oncology in [place], [place] [address] [place] [phone] Elsie Dewey M.D. [address] [place] [address] 10/22/2023 1:45 PM CDT Appointment Department of Radiation Oncology in [address] [address] Elsie Dewey M.D. [address] [place] [phone] 10/22/2023 2:00 PM CDT Appointment Department of Radiation Oncology in [address] [address] Elsie Dewey M.D. 200 [place] [address] 10/23/2023 1:45 PM CDT Appointment Department of Radiation Oncology in [address] [address] Eslie Dewey M.D. [address] [place] [phone] 10/24/2023 1:45 PM CDT Appointment Department of Radiation Oncology in [address] [address] Elsie Dewey M.D. [address] [place] [phone] 10/25/2023 1:45 PM CDT Appointment Department of Radiation Oncology in [address] [address] Elsie Dewey M.D. [address] [place] [phone] 10/28/2023 1:45 PM CDT Appointment Department of Radiation Oncology in [place], [place] [address] [place] [address] Elsie Dewey M.D. 200 [place] [address] 10/29/2023 1:45 PM CDT Appointment Department of Radiation Oncology in [place], [place] [address] [place] [address] Elsie Dewey M.D. 200 [place] [address] 10/29/2023 2:00 PM CDT Appointment Department of Radiation Oncology in [place], [place] [address] [place] [phone] Elsie Dewey M.D. [address] [place] [phone] 10/30/2023 1:45 PM CDT Appointment Department of Radiation Oncology in [place], [place] [address] [place] [address] Elise Dewey M.D. 200 [place] [address] 10/31/2023 1:45 PM CDT Appointment Department of Radiation Oncology in [address] [address] Elsie Dewey M.D. 200 [place] [address] 11/01/2023 1:45 PM CDT Appointment Department of Radiation Oncology in [place], [place] [address] [place] [address] Elsie Dewey M.D. 200 [place] [address] documented as of this encounter Visit Diagnoses Not on filedocumented in this encounter
[2023-10-02 12:09] LABS: Chloride* 108 mmol/L (96-114)
[2023-10-02 12:10] LABS: Potassium* 3.9 mmol/L (3.6-5.1); Sodium* 137 mmol/L (135-149)
[2023-10-02 12:12] LABS: Creatinine* 0.9 mg/dL (0.5-1.5); Est. Creatinine Clearance* 39.04; Estimated Glomerular Filt Rate 67 ml/min; INR 1.13 (0.91-1.10); Prothrombin Time 15.2 Seconds
[2023-10-02 12:13] LABS: Anion Gap 1 mEq/L (7-15); Blood Urea Nitrogen* 31 mg/dL (7-30); Calcium* 8.7 mg/dL (8.4-10.6); Carbon Dioxide* 28 mmol/L (20-32); Glucose* 90 mg/dL (60-115)
[2023-10-02] MEDS: APIXABAN 5 MG TABLET PO (13:32)
[2023-10-02] MEDS: HEPARIN 500 UNIT/5 ML SYRINGE IVF (13:32)
== END 2023-10-02 13:41 | disposition home or self-care (01) ==
PROVIDERS: Emergency Provider Emergency Medicine Emergency Medical Services; PCP Internal Medicine
DX: I26.99 Other pulmonary embolism without acute cor pulmonale (principal); C34.91 Malignant neoplasm of unspecified part of right bronchus or lung; C34.92 Malignant neoplasm of unspecified part of left bronchus or lung; Z79.01 Long term (current) use of anticoagulants
CPT/HCPCS: 36415; 71275; 80048; 84484; 85610; 93005; 99284; 99285; A9270; J1642; Q9967

== ENCOUNTER 2023-12-09 10:07 | Outpatient (CLI) | payer MEDICARE, BC, SELFPAY ==
--- OUTSIDE RECORDS SUMMARY | 2023-12-09 10:11 | XMS_ITS ---
Author Organization [facility] Address [address] [place] [address] Care Team Providers Care Lathmaker Name Role Phone Unavailable Unavailable Unavailable Surgery Details Not on file Complications Check Surgery Details section. Procedure Estimated Blood Loss Check Surgery Details section. Procedure Findings Check Surgery Details section. Procedure Specimens Taken Check Surgery Details section.
--- OUTSIDE RECORDS SUMMARY | 2023-12-09 10:11 | XMS_ITS | Encounter Summary ---
Author Organization [facility] Address [address] [place] [address] Care Team Providers Care Big Data Lead Name Role Phone Unavailable Primary Care Provider Unavailabl e Encounter Details Date Type Department Care Team (Latest Contact Info) Description 10/28/2023 1:12 PM CDT - 10/28/2023 11:59 PM CDT Hospital Encounter Department of Radiation Oncology in [place], [place] [address] [place] [phone] Elsie Dewey M.D. [address] [place] [address] Discharge Disposition: Home or Self Care Social [...] declined 10/31/2022 How often do you attend worship or faith serv ices? Never 10/31/2022 Do you belong to any clubs o r organizations such as worship groups, unions, fraternal or athletic groups, or [...] and heating? Not hard at all 10/31/2022 [facility]at ional Health - [...] place to sleep or slept in a jail (including now)? No 10/31/2022 Nutrition Answer Date Recorded On average, how many serving s of [...] Care Team (Late st Contact Info) Description 12/17/2023 3:30 PM CDT Appointment Department of Radiation Oncology in [place], [place] [address] [place] [address] Elsie Dewey M.D. [address] [place] [address] documented as of this encounter Visit Diagnoses Not on filedocumented in this encounter
--- OUTSIDE RECORDS SUMMARY | 2023-12-09 10:11 | XMS_ITS ---
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 Past Plans No past plan information found. Radiation Treatments * Plan Last Treated On Elapsed Days Fractions Treated Prescribed Fraction Dose Prescribed Total Dose [id number] 11/01/2023 39 30 of 30 200 cGy 6,000 cGy Reference Point Last Treated On Elapsed Days Session Dose Total Dose [id number] 11/01/2023 39 200 cGy 6,000 cGy Lifetime Dose Tracking * Chemical Lifetime Dose Automatic Entry Manual Entr y Radiation 264.4 mGy 264.4 mGy 0 mGy Fluoro Time 9.29 minutes 9.29 minutes 0 minutes DAP (uGy-m2) 4,088.8 uGy-m2 4,088.8 uGy-m2 0 uGy-m2
--- OUTSIDE RECORDS SUMMARY | 2023-12-09 10:11 | XMS_ITS | Encounter Summary ---
Author Organization [facility] Address [address] [place] [address] Care Team Providers Care Bumboater Name Role Phone Unavailable Primary Care Provider Unavailabl e Encounter Details Date Type Department Care Team (Latest Contact Info) Description 10/30/2023 1:10 PM CDT - 10/30/2023 11:59 PM CDT Hospital Encounter Department of Radiation Oncology in [place], [place] [address] [place] [phone] Elsie Dewey M.D. [address] [place] [address] Discharge Disposition: Home or Self Care Social [...] declined 10/31/2022 How often do you attend amish or episcopal serv ices? Never 10/31/2022 Do you belong to any clubs o r organizations such as amish groups, unions, fraternal or athletic groups, or [...] CDT Appointment Department of Radiation Oncology in [place], [place] [address] [place] [address] Elsie Dewey M.D. [address] [place] [address] documented as of this encounter Visit Diagnoses Not on filedocumented in this encounter
--- OUTSIDE RECORDS SUMMARY | 2023-12-09 10:11 | XMS_ITS | Clinical Summary ---
Author Organization [facility] Address [address] [place] [address] Care Team Providers Care Social Sciences Department Chair Name Role Phone Unavailable Primary Care Provider Unavailabl e Source Comments Patient records contain information from all sites at [facility]. For routine questions regarding patient records, call [phone] during business hours, M-F 8:00 AM - 5:00 PM Central Time. Record requests for emergency care only can be directed to [phone] at any time.[facility] Allergies Active Allergy Reactions Criticality Noted [...] Take 10 mcg by mouth. 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 Discharge Disposition: Home or Self Care 11/01/2023 Documentation Department of Radiation Oncology in [address] [address] Elsie Dewey M.D. 10/31/2023 1:24 PM CDT - 10/31/2023 11:59 PM CDT Hospital Encounter Department of Radiation Oncology in [address] [address] Elsie Dewey M.D. Discharge Disposition: Home or Self Care 10/30/2023 1:10 PM CDT - 10/30/2023 11:59 PM CDT Hospital Encounter Department of Radiation Oncology in [address] [address] Elsie Dewey M.D. Discharge Disposition: Home or Self Care 10/29/2023 1:43 PM CDT - 10/29/2023 11:59 PM CDT Hospital Encounter Department of Radiation Oncology in [address] [address] Elsie Dewey M.D. Malignant Neoplasm Of Lung Right (HCC) Discharge Disposition: Home or Self Care 10/29/2023 1:43 PM CDT - 10/29/2023 11:59 PM CDT Hospital Encounter Department of Radiation Oncology in [address] [address] Elsie Dewey M.D. Discharge Disposition: Home or Self Care 10/28/2023 1:12 PM CDT - 10/28/2023 11:59 PM CDT Hospital Encounter Department of Radiation Oncology in [address] [address] Elsie Dewey M.D. Discharge Disposition: Home or Self Care 10/25/2023 1:20 PM CDT - 10/25/2023 11:59 PM CDT Hospital Encounter Department of Radiation Oncology in [address] [address] Elsie Dewey M.D. Discharge Disposition: Home or Self Care 10/24/2023 1:20 PM CDT - 10/24/2023 11:59 PM CDT Hospital Encounter Department of Radiation Oncology in [address] [address] Elsie Dewey M.D. Discharge Disposition: Home or Self Care 10/23/2023 1:31 PM CDT - 10/23/2023 11:59 PM CDT Hospital Encounter Department of Radiation Oncology in [address] [address] Elsie Dewey M.D. Discharge Disposition: Home or Self Care 10/22/2023 1:47 PM CDT - 10/22/2023 4:15 PM CDT Hospital Encounter Department of Radiation Oncology in [address] [address] Elsie Dewey M.D. Malignant Neoplasm Of Lung Right (HCC) 10/22/2023 1:45 PM CDT - 10/22/2023 1:46 PM CDT Hospital Encounter Department of Radiation Oncology in [address] [address] Elsie Dewey M.D. Discharge Disposition: Home or Self Care 10/21/2023 1:23 PM CDT - 10/21/2023 11:59 PM CDT Hospital Encounter Department of Radiation Oncology in [address] [address] Elsie Dewey M.D. Discharge Disposition: Home or Self Care 10/18/2023 1:16 PM CDT - 10/18/2023 11:59 PM CDT Hospital Encounter Department of Radiation Oncology in [address] [address] Elsie Dewey M.D. Discharge Disposition: Home or Self Care 10/17/2023 1:22 PM CDT - 10/17/2023 11:59 PM CDT Hospital Encounter Department of Radiation Oncology in [address] [address] Elsie Dewey M.D. Discharge Disposition: Home or Self Care 10/16/2023 1:11 PM CDT - 10/16/2023 11:59 PM CDT Hospital Encounter Department of Radiation Oncology in [address] [address] Elsie Dewey M.D. Discharge Disposition: Home or Self Care 10/15/2023 1:18 PM CDT - 10/15/2023 3:57 PM CDT Hospital Encounter Department of Radiation Oncology in [address] [address] Elsie Dewey M.D. Malignant Neoplasm Of Lung Right (HCC) 10/15/2023 1:18 PM CDT - 10/15/2023 11:59 PM CDT Hospital Encounter Department of Radiation Oncology in [address] [address] Elsie Dewey M.D. Discharge Disposition: Home or Self Care 10/14/2023 1:16 PM CDT - 10/14/2023 11:59 PM CDT Hospital Encounter Department of Radiation Oncology in [address] [address] Elsie Dewey M.D. Discharge Disposition: Home or Self Care 10/11/2023 1:00 PM CDT - 10/11/2023 11:59 PM CDT Hospital Encounter Department of Radiation Oncology in [address] [address] Elsie Dewey M.D. Discharge Disposition: Home or Self Care 10/10/2023 1:10 PM CDT - 10/10/2023 11:59 PM CDT Hospital Encounter Department of Radiation Oncology in [address] [address] Elsie Dewey M.D. Discharge Disposition: Home or Self Care 10/09/2023 1:08 PM CDT - 10/09/2023 11:59 PM CDT Hospital Encounter Department of Radiation Oncology in [address] [address] Elsie Dewey M.D. Discharge Disposition: Home or Self Care 10/08/2023 1:54 PM CDT - 10/08/2023 4:49 PM CDT Hospital Encounter Department of Radiation Oncology in [address] [address] Elsie Dewey M.D. Malignant Neoplasm Of Lung Right (HCC) 10/08/2023 1:45 PM CDT - 10/08/2023 1:53 PM CDT Hospital Encounter Department of Radiation Oncology in [address] [address] Elsie Dewey M.D. Discharge Disposition: Home or Self Care 10/07/2023 10:03 AM CDT - 10/07/2023 11:59 PM CDT Hospital Encounter Department of Radiation Oncology in [address] [address] Elsie Dewey M.D. Discharge Disposition: Home or Self Care 10/04/2023 1:18 PM CDT - 10/04/2023 11:59 PM CDT Hospital Encounter Department of Radiation Oncology in [address] [address] Elsie Dewey M.D. Discharge Disposition: Home or Self Care 10/03/2023 1:19 PM CDT - 10/03/2023 11:59 PM CDT Hospital Encounter Department of Radiation Oncology in [address] [address] Elsie Dewey M.D. Discharge Disposition: Home or Self Care 10/02/2023 1:00 PM CDT - 10/02/2023 11:59 PM CDT Hospital Encounter Department of Radiation Oncology in [address] [address] Elsie Dewey M.D. Discharge Disposition: Home or Self Care 10/01/2023 1:45 PM CDT - 10/01/2023 11:59 PM CDT Hospital Encounter Department of Radiation Oncology in [address] [address] Elsie Dewey M.D. Discharge Disposition: Home or Self Care 10/01/2023 1:44 PM CDT Hospital Encounter Department of Radiation Oncology in [address] [address] Elsie Dewey M.D. Malignant Neoplasm Of Lung Right (HCC) 10/01/2023 Clinical Communication Department of Radiation Oncology in [address] [address] Elsie Dewey M.D. 10/01/2023 Documentation Department of Oncology in [address] [address] Willow Smith P.A.-C., P.A. 09/30/2023 1:24 PM CDT - 09/30/2023 1:26 PM CDT Hospital Encounter Department of Radiation Oncology in [address] [address] Elsie Dewey M.D. Discharge Disposition: Home or Self Care 09/27/2023 12:34 PM CDT - 09/27/2023 11:59 PM CDT Hospital Encounter Department of Radiation Oncology in [address] [address] Elsie Dewey M.D. Discharge Disposition: Home or Self Care 09/26/2023 12:35 PM CDT - 09/26/2023 2:44 PM CDT Hospital Encounter Department of Radiation Oncology in [address] [address] Elsie Dewey M.D. Retterath, Chelsey A, R.N. Malignant Neoplasm Of Lung Right (HCC) 09/26/2023 12:35 PM CDT - 09/26/2023 11:59 PM CDT Hospital Encounter Department of Radiation Oncology in [address] [address] Elsie Dewey M.D. Discharge Disposition: Home or Self Care 09/25/2023 12:34 PM CDT - 09/25/2023 11:59 PM CDT Hospital Encounter Department of Radiation Oncology in [address] [address] Elsie Dewey M.D. Discharge Disposition: Home or Self Care 09/24/2023 9:00 AM CDT - 09/24/2023 11:59 PM CDT Hospital Encounter Department of Radiation Oncology in [address] [address] Elsie Dewey M.D. Discharge Disposition: Home or Self Care 09/24/2023 8:42 AM CDT - 09/24/2023 8:59 AM CDT Hospital Encounter Department of Radiation Oncology in [address] [address] Elsie Dewey M.D. Malignant Neoplasm Of Lung Right (HCC) 09/23/2023 1:23 PM CDT - 09/23/2023 11:59 PM CDT Hospital Encounter Department of Radiation Oncology in [address] [address] Elsei Dewey M.D. Discharge Disposition: Home or Self Care 09/23/2023 [place] [address] [place] [address] Provider, Historical 09/11/2023 12:30 PM CDT - 09/11/2023 3:09 PM CDT Hospital Encounter Department of Radiation Oncology in [address] [address] Elsie Dewey M.D. Malignant Neoplasm Of Lung Right (HCC) 09/11/2023 12:06 PM CDT - 09/13/2023 3:24 PM CDT Hospital Encounter Department of Radiation Oncology in [address] [address] Elsie Dewey M.D. Grieman, Kari A, R.N. Malignant Neoplasm Of Lung Right (HCC) (Primary Dx); Malignant Neoplasm Of Lung Left (HCC) 09/10/2023 Clinical Communication Department of Radiation Oncology in [address] [address] Albertina Stiles APRN, C.N.P., D.N.P. Results 09/10/2023 Tumor Board Conference Department of Radiation Oncology in [place], [place] [address] [place] [address] Elsie Dewey M.D. 09/09/2023 2:53 PM CDT - 09/09/2023 4:42 PM CDT Hospital Encounter Department of Radiation Oncology in [place], [place] [address] [place] [address] Elsie Dewey M.D. Malignant Neoplasm Of Lung Left (HCC) (Primary Dx); Malignant Neoplasm Of Lung Right (HCC) 09/09/2023 Orders Only Division of Pulmonary Medicine in [place], [place] [address] [place] [address] Nilo Pickett APRN, C.N.P., D.N.P. Malignant Neoplasm Of Lung Adenocarcinoma Right (HCC) (Primary Dx) from Last 3 Months Immunizations Name Administration [...] declined 10/31/2022 How often do you attend spiritism or anabaptist serv ices? Never 10/31/2022 Do you belong to any clubs o r organizations such as spiritism groups, unions, fraternal or athletic groups, or [...] and heating? Not hard at all 10/31/2022 [facility] - Occupational [...] Sign Reading Time Taken Comments Blood Pressure 164/80 10/29/2023 2:01 PM CDT Pulse 82 10/29/2023 2:01 PM CDT Temperature 36.5 ??C (97.7 ??F) 10/29/2023 2:01 PM CD T Respiratory Rate 18 10/01/2023 2:20 PM CDT Oxygen Saturation 98% 10/01/2023 2:20 PM CDT Inhaled Oxygen Concentration - - Weight 60.7 kg (133 lb 13.1 oz) 10/29/2023 2:01 PM CDT Height 157.5 cm (5' 2) 09/05/2023 6:11 AM CDT Body Mass Index 24.48 09/05/2023 6:11 AM CDT Plan of Treatment Upcoming Encounters Date Type Department Care Team (Late st Contact Info) Description 12/17/2023 3:30 PM CDT Appointment Department of Radiation Oncology in [place], [place] [address] [place] [phone] Elsie Dewey M.D. [address] [place] [address] Health Maintenance Due Date Last Done Comments Bone Density Scan (Osteoporosis Screen) 1949 CT Colonography 1950 Cologuard 1950 FIT 1950 Hepatitis C Screening 1950 Mammogram 11/24/2013 11/24/2012 (Perf ormed elsewhere), 10/15/2012 (Performed elsewhere), 10/16/2011 (Performed elsewhere) Colonoscopy 01/15/2022 01/16/2012 Colorectal Cancer Screening 01/15/2022 DTaP,Tdap,and Td Vaccines (2 - Td or Tdap) 10/16/2022 10/16/2012 COVID-19 Vaccine (2022- season) 2023 03/28/2023, 04/02/2022, 04/20/2021, Additional history exists Depression Screening (Annual PHQ-2) 06/17/2023 Thyroid Stimulating Hormone (TSH) test for thyroid function 03/28/2024 03/28/2023, 05/28/2022, 04/14/2021, Additional history exists Fasting Glucose for Diabetes Screening 09/03/2026 09/04/2023, 03/29/2023, 03/28/2023, Additional history exists Zoster Vaccines Completed 12/01/2018, 09/30/2018 Pneumococcal vaccine (65+ years) Completed 05/28/2022, 02/13/2016, 12/10/2013 Influenza Vaccine Completed 03/28/2023, , 04/20/2021, Additional history exists Fall Risk Screen (Annual) Completed 09/26/2023 HPV Vaccines Aged Out No longer eligi ble based on patient's age to complete this topic Procedures Procedure Name Priority Date/Time Associated Diagnosis Comments ARIA DAILY TREATMENT INFORMATION Routine 11/01/2023 1:35 PM CDT ARIA DAILY TREATMENT INFORMATION Routine 10/31/2023 1:41 PM CDT ARIA DAILY TREATMENT INFORMATION Routine 10/30/2023 1:45 PM CDT ARIA DAILY TREATMENT INFORMATION Routine 10/29/2023 1:54 PM CDT ARIA DAILY TREATMENT INFORMATION Routine 10/28/2023 1:24 PM CDT ARIA DAILY TREATMENT INFORMATION Routine 10/25/2023 1:43 PM CDT ARIA DAILY TREATMENT INFORMATION Routine 10/24/2023 1:52 PM CDT ARIA DAILY TREATMENT INFORMATION Routine 10/23/2023 1:42 PM CDT ARIA DAILY TREATMENT INFORMATION Routine 10/22/2023 1:58 PM CDT ARIA DAILY TREATMENT INFORMATION Routine 10/21/2023 1:33 PM CDT ARIA DAILY TREATMENT INFORMATION Routine 10/18/2023 1:38 PM CDT ARIA DAILY TREATMENT INFORMATION Routine 10/17/2023 1:40 PM CDT ARIA DAILY TREATMENT INFORMATION Routine 10/16/2023 1:39 PM CDT ARIA DAILY TREATMENT INFORMATION Routine 10/15/2023 1:51 PM CDT ARIA DAILY TREATMENT INFORMATION Routine 10/14/2023 1:43 PM CDT ARIA DAILY TREATMENT INFORMATION Routine 10/11/2023 1:41 PM CDT ARIA DAILY TREATMENT INFORMATION Routine 10/10/2023 1:44 PM CDT ARIA DAILY TREATMENT INFORMATION Routine 10/09/2023 1:19 PM CDT ARIA DAILY TREATMENT INFORMATION Routine 10/08/2023 2:11 PM CDT ARIA DAILY TREATMENT INFORMATION Routine 10/07/2023 10:15 AM CDT ARIA DAILY TREATMENT INFORMATION Routine 10/04/2023 2:11 PM CDT ARIA DAILY TREATMENT INFORMATION Routine 10/03/2023 1:35 PM CDT ARIA DAILY TREATMENT INFORMATION Routine 10/02/2023 1:[address] BODY Routine 10/02/2023 12:00 PM CDT ARIA DAILY TREATMENT INFORMATION Routine 10/01/2023 2:11 [...] CDT Malignant Neoplasm Of Lung Right (HCC) COMPREHENSIVE METABOLIC PANEL, S/P Routine 09/04/2023 12:11 PM CDT Malignant Neoplasm Of Lung Left (HCC) Nodules Pulmonary Multiple Lymphadenopathy Mediastinum Abnormal Positron Emission Tomography Scan EXTI THYROID-STIMULATING HORMONE-SENSITIVE (S-TSH), S Routine 03/28/2023 1:16 PM CDT from Last 3 Months or Most Recently Relevant to Health Maintenance Results * Aria Daily Treatment Information (11/01/2023 1:35 PM CDT) Only the most recent of30 resultswithin the time period is included. Course ID 2xLung MENDOZA ARIA Course Start Date 4 15:26 CDT MENDOZA ARIA First Treatment Date 4 14:04 CDT MENDOZA ARIA Last Treatment Date 4 13:35 CDT MENDOZA ARIA Treatment Elapsed Days 39 MENDOZA ARIA Reference Point [id number] MENDOZA ARIA Dosage Given to Date cGy 6000 MENDOZA ARIA Session Dosage Given 200 MENDOZA ARIA Plan ID [id number] MENDOZA ARIA Fractions Treated to Date 30 MENDOZA ARIA Planned Total Fractions 30 MENDOZA ARIA Prescribed Dose Per Fraction 200 MENDOZA ARIA Prescription Dose in cGy 6000 MENDOZA ARIA Plan Primary Reference Point [id number] MENDOZA ARIA 11/01/2023 1:35 PM CDT Provider Not In System RADIATION ONCOLOG Y ORDERABLES REJI SANDOVAL na * CT Angio Chest PE Protocol-Outside CT Body (10/02/2023 12:00 PM CDT) 10/02/2023 11:5 9 AM CDT Narrative IILA - 10/02/2023 2:25 PM CDT This order has been created and auto-finalized to support the import of outside images. If available, original interpretation can be found on the Media Tab in Chart Review, in Document Viewer, or as an image in QREADS. If a re-interpretation or overread is required please follow defined workflow. ?? Provider Not In System IMG CT PROCEDURES [facility] NA * Initial Rad Onc Treatment Planning CT Simulation (09/11/2023 1:00 PM CDT) Narrative REJI PLUMMERA - 09/11/2023 1:00 PM CDT Ese Castaneda, RTT ? 09/11/2023 ??1:10 PM Initial Rad Onc Treatment Planning CT Simulation Performed by: Elsie Dewey M.D. Authorized by: Elsie Dewey M.D. ?? Elsie Dewey M.D. RADIATION ONCOLOG Y ORDERABLES REJI ortez * (ABNORMAL) Comprehensive Metabolic Panel (09/04/2023 12:11 PM CDT) Pathologist [facility] Potassium, S 4.4 3.6 - 5.2 mmol/L [...] APRN, C.N.P., D.N.P. 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 See document viewer. Healthcare Agents on File Name Relationship Healthcare Agent Relationship Communication Dario Henderson Spouse Health Care Agent Anita Fuentes Daughter First Domenico te Health Care Agent
--- OUTSIDE RECORDS SUMMARY | 2023-12-09 10:11 | XMS_ITS | Encounter Summary ---
Author Organization [facility] Address [address] [place] [address] Care Team Providers Care Business Analytics Faculty Member Name Role Phone Unavailable Primary Care Provider Unavailabl e Reason for Referral * Outpatient (Routine) - Authorized Specialty Diagnoses / Procedures Referred By Contac t Referred To Contact Radiation Oncology Elsie eDwey M.D. [address] [place] [address] [facility] Region Referral ID Status Reason Start Date Expiration Date V isits Requested Visits Authorized [id number] Authorized 12/02/2023 06/02/2025 1 1 Scheduling Instructions YIG soon after December 12, 2023 (CT at [facility] on December 08, Stephen December 11) * Radiation Therapy (Routine) - Authorized Specialty Diagnoses / Procedures Referred By Contac t Referred To Contact Diagnoses Malignant Neoplasm Of Lung Right (HCC) Procedures Management Visit Elsie Dewey M.D. [address] [place] [phone] [facility] Region Referral ID Status Reason Start Date Expiration Date V isits Requested Visits Authorized [id number] Authorized 09/09/2023 09/08/2024 10 10 Reason for Visit * Radiation Therapy (Routine) - Authorized Specialty Diagnoses / Procedures Referred By Ervin frye Referred To Contact Diagnoses Malignant Neoplasm Of Lung Right (HCC) Procedures Management Visit Elsie Dewey M.D. [address] [place] [address] [facility] Region Referral ID Status Reason Start Date Expiration Date V isits Requested Visits Authorized [id number] Authorized 09/09/2023 09/08/2024 10 10 Encounter Details Date Type Department Care Team (Latest Contact Info) Description 10/29/2023 1:43 PM CDT - 10/29/2023 11:59 PM CDT Hospital Encounter Department of Radiation Oncology in [place], [place] [address] [place] [phone] Elsie Dewey M.D. [address] [place] [address] Malignant Neoplasm Of Lung Right (HCC) Discharge Disposition: Home or Self Care Social [...] declined 10/31/2022 How often do you attend baptism or episcopal serv ices? Never 10/31/2022 Do you belong to any clubs o r organizations such as baptism groups, unions, fraternal or athletic groups, or [...] and heating? Not hard at all 10/31/2022 [facility] [place] [facility] Occupat ional Health - Occupational Stress [...] 10/29/2023 2:01 PM CD T Respiratory Rate - - Oxygen Saturation - - Inhaled Oxygen Concentration - - Weight 60.7 kg (133 lb 13.1 oz) 10/29/2023 2:01 PM CDT Height - - Body Mass Index 24.48 09/05/2023 6:11 AM CDT documented in this [...] Progress Notes * Elsie Dewey M.D. - 10/29/2023 2:00 PM CDT ATTESTATION FOR MANAGEMENT VISIT I saw and evaluated the patient and participated in the eubanks portions of the service as noted below.I reviewed the documentation of Ms. Bella Win RN and agree with the findings and plan. The patient appears well on exam. We will continue with radiation as planned and we anticipate that she willcomplete treatments this week. We anticipate that Mrs. Anila Henderson will complete radiation treatment as planned without interruptions. The course of treatment was tolerated well. The patient experienced toxicities of grade 1 fatigue during radiation treatment. Follow-up will be with me and Dr. Mitchell in 1 month. Elsie Dewey M.D., 10/29/2023 - SUBJECTIVE REASON FOR VISIT Evaluation for side [...] under the care of Dr. Mitchell at [facility]. Chemotherapy held on October 01, 2023 due to chesttightness. Patient declined ER visit and was seen by primary care provider same day. Patient was then evaluated at [facility] ER on October 02, 2023 and small PE noted, Eliquis started. Chemotherapy restarted on October 08, 2023. Treatment Course: 2xLung Plan ID Fractions Dose / Fraction (cGy) Dose Treated (cGy) Dose Planned (cGy) First Treatment Last Treatment Elapsed Days [id number] / 200 5400 6000 09/23/2023 10/29/2023 36 Course Summary 09/23/2023 10/29/2023 36 The patient was seen and examined today with Dr. Dewey. Patient reports to be feeling well overall. She denies chest pain or discomfort. Patient denies esophageal pain, dysphagia, hemoptysis, nausea, vomiting, fevers, chills, changes to baseline SOB or cough. She reports to be eating and drinking well and has no new issues or concerns at this time. Patients fatigue with treatments. Weight September 24, 2023: 59.0 starting weight October 01, 2023: 59.2 kg October 08, 2023: 59.4 kg October 15, 2023: 59.9 kg October 22, 2023: 60.3 kg October 29, 2023: 60.7 kg PATIENT REPORTED SYMPTOM SCREEN FATIGUE (Scale: 0 = no fatigue; 10 = worst fatigue you can imagine): 9 PAIN (Scale: 0 = no pain; 10 = worst pain you can imagine): 1 OVERALL QUALITY OF LIFE (Scale: 0 = as bad as can be; 10 = as good as can be): 10 OBJECTIVE BP (!) 164/80 (BP Location: Left arm, Patient Position: Sitting, Cuff Size: Regular) Pulse 82 Temp 36.5 ??C (Temporal) Wt 60.7 kg BMI 24.48 kg/m?? PHYSICAL EXAM General: Alert and oriented [...] of completion is on November 01, 2023 #5 October 02, 2023 small pulmonary embolism noted in right apical segmental artery on chest CT imaging at [facility] ER Patient reports to be feeling well overall. Weight remains stable. She did receive chemotherapy today prior to her visit here in clinic. Chemotherapy is being managed by Dr. Mitchell at [facility]. Patient reports that CT has been scheduled for November 29, 2023. Patient also reports followwith Dr. Mitchell is being scheduled for December 12, 2023. Dr. Dewye will see patient in follow up soonafter imaging has been completed at [facility]. Patient will be receiving last cycle of chemotherapy next week per Dr. Mitchell's recommendation. She will contact us with any questions or concerns. We will continue with radiation treatment as planned. Toxicities reviewed with Dr. Dewey today. Signed by: Bella Win R.N. 10/29/2023 2:25 PM CDT documented in this encounter Miscellaneous Notes * Addendum Note - Elsie Dewey M.D. - 10/29/2023 2:00 PM CDTEncounter addended by: Elsie Dewey M.D. on: 12/02/2023 3:32 PM Actions taken: Order list changed, Clinical Note Signed, Flowsheet accepted documented in this encounter Plan of Treatment Upcoming Encounters Date Type Department Care Team (Late st Contact Info) Description 12/17/2023 3:30 PM CDT Appointment Department of Radiation Oncology in [place], [place] [address] [place] [address] Elsie Dewey M.D. [address] [place] [address] Scheduled Orders Name Type Priority Associated Diagnoses Orde r Schedule Management Visit Radiation Oncology Routine Malignant Neoplasm Of Lung Right (HCC) Once for 1 Occurrences starting 10/29/2023 until 10/29/2023 Scheduled Referrals Name Type Priority Associated Diagnoses Orde r Schedule Radiation Oncology office visit (clinic) Outpatient Referral Routine Expected: 12/09/2023 (Approximate), Expires: 10/28/2024 documented as of this encounter Visit Diagnoses Diagnosis Malignant Neoplasm Of Lung Right (HCC) documented in this encounter
--- OUTSIDE RECORDS SUMMARY | 2023-12-09 10:11 | XMS_ITS | Clinical Summary ---
Author Organization [facility] Address [place], [place] [address] Care Team Providers Care Hot Punch Press Operator Name Role Phone Marbella Heart Primary Care Provider Allergies Active Allergy Reactions Criticality Noted Date Comments Aspirin Bleeding 03/21/2012 Atenolol Rash 02/24/2018 Penicillins *Unknown - Pt Doesn't Remember 09/16 Medications Medication Sig Dispensed Refills Start Date End Date Status multivitamin (MVI) tablet Take 1 tablet by mouth once daily. 0 10/12/2011 Active medication order composer Jomar soto, powder form, 1 scoop daily 08/24/2020 Active albuterol HFA (PRO-AIR; VENTOLIN; PROVENTIL) 90 mcg/actuation inhalerIndications:Chr onic obstructive pulmonary disease, unspecified COPD type (HC) Inhale 1-2 Puffs by mouth every 4 hours if needed for Shortness Of Breath or Wheezing (cough). 1 Each 2 12/27/2022 Active levothyroxine (SYNTHROID) 75 mcg tabletIndications:Hypo thyroidism (acquired) TAKE ONE TABLET BY MOUTH EVERY DAY 90 Tablet 2 05/26/2023 Active sertraline (ZOLOFT) 50 mg tabletIndications:Depr ession, unspecified depression type TAKE ONE TABLET BY MOUTH EVERY DAY 90 Tablet 2 05/26/2023 Active simvastatin (ZOCOR) 40 mg tabletIndications:Hype rlipidemia, unspecified hyperlipidemia type TAKE ONE TABLET BY MOUTH AT BEDTIME 90 Tablet 2 05/26/2023 Active fluticasone abx-thdpzzlzijvw-tucco terol (Trelegy Ellipta) 100-62.5-25 mcg inhalerIndications:Chr onic obstructive pulmonary disease, unspecified COPD type (HC) Inhale 1 Puff by mouth once daily. 180 Each 3 07/01/2023 Active apixaban (ELIQUIS) 5 mg tabletIndications:Cere brovascular accident (CVA) due to embolism of left middle cerebral artery (HC),Adenocarcinoma of left lung (HC),Anticoagulation monitoring, INR range 2-3 Take 1 Tablet (5 mg) by mouth two times daily. 60 Tablet 5 10/07/2023 Active Active Problems Problem Noted Date Diagnosed Date Adenocarcinoma of left lung 07/09/2018 Wears glasses 03/13/2018 Overview: Follows at [facility]. Hypothyroidism (acquired) 09/09/2017 Hyperlipidemia 08/25/2014 Depression 08/25/2014 COPD (chronic obstructive pulmonary disease) 04/2015 HTN (hypertension) 03/21/2012 Cerebrovascular accident (CV A) due to embolism of left middle cerebral artery 10/04/2011 Resolved Problems Problem Noted Date Diagnosed Date Resolved Date Pneumonia of right middle lo be due to infectious organism 08/15/2015 12/30/2017 Anticoagulation monitoring, INR range 2-3 10/04/2011 10/11/2023 Overview: Ok for every 6 weeks. See telephone enc dated 08/25/14. Anticoagulation JOSE- 11/06/17 WANTS TO STAY 6 WKS INR NURSE VISITS Verbal messages may be left for anticoagulation result, dosing, and instructions. Nina Mcmanus RN .................... 11/06/2017 2:05 PM Encounters Date Type Department Care Team Description 10/11/[address] [address] Marbella Heart DO Anticoagulation (Chart update) 10/04/[address] [address] Marbella Heart DO Refill Request (Eliquis ) 10/02/2023 Orders Only [facility] Scanner 1 scan: (1-Ord) [facility], ANGIO CHEST PE PROTOCOL, 10/02/2023 10/02/2023 Orders Only [facility] Scanner 1 scan: (1-Ord) [facility], CT ANGIO CHEST PE PROTOCOL , 10/02/2023 10/01/2023 12:50 PM CDT Office Visit [address] [address] Amrita Henriquez NP Follow Up (After chemo infusions, iron low and blood pressure elevated) 10/01/2023 Travel 09/23/2023 8:00 AM CDT Office Visit [facility] at [address] [address] Ese Amaral MD 09/23/2023 Orders Only [facility] Scanner 1 scan: (1-Ord) [facility], XR CHEST 1V, 09/23/2023 09/23/2023 Orders Only [facility] Scanner 1 scan: (1-Ord) [facility], RT IJ PORT PLACEMENT W US AND FLUOROSCOPIC GUIDANCE, 09/23/2023 09/20/[address] [address] Marbella Heart DO Questions 09/18/2023 11:30 AM CDT Preop Visit [address] [address] Marbella Heart DO Pre-Op Exam (port placement 0408/24 [facility] discuss going off warfrin) 09/18/2023 Travel 09/13/[address] [place] [address] Marbella Heart DO Referral (Port Placement order) 09/13/[address] [address] Marbella Heart DO Procedure (PORT PLACEMENT) from Last 3 Months Immunizations Name Administration Dates Next Due COVID-19 Vaccine Spikevax (M oderna 50mcg/0.5mL) 12YO+ [id number] Formula PF 03/28/2023 COVID-19 vaccine ([employer] NTech 30mcg/0.3mL) 12YO+ BIVALENT PF, MDV 04/02/2022 COVID-19 vaccine (Pfizer-Bio NTech 30mcg/0.3mL) PF, MDV 04/20/2021,09/10/2020,08/20/2020 Influenza, High-dose [...] T Respiratory Rate 16 06/20/2023 3:30 PM BUMPER OPERATOR Oxygen Saturation 93% 10/01/2023 12:52 PM CDT [...] 10/30/2021, Additional history exists Fecal testing sDNA-FIT ([place] guard) for age 45-75 09/27/2024 09/27/2021 BMI [...] Procedure Name Priority Date/Time Associated Diagnosis Comments SCAN-CT INTERPRETATION 12:00 AM CDT SCAN-ANGIOGRAM 10/02/2023 12:00 AM CDT SCAN-RADIOLOGY REPORT 09/23/2023 12:00 AM CDT SCAN-OPERATIVE/PROCEDU RE REPORT 09/23/2023 12:[address] CHEST WO KELLIE 2023 2:09 PM BUMPER OPERATOR Acute left-sided thoracic back pain Adenocarcinoma of left lung (HC) LIPID PANEL W REFLEX MEASURED LDL Routine 03/28/2023 1:16 PM CDT HTN (hypertension) Cerebrovascular accident (CVA) due to embolism of left middle cerebral artery (HC) Other hyperlipidemia XR MAMMO BILAT SCREENING Routine 04/23/2022 10:11 AM BUMPER OPERATOR Encounter for screening mammogram for malignant neoplasm of breast FECAL DNA (AKA COLOGUARD) Routine 09/27/2021 12:00 AM CDT Screening for colon cancer ANTI HCV Routine 03/13/2019 3:42 PM CDT Need for hepatitis C screening test XR DXA BONE DENSITY 2 SITES AXIAL Routine 09/10/2016 2:54 PM CDT Asymptomatic postmenopausal state from Last 3 Months or Most Recently Relevant to Health Maintenance Results * SCAN-ANGIOGRAM (10/02/2023 12:00 AM CDT) Anatomical Region Laterality Modality Other Scanner OTHER * SCAN-CT INTERPRETATION (10/02/2023 12:00 AM CDT) Anatomical Region Laterality Modality Other Scanner OTHER * SCAN-RADIOLOGY REPORT (09/23/2023 12:00 AM CDT) Anatomical Region Laterality Modality Other Scanner OTHER * SCAN-OPERATIVE/PROCEDURE REPORT (09/23/2023 12:00 AM CDT) Scanner OTHER * CT CHEST WO (2023 2:09 PM BUMPER OPERATOR) Anatomical Region Laterality Modality CHEST, THORAX, HEART Computed To mography 06/22/2023 1:16 AM BUMPER OPERATOR Addenda Addendum by Janna oWod MD on 07/17/2023 11:15 AM BUMPER OPERATOR For Patients: ??As a result of the [...] (Electronically Signed) ?? Impressions 06/22/2023 1:16 AM BUMPER OPERATOR 1. No etiology seen to explain left [...] AM (Electronically Signed) Narrative 06/22/2023 1:16 AM BUMPER OPERATOR For Patients: ??As a result of the Century Cures Act, [...] - 199 mg/dL 03/28/2023 2:56 PM CDT [facility] Comment: Cholesterol, Total Reference Ranges Desirable <200 mg/dL Borderline 200-239 mg/dL High >=240 mg/dL TRIGLYCERIDES 150(H) <150 mg/dL 03/28/2023 2:56 PM CDT [facility] HDL CHOLESTEROL 66 >40 mg/dL 2:56 PM CDT [facility] NON-HDL CHOLESTEROL 101 <145 mg/dl 03/28/2023 2:56 PM CDT [facility] CHOL/HDL RATIO 2.53 <4.50 03/28/2023 2:56 PM CDT [facility] LDL CHOLESTEROL 71 <=130 mg/dL 03/28/2023 2:56 PM T [facility] VLDL CHOLESTEROL 30 <=30 mg/dL 03/28/2023 2:56 PM T [facility] PROVIDER ORDERED STATUS RANDOM 03/28/2023 2:56 PM T [facility] Blood BLOOD SPECIMEN / Unknown Venipuncture / Unknown 03/28/2023 1:16 PM CDT 03/28/2023 1:17 PM CDT Marbella Heart DO CHEMISTRY [facility] [address] [place] [address] * XR MAMMO BILAT SCREENING (04/23/2022 10:11 AM BUMPER OPERATOR) Anatomical Region Laterality Modality BREASTS, Breast Left, Breast Right Bilateral Mammography Impressions 04/23/2022 11:55 AM BUMPER OPERATOR ??There is no radiographic evidence for malignancy. ??Recommend annual mammograms. MAMMOGRAM ASSESSMENT: ??ACR 1 Negative PATIENTS: You will also receive a letter with your examination results in an easy to read format. ??If you have questions about your results, please contact your referring provider. Narrative 04/23/2022 11:55 AM BUMPER OPERATOR For Patients: As a result of the Century Cures Act, medical imaging exams and procedure reports are released immediately into your electronic medical record. You may view this report before your referring provider. If you have questions, please contact your health care provider. XR MAMMO BILAT SCREENING [[id number]] CLINICAL HISTORY: ??This is an asymptomatic 71 [...] thanh Non-React thanh 03/13/2019 11:[address] [facility] Comment:Antibodies to HCV no t detected; does not exclude the possibility of exposure to HCV. Blood BLOOD SPECIMEN / Unknown Venipuncture / Unknown 03/13/2019 3:42 PM CDT 03/13/2019 3:42 PM CDT Marbella Heart DO [facility]END OUTS [facility] [address] [place] [address], [place] * XR DXA BONE DENSITY 2 SITES AXIAL (09/10/2016 2:54 PM CDT) Anatomical Region Laterality Modality Spine, HIPS, HIPL, HIPR Bone Den sitometry Narrative 09/12/2016 8:48 AM CDT Please see scanned document for results of this study. Marbella Heart DO DEXA from Last 3 Months or Most Recently Relevant to Health Maintenance Advance Directives Documents on File Type Date Recorded Patient Freight Flagman Expl anation Healthcare Directive 09/17/2023 024 Healthcare Directive 06/30/2012 2:01 PM AD SHAFFER DIRECTIVE, 06/30/2012 Care Teams Hot Punch Press Operator Relationship Specialty Start Date End Date Marbella Heart DO [address] [place], [place] [address]LENI Yao [id number] PCP - General Internal Medicine 08/25/14
--- OUTSIDE RECORDS SUMMARY | 2023-12-09 10:11 | XMS_ITS | Encounter Summary ---
Author Organization [facility] Address [address] [place] [address] Care Team Providers Care Diamond Grinder Name Role Phone Unavailable Primary Care Provider Unavailabl e Encounter Details Date Type Department Care Team (Latest Contact Info) Description 10/31/2023 1:24 PM CDT - 10/31/2023 11:59 PM CDT Hospital Encounter Department of Radiation Oncology in [place], [place] [address] [place] [phone] Elsie Dewey M.D. [address] [place] [address] Discharge Disposition: Home or Self Care Social [...] declined 10/31/2022 How often do you attend taoism or latter-day serv ices? Never 10/31/2022 Do you belong to any clubs o r organizations such as taoism groups, unions, fraternal or athletic groups, or [...] [facility] - [...] CDT Appointment Department of Radiation Oncology in [place], [place] [address] [place] [address] Elsie Dewey M.D. [address] [place] [address] documented as of this encounter Visit Diagnoses Not on filedocumented in this encounter
--- OUTSIDE RECORDS SUMMARY | 2023-12-09 10:11 | XMS_ITS | Referral Summary ---
Author Organization [facility] Address [address] [place] [address] Care Team Providers Care Beehive Kiln Supervisor Name Role Phone Unavailable Primary Care Provider Unavailabl e Source Comments Patient records contain information from all sites at [facility]. For routine questions regarding patient records, call [phone] during business hours, M-F 8:00 AM - 5:00 PM Central Time. Record requests for emergency care only can be directed to [phone] at any time.[facility] Encounters Date Type Department Care Team Description 11/01/2023 Documentation Department of Radiation Oncology in [address] [address] Elsie Dewey M.D. 11/01/2023 1:18 PM CDT - 11/01/2023 11:59 PM CDT Hospital Encounter Department of Radiation Oncology in [address] [address] Elsie Dewey M.D. Discharge Disposition: Home or Self Care 10/31/2023 1:24 PM CDT - 10/31/2023 11:59 PM CDT Hospital Encounter Department of Radiation Oncology in [address] [address] Elsie Dewey M.D. Discharge Disposition: Home or Self Care 10/30/2023 1:10 PM CDT - 10/30/2023 11:59 PM CDT Hospital Encounter Department of Radiation Oncology in [address] [address] Elsie Dewey M.D. Discharge Disposition: Home or Self Care 10/29/2023 1:43 PM CDT - 10/29/2023 11:59 PM CDT Hospital Encounter Department of Radiation Oncology in [address] [address] Elsie Dewey M.D. Malignant Neoplasm Of Lung Right (HCC) Discharge Disposition: Home or Self Care 10/29/2023 1:43 PM CDT - 10/29/2023 11:59 PM CDT Hospital Encounter Department of Radiation Oncology in [address] [address] Elsie Dewey M.D. Discharge Disposition: Home or Self Care 10/28/2023 1:12 PM CDT - 10/28/2023 11:59 PM CDT Hospital Encounter Department of Radiation Oncology in [address] [address] Elsie Dewey M.D. Discharge Disposition: Home or Self Care 10/25/2023 1:20 PM CDT - 10/25/2023 11:59 PM CDT Hospital Encounter Department of Radiation Oncology in [address] [address] Elsie Dewey M.D. Discharge Disposition: Home or Self Care 10/24/2023 1:20 PM CDT - 10/24/2023 11:59 PM CDT Hospital Encounter Department of Radiation Oncology in [address] [address] Elsie Dewey M.D. Discharge Disposition: Home or Self Care 10/23/2023 1:31 PM CDT - 10/23/2023 11:59 PM CDT Hospital Encounter Department of Radiation Oncology in [address] [address] Elsie Dewey M.D. Discharge Disposition: Home or Self Care 10/22/2023 1:47 PM CDT - 10/22/2023 4:15 PM CDT Hospital Encounter Department of Radiation Oncology in [address] [address] Elsie Dewey M.D. Malignant Neoplasm Of Lung Right (HCC) 10/22/2023 1:45 PM CDT - 10/22/2023 1:46 PM CDT Hospital Encounter Department of Radiation Oncology in [address] [address] Elsie Dewey M.D. Discharge Disposition: Home or Self Care 10/21/2023 1:23 PM CDT - 10/21/2023 11:59 PM CDT Hospital Encounter Department of Radiation Oncology in [address] [address] Elsie Dewey M.D. Discharge Disposition: Home or Self Care 10/18/2023 1:16 PM CDT - 10/18/2023 11:59 PM CDT Hospital Encounter Department of Radiation Oncology in [address] [address] Elsie Dewey M.D. Discharge Disposition: Home or Self Care 10/17/2023 1:22 PM CDT - 10/17/2023 11:59 PM CDT Hospital Encounter Department of Radiation Oncology in [address] [address] Elsie Dewey M.D. Discharge Disposition: Home or Self Care 10/16/2023 1:11 PM CDT - 10/16/2023 11:59 PM CDT Hospital Encounter Department of Radiation Oncology in [address] [address] Elsie Dewey M.D. Discharge Disposition: Home or Self Care 10/15/2023 1:18 PM CDT - 10/15/2023 3:57 PM CDT Hospital Encounter Department of Radiation Oncology in [address] [address] Elsie Dewey M.D. Malignant Neoplasm Of Lung Right (HCC) 10/15/2023 1:18 PM CDT - 10/15/2023 11:59 PM CDT Hospital Encounter Department of Radiation Oncology in [address] [address] Elsie Dewey M.D. Discharge Disposition: Home or Self Care 10/14/2023 1:16 PM CDT - 10/14/2023 11:59 PM CDT Hospital Encounter Department of Radiation Oncology in [address] [address] Elsie Dewey M.D. Discharge Disposition: Home or Self Care 10/11/2023 1:00 PM CDT - 10/11/2023 11:59 PM CDT Hospital Encounter Department of Radiation Oncology in [address] [address] Elsie Dewey M.D. Discharge Disposition: Home or Self Care 10/10/2023 1:10 PM CDT - 10/10/2023 11:59 PM CDT Hospital Encounter Department of Radiation Oncology in [address] [address] Elsie Dewey M.D. Discharge Disposition: Home or Self Care 10/09/2023 1:08 PM CDT - 10/09/2023 11:59 PM CDT Hospital Encounter Department of Radiation Oncology in [address] [address] Elsie Dewey M.D. Discharge Disposition: Home or Self Care 10/08/2023 1:54 PM CDT - 10/08/2023 4:49 PM CDT Hospital Encounter Department of Radiation Oncology in [address] [address] Elsie Dewey M.D. Malignant Neoplasm Of Lung Right (HCC) 10/08/2023 1:45 PM CDT - 10/08/2023 1:53 PM CDT Hospital Encounter Department of Radiation Oncology in [address] [address] Elsie Dewey M.D. Discharge Disposition: Home or Self Care 10/07/2023 10:03 AM CDT - 10/07/2023 11:59 PM CDT Hospital Encounter Department of Radiation Oncology in [address] [address] Elsie Dewey M.D. Discharge Disposition: Home or Self Care 10/04/2023 1:18 PM CDT - 10/04/2023 11:59 PM CDT Hospital Encounter Department of Radiation Oncology in [address] [address] Elsie Dewey M.D. Discharge Disposition: Home or Self Care 10/03/2023 1:19 PM CDT - 10/03/2023 11:59 PM CDT Hospital Encounter Department of Radiation Oncology in [address] [address] Elsie Dewey M.D. Discharge Disposition: Home or Self Care 10/02/2023 1:00 PM CDT - 10/02/2023 11:59 PM CDT Hospital Encounter Department of Radiation Oncology in [address] [address] Elsie Dewey M.D. Discharge Disposition: Home or Self Care 10/01/2023 Clinical Communication Department of Radiation Oncology in [address] [address] Elsie Dewey M.D. 10/01/2023 Documentation Department of Oncology in [address] [address] Willow Smith P.A.-C., P.A. 10/01/2023 1:44 PM CDT Hospital Encounter Department of Radiation Oncology in [address] [address] Elsie Dewey M.D. Malignant Neoplasm Of Lung Right (HCC) 10/01/2023 1:45 PM CDT - 10/01/2023 11:59 PM CDT Hospital Encounter Department of Radiation Oncology in [address] [address] Elsie Dewey M.D. Discharge Disposition: Home or Self Care 09/30/2023 1:24 PM CDT - 09/30/2023 1:26 PM CDT Hospital Encounter Department of Radiation Oncology in [address] [address] Elsie Dewey M.D. Discharge Disposition: Home or Self Care 09/27/2023 12:34 PM CDT - 09/27/2023 11:59 PM CDT Hospital Encounter Department of Radiation Oncology in [address] [address] Elsie Dewey M.D. Discharge Disposition: Home or Self Care 09/26/2023 12:35 PM CDT - 09/26/2023 2:44 PM CDT Hospital Encounter Department of Radiation Oncology in [address] [address] Elsie Dewey M.D. Retterath, Chelsey A RGeetha Malignant Neoplasm Of Lung Right (HCC) 09/26/2023 12:35 PM CDT - 09/26/2023 11:59 PM CDT Hospital Encounter Department of Radiation Oncology in [address] [address] Elsie Dewey M.D. Discharge Disposition: Home or Self Care 09/25/2023 12:34 PM CDT - 09/25/2023 11:59 PM CDT Hospital Encounter Department of Radiation Oncology in [address] [address] Elsie Dewey M.D. Discharge Disposition: Home or Self Care 09/24/2023 8:42 AM CDT - 09/24/2023 8:59 AM CDT Hospital Encounter Department of Radiation Oncology in [address] [address] Elsie Dewey M.D. Malignant Neoplasm Of Lung Right (HCC) 09/24/2023 9:00 AM CDT - 09/24/2023 11:59 PM CDT Hospital Encounter Department of Radiation Oncology in [address] [address] Elsie Dewey M.D. Discharge Disposition: Home or Self Care 09/23/2023 [place], [place] [address] [place] [address] Provider, Historical 09/23/2023 1:23 PM CDT - 09/23/2023 11:59 PM CDT Hospital Encounter Department of Radiation Oncology in [address] [address] Elsie Dewey M.D. Discharge Disposition: Home or Self Care 09/11/2023 12:06 PM CDT - 09/13/2023 3:24 PM CDT Hospital Encounter Department of Radiation Oncology in [address] [address] Elsie Dewey M.D. Grieman, Kari A, RJessicaNJessica Malignant Neoplasm Of Lung Right (HCC) (Primary Dx); Malignant Neoplasm Of Lung Left (HCC) 09/11/2023 12:30 PM CDT - 09/11/2023 3:09 PM CDT Hospital Encounter Department of Radiation Oncology in [address] [address] Elsie Dewey M.D. Malignant Neoplasm Of Lung Right (HCC) 09/10/2023 Clinical Communication Department of Radiation Oncology in [address] [address] Albertina Stiles APRN C.N.Murtaza, D.N.P. Results 09/10/2023 Tumor Board Conference Department of Radiation Oncology in [address] [address] Elsie Dewey M.D. 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 Malignant Neoplasm Of Lung Left (HCC) (Primary Dx); Malignant Neoplasm Of Lung Right (HCC) from Last 3 Months Allergies Active Allergy [...] often do you attend jehovah's witness or jewish serv ices? Never 10/31/2022 Do you belong [...] and heating? Not hard at all 10/31/2022 [facility] - Occupational [...] place to sleep or slept in a usp (including now)? No 10/31/2022 Nutrition Answer Date [...] CDT Appointment Department of Radiation Oncology in [place], [place] [address] [place] [address] Elsie Dewey M.D. [address] [place] [address] Procedures Procedure Name Priority Date/Time Associated Diagnosis [...] Elapsed Days 39 MENDOZA ARIA Reference Point [id number] MENDOZA ARIA Dosage Given to Date cGy 6000 MENDOZA ARIA Session Dosage Given 200 MENDOZA ARIA Plan ID [id number] MENDOZA ARIA Fractions Treated to Date 30 MENDOZA ARIA Planned Total Fractions 30 MENDOZA ARIA Prescribed Dose Per Fraction 200 MENDOZA ARIA Prescription Dose in cGy 6000 MENDOZA ARIA Plan Primary Reference Point [id number] MENDOZA ARIA 11/01/2023 1:35 PM CDT Provider Not In System RADIATION ONCOLOG Y ORDERABLES REJI SANDOVAL na * CT Angio Chest PE Protocol-Outside CT Body (10/02/2023 12:00 PM CDT) 10/02/2023 11:5 9 AM CDT Narrative [facility] - 10/02/2023 2:25 PM CDT This order has been created and auto-finalized to support the import of outside images. If available, original interpretation can be found on the Media Tab in Chart Review, in Document Viewer, or as an image in QREADS. If a re-interpretation or overread is required please follow defined workflow. ?? Provider Not In System IMG CT PROCEDURES Performing Organization Address [facility] Co de Phone Number II NA * Initial Rad Onc Treatment Planning CT Simulation (09/11/2023 1:00 PM CDT) Narrative REJI SANDOVAL - 09/11/2023 1:00 PM CDT Ese Castaneda, RTT ? 09/11/2023 ??1:10 PM Initial Rad Onc Treatment Planning CT Simulation Performed by: Elsie Dewey M.D. Authorized by: Elsie Dewey M.D. ?? Elsie Dewey M.D. RADIATION ONCOLOG Y ORDERABLES Performing Organization Address [facility] de Phone Number REJI SANDOVAL na * (ABNORMAL) Comprehensive Metabolic Panel (09/04/2023 12:11 [...] APRN, C.N.P., D.N.P. L AB BLOOD ADD-ON [facility] [address] [place] [address], [facility] [place] [address] [place] [address] from Last 3 Months or Most Recently Relevant to Health Maintenance Advance Directives For more information, please contact: [phone] Documents on File Type Date Recorded Patient Maintenance Craftsman Expl anation Advance Directives 09/20/2023 6:06 PM Dario Clements enDonitito Fuentes HCPOA/ADVOCATE/AGENT/R EPRESENTATIVE/SURROGAT E Advance Directives 01/12/2013 12:00 AM Leg acy document. See document viewer. Healthcare Agents on File Name Relationship Healthcare Agent Relationship Communication Dario Henderson Spouse Health Care Agent Anita Fuentes Daughter First Alterna te Health Care Agent
--- OUTSIDE RECORDS SUMMARY | 2023-12-09 10:11 | XMS_ITS | Encounter Summary ---
Author Organization [facility] Address [address] [place] [address] Care Team Providers Care Repairer Art Objects Name Role Phone Unavailable Primary Care Provider Unavailabl e Encounter Details Date Type Department Care Team (Latest Contact Info) Description 11/01/2023 1:18 PM CDT - 11/01/2023 11:59 PM CDT Hospital Encounter Department of Radiation Oncology in [place], [place] [address] [place] [phone] Elsie Dewey M.D. [address] [place] [address] Discharge Disposition: Home or Self Care Social [...] How often do you attend episcopal or mandaen serv ices? Never 10/31/2022 Do [...] and heating? Not hard at all 10/31/2022 [facility] of Occupat ional Health - Occupational Stress [...] CDT Appointment Department of Radiation Oncology in [place], [place] [address] [place] [address] Elsie Dewey M.D. [address] [place] [address] documented as of this encounter Visit Diagnoses Not on filedocumented in this encounter
--- OUTSIDE RECORDS SUMMARY | 2023-12-09 10:11 | XMS_ITS | Encounter Summary ---
Author Organization [facility] Address [address] [place] [address] Care Team Providers Care Hotel Maid Name Role Phone Unavailable Primary Care Provider Unavailabl e Encounter Details Date Type Department Care Team (Late st Contact Info) Description 11/01/2023 Documentation Department of Radiation Oncology in [place], [place] [address] [place] [phone] Elsie Dewey M.D. [address] [place] [phone] Social History Tobacco Use Types Packs/Day Years [...] How often do you attend sikh or lutheran serv ices? Never 10/31/2022 Do [...] and heating? Not hard at all 10/31/2022 [facility] of Occupat ional Health - [...] place to sleep or slept in a correction (including now)? No 10/31/2022 Nutrition Answer Date [...] as of this encounter Miscellaneous Notes * Radiation Completion Notes - Kirsten Bella R.NJessica - 11/01/2023 11:59 PM CDT DIAGNOSIS: 1. Malignant Neoplasm Of Lung Right (HCC) Attending Physician: Elsie Dewey M.D. Treatment Intent: Curative Concomitant Therapy: Chemotherapy Single Plan Treatment Course: 2xLung Plan ID Fractions Dose / Fraction (cGy) Dose Treated (cGy) Dose Planned (cGy) First Treatment Last Treatment Elapsed Days [id number] 200 6000 6000 09/23/2023 11/01/2023 39 Course Summary 09/23/2023 11/01/2023 39 Radiation Modality: Photons CLINICAL SUMMARY Mrs. Anila Henderson completed radiation treatment as planned without interruptions. The course of treatment was tolerated well. The patient experienced grade 1 fatigue as her only toxicity during radiation treatment. TREATMENT RESPONSE: Response to treatment will be determined by post-treatment imaging and/or laboratory work. RECOMMENDED FOLLOW UP: Radiation Oncologist and Primary Medical Oncologist. Dr. Mitchell and Dr. Dewey Signed by: Kirsten Bella R.N., 11/14/2023 1:38 PM CDT [facility] [address] [place] [address] documented in this encounter Plan of Treatment Upcoming Encounters Date Type Department Care Team (Late st Contact Info) Description 12/17/2023 3:30 PM CDT Appointment Department of Radiation Oncology in [address] [address] Elsie Dewey M.D. [address] [place] [address] documented as of this encounter Visit Diagnoses Diagnosis Malignant Neoplasm Of Lung Right (HCC)- Primary documented in this encounter
--- OUTSIDE RECORDS SUMMARY | 2023-12-09 10:11 | XMS_ITS | Encounter Summary ---
Author Organization [facility] Address [address] [place] [address] Care Team Providers Care Hard Rock Drill Operator Name Role Phone Unavailable Primary Care Provider Unavailabl e Encounter Details Date Type Department Care Team (Latest Contact Info) Description 10/29/2023 1:43 PM CDT - 10/29/2023 11:59 PM CDT Hospital Encounter Department of Radiation Oncology in [place], [place] [address] [place] [phone] Elsie Dewey M.D. [address] [place] [address] Discharge Disposition: Home or Self Care Social [...] How often do you attend rastafarian or roman catholic serv ices? Never 10/31/2022 Do you [...] heating? Not hard at all 10/31/2022 [facility] of Occupat ional Health - [...] CDT Appointment Department of Radiation Oncology in [place], [place] [address] [place] [address] Elsie Dewey M.D. [address] [place] [address] documented as of this encounter Visit Diagnoses Not on filedocumented in this encounter
--- OUTSIDE RECORDS SUMMARY | 2023-12-09 10:12 | XMS_ITS | Encounter Summary ---
Author Organization [facility] Address [address] [place] [address] Care Team Providers Care Production Mechanic Tin Cans Name Role Phone Unavailable Primary Care Provider Unavailabl e Encounter Details Date Type Department Care Team (Latest Contact Info) Description 10/16/2023 1:11 PM CDT - 10/16/2023 11:59 PM CDT Hospital Encounter Department of Radiation Oncology in [place], [place] [address] [place] [phone] Elsie Dewey M.D. [address] [place] [address] Discharge Disposition: Home or Self Care Social [...] How often do you attend mandaen or congregational serv ices? Never 10/31/2022 Do you belong [...] and heating? Not hard at all 10/31/2022 [facility] of Occupat ional Health - [...] CDT Appointment Department of Radiation Oncology in [place], [place] [address] [place] [address] Elsie Dewey M.D. [address] [place] [address] documented as of this encounter Visit Diagnoses Not on filedocumented in this encounter
--- OUTSIDE RECORDS SUMMARY | 2023-12-09 10:12 | XMS_ITS | Encounter Summary ---
Author Organization [facility] Address [address] [place] [address] Care Team Providers Care Software Integration Developer Name Role Phone Unavailable Primary Care Provider Unavailabl e Reason for Referral * Radiation Therapy (Routine) - Authorized Specialty Diagnoses / Procedures Referred By Contac t Referred To Contact Diagnoses Malignant Neoplasm Of Lung Right (HCC) Procedures Management Visit Elsie Dewey M.D. [address] [place] [address] [facility] Region Referral ID Status Reason Start Date Expiration Date V isits Requested Visits Authorized [id number] Authorized 09/09/2023 09/08/2024 10 10 Reason for Visit * Radiation Therapy (Routine) - Authorized Specialty Diagnoses / Procedures Referred By Ervin frye Referred To Contact Diagnoses Malignant Neoplasm Of Lung Right (HCC) Procedures Management Visit Elsie Dewey M.D. [address] [place] [address] [facility] Region Referral ID Status Reason Start Date Expiration Date V isits Requested Visits Authorized [id number] Authorized 09/09/2023 09/08/2024 10 10 Encounter Details Date Type Department Care Team (Latest Contact Info) Description 10/22/2023 1:47 PM CDT - 10/22/2023 4:15 PM CDT Hospital Encounter Department of Radiation Oncology in [place], [place] [address] [place] [phone] Elsie Dewey M.D. [address] [place] [address] Malignant Neoplasm Of Lung Right (HCC) Social [...] How often do you attend jewish or scientologist serv ices? Never 10/31/2022 Do you belong [...] and heating? Not hard at all 10/31/2022 [facility] of Occupat ional Health [...] Sign Reading Time Taken Comments Blood Pressure 141/68 10/22/2023 2:17 PM CDT Pulse 90 10/22/2023 2:17 PM CDT Temperature 36.1 ??C (97 ??F) 10/22/2023 2:17 PM CDT Respiratory Rate - - Oxygen Saturation - - Inhaled Oxygen Concentration - - Weight 60.3 kg (132 lb 15 oz) 10/22/2023 2:17 PM CDT Height - - Body Mass Index 24.31 09/05/2023 6:11 AM CDT documented in this [...] Progress Notes * Elsie Dewey M.D. - 10/22/2023 2:00 PM CDT ATTESTATION FOR MANAGEMENT VISIT I saw and evaluated the patient and participated in the eubanks portions of the service as noted below.I reviewed the documentation of Ms. Bella Win RN and agree with the findings and plan. The patient appears well on exam. We will continue with radiation as planned and monitor weekly. Elsie Dewey M.D., 10/22/2023 SUBJECTIVE REASON FOR VISIT Evaluation for side [...] under the care of Dr. Mitchell at [facility]. Chemotherapy held on October 01, 2023 due to chesttightness. Patient declined ER visit and was seen by primary care provider same day. Patient was then evaluated at [facility] ER on October 02, 2023 and small PE noted, Eliquis started. Chemotherapy restarted on October 08, 2023. Treatment Course: 2xLung Plan ID Fractions Dose / Fraction (cGy) Dose Treated (cGy) Dose Planned (cGy) First Treatment Last Treatment Elapsed Days [id number] 200 4400 6000 09/23/2023 10/22/2023 Course Summary 09/23/2023 10/22/2023 29 The patient was seen and examined today with Dr. Dewey. Patient reports to be feeling well overall. She denies chest pain or discomfort. Patient denies esophageal pain, dysphagia, nausea, vomiting, fevers, chills, changes to baseline SOB or cough. She reports to be eating and drinking well and has no new issues or concerns at this time. Weight September 24, 2023: 59.0 starting weight October 01, 2023: 59.2 kg October 08, 2023: 59.4 kg October 15, 2023: 59.9 kg October 22, 2023: 60.3 kg PATIENT REPORTED SYMPTOM SCREEN FATIGUE (Scale: 0 = no fatigue; 10 = worst fatigue you can imagine): 4 PAIN (Scale: 0 = no pain; 10 = worst pain you can imagine): 0 OVERALL QUALITY OF LIFE (Scale: 0 = as bad as can be; 10 = as good as can be): 8 OBJECTIVE BP 141/68 (BP Location: Right arm, Patient Position: Sitting, Cuff Size: Regular) Pulse 90 Temp36.1 ??C (Temporal) Wt 60.3 kg BMI 24.31 kg/m?? PHYSICAL EXAM General: Alert and oriented [...] segmental artery on chest CT imaging at [facility] ER Patient reports to be feeling well overall. Weight remains stable. She did receive chemotherapy today prior to her visit here in clinic. Chemotherapy is being managed by Dr. Andrews at [facility]. We will continue to see patient in weekly management visits throughout her course of radiation therapy. She will contact us with any questions or concerns. We will continue with radiation treatment as planned. Signed by: Bella Win R.N. 10/22/2023 2:32 PM CDT documented in this encounter Plan of Treatment Upcoming Encounters Date Type Department Care Team (Late st Contact Info) Description 12/17/2023 3:30 PM CDT Appointment Department of Radiation Oncology in [place], [place] [address] [place] [address] Elsie Dewey M.D. [address] [place] [address] Scheduled Orders Name Type Priority Associated Diagnoses Orde r Schedule Management Visit Radiation Oncology Routine Malignant Neoplasm Of Lung Right (HCC) Once for 1 Occurrences starting 10/22/2023 until 10/22/2023 documented as of this encounter Visit Diagnoses Diagnosis Malignant Neoplasm Of Lung Right (HCC) documented in this encounter
--- OUTSIDE RECORDS SUMMARY | 2023-12-09 10:12 | XMS_ITS | Encounter Summary ---
Author Organization [facility] Address [address] [place] [address] Care Team Providers Care Pond Sawyer Name Role Phone Unavailable Primary Care Provider Unavailabl e Encounter Details Date Type Department Care Team (Latest Contact Info) Description 10/07/2023 10:03 AM CDT - 10/07/2023 11:59 PM CDT Hospital Encounter Department of Radiation Oncology in [place], [place] [address] [place] [phone] Elsie Dewey M.D. [address] [place] [address] Discharge Disposition: Home or Self Care Social [...] declined 10/31/2022 How often do you attend buddhist or caodaism serv ices? Never 10/31/2022 Do you belong to any clubs o r organizations such as buddhist groups, unions, fraternal or athletic groups, or [...] and heating? Not hard at all 10/31/2022 [facility] of Occupat ional Health - Occupational Stress [...] CDT Appointment Department of Radiation Oncology in [place], [place] [address] [place] [address] Elsie Dewey M.D. [address] [place] [address] documented as of this encounter Visit Diagnoses Not on filedocumented in this encounter
--- OUTSIDE RECORDS SUMMARY | 2023-12-09 10:12 | XMS_ITS | Encounter Summary ---
Author Organization [facility] Address [address] [place] [address] Care Team Providers Care Levers Lace Machine Operator Name Role Phone Unavailable Primary Care Provider Unavailabl e Encounter Details Date Type Department Care Team (Latest Contact Info) Description 10/24/2023 1:20 PM CDT - 10/24/2023 11:59 PM CDT Hospital Encounter Department of Radiation Oncology in [place], [place] [address] [place] [phone] Elsie Dewey M.D. [address] [place] [address] Discharge Disposition: Home or Self Care Social [...] How often do you attend christian or hoahaoism serv ices? Never 10/31/2022 Do [...] all 10/31/2022 [facility] of Occupat ional Health - Occupational [...] CDT Appointment Department of Radiation Oncology in [place], [place] [address] [place] [address] Elsie Dewey M.D. [address] [place] [address] documented as of this encounter Visit Diagnoses Not on filedocumented in this encounter
--- OUTSIDE RECORDS SUMMARY | 2023-12-09 10:12 | XMS_ITS | Encounter Summary ---
Author Organization [facility] Address [address] [place] [address] Care Team Providers Care Physiotherapy Aide Name Role Phone Unavailable Primary Care Provider Unavailabl e Reason for Referral * Radiation Therapy (Routine) - Authorized Specialty Diagnoses / Procedures Referred By Contac t Referred To Contact Diagnoses Malignant Neoplasm Of Lung Right (HCC) Procedures Management Visit Elsie Dewey M.D. [address] [place] [address] [facility] Region Referral ID Status Reason Start Date Expiration Date V isits Requested Visits Authorized [id number] Authorized 09/09/2023 09/08/2024 10 10 Reason for Visit * Radiation Therapy (Routine) - Authorized Specialty Diagnoses / Procedures Referred By Ervin frye Referred To Contact Diagnoses Malignant Neoplasm Of Lung Right (HCC) Procedures Management Visit Elsie Dewey M.D. [address] [place] [address] [facility] Region Referral ID Status Reason Start Date Expiration Date V isits Requested Visits Authorized [id number] Authorized 09/09/2023 09/08/2024 10 10 Encounter Details Date Type Department Care Team (Latest Contact Info) Description 10/08/2023 1:54 PM CDT - 10/08/2023 4:49 PM CDT Hospital Encounter Department of Radiation Oncology in [place], [place] [address] [place] [address] Elsie Dewey M.D. [address] [place] [address] Malignant Neoplasm Of Lung Right (HCC) Social [...] How often do you attend rastafarian or zoroastrian serv ices? Never 10/31/2022 Do [...] and heating? Not hard at all 10/31/2022 [facility] of Occupat ional Health - Occupational [...] Sign Reading Time Taken Comments Blood Pressure 146/64 10/08/2023 2:17 PM CDT Pulse 102 10/08/2023 2:17 PM CDT Temperature 36.1 ??C (97 ??F) 10/08/2023 2:17 PM CDT Respiratory Rate - - Oxygen Saturation - - Inhaled Oxygen Concentration - - Weight 59.4 kg (130 lb 15.3 oz) 10/08/2023 2:17 PM CDT Height - - Body Mass Index 23.95 09/05/2023 6:11 AM CDT documented in this [...] Progress Notes * Elsie Dewey M.D. - 10/08/2023 2:00 PM CDT ATTESTATION FOR MANAGEMENT VISIT I saw and evaluated the patient and participated in the eubanks portions of the service as noted below.I reviewed the documentation of Ms. Bella Win RN and agree with the findings and plan. The patient appears well on exam. We will continue with radiation as planned and monitor weekly. Elsie Dewey M.D., 10/08/2023 SUBJECTIVE REASON FOR VISIT Evaluation for side [...] under the care of Dr. Mitchell at [facility]. Chemotherapy held on October 01, 2023 due to chesttightness. Patient declined ER visit and was seen by primary care provider same day. Patient was then evaluated at [facility] ER on October 02, 2023 and small PE noted, Eliquis started. Chemotherapy restarted on October 08, 2023. Treatment Course: 2xLung Plan ID Fractions Dose / Fraction (cGy) Dose Treated (cGy) Dose Planned (cGy) First Treatment Last Treatment Elapsed Days [id number] 200 2400 6000 09/23/2023 10/08/2023 15 Course Summary 09/23/2023 10/08/2023 15 The patient was seen and examined today with Dr. Dewey. Today the patient denies chest pain/discomfort/tightness. Patient denies fevers,chills, shortness of breath baseline changes, cough, nausea, vomiting, sore throat, esophageal pain, dysphagia or diarrhea. Weight September 24, 2023: 59.0 starting weight October 01, 2023: 59.2 kg October 08, 2023: 59.4 kg PATIENT REPORTED SYMPTOM SCREEN FATIGUE (Scale: 0 = no fatigue; 10 = worst fatigue you can imagine): 5 PAIN (Scale: 0 = no pain; 10 = worst pain you can imagine): 1 OVERALL QUALITY OF LIFE (Scale: 0 = as bad as can be; 10 = as good as can be): 9 OBJECTIVE BP 146/64 (BP Location: Right arm, Patient Position: Sitting, Cuff Size: Regular) Pulse 102 Temp 36.1 ??C (Temporal) Wt 59.4 kg BMI 23.95 kg/m?? PHYSICAL EXAM General: Alert and oriented [...] segmental artery on chest CT imaging at [facility] ER Patient did not receive chemotherapy infusion last week (September 30) due to report of chest tightness from [facility]. Patient was then evaluated at [facility] ER on October 02, 2023. patient noted to have small PE on chest CT imaging during ER visit. Patient prescribed Eliquis. Weekly carboplatin and taxol resumed today, October 08, 2023. Chemotherapy is being managed by Dr. Andrews at [facility]. We will continue to see patient in weekly management visits throughout her course of radiation therapy. She will contact us with any questions or concerns. We will continue with radiation treatment as planned. Signed by: Bella Win R.N. 10/08/2023 2:39 PM CDT documented in this encounter Plan of Treatment Upcoming Encounters Date Type Department Care Team (Late st Contact Info) Description 12/17/2023 3:30 PM CDT Appointment Department of Radiation Oncology in [place], [place] [address] [place] [address] Elsie eDwey M.D. [address] [place] [address] Scheduled Orders Name Type Priority Associated Diagnoses Orde r Schedule Management Visit Radiation Oncology Routine Malignant Neoplasm Of Lung Right (HCC) Once for 1 Occurrences starting 10/08/2023 until 10/08/2023 documented as of this encounter Visit Diagnoses Diagnosis Malignant Neoplasm Of Lung Right (HCC) documented in this encounter
--- OUTSIDE RECORDS SUMMARY | 2023-12-09 10:12 | XMS_ITS | Encounter Summary ---
Author Organization [facility] Address [address] [place] [address] Care Team Providers Care Ink Blender Name Role Phone Unavailable Primary Care Provider Unavailabl e Encounter Details Date Type Department Care Team (Latest Contact Info) Description 10/08/2023 1:45 PM CDT - 10/08/2023 1:53 PM CDT Hospital Encounter Department of Radiation Oncology in [place], [place] [address] [place] [phone] Elsie Dewey M.D. [address] [place] [address] Discharge Disposition: Home or Self Care Social [...] How often do you attend mandaen or bahai serv ices? Never 10/31/2022 Do you belong [...] and heating? Not hard at all 10/31/2022 [facility] of Occupat ional Health - [...] CDT Appointment Department of Radiation Oncology in [place], [place] [address] [place] [address] Elsie Dewey M.D. [address] [place] [address] documented as of this encounter Visit Diagnoses Not on filedocumented in this encounter
--- OUTSIDE RECORDS SUMMARY | 2023-12-09 10:12 | XMS_ITS | Encounter Summary ---
Author Organization [facility] Address [address] [place] [address] Care Team Providers Care Technicians And Trades Workers Name Role Phone Unavailable Primary Care Provider Unavailabl e Encounter Details Date Type Department Care Team (Latest Contact Info) Description 10/25/2023 1:20 PM CDT - 10/25/2023 11:59 PM CDT Hospital Encounter Department of Radiation Oncology in [place], [place] [address] [place] [phone] Elsie Dewey M.D. [address] [place] [address] Discharge Disposition: Home or Self Care Social [...] How often do you attend rastafari or voodoo serv ices? Never 10/31/2022 Do you belong [...] heating? Not hard at all 10/31/2022 [facility] of Occupat ional Health - [...] CDT Appointment Department of Radiation Oncology in [place], [place] [address] [place] [address] Elsie Dewey M.D. [address] [place] [address] documented as of this encounter Visit Diagnoses Not on filedocumented in this encounter
--- OUTSIDE RECORDS SUMMARY | 2023-12-09 10:12 | XMS_ITS | Encounter Summary ---
Author Organization [facility] Address [address] [place] [address] Care Team Providers Care Electrician Master Name Role Phone Unavailable Primary Care Provider Unavailabl e Encounter Details Date Type Department Care Team (Latest Contact Info) Description 10/21/2023 1:23 PM CDT - 10/21/2023 11:59 PM CDT Hospital Encounter Department of Radiation Oncology in [place], [place] [address] [place] [phone] Elsie Dewey M.D. [address] [place] [address] Discharge Disposition: Home or Self Care Social [...] How often do you attend moravian or jewish serv ices? Never 10/31/2022 Do [...] and heating? Not hard at all 10/31/2022 [facility] of Occupat ional Health - Occupational Stress [...] CDT Appointment Department of Radiation Oncology in [place], [place] [address] [place] [address] Elsie Dewey M.D. [address] [place] [address] documented as of this encounter Visit Diagnoses Not on filedocumented in this encounter
--- OUTSIDE RECORDS SUMMARY | 2023-12-09 10:12 | XMS_ITS | Encounter Summary ---
Author Organization [facility] Address [address] [place] [address] Care Team Providers Care Test Pilot Name Role Phone Unavailable Primary Care Provider Unavailabl e Encounter Details Date Type Department Care Team (Latest Contact Info) Description 10/17/2023 1:22 PM CDT - 10/17/2023 11:59 PM CDT Hospital Encounter Department of Radiation Oncology in [place], [place] [address] [place] [phone] Elsie Dewey M.D. [address] [place] [address] Discharge Disposition: Home or Self Care Social [...] declined 10/31/2022 How often do you attend jainism or scientology serv ices? Never 10/31/2022 Do you belong to any clubs o r organizations such as jainism groups, unions, fraternal or athletic groups, or [...] and heating? Not hard at all 10/31/2022 [facility] of Occupat ional Health - Occupational [...] CDT Appointment Department of Radiation Oncology in [place], [place] [address] [place] [address] Elsie Dewey M.D. [address] [place] [address] documented as of this encounter Visit Diagnoses Not on filedocumented in this encounter
--- OUTSIDE RECORDS SUMMARY | 2023-12-09 10:12 | XMS_ITS | Encounter Summary ---
Author Organization [facility] Address [address] [place] [address] Care Team Providers Care Cna Ltc Name Role Phone Unavailable Primary Care Provider Unavailabl e Encounter Details Date Type Department Care Team (Latest Contact Info) Description 10/11/2023 1:00 PM CDT - 10/11/2023 11:59 PM CDT Hospital Encounter Department of Radiation Oncology in [place], [place] [address] [place] [phone] Elsie Dewey M.D. [address] [place] [address] Discharge Disposition: Home or Self Care Social [...] often do you attend roman catholic or latter day serv ices? Never 10/31/2022 Do you belong [...] CDT Appointment Department of Radiation Oncology in [place], [place] [address] [place] [address] Elsie Dewey M.D. [address] [place] [address] documented as of this encounter Visit Diagnoses Not on filedocumented in this encounter
--- OUTSIDE RECORDS SUMMARY | 2023-12-09 10:12 | XMS_ITS | Encounter Summary ---
Author Organization [facility] Address [address] [place] [address] Care Team Providers Care Bathing Suit Maker Name Role Phone Unavailable Primary Care Provider Unavailabl e Encounter Details Date Type Department Care Team (Latest Contact Info) Description 10/22/2023 1:45 PM CDT - 10/22/2023 1:46 PM CDT Hospital Encounter Department of Radiation Oncology in [place], [place] [address] [place] [phone] Elsie Dewey M.D. [address] [place] [address] Discharge Disposition: Home or Self Care Social [...] declined 10/31/2022 How often do you attend quaker or jehovah's witness serv ices? Never 10/31/2022 Do you belong to any clubs o r organizations such as quaker groups, unions, fraternal or athletic groups, or [...] and heating? Not hard at all 10/31/2022 [facility] of Occupat ional Health - [...] CDT Appointment Department of Radiation Oncology in [place], [place] [address] [place] [address] Elsie Dewey M.D. [address] [place] [address] documented as of this encounter Visit Diagnoses Not on filedocumented in this encounter
--- OUTSIDE RECORDS SUMMARY | 2023-12-09 10:12 | XMS_ITS | Encounter Summary ---
Author Organization [facility] Address [address] [place] [address] Care Team Providers Care Banquet Manager Name Role Phone Unavailable Primary Care Provider Unavailabl e Encounter Details Date Type Department Care Team (Latest Contact Info) Description 10/14/2023 1:16 PM CDT - 10/14/2023 11:59 PM CDT Hospital Encounter Department of Radiation Oncology in [place], [place] [address] [place] [phone] Elsie Dewey M.D. [address] [place] [address] Discharge Disposition: Home or Self Care Social [...] How often do you attend caodaism or worship serv ices? Never 10/31/2022 Do [...] and heating? Not hard at all 10/31/2022 [facility] of Occupat ional Health - [...] place to sleep or slept in a intermediate (including now)? No 10/31/2022 Nutrition Answer Date [...] CDT Appointment Department of Radiation Oncology in [place], [place] [address] [place] [address] Elsie Dewey M.D. [address] [place] [address] documented as of this encounter Visit Diagnoses Not on filedocumented in this encounter
--- OUTSIDE RECORDS SUMMARY | 2023-12-09 10:12 | XMS_ITS | Encounter Summary ---
Author Organization [facility] Address [address] [place] [address] Care Team Providers Care Capacitor Repairer Name Role Phone Unavailable Primary Care Provider Unavailabl e Encounter Details Date Type Department Care Team (Latest Contact Info) Description 10/10/2023 1:10 PM CDT - 10/10/2023 11:59 PM CDT Hospital Encounter Department of Radiation Oncology in [place], [place] [address] [place] [phone] Elsie Dewey M.D. [address] [place] [address] Discharge Disposition: Home or Self Care Social [...] How often do you attend confucianism or faith serv ices? Never 10/31/2022 Do [...] and heating? Not hard at all 10/31/2022 [facility] of Occupat ional Health [...] CDT Appointment Department of Radiation Oncology in [place], [place] [address] [place] [address] Elsie Dewey M.D. [address] [place] [address] documented as of this encounter Visit Diagnoses Not on filedocumented in this encounter
--- OUTSIDE RECORDS SUMMARY | 2023-12-09 10:12 | XMS_ITS | Encounter Summary ---
Author Organization [facility] Address [address] [place] [address] Care Team Providers Care Shipping Lead Person Name Role Phone Unavailable Primary Care Provider Unavailabl e Reason for Referral * Radiation Therapy (Routine) - Authorized Specialty Diagnoses / Procedures Referred By Contac t Referred To Contact Diagnoses Malignant Neoplasm Of Lung Right (HCC) Procedures Management Visit Elsie Dewey M.D. [address] [place] [address] [facility] Region Referral ID Status Reason Start Date Expiration Date V isits Requested Visits Authorized [id number] Authorized 09/09/2023 09/08/2024 10 10 Reason for Visit * Radiation Therapy (Routine) - Authorized Specialty Diagnoses / Procedures Referred By Ervin frye Referred To Contact Diagnoses Malignant Neoplasm Of Lung Right (HCC) Procedures Management Visit Elsie Dewey M.D. [address] [place] [address] [facility] Region Referral ID Status Reason Start Date Expiration Date V isits Requested Visits Authorized [id number] Authorized 09/09/2023 09/08/2024 10 10 Encounter Details Date Type Department Care Team (Latest Contact Info) Description 10/15/2023 1:18 PM CDT - 10/15/2023 3:57 PM CDT Hospital Encounter Department of Radiation Oncology in [place], [place] [address] [place] [phone] Elsie Dewey M.D. [address] [place] [address] Malignant Neoplasm Of Lung Right (HCC) Social [...] declined 10/31/2022 How often do you attend sabianism or hoahaoism serv ices? Never 10/31/2022 Do you belong to any clubs o r organizations such as sabianism groups, unions, fraternal or athletic groups, or [...] Sign Reading Time Taken Comments Blood Pressure 144/72 10/15/2023 2:19 PM CDT Pulse 84 10/15/2023 2:19 PM CDT Temperature 36.7 ??C (98 ??F) 10/15/2023 2:19 PM CDT Respiratory Rate - - Oxygen Saturation - - Inhaled Oxygen Concentration - - Weight 59.9 kg (132 lb 0.9 oz) 10/15/2023 2:19 P M CDT Height - - Body Mass Index 24.15 09/05/2023 6:11 AM CDT documented in this [...] Progress Notes * Elsie Dewey M.D. - 10/15/2023 2:15 PM CDT ATTESTATION FOR MANAGEMENT VISIT I saw and evaluated the patient and participated in the eubanks portions of the service as noted below.I reviewed the documentation of Ms. Kirsten Bella RN and agree with the findings and plan. Thepatient appears well on exam. We will continue with radiation as planned and monitor weekly. Elsie Dewey M.D., 10/15/2023 SUBJECTIVE REASON FOR VISIT Evaluation for side [...] under the care of Dr. Mitchell at [facility]. Chemotherapy held on October 01, 2023 due to chesttightness. Patient declined ER visit and was seen by primary care provider same day. Patient was then evaluated at [facility] ER on October 02, 2023 and small PE noted, Eliquis started. Chemotherapy restarted on October 08, 2023. Treatment Course: 2xLung Plan ID Fractions Dose / Fraction (cGy) Dose Treated (cGy) Dose Planned (cGy) First Treatment Last Treatment Elapsed Days [id number] 09/23/2023 10/15/2023 Course Summary 09/23/2023 10/15/2023 The patient was seen and examined today with Dr. Dewey. Patient reports to be feeling well overall. She denies chest pain or discomfort. Patient denies esophageal pain, dysphagia, changes to baseline SOB or cough. She reports to be eating and drinking well and has no new issues or concerns at this time. Weight September 24, 2023: 59.0 starting weight October 01, 2023: 59.2 kg October 08, 2023: 59.4 kg October 15, 2023: 59.9 kg PATIENT REPORTED SYMPTOM SCREEN FATIGUE (Scale: 0 = no fatigue; 10 = worst fatigue you can imagine): 5 PAIN (Scale: 0 = no pain; 10 = worst pain you can imagine): 1 OVERALL QUALITY OF LIFE (Scale: 0 = as bad as can be; 10 = as good as can be): 9 OBJECTIVE BP 144/72 (BP Location: Left arm, Patient Position: Sitting, Cuff Size: Regular) Pulse 84 Temp 36.7 ??C (Temporal) Wt 59.9 kg BMI 24.15 kg/m?? PHYSICAL EXAM General: Alert and oriented [...] segmental artery on chest CT imaging at [facility] ER Patient reports to be feeling well overall. She did receive chemotherapy today prior to her visit. Chemotherapy is being managed by Dr. Andrews at [facility]. We will continue to see patient in weekly management visits throughout her course of radiation therapy. She will contact us with any questions or concerns. We will continue with radiation treatment as planned. Signed by: Kirsten Bella R.N. 10/15/2023 2:32 PM CDT documented in this encounter Plan of Treatment Upcoming Encounters Date Type Department Care Team (Late st Contact Info) Description 12/17/2023 3:30 PM CDT Appointment Department of Radiation Oncology in [place], [place] [address] [place] [address] Elsie Dewey M.D. [address] [place] [address] Scheduled Orders Name Type Priority Associated Diagnoses Orde r Schedule Management Visit Radiation Oncology Routine Malignant Neoplasm Of Lung Right (HCC) Once for 1 Occurrences starting 10/15/2023 until 10/15/2023 documented as of this encounter Visit Diagnoses Diagnosis Malignant Neoplasm Of Lung Right (HCC) documented in this encounter
--- OUTSIDE RECORDS SUMMARY | 2023-12-09 10:12 | XMS_ITS | Encounter Summary ---
Author Organization [facility] Address [address] [place] [address] Care Team Providers Care Fryer Operator Name Role Phone Unavailable Primary Care Provider Unavailabl e Encounter Details Date Type Department Care Team (Latest Contact Info) Description 10/09/2023 1:08 PM CDT - 10/09/2023 11:59 PM CDT Hospital Encounter Department of Radiation Oncology in [place], [place] [address] [place] [phone] Elsie Dewey M.D. [address] [place] [address] Discharge Disposition: Home or Self Care Social [...] How often do you attend presybeterian or taoism serv ices? Never 10/31/2022 Do [...] and heating? Not hard at all 10/31/2022 [facility] of Occupat ional Health - Occupational [...] CDT Appointment Department of Radiation Oncology in [place], [place] [address] [place] [address] Elsie Dewey M.D. [address] [place] [address] documented as of this encounter Visit Diagnoses Not on filedocumented in this encounter
--- OUTSIDE RECORDS SUMMARY | 2023-12-09 10:12 | XMS_ITS | Encounter Summary ---
Author Organization [facility] Address [address] [place] [address] Care Team Providers Care Lead Applier Name Role Phone Unavailable Primary Care Provider Unavailabl e Encounter Details Date Type Department Care Team (Latest Contact Info) Description 10/18/2023 1:16 PM CDT - 10/18/2023 11:59 PM CDT Hospital Encounter Department of Radiation Oncology in [place], [place] [address] [place] [phone] Elsie Dewey M.D. [address] [place] [address] Discharge Disposition: Home or Self Care Social [...] declined 10/31/2022 How often do you attend mandaeism or christianity serv ices? Never 10/31/2022 Do you belong to any clubs o r organizations such as mandaeism groups, unions, fraternal or athletic groups, or [...] and heating? Not hard at all 10/31/2022 [facility] of Occupat ional Health - Occupational Stress [...] CDT Appointment Department of Radiation Oncology in [place], [place] [address] [place] [address] Elsie Dewey M.D. [address] [place] [address] documented as of this encounter Visit Diagnoses Not on filedocumented in this encounter
--- OUTSIDE RECORDS SUMMARY | 2023-12-09 10:12 | XMS_ITS | Encounter Summary ---
Author Organization [facility] Address [address] [place] [address] Care Team Providers Care Recordist Chief Name Role Phone Unavailable Primary Care Provider Unavailabl e Encounter Details Date Type Department Care Team (Latest Contact Info) Description 10/15/2023 1:18 PM CDT - 10/15/2023 11:59 PM CDT Hospital Encounter Department of Radiation Oncology in [place], [place] [address] [place] [phone] Elsie Dewey M.D. [address] [place] [address] Discharge Disposition: Home or Self Care Social [...] declined 10/31/2022 How often do you attend christianity or jainism serv ices? Never 10/31/2022 Do you belong to any clubs o r organizations such as christianity groups, unions, fraternal or athletic groups, or [...] heating? Not hard at all 10/31/2022 [facility] of Occupat ional Health - Occupational Stress [...] CDT Appointment Department of Radiation Oncology in [place], [place] [address] [place] [address] Elsie Dewey M.D. [address] [place] [address] documented as of this encounter Visit Diagnoses Not on filedocumented in this encounter
--- OUTSIDE RECORDS SUMMARY | 2023-12-09 10:12 | XMS_ITS | Encounter Summary ---
Author Organization [facility] Address [address] [place] [address] Care Team Providers Care Management Lead Name Role Phone Unavailable Primary Care Provider Unavailabl e Encounter Details Date Type Department Care Team (Latest Contact Info) Description 10/23/2023 1:31 PM CDT - 10/23/2023 11:59 PM CDT Hospital Encounter Department of Radiation Oncology in [place], [place] [address] [place] [address] Elsie Dewey M.D. [address] [place] [address] Discharge Disposition: Home or Self Care Social [...] How often do you attend mandaen or baptist serv ices? Never 10/31/2022 Do you belong [...] CDT Appointment Department of Radiation Oncology in [place], [place] [address] [place] [address] Elsie Dewey M.D. [address] [place] [address] documented as of this encounter Visit Diagnoses Not on filedocumented in this encounter
--- OUTSIDE RECORDS SUMMARY | 2023-12-09 10:13 | XMS_ITS | Encounter Summary ---
Author Organization [facility] Address [address] [place] [address] Care Team Providers Care Framing Mill Operator Name Role Phone Unavailable Primary Care Provider Unavailabl e Encounter Details Date Type Department Care Team (Late st Contact Info) Description 10/01/2023 Clinical Communication Department of Radiation Oncology in [place], [place] [address] [place] [address] Elsie Dewey M.D. [address] [place] [phone] Social History Tobacco Use Types Packs/Day Years [...] declined 10/31/2022 How often do you attend evangelical or hindu serv ices? Never 10/31/2022 Do you belong to any clubs o r organizations such as evangelical groups, unions, fraternal or athletic groups, or [...] 10/31/2022 [facility] of Occupat ional [facility] - Occupational Stress Questionnaire Answer Date [...] they left. Dr. Andrews feels that the sterilizer operator did not know about the substernal tightness, low O2 level and high blood pressure that she experienced yesterday when she reviewed the note from them. I explained that I am not an buckle frame shaper and defer to Dr. Andrews. I think [...] CDT Appointment Department of Radiation Oncology in [place], [place] [address] [place] [address] Elsie Dewey M.D. [address] [place] [address] documented as of this encounter Visit Diagnoses Not on filedocumented in this encounter
--- OUTSIDE RECORDS SUMMARY | 2023-12-09 10:13 | XMS_ITS | Encounter Summary ---
Author Organization [facility] Address [address] [place] [address] Care Team Providers Care Manager Corporate Communications Name Role Phone Unavailable Primary Care Provider Unavailabl e Encounter Details Date Type Department Care Team (Latest Contact Info) Description 10/02/2023 1:00 PM CDT - 10/02/2023 11:59 PM CDT Hospital Encounter Department of Radiation Oncology in [place], [place] [address] [place] [phone] Elsie Dewey M.D. [address] [place] [address] Discharge Disposition: Home or Self Care Social [...] declined 10/31/2022 How often do you attend zoroastrianism or catholic serv ices? Never 10/31/2022 Do you belong to any clubs o r organizations such as zoroastrianism groups, unions, fraternal or athletic groups, or [...] heating? Not hard at all 10/31/2022 [facility] of Occupat ional Health - Occupational [...] CDT Appointment Department of Radiation Oncology in [place], [place] [address] [place] [address] Elsie Dewey M.D. [address] [place] [address] documented as of this encounter Visit Diagnoses Not on filedocumented in this encounter
--- OUTSIDE RECORDS SUMMARY | 2023-12-09 10:13 | XMS_ITS | Encounter Summary ---
Author Organization [facility] Address [address] [place] [address] Care Team Providers Care Coal Deliverer Name Role Phone Unavailable Primary Care Provider Unavailabl e Encounter Details Date Type Department Care Team (Latest Contact Info) Description 09/24/2023 9:00 AM CDT - 09/24/2023 11:59 PM CDT Hospital Encounter Department of Radiation Oncology in [place], [place] [address] [place] [address] Elsie Dewey M.D. [address] [place] [address] Discharge Disposition: Home or Self Care Social [...] often do you attend oriental orthodox or confucianism serv ices? Never 10/31/2022 Do you belong [...] and heating? Not hard at all 10/31/2022 [facility] of Occupat ional Health - Occupational [...] CDT Appointment Department of Radiation Oncology in [place], [place] [address] [place] [address] Elsie Dewey M.D. [address] [place] [address] documented as of this encounter Visit Diagnoses Not on filedocumented in this encounter
--- OUTSIDE RECORDS SUMMARY | 2023-12-09 10:13 | XMS_ITS | Encounter Summary ---
Author Organization [facility] Address [address] [place] [address] Care Team Providers Care Print Line Feeder Name Role Phone Unavailable Primary Care Provider Unavailabl e Reason for Referral * Radiation Therapy (Routine) - Authorized Specialty Diagnoses / Procedures Referred By Contac t Referred To Contact Diagnoses Malignant Neoplasm Of Lung Right (HCC) Procedures Management Visit Elsie Dewey M.D. [address] [place] [address] [facility] Region Referral ID Status Reason Start Date Expiration Date V isits Requested Visits Authorized [id number] Authorized 09/09/2023 09/08/2024 10 10 Reason for Visit * Radiation Therapy (Routine) - Authorized Specialty Diagnoses / Procedures Referred By Ervin frye Referred To Contact Diagnoses Malignant Neoplasm Of Lung Right (HCC) Procedures Management Visit Elsie Dewey M.D. [address] [place] [address] [facility] Region Referral ID Status Reason Start Date Expiration Date V isits Requested Visits Authorized [id number] Authorized 09/09/2023 09/08/2024 10 10 Encounter Details Date Type Department Care Team (Latest Contact Info) Description 09/24/2023 8:42 AM CDT - 09/24/2023 8:59 AM CDT Hospital Encounter Department of Radiation Oncology in [place], [place] [address] [place] [address] Elsie Dewey M.D. [address] [place] [address] Malignant Neoplasm Of Lung Right (HCC) Social [...] declined 10/31/2022 How often do you attend judaism or islam serv ices? Never 10/31/2022 Do you belong to any clubs o r organizations such as judaism groups, unions, fraternal or athletic groups, or [...] hard at all 10/31/2022 [facility] [place] [facility] of Occupat ional Health - [...] (cGy) First Treatment Last Treatment Elapsed Days [id number] 09/23/2023 09/24/2023 1 Course Summary 09/23/2023 09/24/2023 [...] care of Dr. Mitchell at [facility]. She will contact us with any questions or concerns. We will continue with radiation treatment as planned. Signed by: Bella Win R.N. 09/24/2023 10:26 AM CDT documented in this encounter Plan of Treatment Upcoming Encounters Date Type Department Care Team (Late st Contact Info) Description 12/17/2023 3:30 PM CDT Appointment Department of Radiation Oncology in [address] [phone] Elsie Dewey M.D. [address] [place] [address] Scheduled Orders Name Type Priority Associated Diagnoses Orde r Schedule Management Visit Radiation Oncology Routine Malignant Neoplasm Of Lung Right (HCC) Once for 1 Occurrences starting 09/24/2023 until 09/24/2023 documented as of this encounter Visit Diagnoses Diagnosis Malignant Neoplasm Of Lung Right (HCC) documented in this encounter
--- OUTSIDE RECORDS SUMMARY | 2023-12-09 10:13 | XMS_ITS | Encounter Summary ---
Author Organization [facility] Address [address] [place] [address] Care Team Providers Care Pony Ride Operator Name Role Phone Unavailable Primary Care Provider Unavailabl e Encounter Details Date Type Department Care Team (Late st Contact Info) Description 10/01/2023 Documentation Department of Oncology in [place], [place] [address] [place] [phone] Willow Smith P.A.-Sylvia., P.A. [address] [place] [phone] Social History Tobacco Use Types Packs/Day Years [...] How often do you attend yazdanism or gnosticist serv ices? Never 10/31/2022 Do [...] and heating? Not hard at all 10/31/2022 [facility] of Occupat ional Health [...] of this encounter Progress Notes * Willow Smith P.A.-Sylvia., P.A. - 10/01/2023 4:04 PM CDT Patient was seen and evaluated 09/30/2023 at [facility] for [facility] Oncology outreach. Atthat time, she complained of [...] for evaluation in emergency room for possible TX or PE. Patient declined speaking with me and passed the phone to her . I discussed with him that patient cannot proceed with her chemotherapy until she is seen for workup of these symptoms. This planwas reviewed and approved by supervising medical oncologist, radiation oncology team, as well as patient's supervisory nursing team in [place]. Patient's expressed dissatisfaction that I was delaying her care and being ridiculous. He expressed that he would not be taking her to the emergency room and that they would be transferring her care to [facility] in [place]. Patient's hung up on me. Willow Smith PA-C documented in this encounter Plan of Treatment Upcoming Encounters Date Type Department Care Team (Late st Contact Info) Description 12/17/2023 3:30 PM CDT Appointment Department of Radiation Oncology in [place], [place] [address] [place] [address] Elsie Dewey M.D. [address] [place] [address] documented as of this encounter Visit Diagnoses Not on filedocumented in this encounter
--- OUTSIDE RECORDS SUMMARY | 2023-12-09 10:13 | XMS_ITS | Encounter Summary ---
Author Organization [facility] Address [address] [place] [address] Care Team Providers Care Orthopedics Pediatric Physician Name Role Phone Unavailable Primary Care Provider Unavailabl e Encounter Details Date Type Department Care Team (Latest Contact Info) Description 09/26/2023 12:35 PM CDT - 09/26/2023 11:59 PM CDT Hospital Encounter Department of Radiation Oncology in [place], [place] [address] [place] [address] Elsie Dewey M.D. [address] [place] [address] Discharge Disposition: Home or Self Care Social [...] declined 10/31/2022 How often do you attend mormonism or temple serv ices? Never 10/31/2022 Do you belong to any clubs o r organizations such as mormonism groups, unions, fraternal or athletic groups, or [...] and heating? Not hard at all 10/31/2022 [facility] of Occupat ional Health - Occupational [...] CDT Appointment Department of Radiation Oncology in [place], [place] [address] [place] [address] Elsie Dewey M.D. [address] [place] [address] documented as of this encounter Visit Diagnoses Not on filedocumented in this encounter
--- OUTSIDE RECORDS SUMMARY | 2023-12-09 10:13 | XMS_ITS | Encounter Summary ---
Author Organization [facility] Address [address] [place] [address] Care Team Providers Care Seismographer Name Role Phone Unavailable Primary Care Provider Unavailabl e Encounter Details Date Type Department Care Team (Latest Contact Info) Description 10/01/2023 1:45 PM CDT - 10/01/2023 11:59 PM CDT Hospital Encounter Department of Radiation Oncology in [place], [place] [address] [place] [address] Elsie Dewey M.D. [address] [place] [address] Discharge Disposition: Home or Self Care Social [...] declined 10/31/2022 How often do you attend muslim or shinto serv ices? Never 10/31/2022 Do you belong to any clubs o r organizations such as muslim groups, unions, fraternal or athletic groups, or [...] Not hard at all 10/31/2022 [facility] of Occupat ional Health - Occupational [...] CDT Appointment Department of Radiation Oncology in [place], [place] [address] [place] [address] Elsie Dewey M.D. [address] [place] [address] documented as of this encounter Visit Diagnoses Not on filedocumented in this encounter
--- OUTSIDE RECORDS SUMMARY | 2023-12-09 10:13 | XMS_ITS | Encounter Summary ---
Author Organization [facility] Address [address] [place] [address] Care Team Providers Care Set Up Mold Technician Name Role Phone Unavailable Primary Care Provider Unavailabl e Encounter Details Date Type Department Care Team (Late st Contact Info) Description 09/23/2023 Abstract [place], [place] [address] [place] [phone] Provider, Historical Social History Tobacco Use Types [...] How often do you attend episcopalian or methodist serv ices? Never 10/31/2022 Do [...] CDT Appointment Department of Radiation Oncology in [place], [place] [address] [place] [address] Elsie Dewey M.D. [address] [place] [address] documented as of this encounter Visit Diagnoses Not on filedocumented in this encounter
--- OUTSIDE RECORDS SUMMARY | 2023-12-09 10:13 | XMS_ITS | Encounter Summary ---
Author Organization [facility] Address [address] [place] [address] Care Team Providers Care Coal Weigher Name Role Phone Unavailable Primary Care Provider Unavailabl e Encounter Details Date Type Department Care Team (Latest Contact Info) Description 09/30/2023 1:24 PM CDT - 09/30/2023 1:26 PM CDT Hospital Encounter Department of Radiation Oncology in [place], [place] [address] [place] [phone] Elsie Dewey M.D. [address] [place] [address] Discharge Disposition: Home or Self Care Social [...] declined 10/31/2022 How often do you attend denominational or congregation serv ices? Never 10/31/2022 Do you belong to any clubs o r organizations such as denominational groups, unions, fraternal or athletic groups, or [...] and heating? Not hard at all 10/31/2022 [facility] of Occupat ional Health - Occupational [...] CDT Appointment Department of Radiation Oncology in [place], [place] [address] [place] [address] Elsie Dewey M.D. [address] [place] [address] documented as of this encounter Visit Diagnoses Not on filedocumented in this encounter
--- OUTSIDE RECORDS SUMMARY | 2023-12-09 10:13 | XMS_ITS | Encounter Summary ---
Author Organization [facility] Address [address] [place] [address] Care Team Providers Care Continuous Improvement Coach Name Role Phone Unavailable Primary Care Provider Unavailabl e Encounter Details Date Type Department Care Team (Latest Contact Info) Description 09/25/2023 12:34 PM CDT - 09/25/2023 11:59 PM CDT Hospital Encounter Department of Radiation Oncology in [place], [place] [address] [place] [phone] Elsie Dewey M.D. [address] [place] [address] Discharge Disposition: Home or Self Care Social [...] How often do you attend advent or congregational serv ices? Never 10/31/2022 Do [...] and heating? Not hard at all 10/31/2022 [facility] of Occupat ional Health - [...] CDT Appointment Department of Radiation Oncology in [place], [place] [address] [place] [phone] Elsie Dewey M.D. [address] [place] [address] documented as of this encounter Visit Diagnoses Not on filedocumented in this encounter
--- OUTSIDE RECORDS SUMMARY | 2023-12-09 10:13 | XMS_ITS | Encounter Summary ---
Author Organization [facility] Address [address] [place] [address] Care Team Providers Care Wet Silk Hanger Name Role Phone Unavailable Primary Care Provider Unavailabl e Encounter Details Date Type Department Care Team (Latest Contact Info) Description 10/03/2023 1:19 PM CDT - 10/03/2023 11:59 PM CDT Hospital Encounter Department of Radiation Oncology in [place], [place] [address] [place] [phone] Elsie Dewey M.D. [address] [place] [address] Discharge Disposition: Home or Self Care Social [...] declined 10/31/2022 How often do you attend scientology or sikhism serv ices? Never 10/31/2022 Do you belong to any clubs o r organizations such as scientology groups, unions, fraternal or athletic groups, or [...] CDT Appointment Department of Radiation Oncology in [place], [place] [address] [place] [address] Elsie Dewey M.D. [address] [place] [address] documented as of this encounter Visit Diagnoses Not on filedocumented in this encounter
--- OUTSIDE RECORDS SUMMARY | 2023-12-09 10:13 | XMS_ITS | Encounter Summary ---
Author Organization [facility] Address [address] [place] [address] Care Team Providers Care Drafter Geological Name Role Phone Unavailable Primary Care Provider Unavailabl e Reason for Referral * Specialty Diagnoses / Procedures Referred By Ervin frye Referred To Contact Albertina Stiles APRN, C.N.P., D.N.P. [address] [place] [phone] [facility] Region Referral ID Status Reason Start Date Expiration Date Visits Re quested Visits Authorized Encounter Details Date Type Department Care Team (Latest Contact Info) Description 09/26/2023 12:35 PM CDT - 09/26/2023 2:44 PM CDT Hospital Encounter Department of Radiation Oncology in [place], [place] [address] [place] [phone] Elsie Dewey M.D. [address] [place] [phone] Kirsten Bella RGeetha [address] [place] [phone] Malignant Neoplasm Of Lung Right (HCC) Social [...] How often do you attend holiness or bahai serv ices? Never 10/31/2022 Do you belong to any clubs o r organizations such as holiness groups, unions, fraternal or athletic groups, or [...] heating? Not hard at all 10/31/2022 [facility] of [facility]at [facility] - Occupational Stress Questionnaire Answer Date [...] CDT Appointment Department of Radiation Oncology in [place], [place] [address] [place] [address] [place] [address] Scheduled Referrals Name Type Priority Associated Diagnoses Order Schedule Radiation Oncology - Nurse education visit (clinic) Outpatient Referral Routine Malignant Neoplasm Of Lung Right (HCC) Once for 1 Occurrences starting 09/26/2023 until 09/26/2023 documented as of this encounter Visit Diagnoses Diagnosis Malignant Neoplasm Of Lung Right (HCC) documented in this encounter
--- OUTSIDE RECORDS SUMMARY | 2023-12-09 10:13 | XMS_ITS | Encounter Summary ---
Author Organization [facility] Address [address] [place] [address] Care Team Providers Care Salt Miner Name Role Phone Unavailable Primary Care Provider Unavailabl e Encounter Details Date Type Department Care Team (Latest Contact Info) Description 09/27/2023 12:34 PM CDT - 09/27/2023 11:59 PM CDT Hospital Encounter Department of Radiation Oncology in [place], [place] [address] [place] [phone] Elsie Dewey M.D. [address] [place] [address] Discharge Disposition: Home or Self Care Social [...] often do you attend latter day or uatsdin serv ices? Never 10/31/2022 Do [...] CDT Appointment Department of Radiation Oncology in [place], [place] [address] [place] [address] Elsie Dewey M.D. [address] [place] [address] documented as of this encounter Visit Diagnoses Not on filedocumented in this encounter
--- OUTSIDE RECORDS SUMMARY | 2023-12-09 10:13 | XMS_ITS | Encounter Summary ---
Author Organization [facility] Address [address] [place] [address] Care Team Providers Care Subway Car Repairer Name Role Phone Unavailable Primary Care Provider Unavailabl e Encounter Details Date Type Department Care Team (Latest Contact Info) Description 10/04/2023 1:18 PM CDT - 10/04/2023 11:59 PM CDT Hospital Encounter Department of Radiation Oncology in [place], [place] [address] [place] [phone] Elsie Dewey M.D. [address] [place] [address] Discharge Disposition: Home or Self Care Social [...] How often do you attend buddhist or restorationism serv ices? Never 10/31/2022 Do [...] hard at all 10/31/2022 [facility] of Occupat ional Health - Occupational [...] CDT Appointment Department of Radiation Oncology in [place], [place] [address] [place] [address] Elsie Dewey M.D. [address] [place] [address] documented as of this encounter Visit Diagnoses Not on filedocumented in this encounter
--- OUTSIDE RECORDS SUMMARY | 2023-12-09 10:13 | XMS_ITS | Encounter Summary ---
Author Organization [facility] Address [address] [place] [address] Care Team Providers Care Technical Sales Representatives Name Role Phone Unavailable Primary Care Provider Unavailabl e Reason for Referral * Radiation Therapy (Routine) - Authorized Specialty Diagnoses / Procedures Referred By Contac t Referred To Contact Diagnoses Malignant Neoplasm Of Lung Right (HCC) Procedures Management Visit Elsie Dewey M.D. [address] [place] [address] [facility] Region Referral ID Status Reason Start Date Expiration Date V isits Requested Visits Authorized [id number] Authorized 09/09/2023 09/08/2024 10 10 Reason for Visit * Radiation Therapy (Routine) - Authorized Specialty Diagnoses / Procedures Referred By Ervin frye Referred To Contact Diagnoses Malignant Neoplasm Of Lung Right (HCC) Procedures Management Visit Elsie Dewey M.D. [address] [place] [address] [facility] Region Referral ID Status Reason Start Date Expiration Date V isits Requested Visits Authorized [id number] Authorized 09/09/2023 09/08/2024 10 10 Encounter Details Date Type Department Care Team (Latest Contact Info) Description 10/01/2023 1:44 PM CDT Hospital Encounter Department of Radiation Oncology in [place], [place] [address] [place] [phone] Elsie Dewey M.D. [address] [place] [address] Malignant Neoplasm Of Lung Right (HCC) Social [...] How often do you attend lutheran or mu-ism serv ices? Never 10/31/2022 Do you belong [...] heating? Not hard at all 10/31/2022 [facility] of Occupat ional Health - Occupational [...] under the care of Dr. Mitchell at [facility]. Chemotherapy held on October 01, 2023 due to chesttightness. Patient declined ER visit and was seen by primary care provider same day. Treatment Course: 2xLung Plan ID Fractions Dose / Fraction (cGy) Dose Treated (cGy) Dose Planned (cGy) First Treatment Last Treatment Elapsed Days [id number] 200 1400 6000 09/23/2023 10/01/2023 8 Course [...] due to report of chest tightness from [facility]. Patient was evaluated by primary care provider at [facility] earlier today. Patient denies chest pain/tightness at our appointment today. Vital signs stable. Patient has been weekly carboplatin and taxol under the care of Dr. Mitchell at [facility]. We will continue to see patient [...] CDT Appointment Department of Radiation Oncology in [place], [place] [address] [place] [address] Elsie Dewey M.D. [address] [place] [address] Scheduled Orders Name Type Priority Associated Diagnoses Orde r Schedule Management Visit Radiation Oncology Routine Malignant Neoplasm Of Lung Right (HCC) Once for 1 Occurrences starting 10/01/2023 until 10/01/2023 documented as of this encounter Visit Diagnoses Diagnosis Malignant Neoplasm Of Lung Right (HCC) documented in this encounter
--- OUTSIDE RECORDS SUMMARY | 2023-12-09 10:13 | XMS_ITS | Encounter Summary ---
Author Organization [facility] Address [address] [place] [address] Care Team Providers Care Crimping Machine Operator For Metal Name Role Phone Unavailable Primary Care Provider Unavailabl e Encounter Details Date Type Department Care Team (Latest Contact Info) Description 09/23/2023 1:23 PM CDT - 09/23/2023 11:59 PM CDT Hospital Encounter Department of Radiation Oncology in [place], [place] [address] [place] [phone] Elsie Dewey M.D. [address] [place] [address] Discharge Disposition: Home or Self Care Social [...] declined 10/31/2022 How often do you attend alevism or temple serv ices? Never 10/31/2022 Do you belong to any clubs o r organizations such as alevism groups, unions, fraternal or athletic groups, or [...] and heating? Not hard at all 10/31/2022 [facility] of Occupat ional Health [...] CDT Appointment Department of Radiation Oncology in [place], [place] [address] [place] [address] Elsie Dewey M.D. [address] [place] [address] documented as of this encounter Visit Diagnoses Not on filedocumented in this encounter
--- OUTSIDE RECORDS SUMMARY | 2023-12-09 10:13 | XMS_ITS | Encounter Summary ---
Author Organization [facility] Address [address] [place] [address] Care Team Providers Care Fertilizer Supervisor Name Role Phone Unavailable Primary Care Provider Unavailabl e Reason for Visit * Radiation Therapy (Routine) - Closed Specialty Diagnoses / Procedures Referred By Ervin frye Referred To Contact Diagnoses Malignant Neoplasm Of Lung Right (HCC) Procedures Initial Rad Onc Treatment Planning CT Simulation Elsie Dewey M.D. [address] [place] [address] [facility] Region Referral ID Status Reason Start Date Expiration Date Visits Re quested Visits Authorized [id number] Closed 09/09/2023 09/08/2024 1 1 Encounter Details Date Type Department Care Team (Latest Contact Info) Description 09/11/2023 12:06 PM CDT - 09/13/2023 3:24 PM CDT Hospital Encounter Department of Radiation Oncology in [place], [place] [address] [place] [phone] Elsie Dewey M.D. [address] [place] [phone] Bella Win R.N. [address] [place] [phone] Malignant Neoplasm Of Lung Right (HCC) [...] How often do you attend episcopalian or faith serv ices? Never 10/31/2022 Do [...] and heating? Not hard at all 10/31/2022 [facility] of Occupat ional Health - Occupational Stress [...] CDT Appointment Department of Radiation Oncology in [place], [place] [address] [place] [phone] Elsie Dewey M.D. [address] [place] [address] documented as of this encounter Visit Diagnoses [...]
--- OUTSIDE RECORDS SUMMARY | 2023-12-09 10:14 | XMS_ITS | Encounter Summary ---
Author Organization [facility] Address [address] [place] [address] Care Team Providers Care Linux Kernel Engineer Name Role Phone Unavailable Primary Care Provider Unavailabl e Encounter Details Date Type Department Care Team (Late st Contact Info) Description 09/05/2023 7:15 AM CDT - 09/05/2023 10:05 AM CDT Surgery RST ROMB MAIN OR [address] [place] [phone] Phil Abreu M.D. [address] [place] [phone] BRONCHOSCOPY FLEXIBLE, ENDOBRONCHIAL ULTRASOUND-GUIDED TRANSBRONCHIAL NEEDLE ASPIRATION. [...] How often do you attend mandaeism or yarsanism serv ices? Never 10/31/2022 Do [...] Instructions After Sedation or Anesthesia for Adults (Tunisian) documented in this encounter Medications at Time [...] I believe was due to the more [id number] degree position and the size of the [...] Appointment Department of Radiation Oncology in [address] [place] [address] Elsie Dewey M.D. [address] [place] [address] documented as of this encounter Procedures Procedure [...] on this date for clinical details. Phil MARIA FLUOROSCOPY PRO CEDURES 152 HOS LOS RST [...] ry studies (cone 22C3, [employer] [place], [place], [place]; using a proprietary detection system (D1): [...] reagent. Its performance characteristics were determined by [facility] in a manner consistent with CLIA requirements. This test has not been cleared or approved by the U.S. Food and Drug Administration. Test results for (IHC or SARA) testing are valid for specimens fixed between 6 and 72 hours. ??Delay to fixation, under fixation or over fixation fall outside of guidelines and may affect these results. Genetic testing for [facility] Solid Tumor Panel (MCSTP) will [...] diagnosis. Immunohistochemica l stains were performed at [facility] (block A1). KRT7, Napsin A, TTF1(SPT24), p40.(A) 09/12/2023 8:24 AM CDT DTL Aspirate (Lung, Right Upper Lobe) 09/05/2023 8:10 AM CDT Tissue (Lung, Right Upper Lobe) 09/05/2023 9:11 AM CDT Aspirate (Lymph Node) 09/05/2023 9:38 AM CDT Aspirate (Lymph Node) 09/05/2023 9:43 AM CDT Phil Abreu M.D. LAB SURG PATH ORDER [facility]ENO [facility] [address] [place] [address], [facility] DTL [address] [place] [address] documented in this encounter Visit Diagnoses Diagnosis [...]
--- OUTSIDE RECORDS SUMMARY | 2023-12-09 10:14 | XMS_ITS | Encounter Summary ---
Author Organization [facility] Address [address] [place] [address] Care Team Providers Care Skin Care Therapist Name Role Phone Unavailable Primary Care Provider Unavailabl e Reason for Referral * MRI/CAT/PET Scan (Routine) - Closed Specialty Diagnoses / Procedures Referred By Ervin frye Referred To Contact Radiology Diagnoses Malignant Neoplasm Of Lung Left (HCC) Nodules Pulmonary Multiple Lymphadenopathy Mediastinum Abnormal Positron Emission Tomography Scan Procedures CT Chest without IV Contrast Nilo Pickett APRN, C.N.P., D.N.P. [address] [place] [phone] [facility] Referral ID Status Reason Start Date Expiration Date Visits Re quested Visits Authorized [id number] Closed 08/29/2023 08/28/2024 1 1 Reason for Visit * MRI/CAT/PET Scan (Routine) - Closed Specialty Diagnoses / Procedures Referred By Ervin frye Referred To Contact Radiology Diagnoses Malignant Neoplasm Of Lung Left (HCC) Nodules Pulmonary Multiple Lymphadenopathy Mediastinum Abnormal Positron Emission Tomography Scan Procedures CT Chest without IV Contrast Nilo Pickett APRN, C.N.P., D.N.P. [address] [place] [phone] [facility] Referral ID Status Reason Start Date Expiration Date Visits Re quested Visits Authorized [id number] Closed 08/29/2023 08/28/2024 1 1 Encounter Details Date Type Department Care Team (Latest Contact Info) Description 09/04/2023 10:55 AM CDT - 09/04/2023 11:58 AM CDT Hospital Encounter Department of Radiology, [facility], in [place], [place] [address] [place] [address] Nilo Pickett APRN, C.N.P., D.N.P. [address] [place] [address] Malignant Neoplasm Of Lung Left (HCC); Nodules [...] How often do you attend faith or mu-ism serv ices? Never 10/31/2022 Do [...] CDT Appointment Department of Radiation Oncology in [place], [place] [address] [place] [address] Elsie Dewey M.D. [address] [place] [address] documented as of this encounter Procedures Procedure [...]
--- OUTSIDE RECORDS SUMMARY | 2023-12-09 10:14 | XMS_ITS | Encounter Summary ---
Author Organization [facility] Address [address] [place] [address] Care Team Providers Care Palliative Care Nurse Name Role Phone Unavailable Primary Care Provider Unavailabl e Reason for Visit * Reason Onset Date Comments Results 09/10/2023 Encounter Details Date Type Department Care Team (Late st Contact Info) Description 09/10/2023 Clinical Communication Department of Radiation Oncology in [place], [place] [address] [place] [phone] Albertina Stiles APRN, C.N.P., D.N.P. [address] [place] [phone] Results Social History Tobacco Use Types Packs/Day [...] How often do you attend mosque or evangelical serv ices? Never 10/31/2022 Do you belong [...] and heating? Not hard at all 10/31/2022 [facility] of Occupat ional Health - Occupational Stress [...] CDT Appointment Department of Radiation Oncology in [place], [place] [address] [place] [phone] Elsie Dewey M.D. [address] [place] [address] documented as of this encounter Visit Diagnoses Not on filedocumented in this encounter
--- OUTSIDE RECORDS SUMMARY | 2023-12-09 10:14 | XMS_ITS | Encounter Summary ---
Author Organization [facility] Address [address] [place] [address] Care Team Providers Care Regional Account Manager Name Role Phone Unavailable Primary Care Provider Unavailabl e Encounter Details Date Type Department Care Team (Latest Contact Info) Description 09/05/2023 5:44 AM CDT - 09/05/2023 11:57 AM CDT Hospital Encounter RST ROMB MAIN OR [address] [place] [address] Phil Abreu M.D. [address] [place] [phone] Malignant Neoplasm Of Lung Left (HCC); Nodules [...] How often do you attend evangelical or episcopalian serv ices? Never 10/31/2022 Do you belong [...] Not hard at all 10/31/2022 [facility] of Occupat ional Health - Occupational Stress [...] Instructions After Sedation or Anesthesia for Adults (Bulgarian) documented in this encounter Medications at Time [...] I believe was due to the more [id number] degree position and the size of the [...] CDT Appointment Department of Radiation Oncology in [place], [place] [address] [place] [phone] Elsie Dewey M.D. [address] [place] [address] documented as of this encounter Procedures Procedure [...] ry studies (cone 22C3, [employer] [place], [place], [place]; using a proprietary detection system (D1): [...] performance characteristics were determined by [facility] in a manner consistent with CLIA requirements. This test has not been cleared or approved by the U.S. Food and Drug Administration. Test results for (IHC or SARA) testing are valid for specimens fixed between 6 and 72 hours. ??Delay to fixation, under fixation or over fixation fall outside of guidelines and may affect these results. Genetic testing for [facility] Solid Tumor Panel (MCSTP) will [...] l stains were performed at [facility] (block A1). KRT7, Napsin A, TTF1(SPT24), p40.(A) 09/12/2023 8:24 AM CDT DTL Aspirate (Lung, Right Upper Lobe) 09/05/2023 8:10 AM CDT Tissue (Lung, Right Upper Lobe) 09/05/2023 9:11 AM CDT Aspirate (Lymph Node) 09/05/2023 9:38 AM CDT Aspirate (Lymph Node) 09/05/2023 9:43 AM CDT Phil Abreu M.D. LAB SURG PATH ORDER MAGDALENO [facility] [address] [place] [address], [facility] DTL [address] [facility] [address] [place] [address] documented in this encounter Visit Diagnoses Diagnosis [...]
--- OUTSIDE RECORDS SUMMARY | 2023-12-09 10:14 | XMS_ITS | Encounter Summary ---
Author Organization [facility] Address [address] [place] [phone] Care Team Providers Care Collaborative Teacher Name Role Phone Unavailable Primary Care Provider Unavailabl e Reason for Referral * Specialty Diagnoses / Procedures Referred By Cassac t Referred To Contact Albertina Stiles APRN, C.N.PJessica, D.N.PJessica 200 [place] [address] [facility] Region Referral ID Status Reason Start Date Expiration Date Visits Re quested Visits Authorized * Specialty Diagnoses / Procedures Referred By Contac t Referred To Contact Albertina Stiles APRN, C.N.PJessica, D.N.PJessica 200 [place] [address] [facility] Region Referral ID Status Reason Start Date Expiration Date Visits Re quested Visits Authorized * Radiation Therapy (Routine) - Authorized Specialty Diagnoses / Procedures Referred By Contac t Referred To Contact Diagnoses Malignant Neoplasm Of Lung Right (HCC) Procedures Management Visit Elsie Dewey M.D. [address] [place] [phone] [facility] Region Referral ID Status Reason Start Date Expiration Date V isits Requested Visits Authorized [id number] Authorized 09/09/2023 09/08/2024 10 10 * Radiation Therapy (Routine) - Authorized Specialty Diagnoses / Procedures Referred By Contac t Referred To Contact Diagnoses Malignant Neoplasm Of Lung Right (HCC) Procedures Prior Auth Rad Tx Elsie Dewey M.D. 200 [place] [address] [facility] Referral ID Status Reason Start Date Expiration Date V isits Requested Visits Authorized [id number] Authorized 09/09/2023 09/08/2024 1 1 * Radiation Therapy (Routine) - Closed Specialty Diagnoses / Procedures Referred By Contac t Referred To Contact Diagnoses Malignant Neoplasm Of Lung Right (HCC) Procedures Initial Rad Onc Treatment Planning CT Simulation Elsie Dewey M.D. 200 [place] [address] [facility] Region Referral ID Status Reason Start Date Expiration Date Visits Re quested Visits Authorized [id number] Closed 09/09/2023 09/08/2024 1 1 * Outpatient (Routine) - Closed Specialty Diagnoses / Procedures Referred By Contac t Referred To Contact Radiation Oncology Danielle Glover P.A.-C., M.S. [address] [place] [phone] Elsie Dewey M.D. [address] [place] [phone] Referral ID Status Reason Start Date Expiration Date Visits Re quested Visits Authorized [id number] Closed 08/29/2023 02/27/2025 1 1 Scheduling Instructions MRI brain and bronchoscopy prior in [place] Reason for Visit * Outpatient (Routine) - Closed Specialty Diagnoses / Procedures Referred By Contfely t Referred To Contact Radiation Oncology Danielle Glover P.A.-C., M.S. [address] [place] [phone] Elsie Dewey M.D. [address] [place] [phone] Referral ID Status Reason Start Date Expiration Date Visits Re quested Visits Authorized [id number] Closed 08/29/2023 02/27/2025 1 1 Encounter Details Date Type Department Care Team (Latest Contact Info) Description 09/09/2023 2:53 PM CDT - 09/09/2023 4:42 PM CDT Hospital Encounter Department of Radiation Oncology in [place], [place] [address] [place] [address] Elsie Dewey M.D. [address] [place] [phone] Malignant Neoplasm Of Lung Left (HCC) (Primary [...] How often do you attend voodoo or oriental orthodox serv ices? Never 10/31/2022 Do you belong [...] and heating? Not hard at all 10/31/2022 [facility] [place] of Occupat ional Health - Occupational Stress [...] underwent a brain MRI last Saturday at [facility]. She returns now to receive the results. 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 14. April [...] calcified left apical nodule. No thoracic adenopathy. . November 29, 2022: PFTs demonstrate and FEV1 [...] MRI has not yet been finalized by [facility]. I have reviewed the imaging and see [...] We discussed the acute as well as terminal operations manager risks, including, but not limited to fatigue, [...] M.D. 09/09/2023 4:39 PM CDT Radiation Oncology [facility] [address] [place] [phone] documented in this encounter Plan of Treatment Upcoming Encounters Date Type Department Care Team (Late st Contact Info) Description 12/17/2023 3:30 PM CDT Appointment Department of Radiation Oncology in [address] [phone] Elsie Dewey M.D. 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
--- OUTSIDE RECORDS SUMMARY | 2023-12-09 10:14 | XMS_ITS | Encounter Summary ---
Author Organization [facility] Address [address] [place] [address] Care Team Providers Care Insurance Sales Producer Name Role Phone Unavailable Primary Care Provider Unavailabl e Encounter Details Date Type Department Care Team (Late st Contact Info) Description 08/30/2023 Clinical Communication Department of Radiation Oncology in [place], [place] [address] [place] [phone] Elsie Dewey M.D. [address] [place] [phone] Social History Tobacco Use Types Packs/Day Years [...] How often do you attend cheondoism or baptism serv ices? Never 10/31/2022 Do [...] 10/31/2022 [facility] of Occupat ional [facility] - Occupational Stress Questionnaire Answer Date [...] CDT Appointment Department of Radiation Oncology in [place], [place] [address] [place] [phone] Elsie Dewey M.D. [address] [place] [address] documented as of this encounter Visit Diagnoses Not on filedocumented in this encounter
--- OUTSIDE RECORDS SUMMARY | 2023-12-09 10:14 | XMS_ITS | Encounter Summary ---
Author Organization [facility] Address [address] [place] [address] Care Team Providers Care Faucets Assembler Name Role Phone Unavailable Primary Care Provider Unavailabl e Reason for Referral * Radiation Therapy (Routine) - Closed Specialty Diagnoses / Procedures Referred By Ervin frye Referred To Contact Diagnoses Malignant Neoplasm Of Lung Right (HCC) Procedures Initial Rad Onc Treatment Planning CT Simulation Elsie Dewey M.D. 200 [place] [address] [facility] Region Referral ID Status Reason Start Date Expiration Date Visits Re quested Visits Authorized [id number] Closed 09/09/2023 09/08/2024 1 1 Reason for Visit * Radiation Therapy (Routine) - Closed Specialty Diagnoses / Procedures Referred By Ervin frye Referred To Contact Diagnoses Malignant Neoplasm Of Lung Right (HCC) Procedures Initial Rad Onc Treatment Planning CT Simulation Elsie Dewey M.D. 200 [place] [address] [facility] Region Referral ID Status Reason Start Date Expiration Date Visits Re quested Visits Authorized [id number] Closed 09/09/2023 09/08/2024 1 1 Encounter Details Date Type Department Care Team (Latest Contact Info) Description 09/11/2023 12:30 PM CDT - 09/11/2023 3:09 PM CDT Hospital Encounter Department of Radiation Oncology in [place], [place] [address] [place] [phone] Elsie Dewey M.D. [address] [place] [address] Malignant Neoplasm Of Lung Right (HCC) Social [...] declined 10/31/2022 How often do you attend temple or bahai serv ices? Never 10/31/2022 Do you belong to any clubs o r organizations such as temple groups, unions, fraternal or athletic groups, or [...] Not hard at all 10/31/2022 [facility] of Occupat ional Health - Occupational [...] to sleep or slept in a senior living (including now)? No 10/31/2022 Nutrition Answer Date Recorded On average, how many serving s of fruits and vegetables do you eat per day (serving size is equal to 1 cup or approximately the size of a tennis ball)? 2-3 10/31/2022 Dental Answer Date Recorded Dental: Regular Dentist No 11/01/19 23 Employment Answer Date Recorded Employment status [...] of this encounter Procedure Notes * Ese Castaneda, RTT - 09/11/2023 1:00 PM CDTAssociated Order(s): [...] imaging was appropriate and completed without incident. Nursery Supervisor use:No Associated attestation - Elsie Dewey M.D. - 09/11/2023 3:09 PM CDT I was present during all critical and eubanks portions of the procedure(s) and immediately available [facility] services the entire duration. See note for details. documented in this encounter Plan of Treatment Upcoming Encounters Date Type Department Care Team (Late st Contact Info) Description 12/17/2023 3:30 PM CDT Appointment Department of Radiation Oncology in [address] [phone] Elsie Dewey M.D. [address] [place] [address] documented as of this encounter Procedures Procedure [...]
--- OUTSIDE RECORDS SUMMARY | 2023-12-09 10:14 | XMS_ITS | Encounter Summary ---
Author Organization [facility] Address [address] [place] [address] Care Team Providers Care Communications Controller Name Role Phone Unavailable Primary Care Provider Unavailabl e Encounter Details Date Type Department Care Team (Late st Contact Info) Description 09/09/2023 Orders Only Division of Pulmonary Medicine in [place], [place] [address] [place] [phone] Nilo Pickett APRN, C.N.P., D.N.P. 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 Never 10/31/2022 [...] heating? Not hard at all 10/31/2022 [facility] of Occupat ional Health - Occupational [...] CDT Appointment Department of Radiation Oncology in [place], [place] [address] [place] [phone] Elsie Dewey M.D. 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
--- OUTSIDE RECORDS SUMMARY | 2023-12-09 10:14 | XMS_ITS | Encounter Summary ---
Author Organization [facility] Address [address] [place] [address] Care Team Providers Care Preschool Teacher Aide Name Role Phone Unavailable Primary Care [...] How often do you attend baptism or caodaism serv ices? Never 10/31/2022 Do [...] and heating? Not hard at all 10/31/2022 [facility] [place] of Occupat ional Health - Occupational Stress [...] CDT Appointment Department of Radiation Oncology in [place], [place] [address] [place] [phone] Elsie Dewey M.D. [address] [place] [address] documented as of this encounter Procedures Procedure [...]
--- OUTSIDE RECORDS SUMMARY | 2023-12-09 10:14 | XMS_ITS | Encounter Summary ---
Author Organization [facility] Address [address] [place] [address] Care Team Providers Care Dairy Equipment Mechanic Name Role Phone Unavailable Primary Care Provider Unavailabl e Encounter Details Date Type Department Care Team (Latest Contact Info) Description 09/04/2023 11:59 AM CDT - 09/04/2023 11:59 PM CDT Hospital Encounter Department of Laboratory Medicine and Pathology, [facility], in [place], [place] [address] [place] [address] Nilo Pickett APRN, C.N.P., D.N.P. [address] [place] [address] Malignant Neoplasm Of Lung Left (HCC); Nodules [...] declined 10/31/2022 How often do you attend taoist or christianity serv ices? Never 10/31/2022 Do you belong to any clubs o r organizations such as taoist groups, unions, fraternal or athletic groups, or [...] and heating? Not hard at all 10/31/2022 [facility] [place] of Occupat ional Health - Occupational Stress [...] CDT Appointment Department of Radiation Oncology in [place], [place] [address] [place] [address] Elsie Dewey M.D. [address] [place] [address] documented as of this encounter Procedures Procedure [...] APRN, C.N.P., D.N.P. L AB BLOOD ADD-ON [facility] [place] [address] [place] [address], [facility] [address] [place] [address] * (ABNORMAL) Comprehensive Metabolic Panel (09/04/2023 12:11 PM CDT) Pathologist [facility] [place] Potassium, S 4.4 3.6 - 5.2 mmol/L [...] APRN, C.N.P., D.N.P. L AB BLOOD ADD-ON [facility] [address] [place] [address], [facility] DTL [facility] [address] [place] [address] * (ABNORMAL) CBC with Differential, Blood (09/04/2023 [...] APRN, C.N.P., D.N.P. L AB BLOOD ADD-ON [facility] [place] [address] [place] [address], [place] DTL [facility] [address] [place] [address] [facility] [address] [place] [address] documented in this encounter Visit Diagnoses Diagnosis Malignant Neoplasm Of Lung Left (HCC) Nodules Pulmonary Multiple Lymphadenopathy Mediastinum Abnormal Positron Emission Tomography Scan Stroke Cerebrovascular Accident Personal History Anemia Microcytic documented in this encounter
--- OUTSIDE RECORDS SUMMARY | 2023-12-09 10:14 | XMS_ITS | Encounter Summary ---
Author Organization [facility] Address [address] [place] [address] Care Team Providers Care Clearing House Clerk Name Role Phone Unavailable Primary Care Provider Unavailabl e Encounter Details Date Type Department Care Team (Late st Contact Info) Description 09/05/2023 7:38 AM CDT Anesthesia Event [facility]ST [facility] MAIN OR [address] [place] [phone] Darshana Reyes M.D. [address] [place] [phone] Syd Patton M.D., Ph.D. [address] [place] [phone] Anesthesia Record Procedure Summary Procedure Name Responsible [...] How often do you attend temple or pentecostalism serv ices? Never 10/31/2022 Do you belong [...] place to sleep or slept in a fpc (including now)? No 10/31/2022 Nutrition Answer Date [...] Procedure Summary Date: 09/05/23 Room / Location: [place] [address] / [facility] in [place], [place] Anesthesia Start: 0738 Anesthesia Stop: 1018 Procedures: BRONCHOSCOPY FLEXIBLE, ENDOBRONCHIAL ULTRASOUND-GUIDED TRANSBRONCHIAL NEEDLE [...] euvolemic * Anesthesia Procedure Notes - Dariusz Pacheco APRN, STEVE, DNAP - 09/05/2023 7:56 AM CDTAssociated Order(s): [...] ETT location: oral VL device: glide scope Morrill scope blade size: 3 Tube size: 8 [...] Abnormal Positron Emission Tomography Scan [R94.8]. Location: [address] 01 [facility] in [place], [place] Providers: Phil Abreu M.D. Pertinent components [...] with patient /legal guardian or through an traffic signal repairer. Risks/Benefits/Alternatives of Blood transfusion discussed with patient [...] CDT Appointment Department of Radiation Oncology in [place], [place] [address] [place] [address] Elsie Dewey M.D. [address] [place] [address] documented as of this encounter Procedures Procedure Name Priority Date/Time Associated Diagnosis Comments LDA ANE ENDOTRACHEAL AIRWAY Routine 09/05/2023 7:54 AM CDT documented in this encounter Results * LDA ANE ENDOTRACHEAL AIRWAY (09/05/2023 7:54 AM CDT) Narrative Dariusz Pacheco APRN, STEVE, DNAP - 09/05/2023 7:54 AM CDT Dariusz [...] ETT location: oral VL device: glide scope Morrill scope blade size: 3 Tube size: 8 [...]
--- OUTSIDE RECORDS SUMMARY | 2023-12-09 10:14 | XMS_ITS | Encounter Summary ---
Author Organization [facility] Address [address] [place] [address] Care Team Providers Care Thread Singer Name Role Phone Unavailable Primary Care Provider Unavailabl e Encounter Details Date Type Department Care Team (Late st Contact Info) Description 09/06/2023 7:00 AM CDT Lab RST RO LMP [address] [place] [phone] Nilo Pickett, SELINA, C.N.P., D.N.P. [address] [place] [phone] Malignant Neoplasm Of Lung Left (HCC); Nodules [...] declined 10/31/2022 How often do you attend yazidism or moravian serv ices? Never 10/31/2022 Do you belong to any clubs o r organizations such as yazidism groups, unions, fraternal or athletic groups, or [...] CDT Appointment Department of Radiation Oncology in [place], [place] [address] [place] [address] Elsie Dewey M.D. [address] [place] [address] documented as of this encounter Procedures Procedure Name Priority Date/Time Associated Diagnosis Comments [facility] SOLID TUMOR PANEL Routine 09/05/2023 10:05 AM CDT Malignant Neoplasm Of Lung Left (HCC) Nodules Pulmonary Multiple Lymphadenopathy Mediastinum Abnormal Positron Emission Tomography Scan documented in this encounter Results * [facility] Solid Tumor Panel, Next-Generation Sequencing, Tumor (09/05/2023 [...] the 2017 AMP/ASCO/CAP Joint consensus recommendation [PMID [id number]] as follows: Tier 1 - Variant with strong clinical significance; Tier 2 - Variant with potential clinical significance; Tier 3 - Variant of unknown (uncertain) clinical significance; Tier 4 - Benign or likely benign variant. Tiers 1 and 2 variants are clinically significant mutations and rearrangements. Only Tiers 1 and 2 variants are interpreted. A complete gene list is available online ([email or web address] ; test code MCSTP) 09/25/2023 6:50 PM CDT DTL Clinical Trials Clinical trials associated with Tiers 1 and 2 variants that have a status of recruiting are included in the table above. 09/25/2023 6:50 PM CDT DTL Variants of Uncertain Significance The following VARIANTS OF UNCERTAIN SIGNIFICANCE were identified: APC, c.6989C>T (p.M7145M) (VAF: 15%) AR, c.170_172del (p.L57del) (VAF: 8.8%) ARID1A, c.472C>T (p.P158S) (VAF: 40%) BCL10, c.529C>G (p.L177V) (VAF: 21%) BCOR, c.1342G>C (p.V448L) (VAF: 19%) CBL, c.647G>A (p.S216N) (VAF: 33%) EGFR, c.1881-633C>T (VAF: 26%) EIF4A2, c.109G>T (p.D37Y) (VAF: 36%) EIF4A2, c.948G>A (p.M316I) (VAF: 38%) EPHA5, c.634C>A (p.L212I) (VAF: 32%) ETS1, c.215-63783O>A (VAF: 21%) FANCA, c.2647C>G (p.L883V) (VAF: 15%) FANCL, c.1028G>C (p.R343T) (VAF: 17%) FGF10, c.325+1116_325+1117 delinsAT (VAF: 58%) FGFR3, c.2274+3G>C (VAF: 14%) FGFR4, c.940G>A (p.E314K) (VAF: 17%) FLCN, c.652C>T (p.R218C) (VAF: 50%) GNA13, c.412G>C (p.E138Q) (VAF: 56%) TAG88JB5, c.2143G>C (p.E715Q) (VAF: 20%) IGF1R, c.3680A>T (p.U6774X) (VAF: 46%) KDR, c.3445C>A (p.U6528F) (VAF: 32%) KLHL6, c.1300A>G (p.R434G) (VAF: 59%) LRP1B, c.92515F>T (p.R4965U) (VAF: 34%) MDC1, c.3875G>A (p.A6211L) (VAF: 2.1%) MDC1, c.3774_3775delinsAT (p.C3997V) (VAF: 2.5%) MDC1, c.3698A>G (p.J1473G) (VAF: 2.5%) MDC1, c.3528_3529delinsAT (p.I7931N) (VAF: 3%) MST1, c.1637C>T (p.T546M) (VAF: 3.4%) NOTCH2, c.4238T>A (p.Z1930D) (VAF: 39%) PAX8, c.1087+26T>A (VAF: 37%) FLX7M0N, c.3956G>C (p.R6208A) (VAF: 23%) PIK3R2, c.1456G>A (p.E486K) (VAF: 16%) PTCH1, c.1882C>G (p.Q628E) (VAF: 14%) PTPRD, c.3001G>A (p.F9442J) (VAF: 14%) PTPRT, c.91G>C (p.G31R) (VAF: 38%) SMARCA4, c.2810G>T (p.S937I) (VAF: 16%) TGFBR1, c.722C>T (p.S241L) (VAF: 10%) TP53, c.97-52G>A (VAF: 27%) TSC2, c.1318G>T (p.G440C) (VAF: 19%) ZBTB7A, c.657C>A (p.F219L) (VAF: 18%) ZFHX3, c.7576C>G (p.U9970A) (VAF: 19%) 09/25/2023 6:50 PM CDT DTL Specimen Cells 09/25/2023 6:50 PM CDT DTL Tissue ID [id number] D1 09/25/2023 6:50 PM CDT DTL Method Microscopic examination was performed by a pathologist to identify areas of tumor for enrichment by macrodissection. DNA and RNA were extracted from FFPE or cytology slides, and next generation sequencing using the RFIDeas chemistry was performed. The following variant types and molecular profiles were evaluated: tumor mutation burden (TMB) status, microsatellite instability (MSI) status, sequence variants involving exonic regions and exon/intron boundaries of 515 genes, gene amplifications in 59 genes, fusions involving any of 55 genes, and transcript variants in 3 genes. AMP/ASCO/CAP classifications and clinical trials and therapeutic information were powered by [employer] (FitBionicI-II). Variant nomenclature is based on build GRCh37 (hg19). For targeted gene lists, details about gene transcripts (GenBank accession numbers), specific targeted regions of each gene, and additional information on this test, see [email or web address]. [employer] (Test ID MCSTP). 09/25/2023 6:50 PM CDT [...] of heterozygosity) and sequencing artifact/misalignme nt [PMID: 04482274, PMID: 91555110]. Tumor Purity: A tumor percentage of greater [...] developed and its performance characteristics determined by [facility] in a manner consistent with CLIA requirements. [...] instability (MSI-H)/defective DNA mismatch repair (dMMR) [PMID: 72519839, PMID: 51094248, PMID: 91188842]. 1) KRAS c.34G>T (p.G12C) (VAF: 74%) GENE/VARIANT SUMMARY KRAS G12C ([id number]) is an activating mutation. KRAS encodes a signaling protein member of the New family [PMID:68427906, PMID:09418767, PMID:14830195]. Activating KRAS alterations, mainly through mutations at codons G12, G13 and Q61, result in oncogenic activation of downstream signaling pathways, including the Je/MEK/ERK pathway [PMID:49895804, PMID:8801853]. The KRAS G12C mutation lies within the first G box domain of the K-New protein, one of several conserved regions responsible for GTP binding and hydrolysis; disruption of this region creates a protein that is defective for GTP hydrolysis and is therefore constitutively active [PMID:5667675, PMID:1417128, PMID:62973381]. KRAS G12C has been reported as the most common KRAS mutation in non-small cell lung carcinoma (NSCLC), and has been shown to have transforming ability and lead to activation of MEK and ERK signaling; in contrast to KRAS G12D, the G12C mutation has been reported not to result in activation of Akt [PMID:12475565, PMID:65880592, PMID:72407601, PMID:29695000]. KRAS mutations have been reported in 20% of lung adenocarcinoma samples analyzed in COSMIC (October 2022). Numerous studies have reported KRAS mutations to be associated with poor survival in NSCLC patients [PMID:08111202, PMID:45338111, PMID:4047480, PMID:57161319, PMID:8872663, PMID:84104544, PMID:07016876]. THERAPEUTIC IMPLICATIONS Drug sensitivity: Sotorasib and adagrasib have been FDA-approved in patients with locally advanced or metastatic non-small cell lung carcinoma harboring a KRAS G12C mutation, as determined by an FDA-approved test, following treatment with at least one prior systemic therapy [PMID:63772614, PMID:48500086]. Drug resistance: In some cancer types, such as colorectal cancer (CRC) and non-small cell lung cancer (NSCLC), activating KRAS mutations and KRAS amplification have been associated with resistance to Egfr-targeted therapies [PMID:40064578, PMID:76346604, PMID:21340611, PMID:52834046, PMID:48234526, PMID:14204410, PMID:50489970, PMID:73353727, PMID:28763958]. FDA Approved Drugs: Sotorasib Adagrasib. 2) SHARDA c.8001_8007del (p.D1807nr*13) (VAF: 9.1%) GENE/VARIANT SUMMARY SHARDA H3405um (NM_000051) is an inactivating mutation. SHARDA encodes the serine/threonine protein kinase Ataxia telangiectasia mutated (Sharda), which is a member of the PI3K/PI4K family [PMID:35729867]. SHARDA deficiency in cells has been reported to result in progression through the cell cycle even in the presence of DNA damage, resulting in the accumulation of DNA errors and genomic instability that can lead to cancer [PMID:53481754]. The SHARDA frameshift alteration reported here is expected to truncate the Sharda protein prior to the FATC domain, which is critical to the activation of Sharda in response to DNA damage (UniProt) [PMID:21009936, PMID:80878914, PMID:64625116, PMID:86512537]. In addition, this alteration is likely to elicit nonsense-mediated decay [PMID:66157280, PMID:38134067, PMID:7176808, PMID:72570758]. Therefore, this alteration is predicted to be [...] of mutations in homologous recombination repair genes [PMID:40816408, PMID:08532615, PMID:43802460, PMID:00710055, PMID:95625233, PMID:31334557, PMID:18384702]. Preclinical studies have reported that reduced SHARDA expression or inactivating SHARDA mutations sensitized NSCLC cell line models to radiation and MEK inhibitors [PMID:97713882, PMID:76728590]. SHARDA inactivation has also been associated with increased sensitivity to the topoisomerase-2 inhibitor etoposide, the PARP inhibitor olaparib, and the Atr inhibitor berzosertib in a study of preclinical models of lung adenocarcinoma; however, no effects on cisplatin sensitivity were reported [PMID:39155551]. Drug resistance: None. FDA Approved Drugs: None. 3) CDK4 amplification GENE/VARIANT SUMMARY CDK4 amplification is an activating alteration. CDK4 encodes cyclin-dependent kinase 4 (Cdk4), which, along with functional homolog CDK6 and family member CDK2, regulates cell cycle G1 phase progression and the G1/S transition [PMID:48659156]. Cdk4 is activated by Cyclin D, and the resulting Cyclin D-Cdk4 complex phosphorylates the protein Rb, leading to the release of the turning sander operator factor E2F. This process results in the progression of the cell cycle; excessive activity in this pathway may lead to overproliferation [PMID:32118592, PMID:71568630]. Amplification of CDK4, which is located at chromosome 12q13, has been correlated with Cdk4 protein expression, and has been implicated in cell cycle progression, cell proliferation, and tumor growth [PMID:68701704, PMID:93943853, PMID:24967387, PMID:3573649, PMID:67335167, PMID:32028356]. Putative high-level amplification of CDK4 has been [...] basis for their development as anti-cancer agents [PMID:55683243, PMID:64926323, PMID:84226287]. Drug resistance: A study analyzing 65 advanced NSCLC patients, who received EGFR-tyrosine kinase inhibitors (TKIs), has reported an association of CDK4/6 amplification with de maribel EGFR-TKI resistance [PMID:11610862]. Furthermore, CDK4 alterations detected in cell free DNA have been retrospectively associated with poor response to osimertinib in a cohort of 41 NSCLC cases, while alterations in CDK4 or CDK6 detected in cell free DNA have been retrospectively associated with poor response to Egfr TKIs in a cohort of 64 NSCLC cases [PMID:03885690]. FDA Approved Drugs: None. 4) CDKN2A c.189del (p.L64fs*82) (VAF: 65%) GENE/VARIANT SUMMARY CDKN2A L64fs*82 (NM_000077) is an inactivating mutation. CDKN2A is a tumor suppressor gene that encodes the proteins j72LGB1s and p14ARF [PMID:7418347, PMID:8221691, PMID:10185466]. Deletions or mutations resulting in loss of function lead to dysregulation of the e81OGS4o/Cdk4/Cycli n/Rb and/or the Mdm2/p53 pathways and altered regulation of the cell cycle [PMID:1964407, PMID:0818165, PMID:09349392]. This frameshift alteration within CDKN2A exon 2 is expected to truncate the d78SOH4w protein within the ankyrin repeat region (UniProt). All four ankyrin repeats, which are involved in binding to eubanks targets such as Cdk4, have been suggested to be important for u86NXZ3s activity [PMID:21355328, PMID:7630370, PMID:3617424]. This alteration also alters the p14ARF transcript, potentially resulting in a chimeric transcript with the i68KXZ2k reading frame (IGV). Older studies examining similar frameshift mutations within exon 2 of CDKN2A reported that these alterations are likely inactivating; however, several studies have suggested that p14ARF exon 2 truncations or frameshift chimeric proteins retain p14ARF function, but not a87YDG9k function [PMID:47040201, PMID:00036616, PMID:94192399, PMID:66390592, PMID:44415774, PMID:88685186]. Therefore, while this alteration may result in sensitivity to Cdk4/6 inhibitors, Mdm2 inhibitors may not be relevant. CDKN2A mutations have been reported in 6% of lung adenocarcinoma samples analyzed in COSMIC (October 2022). THERAPEUTIC IMPLICATIONS Drug sensitivity: There are currently no drugs that directly target inactivating mutations or loss of CDKN2A. Because h74TMZ0x is known to inhibit Cdk4, tumors with CDKN2A alterations may be sensitive to Cdk4/6 inhibitors [PMID:8775896, PMID:4726125]. p14ARF has been reported to function as a tumor suppressor through stabilization and activation of p53, via a mechanism of Mdm2 inhibition [PMID:64652442, PMID:15283386, PMID:6438738]. However, as the alteration reported here is not expected to affect p14ARF function, Mdm2 inhibitors are not expected to be relevant. Drug resistance: Inactivating CDKN2A alterations, most commonly deletion, have been significantly associated with resistance or lack of response to immune checkpoint blockade monotherapy in NSCLC patients; however, this association was not observed in patients treated with immune checkpoint blockade plus chemotherapy [PMID:15199745, PMID:84834280]. FDA Approved Drugs: None. 5) MDM2 amplification GENE/VARIANT SUMMARY MDM2 amplification is an activating alteration. MDM2 encodes the E3 ubiquitin protein ligase, Mdm2, which mediates the ubiquitination and subsequent degradation of p53, Rb1, and other proteins [PMID:64324535, PMID:82631664, PMID:76827753]. MDM2 gene amplification, which is located at chromosome 12q15, has been correlated with elevated Mdm2 protein expression, as measured by immunohistochemistr y, and frequently with the inactivation of p53 [PMID:99408088, PMID:05295995, PMID:92618794, PMID:23293462]. MDM2 functions as an oncogene, and MDM2 amplification has been shown to play a role in cell proliferation, invasion, and metastasis [PMID:77535610, PMID:9383353, PMID:39837295, PMID:89429964]. Putative high-level amplification of MDM2 has been reported in 4-13% of lung adenocarcinoma cases ([facility], October 2022). THERAPEUTIC IMPLICATIONS Drug sensitivity: Mdm2 antagonists, which disrupt the Mdm2-p53 interaction, leading to reactivation of p53, are being studied in multiple tumor types [PMID:11736867, PMID:46226671, PMID:83230222, PMID:24454217, PMID:74228652]. Several other classes of Mdm2-p53 disrupting molecules have also been found to have activity, including novel benzodiazepine derivatives [PMID:47675797]. Preclinical studies in pancreatic, breast, and colon cancer cell lines suggest that Mdm2 inhibitors may increase sensitivity of tumors to ekuk-based therapies [PMID:59625915, PMID:22908239]. Drug resistance: Amplification of MDM2 or MDM4 has been associated with hyperprogression following treatment with anti-PD-1 or anti-PD-L1 inhibitors in one study. Hyperprogression was defined as a time to treatment less than two months, greater than 50% increase in tumor burden as compared with pre-immunotherapy, and greater than two-fold increase in progression pace [PMID:96665294]. FDA Approved Drugs: None. 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 MED12 encodes Med12, which is part of a Cdk8 kinase-containing Hardware Developer complex module that contributes to both the activation and repression of turning sander operator and has been shown to be the subunit responsible for direct physical interactions with proteins such as Sox9, beta-catenin, Gli3, and REST [PMID:29827076, PMID:92656545, PMID:68422231, PMID:84213739, PMID:67874568]. Mutation and loss of MED12 have been reported in several types of cancer; it has been suggested that inactivation of Med12 may promote cancer through the dysregulation of several signaling pathways, including TGF-beta, MEK, ERK and hormone receptors [PMID:92880014, PMID:93005992, PMID:62787218]. The MED12 nonsense alteration reported here is expected to truncate the Med12 protein prior to or within the OPA domain (UniProt) [PMID:50491204, PMID:57557153, PMID:49483608]. A preclinical study has reported that disruption of the OPA domain can be associated with changes to neurogenesis, as well as disruption of transcriptional suppression in model organisms [PMID:87840124]. In addition, C-terminal MED12 truncations have been reported as germline variants in patients with X-linked syndromic neurodevelopmental disorders [PMID:84687245]. Therefore, the alteration reported here is predicted to be inactivating. MED12 mutations have been reported in 5% of lung adenocarcinoma samples analyzed in COSMIC (October 2022). THERAPEUTIC IMPLICATIONS Drug sensitivity: There are no therapies directly targeting alterations in MED12 or Med12 expression. Preclinical studies have reported that Med12 binds to beta-catenin, providing evidence for a role for Med12 and the Hardware Developer complex in transducing Wnt pathway signaling [PMID:76891903, PMID:44392329]. The relevance of Wnt pathway inhibitors in [...] Egfr, MEK, and Braf, as well as ekuk chemotherapies [PMID:56541758, PMID:55846471]. Inactivation of MED12 was identified as a cause of crizotinib resistance in a non-small cell lung carcinoma (NSCLC) cell line. Inhibition of the TGF-beta pathway was able to restore sensitivity of NSCLC cells to crizotinib and gefitinib [PMID:79376649]. FDA Approved Drugs: None. 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 TERT encodes the telomerase reverse transcriptase protein and is activated through multiple mechanisms in several cancer types [PMID:03400052, PMID:17986544, PMID:9943118, PMID:8364883]. TERT promoter -124C>T, also known as C228T, chr5:1,295,101 C>T, or c.-124G>A, occurs prior to the transcriptional start site within the promoter of the TERT gene [PMID:44624519, PMID:46129998]. This alteration has been reported to result in increased transcriptional activity of the TERT promoter, hTERT protein expression, telomerase activity, and telomere length, as compared with wild-type TERT [PMID:57387927, PMID:77777465, PMID:47098200, PMID:95968506]. TERT mutations have been reported in 2% of lung adenocarcinoma samples analyzed in COSMIC (October 2022). THERAPEUTIC IMPLICATIONS Drug sensitivity: Therapies targeting telomeres or telomerase components have been in development, although discoveries regarding alternative roles in normal cells, as well as consequences of shortened telomeres, may limit their use [PMID:17461033, PMID:36195758, PMID:57082108, PMID:97296539, PMID:18915114]. Drug resistance: None. FDA Approved Drugs: None. 09/25/2023 6:50 PM CDT DTL Tissue (Lung, Right) 09/05/2023 10:05 AM CDT 09/11/2023 3:54 PM CDT Nilo Pickett APRN C.N.P., D.N.P. L AB GENETIC TESTING [facility] [address] [place] [address], [facility] DTL [address] [place] [address] documented in this encounter Visit Diagnoses Diagnosis Malignant Neoplasm Of Lung Left (HCC) Nodules Pulmonary Multiple Lymphadenopathy Mediastinum Abnormal Positron Emission Tomography Scan documented in this encounter
--- OUTSIDE RECORDS SUMMARY | 2023-12-09 10:14 | XMS_ITS | Encounter Summary ---
Author Organization [facility] Address [address] [place] [address] Care Team Providers Care General Helper Name Role Phone Unavailable Primary Care Provider Unavailabl e Encounter Details Date Type Department Care Team (Late st Contact Info) Description 09/04/2023 Orders Only Division of Pulmonary Medicine in [place], [place] [address] [place] [phone] Nilo Pickett APRN, C.N.P., D.N.P. [address] [place] [phone] Anemia Microcytic (Primary Dx) Social History Tobacco [...] How often do you attend faith or episcopalian serv ices? Never 10/31/2022 Do [...] heating? Not hard at all 10/31/2022 [facility] [...] CDT Appointment Department of Radiation Oncology in [place], [place] [address] [place] [phone] Elsie Dewey M.D. [address] [place] [address] documented as of this encounter Visit Diagnoses Diagnosis Anemia Microcytic- Primary documented in this encounter
--- OUTSIDE RECORDS SUMMARY | 2023-12-09 10:14 | XMS_ITS | Encounter Summary ---
Author Organization [facility] Address [address] [place] [address] Care Team Providers Care Compensation Programs Manager Name Role Phone Unavailable Primary Care Provider Unavailabl e Encounter Details Date Type Department Care Team (Late st Contact Info) Description 09/10/2023 Tumor Board Conference Department of Radiation Oncology in [place], [place] [address] [place] [phone] Elsie Dewey M.D. [address] [place] [phone] Social History Tobacco Use Types Packs/Day Years [...] often do you attend roman catholic or moravian serv ices? Never 10/31/2022 Do [...] CDT Appointment Department of Radiation Oncology in [place], [place] [address] [place] [address] Elsie Dewey M.D. [address] [place] [address] documented as of this encounter Visit Diagnoses Not on filedocumented in this encounter
--- OUTSIDE RECORDS SUMMARY | 2023-12-09 10:14 | XMS_ITS | Encounter Summary ---
Author Organization [facility] Address [address] [place] [address] Care Team Providers Care Java Consultant Name Role Phone Unavailable Primary Care Provider Unavailabl e Encounter Details Date Type Department Care Team (Late st Contact Info) Description 09/04/2023 Documentation Division of Pulmonary Medicine in [place], [place] [address] [place] [phone] Nilo Pickett APRN, C.N.P., D.N.P. [address] [place] [phone] Social History Tobacco Use Types Packs/Day Years [...] declined 10/31/2022 How often do you attend orthodoxy or yazdanism serv ices? Never 10/31/2022 Do you belong to any clubs o r organizations such as orthodoxy groups, unions, fraternal or athletic groups, or [...] and heating? Not hard at all 10/31/2022 [facility] - [facility] [...] CDT Appointment Department of Radiation Oncology in [place], [place] [address] [place] [address] Elsie Dewey M.D. [address] [place] [address] documented as of this encounter Visit Diagnoses Not on filedocumented in this encounter
[2023-12-09 10:34] LABS: Estimated Glomerular Filt Rate 59 ml/min
--- NOTE | 2023-12-09 11:00 | CRLHL7_ITS ---
For Patients: As a result of the Century Cures Act, medical imaging exams and procedure reports are released immediately into your electronic medical record. You may view this report before your referring provider. If you have questions, please contact your health care provider. INDICATION: Follow-up lung cancer TECHNIQUE: CT chest with 75 mL Isovue 370 IV contrast. COMPARISON: 06/21/2023, 10/02/[address]s FINDINGS: Lungs and pleura: Diffuse emphysema. Spiculated 1.3 cm nodule in the right upper lobe on image 29 of series 3 has decreased in size from the most recent prior exam where it measured 1.9 cm. The nodule is less solid as well. 1.8 x 1.6 cm ground-glass and cystic nodule right lower lobe image 66, unchanged. 2.3 cm part solid nodule on image 73 with 0.6 cm solid component on image 74 is overall unchanged in size but also appears less solid. 2.4 x 1.2 cm left lower lobe nodule image 60 is unchanged. 8 x 3.5 mm solid nodule in the left upper lobe image 12 is unchanged. Heart and vasculature: Heart size is normal. Thoracic aorta and pulmonary artery are normal in caliber.Aberrant right subclavian artery, anatomic variant. Right-sided Port-A-Cath. Lymph nodes/mediastinum: No mediastinal, hilar, or axillary adenopathy. Thyroid gland is normal. Chest wall: No masses. Upper abdomen: Pancreatic parenchymal calcifications suggesting chronic pancreatitis. Bones: Diffuse demineralization. IMPRESSION: 1. Decrease in size of a right upper lobe pulmonary nodule, which now measures 1.3 versus 1.9 cm previously and is less solid. 2. Part solid right lower lobe pulmonary nodule is overall unchanged in size but less solid. Solid portion measures 0.6 cm. 3. Additional bilateral pulmonary nodules are stable. Please note that all CT scans at this facility use dose modulation, iterative reconstruction, and/or weight-based dosing when appropriate to reduce radiation dose to as low as reasonably achievable. Dictated by Poli Corona MD @ 12/10/2023 11:36:45 AM (Electronically Signed)
== END 2023-12-09 10:08 | disposition home or self-care (01) ==
PROVIDERS: PCP Internal Medicine; Visit Provider Internal Medicine Hematology & Oncology
DX: C34.90 Malignant neoplasm of unspecified part of unspecified bronchus or lung (principal)
CPT/HCPCS: 36415; 71260; 82565; Q9967

== ENCOUNTER 2024-03-05 13:15 | Outpatient (RCR) | payer MEDICARE, BC, SELFPAY ==
--- NOTE | 2023-09-12 12:03 | URNOTE ---
Prior authorization is not required for TAxol (J9267), Carboplatin (J9045), and Aloxi ([id number]). Pt has medicare and [facility]. Services are based on medical necessity and follow medicare guidelines
[2023-09-24 08:43] LABS: Basophils Absolute Auto 0.02 K/uL (0.00-0.30); Basophils Percent Auto 0.3 % (0.0-3.0); Eosinophils Absolute Auto 0.04 K/uL (0.00-0.50); Eosinophils Percent Auto 0.6 % (0.0-7.0); Hematocrit 27.4 % (33.0-51.0); Hemoglobin* 8.3 gm/dL (12.0-16.0); Lymphocytes Absolute Auto 2.05 K/uL (0.90-2.90); Lymphocytes Percent Auto 29.3 % (20-44); Mean Corpuscular HGB Conc 30 gm/dL (32-36); Mean Corpuscular Hemoglobin 23 pg (26-34); Mean Corpuscular Volume 75 fL (80-100); Monocytes Percent Auto 8.4 % (0.0-11.0); Neutrophils Absolute Auto 4.29 K/uL (1.7-7.0); Neutrophils Percent Auto 61.4 % (42.0-72.0); Platelet Count* 260 K/uL (140-440); RDW Coefficient of Variation % 17.9 % (11.5-15.5); Red Blood Count 3.65 m/uL (4.00-5.20); White Blood Count* 6.99 K/uL (4.50-11.00)
[2023-09-24 08:45] LABS: Slide Review Reflex No
[2023-09-24 08:57] LABS: Albumin* 3.9 g/dL (3.3-5.0); Chloride* 103 mmol/L (96-114)
[2023-09-24 08:58] LABS: Potassium* 3.9 mmol/L (3.6-5.1); Sodium* 137 mmol/L (135-149)
[2023-09-24 09:00] LABS: Alkaline Phosphatase* 56 U/L (40-150); Anion Gap 5 mEq/L (7-15); Aspartate Amino Transferase* 26 U/L (12-35); Bilirubin Total* 0.4 mg/dL (0.1-1.5); Blood Urea Nitrogen* 30 mg/dL (7-30); Carbon Dioxide* 29 mmol/L (20-32); Est. Creatinine Clearance* 37.24; Estimated Glomerular Filt Rate 59 ml/min; Total Protein* 6.9 g/dL (6.0-8.3)
[2023-09-24 09:01] LABS: Alanine Aminotransferase* 14 U/L (4-35); Calcium* 9.3 mg/dL (8.4-10.6); Glucose* 96 mg/dL (60-115)
[2023-09-24 10:11] VITALS: BP 164/91; PULSE 67; RESP 14; TEMP 36.2; O2SAT 92
[2023-09-24] MEDS: FAMOTIDINE 20 MG, diphenhydrAMINE 50 MG in 0.9 % SODIUM CHLORIDE 100 ml 100 ML 309 MG IVPB (10:38)
[2023-09-24] MEDS: 0.9 % SODIUM CHLORIDE 250 ml IV (10:38)
[2023-09-24] MEDS: PALONOSETRON 0.25 MG/5 ML inj IV (10:39)
[2023-09-24] MEDS: dexAMETHasone 20 MG in 0.9 % SODIUM CHLORIDE 100 ml 100 ML 408 MG IVPB (11:02)
[2023-09-24] MEDS: [UNRECOGNIZED DRUG - OTHER] IV (11:35)
[2023-09-24] MEDS: PACLITAXEL IV (11:35)
[2023-09-24] MEDS: MICRON FILTER SET IV (11:35)
[2023-09-24] MEDS: TUBING PRIMARY IV (11:35)
[2023-09-24] MEDS: IN LINE IV (11:35)
[2023-09-24] MEDS: SODIUM CHLORIDE 0.9 % (FLUSH) 10 ML SYRINGE IVF (13:26)
[2023-09-24] MEDS: HEPARIN 500 UNIT/5 ML SYRINGE IVF (13:27)
--- NOTE | 2023-09-25 08:44 | ONC.NURNOTE ---
Called patient, and talked with spouse b/c she was still sleeping. He notes that she was feeling very well yesterday with steroids. They will use the plan put in place for nausea control and will watch bowels. They have our contact information if it is needed.
[2023-09-30 14:55] LABS: Basophils Absolute Auto 0.04 K/uL (0.00-0.30); Basophils Percent Auto 0.9 % (0.0-3.0); Eosinophils Absolute Auto 0.12 K/uL (0.00-0.50); Eosinophils Percent Auto 2.6 % (0.0-7.0); Hematocrit 27.8 % (33.0-51.0); Hemoglobin* 8.4 gm/dL (12.0-16.0); Immature Granulocytes Abs Auto 0.04 K/uL (0.00-0.30); Immature Granulocytes Pct Auto 0.9 %; Lymphocytes Absolute Auto 1.13 K/uL (0.90-2.90); Lymphocytes Percent Auto 24.4 % (20-44); Mean Corpuscular HGB Conc 30 gm/dL (32-36); Mean Corpuscular Hemoglobin 23 pg (26-34); Mean Corpuscular Volume 76 fL (80-100); Monocytes Percent Auto 7.1 % (0.0-11.0); Neutrophils Absolute Auto 2.97 K/uL (1.7-7.0); Neutrophils Percent Auto 64.1 % (42.0-72.0); Platelet Count* 268 K/uL (140-440); RDW Coefficient of Variation % 17.9 % (11.5-15.5); Red Blood Count 3.68 m/uL (4.00-5.20); White Blood Count* 4.63 K/uL (4.50-11.00)
[2023-09-30 15:02] LABS: Albumin* 4.1 g/dL (3.3-5.0); Chloride* 104 mmol/L (96-114); Potassium* 4.3 mmol/L (3.6-5.1); Sodium* 134 mmol/L (135-149)
[2023-09-30 15:04] LABS: Bilirubin Total* 0.4 mg/dL (0.1-1.5); Est. Creatinine Clearance* 37.24; Estimated Glomerular Filt Rate 59 ml/min
[2023-09-30] MEDS: SODIUM CHLORIDE 0.9 % (FLUSH) 10 ML SYRINGE IVF (15:04)
[2023-09-30] MEDS: HEPARIN 500 UNIT/5 ML SYRINGE IVF (15:04)
[2023-09-30 15:05] LABS: Alanine Aminotransferase* 13 U/L (4-35); Alkaline Phosphatase* 60 U/L (40-150); Anion Gap 1 mEq/L (7-15); Aspartate Amino Transferase* 27 U/L (12-35); Blood Urea Nitrogen* 26 mg/dL (7-30); Calcium* 8.8 mg/dL (8.4-10.6); Carbon Dioxide* 29 mmol/L (20-32); Glucose* 88 mg/dL (60-115); Total Protein* 7.1 g/dL (6.0-8.3)
[2023-09-30 15:21] LABS: Slide Review Reflex No
[2023-09-30 16:03] VITALS: O2SAT 88
--- NOTE | 2023-09-30 16:08 | ONC.NURNOTE ---
Pt here to see Pilar Smith PA-C; see Pilar's note. Had pt up ambulating in [place] with pulse oximeter on. 88-89% RA with ambulation; 94% at rest. Pt repeats that she expects to be SOB with ephysema. Tornado Chaser reinforced Pilar's recommendation to be see in ED for squeezing chest pressure and SOB. Pt declined, saying she'll return to [facility] tomorrow. Pt's s/o says if symptoms worsen he'll [convince] her to be see in ED. Sent with supplies for stool sample; pt to bring in for Hemoccult testing.
--- NOTE | 2023-10-03 15:02 | ONC.NURNOTE ---
Clarification of coumadin dosing stopped on 09/17 X 5 days port placed on 09/22 and patient was told she can restart the coumadin that pm current dose is 2 mg MWF and 4 mg TTSS patient has 2 mg tabs at home
[2023-10-07 08:53] LABS: Basophils Percent Auto 0.5 % (0.0-3.0); Eosinophils Percent Auto 2.1 % (0.0-7.0); Hematocrit 26.8 % (33.0-51.0); Hemoglobin* 8.1 gm/dL (12.0-16.0); Lymphocytes Percent Auto 22.2 % (20-44); Mean Corpuscular HGB Conc 30 gm/dL (32-36); Mean Corpuscular Hemoglobin 23 pg (26-34); Mean Corpuscular Volume 76 fL (80-100); Monocytes Percent Auto 7.7 % (0.0-11.0); Neutrophils Percent Auto 67.5 % (42.0-72.0); Platelet Count* 207 K/uL (140-440); Red Blood Count 3.54 m/uL (4.00-5.20); White Blood Count* 3.78 K/uL (4.50-11.00)
[2023-10-07 08:54] LABS: Slide Review Reflex No
[2023-10-07 09:11] LABS: Chloride* 108 mmol/L (96-114); Sodium* 137 mmol/L (135-149)
[2023-10-07 09:12] LABS: Potassium* 3.8 mmol/L (3.6-5.1)
[2023-10-07 09:14] LABS: Alanine Aminotransferase* 14 U/L (4-35); Alkaline Phosphatase* 57 U/L (40-150); Anion Gap 1 mEq/L (7-15); Aspartate Amino Transferase* 28 U/L (12-35); Bilirubin Total* 0.5 mg/dL (0.1-1.5); Blood Urea Nitrogen* 29 mg/dL (7-30); Carbon Dioxide* 28 mmol/L (20-32); Creatinine* 0.9 mg/dL (0.5-1.5); Est. Creatinine Clearance* 37.24; Estimated Glomerular Filt Rate 67 ml/min; Glucose* 93 mg/dL (60-115); Total Protein* 6.9 g/dL (6.0-8.3)
[2023-10-07 09:15] LABS: Calcium* 8.7 mg/dL (8.4-10.6)
[2023-10-08 10:20] VITALS: BP 157/82; PULSE 83; RESP 16; TEMP 36.3; O2SAT 95
[2023-10-08] MEDS: 0.9 % SODIUM CHLORIDE 250 ml IV (11:06)
[2023-10-08] MEDS: SODIUM CHLORIDE 0.9 % (FLUSH) 10 ML SYRINGE IVF (11:06)
[2023-10-08] MEDS: dexAMETHasone 20 MG in 0.9 % SODIUM CHLORIDE 100 ml 100 ML 420 MG IVPB (11:06)
[2023-10-08] MEDS: PALONOSETRON 0.25 MG/5 ML inj IV (11:07)
[2023-10-08] MEDS: FAMOTIDINE 20 MG, diphenhydrAMINE 50 MG in 0.9 % SODIUM CHLORIDE 100 ml 100 ML 420 MG IVPB (11:25)
[2023-10-08] MEDS: [UNRECOGNIZED DRUG - OTHER] IV (11:48)
[2023-10-08] MEDS: TUBING PRIMARY IV (11:48)
[2023-10-08] MEDS: MICRON FILTER SET IV (11:48)
[2023-10-08] MEDS: PACLITAXEL IV (11:48)
[2023-10-08] MEDS: IN LINE IV (11:48)
[2023-10-10 14:26] LABS: Basophils Absolute Auto 0.03 K/uL (0.00-0.30); Basophils Percent Auto 0.6 % (0.0-3.0); Eosinophils Absolute Auto 0.05 K/uL (0.00-0.50); Lymphocytes Percent Auto 19.7 % (20-44); Mean Corpuscular HGB Conc 30 gm/dL (32-36); Mean Corpuscular Hemoglobin 23 pg (26-34); Mean Corpuscular Volume 78 fL (80-100); Monocytes Percent Auto 5.5 % (0.0-11.0); Neutrophils Percent Auto 73.2 % (42.0-72.0); Platelet Count* 209 K/uL (140-440); RDW Coefficient of Variation % 19.8 % (11.5-15.5); Red Blood Count 3.09 m/uL (4.00-5.20); White Blood Count* 4.93 K/uL (4.50-11.00)
[2023-10-10 14:34] LABS: Hemoglobin* 7.2 gm/dL (12.0-16.0); Slide Review Reflex No
[2023-10-10 15:04] LABS: Albumin* 3.9 g/dL (3.3-5.0); Chloride* 103 mmol/L (96-114)
[2023-10-10 15:05] LABS: Potassium* 4.2 mmol/L (3.6-5.1); Sodium* 137 mmol/L (135-149)
[2023-10-10 15:07] LABS: Anion Gap 4 mEq/L (7-15); Aspartate Amino Transferase* 33 U/L (12-35); Bilirubin Total* 0.4 mg/dL (0.1-1.5); Blood Urea Nitrogen* 35 mg/dL (7-30); Carbon Dioxide* 30 mmol/L (20-32); Creatinine* 0.9 mg/dL (0.5-1.5); Est. Creatinine Clearance* 37.24; Estimated Glomerular Filt Rate 67 ml/min; Total Protein* 6.6 g/dL (6.0-8.3)
[2023-10-10 15:08] LABS: Alanine Aminotransferase* 17 U/L (4-35); Alkaline Phosphatase* 57 U/L (40-150); Calcium* 8.7 mg/dL (8.4-10.6); Glucose* 90 mg/dL (60-115)
[2023-10-11] MEDS: 0.9 % SODIUM CHLORIDE 250 ml IV (10:00)
[2023-10-11 10:01] VITALS: BP 148/84; PULSE 80; RESP 16; TEMP 36.4; O2SAT 93
[2023-10-11 10:17] VITALS: BP 148/84; PULSE 80; RESP 16; TEMP 36.4; O2SAT 91
[2023-10-11 10:36] VITALS: BP 154/85; PULSE 70; RESP 16; TEMP 36.9; O2SAT 93
[2023-10-11] MEDS: SODIUM CHLORIDE 0.9 % (FLUSH) 10 ML SYRINGE IVF (10:48)
[2023-10-11 11:28] VITALS: BP 150/84; PULSE 70; RESP 20; TEMP 37.1; O2SAT 94
[2023-10-11 12:09] VITALS: BP 168/92; PULSE 70; RESP 18; TEMP 37.1; O2SAT 90
[2023-10-11 12:36] VITALS: BP 153/91; PULSE 72; RESP 20; TEMP 36.7; O2SAT 94
[2023-10-14 14:32] LABS: Basophils Percent Auto 0.7 % (0.0-3.0); Eosinophils Percent Auto 1.6 % (0.0-7.0); Hematocrit 26.7 % (33.0-51.0); Hemoglobin* 8.2 gm/dL (12.0-16.0); Immature Granulocytes Pct Auto 0.5 %; Lymphocytes Percent Auto 19.1 % (20-44); Mean Corpuscular HGB Conc 31 gm/dL (32-36); Mean Corpuscular Hemoglobin 25 pg (26-34); Mean Corpuscular Volume 80 fL (80-100); Monocytes Percent Auto 8.5 % (0.0-11.0); Neutrophils Percent Auto 69.6 % (42.0-72.0); Platelet Count* 179 K/uL (140-440); RDW Coefficient of Variation % 20.4 % (11.5-15.5); Red Blood Count 3.33 m/uL (4.00-5.20); White Blood Count* 4.34 K/uL (4.50-11.00)
[2023-10-14 14:45] LABS: Albumin* 3.9 g/dL (3.3-5.0); Chloride* 102 mmol/L (96-114); Potassium* 4.1 mmol/L (3.6-5.1); Sodium* 135 mmol/L (135-149)
[2023-10-14 14:47] LABS: Bilirubin Total* 0.3 mg/dL (0.1-1.5); Creatinine* 0.9 mg/dL (0.5-1.5); Est. Creatinine Clearance* 37.24; Estimated Glomerular Filt Rate 67 ml/min
[2023-10-14] MEDS: HEPARIN 500 UNIT/5 ML SYRINGE IVF (14:47)
[2023-10-14] MEDS: SODIUM CHLORIDE 0.9 % (FLUSH) 10 ML SYRINGE IVF (14:47)
[2023-10-14 14:48] LABS: Alanine Aminotransferase* 15 U/L (4-35); Alkaline Phosphatase* 56 U/L (40-150); Anion Gap 4 mEq/L (7-15); Aspartate Amino Transferase* 29 U/L (12-35); Blood Urea Nitrogen* 32 mg/dL (7-30); Calcium* 8.8 mg/dL (8.4-10.6); Carbon Dioxide* 29 mmol/L (20-32); Glucose* 88 mg/dL (60-115); Total Protein* 6.7 g/dL (6.0-8.3)
[2023-10-14 15:22] LABS: Slide Review Reflex Yes
[2023-10-14 15:35] LABS: Slide Review Acceptable Review (Acceptable)
[2023-10-15] MEDS: SODIUM CHLORIDE 0.9 % (FLUSH) 10 ML SYRINGE IVF ×2 (10:10→12:41)
[2023-10-15] MEDS: 0.9 % SODIUM CHLORIDE 250 ml IV (10:11)
[2023-10-15] MEDS: PALONOSETRON 0.25 MG/5 ML inj IV (10:11)
[2023-10-15] MEDS: FAMOTIDINE 20 MG, diphenhydrAMINE 50 MG in 0.9 % SODIUM CHLORIDE 100 ml 100 ML 309 MG IVPB (10:20)
[2023-10-15] MEDS: dexAMETHasone 20 MG in 0.9 % SODIUM CHLORIDE 100 ml 100 ML 408 MG IVPB (10:44)
[2023-10-15] MEDS: IN LINE IV (11:02)
[2023-10-15] MEDS: TUBING PRIMARY IV (11:02)
[2023-10-15] MEDS: [UNRECOGNIZED DRUG - OTHER] IV (11:02)
[2023-10-15] MEDS: MICRON FILTER SET IV (11:02)
[2023-10-15] MEDS: PACLITAXEL IV (11:02)
[2023-10-15] MEDS: HEPARIN 500 UNIT/5 ML SYRINGE IVF (12:41)
[2023-10-17 12:54] LABS: Basophils Absolute Auto 0.02 K/uL (0.00-0.30); Basophils Percent Auto 0.4 % (0.0-3.0); Eosinophils Absolute Auto 0.04 K/uL (0.00-0.50); Eosinophils Percent Auto 0.8 % (0.0-7.0); Hematocrit 26.9 % (33.0-51.0); Hemoglobin* 8.2 gm/dL (12.0-16.0); Immature Granulocytes Abs Auto 0.01 K/uL (0.00-0.30); Immature Granulocytes Pct Auto 0.2 %; Lymphocytes Percent Auto 11.8 % (20-44); Mean Corpuscular HGB Conc 31 gm/dL (32-36); Mean Corpuscular Hemoglobin 25 pg (26-34); Mean Corpuscular Volume 82 fL (80-100); Monocytes Percent Auto 4.6 % (0.0-11.0); Neutrophils Percent Auto 82.2 % (42.0-72.0); Platelet Count* 157 K/uL (140-440); RDW Coefficient of Variation % 22.3 % (11.5-15.5); White Blood Count* 4.99 K/uL (4.50-11.00)
[2023-10-17 13:00] LABS: Slide Review Reflex No
[2023-10-21 14:10] LABS: Basophils Percent Auto 0.3 % (0.0-3.0); Eosinophils Percent Auto 1.1 % (0.0-7.0); Hematocrit 26.1 % (33.0-51.0); Immature Granulocytes Pct Auto 0.8 %; Lymphocytes Percent Auto 16.4 % (20-44); Mean Corpuscular HGB Conc 30 gm/dL (32-36); Mean Corpuscular Hemoglobin 25 pg (26-34); Mean Corpuscular Volume 83 fL (80-100); Monocytes Percent Auto 6.3 % (0.0-11.0); Neutrophils Percent Auto 75.1 % (42.0-72.0); Platelet Count* 165 K/uL (140-440); RDW Coefficient of Variation % 23.1 % (11.5-15.5); Red Blood Count 3.14 m/uL (4.00-5.20); White Blood Count* 3.79 K/uL (4.50-11.00)
[2023-10-21 14:12] LABS: Hemoglobin* 7.9 gm/dL (12.0-16.0)
[2023-10-21 14:32] LABS: Albumin* 3.8 g/dL (3.3-5.0); Chloride* 105 mmol/L (96-114); Potassium* 4.2 mmol/L (3.6-5.1); Sodium* 135 mmol/L (135-149)
[2023-10-21 14:34] LABS: Creatinine* 0.9 mg/dL (0.5-1.5); Est. Creatinine Clearance* 37.24; Estimated Glomerular Filt Rate 67 ml/min
[2023-10-21 14:35] LABS: Alanine Aminotransferase* 15 U/L (4-35); Alkaline Phosphatase* 52 U/L (40-150); Anion Gap 1 mEq/L (7-15); Aspartate Amino Transferase* 28 U/L (12-35); Bilirubin Total* 0.5 mg/dL (0.1-1.5); Blood Urea Nitrogen* 30 mg/dL (7-30); Calcium* 8.6 mg/dL (8.4-10.6); Carbon Dioxide* 29 mmol/L (20-32); Glucose* 89 mg/dL (60-115); Total Protein* 6.4 g/dL (6.0-8.3)
[2023-10-22 10:09] VITALS: BP 128/72; PULSE 68; RESP 16; TEMP 36.1; O2SAT 95
[2023-10-22] MEDS: dexAMETHasone 20 MG in 0.9 % SODIUM CHLORIDE 100 ml 100 ML 408 MG IVPB (10:53)
[2023-10-22] MEDS: 0.9 % SODIUM CHLORIDE 250 ml IV (10:54)
[2023-10-22] MEDS: SODIUM CHLORIDE 0.9 % (FLUSH) 10 ML SYRINGE IVF ×2 (10:54→13:38)
[2023-10-22] MEDS: PALONOSETRON 0.25 MG/5 ML inj IV (10:54)
[2023-10-22] MEDS: FAMOTIDINE 20 MG, diphenhydrAMINE 50 MG in 0.9 % SODIUM CHLORIDE 100 ml 100 ML 309 MG IVPB (11:20)
[2023-10-22 11:38] LABS: Slide Review Reflex No
[2023-10-22] MEDS: IN LINE IV (11:47)
[2023-10-22] MEDS: PACLITAXEL IV (11:47)
[2023-10-22] MEDS: [UNRECOGNIZED DRUG - OTHER] IV (11:47)
[2023-10-22] MEDS: MICRON FILTER SET IV (11:47)
[2023-10-22] MEDS: TUBING PRIMARY IV (11:47)
--- NOTE | 2023-10-22 11:58 | ONC.NURNOTE ---
blood drawn with lab witness for tx 1 Unit [facility] tomorrow.
[2023-10-22] MEDS: HEPARIN 500 UNIT/5 ML SYRINGE IVF (13:38)
[2023-10-23 10:29] VITALS: BP 139/72; PULSE 76; RESP 16; TEMP 36.8; O2SAT 97
[2023-10-23 10:46] VITALS: BP 122/80; PULSE 75; RESP 16; TEMP 36.6; O2SAT 94
[2023-10-23 11:31] VITALS: BP 121/77; PULSE 75; RESP 16; TEMP 36.4; O2SAT 94
[2023-10-23 12:54] VITALS: BP 159/87; PULSE 72; RESP 16; TEMP 36.7; O2SAT 96
[2023-10-23 13:25] VITALS: BP 153/70; PULSE 74; RESP 16; TEMP 36.8; O2SAT 95
[2023-10-23] MEDS: SODIUM CHLORIDE 0.9 % (FLUSH) 10 ML SYRINGE IVF (13:26)
[2023-10-23] MEDS: HEPARIN 500 UNIT/5 ML SYRINGE IVF (13:26)
[2023-10-28 13:51] LABS: Basophils Percent Auto 0.4 % (0.0-3.0); Eosinophils Percent Auto 1.5 % (0.0-7.0); Hematocrit 28.3 % (33.0-51.0); Hemoglobin* 8.8 gm/dL (12.0-16.0); Lymphocytes Percent Auto 23.2 % (20-44); Mean Corpuscular HGB Conc 31 gm/dL (32-36); Mean Corpuscular Hemoglobin 27 pg (26-34); Mean Corpuscular Volume 87 fL (80-100); Monocytes Percent Auto 8.2 % (0.0-11.0); Neutrophils Percent Auto 66.7 % (42.0-72.0); Platelet Count* 129 K/uL (140-440); Red Blood Count 3.26 m/uL (4.00-5.20); White Blood Count* 2.67 K/uL (4.50-11.00)
[2023-10-28 13:53] LABS: Slide Review Reflex No
[2023-10-28 14:24] LABS: Albumin* 3.9 g/dL (3.3-5.0)
[2023-10-28 14:25] LABS: Chloride* 105 mmol/L (96-114); Potassium* 4.1 mmol/L (3.6-5.1); Sodium* 135 mmol/L (135-149)
[2023-10-28 14:27] LABS: Bilirubin Total* 0.5 mg/dL (0.1-1.5); Creatinine* 0.8 mg/dL (0.5-1.5); Est. Creatinine Clearance* 37.24; Estimated Glomerular Filt Rate 77 ml/min
[2023-10-28 14:28] LABS: Alanine Aminotransferase* 19 U/L (4-35); Alkaline Phosphatase* 54 U/L (40-150); Anion Gap 2 mEq/L (7-15); Aspartate Amino Transferase* 30 U/L (12-35); Blood Urea Nitrogen* 36 mg/dL (7-30); Calcium* 8.6 mg/dL (8.4-10.6); Carbon Dioxide* 28 mmol/L (20-32); Glucose* 85 mg/dL (60-115); Total Protein* 6.5 g/dL (6.0-8.3)
[2023-10-29] MEDS: SODIUM CHLORIDE 0.9 % (FLUSH) 10 ML SYRINGE IVF ×2 (10:50→13:38)
[2023-10-29] MEDS: 0.9 % SODIUM CHLORIDE 250 ml IV (10:50)
[2023-10-29] MEDS: dexAMETHasone 20 MG in 0.9 % SODIUM CHLORIDE 100 ml 100 ML 420 MG IVPB (11:02)
[2023-10-29] MEDS: PALONOSETRON 0.25 MG/5 ML inj IV (11:02)
[2023-10-29] MEDS: FAMOTIDINE 20 MG, diphenhydrAMINE 50 MG in 0.9 % SODIUM CHLORIDE 100 ml 100 ML 420 MG IVPB (11:24)
[2023-10-29] MEDS: TUBING PRIMARY IV (11:45)
[2023-10-29] MEDS: PACLITAXEL IV (11:45)
[2023-10-29] MEDS: MICRON FILTER SET IV (11:45)
[2023-10-29] MEDS: IN LINE IV (11:45)
[2023-10-29] MEDS: [UNRECOGNIZED DRUG - OTHER] IV (11:45)
[2023-10-29] MEDS: HEPARIN 500 UNIT/5 ML SYRINGE IVF (13:38)
[2023-11-04 13:42] LABS: Basophils Percent Auto 0.4 % (0.0-3.0); Eosinophils Percent Auto 0.8 % (0.0-7.0); Hematocrit 29.3 % (33.0-51.0); Hemoglobin* 9.3 gm/dL (12.0-16.0); Immature Granulocytes Pct Auto 0.4 %; Lymphocytes Percent Auto 19.1 % (20-44); Mean Corpuscular HGB Conc 32 gm/dL (32-36); Mean Corpuscular Hemoglobin 28 pg (26-34); Mean Corpuscular Volume 88 fL (80-100); Monocytes Percent Auto 7.6 % (0.0-11.0); Neutrophils Percent Auto 71.7 % (42.0-72.0); Platelet Count* 133 K/uL (140-440); RDW Coefficient of Variation % 24.3 % (11.5-15.5); Red Blood Count 3.32 m/uL (4.00-5.20); White Blood Count* 2.62 K/uL (4.50-11.00)
[2023-11-04 13:45] LABS: Slide Review Reflex No
[2023-11-04 13:59] LABS: Albumin* 4.3 g/dL (3.3-5.0); Chloride* 104 mmol/L (96-114); Potassium* 3.9 mmol/L (3.6-5.1); Sodium* 138 mmol/L (135-149)
[2023-11-04 14:01] LABS: Anion Gap 5 mEq/L (7-15); Bilirubin Total* 0.6 mg/dL (0.1-1.5); Carbon Dioxide* 29 mmol/L (20-32); Creatinine* 1.1 mg/dL (0.5-1.5); Est. Creatinine Clearance* 33.86; Estimated Glomerular Filt Rate 53 ml/min
[2023-11-04 14:02] LABS: Alanine Aminotransferase* 18 U/L (4-35); Alkaline Phosphatase* 57 U/L (40-150); Aspartate Amino Transferase* 30 U/L (12-35); Blood Urea Nitrogen* 32 mg/dL (7-30); Glucose* 94 mg/dL (60-115); Total Protein* 7.1 g/dL (6.0-8.3)
[2023-11-05 10:38] VITALS: BP 116/76; PULSE 91; RESP 16; TEMP 36.1; O2SAT 95
[2023-11-05] MEDS: 0.9 % SODIUM CHLORIDE 250 ml IV (11:00)
[2023-11-05] MEDS: PALONOSETRON 0.25 MG/5 ML inj IV (11:00)
[2023-11-05] MEDS: SODIUM CHLORIDE 0.9 % (FLUSH) 10 ML SYRINGE IVF ×2 (11:00→13:33)
[2023-11-05] MEDS: dexAMETHasone 20 MG in 0.9 % SODIUM CHLORIDE 100 ml 100 ML 420 MG IVPB (11:04)
[2023-11-05] MEDS: FAMOTIDINE 20 MG, diphenhydrAMINE 50 MG in 0.9 % SODIUM CHLORIDE 100 ml 100 ML 420 MG IVPB (11:21)
[2023-11-05] MEDS: TUBING PRIMARY IV (11:44)
[2023-11-05] MEDS: PACLITAXEL IV (11:44)
[2023-11-05] MEDS: IN LINE IV (11:44)
[2023-11-05] MEDS: MICRON FILTER SET IV (11:44)
[2023-11-05] MEDS: [UNRECOGNIZED DRUG - OTHER] IV (11:44)
[2023-11-05] MEDS: HEPARIN 500 UNIT/5 ML SYRINGE IVF (13:33)
[2023-12-12 12:04] LABS: Basophils Absolute Auto 0.02 K/uL (0.00-0.30); Basophils Percent Auto 0.4 % (0.0-3.0); Hematocrit 26.7 % (33.0-51.0); Hemoglobin* 8.2 gm/dL (12.0-16.0); Immature Granulocytes Abs Auto 0.01 K/uL (0.00-0.30); Immature Granulocytes Pct Auto 0.2 %; Lymphocytes Percent Auto 17.5 % (20-44); Mean Corpuscular HGB Conc 31 gm/dL (32-36); Mean Corpuscular Hemoglobin 30 pg (26-34); Mean Corpuscular Volume 99 fL (80-100); Monocytes Percent Auto 10.3 % (0.0-11.0); Neutrophils Absolute Auto 3.41 K/uL (1.7-7.0); Neutrophils Percent Auto 67.6 % (42.0-72.0); Platelet Count* 299 K/uL (140-440); White Blood Count* 5.04 K/uL (4.50-11.00)
[2023-12-12 12:07] LABS: Slide Review Reflex No
[2023-12-12 12:27] LABS: Albumin* 4.1 g/dL (3.3-5.0); Chloride* 105 mmol/L (96-114); Potassium* 4.2 mmol/L (3.6-5.1); Sodium* 137 mmol/L (135-149)
[2023-12-12 12:29] LABS: Creatinine* 0.9 mg/dL (0.5-1.5); Est. Creatinine Clearance* 37.24; Estimated Glomerular Filt Rate 67 ml/min
[2023-12-12 12:30] LABS: Alanine Aminotransferase* 12 U/L (4-35); Alkaline Phosphatase* 68 U/L (40-150); Anion Gap 6 mEq/L (7-15); Aspartate Amino Transferase* 31 U/L (12-35); Bilirubin Total* 0.4 mg/dL (0.1-1.5); Blood Urea Nitrogen* 32 mg/dL (7-30); Calcium* 8.9 mg/dL (8.4-10.6); Carbon Dioxide* 26 mmol/L (20-32); Glucose* 99 mg/dL (60-115); Total Protein* 6.9 g/dL (6.0-8.3)
[2023-12-12 16:35] LABS: Free T4 Free Thyroxine* 1.19 ng/dL (0.70-1.85)
--- NOTE | 2023-12-13 13:47 | URNOTE ---
Request received for authorization for?Durvalumab (Imfincate) ([id number]). Prior authorization is not required as services are based on medical necessity and follow Medicare guidelines.
[2023-12-18 10:30] VITALS: BP 131/79; PULSE 96; RESP 12; TEMP 37.2; O2SAT 92
[2023-12-18] MEDS: ACETAMINOPHEN 325 MG TABLET 650 MG PO (10:55)
[2023-12-18] MEDS: diphenhydrAMINE 25 MG CAPSULE 50 MG PO (10:55)
[2023-12-18] MEDS: 0.9 % SODIUM CHLORIDE 250 ml IV (11:37)
[2023-12-18] MEDS: SODIUM CHLORIDE 0.9 % (FLUSH) 10 ML SYRINGE IVF ×2 (11:37→12:48)
[2023-12-18] MEDS: HEPARIN 500 UNIT/5 ML SYRINGE IVF (12:48)
[2024-01-02 09:29] LABS: Basophils Absolute Auto 0.03 K/uL (0.00-0.30); Basophils Percent Auto 0.5 % (0.0-3.0); Eosinophils Absolute Auto 0.24 K/uL (0.00-0.50); Eosinophils Percent Auto 4.2 % (0.0-7.0); Hemoglobin* 9.5 gm/dL (12.0-16.0); Immature Granulocytes Abs Auto 0.02 K/uL (0.00-0.30); Immature Granulocytes Pct Auto 0.3 %; Lymphocytes Percent Auto 15.9 % (20-44); Mean Corpuscular HGB Conc 31 gm/dL (32-36); Mean Corpuscular Hemoglobin 30 pg (26-34); Mean Corpuscular Volume 99 fL (80-100); Monocytes Percent Auto 10.2 % (0.0-11.0); Neutrophils Absolute Auto 3.97 K/uL (1.7-7.0); Neutrophils Percent Auto 68.9 % (42.0-72.0); Platelet Count* 209 K/uL (140-440); RDW Coefficient of Variation % 14.9 % (11.5-15.5); Red Blood Count 3.14 m/uL (4.00-5.20); White Blood Count* 5.77 K/uL (4.50-11.00)
[2024-01-02 09:33] LABS: Slide Review Reflex No
[2024-01-02 10:46] LABS: Albumin* 4.1 g/dL (3.3-5.0); Chloride* 104 mmol/L (96-114); Sodium* 137 mmol/L (135-149)
[2024-01-02 10:49] LABS: Alkaline Phosphatase* 70 U/L (40-150); Anion Gap 8 mEq/L (7-15); Aspartate Amino Transferase* 29 U/L (12-35); Bilirubin Total* 0.4 mg/dL (0.1-1.5); Blood Urea Nitrogen* 28 mg/dL (7-30); Carbon Dioxide* 25 mmol/L (20-32); Est. Creatinine Clearance* 37.24; Estimated Glomerular Filt Rate 59 ml/min; Total Protein* 7.1 g/dL (6.0-8.3)
[2024-01-02 10:50] LABS: Alanine Aminotransferase* 15 U/L (4-35); Glucose* 101 mg/dL (60-115)
[2024-01-02] MEDS: diphenhydrAMINE 25 MG CAPSULE 50 MG PO (11:37)
[2024-01-02] MEDS: ACETAMINOPHEN 325 MG TABLET 650 MG PO (11:39)
[2024-01-02] MEDS: 0.9 % SODIUM CHLORIDE 250 ml IV (11:40)
[2024-01-02] MEDS: SODIUM CHLORIDE 0.9 % (FLUSH) 10 ML SYRINGE IVF (11:41)
[2024-01-02] MEDS: HEPARIN 500 UNIT/5 ML SYRINGE IVF (11:42)
[2024-01-14] MEDS: SODIUM CHLORIDE 0.9 % (FLUSH) 10 ML SYRINGE IVF (14:31)
[2024-01-14] MEDS: HEPARIN 500 UNIT/5 ML SYRINGE IVF (14:31)
[2024-01-14 14:44] LABS: Basophils Absolute Auto 0.01 K/uL (0.00-0.30); Basophils Percent Auto 0.2 % (0.0-3.0); Eosinophils Percent Auto 3.2 % (0.0-7.0); Hematocrit 31.4 % (33.0-51.0); Hemoglobin* 9.7 gm/dL (12.0-16.0); Immature Granulocytes Abs Auto 0.01 K/uL (0.00-0.30); Immature Granulocytes Pct Auto 0.2 %; Lymphocytes Percent Auto 17.9 % (20-44); Mean Corpuscular HGB Conc 31 gm/dL (32-36); Mean Corpuscular Hemoglobin 30 pg (26-34); Mean Corpuscular Volume 98 fL (80-100); Neutrophils Absolute Auto 4.32 K/uL (1.7-7.0); Neutrophils Percent Auto 69.5 % (42.0-72.0); Platelet Count* 180 K/uL (140-440); RDW Coefficient of Variation % 13.5 % (11.5-15.5); Red Blood Count 3.21 m/uL (4.00-5.20); White Blood Count* 6.21 K/uL (4.50-11.00)
[2024-01-14 14:49] LABS: Slide Review Reflex No
[2024-01-14 14:56] LABS: Albumin* 3.9 g/dL (3.3-5.0); Chloride* 104 mmol/L (96-114); Sodium* 136 mmol/L (135-149)
[2024-01-14 14:57] LABS: Potassium* 3.8 mmol/L (3.6-5.1)
[2024-01-14 14:59] LABS: Alanine Aminotransferase* 16 U/L (4-35); Alkaline Phosphatase* 64 U/L (40-150); Anion Gap 3 mEq/L (7-15); Aspartate Amino Transferase* 30 U/L (12-35); Bilirubin Total* 0.3 mg/dL (0.1-1.5); Blood Urea Nitrogen* 33 mg/dL (7-30); Carbon Dioxide* 29 mmol/L (20-32); Est. Creatinine Clearance* 37.24; Estimated Glomerular Filt Rate 59 ml/min; Glucose* 91 mg/dL (60-115); Total Protein* 6.7 g/dL (6.0-8.3)
[2024-01-15 10:25] VITALS: BP 157/80; PULSE 74; TEMP 37.2; O2SAT 90
--- NOTE | 2024-01-15 11:03 | ONC.NURNOTE ---
Pt here for #3 Imfinzi today; saw Jennifer Cornell APRN last visit. Pt requesting to stop oral tylenol and benadryl premeds. Reviewed with Jennifer Cornell; pt tolerating Imfinzi well. Jennifer to DC premeds.
[2024-01-15] MEDS: SODIUM CHLORIDE 0.9 % (FLUSH) 10 ML SYRINGE IVF ×2 (11:27→12:29)
[2024-01-15] MEDS: 0.9 % SODIUM CHLORIDE 250 ml IV (11:27)
[2024-01-15] MEDS: HEPARIN 500 UNIT/5 ML SYRINGE IVF (12:29)
[2024-01-28 14:11] LABS: Basophils Absolute Auto 0.01 K/uL (0.00-0.30); Basophils Percent Auto 0.2 % (0.0-3.0); Eosinophils Absolute Auto 0.18 K/uL (0.00-0.50); Eosinophils Percent Auto 3.3 % (0.0-7.0); Hematocrit 32.8 % (33.0-51.0); Hemoglobin* 10.2 gm/dL (12.0-16.0); Lymphocytes Absolute Auto 1.17 K/uL (0.90-2.90); Lymphocytes Percent Auto 21.3 % (20-44); Mean Corpuscular HGB Conc 31 gm/dL (32-36); Mean Corpuscular Hemoglobin 30 pg (26-34); Mean Corpuscular Volume 97 fL (80-100); Neutrophils Percent Auto 67.2 % (42.0-72.0); Platelet Count* 187 K/uL (140-440); RDW Coefficient of Variation % 12.6 % (11.5-15.5); Red Blood Count 3.38 m/uL (4.00-5.20)
[2024-01-28 14:16] LABS: Slide Review Reflex No
[2024-01-28 14:25] LABS: Chloride* 104 mmol/L (96-114); Potassium* 4.4 mmol/L (3.6-5.1); Sodium* 137 mmol/L (135-149)
[2024-01-28 14:28] LABS: Alanine Aminotransferase* 14 U/L (4-35); Alkaline Phosphatase* 63 U/L (40-150); Anion Gap 4 mEq/L (7-15); Aspartate Amino Transferase* 29 U/L (12-35); Bilirubin Total* 0.2 mg/dL (0.1-1.5); Blood Urea Nitrogen* 37 mg/dL (7-30); Carbon Dioxide* 29 mmol/L (20-32)
[2024-01-28 14:29] LABS: Calcium* 8.7 mg/dL (8.4-10.6); Creatinine* 0.9 mg/dL (0.5-1.5); Est. Creatinine Clearance* 37.24; Estimated Glomerular Filt Rate 67 ml/min; Glucose* 97 mg/dL (60-115); Total Protein* 6.9 g/dL (6.0-8.3)
[2024-01-29] MEDS: SODIUM CHLORIDE 0.9 % (FLUSH) 10 ML SYRINGE IVF ×2 (14:04→15:28)
[2024-01-29] MEDS: 0.9 % SODIUM CHLORIDE 250 ml IV (14:05)
[2024-01-29] MEDS: HEPARIN 500 UNIT/5 ML SYRINGE IVF (15:29)
--- NOTE | 2024-01-30 11:23 | URNOTE ---
Prior auth is not requied for Durvalumab ([id number]). Services are based on medical necessity and follow medicare guidelines.
[2024-02-11 13:25] LABS: Basophils Absolute Auto 0.02 K/uL (0.00-0.30); Basophils Percent Auto 0.4 % (0.0-3.0); Eosinophils Absolute Auto 0.19 K/uL (0.00-0.50); Eosinophils Percent Auto 3.5 % (0.0-7.0); Hematocrit 34.6 % (33.0-51.0); Hemoglobin* 10.8 gm/dL (12.0-16.0); Immature Granulocytes Abs Auto 0.01 K/uL (0.00-0.30); Immature Granulocytes Pct Auto 0.2 %; Lymphocytes Percent Auto 19.2 % (20-44); Mean Corpuscular HGB Conc 31 gm/dL (32-36); Mean Corpuscular Hemoglobin 30 pg (26-34); Mean Corpuscular Volume 95 fL (80-100); Monocytes Percent Auto 9.8 % (0.0-11.0); Neutrophils Absolute Auto 3.63 K/uL (1.7-7.0); Neutrophils Percent Auto 66.9 % (42.0-72.0); Platelet Count* 175 K/uL (140-440); RDW Coefficient of Variation % 13.2 % (11.5-15.5); Red Blood Count 3.65 m/uL (4.00-5.20); White Blood Count* 5.42 K/uL (4.50-11.00)
[2024-02-11 13:29] LABS: Slide Review Reflex No
[2024-02-11 13:49] LABS: Albumin* 4.1 g/dL (3.3-5.0); Chloride* 103 mmol/L (96-114); Sodium* 136 mmol/L (135-149)
[2024-02-11 13:50] LABS: Potassium* 4.1 mmol/L (3.6-5.1)
[2024-02-11 13:52] LABS: Alkaline Phosphatase* 59 U/L (40-150); Anion Gap 5 mEq/L (7-15); Aspartate Amino Transferase* 30 U/L (12-35); Bilirubin Total* 0.3 mg/dL (0.1-1.5); Blood Urea Nitrogen* 30 mg/dL (7-30); Carbon Dioxide* 28 mmol/L (20-32); Creatinine* 0.9 mg/dL (0.5-1.5); Est. Creatinine Clearance* 39.04; Estimated Glomerular Filt Rate 67 ml/min
[2024-02-11 13:53] LABS: Alanine Aminotransferase* 15 U/L (4-35); Glucose* 89 mg/dL (60-115)
[2024-02-12 14:00] VITALS: BP 145/87; PULSE 71; RESP 16; TEMP 36.7; O2SAT 94
[2024-02-12] MEDS: SODIUM CHLORIDE 0.9 % (FLUSH) 10 ML SYRINGE IVF ×2 (14:25→15:32)
[2024-02-12] MEDS: 0.9 % SODIUM CHLORIDE 250 ml IV (14:26)
[2024-02-12] MEDS: DURVALUMAB 1,500 MG, TUBING PRIMARY 1 EACH, In-line 0.2 micron filter set 1 EACH in 0.9... 280 MG IVPB (14:27)
[2024-02-12] MEDS: HEPARIN 500 UNIT/5 ML SYRINGE IVF (15:32)
[2024-03-05] MEDS: SODIUM CHLORIDE 0.9 % (FLUSH) 10 ML SYRINGE IVF (13:16)
[2024-03-05] MEDS: HEPARIN 500 UNIT/5 ML SYRINGE IVF (13:16)
[2024-03-05 13:17] LABS: Basophils Absolute Auto 0.02 K/uL (0.00-0.30); Basophils Percent Auto 0.4 % (0.0-3.0); Eosinophils Absolute Auto 0.17 K/uL (0.00-0.50); Eosinophils Percent Auto 3.2 % (0.0-7.0); Hematocrit 35.6 % (33.0-51.0); Hemoglobin* 11.3 gm/dL (12.0-16.0); Immature Granulocytes Abs Auto 0.01 K/uL (0.00-0.30); Immature Granulocytes Pct Auto 0.2 %; Lymphocytes Percent Auto 19.1 % (20-44); Mean Corpuscular HGB Conc 32 gm/dL (32-36); Mean Corpuscular Hemoglobin 30 pg (26-34); Mean Corpuscular Volume 94 fL (80-100); Monocytes Percent Auto 8.3 % (0.0-11.0); Neutrophils Absolute Auto 3.71 K/uL (1.7-7.0); Neutrophils Percent Auto 68.8 % (42.0-72.0); Platelet Count* 163 K/uL (140-440); RDW Coefficient of Variation % 13.7 % (11.5-15.5); White Blood Count* 5.39 K/uL (4.50-11.00)
[2024-03-05 13:28] LABS: Slide Review Reflex No
[2024-03-05 13:39] LABS: Albumin* 4.2 g/dL (3.3-5.0); Chloride* 101 mmol/L (96-114)
[2024-03-05 13:40] LABS: Potassium* 4.1 mmol/L (3.6-5.1); Sodium* 136 mmol/L (135-149)
[2024-03-05 13:42] LABS: Anion Gap 9 mEq/L (7-15); Bilirubin Total* 0.2 mg/dL (0.1-1.5); Carbon Dioxide* 26 mmol/L (20-32); Creatinine* 1.2 mg/dL (0.5-1.5); Est. Creatinine Clearance* 32.53; Estimated Glomerular Filt Rate 48 ml/min; Total Protein* 7.2 g/dL (6.0-8.3)
[2024-03-05 13:43] LABS: Alanine Aminotransferase* 15 U/L (4-35); Alkaline Phosphatase* 63 U/L (40-150); Aspartate Amino Transferase* 29 U/L (12-35); Blood Urea Nitrogen* 35 mg/dL (7-30); Glucose* 99 mg/dL (60-115)
== END 2024-03-09 23:59 | disposition home or self-care (01) ==
LOC: CCIC 13:15
PROVIDERS: Clinical Nurse Specialist; Internal Medicine Hematology & Oncology; PCP Internal Medicine; Referring Provider Internal Medicine; Visit Provider Internal Medicine Hematology & Oncology
DX: C34.91 Malignant neoplasm of unspecified part of right bronchus or lung (principal); E03.9 Hypothyroidism, unspecified
CPT/HCPCS: 36415; 36430; 36591; 71260; 80053; 84439; 84443; 85025; 86850; 86900; 86901; 86922; 96376; 96413; 96417; 99202; 99203; 99205; 99211; 99214; 99215; G0463; A9270; J1100; J1200; J1642; J2469; J7050; J9045; J9173; J9267; P9016; Q9967; S0028

== ENCOUNTER 2024-04-01 14:10 | Emergency (ER) | payer MEDICARE, BC, SELFPAY ==
[2024-04-01 14:14] VITALS: BP 157/90; PULSE 75; RESP 24; TEMP 37.3; O2SAT 95; BMI 23.4
--- NOTE | 2024-04-01 14:40 | CRLHL7_ITS ---
For Patients: As a result of the Century Cures Act, medical imaging exams and procedure reports are released immediately into your electronic medical record. You may view this report before your referring provider. If you have questions, please contact your health care provider. Indication: SOB. CP. HX OF PE Technique: CTA chest, pulmonary embolism protocol, utilizing 95 mL Isovue 370 Comparison: CT chest on March 05, 2024 Findings: No thyroid nodules. No new pathologically enlarged lymph nodes throughout the thorax. Calcified left hilar lymph nodes. The heart is normal in size. No CT evidence of right heart strain. No significant pericardial effusion. Coronary artery calcifications. The thoracic aorta and pulmonary artery are normal in caliber. There is no pulmonary embolism. No new focal airspace consolidation, pleural effusion, or pneumothorax. Right lower lobe spiculated nodule is grossly unchanged in size and appearance measuring up to approximately 2.3 centimeters. Similar-appearing focus of atelectasis/scarring in the right suprahilar region with surrounding soft tissue densities around the bronchovascular bundle and similar appearing atelectasis/scarring and soft tissue density in the medial aspect of the right lower lobe adjacent to the right mainstem bronchus. Similar-appearing ill-defined ground-glass density in the right lower lobe laterally (series number 4, image 118). Faint ground-glass density within the anterior aspect of the left lower lobe is unchanged (series number 4, image 102-108). The visualized upper abdomen is without acute abnormality. No acute fracture or malalignment. Impression: 1. No CT evidence of an acute process involving the thorax; specifically, no pulmonary embolism. 2. Stable spiculated pulmonary nodule in the right lower lobe measuring 2.3 centimeters. Please note that all CT scans at this facility use dose modulation, iterative reconstruction, and/or weight-based dosing when appropriate to reduce radiation dose to as low as reasonably achievable. Dictated by Yusef Jones MD @ 04/01/2024 3:35:02 PM (Electronically Signed)
--- NOTE | 2024-04-01 14:43 | ED.GENADULT ---
HPI - General Adult General Chief complaint: Shortness of Breath/Dyspnea Stated complaint: Chest pain-ref by cancer center Time Seen by Provider: 04/01/24 14:15 History of Present Illness HPI narrative: [age] white female undergoing treatment for metastatic lung cancer. She is currently undergoing radiation. She went to radiation center today and was and told them she was having some chest discomfort and tightness. She took a rescue inhaler last night as she has COPD but that did not seem to help much she has had some fever and chills as well. No productive cough although she has had a stroke in the past and has difficulty getting material out when she does cough or choke on anything. No history of aspiration. She was asked to be seen in the ER by the staff at the radiation oncology center. She denies leg swelling edema. She is on Eliquis and has not missed any she has had a PE in the past, she has had lung cancer as mention. Related Data Home Medications ?Medication ?Instructions ?Recorded ?Confirmed acetaminophen 500 mg tablet 1,000 mg PO Q6H PRN 09/11/23 03/11/24 (Tylenol Extra Strength) albuterol sulfate 90 mcg/actuation 1 - 2 puff inhalation Q4H PRN 09/11/23 03/11/24 aerosol inhaler wheezing cholecalciferol (vitamin D3) 10 10 mcg PO QDAY 09/11/23 03/11/24 mcg (400 unit) tablet fluticasone fur. 100 mcg-umeclid 1 ea inhalation DAILY 09/11/23 03/11/24 62.5 mcg-vilant 25 mcg inhalat.powder (Trelegy Ellipta) levothyroxine 75 mcg tablet 75 mcg PO DAILY 09/11/23 03/11/24 sertraline 50 mg tablet 50 mg PO DAILY 09/11/23 03/11/24 simvastatin 40 mg tablet 40 mg PO QPM 09/11/23 03/11/24 amino acid-hydrolyzed 1 ea PO DAILY 09/24/23 03/11/24 collagen-whey 15 gram-100 kcal/30 mL oral liquid apixaban 5 mg tablet (Eliquis) 5 mg PO BID 10/29/23 03/11/24 multivitamin with iron 1 tab PO QDAY 12/12/23 03/11/24 antiarthritic combination no.2 900 mg PO 03/11/24 03/11/24 mg tablet (glucosamine-chondroitin) Previous Rx's ?Medication ?Instructions ?Recorded ondansetron HCl 4 mg tablet 4 mg PO Q8H #30 tabs 09/24/23 prochlorperazine maleate 5 mg 5 mg PO TID PRN nausea and 09/24/23 tablet (Compazine) vomiting #30 tabs doxycycline hyclate 100 mg capsule 100 mg PO BID 7 days #14 caps 04/01/24 prednisone 20 mg tablet 20 mg PO BID #10 tabs 04/01/24 Allergies Allergy/AdvReac Type Severity Reaction Status Date / Time aspirin Allergy Intermediate Unknown Verified 04/01/24 15:24 atenolol Allergy Intermediate psoriasis Verified 04/01/24 15:24 Penicillins Allergy Unknown Verified 04/01/24 15:24 Review of Systems Status of ROS: Reports: 6 or more systems reviewed and unremarkable except as noted in History and below [facility] Medical History Hx pulmonary embolism ?Z86.711 - Personal history of pulmonary embolism (ICD-10) History of endocarditis in adulthood ?Z86.79 - Personal history of other diseases of the circulatory system (ICD-10) Health care directive on file ?Z78.9 - Other specified health status (ICD-10) Vegetative endocarditis of mitral valve ?I33.0 - Acute and subacute infective endocarditis (ICD-10) Surgical History Hx of tubal ligation ?Z98.51 - Tubal ligation status (ICD-10) Social History Narrative: Social history is negative for smoking. She quit smoking in 2011 at the time she had her stroke. Prior to that she smoked at least for 50 years. Occasional alcohol intake. 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 Smoking Status: Former smoker How often do you have a drink containing alcohol: monthly or less How many standard drinks containing alcohol do you have on a typical day: 1 or 2 How often do you have six or more drinks on one occasion: Never AUDIT-C Alcohol total score: 1 Non-prescribed substance use: denies use Caffeine: Yes (coffee) Exam Narrative: Exam Narrative: Objective: Vital signs are slightly elevated temp at 99.2? blood pressure slightly elevated O2 sat 95% on room air HEENT is unremarkable Neck is supple Chest clear no rales or wheezing Heart rhythm regular 2/6 systolic murmur Abdomen benign soft Extremities are no edema neurologic nonfocal Good peripheral perfusion noted. Const: Vital Signs, click to edit/add: Vital Signs - 24 hr 04/01/24 14:14 04/01/24 15:15 04/01/24 15:20 Temperature 99.2 F Pulse Rate 71 Pulse Rate [Pulse Oximeter] 75 Respiratory Rate 24 16 Blood Pressure 162/87 H Blood Pressure [Ri ght Upper Arm] 157/90 H Pulse Oximetry 95 98 95 Oxygen Delivery Me thod Room Air Room Air 04/01/24 15:45 04/01/24 16:05 Temperature 99.2 F Pulse Rate 78 Pulse Rate [Pulse Oximeter] 75 Respiratory Rate 16 16 Blood Pressure Blood Pressure [Ri ght Upper Arm] 157/90 H Pulse Oximetry 95 Oxygen Delivery Me thod Course Vital Signs Vital signs: Initial Vital Signs Temperature 99.2 F 04/01/24 14:14 Temperature Source Temporal Artery Scan 04/01/24 14:14 Pulse Rate 75 04/01/24 14:14 Respiratory Rate 24 04/01/24 14:14 Blood Pressure 157/90 H 04/01/24 14:14 Blood Pressure Mean 112 H 04/01/24 14:14 Blood Pressure Position Sitting 04/01/24 14:14 Pulse Oximetry 95 04/01/24 14:14 Oxygen Delivery Method Room Air 04/01/24 14:14 Vital Signs Temperature 99.2 F 04/01/24 14:14 Pulse Rate 75 04/01/24 14:14 Respiratory Rate 24 04/01/24 14:14 Blood Pressure 157/90 H 04/01/24 14:14 Pulse Oximetry 95 04/01/24 14:14 Oxygen Delivery Method Room Air 04/01/24 14:14 Temperature 99.2 F 04/01/24 16:05 Pulse Rate 75 04/01/24 16:05 Respiratory Rate 16 04/01/24 16:05 Blood Pressure 157/90 H 04/01/24 16:05 Pulse Oximetry 95 04/01/24 15:45 Oxygen Delivery Method Room Air 04/01/24 15:20 Medications Administered Medications: Discontinued Medications Generic Name Dose Route Start Last Admin Trade Name Nara PRN Reason Stop Dose Admin Doxycycline Hyclate 100 mg 04/01/24 15:46 04/01/24 16:00 Doxycycline Hyclate 100 Mg PO 04/01/24 15:47 100 mg ONCE ONE Administration Prednisone 50 mg 04/01/24 15:46 04/01/24 16:00 Prednisone 10 Mg Tablet PO 04/01/24 15:47 50 mg ONCE ONE Administration Medical Decision Making [facility] Narrative Medical decision making narrative: [age] white female with a history of chills chest tightness last night, has history of adenocarcinoma of the lung. She was scheduled to get radiation today and had some chest tightness last night she also has history of COPD for which she takes inhalers occasionally. The patient at this point given her low-grade temp and chills probably has some type of infection will check COVID, check a chest CT scan to rule out pneumonia and rule out PE. Will also check a troponin and EKG if this is reassuring I think we could likely 1 of giving her antibiotics and perhaps even some steroids and have her continue with her radiation. Will review the lab studies a return patient her were comfortable plan. Addendum 3:49 p.m.: Patient's EKG shows normal sinus rhythm no acute ST T wave changes by my read. Her CT scan of the chest shows no evidence of acute thoracic process, no portal pulmonary embolism, no pneumonia. There is a stable spiculated pulmonary nodule right lower lobe measuring 2.3 cm. Patient's white count was normal 7760 hemoglobin 11.9, INR is 1.23, panel 7 is normal other than BUN slightly elevated at 34, CRP is 1.7, viral studies are negative. At this point given her COPD history and her mild fever fever last night and cough, and her breathing issue I think covering her with prednisone 20 mg twice a day for a few days would be appropriate as well as doxycycline 100 mg b.i.d. x7 days, she can recheck with the radiation oncologist today. They may be able to even do a treatment today. She and her are comfortable plan and will be discharged as above. Return as needed. Lab Data Labs: Lab Results 04/01/24 04/01/24 Range/Units 14:50 Unknown WBC 7.76 (4.50-11.00) K/uL RBC 4.07 (4.00-5.20) m/uL Hgb 11.9 L (12.0-16.0) gm/dL Hct 37.8 (33.0-51.0) % MCV 93 (80-100) fL MCH 29 (26-34) pg MCHC 32 (32-36) gm/dL RDW Coeff of Lili 14.3 (11.5-15.5) % Plt Count 159 (140-440) K/uL Neut % (Auto) 73.2 H (42.0-72.0) % Lymph % (Auto) 15.7 L (20-44) % [place] % (Auto) 9.5 (0.0-11.0) % Eos % (Auto) 0.9 (0.0-7.0) % Baso % (Auto) 0.1 (0.0-3.0) % Neut # (Auto) 5.70 (1.7-7.0) K/uL Lymph # (Auto) 1.20 (0.90-2.90) K/uL [place] # (Auto) 0.70 (0.00-0.90) K/UL Eos # (Auto) 0.07 (0.00-0.50) K/uL Baso # (Auto) 0.01 (0.00-0.30) K/uL Abs Immat Gran (auto) 0.05 (0.00-0.30) K/uL Imm/Tot Granulo (auto) 0.6 % INR 1.23 H (0.91-1.10) Sodium 135 (135-149) mmol/L Potassium 4.1 (3.6-5.1) mmol/L Chloride 98 (96-114) mmol/L Carbon Dioxide 28 (20-32) mmol/L Anion Gap 9 (7-15) mEq/L BUN 34 H (7-30) mg/dL Creatinine 1.0 (0.5-1.5) mg/dL Estimated Creat Clear 39.04 Estimated GFR 59 ml/min Glucose 97 (60-115) mg/dL Lactate 0.9 (0.5-1.9) mmol/L Calcium 9.4 (8.4-10.6) mg/dL Total Bilirubin 0.6 (0.1-1.5) mg/dL Direct Bilirubin 0.1 (0.0-0.5) mg/dL AST 28 (12-35) U/L ALT 17 (4-35) U/L Alkaline Phosphatase 68 (40-150) U/L Troponin I 0.01 (0.01-0.04) ng/mL C-Reactive Protein 1.7 H (0.5-1.0) mg/dL NT-Pro-B Natriuret Pep 875 pg/mL Total Protein 7.8 (6.0-8.3) g/dL Albumin 4.4 (3.3-5.0) g/dL SARS-CoV-2 (PCR) Negative SARS-CoV-2 (Negative) Influenza Type A (PCR) Negative PCR FLU A (Negative) Influenza Type B (PCR) Negative PCR FLU B (Negative) RSV (PCR) Negative PCR RSV (Negative) POC Creatinine 1.1 (0.6-1.3) mg/dl Discharge Plan Discharge Clinical Impression: Chest pain, COPD (chronic obstructive pulmonary disease), Adenocarcinoma of lung Patient Disposition: Home w/ Parent or Adult Condition: Stable Additional Instructions: Prednisone and doxycycline as prescribed, recheck with the radiation oncologist today, your viral studies were all negative, because you have COPD, we will try some prednisone and doxycycline. Your chest CT scan looked about the same as prior no evidence of pneumonia or blood clot. Your heart studies were also normal Activity Level: Light activity Discharge Diet: Regular Prescriptions: New prednisone 20 mg tablet 20 mg PO BID Qty: 10 0RF doxycycline hyclate 100 mg capsule 100 mg PO BID 7 Days Qty: 14 0RF No Action Eliquis 5 mg tablet 5 mg PO BID multivitamin with iron Tablet 1 tab PO QDAY glucosamine-chondroitin 900 mg tablet PO simvastatin 40 mg tablet 40 mg PO QPM sertraline 50 mg tablet 50 mg PO DAILY levothyroxine 75 mcg tablet 75 mcg PO DAILY Trelegy Ellipta 100-62.5-25 mcg blister with device 1 ea inhalation DAILY albuterol sulfate 90 mcg/actuation HFA aerosol inhaler 1 - 2 puff inhalation Q4H PRN (Reason: wheezing) acetaminophen [Tylenol Extra Strength] 500 mg tablet 1,000 mg PO Q6H PRN cholecalciferol (vitamin D3) 10 mcg (400 unit) tablet 10 mcg PO QDAY amino ac-hydroly collagen-whey 15 gram-100 kcal/30 mL liquid 1 ea PO DAILY ondansetron HCl 4 mg tablet 4 mg PO Q8H Qty: 30 0RF prochlorperazine maleate [Compazine] 5 mg tablet 5 mg PO TID PRN (Reason: nausea and vomiting) Qty: 30 0RF Follow Up/Referrals: [facility] [Primary Care Provider] - Stand Alone Forms: MyHealth Info Instructions
[2024-04-01 15:03] LABS: Lactate* 0.9 mmol/L (0.5-1.9)
[2024-04-01 15:09] LABS: Creatinine, Point-of-Care* 1.1 mg/dl (0.6-1.3)
[2024-04-01 15:12] LABS: Basophils Absolute Auto 0.01 K/uL (0.00-0.30); Basophils Percent Auto 0.1 % (0.0-3.0); Eosinophils Absolute Auto 0.07 K/uL (0.00-0.50); Eosinophils Percent Auto 0.9 % (0.0-7.0); Hematocrit 37.8 % (33.0-51.0); Hemoglobin* 11.9 gm/dL (12.0-16.0); Immature Granulocytes Abs Auto 0.05 K/uL (0.00-0.30); Immature Granulocytes Pct Auto 0.6 %; Lymphocytes Percent Auto 15.7 % (20-44); Mean Corpuscular HGB Conc 32 gm/dL (32-36); Mean Corpuscular Hemoglobin 29 pg (26-34); Mean Corpuscular Volume 93 fL (80-100); Monocytes Percent Auto 9.5 % (0.0-11.0); Neutrophils Percent Auto 73.2 % (42.0-72.0); Platelet Count* 159 K/uL (140-440); RDW Coefficient of Variation % 14.3 % (11.5-15.5); Red Blood Count 4.07 m/uL (4.00-5.20); White Blood Count* 7.76 K/uL (4.50-11.00)
[2024-04-01 15:15] VITALS: O2SAT 98
[2024-04-01 15:19] LABS: Slide Review Reflex No
[2024-04-01 15:20] VITALS: BP 162/87; PULSE 71; RESP 16; O2SAT 95
[2024-04-01 15:22] LABS: Albumin* 4.4 g/dL (3.3-5.0); Chloride* 98 mmol/L (96-114)
[2024-04-01 15:23] LABS: INR 1.23 (0.91-1.10); Potassium* 4.1 mmol/L (3.6-5.1); Prothrombin Time 16.3 Seconds; Sodium* 135 mmol/L (135-149)
[2024-04-01 15:25] LABS: Est. Creatinine Clearance* 39.04; Estimated Glomerular Filt Rate 59 ml/min
[2024-04-01 15:26] LABS: Alanine Aminotransferase* 17 U/L (4-35); Alkaline Phosphatase* 68 U/L (40-150); Anion Gap 9 mEq/L (7-15); Aspartate Amino Transferase* 28 U/L (12-35); Bilirubin Direct* 0.1 mg/dL (0.0-0.5); Bilirubin Total* 0.6 mg/dL (0.1-1.5); Blood Urea Nitrogen* 34 mg/dL (7-30); Calcium* 9.4 mg/dL (8.4-10.6); Carbon Dioxide* 28 mmol/L (20-32); Glucose* 97 mg/dL (60-115); Total Protein* 7.8 g/dL (6.0-8.3)
[2024-04-01 15:29] LABS: C Reactive Protein* 1.7 mg/dL (0.5-1.0)
[2024-04-01 15:37] LABS: Troponin I* 0.01 ng/mL (0.01-0.04)
[2024-04-01 15:38] LABS: NT Pro B Type NatriureticPept* 875 pg/mL
[2024-04-01 15:41] LABS: PCR FLU A Negative PCR FLU A (Negative); PCR FLU B Negative PCR FLU B (Negative); PCR RSV Negative PCR RSV (Negative); SARS PCR* Negative SARS-CoV-2 (Negative)
--- OUTSIDE RECORDS SUMMARY | 2024-04-01 15:41 | XMS_ITS | Referral Summary ---
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 For routine questions regarding patient records, call [phone] during business hours, M-F 8:00 AM - 5:00 PM Central Time. Record requests for emergency care only can be directed to [phone] at any time.[facility] Encounters Date Type Department Care Team Description 04/01/2024 Clinical Communication Department of Radiation Oncology in [address] [phone] Elsie Dewey M.D. 04/01/2024 1:31 PM CDT Hospital Encounter Department of Radiation Oncology in [address] [phone] Elsie Dewey M.D. Malignant Neoplasm Of Lung Right (HCC) 03/30/2024 1:49 PM CDT Hospital Encounter Department of Radiation Oncology in [address] [phone] Elsie Dewey M.D. 03/24/2024 10:57 AM CDT - 03/25/2024 9:02 AM CDT Hospital Encounter Department of Radiation Oncology in [address] [phone] Elsie Dewey M.D. Malignant Neoplasm Of Lung Right (HCC) 03/24/2024 10:26 AM CDT - 03/24/2024 10:56 AM CDT Hospital Encounter Department of Radiation Oncology in [address] [phone] Elsie Dewey M.D. Malignant Neoplasm Of Lung Right (HCC) (Primary Dx) 03/20/2024 Orders Only Department of Radiation Oncology in [address] [phone] Alberitna Stiles APRN, C.N.P., D.N.P. Malignant Neoplasm Of Lung Right (HCC) (Primary Dx) 03/19/2024 10:39 AM CDT - 03/19/2024 11:59 PM CDT Hospital Encounter Department of Radiology in [place], [place] [address] [place] [address] Laya Mitchell M.D. Malignant Neoplasm Of Lung Left (HCC); Malignant Neoplasm Of Lung Right (HCC); Nodules Pulmonary Multiple; Lymphadenopathy Mediastinum Discharge Disposition: Home or Self Care 03/11/2024 Orders Only Department of Oncology in [place], [place] [address] [place] [address] Laya Mitchell M.D. Malignant Neoplasm Of Lung Left (HCC) (Primary Dx); Malignant Neoplasm Of Lung Right (HCC); Nodules Pulmonary Multiple; Lymphadenopathy Mediastinum 03/09/2024 2:34 PM CDT - 03/09/2024 4:32 PM CDT Hospital Encounter Department of Radiation Oncology in [address] [phone] Elsie Dewey M.D. Malignant Neoplasm Of Lung Left (HCC) (Primary Dx); Malignant Neoplasm Of Lung Right (HCC) 01/01/2024 2:31 PM CDT - 01/01/2024 4:08 PM CDT Hospital Encounter Department of Radiation Oncology in [place], [place] [address] [place] [address] Elsie Dewey M.D. Malignant Neoplasm Of Lung Right (HCC) (Primary Dx) from Last 3 Months Allergies Active Allergy Reactions Criticality Noted Date Comments Aspirin GI bleeding 03/21/2012 Atenolol Rash 10/29/2019 Penicillins Other (see comments) 09/22/2011 Unknown reaction Medications multivitamin tablet Take 1 tablet by mouth daily. 2 Active levothyroxine (SYNTHROID, LEVOTHROID) 75 mcg tablet Take 75 mcg by mouth daily. 2 Active simvastatin (ZOCOR) 40 mg tablet Take 40 mg by mouth at bedtime. 2 Active sertraline (ZOLOFT) 50 mg tablet Take 50 mg by mouth daily. 2 Active warfarin (COUMADIN) 2 mg tablet TAKE 1.5 TABLETS BY MOUTH EVERY SAT AND SAT; TAKE TWO TABLETS ALL OTHER DAYS OR DIRECTED 3 Active albuterol 90 mcg/actuation inhaler INHALE ONE TO TWO PUFFS BY MOUTH EVERY 4 HOURS NEEDED FOR SHORTNESS OF BREATH OR WHEEZING Active prochlorperazin e (COMPAZINE) 5 mg tablet Take 5 mg by mouth every 8 (eight) hours as needed for nausea or vomiting. 4 Active ondansetron (ZOFRAN) 4 mg tablet Take 1 tablet by mouth 3 (three) times a day with meals. 4 Active Trelegy Ellipta 100-62.5-25 mcg inhaler Inhale 1 puff daily. Active cholecalciferol , vitamin D3, 10 mcg (400 unit) capsule Take 10 mcg by mouth. 4 Active Eliquis 5 mg tablet Take 5 mg by mouth 2 (two) times a day. Active Active Problems Problem Noted Date Diagnosed Date Malignant Neoplasm Of Lung Right 08/29/2023 Cancer Staging:Clinical: Unsigned Malignant Neoplasm Of Lung Left 03/03/2015 Immunizations Name Administration Dates Next Due Influenza Split 03/24/2013 Social History Tobacco Use Types Packs/Day Years Used Date Smoking Tobacco: Former Cigarettes 2.5 49.1 0 09/25/1962 - 10/19/2011 Smokeless Tobacco: Never Tobacco Cessation:Counseling Given: Not Answered Alcohol Use Standard Drinks/Week Comments Yes 1 (1 standard drink = 0.6 oz pur e alcohol) [facility] Utilities Answer Date Recorded In the past 12 months has th e electric, gas, oil, or water company threatened to shut off services in your home? No 03/20/2024 Humiliation, Afraid, Rape, and Kick questionnair e [...] How often do you attend orthodox or restorationism serv ices? Never 10/31/2022 Do [...] and heating? Not hard at all 10/31/2022 [facility] of Occupat ional Health - Occupational Stress [...] exercise (like a brisk walk)? 3 days 03/20/2024 On average, how many minutes do you engage in exercise at this level? 40 min 03/20/2024 Hunger Vital Sign Answer Date Recorded Within the past 12 months, y ou worried that your food would run out before you got the money to buy more. Never true 03/20/20 Within the past 12 months, t he food you bought just didn't last and you didn't have money to get more. Never true 03/20/2024 PRAPARE - Transportation Answer Date Re corded In the past 12 months, has l ack of transportation kept you from medical appointments or from getting medications? No 09/2023 In the past 12 months, has l ack of transportation kept you from meetings, work, or from getting things needed for daily living? No 03/20/2024 Nutrition Answer Date Recorded On average, how many serving s of fruits and vegetables do you eat per day (serving size is equal to 1 cup or approximately the size of a tennis ball)? 0-2 03/20/2024 Dental Answer Date Recorded Dental: Regular Dentist Yes 03/20/20 Employment Answer Date Recorded Employment status Retired 03/20/2024 Housing Stability Answer Date Recorded What is your living situation today? I have a [facility] place to live 03/20/2024 Education Answer Date Recorded What is the highest level of school you have completed or the highest degree you have received? 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 Gender Identity Female 04/17/2018 10:15 AM CDT Sexual Orientation Straight 04/17/2018 10 :15 AM CDT Last Filed Vital Signs Vital Sign Reading Time Taken Comments Blood Pressure 141/74 04/01/2024 1:37 PM CDT Pulse 81 04/01/2024 1:37 PM CDT Temperature 37 ??C (98.6 ??F) 04/01/2024 1:37 PM CDT Respiratory Rate 18 10/01/2023 2:20 PM CDT Oxygen Saturation 98% 10/01/2023 2:20 PM CDT Inhaled Oxygen Concentration - - Weight 59.1 kg (130 lb 4.7 oz) 04/01/2024 1:37 P M CDT Height 157.5 cm (5' 2) 09/05/2023 6:11 AM CDT Body Mass Index 23.83 09/05/2023 6:11 AM CDT Plan of Treatment Upcoming Encounters Date Type Department Care Team (Late st Contact Info) Description 04/03/2024 12:30 PM CDT Appointment Department of Radiation Oncology in [place], [place] [address] [place] [phone] Elsie Dewey M.D. [address] [place] [phone] Jorje Cardona M.D. [address] [place] [phone] Procedures Procedure Name Priority Date/Time Associated Diagnosis Comments JAIME DAILY TREATMENT INFORMATION Routine 03/30/2024 2:27 PM CDT INITIAL RAD ONC TREATMENT PLANNING CT SIMULATION Routine 03/24/2024 11:00 AM CDT Malignant Neoplasm Of Lung Right (HCC) PET CT SKULL TO THIGH RAD - Routine (most inpatients and all outpatients) 03/19/2024 12:17 PM CDT Malignant Neoplasm Of Lung Left (HCC) Malignant Neoplasm Of Lung Right (HCC) Nodules Pulmonary Multiple Lymphadenopathy Mediastinum OUTSIDE CT BODY Routine 03/05/2024 1:40 PM CDT COMPREHENSIVE METABOLIC PANEL, S/P Routine 09/04/2023 12:11 PM CDT Malignant Neoplasm Of Lung Left (HCC) Nodules Pulmonary Multiple Lymphadenopathy Mediastinum Abnormal Positron Emission Tomography Scan from Last 3 Months or Most Recently Relevant to Health Maintenance Results * Aria Daily Treatment Information (03/30/2024 2:27 PM CDT) Course ID [id number] MENDOZA ARIA Course Start Date 4 08:42 CDT MENDOZA ARIA First Treatment Date 4 14:24 CDT MENDOZA ARIA Last Treatment Date 4 14:27 CDT MENDOZA ARIA Treatment Elapsed Days 0 MENDOZA ARIA Reference Point [id number] MENDOZA ARIA Dosage Given to Date cGy 1800 MENDOZA ARIA Session Dosage Given 1800 MENDOZA ARIA Plan ID [id number] MENDOZA ARIA Fractions Treated to Date 1 MENDOZA ARIA Planned Total Fractions 3 MENDOZA ARIA Prescribed Dose Per Fraction 1800 MENDOZA ARIA Prescription Dose in cGy 5400 MENDOZA ARIA Plan Primary Reference Point [id number] MENDOZA ARIA 03/30/2024 2:27 PM CDT us Provider Not In System RADIATION ONCOLOGY ORDERA BLES Final Result Performing Organization Address City/[facility] Co de Phone Number [place] JAIME na * Initial Rad Onc Treatment Planning CT Simulation without IV Contrast (03/24/2024 11:00 AM CDT) Narrative MENDOZA ARIA - 03/24/2024 11:00 AM CDT Melanie Leung RTT ? 03/24/2024 11:28 AM Initial Rad Onc Treatment Planning CT Simulation without IV Contrast Performed by: Elsie Dewey M.D. Authorized by: Elsie Dewey M.D. ?? us Elsie Dewey M.D. RADIATION ONCOLOGY ORDERA BLES Final Result REJI SANDOVAL na * PET CT Skull to Thigh FDG (03/19/2024 12:17 PM CDT) Anatomical Region Laterality Modality Body, Nuclear Medicine PET R ST LOS, PET ARZ LOS, Nuclear Medicine PET FLA LOS, Nuclear Medicine N/A Positron Emission Tomography (PET) Impressions 03/19/2024 1:51 PM CDT 1. ??Interval increase in size, density and FDG avidity of a right lower lobe pulmonary nodule compatible with local disease progression. 2. ??Decrease in density of the treated right upper lobe pulmonary nodule with new surrounding post radiation changes. Mild residual FDG avidity is favored to be inflammatory. 3. ??No FDG avid metastatic disease. 4. ??Diffuse thyroid radiotracer uptake is favored to be inflammatory in the setting of thyroiditis. Narrative 03/19/2024 1:51 PM CDT EXAM: PET CT SKULL TO THIGH FDG COMPARISON: 08/15/2023 INDICATION: Pulmonary nodule. Subsequent treatment strategy. F-[address] scan was performed from the mid calvarium through the upper thighs with CT fusion imaging for attenuation correction, anatomic coregistration, and respiratory gating only. Serum glucose at time of F-18 FDG injection: 112 mg/dL. Uptake time: 60 minutes following injection. The patient reports no recent vaccinations. FINDINGS: When compared to prior examination, the previously seen right lower lobe pulmonary nodule has increased in size and density now measuring 2.1 cm x 1.6 cm, previously 1.9 cm x 1.0 cm. Maximum SUV 5.3, previously 4.0. The previously treated right upper lobe pulmonary nodule has decreased in density and FDG avidity with maximum SUV 2.6, previously 25.8. Previously seen FDG avid mediastinal lymph nodes have resolved. Diffuse moderate thyroid gland radiotracer uptake. CT findings: Stable opercular encephalomalacia compatible with chronic injury. Bilateral ocular lens replacements. Right internal jugular central venous access catheter tip terminates in the superior cavoatrial junction. Calcified atherosclerosis throughout the thoracic aorta and major branches including the coronary arteries. Pancreatic calcifications consistent with chronic pancreatitis. Stable 6.5 cm cystic left adnexal lesion without FDG avidity. Calcified atherosclerosis throughout the abdominal aorta and major branches. New postradiation changes in the right upper lobe. RADIOPHARMACEUTICAL/MEDS: Route: intravenous fludeoxyglucose F 18 injection PENITENTIARY (FDG F-18),11.2 millicurie Procedure Note Corey Hillman M.D. - 03/19/2024 EXAM: PET CT SKULL TO THIGH FDG COMPARISON: 08/15/2023 INDICATION: Pulmonary nodule. Subsequent treatment strategy. F-[address] scan was performed from the mid calvarium through theupper thighs with CT fusion imaging for attenuation correction, anatomiccoregistration, and respiratory gating only. Serum glucose at time of F-18 FDG injection: 112 mg/dL. Uptake time: 60 minutes following injection. The patient reports no recent vaccinations. FINDINGS: When compared to prior examination, the previously seen right lower lobepulmonary nodule has increased in size and density now measuring 2.1 cm x1.6 cm, previously 1.9 cm x 1.0 cm. Maximum SUV 5.3, previously 4.0. The previously treated right upper lobe pulmonary nodule has decreased indensity and FDG avidity with maximum SUV 2.6, previously 25.8. Previouslyseen FDG avid mediastinal lymph nodes have resolved. Diffuse moderate thyroid gland radiotracer uptake. CT findings: Stable opercular encephalomalacia compatible with chronic injury.Bilateral ocular lens replacements. Right internal jugular central venousaccess catheter tip terminates in the superior cavoatrial junction.Calcified atherosclerosis throughout the thoracic aorta and major branches including the coronary arteries.Pancreatic calcifications consistent with chronic pancreatitis. Stable 6.5cm cystic left adnexal lesion without FDG avidity. Calcifiedatherosclerosis throughout the abdominal aorta and major branches. New postradiation changes in the right upper lobe. RADIOPHARMACEUTICAL/MEDS: Route: intravenous fludeoxyglucose F 18 injection PENITENTIARY (FDG F-18),11.2 millicurie IMPRESSION: 1. Interval increase in size, density and FDG avidity of a right lowerlobe pulmonary nodule compatible with local disease progression. 2. Decrease in density of the treated right upper lobe pulmonary nodulewith new surrounding post radiation changes. Mild residual FDG avidity isfavored to be inflammatory. 3. No FDG avid metastatic disease. 4. Diffuse thyroid radiotracer uptake is favored to be inflammatory inthe setting of thyroiditis. Laya Mitchell M.D. IMG NM PROCEDURES Final Resu lt * CT CHEST W CON-Outside CT Body (03/05/2024 1:40 PM CDT) Dheeraj ANN - 03/06/2024 1:36 PM CDT This order has been created and auto-finalized to support the import of outside images. If available, original interpretation can be found on the Media Tab in Chart Review, in Document Viewer, as an image in QREADS or as an Addendum. If a re-interpretation or overread is required please follow defined workflow.?? us Provider Not In System IMG CT PROCEDURES Final R esult [facility] NA * (ABNORMAL) Comprehensive Metabolic Panel (09/04/2023 12:11 [...] PM CDT Nilo Pickett APRN, C.N.P., D.N.P. 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 See document viewer. Healthcare Agents on File Name Relationship Healthcare Agent Relationship Communication Dario Henderson Spouse Health Care Agent Anita Fuentes Daughter First Alterna te Health Care Agent
--- OUTSIDE RECORDS SUMMARY | 2024-04-01 15:41 | XMS_ITS | Encounter Summary ---
Author Organization [facility] Address [address] [place] [address] Care Team Providers Care Director Life Insurance Name Role Phone Unavailable Primary Care Provider Unavailabl e Encounter Details Date Type Department Care Team (Late st Contact Info) Description 03/30/2024 1:49 PM CDT Hospital Encounter Department of Radiation Oncology in [place], [place] [address] [place] [phone] Elsie Dewey M.D. [address] [place] [phone] Social History Tobacco Use Types Packs/Day Years Used Date Smoking Tobacco: Former Cigarettes 2.5 49.1 0 09/25/1962 - 10/19/2011 Smokeless Tobacco: Never Alcohol Use Standard Drinks/Week Comments Yes 1 (1 standard drink = 0.6 oz pur e alcohol) [facility] Utilities Answer Date Recorded In the past 12 months has e electric, gas, oil, or water company [...] declined 10/31/2022 How often do you attend hoahaoism or methodist serv ices? Never 10/31/2022 Do you belong to any clubs o r organizations such as hoahaoism groups, unions, fraternal or athletic groups, or [...] and heating? Not hard at all 10/31/2022 [facility] of Occupat ional Health - Occupational Stress [...] your living situation today? I have a [facility] place to live 03/20/2024 Education Answer Date Recorded What is the highest level of school you have completed or the highest degree you have received? 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 [address] [place] [phone] Jorje Cardona M.D. [address] [place] [phone] documented as of this encounter Visit Diagnoses Not on filedocumented in this encounter
--- OUTSIDE RECORDS SUMMARY | 2024-04-01 15:41 | XMS_ITS | Clinical Summary ---
Author Organization [facility] Address [address] [place] [address] Care Team Providers Care Flooring Professional Name Role Phone Unavailable Primary Care Provider Unavailabl e Source Comments Patient records contain information from all sites at [facility]. For routine questions regarding patient records, call [phone] during business hours, M-F 8:00 AM - 5:00 PM Central Time. Record requests for emergency care only can be directed to [phone] at any time.[facility] Allergies Active Allergy Reactions Criticality Noted Date [...] Unsigned Malignant Neoplasm Of Lung Left 03/03/2015 Encounters Date Type Department Care Team Description 04/01/2024 1:31 PM CDT Hospital Encounter Department of Radiation Oncology in [address] [phone] Elsie Dewey M.D. Malignant Neoplasm Of Lung Right (HCC) 04/01/2024 Clinical Communication Department of Radiation Oncology in [address] [phone] Elsie Dewey M.D. 03/30/2024 1:49 PM CDT Hospital Encounter Department of Radiation Oncology in [address] [phone] Elsie Dewey M.D. 03/24/2024 10:57 AM CDT - 03/25/2024 9:02 AM CDT Hospital Encounter Department of Radiation Oncology in [address] [phone] Elsie Dewey M.D. Malignant Neoplasm Of Lung Right (HCC) 03/24/2024 10:26 AM CDT - 03/24/2024 10:56 AM CDT Hospital Encounter Department of Radiation Oncology in [address] [phone] Elsie Dewey M.D. Malignant Neoplasm Of Lung Right (HCC) (Primary Dx) 03/20/2024 Orders Only Department of Radiation Oncology in [place], [place] [address] [place] [phone] Albertina Stiles APRN, C.N.P., D.N.P. Malignant Neoplasm Of Lung Right (HCC) (Primary Dx) 03/19/2024 10:39 AM CDT - 03/19/2024 11:59 PM CDT Hospital Encounter Department of Radiology in [place], [place] [address], [place] [address] Laya Mitchell M.D. Malignant Neoplasm Of Lung Left (HCC); Malignant Neoplasm Of Lung Right (HCC); Nodules Pulmonary Multiple; Lymphadenopathy Mediastinum Discharge Disposition: Home or Self Care 03/11/2024 Orders Only Department of Oncology in [place], [place] [address] [place] [address] Laya Mitchell M.D. Malignant Neoplasm Of Lung Left (HCC) (Primary Dx); Malignant Neoplasm Of Lung Right (HCC); Nodules Pulmonary Multiple; Lymphadenopathy Mediastinum 03/09/2024 2:34 PM CDT - 03/09/2024 4:32 PM CDT Hospital Encounter Department of Radiation Oncology in [address] [phone] Elsie Dewey M.D. Malignant Neoplasm Of Lung Left (HCC) (Primary Dx); Malignant Neoplasm Of Lung Right (HCC) 01/01/2024 2:31 PM CDT - 01/01/2024 4:08 PM CDT Hospital Encounter Department of Radiation Oncology in [address] [phone] Elsie Dewey M.D. Malignant Neoplasm Of Lung [...] drink = 0.6 oz pur e alcohol) [facility] Utilities Answer Date Recorded In the past [...] declined 10/31/2022 How often do you attend zoroastrian or mormonism serv ices? Never 10/31/2022 Do you belong to any clubs o r organizations such as zoroastrian groups, unions, fraternal or athletic groups, or [...] and heating? Not hard at all 10/31/2022 [facility] of Occupat ional Health - Occupational Stress [...] your living situation today? [facility] live 03/20/2024 Education Answer Date Recorded What is the highest level of school you have completed or the highest degree you have received? 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 [address] [place] [phone] Jorje Cardona M.D. [address] [place] [phone] Health Maintenance Due Date Last Done Comments Bone Density Scan (Osteoporosis Screen) 1949 CT Colonography 1950 Cologuard 1950 FIT 1950 Hepatitis C Screening 1950 RSV vaccine - (32-36 weeks) or 60+ years (1 - Risk 60-74 years 1-dose series) 2009 Mammogram 11/24/2013 11/24/2012 (Perf ormed elsewhere), 10/15/2012 (Performed elsewhere), 10/16/2011 (Performed elsewhere) Colonoscopy 01/15/2022 01/16/2012 Colorectal Cancer Screening 01/15/2022 DTaP,Tdap,and Td Vaccines (2 - Td or Tdap) 10/16/2022 10/16/2012 Depression Screening (Annual PHQ-2) 06/17/2023 COVID-19 Vaccine ( season) 2024 03/28/2023, 04/02/2022, 04/20/2021, Additional history exists Influenza Vaccine (#1) 2024 , 04/02/2022, 04/20/2021, Additional history exists Thyroid Stimulating Hormone (TSH) test for thyroid function 03/28/2024 03/28/2023, 05/28/2022, 04/14/2021, Additional history exists Fasting Glucose for Diabetes Screening 09/03/2026 09/04/2023, 03/29/2023, 03/28/2023, Additional history exists Zoster Vaccines Completed 12/01/2018, 09/30/2018 Pneumococcal vaccine (65+ years) Completed 05/28/2022, 02/13/2016, 12/10/2013 Fall Risk Screen (Annual) Completed 09/26/2023 HPV Vaccines Aged Out No longer eligi ble based on patient's age to complete this topic Procedures Procedure Name Priority Date/Time Associated Diagnosis Comments ARIA DAILY TREATMENT INFORMATION Routine 03/30/2024 2:27 PM [...] Elapsed Days 0 MENDOZA ARIA Reference Point [id number] MENDOZA ARIA Dosage Given to Date cGy 1800 MENDOZA ARIA Session Dosage Given 1800 MENDOZA ARIA Plan ID [id number] MENDOZA ARIA Fractions Treated to Date 1 MENDOZA ARIA Planned Total Fractions 3 MENDOZA ARIA Prescribed Dose Per Fraction 1800 MENDOZA ARIA Prescription Dose in cGy 5400 MENDOZA ARIA Plan Primary Reference Point [id number] MENDOZA ARIA 03/30/2024 2:27 PM CDT us Provider Not In System RADIATION ONCOLOGY ORDERA BLES Final Result REJI SANDOVAL na * Initial Rad Onc Treatment Planning CT Simulation without IV Contrast (03/24/2024 11:00 AM CDT) Narrative [facility] - 03/24/2024 11:00 AM CDT Melanie Leung, RTT ? 03/24/2024 11:28 AM Initial Rad Onc Treatment Planning CT Simulation without IV Contrast Performed by: Elsie Dewey M.D. Authorized by: Elsie Dewey M.D. ?? us Elsie Dewey M.D. RADIATION ONCOLOGY ORDERA BLECornelio Final Result REJI SANDOVAL na * PET [...] RADIOPHARMACEUTICAL/MEDS: Route: intravenous fludeoxyglucose F 18 injection JAIL (FDG F-18),11.2 millicurie Procedure Note Corey Hillman [...] RADIOPHARMACEUTICAL/MEDS: Route: intravenous fludeoxyglucose F 18 injection JAIL (FDG F-18),11.2 millicurie IMPRESSION: 1. Interval increase [...] be inflammatory inthe setting of thyroiditis. Laya MARIA NM PROCEDURES Final Resu lt * CT CHEST W CON-Outside CT Body (03/05/2024 1:40 PM CDT) Narrative [facility] - 03/06/2024 1:36 PM CDT This order [...] System IMG CT PROCEDURES Final R esult [facility] NA * (ABNORMAL) Comprehensive Metabolic Panel (09/04/2023 [...] 12:11 PM CDT 09/04/2023 1:07 PM CDT us Nilo Pickett APRN, C.N.P., D.N.P. 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 See document viewer. Healthcare Agents on File Name Relationship Healthcare Agent Relationship Communication Dario Henderson Spouse Health Care Agent Anita Fuentes Daughter First Alterna te Health Care Agent
--- OUTSIDE RECORDS SUMMARY | 2024-04-01 15:41 | XMS_ITS | Encounter Summary ---
Author Organization [facility] Address [address] [place] [address] Care Team Providers Care Siebel Administrator Name Role Phone Unavailable Primary Care Provider Unavailabl e Reason for Referral * Outpatient (Routine) - Closed Specialty Diagnoses / Procedures Referred By Ervin frye Referred To Contact Radiation Oncology Diagnoses Malignant Neoplasm Of Lung Right (HCC) Elsie Dewey M.D. [address] [place] [address] Phone: tel: fax: Elsie Dewey M.D. [address] [place] [address] Phone: tel: fax: Referral ID Status Reason Start Date Expiration Date Visits Re quested Visits Authorized [id number] Closed 03/20/2024 09/19/2025 1 1 Scheduling Instructions Coordinate with SIM * Radiation Therapy (Routine) - Authorized Specialty Diagnoses / Procedures Referred By Ervin frye Referred To Contact Diagnoses Malignant Neoplasm Of Lung Right (HCC) Procedures Management Visit Elsie Dewey M.D. [address] [place] [address] Phone: tel: fax: [facility] Region Referral ID Status Reason Start Date Expiration Date V isits Requested Visits Authorized [id number] Authorized 03/20/2024 03/20/2025 10 10 * Radiation Therapy (Routine) - Closed Specialty Diagnoses / Procedures Referred By Contac t Referred To Contact Diagnoses Malignant Neoplasm Of Lung Right (HCC) Procedures Initial Rad Onc Treatment Planning CT Simulation without IV Contrast Elsie Dewey M.D. [address] [place] [address] Phone: tel: fax: [facility] Region Referral ID Status Reason Start Date Expiration Date Visits Re quested Visits Authorized [id number] Closed 03/20/2024 03/20/2025 1 1 * Radiation Therapy (Routine) - Authorized Specialty Diagnoses / Procedures Referred By Contac t Referred To Contact Diagnoses Malignant Neoplasm Of Lung Right (HCC) Procedures Prior Auth Rad Tx Elsie eDwey M.D. [address] [place] [phone] Phone: tel: fax: [facility] Referral ID Status Reason Start Date Expiration Date V isits Requested Visits Authorized [id number] Authorized 03/20/2024 03/20/2025 1 1 Encounter Details Date Type Department Care Team (Late st Contact Info) Description 03/20/2024 Orders Only Department of Radiation Oncology in [place], [place] [address] [place] [phone] Albertina Stiles APRN, C.N.P., D.N.P. [address] [place] [phone] Malignant Neoplasm Of Lung Right (HCC) (Primary Dx) Social History Tobacco Use Types Packs/Day Years Used Date Smoking Tobacco: Former Cigarettes 2.5 49.1 0 09/25/1962 - 10/19/2011 Smokeless Tobacco: Never Alcohol Use Standard Drinks/Week Comments Yes 1 (1 standard drink = 0.6 oz pur e alcohol) [facility] Utilities Answer Date Recorded In the past [...] How often do you attend pentecostal or oriental orthodox serv ices? Never 10/31/2022 [...] and heating? Not hard at all 10/31/2022 [facility] [place] of Occupat ional Health - Occupational Stress [...] your living situation today? I [facility] a [facility] place to live 03/20/2024 Education Answer Date Recorded What is the highest level of school you have completed or the highest degree you have received? 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 [address] [place] [address] Jorje Cardona M.D. [address] [place] [address] Scheduled Orders Name Type Priority Associated Diagnoses Order Schedule Prior Auth Rad Tx Radiation Oncology Routine Malignant Neoplasm Of Lung Right (HCC) Ordered: 03/20/2024 Management Visit Radiation Oncology Routine Malignant Neoplasm Of Lung Right (HCC) 10 Occurrences starting 03/20/2024 until 06/20/2025 Scheduled Referrals Name Type Priority Associated Diagnoses Orde r Schedule Radiation Oncology office visit (clinic) Outpatient Referral Routine Malignant Neoplasm Of Lung Right (HCC) Expected: 03/20/2024, Expires: 06/20/2025 documented as of this encounter Results * Initial Rad Onc Treatment Planning CT Simulation without IV Contrast (03/24/2024 11:00 AM CDT) Narrative REJI JAIME - 03/24/2024 11:00 AM CDT Melanie Leung, RTT ? 03/24/2024 11:28 AM Initial Rad Onc Treatment Planning CT Simulation without IV Contrast Performed by: Elsie Dewey M.D. Authorized by: Elsie Dewey M.D. ?? us Elsie Dewey M.D. RADIATION ONCOLOGY ORDERA BLES Final Result MENDOZA ARIA na documented in this encounter Visit Diagnoses Diagnosis Malignant Neoplasm Of Lung Right (HCC)- Primary Malignant Neoplasm Of Lung Right (HCC) documented in this encounter
--- OUTSIDE RECORDS SUMMARY | 2024-04-01 15:41 | XMS_ITS | Encounter Summary ---
Author Organization [facility] Address [address] [place] [address] Care Team Providers Care High Heel Builder Name Role Phone Unavailable Primary Care Provider Unavailabl e Reason for Referral * Radiation Therapy (Routine) - Authorized Specialty Diagnoses / Procedures Referred By Contac t Referred To Contact Diagnoses Malignant Neoplasm Of Lung Right (HCC) Procedures Management Visit Elsie Dewey M.D. [address] [place] [address] Phone: tel: fax: [facility] Region Referral ID Status Reason Start Date Expiration Date V isits Requested Visits Authorized [id number] Authorized 03/20/2024 03/20/2025 10 10 Reason for Visit * Radiation Therapy (Routine) - Authorized Specialty Diagnoses / Procedures Referred By Ervin frye Referred To Contact Diagnoses Malignant Neoplasm Of Lung Right (HCC) Procedures Management Visit Elsie Dewey M.D. [address] [place] [address] Phone: tel: fax: [facility] Region Referral ID Status Reason Start Date Expiration Date V isits Requested Visits Authorized [id number] Authorized 03/20/2024 03/20/2025 10 10 Encounter Details Date Type Department Care Team (Latest Contact Info) Description 04/01/2024 1:31 PM CDT Hospital Encounter Department of Radiation Oncology in [place], [place] [address] [place] [phone] Elsie Dewey M.D. [address] [place] [address] Malignant Neoplasm Of Lung Right (HCC) Social History Tobacco Use Types Packs/Day Years Used Date Smoking Tobacco: Former Cigarettes 2.5 49.1 0 09/25/1962 - 10/19/2011 Smokeless Tobacco: Never Alcohol Use Standard Drinks/Week Comments Yes 1 (1 standard drink = 0.6 oz pur e alcohol) [facility] Utilities Answer Date Recorded In the past [...] [facility] of Occupat ional Health - [...] money to buy more. Never true 03/20/20 24 Within the past 12 months, t he [...] your living situation today? I have a [facility] place to live 03/20/2024 Education Answer Date Recorded What is the highest level of school you have completed or the highest degree you have received? 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 Gender Identity Female 04/17/2018 10:15 AM CDT Sexual Orientation Straight 04/17/2018 10 :15 AM CDT documented as of this encounter Last Filed Vital Signs Vital Sign Reading Time Taken Comments Blood Pressure 141/74 04/01/2024 1:37 PM CDT Pulse 81 04/01/2024 1:37 PM CDT Temperature 37 ??C (98.6 ??F) 04/01/2024 1:37 PM CDT Respiratory Rate - - Oxygen Saturation - - Inhaled Oxygen Concentration - - Weight 59.1 kg (130 lb 4.7 oz) 04/01/2024 1:37 P M CDT Height - - Body Mass Index 23.83 09/05/2023 6:11 AM CDT documented in this encounter Plan of Treatment Upcoming Encounters Date Type Department Care Team (Late st Contact Info) Description 04/03/2024 12:30 PM CDT Appointment Department of Radiation Oncology in [place], [place] [address] [place] [phone] Elsie Dewey M.D. [address] [place] [address] Jorje Cardona M.D. [address] [place] [address] Scheduled Orders Name Type Priority Associated Diagnoses Orde r Schedule Management Visit Radiation Oncology Routine Malignant Neoplasm Of Lung Right (HCC) Once for 1 Occurrences starting 04/01/2024 until 04/01/2024 documented as of this encounter Visit Diagnoses Diagnosis Malignant Neoplasm Of Lung Right (HCC) documented in this encounter
--- OUTSIDE RECORDS SUMMARY | 2024-04-01 15:41 | XMS_ITS | Encounter Summary ---
Author Organization [facility] Address [address] [place] [id number] Care Team Providers Care Staff Climate Scientist Name Role Phone Unavailable Primary Care Provider Unavailabl e Reason for Referral * Outpatient (Routine) - Closed Specialty Diagnoses / Procedures Referred By Ervin frye Referred To Contact Radiation Oncology Diagnoses Malignant Neoplasm Of Lung Right (HCC) Elsie Dewey M.D. [address] [place] [phone] Phone: tel: fax: Elsie Dewey M.D. [address] [place] [phone] Phone: tel: fax: Referral ID Status Reason Start Date Expiration Date Visits Re quested Visits Authorized [id number] Closed 03/20/2024 09/19/2025 1 1 Scheduling Instructions Coordinate with SIM Reason for Visit * Outpatient (Routine) - Closed Specialty Diagnoses / Procedures Referred By Ervin frye Referred To Contact Radiation Oncology Diagnoses Malignant Neoplasm Of Lung Right (HCC) Elsie Dewey M.D. [address] [place] [phone] Phone: tel: fax: Elsie Dewey M.D. 200 [place] [address] Phone: tel: fax: Referral ID Status Reason Start Date Expiration Date Visits Re quested Visits Authorized [id number] Closed 03/20/2024 09/19/2025 1 1 Encounter Details Date Type Department Care Team (Latest Contact Info) Description 03/24/2024 10:26 AM CDT - 03/24/2024 10:56 AM CDT Hospital Encounter Department of Radiation Oncology in [place], [place] [address] [place] [address] Elsie Dewey M.D. 200 [place] [phone] Malignant Neoplasm Of Lung Right (HCC) (Primary Dx) Social History Tobacco Use Types Packs/Day Years Used Date Smoking Tobacco: Former Cigarettes 2.5 49.1 0 09/25/1962 - 10/19/2011 Smokeless Tobacco: Never Alcohol Use Standard Drinks/Week Comments Yes 1 (1 standard drink = 0.6 oz pur e alcohol) [facility] Utilities Answer Date Recorded In the past 12 months has e [employer], gas, oil, or water [employer] threatened to shut off services in your [...] How often do you attend yazidi or moravian serv ices? Never 10/31/2022 Do [...] and heating? Not hard at all 10/31/2022 [facility] - [...] your living situation today? I have a [facility] place to live 03/20/2024 Education Answer Date Recorded What is the highest level of school you have completed or the highest degree you have received? 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 Gender Identity Female 04/17/2018 10:15 AM CDT Sexual Orientation Straight 04/17/2018 10 :15 AM CDT documented as of this encounter Last Filed Vital Signs Vital Sign Reading Time Taken Comments Blood Pressure 154/73 03/24/2024 10:28 AM CDT Pulse 70 03/24/2024 10:28 AM CDT Temperature 35.9 ??C (96.7 ??F) 03/24/2024 10:28 AM C DT Respiratory Rate - - Oxygen Saturation - - Inhaled Oxygen Concentration - - Weight 59.9 kg (132 lb 0.9 oz) 03/24/2024 10:28 AM CDT Height - - Body Mass Index 24.15 09/05/2023 6:11 AM CDT documented in this encounter Medications at Time of Discharge albuterol 90 mcg/actuation inhaler INHALE ONE TO TWO PUFFS BY MOUTH EVERY 4 HOURS NEEDED FOR SHORTNESS OF BREATH OR WHEEZING cholecalciferol, vitamin D3, 10 mcg (400 unit) capsule Take 10 mcg by mouth. 09/11/2023 Eliquis 5 mg tablet Take 5 mg by mouth 2 (two) times a day. levothyroxine (SYNTHROID, LEVOTHROID) 75 mcg tablet Take [...] as of this encounter Progress Notes * Albertina Stiles APRN, C.N.P., D.N.P. - 03/24/2024 10:30 AM CDT SUBJECTIVE REQUESTING PROVIDER Elsie Dewey M.D. REASON FOR CONSULT 1. Malignant Neoplasm Of Lung Right (HCC) SUPERVISED BY: Elsie Dewey M.D. HISTORY OF PRESENT ILLNESS Mrs. Anlia Henderson is a 73 y.o. female a history of multifocal lung cancer. She underwent SBRT in March 2015 for a medically inoperable left lower lobe lung cancer, not biopsy proven. 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 She continues on maintenance Durvalumab under the care ofDr. Mitchell. She was found to have a growing right lower lobe lesion on recent CT imaging, confirmedwith PET-CT imaging on March 19, 2024. She returns to undergo CT simulation for radiation treatment purposes. Her oncologic history is as follows: Oncology History Malignant Neoplasm Of Lung Left [...] with the two right lower nodules likely surgical sales representative of low-grade adenocarcinoma. 14. April [...] for malignancy. Consistent with metastatic pulmonary adenocarcinoma. PD-L1 99%, NGS pending. Note: Tumor cells are positive for TTF-1, Napsin A, and CK7, and negative for p40, supporting the above diagnosis. KRAS G12C mutation and PD-L1=99%. 09/06/2023 Critical Imaging Brain MRI IMPRESSION: 1. No acute intracranial abnormality or evidence for intracranial metastatic disease. 2. 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 Small chronic infarctions in the supratentorial and infratentorial parenchyma. 3. Numerous chronic microhemorrhages in the cerebral hemispheres, most typical for sequelae of cerebral amyloid angiopathy. A lesser degree of microhemorrhages in the cerebellum raises the possibility of superimposed hypertensive angiopathy. 4. Moderate chronic microvascular ischemic changes and mild diffuse cerebral volume loss. 09/23/2023 - 11/01/2023 Radiation Therapy Radiation Therapy Treatment Details (09/23/2023 - 11/01/2023) Site: Right Lung Fractions: 30 Technique: IMRT Dose: 6000 cGy Goal: Curative 12/09/[address] Chest impression: 1. Decrease in size of a right upper lobe pulmonary nodule, which now measures 1.3 cm, previously 1.9 cm, and is less solid 2. Part solid right lower lobe pulmonary nodules overall unchanged in size but less solid. Solid portion measures 0.6 cm 3. Additional bilateral pulmonary nodules are stable 12/2023 - Biological/Targeted/Hormone Therapy Maintenance Durvalumab 03/05/[address] Chest Impression Increased size and density of the spiculated nodule within the right lower lobe now measuring 2.3 x1.7 cm, previously measuring 2.3 x 1.5 cm. Similar nodular density in the right suprahilar lung although there is increased surrounding reticular densities in the right upper lung also extending to the medial aspect of the right lower lobe near the right mainstem bronchus. Similar ill-defined ground-glass densities elsewhere. Also similar nodular density in the left lower lobe. Stable mediastinal and bilateral hilar lymph nodes. 03/19/2024 Critical Imaging PET/CT IMPRESSION: 1. Interval increase in size, density and FDG avidity of a right lower lobe pulmonary nodule compatible with local disease progression. 2. Decrease in density of the treated right upper lobe pulmonary nodule with new surrounding post radiation changes. Mild residual FDG avidity is favored to be inflammatory. 3. No FDG avid metastatic disease. 4. Diffuse thyroid radiotracer uptake is favored to be inflammatory in the setting of thyroiditis. 03/30/2024 - Radiation Therapy Radiation Therapy Treatment Details (Noted on 03/20/2024) Site: Right Lung Technique: SBRT Goal: Curative Planned Treatment Start Date: 03/30/2024 INTERVAL HISTORY The patient was seen and examined today with Dr. Dewey. The patient reports feeling well overall today. She denies any significant changes or concerns since our last visit a couple of weeks ago. Her ECOG performance status is 1. REVIEW OF SYSTEMS Review of systems was negative except as documented above. OBJECTIVE BP 154/73 (BP Location: Right arm, Patient Position: Sitting, Cuff Size: Regular) Pulse 70 Temp(!) 35.9 ??C (Temporal) Wt 59.9 kg BMI 24.15 kg/m?? PHYSICAL EXAM General: Alert and oriented in no apparent distress. ASSESSMENT / PLAN #1 Stage IIIA non-small cell lung cancer (adenocarcinoma), cT1c N2 MX, PD- L1=99%, KRAS G12C mutation, s/p definitive radiation and chemotherapy, completed October 2023, now on Durvalumab #2 Medically inoperable left lower lobe cancer, not biopsy proven, treated with SBRT in March 2015 #3 Multiple pulmonary nodules, suspicious for multiple synchronous early lung cancers #4 Medically inoperable right lower lung cancer, cT1c N0 M0, enlarging, PET avid, non-biopsy proven It was a pleasure to meet with Luis Alberto today. I reviewed her most recent PET-CT imaging whichconfirmed the suspicion of growing right lower lobe lesion to be malignant. There was no evidence of other metastatic or recurrent disease. I reviewed the risks, benefits, and alternatives of radiotherapy in this setting. We discussed the recommendation for radiation treatment to the right lower lung in 3 or 5 fractions. I reviewed the logistics as well as the acute and chronic side effects of radiotherapy. For more detailed information, please refer to her note dated March 09, 2024. She will continue with maintenance durvalumab under the care of Dr. Mitchell. Dr. Mitchell discussed likely utilizing durvalumab for a longer period of time than 1 year. We defer to Dr. Mitchell for continued management of this. After discussion, the patient verbally stated that she would like to proceed with treatment. She will undergo CT simulation today. We anticipate starting radiation therapy in the next 1-2 weeks. Patient seen in collaboration with Dr. Dewey, please review her attestation for additional information.The patient was provided with our contact information. She was asked to contact us with questions or concerns. She verbally expressed her understanding of the plan. EDUCATION Ready to learn, no apparent learning barriers were identified; learning preferences include listening. Explained diagnosis and treatment plan; patient expressed understanding of the content. CONSENT Discussed the risks, benefits, alternatives, and the necessity of other members of the healthcare team participating in the procedure. All questions answered and consent given. I personally spent 20 minutes in care of the patient today. Time includes both non face to face andface to face patient care. Signed by: Albertina Stiles APRN, Sylvia.N.PJessica, D.N.P. 03/24/2024 11:39 AM CDT [facility] [address] [place] [address] Cosigned by Elsie Dewey M.D. at 03/24/2024 12:39 PM CDT Associated attestation - Elsie Dewey M.D. - 03/24/2024 12:39 PM CDT RADIATION ONCOLOGY FOLLOW-UP VISIT I saw and evaluated the patient and participated in the eubanks portions of the service. I reviewed thedocumentation of . Albertinadelvis Stiles APRN and agree with the findings and plan. Mrs. Anila Henderson is a 73 y.o. 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 She had enlargement in her right lower lung cancer and underwent a PET/CT and returns now to receive the results. She is accompanied by her today. Please seeMs. Linsey's note for details. The PET/CT shows increased size and avidity in the right lower lung lesion with response in the recent Stage IIIA lung cancer and no evidence of gayle or distant disease. We discussed the findings above and below in this note. We discussed her treatment alternatives including continued observation and.SBRT to the non- biopsy proven lung cancer. We discussed the rationale, risks, side effects and goals of radiation therapy. 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 They understood and their questions were answered. She wished to proceed with treatment. We tentatively plan on delivering 5400 or 5000 cGy in 3 or 5 every other day fractions startingSaturday, March 30, 2024. My thanks to Drs. Mitchell and Dev for the opportunity to participate in this patient's care. EDUCATION Ready to learn, no apparent learning barriers were identified; learning preferences include listening. Explained diagnosis and treatment plan; patient expressed understanding of the content. CONSENT Discussed the risks, benefits, alternatives, and the necessity of other members of the healthcare team participating in the procedure. All questions answered and consent given. DIAGNOSIS #1 Stage IIIA non-small cell lung cancer (adenocarcinoma), cT1c N2 MX, PD- L1=99%, KRAS G12C mutation, s/p definitive radiation and chemotherapy, completed October 2023, now on Durvalumab #2 Medically inoperable left lower lobe cancer, not biopsy proven, treated with SBRT in March 2015 #3 Multiple pulmonary nodules, suspicious for multiple synchronous early lung cancers #4 Medically inoperable right lower lung cancer, cT1c cN0 M0, enlarging, PET avid, non-biopsy proven Signed by: Elsie Dewey M.D., 03/24/2024 documented in this encounter Plan of Treatment Upcoming Encounters Date Type Department Care Team (Late st Contact Info) Description 04/03/2024 12:30 PM CDT Appointment Department of Radiation Oncology in [place], [place] [address] [place] [address] Elsie Dewey M.D. [address] [place] [phone] Jorje Cardona M.D. [address] [place] [phone] Scheduled Referrals Name Type Priority Associated Diagnoses Order Schedule Radiation Oncology office visit (clinic) Outpatient Referral Routine Malignant Neoplasm Of Lung Right (HCC) Once for 1 Occurrences starting 03/24/2024 until 03/24/2024 documented as of this encounter Visit Diagnoses Diagnosis Malignant Neoplasm Of Lung Right (HCC)- Primary documented in this encounter
--- OUTSIDE RECORDS SUMMARY | 2024-04-01 15:41 | XMS_ITS ---
Author Organization [facility] Address [address] [place] [address] Care Team Providers Care Lead Bi Developer Name Role Phone Unavailable Primary Care Provider Unavailabl e Active Problems Problem Noted Date Diagnosed Date Malignant Neoplasm Of Lung Right 08/29/2023 Cancer Staging:Clinical: Unsigned Malignant Neoplasm Of Lung Left 03/03/2015 Current Oncology Plans No current plan information found. Past Plans No past plan information found. Radiation Treatments * Plan Last Treated On Elapsed Days Fractions Treated Prescribed Fraction Dose Prescribed Total Dose [id number] 03/30/2024 0 1 of 3 1,800 cGy 5,400 c Gy [id number] 11/01/2023 39 30 of 30 200 cGy 6,000 cGy Reference Point Last Treated On Elapsed Days Session Dose Total Dose [id number] 03/30/2024 0 1,800 cGy 1,800 cGy [id number] 11/01/2023 39 200 cGy 6,000 cGy Lifetime Dose Tracking * Chemical Lifetime Dose Automatic Entry Manual Entr y Radiation 264.4 mGy 264.4 mGy 0 mGy Fluoro Time 9.29 minutes 9.29 minutes 0 minutes DAP (uGy-m2) 4,088.8 uGy-m2 4,088.8 uGy-m2 0 uGy-m2
--- OUTSIDE RECORDS SUMMARY | 2024-04-01 15:41 | XMS_ITS ---
Author Organization [facility] Address [address] [place] [address] Care Team Providers Care Metallurgical Or Materials Technician Name Role Phone Unavailable Unavailable Unavailable Surgery Details Not on file Complications Check Surgery Details section. Procedure Estimated Blood Loss Check Surgery Details section. Procedure Findings Check Surgery Details section. Procedure Specimens Taken Check Surgery Details section.
--- OUTSIDE RECORDS SUMMARY | 2024-04-01 15:41 | XMS_ITS | Encounter Summary ---
Author Organization [facility] Address [address] [place] [address] Care Team Providers Care Candy Decorator Name Role Phone Unavailable Primary Care Provider Unavailabl e Reason for Referral * Radiation Therapy (Routine) - Closed Specialty Diagnoses / Procedures Referred By Ervin frye Referred To Contact Diagnoses Malignant Neoplasm Of Lung Right (HCC) Procedures Initial Rad Onc Treatment Planning CT Simulation without IV Contrast Elsie Dewey M.D. [address] [place] [address] Phone: tel: fax: [facility] Region Referral ID Status Reason Start Date Expiration Date Visits Re quested Visits Authorized [id number] Closed 03/20/2024 03/20/2025 1 1 Reason for Visit * Radiation Therapy (Routine) - Closed Specialty Diagnoses / Procedures Referred By Ervin frye Referred To Contact Diagnoses Malignant Neoplasm Of Lung Right (HCC) Procedures Initial Rad Onc Treatment Planning CT Simulation without IV Contrast Elsie Dewey M.D. [address] [place] [address] Phone: tel: fax: [facility] Region Referral ID Status Reason Start Date Expiration Date Visits Re quested Visits Authorized [id number] Closed 03/20/2024 03/20/2025 1 1 Encounter Details Date Type Department Care Team (Latest Contact Info) Description 03/24/2024 10:57 AM CDT - 03/25/2024 9:02 AM CDT Hospital Encounter Department of Radiation Oncology in [place], [place] [address] [place] [phone] Elsie Dewey M.D. [address] [place] [address] Malignant Neoplasm Of Lung Right (HCC) Social History Tobacco Use Types Packs/Day Years Used Date Smoking Tobacco: Former Cigarettes 2.5 49.1 0 09/25/1962 - 10/19/2011 Smokeless Tobacco: Never Alcohol Use Standard Drinks/Week Comments Yes 1 (1 standard drink = 0.6 oz pur e alcohol) [facility] Utilities Answer Date Recorded In the past 12 months has e [employer], gas, oil, or water [employer] threatened to shut off services in your [...] How often do you attend mu-ism or muslim serv ices? Never 10/31/2022 Do you belong [...] and heating? Not hard at all 10/31/2022 [facility] - Occupational [...] your living situation today? I have a [facility] place to live 03/20/2024 Education Answer Date Recorded What is the highest level of school you have completed or the highest degree you have received? 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 Gender Identity Female 04/17/2018 10:15 AM CDT [...] DIRECTED 09/17/2022 documented as of this encounter Procedure Notes * Leung, Melanie A, RTT - 03/24/2024 11:00 AM CDTAssociated Order(s): Initial Rad Onc Treatment Planning CT Simulation without IV Contrast Pre-Procedure Diagnose(s): Malignant Neoplasm Of Lung Right [...] scanned:Chest Contrast used for the simulation procedure: None Patient position:head first supine Custom immobilization: Vac-cara Motion management: Breath hold scan Bolus: No CT guidance: Following positioning of the patient, a series of slices was obtained to be utilized in treatment planning. CT images were transferred to the [employer] treatment planning system, after a reference isocenter was determined and marked. Segmentation and treatment planning will take place prior to treatment delivery. Patient set up and imaging was appropriate and completed without incident. Rail Washer use:No Cosigned by Elsie Dewey M.D. at 03/25/2024 9:01 AM CDT Associated attestation - Elsie Dewey M.D. - 03/25/2024 9:01 AM CDT I was present during all critical and eubanks portions of the procedure(s) and immediately [facility] the entire duration. See note for details. documented in this encounter Plan of Treatment Upcoming Encounters Date Type Department Care Team (Late st Contact Info) Description 04/03/2024 12:30 PM CDT Appointment Department of Radiation Oncology in [place], [place] [address] [place] [address] Elsie Dewey M.D. [address] [place] [phone] Jorje Cardona M.D. [address] [place] [phone] documented as of this encounter Procedures Procedure Name Priority Date/Time Associated Diagnosis Comments INITIAL RAD ONC TREATMENT PLANNING CT SIMULATION Routine 03/24/2024 11:00 AM CDT Malignant Neoplasm Of Lung Right (HCC) documented in this encounter Results * Initial Rad Onc Treatment Planning CT Simulation without IV Contrast (03/24/2024 11:00 AM CDT) Narrative REJI SANDOVAL - 03/24/2024 11:00 AM CDT Melanie Leung, RTT ? 03/24/2024 11:28 AM Initial Rad Onc Treatment Planning CT Simulation without IV Contrast Performed by: Elsie Dewey M.D. Authorized by: Elsie Dewey M.D. ?? Elsie Dewey M.D. RADIATION ONCOLOGY ORDERA BLES Final Result REJI SANDOVAL na documented in this encounter Visit Diagnoses Diagnosis Malignant Neoplasm Of Lung Right (HCC) documented in this encounter
--- OUTSIDE RECORDS SUMMARY | 2024-04-01 15:41 | XMS_ITS | Clinical Summary ---
Author Organization [facility] Address [place], [place] [address] Care Team Providers Care Ribbing Machine Operator Name Role Phone Marbella Heart Primary [...] albuterol HFA (PRO-AIR; VENTOLIN; PROVENTIL) 90 mcg/actuation inhalerIndications: Chronic obstructive pulmonary disease, unspecified COPD type (HC) Inhale 1-2 Puffs by mouth every 4 hours if needed for Shortness Of Breath or Wheezing (cough). 1 Each 2 12/27/2022 Active fluticasone fxl-yfvkwppnkomj-ln lanterol (Trelegy Ellipta) 100-62.5-25 mcg inhalerIndications: Chronic obstructive pulmonary disease, unspecified COPD type (HC) Inhale 1 Puff by mouth once daily. 180 Each 3 07/01/2023 Active apixaban (ELIQUIS) 5 mg tabletIndications:C erebrovascular accident (CVA) due to embolism of left middle cerebral artery (HC),Adenocarcinoma of left lung (HC),Anticoagulatio n monitoring, INR range 2-3 Take 1 Tablet (5 mg) by mouth two times daily. 60 Tablet 5 10/07/2023 Active levothyroxine (SYNTHROID) 75 mcg tabletIndications:H ypothyroidism (acquired) TAKE ONE TABLET BY MOUTH EVERY DAY 90 Tablet 02/19/2024 Active sertraline (ZOLOFT) 50 mg tabletIndications:D epression, unspecified depression type TAKE ONE TABLET BY MOUTH EVERY DAY 90 Tablet 02/19/2024 Active simvastatin (ZOCOR) 40 mg tabletIndications:H yperlipidemia, unspecified hyperlipidemia type TAKE ONE TABLET BY MOUTH AT BEDTIME 90 Tablet 03/04/2024 Active simvastatin (ZOCOR) 40 mg tabletIndications:H yperlipidemia, unspecified hyperlipidemia type TAKE ONE TABLET BY MOUTH AT BEDTIME 90 Tablet 2 05/26/2023 4 Discontinued Active Problems Problem Noted Date Diagnosed Date Adenocarcinoma of left lung 07/09/2018 Wears glasses 03/13/2018 Overview (03/13/2018): Follows at [facility]. Hypothyroidism (acquired) 09/09/2017 Hyperlipidemia 08/25/2014 Depression 08/25/2014 COPD (chronic obstructive pulmonary disease) 04/2015 HTN (hypertension) 03/21/2012 Cerebrovascular accident (CV A) due to embolism of left middle cerebral artery 10/04/2011 Resolved Problems Problem Noted Date Diagnosed Date Resolved Date Pneumonia of right middle lo be due to infectious organism 08/15/2015 12/30/2017 Anticoagulation monitoring, INR range 2-3 10/04/2011 10/11/2023 Overview (11/06/2017): Ok for every 6 weeks. See telephone enc dated 08/25/14. Anticoagulation JOSE- 11/06/17 WANTS TO STAY 6 WKS INR NURSE VISITS Verbal messages may be left for anticoagulation result, dosing, and instructions. Nina Mcmanus RN .................... 11/06/2017 2:05 PM Encounters Date Type Department Care Team Description 03/05/2024 Orders Only [facility] Scanner 1 scan: (1-Ord) [place], CT CHEST W CONTRAST, 03/05/2024 02/28/[address] [place] [address] Marbella Heart, DO Refill Request (Simvastatin) 02/16/2024 Refill [facility] [address] [place] [address] Marbella Heart, Refill Request (Levothyroxine, Sertraline) from Last 3 Months Immunizations Name Administration Dates Next Due COVID-19 VACCINE SPIKEVAX (M ODERNA 50MCG/0.5ML) 12YO+ PFS 03/28/2023 COVID-19 vaccine (Pfizer-Bio NTech 30mcg/0.3mL) 12YO+ BIVALENT PF, MDV 04/02/2022 [...] Relation Name Comments Heart Disease Brother 2 MO Cancer-breast Maternal Aunt Diabetes Maternal Grandmother Heart [...] T Respiratory Rate 16 06/20/2023 3:30 PM SKILLED NURSING CASE MANAGER Oxygen Saturation 93% 10/01/2023 12:52 PM CDT Inhaled Oxygen Concentration - - Weight 59.7 kg (131 lb 9.6 oz) 10/01/2023 12:52 PM CDT Height 160 cm (5' 3) 10/01/2023 12:52 PM CDT Body Mass Index 23.31 10/01/2023 12:52 PM CDT Plan of Treatment Upcoming Encounters Date Type Department Care Team (Late st Contact Info) Description 04/10/2024 10:50 AM CDT Office Visit [facility] [address] [place] [address] Marbella Heart DO [address] [place] [address] Health Maintenance Due Date Last Done Comments Tetanus booster 10/16/2022 10/16/2012, 10/16/2012 COVID-19 vaccine series ( season) 2024 03/28/2023, 04/02/2022, 04/20/2021, Additional [...] 10/30/2021, Additional history exists Fecal testing sDNA-FIT (Flint guard) for age 45-75 09/27/2024 09/27/2021 BMI [...] Diagnosis Comments SCAN-CT INTERPRETATION 12:[address] CHEST WO KELLIE 2023 2:09 PM SKILLED NURSING CASE MANAGER Acute left-sided thoracic back pain Adenocarcinoma of left lung (HC) LIPID PANEL W REFLEX MEASURED LDL Routine 03/28/2023 1:16 PM CDT HTN (hypertension) Cerebrovascular accident (CVA) due to embolism of left middle cerebral artery (HC) Other hyperlipidemia XR MAMMO BILAT SCREENING Routine 04/23/2022 10:11 AM SKILLED NURSING CASE MANAGER Encounter for screening mammogram for malignant neoplasm of breast FECAL DNA (AKA COLOGUARD) Routine 09/27/2021 12:00 AM CDT Screening for colon cancer ANTI HCV Routine 03/13/2019 3:42 PM CDT Need for hepatitis C screening test XR DXA BONE DENSITY 2 SITES AXIAL Routine 09/10/2016 2:54 PM CDT Asymptomatic postmenopausal state from Last 3 Months or Most Recently Relevant to Health Maintenance Results * SCAN-CT INTERPRETATION (03/05/2024 12:00 AM CDT) Anatomical Region Laterality Modality Other Scanner OTHER * CT CHEST WO (2023 2:09 PM SKILLED NURSING CASE MANAGER) Anatomical Region Laterality Modality CHEST, THORAX, HEART Computed To mography 06/22/2023 1:16 AM SKILLED NURSING CASE MANAGER Addenda Addendum by Janna Wood MD on 07/17/2023 11:15 AM SKILLED NURSING CASE MANAGER For Patients: ??As a result of the [...] (Electronically Signed) ?? Impressions 06/22/2023 1:16 AM SKILLED NURSING CASE MANAGER 1. No etiology seen to explain left [...] AM (Electronically Signed) Narrative 06/22/2023 1:16 AM SKILLED NURSING CASE MANAGER For Patients: ??As a result of the [...] - 199 mg/dL 03/28/2023 2:56 PM CDT [facility] Comment: Cholesterol, Total Reference Ranges Desirable <200 mg/dL Borderline 200-239 mg/dL High >=240 mg/dL TRIGLYCERIDES 150(H) <150 mg/dL 03/28/2023 2:56 PM CDT [facility] HDL CHOLESTEROL 66 >40 mg/dL 2:56 PM T [facility] NON-HDL CHOLESTEROL 101 <145 mg/dl 03/28/2023 2:56 PM T [facility] CHOL/HDL RATIO 2.53 <4.50 03/28/2023 2:56 PM CDT [facility] LDL CHOLESTEROL 71 <=130 mg/dL 03/28/2023 2:56 PM T [facility] VLDL CHOLESTEROL 30 <=30 mg/dL 03/28/2023 2:56 PM T [facility] PROVIDER ORDERED STATUS RANDOM 03/28/2023 2:56 PM T [facility] Blood BLOOD SPECIMEN / Unknown Venipuncture / Unknown 03/28/2023 1:16 PM CDT 03/28/2023 1:17 PM CDT Marbella Heart DO CHEMISTRY Performing Organization Address City/State/[facility] Co de Phone Number [facility] [address] [place] [address] * XR MAMMO BILAT SCREENING (04/23/2022 10:11 AM SKILLED NURSING CASE MANAGER) Anatomical Region Laterality Modality BREASTS, Breast Left, Breast Right Bilateral Mammography Impressions 04/23/2022 11:55 AM SKILLED NURSING CASE MANAGER ??There is no radiographic evidence for malignancy. ??Recommend annual mammograms. MAMMOGRAM ASSESSMENT: ??ACR 1 Negative PATIENTS: You will also receive a letter with your examination results in an easy to read format. ??If you have questions about your results, please contact your referring provider. Narrative 04/23/2022 11:55 AM SKILLED NURSING CASE MANAGER For Patients: As a result of the Century Cures Act, medical imaging exams and procedure reports are released immediately into your electronic medical record. You may view this report before your referring provider. If you have questions, please contact your health care provider. XR MAMMO BILAT SCREENING [[id number]] CLINICAL HISTORY: ??This is an asymptomatic 71 [...] thanh Non-React thanh 03/13/2019 11:18 PM CDT [facility] Comment:Antibodies to HCV no t detected; does not exclude the possibility of exposure to HCV. Blood BLOOD SPECIMEN / Unknown Venipuncture / Unknown 03/13/2019 3:42 PM CDT 03/13/2019 3:42 PM CDT Marbella Heart DO SEND OUTS [facility] [address] [place] [address], * XR DXA BONE DENSITY 2 SITES AXIAL (09/10/2016 2:54 PM CDT) Anatomical Region Laterality Modality Spine, HIPS, HIPL, HIPR Bone Den sitometry Narrative 09/12/2016 8:48 AM CDT Please see scanned document for results of this study. Marbella BOBA from Last 3 Months or Most Recently Relevant to Health Maintenance Advance Directives Documents on File Type Date Recorded Patient Sewer Tapper Expl anation Healthcare Directive 09/17/2023 024 Healthcare Directive 06/30/2012 2:01 PM AD SHAFFER DIRECTIVE, 06/30/2012 Care Teams Ribbing Machine Operator Relationship Specialty Start Date End Date SlyMarbella DO [address] [facility] [place] [address] PCP - General Internal Medicine 08/25/14
--- OUTSIDE RECORDS SUMMARY | 2024-04-01 15:41 | XMS_ITS | Encounter Summary ---
Author Organization [facility] Address [address] [place] [address] Care Team Providers Care Application Processor Name Role Phone Unavailable Primary Care Provider Unavailabl e Encounter Details Date Type Department Care Team (Late st Contact Info) Description 04/01/2024 Clinical Communication Department of Radiation Oncology in [place], [place] [address] [place] [phone] Elsie Dewey M.D. [address] [place] [phone] Social History Tobacco Use Types Packs/Day Years Used Date Smoking Tobacco: Former Cigarettes 2.5 49.1 0 09/25/1962 - 10/19/2011 Smokeless Tobacco: Never Alcohol Use Standard Drinks/Week Comments Yes 1 (1 standard drink = 0.6 oz pur e alcohol) [facility] Utilities Answer Date Recorded In the [...] How often do you attend hinduism or muslim serv ices? Never 10/31/2022 Do [...] and heating? Not hard at all 10/31/2022 [facility] [place] [facility] Occupat ional Health - Occupational Stress [...] your living situation today? I have a [facility] place to live 03/20/2024 Education Answer Date Recorded What is the highest level of school you have completed or the highest degree you have received? 10th grade 10/24/2020 Comments No Sex and Gender Information Value Date Recorded Sex Assigned at Female 04/17/2018 10:15 AM CDT Legal Sex Female 4:08 PM RECEIVING WEIGHER Gender Identity Female 04/17/2018 10:15 AM CDT Sexual Orientation Straight 04/17/2018 10 :15 AM CDT documented as of this encounter Miscellaneous Notes * Telephone Encounter - Nadya Franco - 04/01/2024 10:12 AM CDT Other Reason for Call Caller: Dario Relationships to patient: Patient's spouse, auth on file Reason for call: Dario called to report that Carrol had an episode last night where she had trouble catching her beath. She used her rescue inhaler three times. She was also chilled. She seems better this morning. He would like Dr. Dewey to know and advise on if Carrol should come in for treatment or not today. documented in this encounter Plan of Treatment Upcoming Encounters Date Type Department Care Team (Late st Contact Info) Description 04/03/2024 12:30 PM CDT Appointment Department of Radiation Oncology in [place], [place] [address] [place] [address] Elsie Dewey M.D. [address] [place] [phone] Jorje Cardona M.D. [address] [place] [phone] documented as of this encounter Visit Diagnoses Not on filedocumented in this encounter
--- OUTSIDE RECORDS SUMMARY | 2024-04-01 15:42 | XMS_ITS | Encounter Summary ---
Author Organization [facility] Address [address] [place] [address] Care Team Providers Care Horticultural Farm Manager Name Role Phone Unavailable Primary Care Provider Unavailabl e Reason for Referral * MRI/CAT/PET Scan (Routine) - Closed Specialty Diagnoses / Procedures Referred By Contfely t Referred To Contact Diagnoses Malignant Neoplasm Of Lung Left (HCC) Malignant Neoplasm Of Lung Right (HCC) Nodules Pulmonary Multiple Lymphadenopathy Mediastinum Procedures PET CT Skull to Thigh FDG Laya Mitchell M.D. [address] [place] [address] Phone: tel: fax: [facility] Region Referral ID Status Reason Start Date Expiration Date Visits Re quested Visits Authorized [id number] Closed 03/11/2024 03/11/2025 1 1 Encounter Details Date Type Department Care Team (Late st Contact Info) Description 03/11/2024 Orders Only Department of Oncology in [place], [place] [address] [place] [phone] Laya Mitchell M.D. [address] [place] [phone] Malignant Neoplasm Of Lung Left (HCC) (Primary Dx); Malignant Neoplasm Of Lung Right (HCC); Nodules Pulmonary Multiple; Lymphadenopathy Mediastinum Social History Tobacco Use Types Packs/Day Years Used Date Smoking Tobacco: Former Cigarettes 2.5 49.1 0 09/25/1962 - 10/19/2011 Smokeless Tobacco: Never Alcohol Use Standard Drinks/Week Comments Yes 1 (1 standard drink = 0.6 oz pur e alcohol) [facility] Utilities Answer Date Recorded In the past 12 months has e [employer], gas, oil, or water [employer] threatened to shut off services in your [...] declined 10/31/2022 How often do you attend scientologist or jehovah's witness serv ices? 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 [address] [place] [phone] Jorje Cardona M.D. [address] [place] [phone] documented as of this encounter Results * PET CT Skull to Thigh FDG [...] RADIOPHARMACEUTICAL/MEDS: Route: intravenous fludeoxyglucose F 18 injection SENIOR CARE (FDG F-18),11.2 millicurie Procedure Note Corey Hlilman M.D. - 03/19/2024 EXAM: PET CT SKULL [...] RADIOPHARMACEUTICAL/MEDS: Route: intravenous fludeoxyglucose F 18 injection SENIOR CARE (FDG F-18),11.2 millicurie IMPRESSION: 1. Interval increase [...] be inflammatory inthe setting of thyroiditis. Laya ENAMORADOG NM PROCEDURES Final Resu lt documented in this encounter Visit Diagnoses Diagnosis Malignant Neoplasm Of Lung Left (HCC)- Primary Malignant Neoplasm Of Lung Right (HCC) Nodules Pulmonary Multiple Lymphadenopathy Mediastinum Malignant Neoplasm Of Lung Left (HCC) Malignant Neoplasm Of Lung Right (HCC) Nodules Pulmonary Multiple Lymphadenopathy Mediastinum documented in this encounter
--- OUTSIDE RECORDS SUMMARY | 2024-04-01 15:42 | XMS_ITS | Encounter Summary ---
Author Organization [facility] Address [address] [place] [id number] Care Team Providers Care Medical Care Manager Name Role Phone Unavailable Primary Care Provider Unavailabl e Reason for Referral * Outpatient (Routine) - Closed Specialty Diagnoses / Procedures Referred By Contac t Referred To Contact Radiation Oncology Elsie Dewey M.D. [address] [place] [address] Phone: tel: [facility] Referral ID Status Reason Start Date Expiration Date Visits Re quested Visits Authorized [id number] Closed 01/01/2024 07/02/2025 1 1 * Outpatient (Routine) - Closed Specialty Diagnoses / Procedures Referred By Ervin frye Referred To Contact Radiation Oncology Elsie Dewey M.D. [address] [place] [address] Phone: tel: fax: [facility] Region Referral ID Status Reason Start Date Expiration Date Visits Re quested Visits Authorized [id number] Closed 12/02/2023 06/02/2025 1 1 Scheduling Instructions YIG soon after December 12, 2023 (CT at [facility] on December 08, Stephen Almaz 27) Reason for Visit * Outpatient (Routine) - Closed Specialty Diagnoses / Procedures Referred By Ervin frye Referred To Contact Radiation Oncology Elsie Dewey M.D. [address] [place] [address] Phone: tel: fax: [facility] Region Referral ID Status Reason Start Date Expiration Date Visits Re quested Visits Authorized [id number] Closed 12/02/2023 06/02/2025 1 1 Encounter Details Date Type Department Care Team (Latest Contact Info) Description 01/01/2024 2:31 PM CDT - 01/01/2024 4:08 PM CDT Hospital Encounter Department of Radiation Oncology in [place], [place] [address] [place] [phone] Elsie Dewey M.D. [address] [place] [address] Malignant Neoplasm Of Lung Right (HCC) (Primary [...] AM CDT Legal Sex Female 4:08 PM HEAD PORTER BAGGAGE Gender Identity Female 04/17/2018 10:15 AM CDT Sexual Orientation Straight 04/17/2018 10 :15 AM CDT documented as of this encounter Last Filed Vital Signs Vital Sign Reading Time Taken Comments Blood Pressure 137/70 01/01/2024 2:54 PM CDT Pulse 89 01/01/2024 2:54 PM CDT Temperature 36.9 ??C (98.5 ??F) 01/01/2024 2:54 PM CD T Respiratory Rate - - Oxygen Saturation - - Inhaled Oxygen Concentration - - Weight 58 kg (127 lb 13.9 oz) 01/01/2024 2:54 PM CDT Height - - Body Mass Index 23.39 09/05/2023 6:11 AM CDT documented in this [...] Progress Notes * Elsie Dewey M.D. - 01/01/2024 3:00 PM CDT RADIATION ONCOLOGY FOLLOW-UP NOTE SUBJECTIVE REFERRAL SOURCE Established patient DIAGNOSIS Stage IIIA NSCLC right upper lung, s/p CIGARETTE MAKER October 2023, now on Durvalumab 2. Multifocal lung cancer, progressing nodules 3. Medically inoperable lung cancer, s/p SBRT 2014 CHIEF COMPLAINT/REASON FOR VISIT Mrs. Anila Henderson is a 73 y.o. 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 Oncology History Malignant Neoplasm Of Lung Left [...] with the two right lower nodules likely service representative of low-grade adenocarcinoma. 14. April 22, [...] stable 12/2023 - Biological/Targeted/Hormone Therapy Maintenance Durvalumab INTERVAL HISTORY: Since I last saw Mrs. Anila Henderson she reports that the cough she developed at the end of radiation has improved. She denies shortness of breath or change in her breathing.She has no fevers or chills and has no hemoptysis. She had some right foot pain that happened 2 days after her Durvalumab infusion, but this resolved. OBJECTIVE BP 137/70 (BP Location: Right arm, Patient Position: Sitting, Cuff Size: Regular) Pulse 89 Temp36.9 ??C (Temporal) Wt 58 kg BMI 23.39 kg/m?? General: Mrs. Anila Henderson is a well-developed, well-nourished woman. she is seated in the examination room in no acute distress. ECO - asymptomatic. Cardiovascular: Heart rhythm with regular rate. Lungs: Lung keenan are clear to auscultation throughout. No adventitious lung sounds. DIAGNOSTICS I have reviewed the available imaging, [...] suspicious for multiple synchronous early lung cancers Mrs. Henderson is doing well. I reviewed her imaging with her and her . I think she has hada nice response to the treatment. I will see her again in 2 months (which will be three months fromher last scan). I will order a CT chest to be done at [facility]. We discussed signs and symptoms of radiation pneumonitis. Mrs. Anila Henderson knows to contact us at any point should any questions or concerns arise. EDUCATION: Ready to learn, no apparent learning barriers were identified; learning preferences include listening. Explained diagnosis and treatment plan; patient expressed understanding of the content. I personally spent 15 minutes in care of the patient today. Time includes both non face to face andface to face patient care. Signed by: Elsie Dewey M.D. 01/01/2024 4:08 PM CDT Radiation Oncology [facility] [address] [place], [place] [phone] documented in this encounter Plan of Treatment Upcoming Encounters Date Type Department Care Team (Late st Contact Info) Description 04/03/2024 12:30 PM CDT Appointment Department of Radiation Oncology in [place], [place] [address] [place] [address] Elsie Dewey M.D. [address] [place] [phone] Jorje Cardona M.D. [address] [place] [address] Scheduled Referrals Name Type Priority Associated Diagnoses Order Schedule Radiation Oncology office visit (clinic) Outpatient Referral Routine Once for 1 Occurrences starting 01/01/2024 until 01/01/2024 Radiation Oncology office visit (clinic) Outpatient Referral Routine Expected: (Approximate), Expires: 12/31/2024 documented as of this encounter Visit Diagnoses Diagnosis Malignant Neoplasm Of Lung Right (HCC)- Primary documented in this encounter
--- OUTSIDE RECORDS SUMMARY | 2024-04-01 15:42 | XMS_ITS | Encounter Summary ---
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 [address] [place] [address] Phone: tel: [facility]: [facility] Region Referral ID Status Reason Start Date Expiration Date Visits Re quested Visits Authorized [id number] Closed 01/01/2024 07/02/2025 1 1 Reason for Visit * Outpatient (Routine) - Closed Specialty Diagnoses / Procedures Referred By Ervin frye Referred To Contact Radiation Oncology Elsie Dewey M.D. [address] [place] [address] Phone: tel: fax: [facility] Region Referral ID Status Reason Start Date Expiration Date Visits Re quested Visits Authorized [id number] Closed 01/01/2024 07/02/2025 1 1 Encounter Details Date Type Department Care Team (Latest Contact Info) Description 03/09/2024 2:34 PM CDT - 03/09/2024 4:32 PM CDT Hospital Encounter Department of Radiation Oncology in [place], [place] [address] [place] [phone] Elsie Dewey M.D. [address] [place] [address] Malignant Neoplasm Of Lung Left (HCC) (Primary [...] declined 10/31/2022 How often do you attend jew or hinduism serv ices? Never 10/31/2022 Do you belong to any clubs o r organizations such as jew groups, unions, fraternal or athletic groups, or [...] and heating? Not hard at all 10/31/2022 [facility] Occupat ional Health - Occupational Stress [...] AM CDT Legal Sex Female 4:08 PM [employer] Gender Identity Female 04/17/2018 10:15 AM CDT Sexual Orientation Straight 04/17/2018 10 :15 AM CDT documented as of this encounter Last Filed Vital Signs Vital Sign Reading Time Taken Comments Blood Pressure 151/74 03/09/2024 2:50 PM CDT Pulse 78 03/09/2024 2:50 PM CDT Temperature 36.8 ??C (98.2 ??F) 03/09/2024 2:50 PM CD T Respiratory Rate - - Oxygen Saturation - - Inhaled Oxygen Concentration - - Weight 59.9 kg (132 lb 0.9 oz) 03/09/2024 2:50 P M CDT Height - - Body [...] * Albertina Stiles APRN, C.N.P., D.N.P. - 03/09/2024 3:00 PM CDT SUBJECTIVE DIAGNOSIS 1. Malignant Neoplasm Of Lung Left (HCC) 2. Malignant Neoplasm Of Lung Right (HCC) SUPERVISED BY: Elsie Dewey M.D. HISTORY OF PRESENT ILLNESS Mrs. Anila Henderson is a 73 y.o. female with a history of multifocal lung cancer. She underwent SBRT in March 2015 for a medically inoperable left lower lobe lung cancer, not biopsy proven. 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 She continues on maintenance Durvalumab under the care of Dr. Mitchell. She returns for routine follow up. Her oncologic history is as follows: Oncology [...] with the two right lower nodules likely media sales representative of low-grade adenocarcinoma. 14. April [...] Stable mediastinal and bilateral hilar lymph nodes. INTERVAL HISTORY The patient was seen and examined today with Dr. Dewey. The patient reports doing well overall. She reports stable moderate fatigue but remains active going to the gym 3 days a week. She has noticed a slight increase in her shortness of breath with activity since her last radiation treatment. Her inhalers were changed and she has noticed improvement with that. She reports continued cough in which she struggles to cough anything up since her stroke. She denies hemoptysis. She denies any fevers, chest pain, pressure, or tightness, unanticipated weightloss, or any other new concerns at this time. Her ECOG performance status is 1. REVIEW OF SYSTEMS Review of systems was negative except as documented above. OBJECTIVE BP 151/74 (BP Location: Right arm, Patient Position: Sitting, Cuff Size: Regular) Pulse 78 Temp36.8 ??C (Temporal) Wt 59.9 kg BMI 24.15 kg/m?? PHYSICAL EXAM General: Patient is alert and oriented in no apparent distress. Neck: Supple. Lymph: No palpable cervical, supraclavicular, infraclavicular, or axillary adenopathy. Lungs: Clear to auscultation bilaterally. Heart: Regular rate and rhythm. Normal S1 and S2. ASSESSMENT / PLAN #1 Stage IIIA non-small cell lung cancer (adenocarcinoma), cT1c N2 MX, PD- L1=99%, KRAS G12C mutation, s/p definitive radiation and chemotherapy, completed October 2023, now on Durvalumab #2 Medically inoperable left lower lobe cancer, not biopsy proven, treated with SBRT in March 2015 #3 Multiple pulmonary nodules, suspicious for multiple synchronous early lung cancers #4 Growing right lower lung lesion February 2024 amendable to SBRT It was a pleasure to meet with Carrol today. She is doing well following radiation treatment in October.She is experiencing some slight changes to her breathing and cough but nothing significant or debilitating. She recently completed a CT chest which demonstrated increased size and density of a right lower lung lesion. Her remaining chest imaging is stable overall. Those results were reviewed with her today. We discussed the role of SBRT to the growing right lower lung nodule. We had a detailed discussion regarding the risks, benefits, and alternatives of radiotherapy in this setting. I reviewed the logistics as well as the acute and chronic side effects of radiotherapy. The acute side effects may include, but are not limited to, fatigue, shortness of breath, skin irritation, and cough. A delayed side effect could include radiation pneumonitis or chest wall pain. Long-term side effects can be rare and may include, but not limited to, broken rib, hemorrhage of a blood vessel that could be fatal, spinal cord damage, chronic shortness of breath or bronchial collapse, chronic chest wall pain, or secondary malignancy. Her questions were answered to his verbalized satisfaction. She has a follow up with Dr. Mitchell later this week. The patient will discuss obtaining a PET/CT with Dr. Mitchell. If this is obtained we will wait for those results and images before proceeding. If radiation is pursued we will work with Dr. Mitchell about timing of radiation treatment and maintenancedurvalumab. We defer to Dr. Mitchell for any changes regarding her systemic therapy. Patient seen in collaboration with Dr. Dewey, please review her attestation for additional information. The patient was asked to contact us with questions or concerns. She verbally expressed her understanding of the plan. EDUCATION Ready to learn, no apparent learning barriers were identified; learning preferences include listening. Explained diagnosis and treatment plan; patient expressed understanding of the content. I personally spent 25 minutes in care of the patient today. Time includes both non face to face andface to face patient care. Signed by: Albertina Stiles APRN, Sylvia.N.PJessica, D.N.PJessica 03/09/2024 3:26 PM CDT [facility] [address] [place] [address] Cosigned by Elsie Dewey M.D. at 03/09/2024 4:31 PM CDT Associated attestation - Elsie Dewey M.D. - 03/09/2024 4:31 PM CDT I saw and evaluated the patient and participated in the eubanks portions of the service as noted below.Ms. Albertina Stiles APRN note for additional details. I am concerned about the right lower lung cancer that is enlarging and solid. I would favor obtaining a PET/CT to stage her mediastinum and then consider SBRT in between cycles of her Durvalumab if the patient wants to consider treatment. She will talk with Dr. Mitchell and Saturday. I would kindly ask that they order the scan if she decides to proceed as I am away this coming Saturday through the following Saturday. I would see her back to consider SBRT if this is the only site of disease. Their questions were answered; they were comfortable with this plan. Elsie Dewey M.D., 03/09/2024 documented in this encounter Plan of Treatment Upcoming Encounters Date Type Department Care Team (Late st Contact Info) Description 04/03/2024 12:30 PM CDT Appointment Department of Radiation Oncology in [place], [place] [address] [place] [address] Elsie Dewey M.D. [address] [place] [phone] Jorje Cardona M.D. [address] [place] [phone] Scheduled Referrals Name Type Priority Associated Diagnoses Order Schedule Radiation Oncology office visit (clinic) Outpatient Referral Routine Once for 1 Occurrences starting 03/09/2024 until 03/09/2024 documented as of this encounter Visit Diagnoses Diagnosis Malignant Neoplasm Of Lung Left (HCC)- Primary Malignant Neoplasm Of Lung Right (HCC) documented in this encounter
--- OUTSIDE RECORDS SUMMARY | 2024-04-01 15:42 | XMS_ITS | Encounter Summary ---
Author Organization [facility] Address [address] [place] [address] Care Team Providers Care Concrete Crusher Loader Operator Name Role Phone Unavailable Primary Care Provider Unavailabl e Reason for Referral * MRI/CAT/PET Scan (Routine) - Closed Specialty Diagnoses / Procedures Referred By Ervin frye Referred To Contact Diagnoses Malignant Neoplasm Of Lung Left (HCC) Malignant Neoplasm Of Lung Right (HCC) Nodules Pulmonary Multiple Lymphadenopathy Mediastinum Procedures PET CT Skull to Thigh FDG Laya Mitchell M.D. [address] [place] [address] Phone: tel: fax: [facility] Region Referral ID Status Reason Start Date Expiration Date Visits Re quested Visits Authorized [id number] Closed 03/11/2024 03/11/2025 1 1 Reason for Visit * MRI/CAT/PET Scan (Routine) - Closed Specialty Diagnoses / Procedures Referred By Ervin frye Referred To Contact Diagnoses Malignant Neoplasm Of Lung Left (HCC) Malignant Neoplasm Of Lung Right (HCC) Nodules Pulmonary Multiple Lymphadenopathy Mediastinum Procedures PET CT Skull to Thigh FDG Laya Mitchell M.D. [address] [place] [address] Phone: tel: fax: [facility] Region Referral ID Status Reason Start Date Expiration Date Visits Re quested Visits Authorized [id number] Closed 03/11/2024 03/11/2025 1 1 Encounter Details Date Type Department Care Team (Latest Contact Info) Description 03/19/2024 10:39 AM CDT - 03/19/2024 11:59 PM CDT Hospital Encounter Department of Radiology in [place], [place] [address] [place] [address] Laya Mitchell M.D. [address] [place] [phone] Malignant Neoplasm Of Lung Left (HCC); Malignant Neoplasm Of Lung Right (HCC); Nodules Pulmonary Multiple; Lymphadenopathy Mediastinum Discharge Disposition: Home or Self Care Social History Tobacco Use Types Packs/Day Years Used Date Smoking Tobacco: Former Cigarettes 2.5 49.1 0 09/25/1962 - 10/19/2011 Smokeless Tobacco: Never Alcohol Use Standard Drinks/Week Comments Yes 1 (1 standard drink = 0.6 oz pur e alcohol) [facility] Utilities Answer Date Recorded In the past 12 months has e [employer], gas, oil, or water [place] threatened to shut off services in your [...] declined 10/31/2022 How often do you attend hindu or methodist serv ices? Never 10/31/2022 Do you belong to any clubs o r organizations such as hindu groups, unions, fraternal or athletic groups, or [...] all 10/31/2022 [facility]at ional [facility] [...] your living situation today? I have a [facility] place to live 03/20/2024 Education Answer Date Recorded What is the highest level of school you have completed or the highest degree you have received? 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 05/28/2022 [place] Ellipta 100-62.5-25 mcg inhaler Inhale 1 puff daily. warfarin (COUMADIN) 2 mg tablet TAKE 1.5 TABLETS BY MOUTH EVERY E AND SAT; TAKE TWO TABLETS ALL OTHER DAYS OR DIRECTED 09/17/2022 documented as of this encounter Plan of Treatment Upcoming Encounters Date Type Department Care Team (Late st Contact Info) Description 04/03/2024 12:30 PM CDT Appointment Department of Radiation Oncology in [place], [place] [address] [place] [phone] Elsie Dewey M.D. [address] [place] [phone] Jorje Cardona M.D. [address] [place] [phone] documented as of this encounter Procedures Procedure Name Priority Date/Time Associated Diagnosis Comments PET CT SKULL TO THIGH RAD - Routine (most inpatients and all outpatients) 03/19/2024 12:17 PM CDT Malignant Neoplasm Of Lung Left (HCC) Malignant Neoplasm Of Lung Right (HCC) Nodules Pulmonary Multiple Lymphadenopathy Mediastinum documented in this encounter Results * PET CT Skull [...] CARE (FDG F-18),11.2 millicurie Procedure Note Corey Hillman [...] inthe setting of thyroiditis. Laya Mitchell M.D. IM NM PROCEDURES Final Resu lt documented in this encounter Visit Diagnoses Diagnosis Malignant Neoplasm Of Lung Left (HCC) Malignant Neoplasm Of Lung Right (HCC) Nodules Pulmonary Multiple Lymphadenopathy Mediastinum documented in this encounter Administered Medications Inactive Administered Medications - up to 3 most recent administrations Medication Order MAR Action Action Date Dose Rate Site fludeoxyglucose F 18 injection SENIOR CARE (FDG F-18) 11.2 millicurie, intravenous, Once, On Natali 03/19/24 at 1115, For 1 dose, Imaging Protocol Orders Given 03/19/2024 10:55 AM CDT 11.2 millicuries Right Antecubital documented in this encounter
[2024-04-01 15:45] VITALS: PULSE 78; RESP 16; O2SAT 95
[2024-04-01] MEDS: predniSONE 10 MG TABLET 50 MG PO (16:00)
[2024-04-01] MEDS: DOXYCYCLINE HYCLATE 100 MG PO (16:00)
[2024-04-01 16:05] VITALS: BP 157/90; PULSE 75; RESP 16; TEMP 37.3
== END 2024-04-01 16:05 | disposition home or self-care (01) ==
PROVIDERS: Emergency Provider Family Medicine; PCP Internal Medicine
DX: R07.9 Chest pain, unspecified (principal); J44.9 Chronic obstructive pulmonary disease, unspecified; C34.91 Malignant neoplasm of unspecified part of right bronchus or lung
CPT/HCPCS: 36415; 71275; 80048; 80076; 82565; 83605; 83880; 84484; 85025; 85610; 86140; 87631; 93005; 94761; 99284; 99285; A9270; J7512; Q9967

== ENCOUNTER 2024-05-06 15:43 | Observation (INO) | payer MEDICARE, BC, SELFPAY ==
[2024-05-06] VITALS (20 sets, daily range): BP systolic 125–174; BP diastolic 75–103; PULSE 72–103; RESP 15–24; TEMP 36.7–37.6; O2SAT 90–97; BMI 23.8; BMI 24.1
--- NOTE | 2024-05-06 16:02 | ED.GENADULT ---
HPI - General Adult General Time Seen by Provider: 15:50 Date Seen: 05/06/24 Chief complaint: Unspecified Complaint, Adult Stated complaint: Hcg low Time Seen by Provider: 05/06/24 15:50 Source: patient, family and RN notes reviewed Mode of arrival: ambulatory Limitations: no limitations History of Present Illness HPI narrative: this very pleasant 73-year-old female is ambulatory into the ER after referral from [facility]. She was found to have a low hemoglobin of 8.2 yesterday in preparation for her maintenance chemotherapy. On follow-up today it was 7.8. On April 06 it was 12.4. Patient has had a history of a GI bleed maybe tender 11 years ago, was evaluated at [place]. She was on aspirin and Coumadin at the time for history of a stroke. They note that she had colonoscopy, possibly EGD. Did do capsule endoscopy and did not find a source. She was switched to Eliquis and has been fine. She recently went off iron in a multivitamin. They were trying to find a smaller multivitamin that she had an easier time swallowing. The current 1 did not have iron. She had a negative fecal occult blood test at [facility] today. She notes sometimes stools are maybe darker but she has noticed no true melena, no rectal bleeding. She has had no abdominal pain, is noted no vomiting. She has multifocal adenocarcinoma of the lung and is on maintenance durvalumab immunotherapy. It is not felt that this would be the cause anemia. Jennifer did discuss this with Dr. Mitchell and new she would do abdominal CT if she were here tomorrow but she will not be. patient is not having any abdominal pain, no known GI bleeding. She has some baseline shortness of breath but has underlying COPD, is not worse. No chest pain. She really cannot give me any source of bleeding. Patient did have full CBC and comprehensive metabolic panel yesterday, will not be repeated, these were reviewed. Related Data Home Medications ?Medication ?Instructions ?Recorded ?Confirmed albuterol sulfate 90 mcg/actuation 1 - 2 puff inhalation Q4H PRN 09/11/23 05/07/24 aerosol inhaler wheezing fluticasone fur. 100 mcg-umeclid 1 ea inhalation DAILY 09/11/23 05/07/24 62.5 mcg-vilant 25 mcg inhalat.powder (Trelegy Ellipta) levothyroxine 75 mcg tablet 75 mcg PO DAILY 09/11/23 05/07/24 sertraline 50 mg tablet 50 mg PO DAILY 09/11/23 05/07/24 simvastatin 40 mg tablet 40 mg PO HS 09/11/23 05/07/24 apixaban 5 mg tablet (Eliquis) 5 mg PO BID 10/29/23 05/07/24 multivitamin with iron 1 tab PO QDAY 12/12/23 05/07/24 Allergies Allergy/AdvReac Type Severity Reaction Status Date / Time aspirin Allergy Intermediate Unknown Verified 05/06/24 16:55 atenolol Allergy Intermediate psoriasis Verified 05/06/24 16:55 Penicillins Allergy Unknown Verified 05/06/24 16:55 Review of Systems Status of ROS: Reports: 6 or more systems reviewed and unremarkable except as noted in History and below [facility], [facility] Medical History Hx pulmonary embolism ?Z86.711 - Personal history of pulmonary embolism (ICD-10) History of endocarditis in adulthood ?Z86.79 - Personal history of other diseases of the circulatory system (ICD-10) Health care directive on file ?Z78.9 - Other specified health status (ICD-10) Vegetative endocarditis of mitral valve ?I33.0 - Acute and subacute infective endocarditis (ICD-10) Surgical History Hx of tubal ligation ?Z98.51 - Tubal ligation status (ICD-10) Social History Narrative: Social history is negative for smoking. She quit smoking in 2011 at the time she had her stroke. Prior to that she smoked at least for 50 years. Occasional alcohol intake. 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 What is your current living situation?: I presently have a place to live Problems where you live: no known problems Problems where you live details: N/A In the past 12 months, utilities in danger of being shut off: no In the past 12 mos, have been you worried that your food would run out before you had money to buy more?: never true In the past 12 mos, the food you bought just didn't last and you didn't have money to buy more?: never true Highest level of school completed/degree received: high school graduate Smoking Status: Former smoker Do you use any of these nicotine containing products: None How often do you have a drink containing alcohol: monthly or less How many standard drinks containing alcohol do you have on a typical day: 1 or 2 How often do you have six or more drinks on one occasion: Never AUDIT-C Alcohol total score: 1 Non-prescribed substance use: denies use Caffeine: Yes (coffee) How often does anyone, including family, friends and others, physically hurt you: never How often does anyone, including family, friends and others, insult or talk down to you: never How often does anyone, including family, friends and others, threaten you with harm: never How often does anyone, including family, friends and others, scream or curse at you: never service: No Exam Const: Vital Signs, click to edit/add: Vital Signs - 24 hr 05/06/24 15:55 05/06/24 16:03 05/06/24 16:15 Temperature 98.7 F Pulse Rate 73 75 Pulse Rate [Pulse Oximeter] 74 Respiratory Rate 20 Blood Pressure Blood Pressure [Ri ght Upper Arm] 174/91 H Pulse Oximetry 90 95 97 Oxygen Delivery Me thod Room Air Room Air 05/06/24 16:29 05/06/24 16:30 05/06/24 16:32 Temperature Pulse Rate 74 73 72 Pulse Rate [Pulse Oximeter] Respiratory Rate Blood Pressure 156/94 H 161/82 H Blood Pressure [Ri ght Upper Arm] Pulse Oximetry 91 93 94 Oxygen Delivery Me thod Room Air Room Air Room Air 05/06/24 16:53 05/06/24 17:02 05/06/24 17:32 Temperature Pulse Rate 88 Pulse Rate [Pulse Oximeter] Respiratory Rate Blood Pressure 145/103 H 154/87 H Blood Pressure [Ri ght Upper Arm] Pulse Oximetry 94 Oxygen Delivery Me thod Room Air This 73-year-old female who is very well kept, very pleasant, alert, interactive, no apparent distress. Sclera clear. Symmetrical facial function. Skin visualized without any bruising. Lungs with somewhat diminished breath sounds but no wheezing crackles, no tachypnea. CV regular rate and rhythm, do not hear any significant murmur, normal S1-S2, S3-S4. Abdomen is soft, nontender, nondistended, no organomegaly or masses noted. She has no pretibial lower extremity edema. Documenting provider has reviewed patient's vital signs: yes Course Course ED Course: Have briefly reviewed with the hospitalist Dr. Martin. She wants the CT abdomen GI bleeding protocol, will order this. Did ask her she wanted other blood work, she decline. Will have this patient get typed and screened for 2 units packed red blood cells transfusion. Patient is consented on transfusion and proceeds to agree. Vital Signs Vital signs: Initial Vital Signs Temperature 98.7 F 05/06/24 15:55 Temperature Source Temporal Artery Scan 05/06/24 15:55 Pulse Rate 74 05/06/24 15:55 Respiratory Rate 20 05/06/24 15:55 Blood Pressure 174/91 H 05/06/24 15:55 Blood Pressure Mean 118 H 05/06/24 15:55 Pulse Oximetry 90 05/06/24 15:55 Oxygen Delivery Method Room Air 05/06/24 15:55 Vital Signs Temperature 98.7 F 05/06/24 15:55 Pulse Rate 74 05/06/24 15:55 Respiratory Rate 20 05/06/24 15:55 Blood Pressure 174/91 H 05/06/24 15:55 Pulse Oximetry 90 05/06/24 15:55 Oxygen Delivery Method Room Air 05/06/24 15:55 Temperature 97.6 F 05/07/24 03:00 Pulse Rate 77 05/07/24 07:00 Respiratory Rate 20 05/07/24 03:00 Blood Pressure 147/84 H 05/07/24 03:00 Pulse Oximetry 91 05/07/24 03:00 Oxygen Delivery Method Room Air 05/07/24 03:00 Medications Administered Medications: Generic Name Dose Route Start Last Admin Trade Name Freq PRN Reason Stop Dose Admin Levothyroxine Sodium 75 mcg 05/07/24 06:00 05/07/24 05:51 Levothyroxine 75 Mcg Tablet PO 75 mcg DAILY@0600 GUALBERTO Administration Sodium Chloride 250 ml 05/06/24 16:13 05/06/24 20:26 0.9 % Sodium Chloride 500 Ml IV 05/07/24 23:59 250 ml ONCE PRN Administration Sodium Chloride 5 ml 05/06/24 21:00 05/06/24 21:18 Sodium Chloride 0.9 % (Flush) 10 Ml Syringe IVF Not Given BID GUALBERTO Discontinued Medications Generic Name Dose Route Start Last Admin Trade Name Freq PRN Reason Stop Dose Admin Ondansetron HCl 4 mg 05/06/24 20:41 05/06/24 21:17 Ondansetron Odt 4 Mg Tab PO Not Given Q8H GUALBERTO Sodium Chloride 5 ml 05/06/24 20:02 05/06/24 20:27 Sodium Chloride 0.9 % (Flush) 10 Ml Syringe IVF 5 ml .FLUSH PRN Administration Medical Decision Making Lab Data Lab results reviewed: Yes I reviewed the patient's lab results Labs: Lab Results 05/06/24 Range/Units 13:05 Blood Type AB Positive Antibody Screen NEGATIVE Crossmatch (AHG) See Detail Imaging Data CT scan - abdomen: Attestation: I have reviewed the pertinent imaging results. Radiologist's impression: Patient: OLU ROMERO Facility:?[facility] Patient ID:?[id number] Site Patient ID:?[id number]. Site :?[id number] Study:?CT-Abdomen/Pelvis Angio GI BLEED W/ 95CC ISOVUE 370-05/06/2024 4:58:42 PM Ordering Physician:Penny Oro Final Report: INDICATION: LOW HGB, NO SOURCE BLEEDING, GI BLEED PROTOCOL. TECHNIQUE: CT abdomen and pelvis acquired without and with 100 cc Omnipaque 350 IV contrast. COMPARISON: CTA chest dated 04/01/2024. FINDINGS: GI tract is within normal limits in caliber. Colonic diverticulosis. There is no evidence of bowel obstruction, mass, or inflammation. The liver is normal in size, shape and attenuation. Unremarkable gallbladder. No biliary dilatation. Unremarkable spleen and adrenal glands. Scattered pancreatic calcifications, likely reflecting sequela of chronic pancreatitis. Left renal cysts and other bilateral renal subcentimeter cortical hypodensities, too small to characterize. 7.5 cm cystic focus along the posterior aspect of the uterus and left adnexa. No lymphadenopathy evident. No free air or significant free fluid. No definitively visualized suspicious focal bone lesions. Diffuse osseous demineralization. Multiple new right lung base nodules which has a relatively bilobar appearance and measures to 1.0 cm (/). Partially redemonstrated previously visualized spiculated right lower lobe nodule. IMPRESSION: 1. No evidence of active hemorrhage in the abdomen or pelvis. 2. Multiple new pulmonary nodules measuring up to 1.0 cm in the partially visualized right lung base, concerning for worsening malignancy. This can be further evaluated with a dedicated CT chest. 3. There is 7.5 cm cystic focus along the posterior aspect of the uterus and left adnexa. This is incompletely evaluated on this examination, and could be further characterized with a nonemergent pelvic MRI without and with contrast. Please note that all CT scans at this facility use dose modulation, iterative reconstruction, and/or weight-based dosing when appropriate to reduce radiation dose to as low as reasonably achievable. Dictated by Camron Holley MD @ 05/06/2024 5:53:28 PM (Electronic Signature) Discharge Plan Discharge Clinical Impression: Adenocarcinoma of lung Anemia Qualifiers: Anemia type: unspecified type Qualified Code(s): D64.9 - Anemia, unspecified
--- NOTE | 2024-05-06 16:13 | CT_ITS ---
Patient: OLU ROMERO Facility:?[facility] Patient ID:?[id number] Site Patient ID:?[id number]. Site :?1950 Study:?CT-Abdomen/Pelvis Angio GI BLEED W/ 95CC ISOVUE 370-05/06/2024 4:58:42 PM Ordering Physician:?Kelly Oro Final Report: INDICATION: LOW HGB, NO SOURCE BLEEDING, GI BLEED PROTOCOL. TECHNIQUE: CT abdomen and pelvis acquired without and with 100 cc Omnipaque 350 IV contrast. COMPARISON: CTA chest dated 04/01/2024. FINDINGS: GI tract is within normal limits in caliber. Colonic diverticulosis. There is no evidence of bowel obstruction, mass, or inflammation. The liver is normal in size, shape and attenuation. Unremarkable gallbladder. No biliary dilatation. Unremarkable spleen and adrenal glands. Scattered pancreatic calcifications, likely reflecting sequela of chronic pancreatitis. Left renal cysts and other bilateral renal subcentimeter cortical hypodensities, too small to characterize. 7.5 cm cystic focus along the posterior aspect of the uterus and left adnexa. No lymphadenopathy evident. No free air or significant free fluid. No definitively visualized suspicious focal bone lesions. Diffuse osseous demineralization. Multiple new right lung base nodules which has a relatively bilobar appearance and measures to 1.0 cm (). Partially redemonstrated previously visualized spiculated right lower lobe nodule. IMPRESSION: 1. No evidence of active hemorrhage in the abdomen or pelvis. 2. Multiple new pulmonary nodules measuring up to 1.0 cm in the partially visualized right lung base, concerning for worsening malignancy. This can be further evaluated with a dedicated CT chest. 3. There is 7.5 cm cystic focus along the posterior aspect of the uterus and left adnexa. This is incompletely evaluated on this examination, and could be further characterized with a nonemergent pelvic MRI without and with contrast. Please note that all CT scans at this facility use dose modulation, iterative reconstruction, and/or weight-based dosing when appropriate to reduce radiation dose to as low as reasonably achievable. Dictated by Camron Holley MD @ 05/06/2024 5:53:28 PM Signed by:?Camron Holley MD @05/06/2024 5:53:28 PM (Electronic Signature)
--- OUTSIDE RECORDS SUMMARY | 2024-05-06 17:10 | XMS_ITS | Clinical Summary ---
Author Organization [facility] Address [address] [place] [address] Care Team Providers Care Loading And Unloading Supervisor Name Role Phone Unavailable Primary Care Provider Unavailabl e Source Comments Patient records contain information from all sites at [facility]. For routine questions regarding patient records, call [phone] during business hours, M-F 8:00 AM - 5:00 PM Central Time. Record requests for emergency care only can be directed to [phone] at any time.[facility] Allergies Active Allergy Reactions Criticality Noted Date [...] Encounters Date Type Department Care Team Description 04/06/2024 Orders Only Department of Oncology in [place] [address] [place] [address] Laya Mitchell M.D. Malignant Neoplasm Of Lung Left (HCC) (Primary Dx) 04/03/2024 12:06 PM CDT - 04/03/2024 11:59 PM CDT Hospital Encounter Department of Radiation Oncology in [address] [address] Elsie Dewey M.D. Discharge Disposition: Home or Self Care 04/03/2024 Documentation Department of Radiation Oncology in [address] [address] Elsie Dewey M.D. 04/01/2024 2:15 PM CDT - 04/01/2024 11:59 PM CDT Hospital Encounter Department of Radiation Oncology in [address] [address] Elsie Dewey M.D. Discharge Disposition: Home or Self Care 04/01/2024 1:31 PM CDT - 04/02/2024 12:19 PM CDT Hospital Encounter Department of Radiation Oncology in [address] [address] Elsie Dewey M.D. Malignant Neoplasm Of Lung Right (HCC) 04/01/2024 Clinical Communication Department of Radiation Oncology in [address] [address] Elsie Dewey M.D. 03/30/2024 1:49 PM CDT - 03/30/2024 11:59 PM CDT Hospital Encounter Department of Radiation Oncology in [address] [address] Elsie Dewey M.D. Discharge Disposition: Home or Self Care 03/24/2024 10:57 AM CDT - 03/25/2024 9:02 AM CDT Hospital Encounter Department of Radiation Oncology in [address] [address] Elsie Dewey M.D. Malignant Neoplasm Of Lung Right (HCC) 03/24/2024 10:26 AM CDT - 03/24/2024 10:56 AM CDT Hospital Encounter Department of Radiation Oncology in [address] [address] Elsie Dewey M.D. Malignant Neoplasm Of Lung Right (HCC) (Primary Dx) 03/20/2024 Orders Only Department of Radiation Oncology in [address] [address] Albertina Stiles APRN, C.N.P., D.N.P. Malignant Neoplasm Of Lung Right (HCC) (Primary Dx) 03/19/2024 10:39 AM CDT - 03/19/2024 11:59 PM CDT Hospital Encounter Department of Radiology in [place], [place] [address] [place] [address] Laya Mitchell M.D. Malignant Neoplasm Of Lung Left (HCC); Malignant Neoplasm Of Lung Right (HCC); Nodules Pulmonary Multiple; Lymphadenopathy Mediastinum Discharge Disposition: Home or Self Care 03/11/2024 Orders Only Department of Oncology in [place], [place] [address] [place] [phone] Laya Mitchell M.D. Malignant Neoplasm Of Lung Left (HCC) (Primary Dx); Malignant Neoplasm Of Lung Right (HCC); Nodules Pulmonary Multiple; Lymphadenopathy Mediastinum 03/09/2024 2:34 PM CDT - 03/09/2024 4:32 PM CDT Hospital Encounter Department of Radiation Oncology in [place], [place] [address] [place] [address] Elsie Dewey M.D. Malignant Neoplasm Of Lung Left (HCC) (Primary Dx); Malignant Neoplasm Of Lung Right (HCC) from Last 3 Months Immunizations Name Administration Dates Next Due Influenza Split 03/24/2013 Social History Tobacco Use Types Packs/Day Years Used Date Smoking Tobacco: Former Cigarettes 2.5 49.1 0 09/25/1962 - 10/19/2011 Smokeless Tobacco: Never Tobacco Cessation:Counseling Given: Not Answered Alcohol Use Standard Drinks/Week Comments Yes 1 (1 standard drink = 0.6 oz pur e alcohol) [facility] Utilities Answer Date Recorded In the past 12 months has e [employer], gas, oil, or water [employer] threatened to shut off services in your [...] How often do you attend rastafari or muslim serv ices? Never 10/31/2022 Do [...] and heating? Not hard at all 10/31/2022 [facility] [employer] [facility] - Occupational Stress [...] your living situation today? I have a [facility] place to live 03/20/2024 Education Answer Date Recorded What is the highest level of school you have completed or the highest degree you have received? 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 Gender Identity Female 04/17/2018 10:15 AM CDT Sexual Orientation Straight 04/17/2018 10 :15 AM CDT Last Filed Vital Signs Vital Sign Reading Time Taken Comments Blood Pressure 141/74 04/01/2024 1:37 PM CDT Pulse 81 04/01/2024 1:37 PM CDT Temperature 37 C (98.6 F) 04/01/2024 1:37 PM CDT Respiratory Rate 18 10/01/2023 2:20 PM CDT Oxygen Saturation 95% 04/01/2024 1:37 PM CDT Inhaled Oxygen Concentration - - Weight 59.1 kg (130 lb 4.7 oz) 04/01/2024 1:37 P M CDT Height 157.5 cm (5' 2) 09/05/2023 6:11 AM CDT Body Mass Index 23.83 09/05/2023 6:11 AM CDT Plan of Treatment Upcoming Encounters Date Type Department Care Team (Late st Contact Info) Description 07/07/2024 10:30 AM TEAM LEADER Appointment Department of Radiology in [place], [place] [address] [place] [address] Laya Mitchell M.D. [address] [place] [phone] Discharge Disposition: Home or Self Care 07/07/2024 11:30 AM TEAM LEADER Appointment Department of Radiology in [place], [place] [address] [place] [address] Laya Mitchell M.D. [address] [place] [phone] 07/10/2024 2:30 PM TEAM LEADER Appointment Department of Radiation Oncology in [place], [place] [address] [place] [phone] Elsie Dewey M.D. [address] [place] [address] Health Maintenance Due Date Last Done Comments [...] on patient's age to complete this topic IPV Vaccines Aged Out No longer eligi ble based on patient's age to complete this topic Procedures Procedure Name Priority Date/Time Associated Diagnosis Comments ARIA COURSE COMPLETE TREATMENT INFORMATION Routine 04/03/2024 12:43 PM CDT ARIA DAILY TREATMENT INFORMATION Routine 04/03/2024 12:43 PM CDT ARIA DAILY TREATMENT INFORMATION Routine 04/01/2024 4:25 PM CDT ARIA DAILY TREATMENT INFORMATION Routine 03/30/2024 2:27 [...] Relevant to Health Maintenance Results * Aria Course Complete Treatment Information (04/03/2024 12:43 PM CDT) Course ID 3xLungLow rSBRT MENDOZA ARIA Course Start Date 4 08:42 CDT MENDOZA ARIA Course End Date 4 13:34 CDT MENDOZA ARIA First Treatment Date 4 14:24 CDT MENDOZA ARIA Last Treatment Date 4 12:43 CDT MENDOZA ARIA Treatment Elapsed Days 4 MENDOZA ARIA Reference Point [id number] MENDOZA ARIA Dosage Given to Date cGy 5400 MENDOZA ARIA Plan ID [id number] MENDOZA ARIA Fractions Treated to Date 3 MENDOZA ARIA Planned Total Fractions 3 MENDOZA ARIA Prescribed Dose Per Fraction 1800 MENDOZA ARIA Prescription Dose in cGy 5400 MENDOZA ARIA Plan Primary Reference Point [id number] MENDOZA ARIA 04/03/2024 12:4 3 PM CDT us Provider Not In System RADIATION ONCOLOGY ORDERA BLES Final Result MENDOZA ARIA na * Aria Daily Treatment Information (04/03/2024 12:43 PM CDT) Only the most recent of3 resultswithin the time period is included. Course ID 3xLungLow rSBRT MENDOZA ARIA Course Start Date 4 08:42 CDT MENDOZA ARIA First Treatment Date 4 14:24 CDT MENDOZA ARIA Last Treatment Date 4 12:43 CDT MENDOZA ARIA Treatment Elapsed Days 4 MENDOZA ARIA Reference Point [id number] MENDOZA ARIA Dosage Given to Date cGy 5400 MENDOZA ARIA Session Dosage Given 1800 MENDOZA ARIA Plan ID [id number] MENDOZA ARIA Fractions Treated to Date 3 MENDOZA ARIA Planned Total Fractions 3 MENDOZA ARIA Prescribed Dose Per Fraction 1800 MENDOZA ARIA Prescription Dose in cGy 5400 MENDOZA ARIA Plan Primary Reference Point [id number] MENDOZA ARIA 04/03/2024 12:4 3 PM CDT us Provider Not In System RADIATION ONCOLOGY ORDERA BLES Final Result MENDOZA ARIA na * Initial Rad Onc Treatment Planning CT Simulation without IV Contrast (03/24/2024 11:00 AM CDT) Narrative REJ[facility] SANDOVAL - 03/24/2024 11:00 AM CDT Melanie Leung, RTT 03/24/2024 11:28 AM Initial Rad Onc Treatment Planning CT Simulation without IV Contrast Performed by: Elsie Dewey M.D. Authorized by: Elsie Dewey M.D. us Elsie Dewey M.D. RADIATION ONCOLOGY ORDERA BLES Final Result REJI ortez * PET CT Skull to Thigh FDG (03/19/2024 12:17 PM CDT) Anatomical Region Laterality Modality Body, Nuclear Medicine PET R ST LOS, PET ARZ LOS, Nuclear Medicine PET FLA LOS, Nuclear Medicine N/A Positron Emission Tomography (PET) Impressions 03/19/2024 1:51 PM CDT 1. Interval increase in size, density and [...] RADIOPHARMACEUTICAL/MEDS: Route: intravenous fludeoxyglucose F 18 injection [facility] (FDG F-18),11.2 millicurie Procedure Note Corey Hillman [...] RADIOPHARMACEUTICAL/MEDS: Route: intravenous fludeoxyglucose F 18 injection [facility] (FDG F-18),11.2 millicurie IMPRESSION: 1. Interval increase [...] CT Body (03/05/2024 1:40 PM CDT) Narrative [facility] - 03/06/2024 1:36 PM CDT This order has been created and auto-finalized to support the import of outside images. If available, original interpretation can be found on the Media Tab in Chart Review, in Document Viewer, as an image in QREADS or as an Addendum. If a re-interpretation or overread is required please follow defined workflow. Provider Not In System IMG CT PROCEDURES [...] C.N.P., D.N.P. LAB BLOOD ADD-ON Final Result [facility] [address] [place] [address], [place] [facility] [address] [place] [address] from Last 3 Months or Most Recently Relevant to Health Maintenance Insurance MEDICARE [facility] Advance Directives For more information, please contact: [phone] Documents on File Type Date Recorded Patient Psychotherapist Expl anation Advance Directives 09/20/2023 6:06 PM Dario Dutton HCPOA/ADVOCATE/AGENT/R EPRESENTATIVE/SURROGAT E Advance Directives 01/12/2013 12:00 AM Leg acy document. See document viewer. Healthcare Agents on File Name Relationship Healthcare Agent Relationship Communication Dario Henderson Spouse Health Care Agent Anita Fuentes Daughter First Alterna te Health Care Agent
--- OUTSIDE RECORDS SUMMARY | 2024-05-06 17:10 | XMS_ITS | Encounter Summary ---
Author Organization [facility] Address [address] [place] [address] Care Team Providers Care Small Engine Mechanic Name Role Phone Unavailable Primary Care Provider Unavailabl e Encounter Details Date Type Department Care Team (Late st Contact Info) Description 04/01/2024 Clinical Communication Department of Radiation Oncology in [place], [place] [address] [place] [phone] Elsie Dewey M.D. [address] [place] [address] Social History Tobacco Use Types Packs/Day Years Used Date Smoking Tobacco: Former Cigarettes 2.5 49.1 0 09/25/1962 - 10/19/2011 Smokeless Tobacco: Never Alcohol Use Standard Drinks/Week Comments Yes 1 (1 standard drink = 0.6 oz pur e alcohol) [facility] Utilities Answer Date Recorded In the past [...] How often do you attend sabianist or latter day serv ices? Never 10/31/2022 [...] and heating? Not hard at all 10/31/2022 [facility] of Occupat ional Health - Occupational Stress [...] your living situation today? I have a [facility] place to live 03/20/2024 Education Answer Date Recorded What is the highest level of school you have completed or the highest degree you have received? 10th grade 10/24/2020 Comments No Sex and Gender Information Value Date Recorded Sex Assigned at Female 04/17/2018 10:15 AM CDT Legal Sex Female 4:08 PM CHILD CARE NURSE Gender Identity Female 04/17/2018 10:15 AM CDT [...] st Contact Info) Description 07/07/2024 10:30 AM CHILD CARE NURSE Appointment Department of Radiology in [place], [place] [address], [place] [address] Laya Mitchell M.D. [address] [place] [phone] Discharge Disposition: Home or Self Care 07/07/2024 11:30 AM CHILD CARE NURSE Appointment Department of Radiology in [place], [place] [address] [place] [address] Laya Mitchell M.D. [address] [place] [phone] 07/10/2024 2:30 PM CHILD CARE NURSE Appointment Department of Radiation Oncology in [place], [place] [address] [place] [phone] Elsie Dewey M.D. [address] [place] [address] documented as of this encounter Visit Diagnoses Not on filedocumented in this encounter
--- OUTSIDE RECORDS SUMMARY | 2024-05-06 17:10 | XMS_ITS | Encounter Summary ---
Author Organization [facility] Address [address] [place] [address] Care Team Providers Care Support Teacher Name Role Phone Unavailable Primary Care Provider Unavailabl e Encounter Details Date Type Department Care Team (Late st Contact Info) Description 04/03/2024 Documentation Department of Radiation Oncology in [place], [place] [address] [place] [phone] Elsie Dewey M.D. [address] [place] [phone] Social History Tobacco Use Types Packs/Day Years Used Date Smoking Tobacco: Former Cigarettes 2.5 49.1 0 09/25/1962 - 10/19/2011 Smokeless Tobacco: Never Alcohol Use Standard Drinks/Week Comments Yes 1 (1 standard drink = 0.6 oz pur e alcohol) [facility] Utilities Answer Date Recorded In the [...] declined 10/31/2022 How often do you attend protestant or worship serv ices? Never 10/31/2022 Do you belong to any clubs o r organizations such as protestant groups, unions, fraternal or athletic groups, or [...] your living situation today? I have a [facility] place to live 03/20/2024 Education Answer Date Recorded What is the highest level of school you have completed or the highest degree you have received? 10th grade 10/24/2020 Comments No Sex and Gender Information Value Date Recorded Sex Assigned at Female 04/17/2018 10:15 AM CDT Legal Sex Female 4:08 PM DIRECTOR OF PUBLIC SAFETY Gender Identity Female 04/17/2018 10:15 AM CDT Sexual Orientation Straight 04/17/2018 10 :15 AM CDT documented as of this encounter Miscellaneous Notes * Radiation Completion Notes - Kirsten Bella R.N. - 04/03/2024 11:59 PM CDT DIAGNOSIS: 1. Malignant Neoplasm Of Lung Right (HCC) Attending Physician: Elsie Dewey M.D. Treatment Intent: Curative Concomitant Therapy: None Single Plan Treatment Course: [id number] Plan ID Fractions Dose / Fraction (cGy) Dose Treated (cGy) Dose Planned (cGy) First Treatment Last Treatment Elapsed Days [id number] 3 [phone] [id number] 03/30/2024 04/03/2024 4 Course Summary 03/30/2024 04/03/2024 4 Radiation Modality: Photons CLINICAL SUMMARY Mrs. Anila Henderson completed radiation treatment as planned without interruptions. Patient was evaluated in the ER for chest pain and SOB but it was ruled to be non-cardiac. Patient was treated with steroids and antibiotics. The course of treatment was tolerated moderately well. The patientexperienced toxicities of grade 1 chest wall pain, dyspnea and fatigue during radiation treatment. TREATMENT RESPONSE: Response to treatment will be determined by post-treatment imaging and/or laboratory work. RECOMMENDED FOLLOW UP: Radiation Oncologist and Primary Medical Oncologist. Dr. Dewey and Dr. Mitchell Signed by: Kirsten Bella R.N., 04/08/2024 12:22 PM CDT [facility] [address] [place] [phone] Cosigned by Elsie Dewey M.D. at 04/08/2024 12:41 PM CDT documented in this encounter Plan of Treatment Upcoming Encounters Date Type Department Care Team (Late st Contact Info) Description 07/07/2024 10:30 AM DIRECTOR OF PUBLIC SAFETY Appointment Department of Radiology in [place], [place] [address] [address] Laya Mitchell M.D. [address] [place] [phone] Discharge Disposition: Home or Self Care 07/07/2024 11:30 AM DIRECTOR OF PUBLIC SAFETY Appointment Department of Radiology in [place], [place] [address], [place] [address] Laya Mitchell M.D. [address] [place] [phone] 07/10/2024 2:30 PM DIRECTOR OF PUBLIC SAFETY Appointment Department of Radiation Oncology in [place], [place] [address] [place] [phone] Elsie Dewey M.D. [address] [place] [address] documented as of this encounter Visit Diagnoses Diagnosis Malignant Neoplasm Of Lung Right (HCC)- Primary documented in this encounter
--- OUTSIDE RECORDS SUMMARY | 2024-05-06 17:10 | XMS_ITS | Clinical Summary ---
Author Organization [facility] Address [place], [place] [address] Care Team Providers Care Calender Operator Helper Name Role Phone Marbella Heart DO Primary Care Provider [phone] Allergies Active Allergy Reactions Criticality Noted Date Comments Aspirin Bleeding 03/21/2012 Atenolol Rash 02/24/2018 Penicillins *Unknown - Pt Doesn't Remember 09/16 Medications Medication Sig Dispensed Refills Start Date End Date Status multivitamin (MVI) tablet Take 1 tablet by mouth once daily. 0 10/12/2011 Active medication order composer Jomar Well Collagen pepbijal, powder form, 1 scoop daily 08/24/2020 Active glucos sul 2KCl/msm/chond/C/Mn (GLUCOSAMINE CHONDROITIN ORAL) Take by mouth. Act thanh apixaban (ELIQUIS) 5 mg tabletIndications:Ce rebrovascular accident (CVA) due to embolism of left middle cerebral artery (HC),Adenocarcinoma of left lung (HC),Anticoagulation monitoring, INR range 2-3 Take 1 Tablet (5 mg) by mouth two times daily. 180 Tablet 3 04/10/2024 Active albuterol HFA (PRO-AIR; VENTOLIN; PROVENTIL) 90 mcg/actuation inhalerIndications:C hronic obstructive pulmonary disease, unspecified COPD type (HC) Inhale 1-2 Puffs by mouth every 4 hours if needed for Shortness Of Breath or Wheezing (cough). 1 Each 2 04/10/2024 Active fluticasone xcd-qcydrzseismh-aia anterol (Trelegy Ellipta) 100-62.5-25 mcg inhalerIndications:C hronic obstructive pulmonary disease, unspecified COPD type (HC) Inhale 1 Puff by mouth once daily. 180 Each 3 04/10/2024 Active levothyroxine (SYNTHROID) 75 mcg tabletIndications:Hy pothyroidism (acquired) Take 1 Tablet (75 mcg) by mouth once daily. 90 Tablet 3 04/10/2024 Active sertraline (ZOLOFT) 50 mg tabletIndications:De pression, unspecified depression type Take 1 Tablet (50 mg) by mouth once daily. 90 Tablet 3 04/10/2024 Active simvastatin (ZOCOR) 40 mg tabletIndications:Hy perlipidemia, unspecified hyperlipidemia type Take 1 Tablet (40 mg) by mouth at bedtime. 90 Tablet 3 04/10/2024 Active albuterol HFA (PRO-AIR; VENTOLIN; PROVENTIL) 90 mcg/actuation inhalerIndications:C hronic obstructive pulmonary disease, unspecified COPD type (HC) Inhale 1-2 Puffs by mouth every 4 hours if needed for Shortness Of Breath or Wheezing (cough). 1 Each 2 12/27/2022 4 Discontinue d(Reorder (E-cancel not sent)) fluticasone nkp-jukiiktvdtsd-tza anterol (Trelegy Ellipta) 100-62.5-25 mcg inhalerIndications:C hronic obstructive pulmonary disease, unspecified COPD type (HC) Inhale 1 Puff by mouth once daily. 180 Each 3 07/01/2023 4 Discontinue d(Reorder (E-cancel not sent)) apixaban (ELIQUIS) 5 mg tabletIndications:Ce rebrovascular accident (CVA) due to embolism of left middle cerebral artery (HC),Adenocarcinoma of left lung (HC),Anticoagulation monitoring, INR range 2-3 Take 1 Tablet (5 mg) by mouth two times daily. 60 Tablet 5 10/07/2023 4 Discontinue d(Reorder (E-cancel not sent)) levothyroxine (SYNTHROID) 75 mcg tabletIndications:Hy pothyroidism (acquired) TAKE ONE TABLET BY MOUTH EVERY DAY 90 Tablet 02/19/2024 4 Discontinue d(Reorder (E-cancel not sent)) sertraline (ZOLOFT) 50 mg tabletIndications:De pression, unspecified depression type TAKE ONE TABLET BY MOUTH EVERY DAY 90 Tablet 02/19/2024 4 Discontinue d(Reorder (E-cancel not sent)) simvastatin (ZOCOR) 40 mg tabletIndications:Hy perlipidemia, unspecified hyperlipidemia type TAKE ONE TABLET BY MOUTH AT BEDTIME 90 Tablet 03/04/2024 4 Discontinue d(Reorder (E-cancel not sent)) Active Problems Problem Noted Date Diagnosed Date Adenocarcinoma of left lung 07/09/2018 Wears glasses 03/13/2018 Overview (03/13/2018): Follows at [facility]. Hypothyroidism (acquired) 09/09/2017 Hyperlipidemia 08/25/2014 Depression 08/25/2014 COPD (chronic obstructive pulmonary disease) 04/2015 Cerebrovascular accident (CV A) due to embolism of left middle cerebral artery 10/04/2011 Resolved Problems Problem Noted Date Diagnosed Date Resolved Date Pneumonia of right middle lo be due to infectious organism 08/15/2015 12/30/2017 HTN (hypertension) 03/21/2012 4 Anticoagulation monitoring, INR range 2-3 10/04/2011 10/11/2023 Overview (11/06/2017): Ok for every 6 weeks. See telephone enc dated 08/25/14. Anticoagulation JOSE- 11/06/17 WANTS TO STAY 6 WKS INR NURSE VISITS Verbal messages may be left for anticoagulation result, dosing, and instructions. Nina Mcmanus RN .................... 11/06/2017 2:05 PM Encounters Date Type Department Care Team Description 04/10/2024 10:50 AM CDT Office Visit [address] [address] Marbella Heart, Medicare ANNUAL (subsequent) Visit (no concerns) 04/09/2024 Travel 04/01/2024 Orders Only [facility] Scanner 1 scan: (1-Ord) [facility], CT ANGIO CHEST PE PROTOCOL , 04/01/2024 03/05/2024 Orders Only [facility] Scanner 1 scan: (1-Ord) [facility], CT CHEST W CONTRAST, 03/05/2024 02/28/2024 Refill [facility] [address] [place] [address] Marbella Heart, DO Refill Request (Simvastatin) 02/16/2024 Refill [facility] [address] [place] [address] Marbella Heart, DO Refill Request (Levothyroxine, Sertraline) from Last 3 Months Immunizations Name Administration Dates Next Due COVID-19 VACCINE SPIKEVAX (M ODERNA 50MCG/0.5ML) 12YO+ PFS 03/28/2023 COVID-19 vaccine (Bouncefootball-Bio NTech 30mcg/0.3mL) 12YO+ BIVALENT PF, MDV 04/02/2022 [...] Relation Name Comments Heart Disease Brother 2 PR Cancer-breast Maternal Aunt Diabetes Maternal Grandmother Heart Disease Mother Other Sister 2 emphysema Relation Name Status Comments Brother 1 Brother 2 Daughter Alive Father unknow Maternal Aunt Maternal Grandmother Mother (Age 71) Sister 1 (Age 54) emphysema Sister 2 Son car accident Social History Tobacco Use Types Packs/Day Years Used Date Smoking Tobacco: Former Cigarettes 2 50 0 09/18/1961 - 09/19/2011 Passive Smoke Exposure: Never Smokeless Tobacco: Never Tobacco Cessation:Counseling Given: Not Answered Alcohol Use Standard Drinks/Week Comments Yes 0 (1 standard drink = 0.6 oz pur e alcohol) occassionally PHQ-2 Answer Date Recorded PHQ-2 TOTAL SCORE 0 04/10/2024 Social Connections Answer Date Recorded Do you often feel lonely or isolated from those around you? 0 04/10/2024 Financial Resource Strain Answer Date R ecorded Difficulty of Paying Living Expenses 3 04/10/2024 Difficulty of Paying Living Expenses Not on file 04/10/2024 Food Insecurity Answer Date Recorded Do you worry your food will run out before you are able to buy more? 1 04/10/2024 Transportation Needs Answer Date Record ed Does lack of transportation keep you from medica l appointments? 1 04/10/2024 Does lack of transportation keep you from work, meetings or getting things that you need? 1 04/10/2024 Housing Stability Answer Date Recorded What is your housing situation today? 1 04/10/2024 Sex and Gender Information Value Date Recorded Sex Assigned at Not on file Gender Identity Not on file Sexual Orientation Not on file Obstetrics History Last Filed Vital Signs Vital Sign Reading Time Taken Comments Blood Pressure 100/68 04/10/2024 11:29 AM CDT Pulse 87 04/10/2024 11:29 AM CDT Temperature 37.1 C (98.8 F) 03/29/2023 8:58 AM CDT Respiratory Rate 16 06/20/2023 3:30 PM HOLIDAY DETECTOR OPERATOR Oxygen Saturation 98% 04/10/2024 11:29 AM CDT Inhaled Oxygen Concentration - - Weight 59.5 kg (131 lb 1.6 oz) 04/10/2024 11:29 AM CDT Height 156.5 cm (5' 1.61) 04/10/2024 11:29 AM C DT Body Mass Index 24.28 04/10/2024 11:29 AM CDT Plan of Treatment Upcoming Encounters Date Type Department Care Team (Late st Contact Info) Description 05/11/2024 8:10 AM HOLIDAY DETECTOR OPERATOR Office Visit [facility] [address] [place] [address] Sly Marbella Lynn, DO [address] [place] [address] Health Maintenance Due Date Last Done Comments Tetanus booster 10/16/2022 10/16/2012, 10/16/2012 COVID-19 vaccine series ( season) 2024 03/28/2023, 04/02/2022, 04/20/2021, Additional history exists Influenza for age 65+ 02/16/2024 03/28/2023 , 04/02/2022, 04/20/2021, Additional history exists Mammogram for age 45-75 04/23/2024 04/23/20 22, 04/08/2020, 09/16/2017, Additional history exists Low Dose CT (for lung CA) ag e 50-80 2024 2023, 11/01/2022, 10/30/2021, Additional history exists Fecal testing sDNA-FIT (Agar guard) for age 45-75 09/27/2024 09/27/2021 BMI (ht and wt on same day) for age 18+ 04/10/2025 04/10/2024, 10/01/2023, 09/18/2023, Additional history exists Depression screening for age 12+ 04/10/2025 04/10/2024, 03/29/2023, 03/29/2023, Additional history exists Medicare Wellness for age 65+ 04/11/2025, 03/28/2023, 03/30/2020, Additional history exists Lipids for age 45-75 03/28/2028 03/28/2023, 05/28/2022, 04/14/2021, Additional history exists Tdap Completed 10/16/2012 DEXA/DXA scan for age 65+ Completed 09/10/2016 Zoster (shingles) series for age 50+ Completed 12/01/2018, 09/30/2018 Hepatitis C screening for ag e 18-79 Completed 03/13/2019 Pneumococcal series for age 65+ Completed 05/28/2022, 02/13/2016, 12/10/2013 Procedures Procedure Name Priority Date/Time Associated Diagnosis Comments SCAN-ANGIOGRAM 04/01/2024 12:00 AM CDT SCAN-CT INTERPRETATION 12:[address] CHEST WO KELLIE 2023 2:09 PM HOLIDAY DETECTOR OPERATOR Acute left-sided thoracic back pain Adenocarcinoma of left lung (HC) LIPID PANEL W REFLEX MEASURED LDL Routine 03/28/2023 1:16 PM CDT HTN (hypertension) Cerebrovascular accident (CVA) due to embolism of left middle cerebral artery (HC) Other hyperlipidemia XR MAMMO BILAT SCREENING Routine 04/23/2022 10:11 AM HOLIDAY DETECTOR OPERATOR Encounter for screening mammogram for malignant [...] Relevant to Health Maintenance Results * SCAN-ANGIOGRAM (04/01/2024 12:00 AM CDT) Anatomical Region Laterality Modality Other Scanner OTHER * SCAN-CT INTERPRETATION (03/05/2024 12:00 AM CDT) Anatomical Region Laterality Modality Other Scanner OTHER * CT CHEST WO (2023 2:09 PM HOLIDAY DETECTOR OPERATOR) Anatomical Region Laterality Modality CHEST, THORAX, HEART Computed To mography 06/22/2023 1:16 AM HOLIDAY DETECTOR OPERATOR Addenda Addendum by Janna Wood MD on 07/17/2023 11:15 AM HOLIDAY DETECTOR OPERATOR For Patients: As a result of [...] @ Jul 17 2023 11:14AM (Electronically Signed) Impressions 06/22/2023 1:16 AM HOLIDAY DETECTOR OPERATOR 1. No etiology seen to explain [...] AM (Electronically Signed) Narrative 06/22/2023 1:16 AM HOLIDAY DETECTOR OPERATOR For Patients: As a result of [...] main pulmonary artery are normal in caliber. Mediastinum and ruy: No sign of mass [...] 100 - 199 mg/dL 03/28/2023 2:56 PM [facility] Comment: Cholesterol, Total Reference Ranges Desirable <200 mg/dL Borderline 200-239 mg/dL High >=240 mg/dL TRIGLYCERIDES 150(H) <150 mg/dL 03/28/2023 2:56 PM [facility] HDL CHOLESTEROL 66 >40 mg/dL 3 2:56 PM [facility] NON-HDL CHOLESTEROL 101 <145 mg/dl 03/28/2023 2:56 PM [facility] CHOL/HDL RATIO 2.53 <4.50 03/28/2023 2:56 PM [facility] LDL CHOLESTEROL 71 <=130 mg/dL 03/28/2023 2:56 PM [facility] VLDL CHOLESTEROL 30 <=30 mg/dL 03/28/2023 2:56 PM [facility] PROVIDER ORDERED STATUS RANDOM 03/28/2023 2:56 PM CDT [facility] Blood BLOOD SPECIMEN / Unknown Venipuncture / Unknown 03/28/2023 1:16 PM CDT 03/28/2023 1:17 PM CDT Marbella Heart DO CHEMISTRY [facility] [address] [place] [address] * XR MAMMO BILAT SCREENING (04/23/2022 10:11 AM HOLIDAY DETECTOR OPERATOR) Anatomical Region Laterality Modality BREASTS, Breast Left, Breast Right Bilateral Mammography Impressions 04/23/2022 11:55 AM HOLIDAY DETECTOR OPERATOR There is no radiographic evidence for malignancy. Recommend annual mammograms. MAMMOGRAM ASSESSMENT: ACR 1 Negative PATIENTS: You will also receive a letter with your examination results in an easy to read format. If you have questions about your results, please contact your referring provider. Narrative 04/23/2022 11:55 AM HOLIDAY DETECTOR OPERATOR For Patients: As a result of the Century Cures Act, medical imaging exams and procedure reports are released immediately into your electronic medical record. You may view this report before your referring provider. If you have questions, please contact your health care provider. XR MAMMO BILAT SCREENING [[id number]] CLINICAL HISTORY: This is an asymptomatic 71 y.o. patient. INDICATION FOR EXAM: Mammogram Screening. TECHNIQUE: CC & MLO views were obtained. This study was evaluated with the assistance of Computer-Aided Detection. COMPARISON FILM: Yes 04/08/20 FINDINGS: The breasts have scattered areas of fibroglandular density. There are no dominant masses, suspicious micro calcifications or areas of architectural distortion. Marbella Heart DO MAMMO * FECAL DNA (AKA COLOGUARD) (09/27/2021 12:00 AM CDT) Marbella Heart DO COMMUNICATION ORD * ANTI HCV (03/13/2019 3:42 PM CDT) HEPATITIS C ANTIBODY Non-React thanh Non-React thanh 03/13/2019 11:18 PM CDT [facility] Comment:Antibodies to HCV no t detected; does not exclude the possibility of exposure to HCV. Blood BLOOD SPECIMEN / Unknown Venipuncture / Unknown 03/13/2019 3:42 PM CDT 03/13/2019 3:42 PM CDT Marbella Heart DO SEND OUTS [facility] [address] [place] [address], [place] * XR DXA BONE DENSITY 2 SITES AXIAL (09/10/2016 2:54 PM CDT) Anatomical Region Laterality Modality Spine, HIPS, HIPL, HIPR Bone Den sitometry Narrative 09/12/2016 8:48 AM CDT Please see scanned document for results of this study. Marbella Heart DO DEXA from Last 3 Months or Most Recently Relevant to Health Maintenance Advance Directives Documents on File Type Date Recorded Patient Yarn Handler Expl anation Healthcare Directive 09/17/2023 024 Healthcare Directive 06/30/2012 2:01 PM AD SHAFFER DIRECTIVE, 06/30/2012 Care Teams Calender Operator Helper Relationship Specialty Start Date End Date Marbella Heart DO [address] [facility] [address] [address] PCP - General Internal Medicine 08/25/14
--- OUTSIDE RECORDS SUMMARY | 2024-05-06 17:10 | XMS_ITS | Encounter Summary ---
Author Organization [facility] Address [address] [place] [address] Care Team Providers Care Pack Out Operator Name Role Phone Unavailable Primary Care Provider Unavailabl e Reason for Referral * MRI/CAT/PET Scan (Routine) - Authorized Specialty Diagnoses / Procedures Referred By Ervin frye Referred To Contact Radiology Diagnoses Malignant Neoplasm Of Lung Left (HCC) Procedures MR Brain without and with IV Contrast Laya Mitchell M.D. [address] [place] [address] Phone: tel: fax: [facility] Region Referral ID Status Reason Start Date Expiration Date V isits Requested Visits Authorized [id number] Authorized 04/06/2024 04/06/2025 1 1 * MRI/CAT/PET Scan (Routine) - Authorized Specialty Diagnoses / Procedures Referred By Contfely t Referred To Contact Diagnoses Malignant Neoplasm Of Lung Left (HCC) Procedures PET CT Skull to Thigh FDG Laya Mitchell M.D. [address] [place] [address] Phone: tel: fax: [facility] Region Referral ID Status Reason Start Date Expiration Date V isits Requested Visits Authorized [id number] Authorized 04/06/2024 04/06/2025 1 1 Encounter Details Date Type Department Care Team (Late st Contact Info) Description 04/06/2024 Orders Only Department of Oncology in [place], [place] [address] [place] [phone] Laya Mitchell M.D. [address] [place] [phone] Malignant Neoplasm Of Lung Left (HCC) (Primary Dx) Social History Tobacco Use Types Packs/Day Years Used Date Smoking Tobacco: Former Cigarettes 2.5 49.1 0 09/25/1962 - 10/19/2011 Smokeless Tobacco: Never Alcohol Use Standard Drinks/Week Comments Yes 1 (1 standard drink = 0.6 oz pur e alcohol) [facility] Utilities Answer Date Recorded In the past 12 months has e [employer], gas, oil, or water [employer] threatened to shut off services in your [...] How often do you attend nondenominational or sikhism serv ices? Never 10/31/2022 Do [...] your living situation today? I have a [facility] place to live 03/20/2024 Education Answer Date Recorded What is the highest level of school you have completed or the highest degree you have received? 10th grade 10/24/2020 Comments No Sex and Gender Information Value Date Recorded Sex Assigned at Female 04/17/2018 10:15 AM CDT Legal Sex Female 4:08 PM WINDMILL MECHANIC Gender Identity Female 04/17/2018 10:15 AM CDT Sexual Orientation Straight 04/17/2018 10 :15 AM CDT documented as of this encounter Plan of Treatment Upcoming Encounters Date Type Department Care Team (Late st Contact Info) Description 07/07/2024 10:30 AM WINDMILL MECHANIC Appointment Department of Radiology in [place], [place] [address] [address] Laya Mitchell M.D. [address] [place] [phone] Discharge Disposition: Home or Self Care 07/07/2024 11:30 AM WINDMILL MECHANIC Appointment Department of Radiology in [place], [place] [address] [place] [address] Laya Mitchell M.D. [address] [place] [phone] 07/10/2024 2:30 PM WINDMILL MECHANIC Appointment Department of Radiation Oncology in [place], [place] [address] [place] [address] Elsie Dewey M.D. [address] [place] [address] Scheduled Orders Name Type Priority Associated Diagnoses Orde r Schedule PET CT Skull to Thigh FDG Imaging RAD - Routine (most inpatients and all outpatients) Malignant Neoplasm Of Lung Left (HCC) Expected: 07/07/2024, Expires: 07/07/2025 MR Brain without and with IV Contrast Imaging RAD - Routine (most inpatients and all outpatients) Malignant Neoplasm Of Lung Left (HCC) Expected: 07/07/2024, Expires: 07/07/2025 documented as of this encounter Visit Diagnoses Diagnosis Malignant Neoplasm Of Lung Left (HCC)- Primary documented in this encounter
--- OUTSIDE RECORDS SUMMARY | 2024-05-06 17:10 | XMS_ITS ---
Author Organization [facility] Address [address] [place] [address] Care Team Providers Care Long Winder Tender Name Role Phone Unavailable Unavailable Unavailable Surgery Details Not on file Complications Check Surgery Details section. Procedure Estimated Blood Loss Check Surgery Details section. Procedure Findings Check Surgery Details section. Procedure Specimens Taken Check Surgery Details section.
--- OUTSIDE RECORDS SUMMARY | 2024-05-06 17:10 | XMS_ITS | Encounter Summary ---
Author Organization [facility] Address [address] [place] [address] Care Team Providers Care Benefits Analyst Name Role Phone Unavailable Primary Care Provider Unavailabl e Reason for Referral * Outpatient (Routine) - Authorized Specialty Diagnoses / Procedures Referred By Contac t Referred To Contact Radiation Oncology Elsie Dewey M.D. [address] [place] [address] Phone: tel: fax: [facility] Region Referral ID Status Reason Start Date Expiration Date V isits Requested Visits Authorized [id number] Authorized 04/02/2024 10/02/2025 1 1 * MRI/CAT/PET Scan (Routine) - Authorized Specialty Diagnoses / Procedures Referred By Contac t Referred To Contact Radiology Diagnoses Malignant Neoplasm Of Lung Right (HCC) Procedures CT Chest without IV Contrast Elsie Dewey M.D. [address] [place] [address] Phone: tel: fax: [facility] Region Referral ID Status Reason Start Date Expiration Date V isits Requested Visits Authorized [id number] Authorized 04/02/2024 04/02/2025 1 1 * Radiation Therapy (Routine) - Authorized Specialty Diagnoses / Procedures Referred By Ervin frye Referred To Contact Diagnoses Malignant Neoplasm Of Lung Right (HCC) Procedures Management Visit Elsie Dewey M.D. [address] [place] [address] Phone: tel: fax: [facility] Region Referral ID Status Reason Start Date Expiration Date V isits Requested Visits Authorized [id number] Authorized 03/20/2024 03/20/2025 10 10 Reason for Visit * Radiation Therapy (Routine) - Authorized Specialty Diagnoses / Procedures Referred By Ervin frye Referred To Contact Diagnoses Malignant Neoplasm Of Lung Right (HCC) Procedures Management Visit Elsie Dewey M.D. [address] [place] [address] Phone: tel: fax: [facility] Region Referral ID Status Reason Start Date Expiration Date V isits Requested Visits Authorized [id number] Authorized 03/20/2024 03/20/2025 10 10 Encounter Details Date Type Department Care Team (Latest Contact Info) Description 04/01/2024 1:31 PM CDT - 04/02/2024 12:19 PM CDT Hospital Encounter Department of Radiation Oncology in [place], [place] [address] [place] [phone] Elsie Dewey M.D. [address] [place] [address] Malignant Neoplasm Of Lung Right (HCC) Social History Tobacco Use Types Packs/Day Years Used Date Smoking Tobacco: Former Cigarettes 2.5 49.1 0 09/25/1962 - 10/19/2011 Smokeless Tobacco: Never Alcohol Use Standard Drinks/Week Comments Yes 1 (1 standard drink = 0.6 oz pur e alcohol) [facility] Utilities Answer Date Recorded In the past 12 months has th e electric, gas, oil, or water [employer] threatened to shut off services in your [...] How often do you attend jew or confucianist serv ices? Never 10/31/2022 Do you belong [...] and heating? Not hard at all 10/31/2022 [facility] [place] of Occupat ional Health - Occupational Stress [...] your living situation today? [facility] 03/20/2024 Education Answer Date Recorded What is the highest level of school you have completed or the highest degree you have received? 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 - 04/01/2024 2:00 PM CDT ATTESTATION FOR MANAGEMENT VISIT I saw and evaluated the patient and participated in the eubanks portions of the service as noted below.I reviewed the documentation of Ms. Kirsten Bella RN and agree with the findings and plan. Thepatient appears well on exam. Heart- regular rate and rhythm. Lungs- no dullness to percussion; clear to auscultation. I think we need to send her to the ER to rule out a cardiac cause of her chest pain although it is improving. We will continue with radiation as planned if she is able to return this afternoon or we will do the treatment tomorrow. ADDENDUM: She later returned after cardiac causes of chest pain were ruled out in the ER. She was given steroids and antibiotics and returned for her second fraction of SBRT. She will complete her treatments this Saturday. We will see her back for a regular follow-up in [address] chest. Elsie Dewey M.D., 04/01/2024 SUBJECTIVE CHIEF COMPLAINT/REASON FOR VISIT Evaluation for side effects while receiving radiation treatment for 1. Malignant Neoplasm Of Lung Right (HCC) SUPERVISED BY: Elsie Dewey M.D. HISTORY OF PRESENT ILLNESS Mrs. Anila Henderson is a 73 y.o. female with multifocal lung cancer who is now undergoing radiation treatment. Treatment Course: [id number] Plan ID Fractions Dose / Fraction (cGy) Dose Treated (cGy) Dose Planned (cGy) First Treatment Last Treatment Elapsed Days [id number] 2 / 3 1800 3600 5400 03/30/2024 04/01/2024 2 Course Summary 03/30/2024 04/01/2024 2 The patient was seen and examined today with Dr. Dewey. The patient reports that last night prior to going to bed she had an episode of shortness of breathwhere it was hard for her to cath her breath. She took three puff of her Albuterol rescue inhaler and report little relief from that. She notes at the same time she developed chills. She did not check her temperature at this time. Patient also notes the yesterday she started to develop chest pressure that wasn't present on Saturday after radiation treatment. Patient notes the pressure to be localized to the center of chest and also feels chest heaviness. She continues to feel short of breath but not as much as when she used her rescue inhaler last night. Patient denies cough. PATIENT REPORTED SYMPTOM SCREEN: FATIGUE (Scale: 0 = no fatigue; 10 = worst fatigue you can imagine): not reported PAIN (Scale: 0 = no pain; 10 = worst pain you can imagine): not reported OVERALL QUALITY OF LIFE (Scale: 0 = as bad as can be; 10 = as good as can be): not reported OBJECTIVE BP 141/74 (BP Location: Right arm, Patient Position: Sitting, Cuff Size: Regular) Pulse 81 Temp37 ??C (Temporal) Wt 59.1 kg BMI 23.83 kg/m?? PHYSICAL EXAMINATION General: Alert and oriented, in no apparent distress. ASSESSMENT / PLAN [...] N0 M0, enlarging, PET avid, non-biopsy proven #5 Stereotatic body radiotherapy to right lower lobe lesion initiated on April 01, 2024; anticipated date of completion April 03, 2024. Patient's vital signs were stable. She did not have a fever at this time and oxygen saturation was WNL. Per Dr. Dewey patient was advised to go to the ER for further evaluation. Patient and were agreeable to this. We will follow up with results of this ER evaluation. If nothing of concern is found that is contributing to the chest pressure patient will resume radiation treatment. See 's attestation for further details. Signed by: Kirsten Bella R.N. 04/01/2024 documented in this encounter Miscellaneous Notes * Addendum Note - Kirsten Bella R.N. - 04/01/2024 2:00 PM CDTEncounter addended by: Kirsten Bella R.N. on: 04/08/2024 12:21 PM Actions taken: Flowsheet macro applied, Flowsheet accepted documented in this encounter Plan of Treatment Upcoming Encounters Date Type Department Care Team (Late st Contact Info) Description 07/07/2024 10:30 AM OUTSOLE CEMENTER MACHINE Appointment Department of Radiology in [place], [place] [address] [address] Laya Mitchell M.D. [address] [place] [address] Discharge Disposition: Home or Self Care 07/07/2024 11:30 AM OUTSOLE CEMENTER MACHINE Appointment Department of Radiology in [place], [place] [address] [address] Laya Mitchell M.D. [address] [place] [address] 07/10/2024 2:30 PM OUTSOLE CEMENTER MACHINE Appointment Department of Radiation Oncology in [place], [place] [address] [place] [address] Elsie Dewey M.D. [address] [place] [address] Scheduled Orders Name Type Priority Associated Diagnoses Order Schedule Management Visit Radiation Oncology Routine Malignant Neoplasm Of Lung Right (HCC) Once for 1 Occurrences starting 04/01/2024 until 04/01/2024 CT Chest without IV Contrast Imaging RAD - Routine (most inpatients and all outpatients) Malignant Neoplasm Of Lung Right (HCC) Expected: 07/03/2024, Expires: 07/03/2025 Scheduled Referrals Name Type Priority Associated Diagnoses Orde r Schedule Radiation Oncology office visit (clinic) Outpatient Referral Routine Expected: 07/03/2024 (Approximate), Expires: 04/02/2025 documented as of this encounter Visit Diagnoses Diagnosis Malignant Neoplasm Of Lung Right (HCC) documented in this encounter
--- OUTSIDE RECORDS SUMMARY | 2024-05-06 17:10 | XMS_ITS ---
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 Past Plans No past plan information found. Radiation Treatments * Plan Last Treated On Elapsed Days Fractions Treated Prescribed Fraction Dose Prescribed Total Dose [id number] 04/03/2024 4 3 of 3 1,800 cGy 5,400 c Gy [id number] 11/01/2023 39 30 of 30 200 cGy 6,000 cGy Reference Point Last Treated On Elapsed Days Session Dose Total Dose [id number] 04/03/2024 4 1,800 cGy 5,400 cGy [id number] 11/01/2023 39 200 cGy 6,000 cGy Lifetime Dose Tracking * Chemical Lifetime Dose Automatic Entry Manual Entr y Radiation 264.4 mGy 264.4 mGy 0 mGy Fluoro Time 9.29 minutes 9.29 minutes 0 minutes DAP (uGy-m2) 4,088.8 uGy-m2 4,088.8 uGy-m2 0 uGy-m2
--- OUTSIDE RECORDS SUMMARY | 2024-05-06 17:10 | XMS_ITS | Referral Summary ---
Author Organization [facility] Address [address] [place] [address] Care Team Providers Care Research Assistant Member Name Role Phone Unavailable Primary Care Provider Unavailabl e Source Comments Patient records contain information from all sites at [facility]. For routine questions regarding patient records, call [phone] during business hours, M-F 8:00 AM - 5:00 PM Central Time. Record requests for emergency care only can be directed to [phone] at any time.[facility] Encounters Date Type Department Care Team Description 04/06/2024 Orders Only Department of Oncology in [place], [place] [address] [place] [address] Laya Mitchell M.D. Malignant Neoplasm Of Lung Left (HCC) (Primary Dx) 04/03/2024 Documentation Department of Radiation Oncology in [address] [address] Elsie Dewey M.D. 04/03/2024 12:06 PM CDT - 04/03/2024 11:59 PM CDT Hospital Encounter Department of Radiation Oncology in [address] [address] Elsie Dewey M.D. Discharge Disposition: Home or Self Care 04/01/2024 1:31 PM CDT - 04/02/2024 12:19 PM CDT Hospital Encounter Department of Radiation Oncology in [address] [address] Elsie Dewey M.D. Malignant Neoplasm Of Lung Right (HCC) 04/01/2024 2:15 PM CDT - 04/01/2024 11:59 PM CDT Hospital Encounter Department of Radiation Oncology in [address] [address] Elsie Dewey M.D. Discharge Disposition: Home or Self Care 04/01/2024 Clinical Communication Department of Radiation Oncology in [address] [address] Elsie Dewey M.D. 03/30/2024 1:49 PM CDT - 03/30/2024 11:59 PM CDT Hospital Encounter Department of Radiation Oncology in [address] [address] Elsie Dewey M.D. Discharge Disposition: Home or Self Care 03/24/2024 10:57 AM CDT - 03/25/2024 9:02 AM CDT Hospital Encounter Department of Radiation Oncology in [address] [address] Elsie Dewey M.D. Malignant Neoplasm Of Lung Right (HCC) 03/24/2024 10:26 AM CDT - 03/24/2024 10:56 AM CDT Hospital Encounter Department of Radiation Oncology in [address] [address] Elsie Dewey M.D. Malignant Neoplasm Of Lung Right (HCC) (Primary Dx) 03/20/2024 Orders Only Department of Radiation Oncology in [address] [address] Albertina Stiles APRN, C.N.P., D.N.P. Malignant Neoplasm Of Lung Right (HCC) (Primary Dx) 03/19/2024 10:39 AM CDT - 03/19/2024 11:59 PM CDT Hospital Encounter Department of Radiology in [place], [place] [address] [place] [address] Laya Mitchell M.D. Malignant Neoplasm Of Lung Left (HCC); Malignant Neoplasm Of Lung Right (HCC); Nodules Pulmonary Multiple; Lymphadenopathy Mediastinum Discharge Disposition: Home or Self Care 03/11/2024 Orders Only Department of Oncology in [place], [place] [address] [place] [address] Laya Mitchell M.D. Malignant Neoplasm Of Lung Left (HCC) (Primary Dx); Malignant Neoplasm Of Lung Right (HCC); Nodules Pulmonary Multiple; Lymphadenopathy Mediastinum 03/09/2024 2:34 PM CDT - 03/09/2024 4:32 PM CDT Hospital Encounter Department of Radiation Oncology in [place], [place] [address] [place] [address] Elsie Dewey M.D. Malignant Neoplasm Of Lung [...] drink = 0.6 oz pur e alcohol) [facility] Utilities Answer Date Recorded In the past 12 months has [facility] [employer], gas, oil, or water [employer] threatened to shut off services in your [...] How often do you attend jainism or roman catholic serv ices? Never 10/31/2022 [...] and heating? Not hard at all 10/31/2022 [facility] [place] of Occupat ional Health - Occupational Stress [...] your living situation today? I have a [facility] place to live 03/20/2024 Education Answer Date Recorded What is the highest level of school you have completed or the highest degree you have received? 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 [address] [place] [address] Discharge Disposition: Home or Self Care 07/07/2024 11:30 AM COMPUTER SCIENCE PROFESSOR Appointment Department of Radiology in [place], [place] [address] [place] [address] Laya Mitchell M.D. [address] [facility] [place] [phone] 07/10/2024 2:30 PM COMPUTER SCIENCE PROFESSOR Appointment Department of Radiation Oncology in [place], [place] [address] [place] [address] Elsie Dewey M.D. [address] [place] [address] Procedures Procedure Name Priority Date/Time Associated Diagnosis Comments ARIA COURSE COMPLETE TREATMENT INFORMATION Routine 04/03/2024 12:43 PM CDT [facility] DAILY TREATMENT INFORMATION Routine 04/03/2024 12:43 PM CDT [facility] DAILY TREATMENT INFORMATION Routine 04/01/2024 4:25 PM CDT [facility] DAILY TREATMENT INFORMATION Routine 03/30/2024 2:27 PM [...] Elapsed Days 4 MENDOZA ARIA Reference Point [id number] MENDOZA ARIA Dosage Given to Date cGy 5400 MENDOZA ARIA Plan ID [id number] MENDOZA ARIA Fractions Treated to Date 3 MENDOZA ARIA Planned Total Fractions 3 MENDOZA ARIA Prescribed Dose Per Fraction 1800 MENDOZA ARIA Prescription Dose in cGy 5400 MENDOZA ARIA Plan Primary Reference Point [id number] MENDOZA ARIA 04/03/2024 12:4 3 PM CDT us Provider Not In System RADIATION ONCOLOGY ORDERA BLES Final Result MENDOZA ELIANA na * Aria Daily Treatment Information (04/03/2024 12:43 PM CDT) Only the most recent of3 resultswithin the time period is included. Course ID 3xLungLow rSBRT MENDOZA ARIA Course Start Date 4 08:42 CDT MENDOZA ARIA First Treatment Date 4 14:24 CDT MENDOZA ARIA Last Treatment Date 4 12:43 CDT MENDOZA ARIA Treatment Elapsed Days 4 MENDOZA ARIA Reference Point [id number] MENDOZA ARIA Dosage Given to Date cGy 5400 MENDOZA ARIA Session Dosage Given 1800 MENDOZA ARIA Plan ID [id number] MENDOZA ARIA Fractions Treated to Date 3 MENDOZA ARIA Planned Total Fractions 3 MENDOZA ARIA Prescribed Dose Per Fraction 1800 MENDOZA ARIA Prescription Dose in cGy 5400 MENDOZA ARIA Plan Primary Reference Point [id number] [facility] 04/03/2024 12:4 3 PM CDT us Provider Not In System RADIATION ONCOLOGY ORDERA BLES Final Result REJI SANDOVAL na * Initial Rad Onc Treatment Planning CT Simulation without IV Contrast (03/24/2024 11:00 AM CDT) Narrative REJI PLUMMERA - 03/24/2024 11:00 AM CDT Melanie Leung, RTT 03/24/2024 11:28 AM Initial Rad Onc Treatment Planning CT Simulation without IV Contrast Performed by: Elsie Dewey M.D. Authorized by: Elsie Dewey M.D. us Elsie Dewey M.D. RADIATION ONCOLOGY ORDERA BLES Final Result Performing Organization Address City/[facility]/[place] [employer] Phone Number REJI SANDOVAL na * PET CT Skull [...] RADIOPHARMACEUTICAL/MEDS: Route: intravenous fludeoxyglucose F 18 injection CORRECTION (FDG F-18),11.2 millicurie Procedure Note Corey Hillman [...] RADIOPHARMACEUTICAL/MEDS: Route: intravenous fludeoxyglucose F 18 injection CORRECTION (FDG F-18),11.2 millicurie IMPRESSION: 1. Interval increase [...] CT Body (03/05/2024 1:40 PM CDT) Narrative [facility] - 03/06/2024 1:36 PM CDT This order [...] System IMG CT PROCEDURES Final R esult IIND NA * (ABNORMAL) Comprehensive Metabolic Panel (09/04/2023 [...] C.N.P., D.N.P. LAB BLOOD ADD-ON Final Result [facility] [address] [place] [address], [facility] DTL [facility] [address] [place] [address] from Last 3 Months or Most Recently Relevant to Health Maintenance Insurance MEDICARE [facility] Advance Directives For more information, please contact: [phone] Documents on File Type Date Recorded Patient Second Worker Expl anation Advance Directives 09/20/2023 6:06 PM Dario Dutton HCPOA/ADVOCATE/AGENT/R EPRESENTATIVE/SURROGAT E Advance Directives 01/12/2013 12:00 AM Leg acy document. See document viewer. Healthcare Agents on File Name Relationship Healthcare Agent Relationship Communication Dario Henderson Spouse Health Care Agent Anita Fuentes Daughter First Alterna te Health Care Agent
--- OUTSIDE RECORDS SUMMARY | 2024-05-06 17:10 | XMS_ITS | Encounter Summary ---
Author Organization [facility] Address [address] [place] [address] Care Team Providers Care Press Operator Carbon Products Name Role Phone Unavailable Primary Care Provider Unavailabl e Encounter Details Date Type Department Care Team (Latest Contact Info) Description 04/01/2024 2:15 PM CDT - 04/01/2024 11:59 PM CDT Hospital Encounter Department of Radiation Oncology in [place], [place] [address] [place] [phone] Elsie Dewey M.D. [address] [place] [address] Discharge Disposition: Home or Self Care Social History Tobacco Use Types Packs/Day Years Used Date Smoking Tobacco: Former Cigarettes 2.5 49.1 0 09/25/1962 - 10/19/2011 Smokeless Tobacco: Never Alcohol Use Standard Drinks/Week Comments Yes 1 (1 standard drink = 0.6 oz pur e alcohol) [facility] Utilities Answer Date Recorded In [...] How often do you attend spiritism or jewish serv ices? Never 10/31/2022 Do [...] and heating? Not hard at all 10/31/2022 [facility] [place] of Occupat ional Health - Occupational Stress [...] AM CDT Legal Sex Female 4:08 PM BUDGET CONSULTANT Gender Identity Female 04/17/2018 10:15 AM CDT [...] st Contact Info) Description 07/07/2024 10:30 AM BUDGET CONSULTANT Appointment Department of Radiology in [place], [place] [address] [place] [address] Laya Mitchell M.D. [address] [place] [phone] Discharge Disposition: Home or Self Care 07/07/2024 11:30 AM BUDGET CONSULTANT Appointment Department of Radiology in [place], [place] [address] [address] Laya Mitchell M.D. [address] [place] [address] 07/10/2024 2:30 PM BUDGET CONSULTANT Appointment Department of Radiation Oncology in [place], [place] [address] [place] [phone] Elsie Dewey M.D. [address] [place] [address] documented as of this encounter Visit Diagnoses Not on filedocumented in this encounter
--- OUTSIDE RECORDS SUMMARY | 2024-05-06 17:11 | XMS_ITS | Encounter Summary ---
Author Organization [facility] Address [address] [place] [address] Care Team Providers Care Tube Balancer Name Role Phone Unavailable Primary Care Provider Unavailabl e Reason for Referral * Outpatient (Routine) - Closed Specialty Diagnoses / Procedures Referred By Ervin frye Referred To Contact Radiation Oncology Diagnoses Malignant Neoplasm Of Lung Right (HCC) Elsie Dewey M.D. [address] [place] [address] Phone: tel: fax: Elsie Deewy M.D. [address] [place] [address] Phone: tel: fax: Referral ID Status Reason Start Date Expiration Date Visits Re quested Visits Authorized [id number] Closed 03/20/2024 09/19/2025 1 1 Scheduling Instructions Coordinate with SIM * Radiation Therapy (Routine) - Authorized Specialty Diagnoses / Procedures Referred By Ervin frye Referred To Contact Diagnoses Malignant Neoplasm Of Lung Right (HCC) Procedures Management Visit Elsei Dewey M.D. [address] [place] [address] Phone: tel: fax: [facility] Region Referral ID Status Reason Start Date Expiration Date V isits Requested Visits Authorized [id number] Authorized 03/20/2024 03/20/2025 10 10 * Radiation Therapy (Routine) - Closed Specialty Diagnoses / Procedures Referred By Contac t Referred To Contact Diagnoses Malignant Neoplasm Of Lung Right (HCC) Procedures Initial Rad Onc Treatment Planning CT Simulation without IV Contrast Elsie Dewey M.D. [address] [place] [address] Phone: tel: fax: [facility] Region Referral ID Status Reason Start Date Expiration Date Visits Re quested Visits Authorized [id number] Closed 03/20/2024 03/20/2025 1 1 * Radiation Therapy (Routine) - Authorized Specialty Diagnoses / Procedures Referred By Contac t Referred To Contact Diagnoses Malignant Neoplasm Of Lung Right (HCC) Procedures Prior Auth Rad Tx Elsie Dewey M.D. [address] [place] [address] Phone: tel: fax: [facility] Referral ID Status Reason Start Date Expiration Date V isits Requested Visits Authorized [id number] Authorized 03/20/2024 03/20/2025 1 1 Encounter Details Date Type Department Care Team (Late st Contact Info) Description 03/20/2024 Orders Only Department of Radiation Oncology in [place], [place] [address] [place] [phone] Albertina Stiles APRN, C.N.P., D.N.P. [address] [place] [phone] Malignant Neoplasm Of Lung Right (HCC) (Primary [...] How often do you attend buddhist or yazidism serv ices? Never 10/31/2022 Do [...] heating? Not hard at all 10/31/2022 [facility] of Occupat ional Health - Occupational Stress [...] AM CDT Legal Sex Female 4:08 PM ROCK SPLITTER Gender Identity Female 04/17/2018 10:15 AM CDT Sexual Orientation Straight 04/17/2018 10 :15 AM CDT documented as of this encounter Plan of Treatment Upcoming Encounters Date Type Department Care Team (Late st Contact Info) Description 07/07/2024 10:30 AM ROCK SPLITTER Appointment Department of Radiology in [place], [place] [address], [place] [address] Laya Mitchell M.D. [address] [place] [address] Discharge Disposition: Home or Self Care 07/07/2024 11:30 AM ROCK SPLITTER Appointment Department of Radiology in [place], [place] [address], [place] [address] Laya Mitchell M.D. [address] [place] [address] 07/10/2024 2:30 PM ROCK SPLITTER Appointment Department of Radiation Oncology in [place], [place] [address] [place] [address] Elsie Dewey M.D. [address] [place] [address] Scheduled Orders Name Type Priority Associated Diagnoses [...] Dewey M.D. Authorized by: Elsie Dewey M.D. Elsie Dewey M.D. RADIATION ONCOLOGY ORDERA BLES Final Result REJI SANDOVAL na documented in this encounter Visit Diagnoses Diagnosis Malignant Neoplasm Of Lung Right (HCC)- Primary Malignant Neoplasm Of Lung Right (HCC) documented in this encounter
--- OUTSIDE RECORDS SUMMARY | 2024-05-06 17:11 | XMS_ITS | Encounter Summary ---
Author Organization [facility] Address [address] [place] [address] Care Team Providers Care Non Morse Intercept Technician Name Role Phone Unavailable Primary Care Provider Unavailabl e Reason for Referral * Outpatient (Routine) - Closed Specialty Diagnoses / Procedures Referred By Ervin frye Referred To Contact Radiation Oncology Diagnoses Malignant Neoplasm Of Lung Right (HCC) Elsie Dewey M.D. [address] [place] [address] Phone: tel: fax: Elsie Dewey M.D. [address] [place] [address] Phone: tel: fax: Referral ID Status Reason Start Date Expiration Date Visits Re quested Visits Authorized [id number] Closed 03/20/2024 09/19/2025 1 1 Scheduling Instructions Coordinate with SIM Reason for Visit * Outpatient (Routine) - Closed Specialty Diagnoses / Procedures Referred By Ervin frye Referred To Contact Radiation Oncology Diagnoses Malignant Neoplasm Of Lung Right (HCC) Elsie Dewey M.D. [address] [place] [address] Phone: tel: fax: Elsie Dewey M.D. [address] [place] [address] Phone: tel: fax: Referral ID Status Reason Start Date Expiration Date Visits Re quested Visits Authorized [id number] Closed 03/20/2024 09/19/2025 1 1 Encounter Details Date Type Department Care Team (Latest Contact Info) Description 03/24/2024 10:26 AM CDT - 03/24/2024 10:56 AM CDT Hospital Encounter Department of Radiation Oncology in [place], [place] [address] [place] [address] Elsie Dewey M.D. [address] [place] [phone] Malignant Neoplasm Of Lung Right (HCC) (Primary Dx) Social History Tobacco Use Types Packs/Day Years Used Date Smoking Tobacco: Former Cigarettes 2.5 49.1 0 09/25/1962 - 10/19/2011 Smokeless Tobacco: Never Alcohol Use Standard Drinks/Week Comments Yes 1 (1 standard drink = 0.6 oz pur e alcohol) [facility] Utilities Answer Date Recorded In the past 12 months has e [employer], gas, oil, or water [employer] threatened to shut off services in your [...] How often do you attend muslim or faith serv ices? Never 10/31/2022 Do [...] and heating? Not hard at all 10/31/2022 [facility] of Occupat ional Health - Occupational [...] your living situation today? I have a [facility] place to live 03/20/2024 Education Answer Date Recorded What is the highest level of school you have completed or the highest degree you have received? 10th grade 10/24/2020 Comments No Sex and Gender Information Value Date Recorded Sex Assigned at Female 04/17/2018 10:15 AM CDT Legal Sex Female 4:08 PM BAKERY WORKER CONVEYOR LINE Gender Identity Female 04/17/2018 10:15 AM CDT Sexual Orientation Straight 04/17/2018 10 :15 AM CDT documented as of this encounter Last Filed Vital Signs Vital Sign Reading Time Taken Comments Blood Pressure 154/73 03/24/2024 10:28 AM CDT Pulse 70 03/24/2024 10:28 AM CDT Temperature 35.9 C (96.7 F) 03/24/2024 10:28 AM CDT Respiratory Rate - - Oxygen Saturation [...] Anila Henderson is a 73 y.o. female a [...] with the two right lower nodules likely automotive sales representative of low-grade adenocarcinoma. 14. April [...] patient care. Signed by: Albertina Stiles APRN, C.N.PJessica, D.N.P. 03/24/2024 11:39 AM CDT [facility] [address] [place] [address] Cosigned by Elsie Dewey M.D. at 03/24/2024 12:39 PM CDT Associated attestation - Elsie Dewey M.D. - 03/24/2024 12:39 PM CDT RADIATION ONCOLOGY FOLLOW-UP VISIT I saw and evaluated the patient and participated in the eubanks portions of the service. I reviewed thedocumentation of Ms. Albertina Stiles APRN and agree with the findings [...] We discussed the acute as well as long wall mining machine tender risks, including, but not limited to fatigue, [...] st Contact Info) Description 07/07/2024 10:30 AM BAKERY WORKER CONVEYOR LINE Appointment Department of Radiology in [place], [place] [address] [place] [address] Laya Mitchell M.D. [address] [place] [phone] Discharge Disposition: Home or Self Care 07/07/2024 11:30 AM BAKERY WORKER CONVEYOR LINE Appointment Department of Radiology in [place], [place] [address] [place] [address] Laya Mitchell M.D. [address] [place] [phone] 07/10/2024 2:30 PM BAKERY WORKER CONVEYOR LINE Appointment Department of Radiation Oncology in [place], [place] [address] [place] [phone] Elsie Dewey M.D. [address] [place] [address] Scheduled Referrals Name Type Priority Associated Diagnoses Order Schedule Radiation Oncology office visit (clinic) Outpatient Referral Routine Malignant Neoplasm Of Lung Right (HCC) Once for 1 Occurrences starting 03/24/2024 until 03/24/2024 documented as of this encounter Visit Diagnoses Diagnosis Malignant Neoplasm Of Lung Right (HCC)- Primary documented in this encounter
--- OUTSIDE RECORDS SUMMARY | 2024-05-06 17:11 | XMS_ITS | Encounter Summary ---
Author Organization 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 [address] [place] [address] Phone: tel: fax: [facility] Region Referral ID Status Reason Start Date Expiration Date Visits Re quested Visits Authorized [id number] Closed 03/11/2024 03/11/2025 1 1 Encounter Details Date Type Department Care Team (Late st Contact Info) Description 03/11/2024 Orders Only Department of Oncology in [place], [place] [address] [place] [phone] Laya Mitchell M.D. [address] [place] [phone] Malignant Neoplasm Of Lung Left (HCC) (Primary [...] In the past 12 months has e [employer], gas, oil, or water [employer] threatened to shut off services in your [...] How often do you attend spiritism or yazidi serv ices? Never 10/31/2022 Do you belong [...] at all 10/31/2022 [facility] - Occupational Stress Questionnaire Answer Date [...] AM CDT Legal Sex Female 4:08 PM STABBER Gender Identity Female 04/17/2018 10:15 AM CDT Sexual Orientation Straight 04/17/2018 10 :15 AM CDT documented as of this encounter Plan of Treatment Upcoming Encounters Date Type Department Care Team (Late st Contact Info) Description 07/07/2024 10:30 AM STABBER Appointment Department of Radiology in [place], [place] [address] [address] Laya Mitchell M.D. [address] [place] [phone] Discharge Disposition: Home or Self Care 07/07/2024 11:30 AM STABBER Appointment Department of Radiology in [place], [place] [address] [address] Laya Mitchell M.D. [address] [place] [phone] 07/10/2024 2:30 PM STABBER Appointment Department of Radiation Oncology in [place], [place] [address] [place] [address] Elsie Dewey M.D. [address] [place] [address] documented as of this encounter Results * [...] Route: intravenous fludeoxyglucose F 18 injection SENIOR LIVING (FDG F-18),11.2 millicurie Procedure Note Corey Hillman [...] Route: intravenous fludeoxyglucose F 18 injection SENIOR LIVING (FDG F-18),11.2 millicurie IMPRESSION: 1. Interval increase [...] Laya MARIA NM PROCEDURES Final Resu lt documented in this encounter Visit Diagnoses Diagnosis Malignant Neoplasm Of Lung Left (HCC)- Primary Malignant Neoplasm Of Lung Right (HCC) Nodules Pulmonary Multiple Lymphadenopathy Mediastinum Malignant Neoplasm Of Lung Left (HCC) Malignant Neoplasm Of Lung Right (HCC) Nodules Pulmonary Multiple Lymphadenopathy Mediastinum documented in this encounter
--- OUTSIDE RECORDS SUMMARY | 2024-05-06 17:11 | XMS_ITS | Encounter Summary ---
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 [address] [place] [address] Phone: tel: fax: [facility] Region Referral ID Status Reason Start Date Expiration Date Visits Re quested Visits Authorized [id number] Closed 03/11/2024 03/11/2025 1 1 Reason for Visit * MRI/CAT/PET Scan (Routine) - Closed Specialty Diagnoses / Procedures Referred By Ervin frye Referred To Contact Diagnoses Malignant Neoplasm Of Lung Left (HCC) Malignant Neoplasm Of Lung Right (HCC) Nodules Pulmonary Multiple Lymphadenopathy Mediastinum Procedures PET CT Skull to Thigh FDG Laya Mitchell M.D. [address] [place] [address] Phone: tel: fax: [facility] Region Referral ID Status Reason Start Date Expiration Date Visits Re quested Visits Authorized [id number] Closed 03/11/2024 03/11/2025 1 1 Encounter Details Date Type Department Care Team (Latest Contact Info) Description 03/19/2024 10:39 AM CDT - 03/19/2024 11:59 PM CDT Hospital Encounter Department of Radiology in [place], [place] [address] [place] [address] Laya Mitchell M.D. [address] [place] [phone] Malignant Neoplasm Of Lung Left (HCC); Malignant Neoplasm Of Lung Right (HCC); Nodules Pulmonary Multiple; Lymphadenopathy Mediastinum Discharge Disposition: Home or Self Care Social History Tobacco Use Types Packs/Day Years Used Date Smoking Tobacco: Former Cigarettes 2.5 49.1 0 09/25/1962 - 10/19/2011 Smokeless Tobacco: Never Alcohol Use Standard Drinks/Week Comments Yes 1 (1 standard drink = 0.6 oz pur e alcohol) [facility] Utilities Answer Date Recorded In the past 12 months has e [employer], gas, oil, or water [employer] threatened to shut off services in your [...] How often do you attend buddhist or congregational serv ices? Never 10/31/2022 Do [...] your living situation today? I have a [facility] place to live 03/20/2024 Education Answer Date Recorded What is the highest level of school you have completed or the highest degree you have received? 10th grade 10/24/2020 Comments No Sex and Gender Information Value Date Recorded Sex Assigned at Female 04/17/2018 10:15 AM CDT Legal Sex Female 4:08 PM PLACING JUDGE Gender Identity Female 04/17/2018 10:15 AM CDT [...] 40 mg by mouth at bedtime. 05/28/2022 Kailyn Ellipta 100-62.5-25 mcg inhaler Inhale 1 puff daily. warfarin (COUMADIN) 2 mg tablet TAKE 1.5 TABLETS BY MOUTH EVERY E AND SAT; TAKE TWO TABLETS ALL OTHER DAYS OR DIRECTED 09/17/2022 documented as of this encounter Plan of Treatment Upcoming Encounters Date Type Department Care Team (Late st Contact Info) Description 07/07/2024 10:30 AM PLACING JUDGE Appointment Department of Radiology in [place], [place] [address], [place] [address] Laya Mitchell M.D. [address] [place] [phone] Discharge Disposition: Home or Self Care 07/07/2024 11:30 AM PLACING JUDGE Appointment Department of Radiology in [place], [place] [address] [address] Laya Mitchell M.D. [address] [place] [phone] 07/10/2024 2:30 PM PLACING JUDGE Appointment Department of Radiation Oncology in [place], [place] [address] [place] [address] Elsie Dewey M.D. [address] [place] [address] documented as of this encounter Procedures Procedure [...] RADIOPHARMACEUTICAL/MEDS: Route: intravenous fludeoxyglucose F 18 injection HALF-WAY (FDG F-18),11.2 millicurie Procedure Note Corey Hillman [...] RADIOPHARMACEUTICAL/MEDS: Route: intravenous fludeoxyglucose F 18 injection HALF-WAY (FDG F-18),11.2 millicurie IMPRESSION: 1. Interval increase [...] Dose Rate Site fludeoxyglucose F 18 injection HALF-WAY (FDG F-18) 11.2 millicurie, intravenous, Once, On Natali 03/19/24 at 1115, For 1 dose, Imaging Protocol Orders Given 03/19/2024 10:55 AM CDT 11.2 millicuries Right Antecubital documented in this encounter
--- OUTSIDE RECORDS SUMMARY | 2024-05-06 17:11 | XMS_ITS | Encounter Summary ---
Author Organization [facility] Address [address] [place] [address] Care Team Providers Care Imaging Scheduler Name Role Phone Unavailable Primary Care Provider Unavailabl e Reason for Referral * Radiation Therapy (Routine) - Closed Specialty Diagnoses / Procedures Referred By Ervin frye Referred To Contact Diagnoses Malignant Neoplasm Of Lung Right (HCC) Procedures Initial Rad Onc Treatment Planning CT Simulation without IV Contrast Elsie Dewey M.D. [address] [place] [address] Phone: tel: fax: [facility] Region Referral ID Status Reason Start Date Expiration Date Visits Re quested Visits Authorized [id number] Closed 03/20/2024 03/20/2025 1 1 Reason for Visit * Radiation Therapy (Routine) - Closed Specialty Diagnoses / Procedures Referred By Ervin frye Referred To Contact Diagnoses Malignant Neoplasm Of Lung Right (HCC) Procedures Initial Rad Onc Treatment Planning CT Simulation without IV Contrast Elsie Dewey M.D. [address] [place] [address] Phone: tel: fax: [facility] Region Referral ID Status Reason Start Date Expiration Date Visits Re quested Visits Authorized [id number] Closed 03/20/2024 03/20/2025 1 1 Encounter Details Date Type Department Care Team (Latest Contact Info) Description 03/24/2024 10:57 AM CDT - 03/25/2024 9:02 AM CDT Hospital Encounter Department of Radiation Oncology in [place], [place] [address] [place] [address] Elsei Dewey M.D. [address] [place] [address] Malignant Neoplasm Of Lung Right (HCC) Social History Tobacco Use Types Packs/Day Years Used Date Smoking Tobacco: Former Cigarettes 2.5 49.1 0 09/25/1962 - 10/19/2011 Smokeless Tobacco: Never Alcohol Use Standard Drinks/Week Comments Yes 1 (1 standard drink = 0.6 oz pur e alcohol) [facility] Utilities Answer Date Recorded In the past 12 months has e [employer], gas, oil, or water [employer] threatened to shut off services in your [...] How often do you attend taoist or presybeterian serv ices? Never 10/31/2022 Do you belong [...] your living situation today? I have a [facility] place to live 03/20/2024 Education Answer Date Recorded What is the highest level of school you have completed or the highest degree you have received? 10th grade 10/24/2020 Comments No Sex and Gender Information Value Date Recorded Sex Assigned at Female 04/17/2018 10:15 AM CDT Legal Sex Female 4:08 PM COLOR GRINDER Gender Identity Female 04/17/2018 10:15 AM CDT [...] planning. CT images were transferred to the InterResolve treatment planning system, after a reference isocenter was determined and marked. Segmentation and treatment planning will take place prior to treatment delivery. Patient set up and imaging was appropriate and completed without incident. Hull Molder use:No Cosigned by Elsie Dewey M.D. at 03/25/2024 9:01 AM CDT Associated attestation - Elsie Dewey M.D. - 03/25/2024 9:01 AM CDT I was present during all critical and eubanks portions of the procedure(s) and immediately available [facility] services the entire duration. See note for details. documented in this encounter Plan of Treatment Upcoming Encounters Date Type Department Care Team (Late st Contact Info) Description 07/07/2024 10:30 AM COLOR GRINDER Appointment Department of Radiology in [place], [place] [address] [place] [address] Laya Mitchell M.D. [address] [place] [address] Discharge Disposition: Home or Self Care 07/07/2024 11:30 AM COLOR GRINDER Appointment Department of Radiology in [place], [place] [address] [place] [address] Laya Mitchell M.D. [address] [place] [phone] 07/10/2024 2:30 PM COLOR GRINDER Appointment Department of Radiation Oncology in [place], [place] [address] [place] [address] Elsie Dewey M.D. [address] [place] [address] documented as of this encounter Procedures Procedure [...] ONCOLOGY ORDERA BLES Final Result REJI ortez documented in this encounter Visit Diagnoses Diagnosis Malignant Neoplasm Of Lung Right (HCC) documented in this encounter
--- OUTSIDE RECORDS SUMMARY | 2024-05-06 17:11 | XMS_ITS | Encounter Summary ---
Author Organization [facility] Address [address] [place] [address] Care Team Providers Care Human Relations Professor Name Role Phone Unavailable Primary Care Provider Unavailabl e Reason for Referral * Outpatient (Routine) - Closed Specialty Diagnoses / Procedures Referred By Contac t Referred To Contact Radiation Oncology Elsie Dewey M.D. [address] [place] [address] Phone: tel: fax: [facility] Region Referral ID Status Reason Start Date Expiration Date Visits Re quested Visits Authorized [id number] Closed 01/01/2024 07/02/2025 1 1 Reason for Visit * Outpatient (Routine) - Closed Specialty Diagnoses / Procedures Referred By Ervin frye Referred To Contact Radiation Oncology Elsie Dewey M.D. [address] [place] [address] Phone: tel: fax: [facility] Region Referral ID Status Reason Start Date Expiration Date Visits Re quested Visits Authorized [id number] Closed 01/01/2024 07/02/2025 1 1 Encounter Details Date Type Department Care Team (Latest Contact Info) Description 03/09/2024 2:34 PM CDT - 03/09/2024 4:32 PM CDT Hospital Encounter Department of Radiation Oncology in [place], [place] [address] [place] [address] Elsie Dewey M.D. [address] [place] [address] Malignant Neoplasm Of Lung Left (HCC) (Primary [...] How often do you attend holiness or adventism serv ices? Never 10/31/2022 Do [...] and heating? Not hard at all 10/31/2022 [facility] [place] of Occupat ional Health - Occupational Stress [...] AM CDT Legal Sex Female 4:08 PM BOTTOM SCRUBBER Gender Identity Female 04/17/2018 10:15 AM CDT Sexual Orientation Straight 04/17/2018 10 :15 AM CDT documented as of this encounter Last Filed Vital Signs Vital Sign Reading Time Taken Comments Blood Pressure 151/74 03/09/2024 2:50 PM CDT Pulse 78 03/09/2024 2:50 PM CDT Temperature 36.8 C (98.2 F) 03/09/2024 2:50 PM CDT Respiratory Rate - - Oxygen [...] new 5 millimeter solid nodule in the rightupper lobe is noted. This could be a mucus plug. Additional small ground-glass nodules in both lungs are stable and unchanged including a 13 x [...] with the two right lower nodules likely signs sales representative of low-grade adenocarcinoma. 14. April [...] APRN, Sylvia.N.PJessica, D.N.PJessica 03/09/2024 3:26 PM CDT [facility] [address] [place] [address] Cosigned by Elsie Dewey M.D. at 03/09/2024 [...] st Contact Info) Description 07/07/2024 10:30 AM BOTTOM SCRUBBER Appointment Department of Radiology in [place], [place] [address] [place] [address] Laya Mitchell M.D. [address] [place] [address] Discharge Disposition: Home or Self Care 07/07/2024 11:30 AM BOTTOM SCRUBBER Appointment Department of Radiology in [place], [place] [address] [place] [address] Laya Mitchell M.D. [address] [place] [address] 07/10/2024 2:30 PM BOTTOM SCRUBBER Appointment Department of Radiation Oncology in [place], [place] [address] [place] [address] Elsie Dewey M.D. [address] [place] [address] Scheduled Referrals Name Type Priority Associated Diagnoses Order Schedule Radiation Oncology office visit (clinic) Outpatient Referral Routine Once for 1 Occurrences starting 03/09/2024 until 03/09/2024 documented as of this encounter Visit Diagnoses Diagnosis Malignant Neoplasm Of Lung Left (HCC)- Primary Malignant Neoplasm Of Lung Right (HCC) documented in this encounter
--- OUTSIDE RECORDS SUMMARY | 2024-05-06 17:11 | XMS_ITS | Encounter Summary ---
Author Organization [facility] Address [address] [place] [address] Care Team Providers Care Self Propelled Mining Machine Operator Name Role Phone Unavailable Primary Care Provider Unavailabl e Encounter Details Date Type Department Care Team (Latest Contact Info) Description 03/30/2024 1:49 PM CDT - 03/30/2024 11:59 PM CDT Hospital Encounter Department of Radiation Oncology in [place], [place] [address] [place] [phone] Elsie Dewey M.D. [address] [place] [address] Discharge Disposition: Home or Self Care Social History Tobacco Use Types Packs/Day Years Used Date Smoking Tobacco: Former Cigarettes 2.5 49.1 0 09/25/1962 - 10/19/2011 Smokeless Tobacco: Never Alcohol Use Standard Drinks/Week Comments Yes 1 (1 standard drink = 0.6 oz pur e alcohol) [facility] Utilities Answer Date Recorded In the [...] How often do you attend taoism or mosque serv ices? Never 10/31/2022 Do you belong [...] and heating? Not hard at all 10/31/2022 [facility] of Occupat ional Health - Occupational Stress [...] your living situation today? I have a [facility] place to live 03/20/2024 Education Answer Date Recorded What is the highest level of school you have completed or the highest degree you have received? 10th grade 10/24/2020 Comments No Sex and Gender Information Value Date Recorded Sex Assigned at Female 04/17/2018 10:15 AM CDT Legal Sex Female 4:08 PM [employer] Gender Identity Female 04/17/2018 10:15 AM CDT [...] st Contact Info) Description 07/07/2024 10:30 AM [employer] Appointment Department of Radiology in [place], [place] [address] [place] [address] Laya Mitchell M.D. [address] [place] [phone] Discharge Disposition: Home or Self Care 07/07/2024 11:30 AM [employer] Appointment Department of Radiology in [place], [place] [address] [address] Laya Mitchell M.D. [address] [place] [address] 07/10/2024 2:30 PM [employer] Appointment Department of Radiation Oncology in [place], [place] [address] [place] [phone] Elsie Dewey M.D. [address] [place] [phone] documented as of this encounter Visit Diagnoses Not on filedocumented in this encounter
--- NOTE | 2024-05-06 19:00 | PM.IMHP1 ---
Hospitalist- H&P: HPI History of Present Illness Date Seen: 05/06/24 Chief complaint: Hcg low Narrative: Anila Richardson is a 73 year old female with past medical history of adeno carcinoma of the lung currently on immunotherapy, history of PE on anticoagulation, hypertension, hyperlipidemia, COPD, history of stroke, hypothyroidism who was here today for infusion as our infusion center and her labs showed a a quick drop in her hemoglobin, currently she is at 7.8 down from about 12 a month ago. Our transfusion nerse contacted her oncologist who states that her immunotherapy likely is not the cause for this anemia and suggested admission for observation and a CT scan. Patient denies any recent bleeding, she mentioned that her stool is dark but it is not black, did not notice any blood in the stool recently. She mentioned that when she had her stroke more than 10 years ago she was put on aspirin on top of her apixaban and at that time she started to have GI bleeding with black stool and once she stopped aspirin at that time her GI bleeding stopped. She has been on apixaban since she had her PE roughly around 2003 per the patient. Patient is hemodynamically stable at the ED, CTA abdomen and pelvis for GI bleed protocol was done and it did not show any active bleeding. At the ED they started her for packed RBCs blood transfusion and she was admitted to the floor for observation. Review of Systems Status of ROS: Reports: 6 or more systems reviewed and unremarkable except as noted in History and below [facility] Medical History Hx pulmonary embolism ?Z86.711 - Personal history of pulmonary embolism (ICD-10) History of endocarditis in adulthood ?Z86.79 - Personal history of other diseases of the circulatory system (ICD-10) Health care directive on file ?Z78.9 - Other specified health status (ICD-10) Vegetative endocarditis of mitral valve ?I33.0 - Acute and subacute infective endocarditis (ICD-10) Surgical History Hx of tubal ligation ?Z98.51 - Tubal ligation status (ICD-10) Social History Narrative: Social history is negative for smoking. She quit smoking in 2011 at the time she had her stroke. Prior to that she smoked at least for 50 years. Occasional alcohol intake. 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 What is your current living situation?: I presently have a place to live Problems where you live: no known problems Problems where you live details: N/A In the past 12 months, utilities in danger of being shut off: no In the past 12 mos, have been you worried that your food would run out before you had money to buy more?: never true In the past 12 mos, the food you bought just didn't last and you didn't have money to buy more?: never true Highest level of school completed/degree received: high school graduate Smoking Status: Former smoker How often do you have a drink containing alcohol: monthly or less How many standard drinks containing alcohol do you have on a typical day: 1 or 2 How often do you have six or more drinks on one occasion: Never AUDIT-C Alcohol total score: 1 Non-prescribed substance use: denies use Caffeine: Yes (coffee) How often does anyone, including family, friends and others, physically hurt you: never How often does anyone, including family, friends and others, insult or talk down to you: never How often does anyone, including family, friends and others, threaten you with harm: never How often does anyone, including family, friends and others, scream or curse at you: never service: No Meds Home Medications and Allergies Home Medications ?Medication ?Instructions ?Recorded ?Confirmed ?Type acetaminophen 500 mg tablet 1,000 mg PO Q6H PRN 09/11/23 04/06/24 History (Tylenol Extra Strength) albuterol sulfate 90 mcg/actuation 1 - 2 puff inhalation Q4H PRN 09/11/23 04/06/24 History aerosol inhaler wheezing cholecalciferol (vitamin D3) 10 10 mcg PO QDAY 09/11/23 04/06/24 History mcg (400 unit) tablet fluticasone fur. 100 mcg-umeclid 1 ea inhalation DAILY 09/11/23 04/06/24 History 62.5 mcg-vilant 25 mcg inhalat.powder (Trelegy Ellipta) levothyroxine 75 mcg tablet 75 mcg PO DAILY 09/11/23 04/06/24 History sertraline 50 mg tablet 50 mg PO DAILY 09/11/23 03/11/24 History simvastatin 40 mg tablet 40 mg PO QPM 09/11/23 04/06/24 History amino acid-hydrolyzed 1 ea PO DAILY 09/24/23 04/06/24 History collagen-whey 15 gram-100 kcal/30 mL oral liquid apixaban 5 mg tablet (Eliquis) 5 mg PO BID 10/29/23 04/06/24 History multivitamin with iron 1 tab PO QDAY 12/12/23 04/06/24 History antiarthritic combination no.2 900 mg PO 03/11/24 04/06/24 History mg tablet (glucosamine-chondroitin) Allergies Allergy/AdvReac Type Severity Reaction Status Date / Time aspirin Allergy Intermediate Unknown Verified 05/06/24 16:55 atenolol Allergy Intermediate psoriasis Verified 05/06/24 16:55 Penicillins Allergy Unknown Verified 05/06/24 16:55 Exam Narrative: Exam Narrative: Physical exam GENERAL: Comfortable, no acute distress. HEAD AND NECK: Atraumatic, normocephalic CARDIOVASCULAR: Tachycardic. Normal S1, S2. No murmurs. Right chest PermCath. RESPIRATORY: Clear to auscultation B/L. Good air entry B/L. No wheezes or rhonchi. GASTROINTESTINAL: Not distended, not tender to palpation. NEUROLOGY: Alert, awake, oriented X 3. PSYCH: Normal mood, normal affect. Const: Vital Signs, click to edit/add: Vital Signs - 24 hr 05/06/24 15:55 05/06/24 16:03 05/06/24 16:15 Temperature 98.7 F Pulse Rate 73 75 Pulse Rate [Left P ulse Oximeter] Pulse Rate [Pulse Oximeter] 74 Respiratory Rate 20 Blood Pressure Blood Pressure [Le ft Arm] Blood Pressure [Ri ght Upper Arm] 174/91 H Pulse Oximetry 90 95 97 Oxygen Delivery Me thod Room Air Room Air 05/06/24 16:29 05/06/24 16:30 05/06/24 16:32 Temperature Pulse Rate 74 73 72 Pulse Rate [Left P ulse Oximeter] Pulse Rate [Pulse Oximeter] Respiratory Rate Blood Pressure 156/94 H 161/82 H Blood Pressure [Le ft Arm] Blood Pressure [Ri ght Upper Arm] Pulse Oximetry 91 93 94 Oxygen Delivery Me thod Room Air Room Air Room Air 05/06/24 16:53 05/06/24 17:02 05/06/24 17:32 Temperature Pulse Rate 88 Pulse Rate [Left P ulse Oximeter] Pulse Rate [Pulse Oximeter] Respiratory Rate Blood Pressure 145/103 H 154/87 H Blood Pressure [Le ft Arm] Blood Pressure [Ri ght Upper Arm] Pulse Oximetry 94 Oxygen Delivery Me thod Room Air 05/06/24 18:37 Temperature 99.7 F H Pulse Rate Pulse Rate [Left P ulse Oximeter] 103 H Pulse Rate [Pulse Oximeter] Respiratory Rate 24 Blood Pressure Blood Pressure [Le ft Arm] 151/82 H Blood Pressure [Ri ght Upper Arm] Pulse Oximetry 93 Oxygen Delivery Me thod Room Air Hospitalist - H&P: Result Imaging CT scan - abdomen: Radiologist's impression: Study: CT-Abdomen/Pelvis Angio GI BLEED W/ 95CC ISOVUE 370-05/06/2024 4:58:42 PM Ordering Physician: Kelly Oro Final Report: INDICATION: LOW HGB, NO SOURCE BLEEDING, GI BLEED PROTOCOL. TECHNIQUE: CT abdomen and pelvis acquired without and with 100 cc Omnipaque 350 IV contrast. COMPARISON: CTA chest dated 04/01/2024. FINDINGS: GI tract is within normal limits in caliber. Colonic diverticulosis. There is no evidence of bowel obstruction, mass, or inflammation. The liver is normal in size, shape and attenuation. Unremarkable gallbladder. No biliary dilatation. Unremarkable spleen and adrenal glands. Scattered pancreatic calcifications, likely reflecting sequela of chronic pancreatitis. Left renal cysts and other bilateral renal subcentimeter cortical hypodensities, too small to characterize. 7.5 cm cystic focus along the posterior aspect of the uterus and left adnexa. No lymphadenopathy evident. No free air or significant free fluid. No definitively visualized suspicious focal bone lesions. Diffuse osseous demineralization. Multiple new right lung base nodules which has a relatively bilobar appearance and measures to 1.0 cm (). Partially redemonstrated previously visualized spiculated right lower lobe nodule. IMPRESSION: 1. No evidence of active hemorrhage in the abdomen or pelvis. 2. Multiple new pulmonary nodules measuring up to 1.0 cm in the partially visualized right lung base, concerning for worsening malignancy. This can be further evaluated with a dedicated CT chest. 3. There is 7.5 cm cystic focus along the posterior aspect of the uterus and left adnexa. This is incompletely evaluated on this examination, and could be further characterized with a nonemergent pelvic MRI without and with contrast. Assessment and Plan Assessment and plan (1) Anemia: Problem comment: -Hb currently she is at 7.8 down from about 12 a month ago. Our transfusion nerse contacted her oncologist who states that her immunotherapy likely is not the cause for this anemia and suggested admission for observation and a CT scan. -CTA abdomen and pelvis for GI bleed protocol was done and it did not show any active bleeding. -Give 2 packed RBCs blood transfusion -will order an iron panel, patient needs complete anemia workup as an outpatient including GI evaluation for GI bleeding. -Hold apixaban. Status: Acute (2) Adenocarcinoma of lung: Problem comment: -metastatic pulmonary adenocarcinoma, stage IIIA T1c N2 M0 -Plan of Tx: concurrent chemo XRT with carbo Taxol followed by adjuvant immunotherapy Status: Acute (3) History of GI bleed: Problem comment: Pt had stroke 2011, she was put on aspirin on top of her apixaban and at that time & started to have GI bleeding with black stool and once she stopped aspirin at that time her GI bleeding stopped. Patient was evaluated by rope silica machine operator at that time. - She has been on apixaban since she had her PE roughly around 2003 per the patient. Status: Acute (4) Hx pulmonary embolism: Problem comment: - She has been on anticoagulation since she had her PE roughly around 2003 per the patient. - currently on apixaban - hold apixaban for suspected GI bleed for now. Status: Acute (5) Maintenance antineoplastic immunotherapy: Status: Acute (6) Hyperlipidemia: Problem comment: on a statin Status: Acute (7) Hypertension: Status: Acute (8) COPD (chronic obstructive pulmonary disease): Problem comment: on inhalers Status: Acute (9) Hypothyroidism: Problem comment: On levothyroxine 75 mcg Status: Acute (10) History of stroke: Problem comment: 2011. secondary to endocarditis On a statin but not on aspirin or any antiplatelet, only on apixaban, aspirin was held in the past due to GI bleeding history. Status: Chronic (11) Uterine cyst: Problem comment: CT: There is 7.5 cm cystic focus along the posterior aspect of the uterus and left adnexa. This is incompletely evaluated on this examination, and could be further characterized with a nonemergent pelvic MRI without and with contrast. Status: Acute Total Time Spent Total Time Spent: Time spent: Today I spent 75 minutes seeing the patient, discussing the patient with ER staff, reviewing Expanse and EPIC notes/diagnostics, discussing the care plan with our care time that includes social work, PT/OT, pharmacy, RT, long-term and documenting my impressions and plan in the medical record.
[2024-05-06] MEDS: 0.9 % SODIUM CHLORIDE 500 ML 250 ML IV (20:26)
[2024-05-06] MEDS: SODIUM CHLORIDE 0.9 % (FLUSH) 10 ML SYRINGE 5 ML IVF (20:27)
[2024-05-07] VITALS (8 sets, daily range): BP systolic 125–151; BP diastolic 9–90; PULSE 77–88; RESP 15–20; TEMP 36.3–36.9; O2SAT 91–95; BMI 24.1
[2024-05-07] MEDS: LEVOTHYROXINE 75 MCG TABLET PO (05:51)
--- NOTE | 2024-05-07 06:57 | PC.NURSE ---
End of shift report [id number]: Pleasant and cooperative with cares. Alert and oriented x 4. Denies any pain, shortness of breath, nausea or vomiting. Tolerating blood transfusion of 2 units PRBC's, no adverse reaction during or after transfusion. History of CVA with right side affected, patient has mild weakness to right upper and lower extremities. Occasional slurring of speech when attempting to talk quickly, patient states that slurring is post CVA effect. Ambulates independentl. Port to right chest wall accessed while at [facility] for appointment, port patent and asymptomatic.
[2024-05-07 07:04] LABS: Basophils Absolute Auto 0.03 K/uL (0.00-0.30); Basophils Percent Auto 0.5 % (0.0-3.0); Eosinophils Absolute Auto 0.18 K/uL (0.00-0.50); Eosinophils Percent Auto 3.1 % (0.0-7.0); Hematocrit 30.6 % (33.0-51.0); Immature Granulocytes Abs Auto 0.02 K/uL (0.00-0.30); Immature Granulocytes Pct Auto 0.3 %; Immature Reticulocyte Fraction 29.1 % (3.0-15.9); Lymphocytes Percent Auto 17.9 % (20-44); Mean Corpuscular HGB Conc 33 gm/dL (32-36); Mean Corpuscular Hemoglobin 30 pg (26-34); Mean Corpuscular Volume 92 fL (80-100); Monocytes Percent Auto 8.8 % (0.0-11.0); Neutrophils Absolute Auto 4.03 K/uL (1.7-7.0); Neutrophils Percent Auto 69.4 % (42.0-72.0); Platelet Count* 198 K/uL (140-440); RDW Coefficient of Variation % 14.7 % (11.5-15.5); Red Blood Count 3.32 m/uL (4.00-5.20); Reticulocyte Hemoglobin Equivi 23.7 pg (29.0-35.0); White Blood Count* 5.81 K/uL (4.50-11.00)
[2024-05-07 07:06] LABS: Albumin* 3.6 g/dL (3.3-5.0); Chloride* 107 mmol/L (96-114)
[2024-05-07 07:07] LABS: Potassium* 3.7 mmol/L (3.6-5.1); Sodium* 137 mmol/L (135-149)
[2024-05-07 07:09] LABS: Alanine Aminotransferase* 11 U/L (4-35); Alkaline Phosphatase* 60 U/L (40-150); Anion Gap 6 mEq/L (7-15); Aspartate Amino Transferase* 23 U/L (12-35); Bilirubin Total* 0.7 mg/dL (0.1-1.5); Blood Urea Nitrogen* 31 mg/dL (7-30); Carbon Dioxide* 24 mmol/L (20-32); Creatinine* 0.9 mg/dL (0.5-1.5); Est. Creatinine Clearance* 39.04; Estimated Glomerular Filt Rate 67 ml/min; Glucose* 98 mg/dL (60-115); Total Protein* 6.3 g/dL (6.0-8.3)
[2024-05-07 07:10] LABS: Calcium* 8.8 mg/dL (8.4-10.6)
[2024-05-07 07:12] LABS: Iron* 94 ug/dL (37-170)
[2024-05-07 07:13] LABS: Slide Review Reflex No
[2024-05-07 07:21] LABS: Percent Iron Saturation 28 % (20-50); Total Iron Binding Capacity 333 ug/dL (265-497)
[2024-05-07 07:34] LABS: INR 1.05 (0.91-1.10); Prothrombin Time 14.4 Seconds
[2024-05-07 07:41] LABS: Partial Thromboplastin Time* 27 Seconds (23-33)
[2024-05-07 07:45] LABS: Ferritin* 11.1 ng/mL (11.1-264.0)
--- NOTE | 2024-05-07 10:54 | PM.DS1 ---
DS: Providers Provider Date Seen: 05/07/24 Date of admission: 05/06/24 18:25 Primary care physician: [facility] Admitting Clinician: Silvia Martin MD Attending Physician on discharge: Anderson Jiménez MD Date of Discharge: 05/07/24 DS: Diagnosis Discharge Diagnosis (1) Anemia: Status: Acute Problem details: Patient presented to oncology clinic with with a hemoglobin is 7.8, down from 12 1 month ago. She has had no apparent blood loss. Currently on durvalumab for adenocarcinoma of the lung. Did have chemotherapy with bone marrow suppression which ended in November 2023. Also had a history of a GI bleed many years ago well on warfarin plus aspirin. Extensive evaluation including upper and lower endoscopy and PillCam were negative. Aspirin was stopped. Retic count mildly increased. Peripheral smear, LDH, haptoglobin and follow-up hemoglobin pending (2) History of GI bleed: Status: Acute Problem details: Pt had stroke 2011, she was put on aspirin on top of her apixaban and at that time & started to have GI bleeding with black stool and once she stopped aspirin at that time her GI bleeding stopped. Patient was evaluated by marine radio installer and servicer at that time. Negative upper and lower endoscopy and PillCam according to patient report. - She has been on apixaban since she had her PE roughly around 2003 per the patient. (3) Adenocarcinoma of lung: Status: Acute Problem details: -metastatic pulmonary adenocarcinoma, stage IIIA T1c N2 M0 Previously on carboplatin and Taxol which ended in November 2023. Now only on immune therapy with durvalumab. (4) Hx pulmonary embolism: Status: Acute Problem details: - She has been on anticoagulation since she had her PE roughly around 2003 per the patient. - currently on apixaban - hold apixaban for suspected GI bleed for now. (5) Iron deficiency anemia: Status: Acute Problem details: Iron studies are normal. DS: Summary Hospital Course Hospital Course: 73-year-old female admitted to the hospital with anemia. Hemoglobin was 7.8 in oncology clinic today. Previously was 12. She has had no evidence of bleeding. No melanotic, maroon or bloody stools. She did have a previous GI bleed years ago while she was taking warfarin and aspirin. At that time she had melanotic stools and extensive GI workup for this. Workup was negative for pathology. She has been on apixaban more recently without aspirin and without evidence of bleeding. History of iron deficiency anemia but iron studies have been normal. Previous history of anemia related to chemotherapy, carboplatin and Taxol for adenocarcinoma of the lung. This therapy concluded in November 2023. Now on durvalumab, immune therapy not suspected to be causing bone marrow suppression. Stool guaiac negative in the hospital. Patient is feeling well today and very anxious to go home. Status at Discharge Functional status at discharge: independent ambulation Overall status at discharge: patient is back to baseline Time Spent with Patient Time attestation: Total time spent providing and/or coordinating discharge services: 40 minutes Time spent: Greater than 30 minutes Exam Narrative: Exam Narrative: She is alert and appears in no distress. Respirations are clear to auscultation. She has diminished breath sounds without wheezing rales or rhonchi. Cardiovascular: S1, S2, regular rate and rhythm. No murmur gallop or rub. Abdomen: Bowel sounds active. Abdomen is soft without tenderness or mass Const: Vital Signs, click to edit/add: Vital Signs - 24 hr 05/06/24 15:55 05/06/24 16:03 05/06/24 16:15 Temperature 98.7 F Pulse Rate 73 75 Pulse Rate [Left P ulse Oximeter] Pulse Rate [Pulse Oximeter] 74 Respiratory Rate 20 Blood Pressure Blood Pressure [Le ft Arm] Blood Pressure [Ri ght Upper Arm] 174/91 H Pulse Oximetry 90 95 97 Oxygen Delivery Me thod Room Air Room Air 05/06/24 16:29 05/06/24 16:30 05/06/24 16:32 Temperature Pulse Rate 74 73 72 Pulse Rate [Left P ulse Oximeter] Pulse Rate [Pulse Oximeter] Respiratory Rate Blood Pressure 156/94 H 161/82 H Blood Pressure [Le ft Arm] Blood Pressure [Ri ght Upper Arm] Pulse Oximetry 91 93 94 Oxygen Delivery Me thod Room Air Room Air Room Air 05/06/24 16:53 05/06/24 17:02 05/06/24 17:32 Temperature Pulse Rate 88 Pulse Rate [Left P ulse Oximeter] Pulse Rate [Pulse Oximeter] Respiratory Rate Blood Pressure 145/103 H 154/87 H Blood Pressure [Le ft Arm] Blood Pressure [Ri ght Upper Arm] Pulse Oximetry 94 Oxygen Delivery Me thod Room Air 05/06/24 18:37 05/06/24 19:50 05/06/24 20:15 Temperature 99.7 F H 98.7 F 99.2 F Pulse Rate 83 85 Pulse Rate [Left P ulse Oximeter] 103 H Pulse Rate [Pulse Oximeter] Respiratory Rate 24 20 18 Blood Pressure 127/80 127/80 Blood Pressure [Le ft Arm] 151/82 H Blood Pressure [Ri ght Upper Arm] Pulse Oximetry 93 92 94 Oxygen Delivery Me thod Room Air Room Air Room Air 05/06/24 20:45 05/06/24 21:15 05/06/24 21:45 Temperature 98.7 F 98.5 F 98.2 F Pulse Rate 82 81 80 Pulse Rate [Left P ulse Oximeter] Pulse Rate [Pulse Oximeter] Respiratory Rate 18 17 17 Blood Pressure 125/75 140/75 H 138/77 Blood Pressure [Le ft Arm] Blood Pressure [Ri ght Upper Arm] Pulse Oximetry 93 93 92 Oxygen Delivery Mi thod Room Air Room Air Room Air 05/06/24 22:15 05/06/24 22:50 05/06/24 23:00 Temperature 98.2 F 98.2 F Pulse Rate 79 82 84 Pulse Rate [Left P ulse Oximeter] Pulse Rate [Pulse Oximeter] Respiratory Rate 18 16 Blood Pressure 142/78 H 143/81 H Blood Pressure [Le ft Arm] Blood Pressure [Ri ght Upper Arm] Pulse Oximetry 93 94 Oxygen Delivery Mi thod Room Air Room Air 05/06/24 23:00 05/06/24 23:00 05/06/24 23:05 Temperature 98.4 F 98.4 F Pulse Rate 88 Pulse Rate [Left P ulse Oximeter] 82 88 Pulse Rate [Pulse Oximeter] Respiratory Rate 16 19 19 Blood Pressure 134/80 Blood Pressure [Le ft Arm] 134/80 Blood Pressure [Ri ght Upper Arm] Pulse Oximetry 92 92 Oxygen Delivery Me thod Room Air Room Air 05/06/24 23:30 05/07/24 00:00 05/07/24 00:30 Temperature 98.1 F 98.2 F 98.1 F Pulse Rate 84 84 84 Pulse Rate [Left P ulse Oximeter] Pulse Rate [Pulse Oximeter] Respiratory Rate 15 15 16 Blood Pressure 140/76 H 140/75 H 125/67 Blood Pressure [Le ft Arm] Blood Pressure [Ri ght Upper Arm] Pulse Oximetry 92 91 91 Oxygen Delivery Me thod Room Air Room Air Room Air 05/07/24 01:00 05/07/24 01:17 05/07/24 02:17 Temperature 98.4 F 98.4 F 97.6 F Pulse Rate 85 84 88 Pulse Rate [Left P ulse Oximeter] Pulse Rate [Pulse Oximeter] Respiratory Rate 15 16 20 Blood Pressure 128/73 140/67 H 147/84 H Blood Pressure [Le ft Arm] Blood Pressure [Ri ght Upper Arm] Pulse Oximetry 91 92 91 Oxygen Delivery Me thod Room Air Room Air Room Air 05/07/24 03:00 05/07/24 07:00 05/07/24 07:00 Temperature 97.6 F Pulse Rate 77 Pulse Rate [Left P ulse Oximeter] 88 77 Pulse Rate [Pulse Oximeter] Respiratory Rate 20 18 Blood Pressure Blood Pressure [Le ft Arm] 147/84 H Blood Pressure [Ri ght Upper Arm] Pulse Oximetry 91 Oxygen Delivery Me thod Room Air 05/07/24 07:00 Temperature Pulse Rate Pulse Rate [Left P ulse Oximeter] 77 Pulse Rate [Pulse Oximeter] Respiratory Rate 18 Blood Pressure Blood Pressure [Le ft Arm] 151/90 H Blood Pressure [Ri ght Upper Arm] Pulse Oximetry 95 Oxygen Delivery Me thod Room Air Documenting provider has reviewed patient's vital signs: yes DS: Data Data Completed and Pending Labs on day of discharge: Labs from last 24 hours 05/07/24 05/06/24 06:40 13:05 WBC 5.81 RBC 3.32 L Hgb 10.0 L Hct 30.6 L MCV 92 MCH 30 MCHC 33 RDW Coeff of Lili 14.7 Plt Count 198 Neut % (Auto) 69.4 Lymph % (Auto) 17.9 L [place] % (Auto) 8.8 Eos % (Auto) 3.1 Baso % (Auto) 0.5 Neut # (Auto) 4.03 Lymph # (Auto) 1.00 [place] # (Auto) 0.50 Eos # (Auto) 0.18 Baso # (Auto) 0.03 Abs Immat Gran (auto) 0.02 Imm/Tot Granulo (auto) 0.3 Absolute Retic 0.10 H Percent Retic 3.0 H Immature Retic Fraction 29.1 H Retic Hgb Equivalent 23.7 L INR 1.05 APTT 27 Sodium 137 Potassium 3.7 Chloride 107 Carbon Dioxide 24 Anion Gap 6 L BUN 31 H Creatinine 0.9 Estimated Creat Clear 39.04 Estimated GFR 67 Glucose 98 Calcium 8.8 Iron 94 TIBC 333 % Saturation 28 Ferritin 11.1 Total Bilirubin 0.7 AST 23 ALT 11 Alkaline Phosphatase 60 Total Protein 6.3 Albumin 3.6 Blood Type AB Positive Antibody Screen NEGATIVE Crossmatch (AHG) See Detail Imaging CT scan - abdomen: Radiologist's impression: INDICATION: LOW HGB, NO SOURCE BLEEDING, GI BLEED PROTOCOL. TECHNIQUE: CT abdomen and pelvis acquired without and with 100 cc Omnipaque 350 IV contrast. COMPARISON: CTA chest dated 04/01/2024. FINDINGS: GI tract is within normal limits in caliber. Colonic diverticulosis. There is no evidence of bowel obstruction, mass, or inflammation. The liver is normal in size, shape and attenuation. Unremarkable gallbladder. No biliary dilatation. Unremarkable spleen and adrenal glands. Scattered pancreatic calcifications, likely reflecting sequela of chronic pancreatitis. Left renal cysts and other bilateral renal subcentimeter cortical hypodensities, too small to characterize. 7.5 cm cystic focus along the posterior aspect of the uterus and left adnexa. No lymphadenopathy evident. No free air or significant free fluid. No definitively visualized suspicious focal bone lesions. Diffuse osseous demineralization. Multiple new right lung base nodules which has a relatively bilobar appearance and measures to 1.0 cm (). Partially redemonstrated previously visualized spiculated right lower lobe nodule. IMPRESSION: 1. No evidence of active hemorrhage in the abdomen or pelvis. 2. Multiple new pulmonary nodules measuring up to 1.0 cm in the partially visualized right lung base, concerning for worsening malignancy. This can be further evaluated with a dedicated CT chest. 3. There is 7.5 cm cystic focus along the posterior aspect of the uterus and left adnexa. This is incompletely evaluated on this examination, and could be further characterized with a nonemergent pelvic MRI without and with contrast. Discharge Plan Discharge Disposition: Home, Self-Care Date of Admission: 05/06/24 18:25 Attending Provider on Discharge: Srinivasa Jiménez Primary Care Provider: [facility] Condition: Improved Anticipated Discharge Date/Time: 05/07/24 11:04 Discharge Medications: Continued Eliquis 5 mg tablet 5 mg PO BID multivitamin with iron Tablet 1 tab PO QDAY simvastatin 40 mg tablet 40 mg PO HS sertraline 50 mg tablet 50 mg PO DAILY levothyroxine 75 mcg tablet 75 mcg PO DAILY Trelegy Ellipta 100-62.5-25 mcg blister with device 1 ea inhalation DAILY albuterol sulfate 90 mcg/actuation HFA aerosol inhaler 1 - 2 puff inhalation Q4H PRN (Reason: wheezing) Discharge Orders: Discharge Order (Routine); Ordered 05/07/24 Ordered By: Srinivasa Jiménez Follow Up Appointments: [facility] [Primary Care Provider] - (Follow-up in 4 days, SaturdayMay 11, at previously scheduled appointment. Check CBC on Saturday) Forms: [employer] Info Instructions
[2024-05-07 11:56] LABS: Lactate Dehydrogenase* 167 U/L (120-246)
[2024-05-07] MEDS: HEPARIN 500 UNIT/5 ML SYRINGE IVF (12:02)
[2024-05-07] MEDS: SODIUM CHLORIDE 0.9 % (FLUSH) 10 ML SYRINGE 5 ML IVF (12:03)
--- NOTE | 2024-05-07 14:40 | PC.NURSE ---
Nursing discharge note: Pt has been A&O, afebrile and VSS today. Independent in her room. Denies any pain, nausea or dizziness. Port in right chest de-accessed without complications. Pt discharged home accompanied by spouse at 1215 via wheelchair.
[2024-05-08 19:26] LABS: Haptoglobin 153 mg/dL (30-200)
== END 2024-05-07 12:15 | disposition home or self-care (01) ==
LOC: ED 17:08 → MEDSURG 18:25
PROVIDERS: Family Medicine; Admitting Provider Student in an Organized Health Care Education/Training Program; Emergency Provider Family Medicine; PCP Internal Medicine; Visit Provider Student in an Organized Health Care Education/Training Program
DX: D64.9 Anemia, unspecified (principal); C34.91 Malignant neoplasm of unspecified part of right bronchus or lung; R91.8 Other nonspecific abnormal finding of lung field; E78.5 Hyperlipidemia, unspecified; I10 Essential (primary) hypertension; J44.9 Chronic obstructive pulmonary disease, unspecified; E03.9 Hypothyroidism, unspecified; Z86.2 Personal history of diseases of the blood and blood-forming organs and certain disorders involving the immune mechanism; Z79.01 Long term (current) use of anticoagulants; Z79.60 Long term (current) use of unspecified immunomodulators and immunosuppressants; N85.8 Other specified noninflammatory disorders of uterus; Z86.711 Personal history of pulmonary embolism; Z87.19 Personal history of other diseases of the digestive system; Z87.891 Personal history of nicotine dependence; Z86.79 Personal history of other diseases of the circulatory system
CPT/HCPCS: 36415; 36430; 74174; 80053; 82270; 82728; 83010; 83540; 83550; 83615; 84439; 84480; 85018; 85025; 85045; 85610; 85730; 86850; 86900; 86901; 86922; 96360; 96361; 96413; 99215; 99284; 99285; G0378; G0463; A9270; J1642; J7030; J7050; J9173; P9016; Q9967

== ENCOUNTER 2024-05-21 14:41 | Emergency (ER) | payer MEDICARE, BC, SELFPAY ==
[2024-05-21 14:47] VITALS: BP 134/76; PULSE 84; RESP 18; TEMP 37.1; O2SAT 96; BMI 23.0
--- NOTE | 2024-05-21 15:06 | ED.GENADULT ---
HPI - General Adult General Chief complaint: Weakness Stated complaint: Hgl low previously, weak, lightheaded Time Seen by Provider: 05/21/24 14:55 History of Present Illness HPI narrative: This 73-year-old female comes in reporting some lightheadedness in weakness and fatigue. She has a history of anemia and did receive a blood transfusion a couple weeks ago. 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 Since then she is on immune therapy for maintenance. She does not report any blood loss. She did have her stool exam and a couple weeks ago and there was no evidence of hit in blood. She is on Eliquis. Related Data Home Medications ?Medication ?Instructions ?Recorded ?Confirmed albuterol sulfate 90 mcg/actuation 1 - 2 puff inhalation Q4H PRN 09/11/23 05/21/24 aerosol inhaler wheezing fluticasone fur. 100 mcg-umeclid 1 ea inhalation DAILY 09/11/23 05/21/24 62.5 mcg-vilant 25 mcg inhalat.powder (Trelegy Ellipta) sertraline 50 mg tablet 50 mg PO DAILY 09/11/23 05/21/24 simvastatin 40 mg tablet 40 mg PO HS 09/11/23 05/21/24 apixaban 5 mg tablet (Eliquis) 5 mg PO BID 10/29/23 05/21/24 Previous Rx's ?Medication ?Instructions ?Recorded levothyroxine 88 mcg tablet 88 mcg PO QDAY #30 tabs 05/11/24 Allergies Allergy/AdvReac Type Severity Reaction Status Date / Time aspirin Allergy Intermediate Unknown Verified 05/21/24 14:53 atenolol Allergy Intermediate psoriasis Verified 05/21/24 14:53 Penicillins Allergy Unknown Verified 05/21/24 14:53 Review of Systems Status of ROS: Reports: 10 or more systems reviewed and unremarkable except as noted in History and below Narrative: Constitutional: No fevers, no weight gain or loss. Eyes: No discharge. No vision changes. HENT: No congestion, no sore throat, no ear pain. Cardiovascular: No chest pain, no palpitations. Respiratory: No shortness of breath, no wheezes, no cough. Gastrointestinal: No abdominal pain, no vomiting, no diarrhea. Genitourinary: No dysuria, no hematuria. Musculoskeletal: Normal range of motion. Skin: No rashes, no pruritis. Neurological: No sensory change, speech change. Endo/Heme/Allergies: No bruising or bleeding. No polydipsia. Pysch: no suicidality, no anxiety, no insomnia. All other systems reviewed and are negative. [facility] Medical History Hx pulmonary embolism ?Z86.711 - Personal history of pulmonary embolism (ICD-10) History of endocarditis in adulthood ?Z86.79 - Personal history of other diseases of the circulatory system (ICD-10) Health care directive on file ?Z78.9 - Other specified health status (ICD-10) Vegetative endocarditis of mitral valve ?I33.0 - Acute and subacute infective endocarditis (ICD-10) Surgical History Hx of tubal ligation ?Z98.51 - Tubal ligation status (ICD-10) Social History Narrative: Social history is negative for smoking. She quit smoking in 2011 at the time she had her stroke. Prior to that she smoked at least for 50 years. Occasional alcohol intake. 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 What is your current living situation?: I presently have a place to live Problems where you live: no known problems Problems where you live details: N/A In the past 12 months, utilities in danger of being shut off: no In the past 12 mos, have been you worried that your food would run out before you had money to buy more?: never true In the past 12 mos, the food you bought just didn't last and you didn't have money to buy more?: never true Highest level of school completed/degree received: high school graduate Smoking Status: Former smoker Do you use any of these nicotine containing products: None How often do you have a drink containing alcohol: monthly or less How many standard drinks containing alcohol do you have on a typical day: 1 or 2 How often do you have six or more drinks on one occasion: Never AUDIT-C Alcohol total score: 1 Non-prescribed substance use: denies use Caffeine: Yes (coffee) How often does anyone, including family, friends and others, physically hurt you: never How often does anyone, including family, friends and others, insult or talk down to you: never How often does anyone, including family, friends and others, threaten you with harm: never How often does anyone, including family, friends and others, scream or curse at you: never service: No Exam Narrative: Exam Narrative: Constitutional: Well-developed, well-nourished, no acute distress. HEENT: Normocephalic, atraumatic. Neck: Normal range of motion. Nontender. Supple. Heart: Regular. No murmurs. Tachycardia. Intact distal pulses. Lungs: Clear to auscultation. No chest discomfort. No wheezes, rhonchi, or rales. Abdomen: Normal bowel sounds. Nontender. No rebound tenderness. Genitalia: Deferred. Back: No midline tenderness. Normal range of motion. Extremities: Normal range of motion. No injury. Skin: Intact. No rash. Warm. No erythema or pallor. Neurologic: No altered sensation. No weakness. Alert and oriented. Psychiatric: No suicidality. No anxiety or depression. No insomnia. Nursing notes and vitals signs are reviewed. Const: Vital Signs, click to edit/add: Vital Signs - 24 hr 05/21/24 14:47 Temperature 98.7 F Pulse Rate [Right Pulse Oximeter] 84 Respiratory Rate 18 Blood Pressure [Ri ght Upper Arm] 134/76 Pulse Oximetry 96 Oxygen Delivery Me thod Room Air Course Vital Signs Vital signs: Initial Vital Signs Temperature 98.7 F 05/21/24 14:47 Temperature Source Temporal Artery Scan 05/21/24 14:47 Pulse Rate 84 05/21/24 14:47 Pulse Rhythm Regular 05/21/24 14:47 Pulse Strength 3+ Normal 05/21/24 14:47 Respiratory Rate 18 05/21/24 14:47 Blood Pressure 134/76 05/21/24 14:47 Blood Pressure Mean 95 05/21/24 14:47 Blood Pressure Position Sitting 05/21/24 14:47 Pulse Oximetry 96 05/21/24 14:47 Oxygen Delivery Method Room Air 05/21/24 14:47 Vital Signs Temperature 98.7 F 05/21/24 14:47 Pulse Rate 84 05/21/24 14:47 Respiratory Rate 18 05/21/24 14:47 Blood Pressure 134/76 05/21/24 14:47 Pulse Oximetry 96 05/21/24 14:47 Oxygen Delivery Method Room Air 05/21/24 14:47 Temperature 98.7 F 05/21/24 14:47 Pulse Rate 84 05/21/24 14:47 Respiratory Rate 18 05/21/24 14:47 Blood Pressure 134/76 05/21/24 14:47 Pulse Oximetry 96 05/21/24 14:47 Oxygen Delivery Method Room Air 05/21/24 14:47 Medications Administered Medications: Discontinued Medications Generic Name Dose Route Start Last Admin Trade Name Freq PRN Reason Stop Dose Admin Heparin Sodium (Porcine) 500 unit 05/21/24 15:44 05/21/24 15:48 Heparin 500 Unit/5 Ml Syringe IVF 05/21/24 15:45 500 unit ONCE ONE Administration Medical Decision Making MDM Narrative Medical decision making narrative: This patient comes in reporting some lightheadedness and weakness in wonders if she is anemic again. She has a baseline anemia that has a hemoglobin around 10. A couple weeks ago it had dropped down to 7.8. She received a couple units of blood in her hemoglobin bounced back up to around 10. She arrives here with normal vital signs and does not complain of any pain or sign of blood loss. She does have increased heart rate on arrival however this decreased at the time of my exam. Labs are acquired and results are pending at the end of my shift. The oncoming ER physician will attend to results and proceed accordingly. Discharge Plan Discharge Clinical Impression: Anemia Qualifiers: Anemia type: unspecified type Qualified Code(s): D64.9 - Anemia, unspecified Prescriptions: No Action Eliquis 5 mg tablet 5 mg PO BID simvastatin 40 mg tablet 40 mg PO HS sertraline 50 mg tablet 50 mg PO DAILY Trelegy Ellipta 100-62.5-25 mcg blister with device 1 ea inhalation DAILY albuterol sulfate 90 mcg/actuation HFA aerosol inhaler 1 - 2 puff inhalation Q4H PRN (Reason: wheezing) levothyroxine 88 mcg tablet 88 mcg PO QDAY Qty: 30 1RF Follow Up/Referrals: [facility] [Primary Care Provider] -
--- OUTSIDE RECORDS SUMMARY | 2024-05-21 15:44 | XMS_ITS | Clinical Summary ---
Author Organization [facility] Address [place], [place] [address] Care Team Providers Care Desktop Support Manager Name Role Phone Marbella Heart DO Primary Care Provider Allergies Active Allergy Reactions [...] mouth. Act thanh apixaban (ELIQUIS) 5 mg tabletIndications:Cer ebrovascular accident (CVA) due to embolism of left middle cerebral artery (HC),Adenocarcinoma of left lung (HC),Anticoagulation monitoring, INR range 2-3 Take 1 Tablet (5 mg) by mouth two times daily. 180 Tablet 3 04/10/2024 Active albuterol HFA (PRO-AIR; VENTOLIN; PROVENTIL) 90 mcg/actuation inhalerIndications:Ch ronic obstructive pulmonary disease, unspecified COPD type (HC) Inhale 1-2 Puffs by mouth every 4 hours if needed for Shortness Of Breath or Wheezing (cough). 1 Each 2 04/10/2024 Active fluticasone xhv-sznjrrtqucag-xlrf nterol (Trelegy Ellipta) 100-62.5-25 mcg inhalerIndications:Ch ronic obstructive pulmonary disease, unspecified COPD type (HC) Inhale 1 Puff by mouth once daily. 180 Each 3 04/10/2024 Active levothyroxine (SYNTHROID) 75 mcg tabletIndications:Hyp othyroidism (acquired) Take 1 Tablet (75 mcg) by mouth once daily. 90 Tablet 3 04/10/2024 Active sertraline (ZOLOFT) 50 mg tabletIndications:Dep ression, unspecified depression type Take 1 Tablet (50 mg) by mouth once daily. 90 Tablet 3 04/10/2024 Active simvastatin (ZOCOR) 40 mg tabletIndications:Hyp erlipidemia, unspecified hyperlipidemia type Take 1 Tablet (40 mg) by mouth at bedtime. 90 Tablet 3 04/10/2024 Active Active Problems Problem Noted Date Diagnosed Date Adenocarcinoma of left lung 07/09/2018 Wears glasses 03/13/2018 Overview (03/13/2018): Follows at [facility]. Hypothyroidism (acquired) 09/09/2017 Hyperlipidemia 08/25/2014 Depression 08/25/2014 COPD (chronic obstructive pulmonary disease) 04/2015 Cerebrovascular accident (CV A) due to embolism of left middle cerebral artery 10/04/2011 Resolved Problems Problem Noted Date Diagnosed Date Resolved Date Pneumonia of right middle lo be due to infectious organism 08/15/2015 12/30/2017 HTN (hypertension) 03/21/2012 Anticoagulation monitoring, INR range 2-3 10/04/2011 10/11/2023 Overview (11/06/2017): Ok for every 6 weeks. See telephone enc dated 08/25/14. Anticoagulation JOSE- 11/06/17 WANTS TO STAY 6 WKS INR NURSE VISITS Verbal messages may be left for anticoagulation result, dosing, and instructions. Nina Mcmanus RN .................... 11/06/2017 2:05 PM Encounters Date Type Department Care Team Description 05/11/2024 8:10 AM [facility] S[employer]OTHER Office Visit [address] [address] Marbella Heart DO Hospital F/U (Recheck hgb, was given 2 pints of blood) 05/11/2024 Travel 05/07/2024 Travel 05/06/[address] [facility] Scanner 1 scan: (1-Ord) [facility], CT ANGIO ABD PEL GI BLEED , 05/06/2024 04/10/2024 10:50 AM CDT Office Visit [address] [place] [address] Marbella Heart DO Medicare ANNUAL (subsequent) Visit (no concerns) 04/09/2024 Travel 04/01/[address] [facility] Scanner 1 scan: (1-Ord) [facility], CT ANGIO CHEST PE PROTOCOL , 04/01/2024 03/05/[address] [facility] Scanner 1 scan: (1-Ord) [place], CT CHEST W CONTRAST, 03/05/2024 02/28/[address] [place] [address] Marbella Heart DO Refill Request (Simvastatin) from Last 3 Months Immunizations Name Administration Dates Next Due COVID-19 VACCINE SPIKEVAX (M ODERNA 50MCG/0.5ML) 12YO+ PFS 03/28/2023 COVID-19 vaccine (GameSkinny-Bio NTech 30mcg/0.3mL) 12YO+ BIVALENT PF, MDV 04/02/2022 COVID-19 vaccine (GameSkinny-Bio NTech 30mcg/0.3mL) PF, MDV 04/20/2021,09/10/2020,08/20/2020 Influenza, High-dose [...] Relation Name Comments Heart Disease Brother 2 [place] Cancer-breast Maternal Aunt Diabetes Maternal Grandmother Heart [...] Sign Reading Time Taken Comments Blood Pressure 126/74 05/11/2024 8:22 AM [facility]OTHER Pulse 76 05/11/2024 8:22 AM [facility]OTHER Temperature 37.1 C (98.8 F) 03/29/2023 8:58 AM CDT Respiratory Rate 18 05/11/2024 8:22 AM [facility] S[facility]OTHER Oxygen Saturation 96% 05/11/2024 8:22 AM [facility] S[employer]OTHER Inhaled Oxygen Concentration - - Weight 59.6 kg (131 lb 6.4 oz) 05/11/2024 8:22 A M [facility] Height 156.5 cm (5' 1.61) 04/10/2024 11:29 AM C DT Body Mass Index 24.34 04/10/2024 11:29 AM CDT Plan of Treatment Health Maintenance [...] 10/30/2021, Additional history exists Fecal testing sDNA-FIT ([place]) for age 45-75 09/27/2024 09/27/2021 BMI [...] Procedure Name Priority Date/Time Associated Diagnosis Comments CBC WITH AUTO DIFFERENTIAL STAT 05/11/2024 9:25 AM [facility]OTHER Anemia of unknown etiology Adenocarcinoma of left lung (HC) CBC WITH AUTO DIFFERENTIAL STAT 05/11/2024 9:25 AM [facility]OTHER Anemia of unknown etiology Adenocarcinoma of left lung (HC) FERRITIN Routine 05/11/2024 9:21 AM [facility]OTHER Anemia of unknown etiology Adenocarcinoma of left lung (HC) IRON PLUS IRON BINDING CAP Routine 05/11/2024 9:21 AM [facility]OTHER Anemia of unknown etiology Adenocarcinoma of left lung (HC) RETICULOCYTES Routine 05/11/2024 9:21 AM [facility]OTHER Anemia of unknown etiology SCAN-CT INTERPRETATION 4 12:00 AM [facility]OTHER SCAN-ANGIOGRAM 04/01/2024 12:00 AM CDT SCAN-CT INTERPRETATION 4 12:[address] CHEST WO KELLIE 2023 2:09 PM [facility]OTHER Acute left-sided thoracic back pain Adenocarcinoma of left lung (HC) LIPID PANEL W REFLEX MEASURED LDL Routine 03/28/2023 1:16 PM CDT HTN (hypertension) Cerebrovascular accident (CVA) due to embolism of left middle cerebral artery (HC) Other hyperlipidemia XR MAMMO BILAT SCREENING Routine 04/23/2022 10:11 AM [facility]OTHER Encounter for screening mammogram for malignant neoplasm of breast FECAL DNA (AKA COLOGUARD) Routine 09/27/2021 12:00 AM CDT Screening for colon cancer ANTI HCV Routine 03/13/2019 3:42 PM CDT Need for hepatitis C screening test XR DXA BONE DENSITY 2 SITES AXIAL Routine 09/10/2016 2:54 PM CDT Asymptomatic postmenopausal state from Last 3 Months or Most Recently Relevant to Health Maintenance Results * (ABNORMAL) CBC WITH AUTO DIFFERENTIAL (05/11/2024 9:25 AM [facility]) WHITE BLOOD COUNT 5.5 4.5 - 11.0 thou/cu mm 05/11/2024 9:55 AM [facility] RED BLOOD COUNT 3.40(L) 4.00 - 5.20 mil/cu mm 05/11/2024 9:55 AM [facility] HEMOGLOBIN 10.1(L) 12.0 - 16.0 g/dL 05/11/2024 9:55 AM [facility] HEMATOCRIT 32.3(L) 33.0 - 51.0 % 05/11/2024 9:55 AM [facility] MCV 95 80 - 100 fL 05/11/2024 9:55 AM [facility] MCH 29.7 26.0 - 34.0 pg 05/11/2024 9:55 AM [facility] MCHC 31.3(L) 32.0 - 36.0 g/dL 05/11/2024 9:55 AM [facility] RDW 14.6 11.5 - 15.5 % 05/11/2024 9:55 AM [facility] PLATELET COUNT 241 140 - 440 thou/cu mm 05/11/2024 9:55 AM [facility] MPV 9.4 6.5 - 11.0 fL 05/11/2024 9:55 AM [facility] % NEUT 69.9 % 05/11/2024 9:55 AM [facility] % LYMPH 16.2 % 05/11/2024 9:55 AM [facility] % MONO 8.6 % 05/11/2024 9:55 AM [facility] % EOS 5.1 % 05/11/2024 9:55 AM [facility] % BASO 0.2 % 05/11/2024 9:55 AM [facility] ABSOLUTE NEUTROPHILS 3.8 1.7 - 7.0 thou/cu mm 05/11/2024 9:55 AM [facility] ABSOLUTE LYMPHOCYTES 0.9 0.9 - 2.9 thou/cu mm 05/11/2024 9:55 AM [facility] ABSOLUTE MONOCYTES 0.5 <0.9 thou/cu mm 05/11/2024 9:55 AM [facility] ABSOLUTE EOSINOPHILS 0.3 <0.5 thou/cu mm 05/11/2024 9:55 AM [facility] ABSOLUTE BASOPHILS 0.0 <0.3 thou/cu mm 05/11/2024 9:55 AM [facility] Blood BLOOD SPECIMEN / Unknown [facility] / Unknown 05/11/2024 9:25 AM [facility] 05/11/2024 9:46 AM [facility] Marbella Heart DO HEMATOLOGY [facility] [address] [place] [address] * (ABNORMAL) IRON PLUS IRON BINDING CAP (05/11/2024 9:21 AM [facility]) IRON, TOTAL 30(L) 45 - 160 mcg/dL [facility] IRON BINDING CAPACITY 386 250 - 450 mcg/dL (calc) [facility] % SATURATION 8(L) 16 - 45 % (calc) [facility] Blood BLOOD SPECIMEN / Unknown 05/11/2024 9:21 AM [facility]OTHER 05/11/2024 9:22 AM [facility] [employer]OTHER Marbella Heart DO CHEMISTRY [employer] [facility] [address] [place] [address], [facility] [address] [place] [address] * (ABNORMAL) RETICULOCYTES (05/11/2024 9:21 AM [facility]OTHER) Pathologist [facility] RETICULOCYTE COUNT, AUTOMATED 2.8 % [facility] RETICULOCYTE, ABSOLUTE 96,040(H) 20,000 - 80,000 cells/uL [facility] Blood BLOOD SPECIMEN / Unknown 05/11/2024 9:21 AM [facility]OTHER 05/11/2024 9:22 AM [facility] [employer]OTHER Marbella Heart DO HEMATOLOGY [facility] [address] [place] [address], [place] [phone] [facility] [address] [place] [address] * (ABNORMAL) FERRITIN (05/11/2024 9:21 AM [facility]OTHER) Pathologist [facility] FERRITIN 14(L) 16 - 288 ng/mL [facility] Blood BLOOD SPECIMEN / Unknown 05/11/2024 9:21 AM [facility]OTHER 05/11/2024 9:22 AM [facility]OTHER Marbella Heart DO CHEMISTRY [facility] [address] [facility] [place] [address], [place] [phone] [facility] [address] [place] [address] * SCAN-CT INTERPRETATION (05/06/2024 12:00 AM [facility]OTHER) Only the most recent of2 resultswithin the time period is included. Anatomical Region Laterality Modality Other Scanner OTHER * SCAN-ANGIOGRAM (04/01/2024 12:00 AM CDT) Anatomical Region Laterality Modality Other Scanner OTHER * CT CHEST WO (2023 2:09 PM [facility]MOOTHER) Anatomical Region Laterality Modality CHEST, THORAX, HEART Computed To mography 06/22/2023 1:16 AM [facility] Addenda Addendum by Janna Wood MD on 07/17/2023 11:15 AM [facility]OTHER For Patients: As a result of the [...] 11:14AM (Electronically Signed) Impressions 06/22/2023 1:16 AM [facility]OTHER 1. No etiology seen to explain left [...] AM (Electronically Signed) Narrative 06/22/2023 1:16 AM [facility] S[facility]OTHER For Patients: As a result of the [...] W REFLEX MEASURED LDL (03/28/2023 1:16 PM T) CHOLESTEROL,TOTAL 167 100 - 199 mg/dL 03/28/2023 2:56 PM [facility] Comment: Cholesterol, Total Reference Ranges Desirable <200 mg/dL Borderline 200-239 mg/dL High >=240 mg/dL TRIGLYCERIDES 150(H) <150 mg/dL 03/28/2023 2:56 PM T [facility] HDL CHOLESTEROL 66 >40 mg/dL 2:56 PM [facility] NON-HDL CHOLESTEROL 101 <145 mg/dl 03/28/2023 2:56 PM [facility] CHOL/HDL RATIO 2.53 <4.50 03/28/2023 2:56 PM [facility] LDL CHOLESTEROL 71 <=130 mg/dL 03/28/2023 2:56 PM [facility] VLDL CHOLESTEROL 30 <=30 mg/dL 03/28/2023 2:56 PM CDT [facility] PROVIDER ORDERED STATUS RANDOM 03/28/2023 2:56 PM CDT [facility] Blood BLOOD SPECIMEN / Unknown Venipuncture / Unknown 03/28/2023 1:16 PM CDT 03/28/2023 1:17 PM CDT Marbella Heart DO CHEMISTRY [facility] [address] [place] [address] * XR MAMMO BILAT SCREENING (04/23/2022 10:11 AM [facility]OTHER) Anatomical Region Laterality Modality BREASTS, Breast Left, Breast Right Bilateral Mammography Impressions 04/23/2022 11:55 AM [facility]OTHER There is no radiographic evidence for malignancy. Recommend annual mammograms. MAMMOGRAM ASSESSMENT: ACR 1 Negative PATIENTS: You will also receive a letter with your examination results in an easy to read format. If you have questions about your results, please contact your referring provider. Narrative 04/23/2022 11:55 AM [facility] S[facility]OTHER For Patients: As a result of the Century Cures Act, medical imaging exams and procedure reports are released immediately into your electronic medical record. You may view this report before your referring provider. If you have questions, please contact your health care provider. XR MAMMO BILAT SCREENING [[id number]] CLINICAL HISTORY: This is an asymptomatic 71 [...] thanh Non-React thanh 03/13/2019 11:18 PM CDT [facility] Comment:Antibodies to HCV no t detected; does not exclude the possibility of exposure to HCV. Blood BLOOD SPECIMEN / Unknown Venipuncture / Unknown 03/13/2019 3:42 PM CDT 03/13/2019 3:42 PM CDT Marbella Heart DO SEND OUTS [facility] [address] [place] [address], * XR DXA BONE DENSITY 2 SITES AXIAL (09/10/2016 2:54 PM CDT) Anatomical Region Laterality Modality Spine, HIPS, HIPL, HIPR Bone Den sitometry Narrative 09/12/2016 8:48 AM CDT Please see scanned document for results of this study. Marbella Heart DO DEXA from Last 3 Months or Most Recently Relevant to Health Maintenance Advance Directives Documents on File Type Date Recorded Patient Community Ambassador Expl anation Healthcare Directive 09/17/2023 024 Healthcare Directive 06/30/2012 2:01 PM AD SHAFEFR DIRECTIVE, 06/30/2012 Care Teams Desktop Support Manager Relationship Specialty Start Date End Date Marbella Heart DO [address] [place] [address] LENI Maurice [address] PCP - General Internal Medicine 08/25/14
--- OUTSIDE RECORDS SUMMARY | 2024-05-21 15:45 | XMS_ITS | Encounter Summary ---
Author Organization [facility] Address [address] [place] [address] Care Team Providers Care Electroneurodiagnostic Technician Name Role Phone Unavailable Primary Care Provider Unavailabl e Encounter Details Date Type Department Care Team (Latest Contact Info) Description 04/03/2024 12:06 PM CDT - 04/03/2024 11:59 PM CDT Hospital Encounter Department of Radiation Oncology in [place], [place] [address] [place] [phone] Elsie Dewey M.D. [address] [place] [address] Discharge Disposition: Home or Self Care Social History Tobacco Use Types Packs/Day Years Used Date Smoking Tobacco: Former Cigarettes 2.5 49.1 0 09/25/1962 - 10/19/2011 Smokeless Tobacco: Never Alcohol Use Standard Drinks/Week Comments Yes 1 (1 standard drink = 0.6 oz pur e alcohol) [facility] Utilities Answer Date Recorded In the past [...] How often do you attend confucianist or zoroastrian serv ices? Never 10/31/2022 Do [...] and heating? Not hard at all 10/31/2022 [facility] - Occupational Stress [...] your living situation today? [facility] 03/20/2024 Education Answer Date Recorded What is the highest level of school you have completed or the highest degree you have received? 10th grade 10/24/2020 Comments No Sex and Gender Information Value Date Recorded Sex Assigned at Female 04/17/2018 10:15 AM CDT Legal Sex Female 4:08 PM [employer] Gender Identity Female 04/17/2018 10:15 AM [...] st Contact Info) Description 07/07/2024 10:30 AM [employer]ER Appointment Department of Radiology in [place], [place] [address] [place] [address] Laya Mitchell M.D. [address] [place] [phone] Discharge Disposition: Home or Self Care 07/07/2024 11:30 AM [employer]ER Appointment Department of Radiology in [place], [place] [address] [address] Laya Mitchell M.D. [address] [place] [address] 07/10/2024 2:30 PM [employer]ER Appointment Department of Radiation Oncology in [place], [place] [address] [place] [phone] Elsie Dewey M.D. [address] [place] [address] documented as of this encounter Visit Diagnoses Not on filedocumented in this encounter
--- OUTSIDE RECORDS SUMMARY | 2024-05-21 15:45 | XMS_ITS | Referral Summary ---
Author Organization [facility] Address [address] [place] [address] Care Team Providers Care Merchant Tailor Name Role Phone Unavailable Primary Care Provider Unavailabl e Source Comments Patient records contain information from all sites at [facility]. For routine questions regarding patient records, call [phone] during business hours, M-F 8:00 AM - 5:00 PM Central Time. Record requests for emergency care only can be directed to [phone] at any time.[facility] Encounters Date Type Department Care Team Description 04/06/2024 Orders Only Department of Oncology in [place], [place] [address] [place] [address] Laya Mitchell M.D. 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 04/03/2024 12:06 PM CDT - 04/03/2024 11:59 PM CDT Hospital Encounter Department of Radiation Oncology in [address] [address] Elsie Dewey M.D. Discharge Disposition: Home or Self Care 04/01/2024 1:31 PM CDT - 04/02/2024 12:19 PM CDT Hospital Encounter Department of Radiation Oncology in [address] [address] Elsie Dewey M.D. Malignant Neoplasm Of Lung Right (HCC) 04/01/2024 2:15 PM CDT - 04/01/2024 11:59 PM CDT Hospital Encounter Department of Radiation Oncology in [address] [address] Elsie Dewey M.D. Discharge Disposition: Home or Self Care 04/01/2024 Clinical Communication Department of Radiation Oncology in [address] [address] Elsie Dewey M.D. 03/30/2024 1:49 PM CDT - 03/30/2024 11:59 PM CDT Hospital Encounter Department of Radiation Oncology in [address] [address] Elsie Dewey M.D. Discharge Disposition: Home or Self Care 03/24/2024 10:57 AM CDT - 03/25/2024 9:02 AM CDT Hospital Encounter Department of Radiation Oncology in [address] [address] Elsie Dewey M.D. Malignant Neoplasm Of Lung Right (HCC) 03/24/2024 10:26 AM CDT - 03/24/2024 10:56 AM CDT Hospital Encounter Department of Radiation Oncology in [address] [address] Elsie Dewey M.D. 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 Malignant Neoplasm Of Lung Left (HCC); Malignant Neoplasm Of Lung Right (HCC); Nodules Pulmonary Multiple; Lymphadenopathy Mediastinum Discharge Disposition: Home or Self Care 03/11/2024 Orders Only Department of Oncology in [place], [place] [address] [place] [address] Laya Mitchell M.D. 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 Malignant Neoplasm Of Lung [...] drink = 0.6 oz pur e alcohol) [facility] Utilities Answer Date Recorded In the past 12 months has [facility] [employer], gas, oil, or water [employer] threatened to shut off services in your [...] declined 10/31/2022 How often do you attend religious or synagogue serv ices? Never 10/31/2022 Do you belong to any clubs o r organizations such as religious groups, unions, fraternal or athletic groups, or [...] and heating? Not hard at all 10/31/2022 [facility] [place] of Occupat ional Health - Occupational Stress [...] your living situation today? I have a [facility] place to live 03/20/2024 Education Answer Date Recorded What is the highest level of school you have completed or the highest degree you have received? 10th grade 10/24/2020 Comments No Sex and Gender Information Value Date Recorded Sex Assigned at Female 04/17/2018 10:15 AM CDT Legal Sex Female 4:08 PM CLAY MOLDER Gender Identity Female 04/17/2018 10:15 AM CDT [...] st Contact Info) Description 07/07/2024 10:30 AM CLAY MOLDER Appointment Department of Radiology in [place], [place] [address] [place] [address] Laya Mitchell M.D. [address] [place] [address] Discharge Disposition: Home or Self Care 07/07/2024 11:30 AM CLAY MOLDER Appointment Department of Radiology in [place], [place] [address] [place] [address] Laya Mitchell M.D. [address] [facility] [place] [phone] 07/10/2024 2:30 PM CLAY MOLDER Appointment Department of Radiation Oncology in [place], [place] [address] [place] [address] Elsie Dewey M.D. [address] [place] [address] Procedures Procedure Name Priority Date/Time Associated Diagnosis Comments ARIA COURSE COMPLETE TREATMENT INFORMATION Routine 04/03/2024 12:43 PM CDT [facility]ILY TREATMENT INFORMATION Routine 04/03/2024 12:43 PM CDT [facility] DAILY TREATMENT INFORMATION Routine 04/01/2024 4:25 PM CDT [facility] DAILY TREATMENT INFORMATION Routine 03/30/2024 2:27 PM [...] Elapsed Days 4 MENDOZA ARIA Reference Point [id number] MENDOZA ARIA Dosage Given to Date cGy 5400 MENDOZA ARIA Plan ID [id number] rR MENDOZA ARIA Fractions Treated to Date 3 MENDOZA ARIA Planned Total Fractions 3 MENDOZA ARIA Prescribed Dose Per Fraction 1800 MENDOZA ARIA Prescription Dose in cGy 5400 MENDOZA ARIA Plan Primary Reference Point [id number] MENDOZA ARIA 04/03/2024 12:4 3 PM CDT [...] Elapsed Days 4 MENDOZA ARIA Reference Point [id number] MENDOZA ARIA Dosage Given to Date cGy 5400 MENDOZA ARIA Session Dosage Given 1800 MENDOZA ARIA Plan ID [id number] rR MENDOZA ARIA Fractions Treated to Date 3 MENDOZA ARIA Planned Total Fractions 3 MENDOZA ARIA Prescribed Dose Per Fraction 1800 MENDOZA ARIA Prescription Dose in cGy 5400 MENDOZA ARIA Plan Primary Reference Point [id number] [facility] 04/03/2024 12:4 3 PM CDT us [...] ORDERA BLES Final Result Performing Organization Address City/[facility] Co de Phone Number REJI SANDOVAL na [...] RADIOPHARMACEUTICAL/MEDS: Route: intravenous fludeoxyglucose F 18 injection MCC (FDG F-18),11.2 millicurie Procedure Note Corey Hillman [...] RADIOPHARMACEUTICAL/MEDS: Route: intravenous fludeoxyglucose F 18 injection MCC (FDG F-18),11.2 millicurie IMPRESSION: 1. Interval increase [...] CT Body (03/05/2024 1:40 PM CDT) Narrative [facility] - 03/06/2024 1:36 PM CDT This order [...] System IMG CT PROCEDURES Final R esult IIAZ NA * (ABNORMAL) Comprehensive Metabolic Panel (09/04/2023 [...] C.N.P., D.N.P. LAB BLOOD ADD-ON Final Result [facility] [address] [place] [address], [facility] DTL 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 See document viewer. Healthcare Agents on File Name Relationship Healthcare Agent Relationship Communication Dario [place] Spouse Health Care Agent Anita Fuentes Daughter First Alterna te Health Care Agent
--- OUTSIDE RECORDS SUMMARY | 2024-05-21 15:45 | XMS_ITS | Encounter Summary ---
Author Organization [facility] Address [address] [place] [address] Care Team Providers Care Obgyn Nurse Name Role Phone Unavailable Primary Care Provider Unavailabl e Reason for Referral * Outpatient (Routine) - Authorized Specialty Diagnoses / Procedures Referred By Contac t Referred To Contact Radiation Oncology Elsie Dewey M.D. [address] [place] [address] Phone: tel: fax: [facility] Region Referral ID Status Reason Start Date Expiration Date V isits Requested Visits Authorized [id number] Authorized 04/02/2024 10/02/2025 1 1 * MRI/CAT/PET Scan (Routine) - Authorized Specialty Diagnoses / Procedures Referred By Contac t Referred To Contact Radiology Diagnoses Malignant Neoplasm Of Lung Right (HCC) Procedures CT Chest without IV Contrast Elsie Dewey M.D. [address] [place] [address] Phone: tel: fax: [facility] Region Referral ID Status Reason Start Date Expiration Date V isits Requested Visits Authorized [id number] Authorized 04/02/2024 04/02/2025 1 1 * Radiation Therapy (Routine) - Authorized Specialty Diagnoses / Procedures Referred By Ervin frye Referred To Contact Diagnoses Malignant Neoplasm Of Lung Right (HCC) Procedures Management Visit Elsie Dewey M.D. [address] [place] [address] Phone: tel: fax: [facility] Region Referral ID Status Reason Start Date Expiration Date V isits Requested Visits Authorized [id number] Authorized 03/20/2024 03/20/2025 10 10 Reason for Visit * Radiation Therapy (Routine) - Authorized Specialty Diagnoses / Procedures Referred By Ervin frye Referred To Contact Diagnoses Malignant Neoplasm Of Lung Right (HCC) Procedures Management Visit Elsie Dewey M.D. [address] [place] [address] Phone: tel: fax: [facility] Region Referral ID Status Reason Start Date Expiration Date V isits Requested Visits Authorized [id number] Authorized 03/20/2024 03/20/2025 10 10 Encounter Details Date Type Department Care Team (Latest Contact Info) Description 04/01/2024 1:31 PM CDT - 04/02/2024 12:19 PM CDT Hospital Encounter Department of Radiation Oncology in [place], [place] [address] [place] [phone] Elsie Dewey M.D. [address] [place] [address] Malignant Neoplasm Of Lung Right (HCC) Social History Tobacco Use Types Packs/Day Years Used Date Smoking Tobacco: Former Cigarettes 2.5 49.1 0 09/25/1962 - 10/19/2011 Smokeless Tobacco: Never Alcohol Use Standard Drinks/Week Comments Yes 1 (1 standard drink = 0.6 oz pur e alcohol) [facility] Utilities Answer Date Recorded In the past 12 months has th e electric, gas, oil, or water [employer] threatened to shut off services in your [...] How often do you attend scientology or baptism serv ices? Never 10/31/2022 Do [...] and heating? Not hard at all 10/31/2022 [facility] [place] of Occupat ional Health - Occupational Stress [...] your living situation today? I have a [facility] place to live 03/20/2024 Education Answer Date Recorded What is the highest level of school you have completed or the highest degree you have received? 10th grade 10/24/2020 Comments No Sex and Gender Information Value Date Recorded Sex Assigned at Female 04/17/2018 10:15 AM CDT Legal Sex Female 4:08 PM SUPERVISOR COREMAKER Gender Identity Female 04/17/2018 10:15 AM CDT [...] (cGy) First Treatment Last Treatment Elapsed Days [id number] 2 / 3 1800 3600 5400 03/30/2024 [...] st Contact Info) Description 07/07/2024 10:30 AM SUPERVISOR COREMAKER Appointment Department of Radiology in [place], [place] [address] [address] Laya Mitchell M.D. [address] [place] [address] Discharge Disposition: Home or Self Care 07/07/2024 11:30 AM SUPERVISOR COREMAKER Appointment Department of Radiology in [place], [place] [address] [address] Laya Mitchell M.D. [address] [place] [address] 07/10/2024 2:30 PM SUPERVISOR COREMAKER Appointment Department of Radiation Oncology in [place], [place] [address] [place] [address] Elsie Dewey M.D. [address] [place] [address] Scheduled Orders Name Type Priority Associated Diagnoses [...]
--- OUTSIDE RECORDS SUMMARY | 2024-05-21 15:45 | XMS_ITS | Clinical Summary ---
Author Organization [facility] Address [address] [place] [address] Care Team Providers Care Performing Arts Road Manager Name Role Phone Unavailable Primary Care Provider Unavailabl e Source Comments Patient records contain information from all sites at [facility]. For routine questions regarding patient records, call [phone] during business hours, M-F 8:00 AM - 5:00 PM Central Time. Record requests for emergency care only can be directed to [phone] at any time.[facility] Allergies Active Allergy Reactions Criticality Noted Date [...] Only Department of Oncology in [place] [address] [place] [address] Laya Mitchell M.D. 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 Discharge Disposition: Home or Self Care 04/03/2024 Documentation Department of Radiation Oncology in [address] [address] Elsie Dewey M.D. 04/01/2024 2:15 PM CDT - 04/01/2024 11:59 PM CDT Hospital Encounter Department of Radiation Oncology in [address] [address] Elsie Dewey M.D. Discharge Disposition: Home or Self Care 04/01/2024 1:31 PM CDT - 04/02/2024 12:19 PM CDT Hospital Encounter Department of Radiation Oncology in [address] [address] Elsie Dewey M.D. Malignant Neoplasm Of Lung Right (HCC) 04/01/2024 Clinical Communication Department of Radiation Oncology in [address] [address] Elsie Dewey M.D. 03/30/2024 1:49 PM CDT - 03/30/2024 11:59 PM CDT Hospital Encounter Department of Radiation Oncology in [address] [address] Elsie Dewey M.D. Discharge Disposition: Home or Self Care 03/24/2024 10:57 AM CDT - 03/25/2024 9:02 AM CDT Hospital Encounter Department of Radiation Oncology in [address] [address] Elsie Dewey M.D. Malignant Neoplasm Of Lung Right (HCC) 03/24/2024 10:26 AM CDT - 03/24/2024 10:56 AM CDT Hospital Encounter Department of Radiation Oncology in [address] [address] Elsie Dewey M.D. 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 Malignant Neoplasm Of Lung Left (HCC); Malignant Neoplasm Of Lung Right (HCC); Nodules Pulmonary Multiple; Lymphadenopathy Mediastinum Discharge Disposition: Home or Self Care 03/11/2024 Orders Only Department of Oncology in [place], [place] [address] [place] [address] Laya Mitchell M.D. 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 Malignant Neoplasm Of Lung [...] 0.6 oz pur e alcohol) [facility] Utilities Answer Date Recorded In the past 12 months has e [employer], gas, oil, or water [employer] threatened to shut off services in your [...] How often do you attend scientology or druze serv ices? Never 10/31/2022 Do [...] and heating? Not hard at all 10/31/2022 [facility] [place] of Occupat ional Health - Occupational Stress [...] your living situation today? I have a [facility] place to live 03/20/2024 Education Answer Date Recorded What is the highest level of school you have completed or the highest degree you have received? 10th grade 10/24/2020 Comments No Sex and Gender Information Value Date Recorded Sex Assigned at Female 04/17/2018 10:15 AM CDT Legal Sex Female 4:08 PM PLAN NURSE Gender Identity Female 04/17/2018 10:15 AM [...] st Contact Info) Description 07/07/2024 10:30 AM PLAN NURSE Appointment Department of Radiology in [place], [place] [address] [place] [address] Laya Mitchell M.D. [address] [place] [phone] Discharge Disposition: Home or Self Care 07/07/2024 11:30 AM PLAN NURSE Appointment Department of Radiology in [place], [place] [address] [place] [address] Laya Mitchell M.D. [address] [place] [address] 07/10/2024 2:30 PM PLAN NURSE Appointment Department of Radiation Oncology in [place], [place] [address] [place] [address] Elsie Dewey M.D. [address] [place] [address] Health Maintenance Due Date Last Done Comments [...] Elapsed Days 4 MENDOZA ARIA Reference Point [id number] MENDOZA ARIA Dosage Given to Date cGy 5400 MENDOZA ARIA Plan ID [id number] rR MENDOZA ARIA Fractions Treated to Date 3 MENDOZA ARIA Planned Total Fractions 3 MENDOZA ARIA Prescribed Dose Per Fraction 1800 MENDOZA ARIA Prescription Dose in cGy 5400 MENDOZA ARIA Plan Primary Reference Point [id number] MENDOZA ARIA 04/03/2024 12:4 3 PM CDT [...] Elapsed Days 4 MENDOZA ARIA Reference Point [id number] MENDOZA ARIA Dosage Given to Date cGy 5400 MENDOZA ARIA Session Dosage Given 1800 MENDOZA ARIA Plan ID [id number] MENDOZA ARIA Fractions Treated to Date 3 MENDOZA ARIA Planned Total Fractions 3 MENDOZA ARIA Prescribed Dose Per Fraction 1800 MENDOZA ARIA Prescription Dose in cGy 5400 MENDOZA ARIA Plan Primary Reference Point [id number] MENDOZA ARIA 04/03/2024 12:4 3 PM CDT [...] RADIOPHARMACEUTICAL/MEDS: Route: intravenous fludeoxyglucose F 18 injection [facility] HOME (FDG F-18),11.2 millicurie Procedure Note Corey Hillman [...] RADIOPHARMACEUTICAL/MEDS: Route: intravenous fludeoxyglucose F 18 injection [facility] HOME (FDG F-18),11.2 millicurie IMPRESSION: 1. Interval increase [...] CT Body (03/05/2024 1:40 PM CDT) Narrative [facility] - 03/06/2024 1:36 PM CDT This [...] C.N.P., D.N.P. 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 See document viewer. Healthcare Agents on File Name Relationship Healthcare Agent Relationship Communication Dario [place] Spouse Health Care Agent Anita Fuentes Daughter First Alterna te Health Care Agent
--- OUTSIDE RECORDS SUMMARY | 2024-05-21 15:45 | XMS_ITS ---
Author Organization [facility] Address [address] [place] [address] Care Team Providers Care Rim Buster Name Role Phone Unavailable Unavailable Unavailable Surgery Details Not on file Complications Check Surgery Details section. Procedure Estimated Blood Loss Check Surgery Details section. Procedure Findings Check Surgery Details section. Procedure Specimens Taken Check Surgery Details section.
--- OUTSIDE RECORDS SUMMARY | 2024-05-21 15:45 | XMS_ITS | Encounter Summary ---
Author Organization [facility] Address [address] [place] [address] Care Team Providers Care Medical Oncologist Name Role Phone Unavailable Primary Care Provider Unavailabl e Encounter Details Date Type Department Care Team (Latest Contact Info) Description 04/01/2024 2:15 PM CDT - 04/01/2024 11:59 PM CDT Hospital Encounter Department of Radiation Oncology in [place], [place] [address] [place] [phone] Elsie Dewey M.D. [address] [place] [address] Discharge Disposition: Home or Self Care Social [...] declined 10/31/2022 How often do you attend yarsani or baptism serv ices? Never 10/31/2022 Do you belong to any clubs o r organizations such as yarsani groups, unions, fraternal or athletic groups, or [...] and heating? Not hard at all 10/31/2022 [facility] [place] of Occupat ional Health - Occupational Stress [...] your living situation today? I have a [facility] place to live 03/20/2024 Education Answer Date Recorded What is the highest level of school you have completed or the highest degree you have received? 10th grade 10/24/2020 Comments No Sex and Gender Information Value Date Recorded Sex Assigned at Female 04/17/2018 10:15 AM CDT Legal Sex Female 4:08 PM FINANCE ATTORNEY Gender Identity Female 04/17/2018 10:15 AM CDT [...] st Contact Info) Description 07/07/2024 10:30 AM FINANCE ATTORNEY Appointment Department of Radiology in [place], [place] [address] [place] [address] Laya Mitchell M.D. [address] [place] [phone] Discharge Disposition: Home or Self Care 07/07/2024 11:30 AM FINANCE ATTORNEY Appointment Department of Radiology in [place], [place] [address] [address] Laya Mitchell M.D. [address] [place] [address] 07/10/2024 2:30 PM FINANCE ATTORNEY Appointment Department of Radiation Oncology in [place], [place] [address] [place] [phone] Elsie Dewey M.D. [address] [place] [address] documented as of this encounter Visit Diagnoses Not on filedocumented in this encounter
--- OUTSIDE RECORDS SUMMARY | 2024-05-21 15:45 | XMS_ITS | Encounter Summary ---
Author Organization [facility] Address [address] [place] [address] Care Team Providers Care Therapeutic Program Worker Name Role Phone Unavailable Primary Care Provider Unavailabl e Encounter Details Date Type Department Care Team (Late st Contact Info) Description 04/03/2024 Documentation Department of Radiation Oncology in [place], [place] [address] [place] [phone] Elsie Dewey M.D. [address] [place] [phone] Social History Tobacco Use Types Packs/Day Years Used Date Smoking Tobacco: Former Cigarettes 2.5 49.1 0 09/25/1962 - 10/19/2011 Smokeless Tobacco: Never Alcohol Use Standard Drinks/Week Comments Yes 1 (1 standard drink = 0.6 oz pur e alcohol) [facility] Utilities Answer Date Recorded In the [...] How often do you attend sabianism or gnosticism serv ices? Never 10/31/2022 Do you belong [...] and heating? Not hard at all 10/31/2022 [facility] of Occupat ional Health - [...] your living situation today? I have a [facility] place to live 03/20/2024 Education Answer Date Recorded What is the highest level of school you have completed or the highest degree you have received? 10th grade 10/24/2020 Comments No Sex and Gender Information Value Date Recorded Sex Assigned at Female 04/17/2018 10:15 AM CDT Legal Sex Female 4:08 PM TOOL MAKER Gender Identity Female 04/17/2018 10:15 AM CDT [...] (cGy) First Treatment Last Treatment Elapsed Days [id number] 3 1800 [id number] [id number] 03/30/2024 04/03/2024 4 [...] Kirsten Bella R.N., 04/08/2024 12:22 PM CDT [facility] [address] [place] [id number] Cosigned by Elsie Dewey M.D. at 04/08/2024 12:41 PM CDT documented in this encounter Plan of Treatment Upcoming Encounters Date Type Department Care Team (Late st Contact Info) Description 07/07/2024 10:30 AM TOOL MAKER Appointment Department of Radiology in [place], [place] [address] [address] Laya Mitchell M.D. 404 [place] [phone] Discharge Disposition: Home or Self Care 07/07/2024 11:30 AM TOOL MAKER Appointment Department of Radiology in [place], [place] [address] [address] Laya Mitchell M.D. 404 [place] [phone] 07/10/2024 2:30 PM TOOL MAKER Appointment Department of Radiation Oncology in [place], [place] [address] [place] [phone] Elsie Dewey M.D. [address] [place] [address] documented as of this encounter Visit Diagnoses Diagnosis Malignant Neoplasm Of Lung Right (HCC)- Primary documented in this encounter
--- OUTSIDE RECORDS SUMMARY | 2024-05-21 15:45 | XMS_ITS | Encounter Summary ---
Author Organization [facility] Address [address] [place] [address] Care Team Providers Care Propellant Assembler Name Role Phone Unavailable Primary Care Provider Unavailabl e Reason for Referral * MRI/CAT/PET Scan (Routine) - Authorized Specialty Diagnoses / Procedures Referred By Ervin frye Referred To Contact Radiology Diagnoses Malignant Neoplasm Of Lung Left (HCC) Procedures MR Brain without and with IV Contrast Laya Mitchell M.D. [address] [place] [address] Phone: tel: fax: [facility] Region Referral ID Status Reason Start Date Expiration Date V isits Requested Visits Authorized [id number] Authorized 04/06/2024 04/06/2025 1 1 * MRI/CAT/PET Scan (Routine) - Authorized Specialty Diagnoses / Procedures Referred By Contfely t Referred To Contact Diagnoses Malignant Neoplasm Of Lung Left (HCC) Procedures PET CT Skull to Thigh FDG Laya Mitchell M.D. [address] [place] [address] Phone: tel: fax: [facility] Region Referral ID Status Reason Start Date Expiration Date V isits Requested Visits Authorized [id number] Authorized 04/06/2024 04/06/2025 1 1 Encounter Details Date Type Department Care Team (Late st Contact Info) Description 04/06/2024 Orders Only Department of Oncology in [place], [place] [address] [place] [phone] Laya Mitchell M.D. [address] [place] [phone] Malignant Neoplasm Of Lung Left (HCC) (Primary Dx) Social History Tobacco Use Types Packs/Day Years Used Date Smoking Tobacco: Former Cigarettes 2.5 49.1 0 09/25/1962 - 10/19/2011 Smokeless Tobacco: Never Alcohol Use Standard Drinks/Week Comments Yes 1 (1 standard drink = 0.6 oz pur e alcohol) [facility] Utilities Answer Date Recorded In the past 12 months has e [employer], gas, oil, or water [employer] threatened to shut off services in your [...] How often do you attend confucianist or scientology serv ices? Never 10/31/2022 Do [...] heating? Not hard at all 10/31/2022 [facility] of Occupat ional Health - Occupational [...] your living situation today? I have a [facility] place to live 03/20/2024 Education Answer Date Recorded What is the highest level of school you have completed or the highest degree you have received? 10th grade 10/24/2020 Comments No Sex and Gender Information Value Date Recorded Sex Assigned at Female 04/17/2018 10:15 AM CDT Legal Sex Female 4:08 PM HAND SALTER Gender Identity Female 04/17/2018 10:15 AM CDT Sexual Orientation Straight 04/17/2018 10 :15 AM CDT documented as of this encounter Plan of Treatment Upcoming Encounters Date Type Department Care Team (Late st Contact Info) Description 07/07/2024 10:30 AM HAND SALTER Appointment Department of Radiology in [place], [place] [address] [address] Laya Mitchell M.D. 404 [place] [phone] Discharge Disposition: Home or Self Care 07/07/2024 11:30 AM HAND SALTER Appointment Department of Radiology in [place], [place] [address] [place] [address] Laya Mitchell M.D. [address] [place] [phone] 07/10/2024 2:30 PM HAND SALTER Appointment Department of Radiation Oncology in [place], [place] [address] [place] [phone] Elsei Dewey M.D. 200 [place] [address] Scheduled Orders Name Type Priority Associated Diagnoses [...]
--- OUTSIDE RECORDS SUMMARY | 2024-05-21 15:45 | XMS_ITS ---
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 Past Plans No past plan information found. Radiation Treatments * Plan Last Treated On Elapsed Days Fractions Treated Prescribed Fraction Dose Prescribed Total Dose [id number] 04/03/2024 4 3 of 3 1,800 cGy 5,400 c Gy [id number] 11/01/2023 39 30 of 30 200 cGy 6,000 cGy Reference Point Last Treated On Elapsed Days Session Dose Total Dose [id number] 04/03/2024 4 1,800 cGy 5,400 cGy [id number] 11/01/2023 39 200 cGy 6,000 cGy Lifetime Dose Tracking * Chemical Lifetime Dose Automatic Entry Manual Entr y Radiation 264.4 mGy 264.4 mGy 0 mGy Fluoro Time 9.29 minutes 9.29 minutes 0 minutes DAP (uGy-m2) 4,088.8 uGy-m2 4,088.8 uGy-m2 0 uGy-m2
--- OUTSIDE RECORDS SUMMARY | 2024-05-21 15:46 | XMS_ITS | Encounter Summary ---
Author Organization [facility] Address [address] [place] [address] Care Team Providers Care Production Support Developer Name Role Phone Unavailable Primary Care Provider Unavailabl e Reason for Referral * Radiation Therapy (Routine) - Closed Specialty Diagnoses / Procedures Referred By Ervin frye Referred To Contact Diagnoses Malignant Neoplasm Of Lung Right (HCC) Procedures Initial Rad Onc Treatment Planning CT Simulation without IV Contrast Elsie Dewey M.D. 200 [place] [address] Phone: tel: fax: [facility] Region Referral ID Status Reason Start Date Expiration Date Visits Re quested Visits Authorized [id number] Closed 03/20/2024 03/20/2025 1 1 Reason for Visit * Radiation Therapy (Routine) - Closed Specialty Diagnoses / Procedures Referred By Ervin frye Referred To Contact Diagnoses Malignant Neoplasm Of Lung Right (HCC) Procedures Initial Rad Onc Treatment Planning CT Simulation without IV Contrast Elsie Dewey M.D. 200 [place] [address] Phone: tel: fax: [facility] Region Referral ID Status Reason Start Date Expiration Date Visits Re quested Visits Authorized [id number] Closed 03/20/2024 03/20/2025 1 1 Encounter Details Date Type Department Care Team (Latest Contact Info) Description 03/24/2024 10:57 AM CDT - 03/25/2024 9:02 AM CDT Hospital Encounter Department of Radiation Oncology in [place], [place] [address] [place] [address] Elsie Dewey M.D. [address] [place] [address] Malignant Neoplasm Of Lung Right (HCC) Social History Tobacco Use Types Packs/Day Years Used Date Smoking Tobacco: Former Cigarettes 2.5 49.1 0 09/25/1962 - 10/19/2011 Smokeless Tobacco: Never Alcohol Use Standard Drinks/Week Comments Yes 1 (1 standard drink = 0.6 oz pur e alcohol) [facility] Utilities Answer Date Recorded In the past 12 months has e [employer], gas, oil, or water [employer] threatened to shut off services in your [...] declined 10/31/2022 How often do you attend synagogue or cheondoism serv ices? Never 10/31/2022 Do you belong to any clubs o r organizations such as synagogue groups, unions, fraternal or athletic groups, or [...] and heating? Not hard at all 10/31/2022 [facility] of Occupat ional Health - Occupational [...] your living situation today? I have a [facility] place to live 03/20/2024 Education Answer Date Recorded What is the highest level of school you have completed or the highest degree you have received? 10th grade 10/24/2020 Comments No Sex and Gender Information Value Date Recorded Sex Assigned at Female 04/17/2018 10:15 AM CDT Legal Sex Female 4:08 PM JUTE BAG CUTTING MACHINE OPERATOR Gender Identity Female 04/17/2018 10:15 AM [...] planning. CT images were transferred to the [employer] treatment planning system, after a reference isocenter was determined and marked. Segmentation and treatment planning will take place prior to treatment delivery. Patient set up and imaging was appropriate and completed without incident. Binder Coverstitch use:No Cosigned by Elsie Dewey M.D. at 03/25/2024 9:01 AM CDT Associated attestation - Elsie Dewey M.D. - 03/25/2024 9:01 AM CDT I was present during all critical and eubanks portions of the procedure(s) and immediately available [facility] the entire duration. See note for details. documented in this encounter Plan of Treatment Upcoming Encounters Date Type Department Care Team (Late st Contact Info) Description 07/07/2024 10:30 AM JUTE BAG CUTTING MACHINE OPERATOR Appointment Department of Radiology in [place], [place] [address] [place] [address] Laya Mitchell M.D. [address] [place] [address] Discharge Disposition: Home or Self Care 07/07/2024 11:30 AM JUTE BAG CUTTING MACHINE OPERATOR Appointment Department of Radiology in [place], [place] [address] [place] [address] Laya Mitchell M.D. [address] [place] [phone] 07/10/2024 2:30 PM JUTE BAG CUTTING MACHINE OPERATOR Appointment Department of Radiation Oncology in [place], [place] [address] [place] [address] Elsie Dewey M.D. [address] [place] [address] documented as of this encounter Procedures Procedure [...]
--- OUTSIDE RECORDS SUMMARY | 2024-05-21 15:46 | XMS_ITS | Encounter Summary ---
Author Organization [facility] Address [address] [place] [address] Care Team Providers Care Nail Specialist Name Role Phone Unavailable Primary Care Provider Unavailabl e Reason for Referral * Outpatient (Routine) - Closed Specialty Diagnoses / Procedures Referred By Contac t Referred To Contact Radiation Oncology Elsie Dewey M.D. [address] [place] [address] Phone: tel: [facility] Region Referral ID Status Reason Start Date Expiration Date Visits Re quested Visits Authorized [id number] Closed 01/01/2024 07/02/2025 1 1 Reason for Visit * Outpatient (Routine) - Closed Specialty Diagnoses / Procedures Referred By Ervin frye Referred To Contact Radiation Oncology Elsie Dewey M.D. [address] [place] [address] Phone: tel: fax[facility] Region Referral ID Status Reason Start Date Expiration Date Visits Re quested Visits Authorized [id number] Closed 01/01/2024 07/02/2025 1 1 Encounter Details Date Type Department Care Team (Latest Contact Info) Description 03/09/2024 2:34 PM CDT - 03/09/2024 4:32 PM CDT Hospital Encounter Department of Radiation Oncology in [place], [place] [address] [place] [phone] Elsie Dewey M.D. [address] [place] [address] Malignant Neoplasm Of Lung Left (HCC) (Primary [...] How often do you attend hinduism or druze serv ices? Never 10/31/2022 Do [...] Not hard at all 10/31/2022 [facility] of Occupat ional Health - Occupational Stress [...] CDT Legal Sex Female 4:08 PM SUPERVISOR WASH HOUSE Gender Identity Female 04/17/2018 10:15 AM CDT [...] with the two right lower nodules likely automobile rental representative of low-grade adenocarcinoma. 14. April 22, [...] APRN, Sylvia.N.PJessica, D.N.PJessica 03/09/2024 3:26 PM CDT [facility] Radiation Therapy [facility] [address] [place] [address] Cosigned by Elsie Dewey M.D. at 03/09/2024 [...] Contact Info) Description 07/07/2024 10:30 AM SUPERVISOR WASH HOUSE Appointment Department of Radiology in [place], [place] [address] [place] [address] Laya Mitchell M.D. 404 [place] [address] Discharge Disposition: Home or Self Care 07/07/2024 11:30 AM SUPERVISOR WASH HOUSE Appointment Department of Radiology in [place], [place] [address] [place] [address] Laya Mitchell M.D. [address] [place] [address] 07/10/2024 2:30 PM SUPERVISOR WASH HOUSE Appointment Department of Radiation Oncology in [place], [place] [address] [place] [address] Elsie Dewey M.D. [address] [place] [address] Scheduled Referrals Name Type Priority Associated Diagnoses Order Schedule Radiation Oncology office visit (clinic) Outpatient Referral Routine Once for 1 Occurrences starting 03/09/2024 until 03/09/2024 documented as of this encounter Visit Diagnoses Diagnosis Malignant Neoplasm Of Lung Left (HCC)- Primary Malignant Neoplasm Of Lung Right (HCC) documented in this encounter
--- OUTSIDE RECORDS SUMMARY | 2024-05-21 15:46 | XMS_ITS | Encounter Summary ---
Author Organization [facility] Address [address] [place] [address] Care Team Providers Care Network Support Manager Name Role Phone Unavailable Primary Care Provider Unavailabl e Reason for Referral * MRI/CAT/PET Scan (Routine) - Closed Specialty Diagnoses / Procedures Referred By Contfely t Referred To Contact Diagnoses Malignant Neoplasm Of Lung Left (HCC) Malignant Neoplasm Of Lung Right (HCC) Nodules Pulmonary Multiple Lymphadenopathy Mediastinum Procedures PET CT Skull to Thigh FDG Laya Mitchell M.D. [address] [place] [address] Phone: tel: fax: [facility] Region Referral ID Status Reason Start Date Expiration Date Visits Re quested Visits Authorized [id number] Closed 03/11/2024 03/11/2025 1 1 Encounter Details Date Type Department Care Team (Late st Contact Info) Description 03/11/2024 Orders Only Department of Oncology in [place], [place] [address] [place] [phone] Laya Mitchell M.D. [address] [place] [phone] Malignant Neoplasm Of Lung Left (HCC) (Primary Dx); Malignant Neoplasm Of Lung Right (HCC); Nodules Pulmonary Multiple; Lymphadenopathy Mediastinum Social History Tobacco Use Types Packs/Day Years Used Date Smoking Tobacco: Former Cigarettes 2.5 49.1 0 09/25/1962 - 10/19/2011 Smokeless Tobacco: Never Alcohol Use Standard Drinks/Week Comments Yes 1 (1 standard drink = 0.6 oz pur e alcohol) [facility] Utilities Answer Date Recorded In the past 12 months has e [employer], gas, oil, or water [employer] threatened to shut off services in your [...] How often do you attend episcopalian or orthodox serv ices? Never 10/31/2022 Do you [...] and heating? Not hard at all 10/31/2022 [facility] - [facility] Stress Questionnaire Answer [...] CDT Legal Sex Female 4:08 PM POWER CHECKER Gender Identity Female 04/17/2018 10:15 AM CDT Sexual Orientation Straight 04/17/2018 10 :15 AM CDT documented as of this encounter Plan of Treatment Upcoming Encounters Date Type Department Care Team (Late st Contact Info) Description 07/07/2024 10:30 AM POWER CHECKER Appointment Department of Radiology in [place], [place] [address] [address] Laya Mitchell M.D. [address] [place] [phone] Discharge Disposition: Home or Self Care 07/07/2024 11:30 AM POWER CHECKER Appointment Department of Radiology in [place], [place] [address] [address] Laya Mitchell M.D. [address] [place] [phone] 07/10/2024 2:30 PM POWER CHECKER Appointment Department of Radiation Oncology in [place], [place] [address] [place] [address] Elsie Dewey M.D. [address] [place] [address] documented as of this encounter Results * [...] RADIOPHARMACEUTICAL/MEDS: Route: intravenous fludeoxyglucose F 18 injection INTERMEDIATE (FDG F-18),11.2 millicurie Procedure Note Corey Hillman [...] RADIOPHARMACEUTICAL/MEDS: Route: intravenous fludeoxyglucose F 18 injection INTERMEDIATE (FDG F-18),11.2 millicurie IMPRESSION: 1. Interval increase [...]
--- OUTSIDE RECORDS SUMMARY | 2024-05-21 15:46 | XMS_ITS | Encounter Summary ---
Author Organization [facility] Address [address] [place] [address] Care Team Providers Care Ice Skating Instructor Name Role Phone Unavailable Primary Care Provider Unavailabl e Encounter Details Date Type Department Care Team (Late st Contact Info) Description 04/01/2024 Clinical Communication Department of Radiation Oncology in [place], [place] [address] [place] [address] Elsie Dewey M.D. [address] [place] [address] Social History Tobacco Use Types Packs/Day Years Used Date Smoking Tobacco: Former Cigarettes 2.5 49.1 0 09/25/1962 - 10/19/2011 Smokeless Tobacco: Never Alcohol Use Standard Drinks/Week Comments Yes 1 (1 standard drink = 0.6 oz pur e alcohol) [facility] Utilities Answer Date Recorded In the past [...] often do you attend latter day or adventist serv ices? Never 10/31/2022 Do you belong [...] and heating? Not hard at all 10/31/2022 [facility] of Occupat ional Health - Occupational Stress [...] your living situation today? I have a [employer] [facility] [employer] [facility] place to live 03/20/2024 Education Answer Date Recorded What is the highest level of school you have completed or the highest degree you have received? 10th grade 10/24/2020 Comments No Sex and Gender Information Value Date Recorded Sex Assigned at Female 04/17/2018 10:15 AM CDT Legal Sex Female 4:08 PM WATER RESOURCE ENGINEER Gender Identity Female 04/17/2018 10:15 AM CDT [...] st Contact Info) Description 07/07/2024 10:30 AM WATER RESOURCE ENGINEER Appointment Department of Radiology in [place], [place] [address] [address] Laya Mitchell M.D. 404 [place] [phone] Discharge Disposition: Home or Self Care 07/07/2024 11:30 AM WATER RESOURCE ENGINEER Appointment Department of Radiology in [place], [place] [address] [place] [address] Laya Mitchell M.D. [address] [place] [phone] 07/10/2024 2:30 PM WATER RESOURCE ENGINEER Appointment Department of Radiation Oncology in [place], [place] [address] [place] [address] Elsie Dewey M.D. [address] [place] [address] documented as of this encounter Visit Diagnoses Not on filedocumented in this encounter
--- OUTSIDE RECORDS SUMMARY | 2024-05-21 15:46 | XMS_ITS | Encounter Summary ---
Author Organization [facility] Address [address] [place] [address] Care Team Providers Care Rn Building Name Role Phone Unavailable Primary Care Provider Unavailabl e Reason for Referral * Outpatient (Routine) - Closed Specialty Diagnoses / Procedures Referred By Ervin frye Referred To Contact Radiation Oncology Diagnoses Malignant Neoplasm Of Lung Right (HCC) Elsie Dewey M.D. [address] [place] [address] Phone: tel: fax: Elsie Dewey M.D. [address] [place] [address] Phone: tel: fax: Referral ID Status Reason Start Date Expiration Date Visits Re quested Visits Authorized [id number] Closed 03/20/2024 09/19/2025 1 1 Scheduling Instructions Coordinate with SIM * Radiation Therapy (Routine) - Authorized Specialty Diagnoses / Procedures Referred By Ervin frye Referred To Contact Diagnoses Malignant Neoplasm Of Lung Right (HCC) Procedures Management Visit Elsie Dewey M.D. [address] [place] [address] Phone: tel: fax: [facility] Region Referral ID Status Reason Start Date Expiration Date V isits Requested Visits Authorized [id number] Authorized 03/20/2024 03/20/2025 10 10 * Radiation Therapy (Routine) - Closed Specialty Diagnoses / Procedures Referred By Contac t Referred To Contact Diagnoses Malignant Neoplasm Of Lung Right (HCC) Procedures Initial Rad Onc Treatment Planning CT Simulation without IV Contrast Elsie Dewey M.D. [address] [place] [address] Phone: tel: fax: [facility] Region Referral ID Status Reason Start Date Expiration Date Visits Re quested Visits Authorized [id number] Closed 03/20/2024 03/20/2025 1 1 * Radiation Therapy (Routine) - Authorized Specialty Diagnoses / Procedures Referred By Contac t Referred To Contact Diagnoses Malignant Neoplasm Of Lung Right (HCC) Procedures Prior Auth Rad Tx Elsie Dewey M.D. [address] [place] [address] Phone: tel: fax: [facility] Referral ID Status Reason Start Date Expiration Date V isits Requested Visits Authorized [id number] Authorized 03/20/2024 03/20/2025 1 1 Encounter Details Date Type Department Care Team (Late st Contact Info) Description 03/20/2024 Orders Only Department of Radiation Oncology in [place], [place] [address] [place] [phone] Albertina Stiles APRN, C.N.P., D.N.P. [address] [place] [address] Malignant Neoplasm Of Lung Right (HCC) (Primary Dx) Social History Tobacco Use Types Packs/Day Years Used Date Smoking Tobacco: Former Cigarettes 2.5 49.1 0 09/25/1962 - 10/19/2011 Smokeless Tobacco: Never Alcohol Use Standard Drinks/Week Comments Yes 1 (1 standard drink = 0.6 oz pur e alcohol) [facility] Utilities Answer Date Recorded In the [...] How often do you attend mosque or advent serv ices? Never 10/31/2022 Do [...] all 10/31/2022 [facility] [place] of Occupat ional Health - Occupational Stress [...] AM CDT Legal Sex Female 4:08 PM ELECTRONEURODIAGNOSTIC TECHNICIAN Gender Identity Female 04/17/2018 10:15 AM CDT Sexual Orientation Straight 04/17/2018 10 :15 AM CDT documented as of this encounter Plan of Treatment Upcoming Encounters Date Type Department Care Team (Late st Contact Info) Description 07/07/2024 10:30 AM ELECTRONEURODIAGNOSTIC TECHNICIAN Appointment Department of Radiology in [place], [place] [address], [place] [address] Laya Mitchell M.D. [address] [place] [address] Discharge Disposition: Home or Self Care 07/07/2024 11:30 AM ELECTRONEURODIAGNOSTIC TECHNICIAN Appointment Department of Radiology in [place], [place] [address], [place] [address] Laya Mitchell M.D. [address] [place] [address] 07/10/2024 2:30 PM ELECTRONEURODIAGNOSTIC TECHNICIAN Appointment Department of Radiation Oncology in [place], [place] [address] [place] [address] Elsie Dewey M.D. [address] [place] [address] Scheduled Orders Name Type Priority Associated Diagnoses [...]
--- OUTSIDE RECORDS SUMMARY | 2024-05-21 15:46 | XMS_ITS | Encounter Summary ---
Author Organization [facility] Address [address] [place] [id number] Care Team Providers Care City Solicitor Name Role Phone Unavailable Primary Care Provider Unavailabl e Reason for Referral * Outpatient (Routine) - Closed Specialty Diagnoses / Procedures Referred By Ervin frye Referred To Contact Radiation Oncology Diagnoses Malignant Neoplasm Of Lung Right (HCC) Elsie Dewye M.D. [address] [place] [phone] Phone: tel: fax: Elsie Dewey M.D. [address] [place] [phone] Phone: tel: fax: Referral ID Status Reason Start Date Expiration Date Visits Re quested Visits Authorized [id number] Closed 03/20/2024 09/19/2025 1 1 Scheduling Instructions Coordinate with SIM Reason for Visit * Outpatient (Routine) - Closed Specialty Diagnoses / Procedures Referred By Ervin frye Referred To Contact Radiation Oncology Diagnoses Malignant Neoplasm Of Lung Right (HCC) Elsie Dewey M.D. [address] [place] [phone] Phone: tel: fax: Elsie Dewey M.D. 200 [place] [address] Phone: tel: fax: Referral ID Status Reason Start Date Expiration Date Visits Re quested Visits Authorized [id number] Closed 03/20/2024 09/19/2025 1 1 Encounter Details Date Type Department Care Team (Latest Contact Info) Description 03/24/2024 10:26 AM CDT - 03/24/2024 10:56 AM CDT Hospital Encounter Department of Radiation Oncology in [place], [place] [address] [place] [address] Elsie Dewey M.D. 200 [place] [phone] Malignant Neoplasm Of Lung Right (HCC) (Primary Dx) Social History Tobacco Use Types Packs/Day Years Used Date Smoking Tobacco: Former Cigarettes 2.5 49.1 0 09/25/1962 - 10/19/2011 Smokeless Tobacco: Never Alcohol Use Standard Drinks/Week Comments Yes 1 (1 standard drink = 0.6 oz pur e alcohol) [facility] Utilities Answer Date Recorded In the past 12 months has e [employer] gas, oil, or water [employer] threatened to shut off services in your [...] How often do you attend alevism or lutheran serv ices? Never 10/31/2022 Do [...] and heating? Not hard at all 10/31/2022 [facility] Occupat ional Health - Occupational [...] your living situation today? I have a [facility] place to live 03/20/2024 Education Answer Date Recorded What is the highest level of school you have completed or the highest degree you have received? 10th grade 10/24/2020 Comments No Sex and Gender Information Value Date Recorded Sex Assigned at Female 04/17/2018 10:15 AM CDT Legal Sex Female 4:08 PM NURSE ASSISTANT Gender Identity Female 04/17/2018 10:15 AM CDT [...] with the two right lower nodules likely leather goods sales representative of low-grade adenocarcinoma. 14. April [...] APRN, C.N.PJessica, D.N.P. 03/24/2024 11:39 AM CDT [facility] [address] [place] [address] Cosigned by Elsie Dewey M.D. at 03/24/2024 [...] We discussed the acute as well as [facility] risks, including, but not limited to fatigue, [...] st Contact Info) Description 07/07/2024 10:30 AM NURSE ASSISTANT Appointment Department of Radiology in [place], [place] [address] [place] [address] Laya Mitchell M.D. [address] [place] [phone] Discharge Disposition: Home or Self Care 07/07/2024 11:30 AM NURSE ASSISTANT Appointment Department of Radiology in [place], [place] [address], [place] [address] Laya Mitchell M.D. [address] [place] [phone] 07/10/2024 2:30 PM NURSE ASSISTANT Appointment Department of Radiation Oncology in [place], [place] [address] [place] [phone] Elsie Dewey M.D. [address] [place] [address] Scheduled Referrals Name Type Priority Associated Diagnoses Order Schedule Radiation Oncology office visit (clinic) Outpatient Referral Routine Malignant Neoplasm Of Lung Right (HCC) Once for 1 Occurrences starting 03/24/2024 until 03/24/2024 documented as of this encounter Visit Diagnoses Diagnosis Malignant Neoplasm Of Lung Right (HCC)- Primary documented in this encounter
--- OUTSIDE RECORDS SUMMARY | 2024-05-21 15:46 | XMS_ITS | Encounter Summary ---
Author Organization [facility] Address [address] [place] [address] Care Team Providers Care Furniture Repairer Name Role Phone Unavailable Primary Care Provider Unavailabl e Encounter Details Date Type Department Care Team (Latest Contact Info) Description 03/30/2024 1:49 PM CDT - 03/30/2024 11:59 PM CDT Hospital Encounter Department of Radiation Oncology in [place], [place] [address] [place] [phone] Elsie Dewey M.D. [address] [place] [address] Discharge Disposition: Home or Self Care Social [...] How often do you attend mormonism or anabaptist serv ices? Never 10/31/2022 Do [...] and heating? Not hard at all 10/31/2022 [facility] of Occupat ional Health - Occupational Stress [...] your living situation today? I have a [facility] place to live 03/20/2024 Education Answer Date Recorded What is the highest level of school you have completed or the highest degree you have received? 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 [address] [place] [phone] Discharge Disposition: Home or Self Care 07/07/2024 11:30 AM PIPE JOINTS SUPERVISOR Appointment Department of Radiology in [place], [place] [address] [phone] Laya Mitchell M.D. [address] [place] [address] 07/10/2024 2:30 PM PIPE JOINTS SUPERVISOR Appointment Department of Radiation Oncology in [place], [place] [address] [place] [phone] Elsie Dewey M.D. [address] [place] [address] documented as of this encounter Visit Diagnoses Not on filedocumented in this encounter
--- OUTSIDE RECORDS SUMMARY | 2024-05-21 15:46 | XMS_ITS | Encounter Summary ---
Author Organization [facility] Address [address] [place] [address] Care Team Providers Care Detail Technician Name Role Phone Unavailable Primary Care Provider Unavailabl e Reason for Referral * MRI/CAT/PET Scan (Routine) - Closed Specialty Diagnoses / Procedures Referred By Ervin frye Referred To Contact Diagnoses Malignant Neoplasm Of Lung Left (HCC) Malignant Neoplasm Of Lung Right (HCC) Nodules Pulmonary Multiple Lymphadenopathy Mediastinum Procedures PET CT Skull to Thigh FDG Laya Mitchell M.D. [address] [place] [address] Phone: tel: fax: [facility] Region Referral ID Status Reason Start Date Expiration Date Visits Re quested Visits Authorized [id number] Closed 03/11/2024 03/11/2025 1 1 Reason for Visit * MRI/CAT/PET Scan (Routine) - Closed Specialty Diagnoses / Procedures Referred By Ervin frye Referred To Contact Diagnoses Malignant Neoplasm Of Lung Left (HCC) Malignant Neoplasm Of Lung Right (HCC) Nodules Pulmonary Multiple Lymphadenopathy Mediastinum Procedures PET CT Skull to Thigh FDG Laya Mitchell M.D. [address] [place] [address] Phone: tel: fax: [facility] Region Referral ID Status Reason Start Date Expiration Date Visits Re quested Visits Authorized [id number] Closed 03/11/2024 03/11/2025 1 1 Encounter Details Date Type Department Care Team (Latest Contact Info) Description 03/19/2024 10:39 AM CDT - 03/19/2024 11:59 PM CDT Hospital Encounter Department of Radiology in [place], [place] [address] [place] [address] Laya Mitchell M.D. [address] [place] [phone] Malignant Neoplasm Of Lung Left (HCC); Malignant Neoplasm Of Lung Right (HCC); Nodules Pulmonary Multiple; Lymphadenopathy Mediastinum Discharge Disposition: Home or Self Care Social History Tobacco Use Types Packs/Day Years Used Date Smoking Tobacco: Former Cigarettes 2.5 49.1 0 09/25/1962 - 10/19/2011 Smokeless Tobacco: Never Alcohol Use Standard Drinks/Week Comments Yes 1 (1 standard drink = 0.6 oz pur e alcohol) [facility] Utilities Answer Date Recorded In the past 12 months has e [employer], gas, oil, or water [employer] threatened to shut off services in your [...] How often do you attend caodaism or gnosticist serv ices? Never 10/31/2022 Do [...] living situation today? I have a [facility] place to live 03/20/2024 Education Answer Date Recorded What is the highest level of school you have completed or the highest degree you have received? 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 [address] [place] [phone] Discharge Disposition: Home or Self Care 07/07/2024 11:30 AM GLASSWARE VERIFIER Appointment Department of Radiology in [place], [place] [address] [address] Laya Mitchell M.D. [address] [place] [phone] 07/10/2024 2:30 PM GLASSWARE VERIFIER Appointment Department of Radiation Oncology in [place], [place] [address] [place] [address] Elsie Dewey M.D. [address] [place] [address] documented as of this encounter Procedures Procedure [...] RADIOPHARMACEUTICAL/MEDS: Route: intravenous fludeoxyglucose F 18 injection PRISON (FDG F-18),11.2 millicurie Procedure Note Corey Hillman [...] RADIOPHARMACEUTICAL/MEDS: Route: intravenous fludeoxyglucose F 18 injection PRISON (FDG F-18),11.2 millicurie IMPRESSION: 1. Interval increase [...] Dose Rate Site fludeoxyglucose F 18 injection PRISON (FDG F-18) 11.2 millicurie, intravenous, Once, On Natali 03/19/24 at 1115, For 1 dose, Imaging Protocol Orders Given 03/19/2024 10:55 AM CDT 11.2 millicuries Right Antecubital documented in this encounter
[2024-05-21] MEDS: HEPARIN 500 UNIT/5 ML SYRINGE IVF (15:48)
[2024-05-21 15:57] LABS: Basophils Absolute Auto 0.02 K/uL (0.00-0.30); Basophils Percent Auto 0.4 % (0.0-3.0); Eosinophils Absolute Auto 0.09 K/uL (0.00-0.50); Eosinophils Percent Auto 1.8 % (0.0-7.0); Hematocrit 30.1 % (33.0-51.0); Hemoglobin* 9.5 gm/dL (12.0-16.0); Immature Granulocytes Abs Auto 0.01 K/uL (0.00-0.30); Immature Granulocytes Pct Auto 0.2 %; Lymphocytes Percent Auto 12.8 % (20-44); Mean Corpuscular HGB Conc 32 gm/dL (32-36); Mean Corpuscular Hemoglobin 28 pg (26-34); Mean Corpuscular Volume 90 fL (80-100); Monocytes Percent Auto 8.1 % (0.0-11.0); Neutrophils Percent Auto 76.7 % (42.0-72.0); Platelet Count* 216 K/uL (140-440); RDW Coefficient of Variation % 13.9 % (11.5-15.5); Red Blood Count 3.35 m/uL (4.00-5.20); White Blood Count* 5.06 K/uL (4.50-11.00)
[2024-05-21 15:58] LABS: Slide Review Reflex No
[2024-05-21 16:22] LABS: Chloride* 104 mmol/L (96-114)
[2024-05-21 16:23] LABS: Potassium* 3.9 mmol/L (3.6-5.1); Sodium* 136 mmol/L (135-149)
[2024-05-21 16:25] LABS: Est. Creatinine Clearance* 39.04; Estimated Glomerular Filt Rate 59 ml/min
[2024-05-21 16:26] LABS: Blood Urea Nitrogen* 27 mg/dL (7-30); Calcium* 8.8 mg/dL (8.4-10.6); Carbon Dioxide* 27 mmol/L (20-32); Glucose* 95 mg/dL (60-115)
[2024-05-21 16:30] LABS: Anion Gap 5 mEq/L (7-15)
[2024-05-21 16:49] VITALS: BP 134/96; PULSE 84; RESP 16
--- NOTE | 2024-06-08 14:47 | ONC.NURNOTE ---
Shorty gil MD is [facility] Heart at [facility]. Whom is out of the office. Carrol saw Corrine Valladares MD today. She is scheduled for a upper and lower endoscopy in [place] Aug 04. Her Dario is concerned and would like the scope sooner. Enc. Dario to talk to Corrine Chahal nurse for a referal to the [facility] or [facility]. Dario was not interested in [facility]. Active listened and encouraged him to have them set it up for his .
== END 2024-05-21 16:49 | disposition home or self-care (01) ==
PROVIDERS: Emergency Provider Emergency Medicine Emergency Medical Services; PCP Internal Medicine
DX: D64.9 Anemia, unspecified (principal)
CPT/HCPCS: 36415; 80048; 85025; 99283; 99284; J1642

== ENCOUNTER 2024-06-30 13:29 | Outpatient (CLI) | payer MEDICARE, BC, SELFPAY ==
--- NOTE | 2024-06-30 14:00 | CRLHL7_ITS ---
For Patients: As a result of the Century Cures Act, medical imaging exams and procedure reports are released immediately into your electronic medical record. You may view this report before your referring provider. If you have questions, please contact your health care provider. INDICATIONS: Malignant neoplasm right lung. TECHNIQUE: CT chest was acquired with 75 cc of Isovue 370 IV contrast. COMPARISON: CT chest 04/01/2024 and 03/05/2024. FINDINGS: No pleural or pericardial effusions. No pathologic lymphadenopathy. Right IJ Port-A-Cath appears unchanged. Aortic atherosclerosis. Thoracic aorta and main pulmonary arteries are normal in caliber. Coronary artery calcifications. Heart size is within normal limits. Soft tissues of the thoracic wall are unremarkable. No pneumothorax. Central airways are patent. Moderate emphysema, as before. Stable spiculated nodular density in the medial right upper lobe. Irregular 1.8 cm right lower lobe nodule has become less dense, has slightly decreased in size but now demonstrates irregular adjacent consolidation. New 2.3 cm nodular density in the posterior left lower lobe abuts the hemidiaphragm. Additional subcentimeter left lower lobe nodules appear new or increased. Nodular densities in the inferior lingula have increased. Stable 2.4 cm nodular density in the left lower lobe on image 65 of series 2. Stable 6 mm nodule at the left lung apex on image 17. Upper abdomen as imaged is unremarkable/unchanged. Degenerative changes of the spine. No acute or suspicious osseous abnormality. IMPRESSION: 1. New consolidation surrounding the spiculated right lower lobe nodule suggest sequela of treatment related change. The right lower lobe nodule has slightly decreased in size. 2. New nodular densities in the inferior lingula and posterior left lower lobar are indeterminate. Continued attention to these on imaging follow-up is recommended. 3. Additional stable bilateral nodular opacities. 4. No pathologic lymphadenopathy in the chest. 5. Moderate emphysema. Dictated by Hugh Parker MD @ 07/01/2024 12:25:33 PM Please note that all CT scans at this facility use dose modulation, iterative reconstruction, and/or weight-based dosing when appropriate to reduce radiation dose to as low as reasonably achievable. Dictated by: Huhg Parker MD @ 07/01/2024 12:31:24 (Electronically Signed)
== END 2024-06-30 13:30 | disposition home or self-care (01) ==
LOC: CT 13:32
PROVIDERS: PCP Internal Medicine; Visit Provider Radiology Radiation Oncology
DX: C34.91 Malignant neoplasm of unspecified part of right bronchus or lung (principal); R91.8 Other nonspecific abnormal finding of lung field; J43.9 Emphysema, unspecified
CPT/HCPCS: 71260; Q9967

== ENCOUNTER 2024-08-26 09:15 | Outpatient (RCR) | payer MEDICARE, BC, SELFPAY ==
[2024-03-11] MEDS: DURVALUMAB 1,500 MG, TUBING PRIMARY 1 EACH, In-line 0.2 micron filter set 1 EACH in 0.9... 280 MG IVPB (14:17)
[2024-03-11] MEDS: SODIUM CHLORIDE 0.9 % (FLUSH) 10 ML SYRINGE IVF (15:23)
[2024-03-11] MEDS: HEPARIN 500 UNIT/5 ML SYRINGE IVF (15:23)
[2024-04-06 14:19] LABS: Albumin* 4.4 g/dL (3.3-5.0); Chloride* 97 mmol/L (96-114); Potassium* 4.1 mmol/L (3.6-5.1); Sodium* 132 mmol/L (135-149)
[2024-04-06 14:21] LABS: Basophils Absolute Auto 0.02 K/uL (0.00-0.30); Basophils Percent Auto 0.2 % (0.0-3.0); Eosinophils Absolute Auto 0.01 K/uL (0.00-0.50); Eosinophils Percent Auto 0.1 % (0.0-7.0); Hematocrit 38.8 % (33.0-51.0); Hemoglobin* 12.4 gm/dL (12.0-16.0); Immature Granulocytes Abs Auto 0.04 K/uL (0.00-0.30); Immature Granulocytes Pct Auto 0.5 %; Lymphocytes Percent Auto 6.3 % (20-44); Mean Corpuscular HGB Conc 32 gm/dL (32-36); Mean Corpuscular Hemoglobin 29 pg (26-34); Mean Corpuscular Volume 92 fL (80-100); Monocytes Percent Auto 2.8 % (0.0-11.0); Neutrophils Percent Auto 90.1 % (42.0-72.0); Platelet Count* 204 K/uL (140-440); RDW Coefficient of Variation % 14.2 % (11.5-15.5); Red Blood Count 4.23 m/uL (4.00-5.20); White Blood Count* 8.16 K/uL (4.50-11.00)
[2024-04-06 14:22] LABS: Alanine Aminotransferase* 23 U/L (4-35); Alkaline Phosphatase* 71 U/L (40-150); Anion Gap 8 mEq/L (7-15); Aspartate Amino Transferase* 28 U/L (12-35); Bilirubin Total* 0.4 mg/dL (0.1-1.5); Blood Urea Nitrogen* 43 mg/dL (7-30); Carbon Dioxide* 27 mmol/L (20-32); Creatinine* 1.1 mg/dL (0.5-1.5); Est. Creatinine Clearance* 33.86; Estimated Glomerular Filt Rate 53 ml/min; Glucose* 126 mg/dL (60-115); Total Protein* 7.5 g/dL (6.0-8.3)
[2024-04-06 14:23] LABS: Calcium* 9.3 mg/dL (8.4-10.6)
[2024-04-06 14:25] LABS: Slide Review Reflex No
[2024-04-08 14:05] VITALS: BP 150/78; PULSE 77; RESP 18; TEMP 37; O2SAT 92
[2024-04-08] MEDS: DURVALUMAB 1,500 MG, TUBING PRIMARY 1 EACH, In-line 0.2 micron filter set 1 EACH in 0.9... 280 MG IVPB (14:29)
[2024-04-08] MEDS: SODIUM CHLORIDE 0.9 % (FLUSH) 10 ML SYRINGE IVF (14:31)
[2024-05-05 14:27] LABS: Potassium* 4.1 mmol/L (3.6-5.1)
[2024-05-05 14:28] LABS: Carbon Dioxide* 24 mmol/L (20-32)
[2024-05-05 15:09] LABS: Basophils Absolute Auto 0.04 K/uL (0.00-0.30); Basophils Percent Auto 0.7 % (0.0-3.0); Eosinophils Percent Auto 3.3 % (0.0-7.0); Hematocrit 25.8 % (33.0-51.0); Hemoglobin* 8.2 gm/dL (12.0-16.0); Immature Granulocytes Abs Auto 0.07 K/uL (0.00-0.30); Immature Granulocytes Pct Auto 1.2 %; Lymphocytes Percent Auto 15.9 % (20-44); Mean Corpuscular HGB Conc 32 gm/dL (32-36); Mean Corpuscular Hemoglobin 30 pg (26-34); Mean Corpuscular Volume 94 fL (80-100); Monocytes Percent Auto 8.4 % (0.0-11.0); Neutrophils Absolute Auto 4.26 K/uL (1.7-7.0); Neutrophils Percent Auto 70.5 % (42.0-72.0); Platelet Count* 234 K/uL (140-440); RDW Coefficient of Variation % 14.9 % (11.5-15.5); Red Blood Count 2.74 m/uL (4.00-5.20); White Blood Count* 6.04 K/uL (4.50-11.00)
[2024-05-05 15:10] LABS: Albumin* 3.9 g/dL (3.3-5.0); Anion Gap 9 mEq/L (7-15); Chloride* 101 mmol/L (96-114); Sodium* 134 mmol/L (135-149)
[2024-05-05 15:12] LABS: Slide Review Reflex No
[2024-05-05 15:13] LABS: Alanine Aminotransferase* 12 U/L (4-35); Alkaline Phosphatase* 69 U/L (40-150); Aspartate Amino Transferase* 25 U/L (12-35); Bilirubin Total* 0.3 mg/dL (0.1-1.5); Blood Urea Nitrogen* 31 mg/dL (7-30); Est. Creatinine Clearance* 37.24; Estimated Glomerular Filt Rate 59 ml/min; Glucose* 103 mg/dL (60-115); Total Protein* 6.5 g/dL (6.0-8.3)
--- NOTE | 2024-05-05 15:25 | ONC.NURNOTE ---
Dye Range Feeder called patient due to hemoglobin dropping from 12.4 to 8.2. Pt coming in for imfinzi tomorrow. Pt states she feels okay, maybe a little short of breath. Denies dizziness and lightheadedness. After updating Jennifer Youngblood APRN, pt encouraged to bring in stool sample if able and we will recheck a hemoglobin when pt comes in tomorrow. Pt verbalized understanding of plan of care.
[2024-05-06 13:15] VITALS: BP 116/76; BP 116/78; PULSE 85; PULSE 86; RESP 15; TEMP 37.2; O2SAT 94
[2024-05-06 13:20] LABS: Hemoglobin* 7.8 gm/dL (12.0-16.0)
[2024-05-06] MEDS: DURVALUMAB 1,500 MG, TUBING PRIMARY 1 EACH, In-line 0.2 micron filter set 1 EACH in 0.9... 280 MG IVPB (13:50)
[2024-05-06] MEDS: SODIUM CHLORIDE 0.9 % (FLUSH) 10 ML SYRINGE IVF (13:50)
[2024-05-06 13:53] LABS: Fecal Occult Blood* Negative (Negative)
--- NOTE | 2024-05-06 15:56 | ONC.NURNOTE ---
Report called to Emergency room for pt to be evaluated for a drop in hemoglobin. guiac stool negative. Pt transferred via wheelchair to ED.
[2024-05-09 00:44] LABS: Total T3 65 ng/dL (80-200)
--- NOTE | 2024-05-11 14:43 | ONC.NURNOTE ---
Received a Covermymeds prior auth request for patient's Levothyroxine. Patient has been on Levothyroxine but dose was increased from 75 mcg to 88 mcg. New prescription is for capsules and patient was previously on tablets. New prescription sent to patient's pharmacy of choice for 88 mcg tablets instead of 88 mcg capsules.
--- NOTE | 2024-05-21 14:35 | ONC.NURNOTE ---
Addendum entered by Skyla Cloud RN 05/21/24 14:42: Biscuit Machine Operator updated Emergency room staff. Original Note: Pt's called stating pt is very weak and almost passed out in the shower, he is taking her to the Emergency room since they cannot get in with primary care. Biscuit Machine Operator verbalized to pt's that this is recommended at this time due to pt recent drop in hemoglobin within the last month.
[2024-06-03 13:24] LABS: Basophils Absolute Auto 0.03 K/uL (0.00-0.30); Basophils Percent Auto 0.5 % (0.0-3.0); Eosinophils Absolute Auto 0.13 K/uL (0.00-0.50); Immature Granulocytes Abs Auto 0.02 K/uL (0.00-0.30); Immature Granulocytes Pct Auto 0.3 %; Lymphocytes Percent Auto 19.8 % (20-44); Mean Corpuscular HGB Conc 31 gm/dL (32-36); Mean Corpuscular Hemoglobin 27 pg (26-34); Mean Corpuscular Volume 86 fL (80-100); Monocytes Percent Auto 9.6 % (0.0-11.0); Neutrophils Absolute Auto 4.37 K/uL (1.7-7.0); Neutrophils Percent Auto 67.8 % (42.0-72.0); Platelet Count* 264 K/uL (140-440); RDW Coefficient of Variation % 14.8 % (11.5-15.5); Red Blood Count 2.68 m/uL (4.00-5.20); White Blood Count* 6.45 K/uL (4.50-11.00)
[2024-06-03 13:34] LABS: Hemoglobin* 7.1 gm/dL (12.0-16.0); Slide Review Reflex No
[2024-06-03 13:53] LABS: Albumin* 3.8 g/dL (3.3-5.0); Chloride* 104 mmol/L (96-114); Potassium* 3.6 mmol/L (3.6-5.1); Sodium* 135 mmol/L (135-149)
[2024-06-03 13:55] LABS: Creatinine* 0.9 mg/dL (0.5-1.5); Est. Creatinine Clearance* 37.24; Estimated Glomerular Filt Rate 67 ml/min
[2024-06-03 13:56] LABS: Alanine Aminotransferase* 12 U/L (4-35); Alkaline Phosphatase* 77 U/L (40-150); Anion Gap 8 mEq/L (7-15); Aspartate Amino Transferase* 24 U/L (12-35); Bilirubin Total* 0.5 mg/dL (0.1-1.5); Blood Urea Nitrogen* 23 mg/dL (7-30); Carbon Dioxide* 23 mmol/L (20-32); Glucose* 105 mg/dL (60-115); Total Protein* 6.6 g/dL (6.0-8.3)
[2024-06-03 13:57] LABS: Calcium* 8.5 mg/dL (8.4-10.6)
[2024-06-03] MEDS: SODIUM CHLORIDE 0.9 % (FLUSH) 10 ML SYRINGE IVF (14:33)
[2024-06-03] MEDS: HEPARIN 500 UNIT/5 ML SYRINGE IVF (14:33)
--- NOTE | 2024-06-03 14:34 | ONC.NURNOTE ---
Critical lab reported: hbg 7.1. Called patient to see if she could come back for a type and screen. This was completed. 1 unit of PRBCs ordered for tomorrow. Patient denies any new symptoms. States she always feels slightly weak, short of breath, and tired. Denies blood in stool or bleeding anywhere else. Contacted MERCHANDISE MANAGER. Verbal order for PRBCs and a fecal occult blood stool sample. Kit was sent home with patient. Type and screen completed. Will return tomorrow for 1 unit of RBCs and to see MERCHANDISE MANAGER. Patient did follow up with her PCP Dr Heart at [facility] in [facility] after her hospital stay in April and was encouraged to increase her iron intake through foods. No other testing was completed at that time.
[2024-06-04] VITALS (7 sets, daily range): BP systolic 126–162; BP diastolic 77–91; PULSE 72–76; RESP 16; TEMP 36.2–36.9; O2SAT 93–97
[2024-06-04] MEDS: SODIUM CHLORIDE 0.9 % (FLUSH) 10 ML SYRINGE IVF ×3 (09:02→13:40)
[2024-06-04] MEDS: 0.9 % SODIUM CHLORIDE 500 ML 250 ML IV (09:02)
[2024-06-04] MEDS: DURVALUMAB 1,500 MG, TUBING PRIMARY 1 EACH, In-line 0.2 micron filter set 1 EACH in 0.9... 280 MG IVPB (12:40)
[2024-06-04] MEDS: HEPARIN 500 UNIT/5 ML SYRINGE IVF (13:40)
[2024-06-05 11:37] LABS: Fecal Occult Blood* Positive (Negative)
[2024-06-09 09:47] LABS: Hemoglobin* 8.7 gm/dL (12.0-16.0)
[2024-06-09] MEDS: HEPARIN 500 UNIT/5 ML SYRINGE IVF (09:47)
[2024-06-09] MEDS: SODIUM CHLORIDE 0.9 % (FLUSH) 10 ML SYRINGE IVF (09:47)
[2024-06-16 09:28] VITALS: BP 150/84; PULSE 91; RESP 16; TEMP 36.2; O2SAT 90
[2024-06-16 09:50] LABS: Hemoglobin* 8.9 gm/dL (12.0-16.0)
[2024-06-16 10:00] VITALS: O2SAT 95
[2024-06-16] MEDS: SODIUM CHLORIDE 0.9 % (FLUSH) 10 ML SYRINGE IVF (10:09)
[2024-06-16] MEDS: HEPARIN 500 UNIT/5 ML SYRINGE IVF (10:09)
--- NOTE | 2024-06-18 11:57 | ONC.NURNOTE ---
Instructed to hold iron after Saturday's dose until after the colonoscopy on Saturday- per Jennifer Cadet APRN
[2024-06-22] MEDS: HEPARIN 500 UNIT/5 ML SYRINGE IVF (10:00)
[2024-06-22] MEDS: SODIUM CHLORIDE 0.9 % (FLUSH) 10 ML SYRINGE IVF (10:00)
[2024-06-22 10:18] LABS: Hemoglobin* 9.2 gm/dL (12.0-16.0)
[2024-06-30] MEDS: SODIUM CHLORIDE 0.9 % (FLUSH) 10 ML SYRINGE IVF (13:40)
[2024-06-30] MEDS: HEPARIN 500 UNIT/5 ML SYRINGE IVF (13:40)
[2024-06-30 13:59] LABS: Basophils Absolute Auto 0.02 K/uL (0.00-0.30); Basophils Percent Auto 0.3 % (0.0-3.0); Eosinophils Absolute Auto 0.11 K/uL (0.00-0.50); Eosinophils Percent Auto 1.8 % (0.0-7.0); Hematocrit 32.4 % (33.0-51.0); Immature Granulocytes Abs Auto 0.01 K/uL (0.00-0.30); Immature Granulocytes Pct Auto 0.2 %; Lymphocytes Absolute Auto 1.23 K/uL (0.90-2.90); Lymphocytes Percent Auto 20.3 % (20-44); Mean Corpuscular HGB Conc 31 gm/dL (32-36); Mean Corpuscular Hemoglobin 26 pg (26-34); Mean Corpuscular Volume 85 fL (80-100); Monocytes Percent Auto 9.3 % (0.0-11.0); Neutrophils Absolute Auto 4.12 K/uL (1.7-7.0); Neutrophils Percent Auto 68.1 % (42.0-72.0); Platelet Count* 250 K/uL (140-440); RDW Coefficient of Variation % 18.8 % (11.5-15.5); Red Blood Count 3.81 m/uL (4.00-5.20); White Blood Count* 6.05 K/uL (4.50-11.00)
[2024-06-30 14:16] LABS: Chloride* 104 mmol/L (96-114); Sodium* 137 mmol/L (135-149)
[2024-06-30 14:19] LABS: Alanine Aminotransferase* 13 U/L (4-35); Alkaline Phosphatase* 72 U/L (40-150); Anion Gap 6 mEq/L (7-15); Aspartate Amino Transferase* 22 U/L (12-35); Bilirubin Total* 0.3 mg/dL (0.1-1.5); Blood Urea Nitrogen* 23 mg/dL (7-30); Carbon Dioxide* 27 mmol/L (20-32); Creatinine* 1.1 mg/dL (0.5-1.5); Est. Creatinine Clearance* 34.95; Estimated Glomerular Filt Rate 52 ml/min; Glucose* 110 mg/dL (60-115); Total Protein* 6.9 g/dL (6.0-8.3)
[2024-06-30 14:20] LABS: Calcium* 8.8 mg/dL (8.4-10.6)
[2024-06-30 14:32] LABS: Potassium* 4.3 mmol/L (3.6-5.1)
[2024-06-30 15:03] LABS: Slide Review Reflex No
[2024-07-01 11:35] VITALS: BP 134/80; PULSE 76; RESP 16; TEMP 36.7; O2SAT 93
[2024-07-01] MEDS: SODIUM CHLORIDE 0.9 % (FLUSH) 10 ML SYRINGE IVF ×2 (11:55→13:03)
[2024-07-01] MEDS: DURVALUMAB 1,500 MG, TUBING PRIMARY 1 EACH, In-line 0.2 micron filter set 1 EACH in 0.9... 280 MG IVPB (11:56)
[2024-07-01] MEDS: HEPARIN 500 UNIT/5 ML SYRINGE IVF (13:03)
--- NOTE | 2024-07-28 14:26 | ONC.NURNOTE ---
Pt here for blood draw prior to imfinzi tomorrow. Pt states she was discharged from the hospital in [place] yesterday for COPD with acute exacerbation. Pt is currently on doxycycline and prednisone. System Planning Engineer discussed with Jennifer Cadet APRN and decision made to push Imfinzi out one week. Pt has a follow up appt with her primary care provider on 07/30/24. Pt verbalized understanding of plan of care.
[2024-08-04] MEDS: SODIUM CHLORIDE 0.9 % (FLUSH) 10 ML SYRINGE IVF (13:30)
[2024-08-04] MEDS: HEPARIN 500 UNIT/5 ML SYRINGE IVF (13:30)
[2024-08-04 13:47] LABS: Basophils Absolute Auto 0.02 K/uL (0.00-0.30); Basophils Percent Auto 0.3 % (0.0-3.0); Eosinophils Absolute Auto 0.16 K/uL (0.00-0.50); Hematocrit 35.1 % (33.0-51.0); Immature Granulocytes Abs Auto 0.04 K/uL (0.00-0.30); Immature Granulocytes Pct Auto 0.5 %; Lymphocytes Percent Auto 14.4 % (20-44); Mean Corpuscular HGB Conc 31 gm/dL (32-36); Mean Corpuscular Hemoglobin 27 pg (26-34); Mean Corpuscular Volume 87 fL (80-100); Neutrophils Percent Auto 75.8 % (42.0-72.0); Platelet Count* 232 K/uL (140-440); RDW Coefficient of Variation % 20.3 % (11.5-15.5); Red Blood Count 4.05 m/uL (4.00-5.20); White Blood Count* 7.91 K/uL (4.50-11.00)
[2024-08-04 13:53] LABS: Slide Review Reflex No
[2024-08-04 14:01] LABS: Albumin* 3.9 g/dL (3.3-5.0); Chloride* 102 mmol/L (96-114)
[2024-08-04 14:02] LABS: Potassium* 4.2 mmol/L (3.6-5.1); Sodium* 136 mmol/L (135-149)
[2024-08-04 14:04] LABS: Alanine Aminotransferase* 29 U/L (4-35); Alkaline Phosphatase* 66 U/L (40-150); Anion Gap 8 mEq/L (7-15); Aspartate Amino Transferase* 25 U/L (12-35); Bilirubin Total* 0.4 mg/dL (0.1-1.5); Blood Urea Nitrogen* 22 mg/dL (7-30); Carbon Dioxide* 26 mmol/L (20-32); Est. Creatinine Clearance* 36.68; Estimated Glomerular Filt Rate 59 ml/min; Total Protein* 6.4 g/dL (6.0-8.3)
[2024-08-04 14:05] LABS: Calcium* 8.7 mg/dL (8.4-10.6); Glucose* 92 mg/dL (60-115)
[2024-08-05 11:20] VITALS: BP 110/73; PULSE 16; PULSE 71; RESP 16; TEMP 36.1; O2SAT 92
[2024-08-05] MEDS: SODIUM CHLORIDE 0.9 % (FLUSH) 10 ML SYRINGE IVF ×2 (12:02→13:10)
[2024-08-05] MEDS: DURVALUMAB 1,500 MG, TUBING PRIMARY 1 EACH, In-line 0.2 micron filter set 1 EACH in 0.9... 280 MG IVPB (12:03)
[2024-08-05] MEDS: HEPARIN 500 UNIT/5 ML SYRINGE IVF (13:10)
[2024-08-26 09:52] LABS: Basophils Absolute Auto 0.02 K/uL (0.00-0.30); Basophils Percent Auto 0.4 % (0.0-3.0); Eosinophils Absolute Auto 0.15 K/uL (0.00-0.50); Eosinophils Percent Auto 2.8 % (0.0-7.0); Hematocrit 36.2 % (33.0-51.0); Hemoglobin* 11.4 gm/dL (12.0-16.0); Immature Granulocytes Abs Auto 0.02 K/uL (0.00-0.30); Immature Granulocytes Pct Auto 0.4 %; Lymphocytes Percent Auto 18.2 % (20-44); Mean Corpuscular HGB Conc 32 gm/dL (32-36); Mean Corpuscular Hemoglobin 28 pg (26-34); Mean Corpuscular Volume 89 fL (80-100); Monocytes Percent Auto 9.3 % (0.0-11.0); Neutrophils Absolute Auto 3.72 K/uL (1.7-7.0); Neutrophils Percent Auto 68.9 % (42.0-72.0); Platelet Count* 242 K/uL (140-440); RDW Coefficient of Variation % 19.7 % (11.5-15.5); Red Blood Count 4.06 m/uL (4.00-5.20); White Blood Count* 5.39 K/uL (4.50-11.00)
[2024-08-26 10:02] LABS: Slide Review Reflex No
[2024-08-26 10:05] LABS: Albumin* 4.1 g/dL (3.3-5.0); Chloride* 102 mmol/L (96-114); Sodium* 137 mmol/L (135-149)
[2024-08-26 10:06] LABS: Potassium* 4.2 mmol/L (3.6-5.1)
[2024-08-26 10:08] LABS: Alanine Aminotransferase* 19 U/L (4-35); Alkaline Phosphatase* 61 U/L (40-150); Anion Gap 7 mEq/L (7-15); Aspartate Amino Transferase* 28 U/L (12-35); Bilirubin Total* 0.4 mg/dL (0.1-1.5); Blood Urea Nitrogen* 27 mg/dL (7-30); Carbon Dioxide* 28 mmol/L (20-32); Creatinine* 0.9 mg/dL (0.5-1.5); Est. Creatinine Clearance* 36.68; Estimated Glomerular Filt Rate 67 ml/min; Glucose* 93 mg/dL (60-115)
[2024-08-26 10:09] LABS: Calcium* 8.9 mg/dL (8.4-10.6)
[2024-08-26] MEDS: HEPARIN 500 UNIT/5 ML SYRINGE IVF (10:34)
[2024-08-26] MEDS: SODIUM CHLORIDE 0.9 % (FLUSH) 10 ML SYRINGE IVF (10:34)
--- NOTE | 2024-09-03 11:35 | ONC.NURNOTE ---
Patient's drug did not arrive on time this week, so treatment schedule was pushed out to today. She is eight days out from lab draw, sign writer letterer or painter contacted ROLL TENDER and was given the okay to use the labs from last week for treatment today. No need to redraw.
[2024-09-03 14:18] VITALS: BP 149/92; PULSE 76; RESP 16; TEMP 36.6; O2SAT 92
[2024-09-03] MEDS: DURVALUMAB 1,500 MG, TUBING PRIMARY 1 EACH, In-line 0.2 micron filter set 1 EACH in 0.9... 280 MG IVPB (14:53)
[2024-09-03] MEDS: SODIUM CHLORIDE 0.9 % (FLUSH) 10 ML SYRINGE IVF (16:01)
[2024-09-03] MEDS: HEPARIN 500 UNIT/5 ML SYRINGE IVF (16:01)
== END 2024-09-07 23:59 | disposition home or self-care (01) ==
LOC: CCIC 09:15
PROVIDERS: Clinical Nurse Specialist; PCP Internal Medicine; Referring Provider Internal Medicine; Visit Provider Internal Medicine Hematology & Oncology
DX: C34.01 Malignant neoplasm of right main bronchus (principal); C34.92 Malignant neoplasm of unspecified part of left bronchus or lung; E03.9 Hypothyroidism, unspecified; D50.9 Iron deficiency anemia, unspecified; Z86.73 Personal history of transient ischemic attack (TIA), and cerebral infarction without residual deficits; Z79.01 Long term (current) use of anticoagulants; Z86.711 Personal history of pulmonary embolism
CPT/HCPCS: 36415; 36430; 36591; 71260; 80053; 82247; 82248; 82270; 82607; 82746; 83010; 83615; 84439; 84443; 84480; 85018; 85025; 86850; 86900; 86901; 86922; 96413; 99214; 99215; G0463; J1642; J7030; J7050; J9173; P9016; Q9967

== ENCOUNTER 2025-03-11 13:00 | Outpatient (RCR) | payer MEDICARE, BC, SELFPAY ==
[2024-09-29 13:50] LABS: Hematocrit* 37.3 % (33.0-51.0); Hemoglobin* 12.1 gm/dL (12.0-16.0); Immature Granulocytes Abs Auto 0.02 K/uL (0.00-0.30); Immature Granulocytes Pct Auto 0.3 %; Mean Corpuscular HGB Conc 32 gm/dL (32-36); Mean Corpuscular Hemoglobin 30 pg (26-34); Mean Corpuscular Volume 91 fL (80-100); RDW Coefficient of Variation % 15.5 % (11.5-15.5); Red Blood Count* 4.10 m/uL (4.00-5.20); White Blood Count* 6.41 K/uL (4.50-11.00)
[2024-09-29 14:11] LABS: Lymphocytes Absolute Auto 1.10 K/uL (0.90-2.90); Slide Review Reflex No
[2024-09-29 14:26] LABS: Albumin* 4.2 g/dL (3.3-5.0); Chloride* 102 mmol/L (96-114); Potassium* 4.0 mmol/L (3.6-5.1); Sodium* 137 mmol/L (135-149)
[2024-09-29 14:29] LABS: Alanine Aminotransferase* 15 U/L (4-35); Alkaline Phosphatase* 67 U/L (40-150); Anion Gap 7 mEq/L (7-15); Aspartate Amino Transferase* 30 U/L (12-35); Bilirubin Total* 0.6 mg/dL (0.1-1.5); Blood Urea Nitrogen* 34 mg/dL (7-30); Calcium* 9.3 mg/dL (8.4-10.6); Carbon Dioxide* 28 mmol/L (20-32); Creatinine* 1.1 mg/dL (0.5-1.5); Estimated Glomerular Filt Rate 52 ml/min; Glucose* 93 mg/dL (60-115); Total Protein* 6.9 g/dL (6.0-8.3)
[2024-09-30 15:09] LABS: Free T4 Free Thyroxine* 1.76 ng/dL (0.70-1.85)
[2024-10-02 01:27] LABS: Free T3 2.3 pg/mL (2.5-4.3)
--- NOTE | 2024-10-05 12:08 | ONC.NURNOTE ---
Dr. Mitchell reviewed TSH,T3 and T4 and due to TSH and T3 being low Levothyroxine increased to 100mcg daily and referral for endocrinology placed as well. Inspector Returned Materials spoke with Dario and plan is for treatment tomorrow and they will apple picking supervisor new prescription and start that tomorrow
[2024-10-06 11:11] VITALS: BP 153/86; PULSE 72; RESP 18; TEMP 35.8; O2SAT 92
[2024-10-06] MEDS: DURVALUMAB 1,500 MG, TUBING PRIMARY 1 EACH, In-line 0.2 micron filter set 1 EACH in 0.9... 280 MG IVPB (11:48)
[2024-10-06] MEDS: HEPARIN 500 UNIT/5 ML SYRINGE IVF (13:00)
[2024-10-06] MEDS: SODIUM CHLORIDE 0.9 % (FLUSH) 10 ML SYRINGE IVF (13:00)
[2024-11-03] MEDS: HEPARIN 500 UNIT/5 ML SYRINGE IVF (13:30)
[2024-11-03] MEDS: SODIUM CHLORIDE 0.9 % (FLUSH) 10 ML SYRINGE IVF (13:30)
[2024-11-03 13:56] LABS: Hematocrit* 36.8 % (33.0-51.0); Hemoglobin* 11.9 gm/dL (12.0-16.0); Immature Granulocytes Abs Auto 0.01 K/uL (0.00-0.30); Immature Granulocytes Pct Auto 0.2 %; Lymphocytes Absolute Auto 1.15 K/uL (0.90-2.90); Mean Corpuscular HGB Conc 32 gm/dL (32-36); Mean Corpuscular Hemoglobin 31 pg (26-34); Mean Corpuscular Volume 95 fL (80-100); RDW Coefficient of Variation % 14.1 % (11.5-15.5); Red Blood Count* 3.89 m/uL (4.00-5.20); Slide Review Reflex No; White Blood Count* 5.67 K/uL (4.50-11.00)
[2024-11-03 14:47] LABS: Albumin* 4.2 g/dL (3.3-5.0); Chloride* 104 mmol/L (96-114); Potassium* 4.4 mmol/L (3.6-5.1); Sodium* 139 mmol/L (135-149)
[2024-11-03 14:50] LABS: Alanine Aminotransferase* 16 U/L (4-35); Alkaline Phosphatase* 63 U/L (40-150); Anion Gap 6 mEq/L (7-15); Aspartate Amino Transferase* 31 U/L (12-35); Bilirubin Total* 0.5 mg/dL (0.1-1.5); Blood Urea Nitrogen* 28 mg/dL (7-30); Calcium* 9.2 mg/dL (8.4-10.6); Carbon Dioxide* 29 mmol/L (20-32); Creatinine* 1.0 mg/dL (0.5-1.5); Estimated Glomerular Filt Rate 59 ml/min; Glucose* 94 mg/dL (60-115); Total Protein* 7.2 g/dL (6.0-8.3)
[2024-11-04] MEDS: SODIUM CHLORIDE 0.9 % (FLUSH) 10 ML SYRINGE IVF ×2 (10:25→11:31)
[2024-11-04] MEDS: DURVALUMAB 1,500 MG, TUBING PRIMARY 1 EACH, In-line 0.2 micron filter set 1 EACH in 0.9... 280 MG IVPB (10:27)
[2024-11-04] MEDS: HEPARIN 500 UNIT/5 ML SYRINGE IVF (11:31)
[2024-11-06 10:25] LABS: Free T4 Free Thyroxine* 1.91 ng/dL (0.70-1.85)
[2024-12-09 13:59] LABS: Hematocrit* 35.7 % (33.0-51.0); Hemoglobin* 11.6 gm/dL (12.0-16.0); Immature Granulocytes Abs Auto 0.01 K/uL (0.00-0.30); Immature Granulocytes Pct Auto 0.2 %; Lymphocytes Absolute Auto 1.15 K/uL (0.90-2.90); Mean Corpuscular HGB Conc 33 gm/dL (32-36); Mean Corpuscular Hemoglobin 30 pg (26-34); Mean Corpuscular Volume 93 fL (80-100); RDW Coefficient of Variation % 13.3 % (11.5-15.5); Red Blood Count* 3.85 m/uL (4.00-5.20); White Blood Count* 5.58 K/uL (4.50-11.00)
[2024-12-09 14:03] LABS: Slide Review Reflex No
[2024-12-09 14:14] LABS: Albumin* 3.8 g/dL (3.3-5.0); Chloride* 102 mmol/L (96-114); Sodium* 135 mmol/L (135-149)
[2024-12-09 14:15] LABS: Potassium* 4.1 mmol/L (3.6-5.1)
[2024-12-09 14:17] LABS: Alanine Aminotransferase* 15 U/L (4-35); Alkaline Phosphatase* 78 U/L (40-150); Anion Gap 6 mEq/L (7-15); Aspartate Amino Transferase* 30 U/L (12-35); Bilirubin Total* 0.5 mg/dL (0.1-1.5); Blood Urea Nitrogen* 28 mg/dL (7-30); Carbon Dioxide* 27 mmol/L (20-32); Creatinine* 0.9 mg/dL (0.5-1.5); Est. Creatinine Clearance* 36.68; Estimated Glomerular Filt Rate 67 ml/min; Total Protein* 6.8 g/dL (6.0-8.3)
[2024-12-09 14:18] LABS: Calcium* 9.0 mg/dL (8.4-10.6); Glucose* 89 mg/dL (60-115)
[2024-12-10] MEDS: SODIUM CHLORIDE 0.9 % (FLUSH) 10 ML SYRINGE IVF ×2 (14:38→15:45)
[2024-12-10] MEDS: DURVALUMAB 1,500 MG, TUBING PRIMARY 1 EACH, In-line 0.2 micron filter set 1 EACH in 0.9... 280 MG IVPB (14:40)
[2024-12-10] MEDS: HEPARIN 500 UNIT/5 ML SYRINGE IVF (15:45)
[2025-01-13 15:04] LABS: Hematocrit* 38.6 % (33.0-51.0); Hemoglobin* 12.5 gm/dL (12.0-16.0); Immature Granulocytes Abs Auto 0.06 K/uL (0.00-0.30); Immature Granulocytes Pct Auto 0.9 %; Mean Corpuscular HGB Conc 32 gm/dL (32-36); Mean Corpuscular Hemoglobin 30 pg (26-34); Mean Corpuscular Volume 91 fL (80-100); RDW Coefficient of Variation % 13.4 % (11.5-15.5); Red Blood Count* 4.24 m/uL (4.00-5.20); White Blood Count* 6.72 K/uL (4.50-11.00)
[2025-01-13 15:09] LABS: Lymphocytes Absolute Auto 1.10 K/uL (0.90-2.90); Slide Review Reflex No
[2025-01-13 15:14] LABS: Albumin* 4.0 g/dL (3.3-5.0); Chloride* 102 mmol/L (96-114); Sodium* 135 mmol/L (135-149)
[2025-01-13 15:15] LABS: Potassium* 4.2 mmol/L (3.6-5.1)
[2025-01-13 15:17] LABS: Alanine Aminotransferase* 12 U/L (4-35); Alkaline Phosphatase* 71 U/L (40-150); Anion Gap 7 mEq/L (7-15); Aspartate Amino Transferase* 25 U/L (12-35); Bilirubin Total* 0.5 mg/dL (0.1-1.5); Blood Urea Nitrogen* 22 mg/dL (7-30); Carbon Dioxide* 26 mmol/L (20-32); Creatinine* 0.8 mg/dL (0.5-1.5); Est. Creatinine Clearance* 36.68; Estimated Glomerular Filt Rate 77 ml/min; Total Protein* 6.6 g/dL (6.0-8.3)
[2025-01-13 15:18] LABS: Calcium* 9.4 mg/dL (8.4-10.6); Glucose* 103 mg/dL (60-115)
[2025-01-14 13:22] VITALS: BP 156/89; PULSE 72; RESP 18; TEMP 36.4; O2SAT 96
[2025-01-14] MEDS: DURVALUMAB 1,500 MG, TUBING PRIMARY 1 EACH, In-line 0.2 micron filter set 1 EACH in 0.9... 280 MG IVPB (13:57)
[2025-01-14] MEDS: SODIUM CHLORIDE 0.9 % (FLUSH) 10 ML SYRINGE IVF ×2 (13:57→15:01)
[2025-01-14] MEDS: HEPARIN 500 UNIT/5 ML SYRINGE IVF (15:01)
--- NOTE | 2025-01-15 09:56 | ONC.NURNOTE ---
Pt's called this morning to report that pt was at [facility] after experiencing a stroke (bleed) last night. She is stable. He was needing the name of her immunotherapy drug. RN provided the info and offered support.
--- NOTE | 2025-02-05 14:46 | ONC.NURNOTE ---
Pt's , Mina, called today to report that Anila has had another mini stroke. They are in the [facility] ER at this time. Port surgery documentation was requested. This RN faxed surgery note as requested. Will update Dr. Mitchell re: new stroke.
--- NOTE | 2025-02-08 12:36 | ONC.NURNOTE ---
SATURDAY PAOLA> patient's called and explained that she was having health problems at the [facility] in [place] and might not be able to make it to her appointment on 02/08
--- NOTE | 2025-02-10 11:35 | ONC.NURNOTE ---
Pt discharged from [facility] on 02/09/25 after having multiple strokes. Discussed with Dr. Mitchell this morning and she would like pt to wait 3-4 weeks before resuming Imfinzi. Pt scheduled for labs and md appt on 03/09/25 and Imfinzi on 03/11/25.
[2025-03-09 08:37] LABS: Hematocrit* 33.8 % (33.0-51.0); Hemoglobin* 10.9 gm/dL (12.0-16.0); Immature Granulocytes Abs Auto 0.05 K/uL (0.00-0.30); Immature Granulocytes Pct Auto 1.1 %; Lymphocytes Absolute Auto 0.98 K/uL (0.90-2.90); Mean Corpuscular HGB Conc 32 gm/dL (32-36); Mean Corpuscular Hemoglobin 30 pg (26-34); Mean Corpuscular Volume 92 fL (80-100); RDW Coefficient of Variation % 14.0 % (11.5-15.5); Red Blood Count* 3.69 m/uL (4.00-5.20); White Blood Count* 4.76 K/uL (4.50-11.00)
[2025-03-09] MEDS: HEPARIN 500 UNIT/5 ML SYRINGE IVF (08:38)
[2025-03-09] MEDS: SODIUM CHLORIDE 0.9 % (FLUSH) 10 ML SYRINGE IVF (08:38)
[2025-03-09 08:39] LABS: Slide Review Reflex No
[2025-03-09 08:48] LABS: Chloride* 108 mmol/L (96-114)
[2025-03-09 08:49] LABS: Albumin* 3.7 g/dL (3.3-5.0); Potassium* 3.6 mmol/L (3.6-5.1); Sodium* 138 mmol/L (135-149)
[2025-03-09 08:51] LABS: Blood Urea Nitrogen* 40 mg/dL (7-30); Creatinine* 0.9 mg/dL (0.5-1.5); Est. Creatinine Clearance* 38.44; Estimated Glomerular Filt Rate 67 ml/min
[2025-03-09 08:52] LABS: Alanine Aminotransferase* 19 U/L (4-35); Alkaline Phosphatase* 75 U/L (40-150); Anion Gap 3 mEq/L (7-15); Aspartate Amino Transferase* 31 U/L (12-35); Bilirubin Total* 0.7 mg/dL (0.1-1.5); Calcium* 9.3 mg/dL (8.4-10.6); Carbon Dioxide* 27 mmol/L (20-32); Glucose* 104 mg/dL (60-115); Total Protein* 6.8 g/dL (6.0-8.3)
[2025-03-11 13:12] VITALS: BP 132/82; PULSE 71; RESP 15; TEMP 37.2; O2SAT 91
[2025-03-11] MEDS: SODIUM CHLORIDE 0.9 % (FLUSH) 10 ML SYRINGE IVF ×2 (13:35→14:57)
[2025-03-11] MEDS: DURVALUMAB 1,500 MG, TUBING PRIMARY 1 EACH, In-line 0.2 micron filter set 1 EACH in 0.9... 280 MG IVPB (13:52)
[2025-03-11] MEDS: HEPARIN 500 UNIT/5 ML SYRINGE IVF (14:57)
== END 2025-03-28 23:59 | disposition home or self-care (01) ==
LOC: CCIC 13:00
PROVIDERS: Clinical Nurse Specialist; PCP Internal Medicine; Referring Provider Internal Medicine; Visit Provider Internal Medicine Hematology & Oncology
DX: Z51.12 Encounter for antineoplastic immunotherapy (principal); C34.01 Malignant neoplasm of right main bronchus
CPT/HCPCS: 36415; 36591; 80053; 84439; 84443; 84481; 85025; 96413; 99215; G0463; J1642; J7050; J9173

== ENCOUNTER 2025-04-14 15:00 | Outpatient (CLI) | payer MEDICARE, BC, SELFPAY ==
--- NOTE | 2025-04-14 15:00 | CRLHL7_ITS ---
For Patients: As a result of the Century Cures Act, medical imaging exams and procedure reports are released immediately into your electronic medical record. You may view this report before your referring provider. If you have questions, please contact your health care provider. Indication: multifocal lung cancer s/p chemo and radiation; monitor Technique: CT chest without Please note that all CT scans at this facility use dose modulation, iterative reconstruction, and/or weight-based dosing when appropriate to reduce radiation dose to as low as reasonably achievable. Comparison: CT 06/30/2024, CT-PET 01/05/2025 Findings: Subpleural scarring at the posteromedial left lower lobe, not significantly changed. Tiny 2 millimeter nodule in the left lung base is also unchanged. Masslike posttreatment change to the right lower lobe is similar to the recent CT PET. Posttreatment change to the right upper lobe also similar to the recent CT PET with linear thickening about the bronchovascular bundle. Dense atherosclerotic changes. Incidental retroaortic right subclavian artery. No adenopathy. Nonobstructing stone right kidney. No hiatal hernia. Unchanged nodular density within the left lung apex. Somewhat mottled appearance to the osseous structures without fracture or focal destructive lesion. Impression: No significant change since the CT PET 01/05/2025. Stable posttreatment changes in the right upper lobe and right lower lobe. Stable subpleural scarring in the left lower lobe. Stable left apical nodule. Also stable left posterior hilar density in the left lower lobe. Please note that all CT scans at this facility use dose modulation, iterative reconstruction, and/or weight-based dosing when appropriate to reduce radiation dose to as low as reasonably achievable. Dictated by Phil Muhammad MD @ 04/15/2025 9:52:16 AM (Electronically Signed)
== END 2025-04-14 15:01 | disposition home or self-care (01) ==
LOC: CT 15:01
PROVIDERS: PCP Internal Medicine; Visit Provider Nurse Practitioner
DX: C34.91 Malignant neoplasm of unspecified part of right bronchus or lung (principal); C34.92 Malignant neoplasm of unspecified part of left bronchus or lung
CPT/HCPCS: 71250